=== PATIENT | female | born 1990 | race African-American/Black ===

== ENCOUNTER → 2021-06-17 10:03 | Outpatient (CLI) | payer OTHER, SELFPAY ==
[2021-06-17 12:08] LABS: Absolute Lymphocyte Count 1.54 X10^3/uL (0.83-4.51); Absolute Neutrophil Count 3.9 X10^3/uL (2.0-7.7); Basophil# 0.04 X10^3/uL; Basophil% 0.7 % (0-1); Eosinophil# 0.05 X10^3/uL; Eosinophils% 0.8 % (0-5); Hematocrit 32.3 % (37-47); Hemoglobin 11.2 g/dL (12.0-15.0); Lymphocyte # 1.54 X10^3/ul (0.83-4.51); Mean Corp Hgb Conc 34.7 g/dL (32-36); Mean Corpuscular Hgb 31.1 pg (27.0-32.0); Mean Corpuscular Volume 89.7 fL (81-99); Mean Platelet Vol. 10.3 fl (6.2-12.0); Monocyte# 0.58 X10^3/uL; Monocyte% 9.4 % (0-10); NRBC Flagged by Analyzer 0 % (0-5); Neutrophil # 3.92 X10^3/uL (2.7-7.7); Neutrophil % 63.8 % (47-70); Platelet Count 319 K/mm3 (150-450); RBC Distribution Width CV 13.3 % (11.6-14.6); RBC Distribution Width SD 43.9 fl (35.1-43.9); White Blood Count 6.2 K/mm3 (4.4-11.0)
[2021-06-17 12:52] LABS: HIV - WCH Non-Reactive (Nonreactive); Hepatitis B Surface Antigen Non-Reactive (Nonreactive); Hepatitis C Antibody Non-Reactive (Nonreactive); Rubella IgG Reactive (Nonreactive); Syphilis Antibodies Non-reactive
[2021-06-19 07:08] LABS: Chlamydia By Nucleic Acid AMP Negative (Negative)
[2021-06-19 20:56] LABS: HPV APTIMA, High Risk Negative (Negative)
[2021-06-19 21:05] LABS: Gonococcus By Nucleic Acid AMP Negative (Negative)
== END ==
PROVIDERS: Visit Provider Obstetrics & Gynecology
DX: Z34.82 Encounter for supervision of other normal pregnancy, second trimester (principal)
CPT/HCPCS: 85025; 86703; 86762; 86780; 86803; 87086; 87088; 87340; 87491; 87591; 87624; 88175; G0145

== ENCOUNTER → 2021-08-12 08:39 | Outpatient (CLI) | payer OTHER, SELFPAY ==
[2021-08-12 08:53] LABS: Hematocrit 28.7 % (37-47); Hemoglobin 9.9 g/dL (12.0-15.0); Mean Corp Hgb Conc 34.5 g/dL (32-36); Mean Corpuscular Hgb 30.9 pg (27.0-32.0); Mean Corpuscular Volume 89.7 fL (81-99); Mean Platelet Vol. 9.6 fl (6.2-12.0); Platelet Count 297 K/mm3 (150-450); RBC Distribution Width CV 11.8 % (11.6-14.6); White Blood Count 7.3 K/mm3 (4.4-11.0)
[2021-08-12 09:26] LABS: Glucose Challenge Gest 1H 50g 119 mg/dL (70-140)
== END ==
PROVIDERS: Visit Provider Obstetrics & Gynecology
DX: Z34.82 Encounter for supervision of other normal pregnancy, second trimester (principal)
CPT/HCPCS: 36415; 82950; 85027

== ENCOUNTER 2021-08-14 22:54 | Emergency (ER) | payer OTHER, SELFPAY ==
[2021-08-14 22:54] VITALS: BP 115/61; PULSE 87; RESP 16; TEMP 36.6; O2SAT 99; BMI 29.5
--- NOTE | 2021-08-14 23:15 | EDS_ITS ---
HPI History of Present Illness Chief Complaint: Abd Pain Informant: patient Narrative Narrative: Patient presents with vomiting with slight hematemesis and left upper quadrant pain. She is diagnosed with a duodenal ulcer about 5 or 6 years ago. It sounds like she has been on and off treatment. She started having more symptoms back in April of this year. She was having left upper quadrant pain, nausea vomiting with some blood. She had an endoscopy in April that verified an ulcer but they also found out she was at the time. It sounds like she was not started on any medications then. She has been having this problem ever since. She saw what sounds like her OB physician just recently and was prescribed ondansetron. It is not helping a lot. She has vomiting mostly at night. During the day she seems to be better. She is eating and drinking at times. She will vomit up some bright red blood on occasion. No clots. She will also vomit other times with no blood. It sounds like she is not on any meds for the ulcer specifically. Patient denies any pelvic pain. She has no pain below the umbilicus. She has no vaginal discharge or bleeding. No dysuria. Past medical history includes peptic ulcer disease Medications: Zofran No known drug allergies No recent surgeries [facility] Medical History (Updated 08/15/21 @ 00:[address] Shawn Jackson MD) Sickle cell anemia Home Medications esomeprazole magnesium [Nexium] 20 mg PO DAILY #30 cap 08/15/21 [Rx Last Taken Unknown] promethazine [Promethegan] 25 mg RECTAL Q6H PRN PRN #6 suppos. 08/15/21 [Rx Last Taken Unknown] Allergy/AdvReac Type Severity Reaction Status Date / Time No Known Allergies Allergy Verified 08/14/21 22:57 Social History Smoking Status: Never smoker ROS ROS ED Constitutional Constitutional ED: Denies chills or fever(s) ENT ENT ED: Denies rhinorrhea or sore throat Cardiovascular Cardiovascular: Denies chest pain Respiratory/Chest Respiratory/Chest: Denies cough, dyspnea or sputum Gastrointestinal Gastrointestinal: Reports abdominal pain, nausea and vomiting; Denies constipation, diarrhea or melena Genitourinary Genitourinary ED: Reports other Details: Patient currently 24 weeks . ; Denies dysuria, hematuria or urinary frequency Musculoskeletal Musculoskeletal: Denies back pain or neck pain Integumentary Denies rash Neurologic Neurologic: Denies headache(s) Endocrine Endocrinology: Denies polydipsia or polyuria Allergic/Immunologic Allergic/Immunologic ED: Denies mouth swelling or urticaria EXAM Physical Exam Const Vital Signs: 08/14/21 22:54 Temperature 97.8 F Temperature Source Temporal Pulse Rate 87 Respiratory Rate 16 Blood Pressure 115/61 Blood Pressure Mean 79 Pulse Ox 99 Oxygen Delivery Method Room Air Positive well nourished and well developed General Appearance ED: well developed and NAD; Negative for cyanotic, diaphoretic or pallor HEENT Reports dry mucous membranes Mouth ED: Yes dry mucous membranes Mouth: dry mucous membranes Eyes General Eye ED: Negative for pale conjunctiva or scleral icterus Neck no lymphadenopathy and no JVD Chest Wall inspection of chest normal Resp normal respiratory effort and clear to auscultation bilaterally Effort and Inspection: Negative for pain with movement Auscultation: Negative for rales, rhonchi or wheezes Cardio regular rate and regular rhythm GI normal to inspection, nondistended, normoactive bowel sounds, non-tender and non-distended GI Narrative: Uterus is palpable near her umbilicus. Patient has minimal if any epigastric area tenderness but no rebound or guarding. No right upper quadrant tenderness. Patient does vomit/wretch and spit out a small amount clear liquid while I am in the room. But there is no blood in it at this time. Palpation: soft Back/Spine no CVA tenderness Extremity normal to inspection General Extremety ED: Negative for edema or tenderness General Extremity: Negative for edema Neuro Sensorium / Orientation: alert Psych mental status grossly normal Skin no rashes or lesions noted and no wounds General Skin Exam: Negative for jaundice or pallor MDM MDM MDM Narrative Medical decision making narrative: Patient had hemoglobin of 9.9 couple days ago. She also is blood type positive. Patient's blood work shows a hemoglobin of 9.2. This is a slight reduction but not a significant change considering the variation on this test. Electrolytes show no marked abnormalities. Liver function tests look good. Patient's recheck. She has not had any vomiting or retching. She feels better. She is not having the nausea now. Her epigastric ache is also much better. I think this patient likely is having exacerbation of her duodenal/peptic ulcer disease. We will get her on proton pump inhibitor. Nexium is a category B drug. I will also add some Phenergan so she has 2 options for nausea. She will follow up with her OB physician, Dr. Winn. Lab Data Attestation: I reviewed the patient's lab results. Labs: Laboratory Results - last 24 hr 08/14/21 08/14/21 23:25 23:25 WBC 6.9 RBC 2.95 L Hgb 9.2 L Hct 26.6 L MCV 90.2 MCH 31.2 MCHC 34.6 RDW Std Deviation 38.4 RDW Coeff of French 11.8 Plt Count 283 MPV 9.6 Immature Gran % (Auto) 1.200 H Neut % (Auto) 60.7 Lymph % (Auto) 25.4 Meade % (Auto) 11.4 H Eos % (Auto) 0.9 Baso % (Auto) 0.4 Absolute Neuts (auto) 4.2 Absolute Lymphs (auto) 1.74 Nucleated RBC % 0 Sodium 139 Potassium 3.5 Chloride 107 Carbon Dioxide 24.0 Anion Gap 8 BUN 8 Creatinine 0.65 Estim Creat Clear Calc 126.50 Est GFR (MDRD) Af Amer 136 Est GFR (MDRD) Non-Af 112 BUN/Creatinine Ratio 12.3 Glucose 87 Calcium 8.6 Total Bilirubin 0.30 AST 23 ALT 46 Alkaline Phosphatase 66 Total Protein 6.4 Albumin 2.7 L Globulin 3.7 Albumin/Globulin Ratio 0.7 L Discharge Plan Triage Chief Complaint: Abd Pain ED Provider: Shawn Jackson Dx/Rx/DC Orders Clinical Impression: Peptic ulcer disease, Epigastric pain Instructions: ED PUD Prescriptions: New promethazine [Promethegan] 25 MG suppository 25 mg RECTAL Q6H PRN PRN (Reason: Nausea) Qty: 6 RF: 0 esomeprazole magnesium [Nexium] 20 mg capsule,delayed release(DR/EC) 20 mg PO DAILY Qty: 30 RF: 0 Primary Care Provider: Care Physician,No Primary Referrals: Liza Winn DO [STAFF PHYSICIAN] - 3-5 Days Care Physician,No Primary [Primary Care Provider] - Disposition Disposition: Home, Self Care
[2021-08-14] MEDS: Ondansetron 4 MG/2 ML Vial IV (23:23)
[2021-08-14] MEDS: 0.9% Normal Saline 1,000 ML 1000 ML IV (23:23)
[2021-08-14 23:43] LABS: Absolute Lymphocyte Count 1.74 X10^3/uL (0.83-4.51); Absolute Neutrophil Count 4.2 X10^3/uL (2.0-7.7); Basophil# 0.03 X10^3/uL; Basophil% 0.4 % (0-1); Eosinophil# 0.06 X10^3/uL; Eosinophils% 0.9 % (0-5); Hematocrit 26.6 % (37-47); Hemoglobin 9.2 g/dL (12.0-15.0); Lymphocyte # 1.74 X10^3/ul (0.83-4.51); Lymphocyte % 25.4 % (19-41); Mean Corp Hgb Conc 34.6 g/dL (32-36); Mean Corpuscular Hgb 31.2 pg (27.0-32.0); Mean Corpuscular Volume 90.2 fL (81-99); Mean Platelet Vol. 9.6 fl (6.2-12.0); Monocyte# 0.78 X10^3/uL; Monocyte% 11.4 % (0-10); NRBC Flagged by Analyzer 0 % (0-5); Neutrophil # 4.16 X10^3/uL (2.7-7.7); Neutrophil % 60.7 % (47-70); Platelet Count 283 K/mm3 (150-450); RBC Distribution Width CV 11.8 % (11.6-14.6); RBC Distribution Width SD 38.4 fl (35.1-43.9); Red Blood Count 2.95 M/mm3 (4.2-5.4); White Blood Count 6.9 K/mm3 (4.4-11.0)
[2021-08-14 23:48] LABS: ALB/GLOB Ratio 0.7 RATIO (0.9-2.4); AST(SGOT) 23 U/L (15-37); Alanine Aminotransfer ALT/SGPT 46 U/L (13-56); Albumin, Serum 2.7 g/dL (3.2-5.0); Alkaline Phosphatase 66 U/L (45-117); Anion Gap 8 (5-15); BUN 8 mg/dL (7-18); BUN/Creat Ratio 12.3 RATIO (10-20); Calcium,Total 8.6 mg/dL (8.5-10.1); Chloride 107 mmol/L (98-107); Creatinine, Serum 0.65 mg/dL (0.55-1.02); EST Glomerular Filtration Rate 112 mL/min (>60); Est Glom Filt Rate - Afr Amer 136 mL/min (>60); Globulin 3.7 g/dL (2.2-4.2); Glucose 87 mg/dL (74-106); Potassium 3.5 mmol/L (3.5-5.1); Protein, Total 6.4 g/dL (6.4-8.2); Sodium Level 139 mmol/L (136-145)
[2021-08-15 00:41] VITALS: BP 127/78; PULSE 70; RESP 16; O2SAT 100
== END 2021-08-15 00:43 | disposition home or self-care (01) ==
PROVIDERS: Emergency Provider Emergency Medicine
DX: O99.619 Diseases of the digestive system complicating pregnancy, unspecified trimester (principal); K26.9 Duodenal ulcer, unspecified as acute or chronic, without hemorrhage or perforation; Z3A.00 Weeks of gestation of pregnancy not specified
CPT/HCPCS: 80053; 85025; 96361; 96374; 99283; J7030; J2405; J3490

== ENCOUNTER → 2021-08-23 12:58 | Outpatient (CLI) | payer OTHER, SELFPAY ==
[2021-08-23 13:15] LABS: Absolute Lymphocyte Count 1.58 X10^3/uL (0.83-4.51); Absolute Neutrophil Count 6.4 X10^3/uL (2.0-7.7); Basophil# 0.04 X10^3/uL; Basophil% 0.5 % (0-1); Eosinophil# 0.06 X10^3/uL; Eosinophils% 0.7 % (0-5); Hematocrit 29.1 % (37-47); Hemoglobin 10.1 g/dL (12.0-15.0); Lymphocyte # 1.58 X10^3/ul (0.83-4.51); Lymphocyte % 17.8 % (19-41); Mean Corp Hgb Conc 34.7 g/dL (32-36); Mean Corpuscular Hgb 31.7 pg (27.0-32.0); Mean Corpuscular Volume 91.2 fL (81-99); Mean Platelet Vol. 9.5 fl (6.2-12.0); Monocyte# 0.79 X10^3/uL; Monocyte% 8.9 % (0-10); NRBC Flagged by Analyzer 0 % (0-5); Neutrophil # 6.36 X10^3/uL (2.7-7.7); Neutrophil % 71.5 % (47-70); Platelet Count 302 K/mm3 (150-450); RBC Distribution Width CV 11.9 % (11.6-14.6); RBC Distribution Width SD 39.9 fl (35.1-43.9); Red Blood Count 3.19 M/mm3 (4.2-5.4); White Blood Count 8.9 K/mm3 (4.4-11.0)
== END ==
PROVIDERS: Visit Provider Internal Medicine Gastroenterology
DX: K27.9 Peptic ulcer, site unspecified, unspecified as acute or chronic, without hemorrhage or perforation (principal)
CPT/HCPCS: 36415; 85025

== ENCOUNTER 2021-10-17 09:39 | Outpatient (CLI) | payer OTHER, SELFPAY ==
[2021-10-17 10:35] LABS: Absolute Lymphocyte Count 1.66 X10^3/uL (0.83-4.51); Basophil# 0.04 X10^3/uL; Basophil% 0.5 % (0-1); Eosinophil# 0.05 X10^3/uL; Eosinophils% 0.7 % (0-5); Hematocrit 27.7 % (37-47); Hemoglobin 9.1 g/dL (12.0-15.0); Lymphocyte # 1.66 X10^3/ul (0.83-4.51); Lymphocyte % 22.2 % (19-41); Mean Corp Hgb Conc 32.9 g/dL (32-36); Mean Corpuscular Hgb 28.6 pg (27.0-32.0); Mean Corpuscular Volume 87.1 fL (81-99); Mean Platelet Vol. 9.8 fl (6.2-12.0); Monocyte# 0.71 X10^3/uL; Monocyte% 9.5 % (0-10); NRBC Flagged by Analyzer 0 % (0-5); Neutrophil # 4.96 X10^3/uL (2.7-7.7); Neutrophil % 66.2 % (47-70); Platelet Count 292 K/mm3 (150-450); RBC Distribution Width CV 12.8 % (11.6-14.6); RBC Distribution Width SD 40.9 fl (35.1-43.9); Red Blood Count 3.18 M/mm3 (4.2-5.4); White Blood Count 7.5 K/mm3 (4.4-11.0)
[2021-10-17 11:25] LABS: ALB/GLOB Ratio 0.7 RATIO (0.9-2.4); AST(SGOT) 16 U/L (15-37); Alanine Aminotransfer ALT/SGPT 26 U/L (13-56); Albumin, Serum 2.7 g/dL (3.2-5.0); Alkaline Phosphatase 104 U/L (45-117); Anion Gap 7 (5-15); BUN 5 mg/dL (7-18); BUN/Creat Ratio 7.8 RATIO (10-20); Calcium,Total 8.6 mg/dL (8.5-10.1); Chloride 109 mmol/L (98-107); Creatinine, Serum 0.64 mg/dL (0.55-1.02); EST Glomerular Filtration Rate 115 mL/min (>60); Est Glom Filt Rate - Afr Amer 139 mL/min (>60); Globulin 3.8 g/dL (2.2-4.2); Glucose 86 mg/dL (74-106); Potassium 3.8 mmol/L (3.5-5.1); Protein, Total 6.5 g/dL (6.4-8.2); Sodium Level 138 mmol/L (136-145)
== END 2021-10-17 23:59 | disposition short-term general hospital (02) ==
LOC: LAB 09:42
PROVIDERS: Visit Provider Nurse Practitioner Adult Health
DX: R11.2 Nausea with vomiting, unspecified (principal)
CPT/HCPCS: 36415; 80053; 85025

== ENCOUNTER 2021-10-31 12:24 | Outpatient (CLI) | payer OTHER, SELFPAY | END 2021-10-31 23:59 | disposition short-term general hospital (02) | LOC: LABSPEC 12:24 | PROVIDERS: Visit Provider Obstetrics & Gynecology | DX: Z36.85 Encounter for antenatal screening for Streptococcus B (principal) | CPT/HCPCS: 87081 ==

== ENCOUNTER 2021-11-30 06:20 | Inpatient (IN) | payer OTHER, SELFPAY ==
[2021-11-30 06:16] VITALS: TEMP 36.8
[2021-11-30 06:27] VITALS: BMI 33.0
[2021-11-30] MEDS: Lactated Ringers 1,000 ML 50 ML IV (06:35)
[2021-11-30] MEDS: Lactated Ringers 500 ML 999 ML IV ×2 (06:36→09:17)
[2021-11-30 06:50] LABS: Absolute Lymphocyte Count 1.49 X10^3/uL (0.83-4.51); Absolute Neutrophil Count 8.2 X10^3/uL (2.0-7.7); Basophil# 0.03 X10^3/uL; Basophil% 0.3 % (0-1); Eosinophil# 0.03 X10^3/uL; Eosinophils% 0.3 % (0-5); Hematocrit 27.5 % (37-47); Lymphocyte # 1.49 X10^3/ul (0.83-4.51); Lymphocyte % 13.8 % (19-41); Mean Corp Hgb Conc 32.7 g/dL (32-36); Mean Corpuscular Hgb 25.5 pg (27.0-32.0); Mean Corpuscular Volume 77.9 fL (81-99); Mean Platelet Vol. 10.3 fl (6.2-12.0); Monocyte# 0.97 X10^3/uL; NRBC Flagged by Analyzer 0 % (0-5); Platelet Count 335 K/mm3 (150-450); RBC Distribution Width CV 14.7 % (11.6-14.6); RBC Distribution Width SD 41.5 fl (35.1-43.9); Red Blood Count 3.53 M/mm3 (4.2-5.4); White Blood Count 10.8 K/mm3 (4.4-11.0)
[2021-11-30] MEDS: Ondansetron 4 MG/2 ML Vial IV (07:02)
[2021-11-30] MEDS: 0.9% Saline Lock 10 ML Syringe IV (07:02)
--- NOTE | 2021-11-30 08:06 | PCM.HP.BLA ---
History and Physical Date of Admission: 11/30/21 ACOG ANTEPARTUM RECORD - HISTORY AND PHYSICAL (11/30/2021) Name: KARISSA BOOGIE History of this : This is a 31 year old [id number] presents at 40 wks + 4 days gestation in active labor. OB Physician: TYRA ESQUEDA MD Burket's Physician: UNDECIDED ...................................................................... : 1990 Age: 31 Address: [address] [place] [address] Phone: (H) [phone] (O) [phone] Insurance Carrier: [employer] [id number] Emergency Contact: MARY EDWARDS [phone] ...................................................................... Final JACQUE: 11/26/21 By Ultrasound: 16 weeks PARITY: (G-Total Pregnancies P-Fullterm,Premature,Induced AB,Spont AB, Ectopics, Multiple,Living) JACQUE CONFIRMATION: By LMP: 02/15/21 Final JACQUE: 11/26/21 OB PROBLEM LIST: EPDS score at NOB visit= 16 Enc office classes. Absent atrial septum , s/p MFM consult. echo wnl, atrial septum visualized. Follow up Peds Cardio 1-2 weeks GI consult for hematemesis , saw Friend all wnl Sickle Cell Trait ALLERGIES: No Known Allergies MEDICATIONS: Pepcid 20 mg tablet One pill by mouth twice a day 28 mg iron-800 mcg tablet One pill by mouth once a day Tums 200 mg calcium (500 mg) chewable tablet Zofran 4 mg tablet 1 PO every four to six hours PRN Nausea SOCIAL HISTORY: Smoking - Never Alcohol Use - denies drinking Diet - balanced Diet, one cup coffee and Water intake- < 60 cc. 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 Enc to take 15-20 min walks most days. 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 Illicit Drug Use - denies use of street drugs Sexual Activity - Residence - Lives w/ a roommate Place of - [facility] Hours Worked - FT Spouse-Sig Other Name - Seda Arredondo Spouse-Sig Other Occupation - MD in [facility] PRIOR DELIVERY HISTORY DEL DATE GEST LAB WT LB WT OZ TYPE ANES LABOR TX ANTEPARTUM FLOW CHART VISIT GE RTC FU F F MD U U DATE WK MD WKS HT PN HR M SS BP ED WT MD GL D EF ST __ ____ ___ __ __ ___ __ __ __ ___ __ __ __ ___ __ 25 Feb 40 JM 1 40 V + + 120/68 0 216 - - 1 18 Feb 39 JMW 1 38 + + 118/64 216 - - 1 50 -2 10 Feb 38 JM 1 38 V + + 109/67 0 213 tr - 04 Nov JM 1 37 V + + 124/74 0 214 - - Oct JM 1 36 V + + 116/70 0 211 - - Oct JM 1 35 V + + 116/62 0 211 - - Oct JM 2 33 V + + O 110/62 0 205 - - Oct 03 JM 2 31 V on + 100/62 0 204 08 Oct 01 JM 2 29 - + + 118/64 0 202 tr - Aug 28 JM 4 25 - + + 108/58 0 194 - - Jul 26 JM 4 - - on + 110/60 0 190 tr - 12 Jul 24 JM 4 21 - + ? 100/58 0 190 ne ne ANTEPARTUM NOTE(S): Nov 28 2021: Nov 21 2021: Doing Well and Good FM Nov 13 2021: reviewed FM, SROM, and labor Nov 07 2021: Oct 31 2021: doing well Oct 24 2021: doing well Oct 10 2021: doing well Sep 24 2021: see note Sep 10 2021: doing well Aug 12 2021: Jul 29 2021: feelng well. Glucola given. AM Jul 15 2021: see note COMPREHENSIVE ANTEPARTUM NOTE(S): Nov 28 2021: Louceline is 40w2d here for PNV. Good FM. No edema. States she has been feeling some period like cramps since about 5am this morning. BR Nov 28 2021: 40 weeks, cervical exam 1 cm. Cramping. Scheduled for induction of labor weeks Cytotec 7 PM. JM Nov 21 2021: Louceline is 39w2d here for PNV good FM no edema. Doing well no concerns. Would like cervix checked. BR Nov 13 2021: 38wks, no complaints. JM Nov 07 2021: Louceline is 37w2d here for PNV doing well no concerns or complaints. Good FM. No edema. Slight contractions. Still need urine sample. BR Nov 07 2021: 37wks, GBS negative. JM Nov 03 2021: H taken to OB. tkg Oct 31 2021: Louceline is 36w2d here for PNV with FOB. Good FM no edema. doing well has no concerns or complaints. Still need urine sample. BR Oct 31 2021: 36 weeks, GBS collected today. JM Oct 24 2021: Louceline is 35w6d here for PNV. Good FM. No edema. No concerns or questions at this time. Still need a urine sample. BR Oct 24 2021: 35 weeks, for clarification her FINAL JACQUE: 11/26/21 as previously documented. [place]. JM Oct 10 2021: 33w6d here for PNV positive movement, no edema. Doing well has no questions or concerns at this time. Still needs a urine sample. BR Oct 10 2021: 33wk, no complaints. GERD improved. JM Sep 24 2021: Relates GI specialist took her off Nexium d/t her anemia. She is on Pepcid now. Still with some complaint of the heartburn. She also feel very tired. Good mvmt. Encouraged Influenza and Tdap vaccines. Unable to leave UA today. LMT Sep 24 2021: 31 weeks, no complaints. Saw Dr. Burnette, started on Nexium but stopped because of anemia. Okay to restart Nexium, will consider repeat CBC at 36 weeks for hemoglobin level. JM Sep 10 2021: Louceline is [id number] she is here today for a PNV. Positive movement. No edema. She states she is doing well with no complaints or concerns. BR Sep 10 2021: 29wk, 1hr GTT wnl. Hgb 9.9, iron daily. saw [facility] for echo with office u/s with no atrial septum, echo wnl atrial septum visualized. Suggested 1-[address] Burnette, started her on protein drinks and following iron levels. JM Aug 12 2021: Louceline here 25 week PNV. FM good. Edema check good. She is having vomiting with blood once a day. She is wanting a referral to supervisor gelatin plant. She does have acid reflux. CB Aug 12 2021: 25 weeks repeat ultrasound today for limited cardiac views not visualized atrial septum. Again today with not visualized atrial septum otherwise AGA and no abnormalities noted. Educated patient on findings, will consult M for Doppler. 1 hour GTT today. Patient with vomiting mostly after dinner x1 started to have blood in vomit consult to Dr. Burnette GI specialist. Rx Zofran sent. JM Jul 29 2021: 23 weeks, anatomy ultrasound today with limited heart otherwise within normal limits . Depression improving. 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 having difficulty with visa for [place]. Educated on counseling versus medication for depression, patient at this time is scheduled for counseling with [facility]. Will hold on medication. For 1 hour GTT next visit. Jul 15 2021: Karissa is here for visit. She relates having issues with nausea, heartburn, refulx. She has tried Pepcid and Tums without a lot of reliief. She relates that she has a history of hiatel hernia and reflux. She notes that certain foods make it worse. Encouraged her to avoid those and fried, fatty foods. She can try increasing Pepcid to bid. She also notes L low back pain. Tylenol, heatin Jul 15 2021: 21wk, panel within normal limits. Be positive. Pap within normal limits. Patient with GERD, discussed Pepcid and Tums and diet choices. Patient with early signs of depression, will rediscuss with patient and consider medications next visit. Patient's in [facility], needs paperwork to come to [facility] for delivery. for anatomy ultrasound next visit. Jul 15 2021: NOB VISIT- Karissa is here at 21.3 w gest with JACQUE 11-22-21 planning a vag del at [facility] unsure of epidural or post disch ped care. Plans to breastfeed. 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 Karissa has NKAD, is a lifetime non smoker, non drinker and denies any stree REVIEW OF SYSTEMS: GENERAL - Denies fever, or chills SKIN - Denies rash, new skin lesions, or change in moles EYES - Denies blurred vision, or change in visual acuity EARS - Denies ear pain, or difficulty hearing NOSE - Denies nasal congestion, discharge, or bleeding MOUTH - Denies sore throat, or difficulty swallowing NECK - Denies pain or swelling RESPIRATORY - Denies shortness of breath, cough, wheezing CARDIOVASCULAR - Denies palpitations, chest pain, orthopnea, PND, peripheral edema, syncope or claudication GASTROINTESTINAL - Denies nausea, vomiting, diarrhea, constipation, Denies abdominal pain, melena and or bright red blood GENITOURINARY - Denies dysuria, frequency of urination, urgency, or hesitancy MUSCULOSKELETAL - Denies joint or muscle pain, or back pain NEUROLOGICAL - Denies localized numbness, weakness, or tingling PSYCHIATRIC - Denies depression, anxiety, substance abuse or suicide attempts ENDOCRINE - Denies heat or cold intolerance, weight loss or gain, increasing thirst HEMATO-IMMUNOLOGIC - Denies easy bruising, bleeding, oral ulcerations or recurrent infections GENETICS SCREENING: Age 35+ years: No Thalassemia: No Neural Tube Defect: No Down Syndrome: No MERON-SACHS: No Sickle Cell Disease: Yes Hemophilia: No Musc. Dystrophy: No Cystic Fibrosis: No-declines screening Magi Chorea: No Mental Retardation: No Fragile X: No Other genetic: No Other defects: No SABs/still births: No Drugs since LMP: No INFECTION HISTORY: High risk AIDS: No High risk Hepatitis: No Exposed to TB: No Exposed to Herpes: No Rash/viral illness since LMP: No History of STD: No MENSTRUAL HISTORY: *Menses Amount/Duration: 5 to 7 daysMenses Regularity: IrregularMenarche (Age Onset): 14* PAST SUMMARY: PARITY: 1. Total Pregnancies............ 1 2. Full Term Pregnancies........ 0 3. Premature.................... 0 4. Abortions - Induced.......... 0 5. Abortions - Spontaneous...... 0 6. Ectopics..................... 0 7. Multiple Births.............. 0 8. Living Children.............. 0 PHYSICAL EXAMINATION General Appearence: 31 yo female in no acute distress Vital Signs: AF, VSS Heart: RRR without rubs or gallops Lungs: CTA x 2 Breasts: deferred Abdomen: gravid Pelvis: Cervix: Presentation: cephalic Station: -2 Fetus: Size: AGA Movement: present Heart: present LAB TEST(S) ORDERED SINCE:03/01/21 08/12/2021 GLUCOSE CHALLENGE GEST 1H 50G 08/12/2021 CBC-COMPLETE BLOOD CNT NO DIFF 06/19/2021 URINE CULTURE 06/19/2021 PAP IG HPV APTIMA 18,45 06/19/2021 CHLAMYDIA/GC KIRBY APTIMA 06/17/2021 RUBELLA IGG 06/17/2021 T AND S-NO CHARGE W/PNP 06/17/2021 L509.8000 06/17/2021 HIV - WC 06/17/2021 HEPATITIS C ANTIBODY 06/17/2021 HEPATITIS B SURFACE ANTIGEN 06/17/2021 CBC W/DIFF, AUTOMATED 11/30/2021 COVID 19 AG RAPID (RN COLLECT) 11/30/2021 CBC W/DIFF, AUTOMATED 11/03/2021 RULE OUT BETA STREP (GRP. B) == ==== Order Observation Description Value Ref_Range A* Site == ==== CBC W/DIFF, AUT NOTE [facility] CBC W/DIFF, AUT WBC 10.8 K/mm3 4.4-11.0 ML CBC W/DIFF, AUT RBC 3.53 M/mm3 4.2-5.4 L ML CBC W/DIFF, AUT HGB 9.0 g/dL 12.0-15.0 L ML CBC W/DIFF, AUT HCT 27.5 37-47 L ML CBC W/DIFF, AUT MCV 77.9 fL 81-99 L ML CBC W/DIFF, AUT MCH 25.5 pg 27.0-32.0 L ML CBC W/DIFF, AUT MCHC 32.7 g/dL 32-36 ML CBC W/DIFF, AUT RDW CV 14.7 11.6-14.6 H ML CBC W/DIFF, AUT RDW SD 41.5 fl 35.1-43.9 ML CBC W/DIFF, AUT PLT 335 K/mm3 150-450 ML CBC W/DIFF, AUT MPV 10.3 fl 6.2-12.0 ML CBC W/DIFF, AUT NEUT% 76.0 47-70 H ML CBC W/DIFF, AUT LY% 13.8 19-41 L ML CBC W/DIFF, AUT MONO% 9.0 0-10 ML CBC W/DIFF, AUT EO% 0.3 0-5 ML CBC W/DIFF, AUT BASO% 0.3 0-1 ML CBC W/DIFF, AUT IG% 0.600 0.0-0.9 ML IG% - Immature Granulocytes (promyelocytes, myelocytes and metamyelocytes) > 1% indicates that a LEFT SHIFT is Present. CBC W/DIFF, AUT ABSOLUTE NEUT 8.2 X10 3/uL 2.0-7.7 H ML CBC W/DIFF, AUT ABSOLUTE LYMPH 1.49 X10 3/uL 0.83-4.51 ML CBC W/DIFF, AUT NUCLEATED RBC 0 0-5 ML COVID 19 AG RAP NOTE [facility] RULE OUT BETA S NOTE [facility] GLUCOSE CHALLEN NOTE [facility] GLUCOSE CHALLEN GLU GEST 50G 1H 119 mg/dL 70-140 ML CBC-COMPLETE BL NOTE [facility]ZMAN CBC-COMPLETE BL WBC 7.3 K/mm3 4.4-11.0 ML CBC-COMPLETE BL RBC 3.20 M/mm3 4.2-5.4 L ML CBC-COMPLETE BL HGB 9.9 g/dL 12.0-15.0 L ML CBC-COMPLETE BL HCT 28.7 37-47 L ML CBC-COMPLETE BL MCV 89.7 fL 81-99 ML CBC-COMPLETE BL MCH 30.9 pg 27.0-32.0 ML CBC-COMPLETE BL MCHC 34.5 g/dL 32-36 ML CBC-COMPLETE BL RDW CV 11.8 11.6-14.6 ML CBC-COMPLETE BL RDW SD 38.0 fl 35.1-43.9 ML CBC-COMPLETE BL PLT 297 K/mm3 150-450 ML CBC-COMPLETE BL MPV 9.6 fl 6.2-12.0 ML URINE CULTURE NOTE GUZMAN PN N [facility]~[address] [place], [address]~ T AND AB SCREEN GEL NEGATIVE ML HEPATITIS C ANT NOTE [facility]ZMAN HEPATITIS C ANT HEPATITIS C AB Non-Reactive Nonreactive ML Non Reactive: < 0.8 Equivocal: >/= 0.8 to < 1.0 Reactive: >/= 1.0 The CDC recommends that a reactive/equivocal HCV antibody result be followed up by the HCV Nucleic Acid Amplification test (646048) HEPATITIS B PADMA NOTE [facility] HEPATITIS B PADMA HEP B SURF AG Non-Reactive Nonreactive ML HIV - [facility] NOTE [facility] HIV - H HIV Non-Reactive Nonreactive ML L509.8000 NOTE [facility]ZMAN L509.8000 SYPHILIS ABS Non-reactive ML RUBELLA IGG NOTE [facility]ZMAN RUBELLA IGG RUBELLA IGG Reactive Nonreactive ML Antibody Results Interpretation of Immune Status Non Reactive Presumed Non-Immune Equivocal Equivocal Reactive Presumed Immune CBC W/DIFF, AUT NOTE [facility] CBC W/DIFF, AUT WBC 6.2 K/mm3 4.4-11.0 ML CBC W/DIFF, AUT RBC 3.60 M/mm3 4.2-5.4 L ML CBC W/DIFF, AUT HGB 11.2 g/dL 12.0-15.0 L ML CBC W/DIFF, AUT HCT 32.3 37-47 L ML CBC W/DIFF, AUT MCV 89.7 fL 81-99 ML CBC W/DIFF, AUT MCH 31.1 pg 27.0-32.0 ML CBC W/DIFF, AUT MCHC 34.7 g/dL 32-36 ML CBC W/DIFF, AUT RDW CV 13.3 11.6-14.6 ML CBC W/DIFF, AUT RDW SD 43.9 fl 35.1-43.9 ML CBC W/DIFF, AUT PLT 319 K/mm3 150-450 ML CBC W/DIFF, AUT MPV 10.3 fl 6.2-12.0 ML CBC W/DIFF, AUT NEUT% 63.8 47-70 ML CBC W/DIFF, AUT LY% 25.0 19-41 ML CBC W/DIFF, AUT MONO% 9.4 0-10 ML CBC W/DIFF, AUT EO% 0.8 0-5 ML CBC W/DIFF, AUT BASO% 0.7 0-1 ML CBC W/DIFF, AUT IG% 0.300 0.0-0.9 ML IG% - Immature Granulocytes (promyelocytes, myelocytes and metamyelocytes) > 1% indicates that a LEFT SHIFT is Present. CBC W/DIFF, AUT ABSOLUTE NEUT 3.9 X10 3/uL 2.0-7.7 ML CBC W/DIFF, AUT ABSOLUTE LYMPH 1.54 X10 3/uL 0.83-4.51 ML CBC W/DIFF, AUT NUCLEATED RBC 0 0-5 ML CHLAMYDIA/GC NA NOTE [facility] CHLAMYDIA/GC NA CHLAMY,NUC ACID Negative Negative [facility]CI CHLAMYDIA/GC NA GC BY NUC ACID Negative Negative [facility]CI Performed at: - [facility], [place] [id number] Special Delivery Mail Carrier: Miriam Lerner MD, Phone: [phone] PAP IG HPV APTI NOTE [facility] PAP IG HPV APTI DIAG Comment . [facility] NEGATIVE FOR INTRAEPITHELIAL LESION OR MALIGNANCY. PAP IG HPV APTI ADEQ Comment . [facility] Satisfactory for evaluation. Endocervical and/or squamous metaplastic cells (endocervical component) are present. PAP IG HPV APTI PERFORM Comment . [facility] Mariangel Santos, [employer] (ASCP) This liquid based ThinPrep(R) pap test was screened with the use of an image guided system. PAP IG HPV APTI COMM . . [facility] PAP IG HPV APTI PAPSMR Comment . [facility] The Pap smear is a screening test designed to aid in the detection of premalignant and malignant conditions of the uterine cervix. It is not a diagnostic procedure and should not be used as the sole means of detecting cervical cancer. Both false-positive and false-negative reports do occur. PAP IG HPV APTI HPV APTIMA, HR Negative Negative [facility] This nucleic acid amplification test detects fourteen high- risk HPV types (16,18,31,33,35,39,45,51,52,56,58,59,66,68) without differentiation. Performed at: - [facility], [place] [id number] Special Delivery Mail Carrier: Miriam Lerner MD, Phone: [phone] Performed at: =[address] [place] [id number] Special Delivery Mail Carrier: Miriam Lerner MD, Phone: [phone] *Negative results from patients with symptom onset beyond five days should be treated as presumptive and confirmed by a molecular assay if clinically necessary. Negative results should not be used as the sole basis for treatment or for patient management. COVID 19 AG RAPID (RN COLLECT) *Positive results do not differentiate between SARS-CoV and SARS-CoV-2. If differentation of the specific SARS virus is desired an additional sample and an additional order is required. COVID 19 AG RAPID (RN COLLECT) * This test has not been FDA cleared or approved; the test has been authorized by FDA under an Emergency Use Authorization (EAU) for use by laboratories certified under CLIA that meet the requirements to perform moderate, high, or waived complexity tests. COVID 19 AG RAPID (RN COLLECT) Normal Reference Range: Negative SARS-CoV-2 (COVID 19) Negative RAPID METHOD [employer] COVID19 Ag Card Group B Beta Streptococcus is not isolated. Below infection level. Mixed Gram Pos Gram Neg Org [place] Count 1000-10,000 B POSITIVE == ==== Impression /Plan: 40 wks + 4 days intrauterine in active labor. SROM with mod meconium. Preparations in progress for delivery.
[2021-11-30 08:14] VITALS: BP 124/74; PULSE 99
[2021-11-30] MEDS: Oxytocin 30 units/NS 500 ml 30 UNITS/500 ML IV.SOLN 334 UNITS IV (10:05)
--- NOTE | 2021-11-30 10:32 | OP.PCM_ITS ---
Maternal Data Information Final JACQUE: 11/26/21 Gestational age: 40 weeks 4 days gestation [place] Doctor Who Attended Delivery: YunielmelindashashiAkinikki Vaginal Delivery Maternal Presentation Maternal Presentation: Active Labor Operative Information Date of Procedure: 11/30/21 Pre-Operative Diagnosis: IUP Post-Operative Diagnosis: IUP Surgery / Procedure Performed: Spontaneous Vaginal Delivery Type of Anesthesia: Local with 1% Lidocaine Estimated Blood Loss: 350 cc Findings Description of Procedure: Spontaneous vaginal delivery of a viable female infant with Apgars of 8/9 from an occiput anterior presentation with thick meconium stained fluid and normal three-vessel placenta. Cord around the neck x1 tight. First-degree midline episiotomy extended to a second-degree midline laceration with vaginal sulcal tears of approximately 2 cm on the right and left. Repaired with 3-0 Rapide suture under local. Baby cried and move all extremities vigorously on delivery and attended by special care nursery personnel who were present for the delivery. Cord gases obtained. Sponges okay. Delivery physician: Zaheer Quinn MD. Presentation: Vertex Amniotic Membrane Rupture Type: Artificial Amniotic Fluid Description: Thick meconium Placental Delivery Description: Spontaneous Placenta Disposition: [facility] Cord Vessel Description: 3 Vessels Cord Entanglement: Around neck x 1, tight Cord Gases: ABG and VBG A Gender: Female (1 minute): 8 (5 minute): 9 Post Vaginal Delivery Medications Given After Delivery: IV Pitocin Episiotomy Description: Midline and 1st degree Laceration: Midline, Vaginal Extension/lac and 2nd degree Complication Complications: None
[2021-11-30] MEDS: Ibuprofen 600 MG Tablet PO (12:12)
[2021-11-30 16:00] VITALS: BP 115/69; PULSE 75; RESP 24; TEMP 36.8
[2021-11-30 20:40] VITALS: BP 116/71; PULSE 85; RESP 18; TEMP 36.8
[2021-12-01 00:05] VITALS: BP 105/70; PULSE 75; RESP 16; TEMP 36.8
[2021-12-01] MEDS: Benzocaine/Lanolin/Aloe Vera 1 SPRAY EACH TOPICAL (00:19)
[2021-12-01 03:25] VITALS: BP 112/57; PULSE 85; RESP 16; TEMP 36.7
--- NOTE | 2021-12-01 07:36 | PN.OBGYN_ITS ---
Subjective Subjective No overnight complaints Objective Data Objective Data Vital Signs: Vital Signs Temp Pulse Resp BP 98.0 F 85 16 112/57 L 12/01/21 03:25 12/01/21 03:25 12/01/21 03:25 12/01/21 03:25 Oxygen Delivery Method Room Air Weight: 217 lb 9.6 oz Body Mass Index (BMI) 33.0 Intake & Output: Intake and Output for Last 24 Hours 11/29/21 11/30/21 12/01/21 23:59 23:59 23:59 Intake Total 2884.17 / 2884.17 Output Total 750 / 750 Balance 2134.17 / 2134.17 Lab / Micro Data Result Diagrams: 11/30/21 06:35 Labs: Laboratory Results - last 24 hr 11/30/21 06:35: Blood Type B POSITIVE, Antibody Screen NEGATIVE Micro: Microbiology 11/30/21 06:34 Nasal Secretion SARS-CoV-2 Antigen (Rapid) - Final Physical Exam Const alert, oriented x3, no apparent distress, average body habitus, healthy appearing and well nourished HEENT normocephalic and moist oral mucous membranes Head and Scalp: atraumatic Face and Sinus: normal facial exam Eyes PERRL Neck full ROM Resp normal respiratory effort, no retractions and no use of accessory muscles GI GI Narrative: Soft, nontender, uterus firm below umbilicus Extremity normal to inspection, full ROM and no clubbing, cyanosis or edema Psych mental status grossly normal, affect normal, speech normal and activity/motor b ehavior normal Assessment & Plan (1) Vaginal delivery:
[2021-12-01] MEDS: Pantoprazole Sodium 20 MG Tablet PO (08:14)
[2021-12-01 08:15] VITALS: BP 108/61; PULSE 94; RESP 16; TEMP 36.8
[2021-12-01] MEDS: Ibuprofen 600 MG Tablet PO (08:18)
[2021-12-01] MEDS: Senna/Docusate Sodium 1 Tablet PO (08:26)
[2021-12-01 12:35] VITALS: BP 107/56; PULSE 57; RESP 16; TEMP 36
[2021-12-01] MEDS: Acetaminophen 500 MG Tablet 1000 MG PO ×2 (13:01→20:21)
[2021-12-01 17:00] VITALS: BP 105/54; PULSE 103; RESP 16; TEMP 36.7
[2021-12-01 19:39] VITALS: BP 103/45; PULSE 101; RESP 18; TEMP 36.9
[2021-12-02 03:00] VITALS: BP 113/56; PULSE 99; RESP 16; TEMP 36.7
[2021-12-02 08:30] VITALS: BP 107/58; PULSE 108; RESP 16; TEMP 36.7
[2021-12-02] MEDS: Acetaminophen 500 MG Tablet 1000 MG PO (08:49)
[2021-12-02] MEDS: Pantoprazole Sodium 20 MG Tablet PO (08:49)
[2021-12-02] MEDS: Senna/Docusate Sodium 1 Tablet PO (08:50)
--- NOTE | 2021-12-02 09:01 | PCM.DC ---
Discharge Instructions Diet Discharge Diet: No restrictions Activity Discharge Activity: Return to Normal Activity May resume sexual activity in: 6 weeks Lifting Restrictions: 10lb Dressing / Incision Call your doctor if you observe: Fever of 101 or Higher, Using more than 1 pad per hour, Shortness of breath, Chest pain, Calf discomfort, Uncontrolled pain and - (Persistent or severe headache) Follow Up Care Please Follow Up With: Henrik Winn MD When: 3 weeks for telehealth follow up 6 weeks for visit Test Results: Test results from this visit will be discussed in further detail at your follow-up appointment, if applicable. Discharge Plan Admission Admit Date/Time: 11/30/21 06:20 Primary Reason for Your Visit: Vaginal delivery Attending Provider: Zaheer Quinn Primary Care Provider: Care Physician,Julita Primary Discharge Orders/Prescriptions Prescriptions: Continued promethazine [Promethegan] 25 MG suppository 25 mg RECTAL Q6H PRN PRN (Reason: Nausea) Qty: 6 RF: 0 esomeprazole magnesium 20 mg capsule,delayed release(DR/EC) 20 mg PO DAILY RF: 0 Referrals / Follow Up: Care Physician,No Primary [Primary Care Provider] - Disposition Disposition (needs filled in before D/C Order can be placed): Home, Self Care
--- NOTE | 2021-12-02 09:03 | PCM.PN.OB ---
Subjective Subjective No issues overnight. Feels well though is sore. Denies heavy lochia. is going well. Objective Data Objective Data Vital Signs: Vital Signs Temp Pulse Resp BP 98.0 F 99 16 113/56 L 12/02/21 03:00 12/02/21 03:00 12/02/21 03:00 12/02/21 03:00 Oxygen Delivery Method Room Air Weight: 98.702 kg Body Mass Index (BMI) 33.0 Intake & Output: Intake and Output for Last 24 Hours 11/30/21 12/01/21 12/02/21 23:59 23:59 23:59 Intake Total 2884.17 / 2884.17 Output Total 750 / 750 Balance 2134.17 / 2134.17 Lab / Micro Data Result Diagrams: 11/30/21 06:35 Micro: Microbiology 11/30/21 06:34 Nasal Secretion SARS-CoV-2 Antigen (Rapid) - Final Physical Exam Const alert, oriented x3 and no apparent distress Resp normal respiratory effort and normal air movement Cardio regular rate and regular rhythm Uterus Palpation: uterus fundus firm and other OB fundus nontender Extremity no calf tenderness Extremity Narrative: trace LE edema Neuro oriented x3 Assessment & Plan (1) Vaginal delivery: PLAN: PPD#2 B positive d/c home
== END 2021-12-02 12:00 | disposition home or self-care (01) | DRG 807 ==
LOC: WPOUT 06:23 → WP 06:23
PROVIDERS: Admitting Provider Obstetrics & Gynecology; Visit Provider Obstetrics & Gynecology
DX: O42.92 Full-term premature rupture of membranes, unspecified as to length of time between rupture and onset of labor (principal); Z37.0 Single live birth; O69.1XX0 Labor and delivery complicated by cord around neck, with compression, not applicable or unspecified; O70.1 Second degree perineal laceration during delivery; O77.0 Labor and delivery complicated by meconium in amniotic fluid; Z3A.40 40 weeks gestation of pregnancy; Z23 Encounter for immunization
CPT/HCPCS: 59025; 59050; 85025; 86850; 86900; 86901; 87426; 99218; J7120; 90686; A4216; G0378; J2405

== ENCOUNTER → 2022-02-03 | Outpatient (CLI) | payer OTHER, SELFPAY ==
[2022-02-06 00:07] LABS: Chlamydia By Nucleic Acid AMP Negative (Negative)
[2022-02-06 08:36] LABS: Gonococcus By Nucleic Acid AMP Negative (Negative)
== END | disposition home or self-care (01) ==
LOC: LABSPEC 16:39
PROVIDERS: Visit Provider Obstetrics & Gynecology
DX: Z11.3 Encounter for screening for infections with a predominantly sexual mode of transmission (principal)
CPT/HCPCS: 87491; 87591

== ENCOUNTER 2025-04-12 08:16 | Inpatient (IN) | payer OTHER, SELFPAY ==
[2025-04-12] VITALS (33 sets, daily range): BP systolic 98–125; BP diastolic 52–100; PULSE 64–108; RESP 16–18; TEMP 36.4–37; O2SAT 97–100; BMI 38.9
--- OUTSIDE RECORDS SUMMARY | 2025-04-12 08:19 | XMS RPT_ITS | CCD ---
Author Organization [facility] Care Team Providers Care Head Automatic Sawyer Name Role Phone SHANE ROSARIO Unavailable Unavailable SHANE ROSARIO Unavailable Unavailable Care Physician, No Primary Primary Care Provider Unavailable Care Physician, No Primary Referring Provider Un available Shira CONTRACTING ENGINEER, CONTRACTING ENGINEER-C Yasmeen Antonio Attending Provider [phone] Juan CONTRACTING ENGINEER, CONTRACTING ENGINEER-C Sandy Attending Provider [phone] Unavailable Primary Care Provider Unavailabl e Unavailable Primary Care Provider Unavailabl e YANCY RODRIGUEZ Attending Unavailable HIREN JORDAN Attending Unavailable JANEEN ABBOTT Attending Unavailable FERN MARY Referring Unavailable YASMEEN EDMOND Attending Unavailable HATARIQ, YANCY Referring Unavailable CHEYENNE SINCLAIR Attending Unavailable YASMEEN EDMOND Referring Unavailable HAURY, YANCY Referring Unavailable CHRISTY ROSAS Attending Unavailable CHRISTY ROSAS Referring Unavailable HARSH ROMANRE Referring Unavail able FERN MARY Referring Unavailable TYRA, KARMON Referring Unavailable HAURY, YANCY Referring Unavailable NEHRASH JACKSONRE Attending Unavail able HAURY, YANCY Referring Unavailable FERN MARY Attending Unavailable FERN MARY Referring Unavailable FERN MARY Attending Unavailable FITO ANAYA MARISOL Referring Unavail able DULCE MILNER Attending Unavailable NEYCINDYT JACLYN, MARISOL Referring Unavail able ALISON CHRISTY Referring Unavailable HAURY, YANCY Attending Unavailable HAURY, YANCY Referring Unavailable HAURY, YANCY Referring Unavailable NOEMI BRUSH Attending Unavailable FERN MARY Attending Unavailable HIREN JORDAN Attending Unavailable FERN MARY Referring Unavailable Medications Current Medications Medication Drug Class(es) Dates Sig (Normalized) Sig (Original) 8 hr acetaminophen 650 mg extended release oral tablet (8 sources) take 1 tablet by mouth every eight hours as needed acetaminophen (TYLENOL 8 HOUR) 650 mg CR tablet Take 650 mg by mouth every 8 hours as needed for pain. Active aspirin 81 mg delayed release oral tablet (20 sources) Platelet Aggregation Inhibitor, Nonsteroidal Anti-inflammatory Drug Start: 09-13-2024 take 1 tablet by mouth once daily aspirin, enteric coated (ECOTRIN LOW STRENGTH) 81 mg EC tablet Indications: with uncertain dates in first trimester (HCC) Take 1 tablet by mouth once daily. 90 tablet 3 09/13/2024 Active doxycycline hyclate 100 mg oral tablet (2 sources) Tetracycline-class Drug Start: 01-14-2024 End: 01-21-2024 take 1 capsule by mouth twice daily doxycycline monohydrate (MONODOX) 100 mg capsule Indications: Chlamydial infection Take 1 capsule by mouth two times a day for 7 days. 14 capsule 0 01/14/2024 01/21/2024 Active Start: 01-14-2024 End: 01-21-2024 take 1 tablet by mouth twice daily doxycycline (VIBRA-TABS) 100 mg tablet Take 1 tablet by mouth two times a day for 7 days. 14 tablet 0 01/14/2024 01/21/2024 Active Comment on above: Take 1 tablet by mitul th two times a day for 7 days. Take 1 capsule by mo [facility] two times a day for 7 days. esomeprazole 20 mg delayed release oral capsule (3 sources) Proton Pump Inhibitor Start: End: 2 take 20 mg by mouth once daily Esomeprazole Magnesium Active 20 MG PO DAILY November 30, 2021 7:32am Start: 08-15-2021 End: 09-09-2021 Esomeprazole Magnesium (Nexi um) 20 mg capsule,delayed release(DR/EC) Discontinued 20 MG PO DAILY August 15, 2021 1:28am September 09, 2021 9:35am 1 pill twice a day for 1 week and then once daily ferrous sulfate 325 mg oral tablet (2 sources) ferrous sulfate (FEOSOL) 325 mg (65 mg iron) tablet Take 325 mg by mouth. Active pantoprazole 20 mg delayed release oral tablet (5 sources) Proton Pump Inhibitor Start: 03-13-20 take 1 tablet by mouth once daily pantoprazole DR (PROTONIX) 20 mg tablet Take 1 tablet by mouth once daily. 30 tablet 1 03/13/2025 Active PNV no.95/ferrous fum/folic ac ( ORAL) (20 sources) PNV no.95/ferrou s fum/folic ac ( ORAL) Take by mouth. Active promethazine hydrochloride 25 mg rectal suppository (1 source) Phenothiazine Start: 08-15-20 take 25 mg rectal route every six hours as needed Promethazine (Promethegan) 25 MG suppository Active 25 MG RECTAL EVERY 6 HOURS NEEDED August 15, 2021 1:28am Completed/Discontinued Medications Medication Drug Class(es) Dates Sig (Normalized) Sig (Original) 12 hr buPROPion hydrochloride 150 mg extended release oral tablet (8 sources) Aminoketone Start: 04-11-2024 End: 09-13-2024 take 36-36.9 tablets by mouth twice daily buPROPion SR (WELLBUTRIN SR) 150 mg 12 hr tablet Indications: Depression with anxiety , Craving for particular food , Class 2 severe obesity with serious comorbidity and body mass index (BMI) of 36.0 to 36.9 in adult, unspecified obesity type (HCC) Take 1 tablet by mouth two times a day. 180 tablet 04/11/2024 09/13/2024 Discontinued ergocalciferol 1.25 mg oral capsule (7 sources) Provitamin D2 Compound Start: 04-19-2024 End: 09-13-2024 take 1 capsule by mouth every week ergocalciferol 50,000 unit capsule (VITAMIN D2, DRISDOL) Indications: Vitamin D deficiency Take 1 capsule by mouth one time a week. 12 capsule 1 04/19/2024 09/13/2024 Discontinued famotidine 20 mg oral tablet (20 sources) Histamine-2 Receptor Antagonist Start: 09-13-2024 End: 03-13-2025 take 1 tablet by mouth twice daily famotidine (PEPCID) 20 mg tablet Indications: Heartburn during in first trimester (HCC) Take 1 tablet by mouth two times a day. 60 tablet 4 09/13/2024 03/13/2025 Discontinued Start: 08-19-2021 End: 09-09-2021 take 20 mg by mouth once daily Famotidine Discontinued 20 MG PO DAILY August 19, 2021 11:19am September 09, 2021 9:54am levonorgestrel 0.277335 mg/hr intrauterine system (7 sources) Progestin, Progestin-containing Intrauterine Device End: 04-11-2024 levonorgestrel (LILETTA) 20.4 mcg/24 hrs (8 yrs) 52 mg IUD 1 Each by INTRAUTERINE route one time only. 0 04/11/2024 Discontinued Comment on above: 1 Each by INTRAUTERI NE route one time only. metFORMIN hydrochloride 500 mg oral tablet (7 sources) Biguanide Start: 05-01-2024 End: 09-13-2024 take 36-36.9 tablets by mouth twice daily at mealtime metFORMIN (GLUCOPHAGE) 500 mg tablet Indications: PCOS (polycystic ovarian syndrome) , IFG (impaired fasting glucose) , Class 2 severe obesity with serious comorbidity and body mass index (BMI) of 36.0 to 36.9 in adult, unspecified obesity type (HCC) Take 1 tablet by mouth two times a day with meals. 180 tablet 05/01/2024 09/13/2024 Discontinued ondansetron 4 mg oral tablet (9 sources) Serotonin-3 Receptor Antagonist Start: 09-13-2024 End: 12-05-2024 take 1 tablet by mouth every eight hours as needed for nausea ondansetron (ZOFRAN) 4 mg tablet Indications: Nausea and vomiting during Take 1 tablet by mouth every 8 hours as needed for nausea/vomiting. 90 tablet 2 09/13/2024 12/05/2024 Discontinued sertraline 25 mg oral tablet (7 sources) Serotonin Reuptake Inhibitor Start: 01-13-2024 End: 04-11-2024 take 1 tablet by mouth once daily sertraline (ZOLOFT) 25 mg tablet Take 1 tablet by mouth once daily. 60 tablet 1 01/13/2024 04/11/2024 Discontinued Comment on above: Take 1 tablet by mitul th once daily. tirzepatide, weight loss (ZEPBOUND) 2.5 mg/0.5 mL pen injector (8 sources) Start: 04-11-2024 End: 09-13-2024 inject 2.5 mg by subcutaneous injection every week, then inject 5 mg by subcutaneous injection every week, then inject 7.5 mg by subcutaneous injection every week tirzepatide, weight loss (ZEPBOUND) 2.5 mg/0.5 mL pen injector Indications: Gastroesophageal reflux disease without esophagitis , IFG (impaired fasting glucose) , PCOS (polycystic ovarian syndrome) , Class 2 severe obesity with serious comorbidity and body mass index (BMI) of 36.0 to 36.9 in adult, unspecified obesity type (HCC) Inject 2.5 mg subcutaneously one time a week for 28 days, THEN 5 mg one time a week for 28 days, THEN 7.5 mg one time a week for 28 days. 12 04/11/2024 09/13/2024 Discontinued Start: 04-11-2024 inject 2.5 mg by sub cutaneous injection every week, then inject 5 mg by subcutaneous injection every week, then inject 7.5 mg by subcutaneous injection every week tirzepatide, weight loss (ZEPBOUND) 2.5 mg/0.5 mL pen injector Indications: Gastroesophageal reflux disease without esophagitis , IFG (impaired fasting glucose) , PCOS (polycystic ovarian syndrome) , Class 2 severe obesity with serious comorbidity and body mass index (BMI) of 36.0 to 36.9 in adult, unspecified obesity type (HCC) Inject 2.5 mg subcutaneously one time a week for 28 days, THEN 5 mg one time a week for 28 days, THEN 7.5 mg one time a week for 28 days. 12 04/11/2024 Active Start: 04-11-2024 End: 07-04-2024 inject 2.5 mg by subcutaneous injection every week, then inject 5 mg by subcutaneous injection every week, then inject 7.5 mg by subcutaneous injection every week tirzepatide, weight loss (ZEPBOUND) 2.5 mg/0.5 mL pen injector Indications: Gastroesophageal reflux disease without esophagitis , IFG (impaired fasting glucose) , PCOS (polycystic ovarian syndrome) , Class 2 severe obesity with serious comorbidity and body mass index (BMI) of 36.0 to 36.9 in adult, unspecified obesity type (HCC) Inject 2.5 mg subcutaneously one time a week for 28 days, THEN 5 mg one time a week for 28 days, THEN 7.5 mg one time a week for 28 days. 12 04/11/2024 07/04/2024 Active Start: 04-11-2024 End: 07-04-2024 inject 2.5 mg by subcutaneous injection every week, then inject 5 mg by subcutaneous injection every week, then inject 7.5 mg by subcutaneous injection every week tirzepatide, weight loss (ZEPBOUND) 2.5 mg/0.5 mL pen injector Indications: Gastroesophageal reflux disease without esophagitis , IFG (impaired fasting glucose) , PCOS (polycystic ovarian syndrome) , Class 2 severe obesity with serious comorbidity and body mass index (BMI) of 36.0 to 36.9 in adult, unspecified obesity type (HCC) Inject 2.5 mg subcutaneously one time a week for 28 days, THEN 5 mg one time a week for 28 days, THEN 7.5 mg one time a week for 28 days. 12 mL 0 04/11/2024 07/04/2024 Active Problems Active Problems Problem Classification Problem Date Documented Date Episodic/Chronic Abdominal pain (3 sources) Epigastric pain; Translations: [Epigastric pain] 01-13-2024 Episodic Anxiety disorders (20 sources) Mixed anxiety and depressive disorder; Translations: [Other specified anxiety disorders] Onset: 04-11-2024 04-11-2024 Chronic Contraceptive and procreative management (11 sources) Patient encounter status; Translations: [Encounter for removal of intrauterine contraceptive device] 01-13-2024 Episodic Diabetes or abnormal glucose tolerance complicating ; childbirth; or the puerperium (19 sources) Abnormal glucose level; Translations: [Abnormal glucose complicating ] Onset: 01-30-2025 01-30-2025 Episodic Esophageal disorders (20 sources) Gastroesophageal reflux disease; Translations: [Gastro-esophageal reflux disease without esophagitis] Onset: 04-11-2024 Chronic Immunizations and screening for infectious disease (6 sources) Encounter for screening for respiratory tuberculosis; Translations: [Patient encounter status] Onset: 02-11-2018 01-13-2024 Episodic Mood disorders (1 source) Depressive disorder; Translations: [Depression, unspecified depression type] 01-13-2024 Chronic Nausea and vomiting (2 sources) Nausea and vomiting; Translations: [Nausea with vomiting, unspecified] Episodic Nutritional deficiencies (20 sources) Vitamin D deficiency; Translations: [Vitamin D deficiency, unspecified] Onset: 10-04-2023 04-19-2024 Chronic Other complications of (20 sources) Maternal obesity complicating , childbirth and the puerperium, antepartum; Translations: [Obesity complicating , first trimester] Onset: 04-11-2024 09-13-2024 Chronic Other complications of (20 sources) Anemia in mother complicating , childbirth AND/OR puerperium; Translations: [Anemia complicating , third trimester] Onset: 01-30-2025 01-30-2025 Chronic Other complications of (1 source) Obesity complicating , third trimester; Translations: [Obesity affecting in third trimester, unspecified obesity type (HCC)] Onset: 03-13-2025 Chronic Other complications of (1 source) Anemia complicating , third trimester; Translations: [Anemia complicating , third trimester (HCC)] Onset: 01-30-2025 Chronic Other complications of (2 sources) Obesity complicating , second trimester; Translations: [Obesity affecting in second trimester, unspecified obesity type (HCC)] Onset: 11-13-2024 Chronic Other complications of (1 source) Obesity complicating , first trimester; Translations: [Obesity affecting in first trimester, unspecified obesity type] Onset: 09-13-2024 Chronic Other complications of (1 source) Other specified related conditions, unspecified trimester; Translations: [Other specified complications of , unspecified as to episode of care or not applicable] Episodic Other complications of (20 sources) High risk ; Translations: [Supervision of high risk , unspecified, first trimester] Onset: 09-13-2024 09-13-2024 Episodic Other complications of (2 sources) Multigravida of advanced maternal age; Translations: [Supervision of elderly multigravida, third trimester] 03-02-2025 Episodic Other complications of (1 source) Supervision of elderly multigravida, third trimester; Translations: [Multigravida of advanced maternal age in third trimester (HCC)] Onset: 03-02-2025 Episodic Other complications of (2 sources) Supervision of high risk , unspecified, second trimester; Translations: [Supervision of high risk in second trimester (HCC)] Onset: 11-13-2024 Episodic Other endocrine disorders (1 source) Polycystic ovarian syndrome; Translations: [PCOS (polycystic ovarian syndrome)] Onset: 04-11-2024 Chronic Other hematologic conditions (9 sources) History of sickle cell anemia; Translations: [Personal history of diseases of the blood and blood-forming organs and certain disorders involving the immune mechanism] Onset: 09-13-2024 09-13-2024 Episodic Other nutritional; endocrine; and metabolic disorders (1 source) Obesity; Translations: [Obesity, unspecified] 01-13-2024 Chronic Other nutritional; endocrine; and metabolic disorders (11 sources) Severe obesity; Translations: [Morbid (severe) obesity due to excess calories] Onset: 04-11-2024 04-10-2024 Chronic Other nutritional; endocrine; and metabolic disorders (1 source) Morbid (severe) obesity due to excess calories; Translations: [Class 2 severe obesity with serious comorbidity and body mass index (BMI) of 36.0 to 36.9 in adult, unspecified obesity type (HCC)] Onset: 04-11-2024 Chronic Other nutritional; endocrine; and metabolic disorders (1 source) Body mass index (BMI) 36.0-36.9, adult; Translations: [Class 2 severe obesity with serious comorbidity and body mass index (BMI) of 36.0 to 36.9 in adult, unspecified obesity type (HCC)] Onset: 04-11-2024 Chronic Other nutritional; endocrine; and metabolic disorders (1 source) Obesity, unspecified; Translations: [Class 2 obesity with body mass index (BMI) of 35.0 to 35.9 in adult, unspecified obesity type, unspecified whether serious comorbidity present] Onset: 04-11-2024 Chronic Other nutritional; endocrine; and metabolic disorders (1 source) Body mass index (BMI) 35.0-35.9, adult; Translations: [Class 2 obesity with body mass index (BMI) of 35.0 to 35.9 in adult, unspecified obesity type, unspecified whether serious comorbidity present] Onset: 04-11-2024 Chronic Other nutritional; endocrine; and metabolic disorders (1 source) Craving for particular food; Translations: [Other symptoms and signs concerning food and fluid intake] 04-11-2024 Episodic Other and delivery including normal (20 sources) Vaginal delivery; Translations: [Encounter for full-term uncomplicated delivery] Onset: 09-13-2024 Episodic Other screening for suspected conditions (not mental disorders or infectious disease) (7 sources) Cancer cervix screening status; Translations: [Encounter for screening for malignant neoplasm of cervix] Onset: 04-11-2024 01-13-2024 Episodic Other skin disorders (1 source) Eruption; Translations: [Rash and other nonspecific skin eruption] 03-02-2025 Episodic Other skin disorders (1 source) Rash and other nonspecific skin eruption; Translations: [Skin rash] Onset: 03-02-2025 Episodic Residual codes; unclassified (1 source) Gestation period, 8 weeks; Translations: [8 weeks gestation of ] 09-13-2024 Episodic Residual codes; unclassified (1 source) Gestation period, 12 weeks; Translations: [12 weeks gestation of ] 10-13-2024 Episodic Residual codes; unclassified (1 source) Gestation period, 16 weeks; Translations: [16 weeks gestation of ] 11-13-2024 Episodic Residual codes; unclassified (2 sources) Gestation period, 19 weeks; Translations: [19 weeks gestation of ] 12-05-2024 Episodic Residual codes; unclassified (1 source) Gestation period, 23 weeks; Translations: [23 weeks gestation of ] 01-02-2025 Episodic Residual codes; unclassified (2 sources) Gestation period, 27 weeks; Translations: [27 weeks gestation of ] 01-30-2025 Episodic Residual codes; unclassified (1 source) Gestation period, 29 weeks; Translations: [29 weeks gestation of ] 02-13-2025 Episodic Residual codes; unclassified (1 source) Gestation period, 32 weeks; Translations: [32 weeks gestation of ] 03-02-2025 Episodic Residual codes; unclassified (1 source) Gestation period, 33 weeks; Translations: [33 weeks gestation of ] 03-13-2025 Episodic Residual codes; unclassified (1 source) Gestation period, 37 weeks; Translations: [37 weeks gestation of ] 04-05-2025 Episodic Residual codes; unclassified (1 source) 37 weeks gestation of ; Translations: [37 weeks gestation of (HCC)] Onset: 04-05-2025 Episodic Residual codes; unclassified (1 source) 35 weeks gestation of ; Translations: [35 weeks gestation of (HCC)] Onset: 03-27-2025 Episodic Residual codes; unclassified (1 source) 33 weeks gestation of ; Translations: [33 weeks gestation of (HCC)] Onset: 03-13-2025 Episodic Residual codes; unclassified (1 source) 32 weeks gestation of ; Translations: [32 weeks gestation of (HCC)] Onset: 03-02-2025 Episodic Residual codes; unclassified (1 source) 31 weeks gestation of ; Translations: [31 weeks gestation of (HCC)] Onset: 02-23-2025 Episodic Residual codes; unclassified (1 source) 29 weeks gestation of ; Translations: [29 weeks gestation of (HCC)] Onset: 02-13-2025 Episodic Residual codes; unclassified (1 source) 27 weeks gestation of ; Translations: [27 weeks gestation of (HCC)] Onset: 01-30-2025 Episodic Sickle cell anemia (20 sources) 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; Translations: [Sickle-cell disease without crisis] Onset: 04-11-2024 Resolved: 12-05-2024 04-11-2024 Chronic Tuberculosis (3 sources) Tuberculosis; Translations: [Nonspecific reaction to cell mediated immunity measurement of gamma interferon antigen response without active tuberculosis] Onset: 02-11-2018 Unclassified (1 source) Encounter for immunization / Z23(ICD-10) Onset: 02-11-2018 Unclassified (20 sources) [facility] Education - COMMON Onset: 09-13-2024 09-13-2024 Unclassified (20 sources) Education - [place] Onset: 09-13-2024 09-13-2024 Past or Other Problems Problem Classification Problem Date Documented Da te Episodic/Chronic Abdominal hernia (20 sources) Hiatal hernia; Translations: [Diaphragmatic hernia without obstruction or gangrene] Onset: 4 09-13-2024 Episodic Administrative/social admission (20 sources) Language barrier impedes ability to use community resources; Translations: [Acculturation difficulty] Onset: 4 09-13-2024 Episodic Bacterial infection; unspecified site (20 sources) Chlamydial infection; Translations: [Chlamydial infection, unspecified] Onset: 4 Resolved: 4 01-14-2024 Episodic Diabetes mellitus without complication (20 sources) Impaired fasting glycemia; Translations: [Impaired fasting glucose] Onset: 4 Resolved: 5 04-11-2024 Episodic Disorders of lipid metabolism (20 sources) Dyslipidemia; Translations: [Hyperlipidemia, unspecified] Onset: 4 Resolved: 5 04-19-2024 Chronic Gastroduodenal ulcer (except hemorrhage) (20 sources) Peptic ulcer; Translations: [Peptic ulcer, site unspecified, unspecified as acute or chronic, without hemorrhage or perforation] Onset: 4 Resolved: 4 04-11-2024 Chronic Other complications of (20 sources) Heartburn; Translations: [Other specified related conditions, unspecified trimester] Onset: 4 09-13-2024 Episodic Other complications of (20 sources) Vomiting of , unspecified; Translations: [Unspecified vomiting of , unspecified as to episode of care or not applicable] Onset: 4 Resolved: 5 09-13-2024 Episodic Other complications of (20 sources) Diseases of the digestive system complicating , first trimester; Translations: [Other current conditions classifiable elsewhere of mother, antepartum condition or complication] Onset: 4 Resolved: 5 09-13-2024 Episodic Other complications of (2 sources) Other specified related conditions, first trimester; Translations: [Heartburn during in first trimester (HCC)] Onset: 4 Episodic Other complications of (1 source) Supervision of high risk , unspecified, third trimester; Translations: [Supervision of high risk in third trimester (HCC)] Onset: 5 Episodic Other complications of (1 source) Supervision of high risk , unspecified, first trimester; Translations: [Encounter for supervision of high risk in first trimester, antepartum] Onset: 4 Episodic Other endocrine disorders (20 sources) Polycystic ovary syndrome; Translations: [Polycystic ovarian syndrome] Onset: 4 Resolved: 5 01-13-2024 Chronic Other gastrointestinal disorders (20 sources) H/O: gastrointestinal disease; Translations: [Personal history of other diseases of the digestive system] Onset: 4 09-13-2024 Episodic Other gastrointestinal disorders (2 sources) Heartburn; Translations: [Heartburn during in first trimester (HCC)] Onset: 4 Episodic Other gastrointestinal disorders (1 source) Personal history of other diseases of the digestive system; Translations: [History of gastrointestinal ulcer] Onset: 4 Episodic Other gastrointestinal disorders (1 source) Constipation, unspecified; Translations: [Constipation during in first trimester] Onset: 4 Episodic Other hematologic conditions (1 source) Personal history of diseases of the blood and blood-forming organs and certain disorders involving the immune mechanism; Translations: [History of sickle cell anemia] Onset: 5 Episodic Other infections; including parasitic (20 sources) History of chlamydial infection; Translations: [Personal history of other infectious and parasitic diseases] Onset: 4 09-13-2024 Episodic Other infections; including parasitic (1 source) Personal history of other infectious and parasitic diseases; Translations: [History of chlamydia] Onset: 4 Episodic Residual codes; unclassified (20 sources) History of episiotomy; Translations: [Other specified postprocedural states] Onset: 4 09-13-2024 Episodic Residual codes; unclassified (20 sources) H/O: depression; Translations: [Personal history of other complications of , childbirth and the puerperium] Onset: 4 09-13-2024 Episodic Residual codes; unclassified (1 source) 19 weeks gestation of ; Translations: [19 weeks gestation of ] Onset: 5 Episodic Residual codes; unclassified (1 source) 8 weeks gestation of ; Translations: [8 weeks gestation of ] Onset: 4 Episodic Residual codes; unclassified (1 source) Other specified postprocedural states; Translations: [History of episiotomy] Onset: 4 Episodic Residual codes; unclassified (1 source) Personal history of other complications of , childbirth and the puerperium; Translations: [History of depression] Onset: 4 Episodic Screening and history of mental health and substance abuse codes (1 source) Personal history of other mental and behavioral disorders; Translations: [History of depression] Onset: 4 Episodic Sexually transmitted infections (not HIV or hepatitis) (20 sources) Human papillomavirus deoxyribonucleic acid test positive, high risk on cervical specimen; Translations: [Cervical high risk human papillomavirus (HPV) DNA test positive] Onset: 4 01-24-2024 Episodic Unclassified (1 source) Encounter for immunization; Translations: [Encounter for immunization] Onset: 8 Results Test Name Value Interpretation Reference Range Facil ity URINE OB DIP B/Oon 5 Glucose Ql (U) Negative Neg mg/dL [facility] Protein.monoclonal (U) [Mass/Vol] Negative Neg mg/dL [facility] Examination level ultrasound on 03-27-2025 [facility] Radiology Study observation (narrative) [facility] ROUTINE, GROUP B ST REPTOCOCCUS BY PCRon 03-27-2025 ROUTINE, GROUP B STREPTOCOCCUS BY PCR Not detected [facility] Comment on above: Performed By: #### G BPCR ####[facility] LABCLIA [id number] [place] [address] [place] CBC panel Auto (Bld)on 03-13 Erythrocyte distribution width (RBC) [Ratio] 13.4 % Normal 11.5-15.0 [facility] Comment on above: Order Comment: Speci men Type: BLOOD SPECIMENOrdering Facility: [facility] Address: [address] [place] [address] Performed By: #### 5 8410-2 ####[facility] [id number] [place] [address] [place] Hematocrit (Bld) [Volume fraction] 30.6 % Low 36.0-46.0 [facility] Comment on above: Order Comment: Speci men Type: BLOOD SPECIMENOrdering Facility: [facility] Address: [address] [place] [address] Performed By: #### 5 8410-2 ####[facility] [id number] [place] [address] [place] Hemoglobin (Bld) [Mass/Vol] 10.6 g/dL Low 11.5-15.5 [facility] Comment on above: Order Comment: Speci men Type: BLOOD SPECIMENOrdering Facility: [facility] Address: [address] [place] [address] Performed By: #### 5 8410-2 ####[facility]IAN [id number] [address] STATES [facility] MCH (RBC) [Entitic mass] 29.9 pg Normal 26.0-34.0 [facility] Comment on above: Order Comment: Speci men Type: BLOOD SPECIMENOrdering Facility: [facility] Address: [address] [place] [address] Performed By: #### 5 8410-2 ####[facility]ITALNCGUN[facility] [id number] [address] [place] MCHC (RBC) [Mass/Vol] 34.6 g/dL Normal 30.5-36.0 [facility] Comment on above: Order Comment: Speci men Type: BLOOD SPECIMENOrdering Facility: [facility] Address: [address] [place] [address] Performed By: #### 5 8410-2 ####[facility]ITALNCLIA [id number] [address] [place] MCV (RBC) [Entitic vol] 86.4 fL Normal 80.0-100.0 [facility] Comment on above: Order Comment: Speci men Type: BLOOD SPECIMENOrdering Facility: [facility] Address: [address] [place] [address] Performed By: #### 5 8410-2 ####[facility]ITALNCA [id number] [address] [place] Nucleated RBC (Bld) [#/Vol] 10*3/uL Normal <0.01 [facility] Comment on above: Order Comment: Speci men Type: BLOOD SPECIMENOrdering Facility: [facility] Address: [address] [place] [address] Performed By: #### 5 8410-2 ####[facility] AUDRANCDEBIA [id number] [place] [address] [place] Platelet mean volume (Bld) [Entitic vol] 9.5 fL Normal 9.0-12.7 [facility] Comment on above: Order Comment: Speci men Type: BLOOD SPECIMENOrdering Facility: [facility] Address: [address] [place] [address] Performed By: #### 5 8410-2 ####[facility]ITALNCLILIAN [id number] [place] [address] [place] Platelets (Bld) [#/Vol] 232 10*3/uL Normal 150-400 [facility] Comment on above: Order Comment: Speci men Type: BLOOD SPECIMENOrdering Facility: [facility] Address: [address] [place] [address] Performed By: #### 5 8410-2 ####[facility]ITALNCLIA [id number] [place] [address] [place] RBC (Bld) [#/Vol] 3.54 10*6/uL Low 3.90-5.20 [facility] Comment on above: Order Comment: Speci men Type: BLOOD SPECIMENOrdering Facility: [facility] Address: [address] [place] [address] Performed By: #### 5 8410-2 ####[facility]ITALNCLIA [id number] [place] [address] [place] WBC (Bld) [#/Vol] 8.20 10*3/uL Normal 3.70-11.00 [facility] Comment on above: Order Comment: Speci men Type: BLOOD SPECIMENOrdering Facility: [facility] Address: [address] [place] [address] Performed By: #### 5 8410-2 ####[facility] JAYLON CRUZ [id number] [address] [place] Kassi 03-13-2025 CNPN Telephone (OBGYWM) KARISSA ARIZA ([id number]) 1990 F Date Time Provider Department 03/13/25 JANEEN ABBOTT During your visit today, we recorded the following information about you: Chayito Cedeno RN 03/13/2025 1:58 PM Signed Breast pump order received from Prasanth Mulligan. To to sign. ARNOLD Horne Trisha, RN 03/13/2025 2:39 PM Signed Order signed and faxed. Chayito Cedeno RN Allergies As of Date: 03/13/2025 (No Known Allergies) Date Reviewed: 03/13/2025 Reviewed by: Steve Ramirez MA - Fully Assessed Reason for Visit: Breast Pump [Other] Prescriptions as of 03/13/2025 - pantoprazole DR (PROTONIX) 20 mg tablet Take 1 tablet by mouth once daily. - acetaminophen (TYLENOL 8 HOUR) 650 mg CR tablet Take 650 mg by mouth every 8 hours as needed for pain. - PNV no.95/ferrous fum/folic ac ( ORAL) Take by mouth. - aspirin, enteric coated (ECOTRIN LOW STRENGTH) 81 mg EC tablet Take 1 tablet by mouth once daily. 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/11/2024 12/05/2024 IFG (impaired fasting glucose) [R73.01] 04/11/2024 12/05/2024 Obesity affecting in second trimester*04/11/2024 Dyslipidemia [E78.5] 202312/05/2024 Vitamin D deficiency [E55.9] 2023 Supervision of high risk in second tr*09/13/2024 History of episiotomy [Z98.890] 09/13/2024 Sickle cell trait (HCC) [D57.3] 09/13/2024 Language barrier [Z60.3, Z75.8] 09/13/2024 History of gastrointestinal ulcer [Z87.19] 09/13/2024 Hiatal hernia [K44.9] 09/13/2024 History of depression [Z87.59, Z86.5*09/13/2024 Nausea and vomiting during [O21.9] 09/13/2024 11/13/2024 History of chlamydia [Z86.19] 09/13/2024 Dichorionic diamniotic twin in first *09/13/2024 Constipation during in first trimeste*09/13/2024 11/13/2024 Heartburn during in first trimester [*09/13/2024 Anemia complicating , third trimester *01/30/2025 Abnormal glucose complicating (HCC) [*01/30/2025 Encounter Status:Closed by CHAYITO CEDENO on 03/13/25 [facility] Examination level ultrasound on 03-02-2025 [facility] Radiology Study observation (narrative) [facility] Kassi 02-23-2025 CRISTINA Telephone (OBGYWM) KARISSA ARIZA ([id number]) 1990 F Date Time Provider Department 02/23/25 JANEEN ABBOTT During your visit today, we recorded the following information about you: Valerio Chavez RN 02/23/2025 8:24 AM Signed 31w2d Pt calls stating her legs slid under her yesterday as her floor was wet. States did not land on floor/did not hit abdomen-caught herself with counter top. However, since has been having time moving lower body with c/o pelvic pain down through vaginal area AND low back pain. Rating pain 7/10 with movement/standing. With sitting/no movement -not painful. Has not tried taking anything for pain. Pt states she put Vicks on her back-states did not help. Active movement. Denies vaginal bleeding/LOF. Advised Pt to try taking Tylenol 1000mg every 6 hours as needed and use heating pad to low back, but did schedule Pt to be evaluated in office today at 1050 with SW as Pt is with sampson twins and having difficulty moving. Valerio Chavez RN Allergies As of Date: 02/23/2025 (No Known Allergies) Date Reviewed: 02/13/2025 Reviewed by: Tash Romero MA - Fully Assessed Prescriptions as of 02/23/2025 - PNV no.95/ferrous fum/folic ac ( ORAL) Take by mouth. - aspirin, enteric coated (ECOTRIN LOW STRENGTH) 81 mg EC tablet Take 1 tablet by mouth once daily. - famotidine (PEPCID) 20 mg tablet Take 1 tablet by mouth two times a day. 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/11/2024 12/05/2024 IFG (impaired fasting glucose) [R73.01] 04/11/2024 12/05/2024 Obesity affecting in second trimester*04/11/2024 Dyslipidemia [E78.5] 202312/05/2024 Vitamin D deficiency [E55.9] 2023 Supervision of high risk in second tr*09/13/2024 History of episiotomy [Z98.890] 09/13/2024 Sickle cell trait (HCC) [D57.3] 09/13/2024 Language barrier [Z60.3, Z75.8] 09/13/2024 History of gastrointestinal ulcer [Z87.19] 09/13/2024 Hiatal hernia [K44.9] 09/13/2024 History of depression [Z87.59, Z86.5*09/13/2024 Nausea and vomiting during [O21.9] 09/13/2024 11/13/2024 History of chlamydia [Z86.19] 09/13/2024 Dichorionic diamniotic twin in first *09/13/2024 Constipation during in first trimeste*09/13/2024 11/13/2024 Heartburn during in first trimester [*09/13/2024 Anemia complicating , third trimester *01/30/2025 Abnormal glucose complicating (HCC) [*01/30/2025 Encounter Status:Closed by VALERIO CHAVEZ on 02/23/25 [facility] GLUCOSE GESTATIONAL, 1 HOURo n 01-31-2025 Glucose 1 Hr post Unsp challenge [Mass/Vol] 185 mg/dL High 74-179 [facility] Comment on above: Order Comment: Speci men Type: BLOOD SPECIMEN Ordering Facility: [facility] Address: [facility] [place] [address] Result Comment: [facility] Congress of Obstetricians and Gynecologists (Patrick/Linda) guidelines state gestational diabetes mellitus is present when 2 or more of the plasma glucose concentrations meet or exceed the following levels: fastin mg/dl, 1 hr: 180 mg/dl, 2 hr: 155 mg/dl, and 3 hr: 140 mg/dl. Performed By: #### 2 276-4, 70427-7 #### [facility] CLIA [id number] [address] [place] [address] [place] GLUCOSE GESTATIONAL, 2 HOURo n 01-31-2025 Glucose 2 Hr post Unsp challenge [Mass/Vol] 141 mg/dL Normal 74-154 [facility] Comment on above: Order Comment: Giovanni rosa Type: BLOOD SPECIMENOrdering Facility: [facility] Address: [address] [place] [address] Result Comment: [facility] Congress of Obstetricians and Gynecologists (Nguyen/Coustan) guidelines state gestational diabetes mellitus is present when 2 or more of the plasma glucose concentrations meet or exceed the following levels: fastin mg/dl, 1 hr: 180 mg/dl, 2 hr: 155 mg/dl, and 3 hr: 140 mg/dl. Performed By: #### G TGST2 ####[facility] [id number] [place] [address] [place] GLUCOSE GESTATIONAL, 3 HOURo n 01-31-2025 Glucose 3 Hr post Unsp challenge [Mass/Vol] 93 mg/dL Normal 74-139 [facility] Comment on above: Order Comment: Giovanni rosa Type: BLOOD SPECIMENOrdering Facility: [facility] Address: [address] [place] [address] Result Comment: [facility] Congress of Obstetricians and Gynecologists ([place]) guidelines state gestational diabetes mellitus is present when 2 or more of the plasma glucose concentrations meet or exceed the following levels: fastin mg/dl, 1 hr: 180 mg/dl, 2 hr: 155 mg/dl, and 3 hr: 140 mg/dl. Performed By: #### G TGST3 ####[facility] [id number] [place] [address] [place] GLUCOSE GESTATIONAL, FASTING on 01-31-2025 Glucose post fast [Mass/Vol] 90 mg/dL Normal 74-94 [facility] Comment on above: Order Comment: Speci men Type: BLOOD SPECIMENOrdering Facility: [facility] Address: [address] [place] [address] Result Comment: [facility] Congress of Obstetricians and Gynecologists (Patrick/Linda) guidelines state gestational diabetes mellitus is present when 2 or more of the plasma glucose concentrations meet or exceed the following levels: fastin mg/dl, 1 hr: 180 mg/dl, 2 hr: 155 mg/dl, and 3 hr: 140 mg/dl. Performed By: #### G TGSTF ####[facility] [id number] [place] [address] [place] CBC W Auto Differential pane l (Bld)on 01-30-2025 Basophils (Bld) [#/Vol] 0.03 10*3/uL Normal <0.11 [facility] Comment on above: Order Comment: Speci men Type: BLOOD SPECIMEN Ordering Facility: [facility] Address: [address] [place] [address] Performed By: #### 2 276-4, 00336-8 #### [facility] CLIA [id number] [address] [place] [address] [place] Basophils/100 WBC (Bld) 0.4 % Normal [facility] Comment on above: Order Comment: Speci men Type: BLOOD SPECIMEN Ordering Facility: [facility] Address: [address] [place] [address] Performed By: #### 2 276-4, 76184-2 #### [facility] CLIA [id number] [address] [place] [address] [place] Differential cell count method Nom (Bld) Auto Normal [facility] Comment on above: Order Comment: Speci men Type: BLOOD SPECIMEN Ordering Facility: [facility] Address: [address] [place] [address] Performed By: #### 2 276-4, 31684-0 #### [facility] CLIA [id number] [address] [place] [address] [place] Eosinophils (Bld) [#/Vol] 0.07 10*3/uL Normal <0.46 [facility] Comment on above: Order Comment: Speci men Type: BLOOD SPECIMEN Ordering Facility: [facility] Address: [address] [place] [address] Performed By: #### 2 276-4, 60630-9 #### [facility] CLIA [id number] [address] [place] [address] [place] Eosinophils/100 WBC (Bld) 1.0 % Normal [facility] Comment on above: Order Comment: Speci men Type: BLOOD SPECIMEN Ordering Facility: [facility] Address: [address] [place] [address] Performed By: #### 2 276-4, 69601-7 #### [facility] CLIA [id number] [address] [place] [address] [place] Erythrocyte distribution width (RBC) [Ratio] 12.9 % Normal 11.5-15.0 [facility] Comment on above: Order Comment: Speci men Type: BLOOD SPECIMEN Ordering Facility: [facility] Address: [address] [place] [address] Performed By: #### 2 276-4, 68944-7 #### [facility] CLIA [id number] [address] [place] [address] [place] Hematocrit (Bld) [Volume fraction] 30.1 % Low 36.0-46.0 [facility] Comment on above: Order Comment: Speci men Type: BLOOD SPECIMEN Ordering Facility: [facility] Address: [address] [place] [address] Performed By: #### 2 276-4, 49554-6 #### [facility] CLIA [id number] [address] [place] [address] [place] Hemoglobin (Bld) [Mass/Vol] 10.3 g/dL Low 11.5-15.5 [facility] Comment on above: Order Comment: Speci men Type: BLOOD SPECIMEN Ordering Facility: [facility] Address: [address] [place] [address] Performed By: #### 2 276-4, 27160-7 #### [facility] CLIA [id number] [address] [place] [address] [place] Immature granulocytes (Bld) [#/Vol] 0.06 10*3/uL Normal <0.10 [facility] Comment on above: Order Comment: Speci men Type: BLOOD SPECIMEN Ordering Facility: [facility] Address: [address] [place] [address] Performed By: #### 2 276-4, 18391-2 #### [facility] CLIA [id number] [address] [place] [address] [place] Immature granulocytes/100 WBC (Bld) 0.8 % Normal [facility] Comment on above: Order Comment: Speci men Type: BLOOD SPECIMEN Ordering Facility: [facility] Address: [address] [place] [address] Performed By: #### 2 276-4, 81313-0 #### [facility] CLIA [id number] [address] [place] [address] [place] Lymphocytes (Bld) [#/Vol] 1.24 10*3/uL Normal 1.00-4.00 [facility] Comment on above: Order Comment: Speci men Type: BLOOD SPECIMEN Ordering Facility: [facility] Address: [address] [place] [address] Performed By: #### 2 276-4, 73491-7 #### [facility] CLIA [id number] [address] [place] [address] [place] Lymphocytes/100 WBC (Bld) 17.0 % Normal [facility] Comment on above: Order Comment: Speci men Type: BLOOD SPECIMEN Ordering Facility: [facility] Address: [address] [place] [address] Performed By: #### 2 276-4, 00897-0 #### [facility] CLIA [id number] [address] [place] [address] [place] MCH (RBC) [Entitic mass] 30.4 pg Normal 26.0-34.0 [facility] Comment on above: Order Comment: Speci men Type: BLOOD SPECIMEN Ordering Facility: [facility] Address: [address] [place] [address] Performed By: #### 2 276-4, 87463-9 #### [facility] CLIA [id number] [address] [place] [address] [place] MCHC (RBC) [Mass/Vol] 34.2 g/dL Normal 30.5-36.0 [facility] Comment on above: Order Comment: Speci men Type: BLOOD SPECIMEN Ordering Facility: [facility] Address: [address] [place] [address] Performed By: #### 2 276-4, 52868-1 #### [facility] CLIA [id number] [address] [place] [address] [place] MCV (RBC) [Entitic vol] 88.8 fL Normal 80.0-100.0 [facility] Comment on above: Order Comment: Speci men Type: BLOOD SPECIMEN Ordering Facility: [facility] Address: [address] [place] [address] Performed By: #### 2 276-4, 54249-2 #### [facility] CLIA [id number] [address] [place] [address] [place] Monocytes (Bld) [#/Vol] 0.38 10*3/uL Normal <0.87 [facility] Comment on above: Order Comment: Speci men Type: BLOOD SPECIMEN Ordering Facility: [facility] Address: [address] [place] [address] Performed By: #### 2 276-4, 33094-2 #### [facility] CLIA [id number] [address] [place] [address] [place] Monocytes/100 WBC (Bld) 5.2 % Normal [facility] Comment on above: Order Comment: Speci men Type: BLOOD SPECIMEN Ordering Facility: [facility] Address: [address] [place] [address] Performed By: #### 2 276-4, 33759-2 #### [facility] CLIA [id number] [address] [place] [address] [place] Neutrophils (Bld) [#/Vol] 5.51 10*3/uL Normal 1.45-7.50 [facility] Comment on above: Order Comment: Speci men Type: BLOOD SPECIMEN Ordering Facility: [facility] Address: [address] [place] [address] Performed By: #### 2 276-4, 07629-4 #### [facility] CLIA [id number] [address] [place] [address] [place] Neutrophils/100 WBC (Bld) 75.6 % Normal [facility] Comment on above: Order Comment: Speci men Type: BLOOD SPECIMEN Ordering Facility: [facility] Address: [address] [place] [address] Performed By: #### 2 276-4, 95161-3 #### [facility] CLIA [id number] [address] [place] [address] [place] Nucleated RBC (Bld) [#/Vol] 10*3/uL Normal <0.01 [facility] Comment on above: Order Comment: Speci men Type: BLOOD SPECIMEN Ordering Facility: [facility] Address: [address] [place] [address] Performed By: #### 2 276-4, 92892-5 #### [facility] CLIA [id number] [address] [place] [address] [place] Nucleated RBC/100 WBC (Bld) [Ratio] 0.0 /100 WBC Normal [facility] Comment on above: Order Comment: Speci men Type: BLOOD SPECIMEN Ordering Facility: [facility] Address: [address] [place] [address] Performed By: #### 2 276-4, 04662-1 #### [facility] CLIA [id number] [address] [place] [address] [place] Platelet mean volume (Bld) [Entitic vol] 9.4 fL Normal 9.0-12.7 [facility] Comment on above: Order Comment: Speci men Type: BLOOD SPECIMEN Ordering Facility: [facility] Address: [address] [place] [address] Performed By: #### 2 276-4, 78974-4 #### [facility] CLIA [id number] [address] [place] [address] [place] Platelets (Bld) [#/Vol] 257 10*3/uL Normal 150-400 [facility] Comment on above: Order Comment: Speci men Type: BLOOD SPECIMEN Ordering Facility: [facility] Address: [address] [place] [address] Performed By: #### 2 276-4, 37503-1 #### [facility] CLIA [id number] [address] [place] [address] [place] RBC (Bld) [#/Vol] 3.39 10*6/uL Low 3.90-5.20 [facility] Comment on above: Order Comment: Speci men Type: BLOOD SPECIMEN Ordering Facility: [facility] Address: [address] [place] [address] Performed By: #### 2 276-4, 72155-9 #### [facility] CLIA [id number] [address] [place] [address] [place] WBC (Bld) [#/Vol] 7.29 10*3/uL Normal 3.70-11.00 [facility] Comment on above: Order Comment: Speci men Type: BLOOD SPECIMEN Ordering Facility: [facility] Address: [address] [place] [address] Performed By: #### 2 276-4, 54502-5 #### [facility] CLIA [id number] [address] [place], [place] [id number] [place] Examination level ultrasound on 01-30-2025 [facility] Radiology Study observation (narrative) [facility] Ferritin SerPl-mCncon 2024 Ferritin [Mass/Vol] 16.4 ng/mL Normal 14.7-205.1 [facility] Comment on above: Order Comment: Giovanni rosa Type: BLOOD SPECIMEN Ordering Facility: [facility] Address: [address] [place] [address] Performed By: #### 2 276-4, 21556-0 #### [facility] CLIA [id number] [address] [place] [address] [place] GESTATIONAL GLUCOSE SCREEN, 1-HOUR, 50 GRAM, NON-FASTINGon 01-30-2025 Glucose [Mass/Vol] 171 mg/dL High 74-134 [facility] Comment on above: Order Comment: Giovanni rosa Type: BLOOD SPECIMENOrdering Facility: [facility] Address: [address] [place] [address] Result Comment: [facility] Congress of Obstetricians and Gynecologists (Nguyen/Linda) guidelines state a gestational diabetes mellitus positive screen is made, in women not previously diagnosed with overt diabetes, when the 1 hr plasma glucose level is equal to or above 140 mg/dL. The [facility] [place] recommends a 135 mg/dL cutoff. Performed By: #### G LTGST ####[facility] JAYLON MILLST. VINCENT [facility]ANK[facility] HOSPITALLIA [id number] [place] [id number] [place] Iron and Iron binding capaci ty panelon 01-30-2025 Iron [Mass/Vol] 130 ug/dL Normal 41-186 [facility] Comment on above: Order Comment: Giovanni rosa Type: BLOOD SPECIMEN Ordering Facility: [facility] Address: [address] [place] [address] Performed By: #### 2 276-4, 95307-0 #### [facility] CLIA [id number] [address] [place] [address] [place] Iron binding capacity [Mass/Vol] 418 ug/dL High 232-386 [facility] Comment on above: Order Comment: Speci men Type: BLOOD SPECIMEN Ordering Facility: [facility] Address: [address] [place] [address] Performed By: #### 2 276-4, 71862-4 #### [facility] CLIA [id number] [address] [place] [address] [place] Iron/TIBC [Molar ratio] 31.1 % Normal 15.0-57.0 [facility] Comment on above: Order Comment: Speci men Type: BLOOD SPECIMEN Ordering Facility: [facility] Address: [address] [place] [address] Performed By: #### 2 276-4, 16085-4 #### [facility] CLIA [id number] [address] [place] [address] [place] Reagin and Treponema pallidu m IgG and IgM [Interp]on 01-30-2025 T. pallidum IgG+IgM IA Ql (S) Non-Reactive Normal Nonreactive [facility] Comment on above: Order Comment: Speci men Type: BLOOD SPECIMEN Ordering Facility: [facility] Address: [address] [place] [address] Performed By: #### 2 276-4, 69263-6 #### [facility] CLIA [id number] [address] [place] [address] [place] Reagin+T pallidum IgG+IgM Se rPl-Impon 01-30-2025 Reagin and Treponema pallidum IgG and IgM [Interp] Cannot exclude recent Treponemal infection if specimen collected within 7-10 days after appearance of suspect lesions or 2-3 weeks after an exposure. Clinical correlation is required. [facility] Comment on above: Order Comment: Speci men Type: BLOOD SPECIMEN Ordering Facility: [facility] Address: [address] [place] [address] Performed By: #### 2 276-4, 39348-9 #### [facility] CLIA [id number] [address] [place] [address] [place] [address] [place] CNCOon 01-25-2025 CNCO Letter Text [facility] CNPNon 01-25-2025 CNPN Telephone (4CQ) KARISSA ARIZA ([id number]) 1990 F Date Time Provider Department 01/25/25 [facility] 4CQ During your visit today, we recorded the following information about you: Mackenzie Farley 01/25/2025 9:07 AM Signed [facility] asking if Patient has any corresponding restrictions regarding x rays,medication, or any dental care can they be faxed over o [phone]. Please advise, Thank you Dulce Chang RN 01/25/2025 9:18 AM Signed Letter faxed. [employer] message sent to patient. Dulce Chang RN Allergies As of Date: 01/25/2025 (No Known Allergies) Date Reviewed: 01/02/2025 Reviewed by: Yasmeen Edmond MD - Fully Assessed Reason for Visit: Patient Question [1477] Prescriptions as of 01/25/2025 - PNV no.95/ferrous fum/folic ac ( ORAL) Take by mouth. - aspirin, enteric coated (ECOTRIN LOW STRENGTH) 81 mg EC tablet Take 1 tablet by mouth once daily. - famotidine (PEPCID) 20 mg tablet Take 1 tablet by mouth two times a day. 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/11/2024 12/05/2024 IFG (impaired fasting glucose) [R73.01] 04/11/2024 12/05/2024 Obesity affecting in second trimester*04/11/2024 Dyslipidemia [E78.5] 202312/05/2024 Vitamin D deficiency [E55.9] 2023 Supervision of high risk in second tr*09/13/2024 History of episiotomy [Z98.890] 09/13/2024 Sickle cell trait (HCC) [D57.3] 09/13/2024 Language barrier [Z60.3, Z75.8] 09/13/2024 History of gastrointestinal ulcer [Z87.19] 09/13/2024 Hiatal hernia [K44.9] 09/13/2024 History of depression [Z87.59, Z86.5*09/13/2024 Nausea and vomiting during [O21.9] 09/13/2024 11/13/2024 History of chlamydia [Z86.19] 09/13/2024 Dichorionic diamniotic twin in first *09/13/2024 Constipation during in first trimeste*09/13/2024 11/13/2024 Heartburn during in first trimester [*09/13/2024 Encounter Status:Closed by DULCE CHANG on 01/25/25 [facility] Examination level ultrasound on 01-02-2025 [facility] Radiology Study observation (narrative) [facility] CNCOon 12-05-2024 CNCO Letter Text [facility] Examination level ultrasound on 12-05-2024 Indication Detailed anatomic survey Di-Di twins Sickle cell disease, Maternal obesity, BMI >35 Impression The patient is referred for a detailed anatomic survey. - Live, dichorionic/diamniotic twin intrauterine . - biometry is consistent with the established gestational age for both fetuses. - No malformations were visualized in either fetus on detailed anatomic survey. - Normal amniotic fluid volume for both fetuses. - The placenta is anterior, fundal for Fetus A and posterior, fundal for Fetus B. - The Transabdominal cervical length measures 34.9 mm with no evidence of funneling or other dynamic changes. - Not all structural malformations can be detected by ultrasound examination. Recommendations Growth ultrasound every four weeks Maternal Assessment Height 173 cm Height (ft) 5 ft Height (in) 8 in Physical Exam Initial weight (lb) 232 lb Initial BMI 35.28 kg/m Maternal assessment other: 2 Para 1 Method Transabdominal ultrasound examination. View: Adequate visualization Twin . Number of fetuses: 2. Dichorionic-diamniotic Dating LMP on: 07/19/2024 GA by LMP 19 w + 6 d JACQUE by LMP: 04/25/2025 GA by prior assessment 19 w + 6 d JACQUE by prior assessment: 04/25/2025 Ultrasound examination on: 12/05/2024 GA by U/S based upon: AC, BPD, Femur, HC GA by U/S 19 w + 6 d JACQUE by U/S: 04/25/2025 GA by U/S based upon (Fetus 2): AC, BPD, Femur, HC GA by U/S (Fetus 2) 19 w + 6 d JACQUE by U/S (Fetus 2): 04/25/2025 Assigned: based on the LMP, selected on 09/13/2024 Assigned GA 19 w + 6 d Assigned JACQUE: 04/25/2025 Fetus A: General Evaluation Cardiac activity present. FHR 158 bpm. movements: present. Presentation: cephalic, maternal left Placenta: Placental site: anterior, fundal Umbilical cord: Cord vessels: 3 vessel cord Amniotic fluid: Amount of AF: normal amount. MVP 5.2 cm Fetus B: General Evaluation Cardiac activity present. FHR 157 bpm. movements: present. Presentation: breech, maternal right Placenta: Placental site: posterior, fundal Umbilical cord: Cord vessels: 3 vessel cord Amniotic fluid: Amount of AF: normal amount. MVP 5.8 cm Fetus A: Growth Overview Exam date GA BPD (mm) HC (mm) AC (mm) FL (mm) HL (mm) EFW (g) 12/05/2024 19w 6d 45.8 49% 168.1 37% 143.1 38% 32.9 78% 31.1 72% 315 43% Fetus B: Growth Overview Exam date GA BPD (mm) HC (mm) AC (mm) FL (mm) HL (mm) EFW (g) 12/05/2024 19w 6d 44.4 32% 166.9 34% 143.5 39% 34.1 88% 33.4 94% 325 52% Fetus A: Biometry Standard BPD 45.8 mm 19w 6d 49% Hadlock OFD 59.0 mm 19w 2d 41% Nicolaides HC 168.1 mm 19w 3d 37% Artemio Cerebellum tr 20.2 mm 19w 3d 56% Hill Nuchal fold 4.9 mm AC 143.1 mm 19w 5d 38% Hadlock Femur 32.9 mm 20w 3d 78% Artemio Humerus 31.1 mm 20w 2d 72% Artemio EFW 315 g 19w 5d 43% Hadlock EFW discordance 3.1 % EFW (lb) 0 lb EFW (oz) 11 oz EFW by: Hadlock (HC-AC-FL) Extended Gas Specialist 5.1 mm CM 3.3 mm 6% Nicolaides Extremities / Bony Struc FL / HC 0.20 93% Hadlock Other Structures FHR 158 bpm Fetus B: Biometry Standard BPD 44.4 mm 19w 3d 32% Hadlock OFD 59.2 mm 19w 2d 43% Nicolaides HC 166.9 mm 19w 2d 34% Artemio Cerebellum tr 19.3 mm 18w 5d 31% Hill Nuchal fold 2.9 mm AC 143.5 mm 19w 5d 39% Hadlock Femur 34.1 mm 20w 6d 88% Artemio Humerus 33.4 mm 21w 2d 94% Artemio EFW 325 g 19w 6d 52% Hadlock EFW discordance 3.1 % EFW (lb) 0 lb EFW (oz) 11 oz EFW by: Hadlock (HC-AC-FL) Extended Gas Specialist 6.7 mm CM 4.7 mm 40% Nicolaides Extremities / Bony Struc FL / HC 0.20 93% Hadlock Other Structures FHR 157 bpm Fetus A: Anatomy Cranium: normal Lateral ventricles: normal Choroid plexus: normal Midline falx: normal Cavum septi pellucidi: normal Cerebellum: normal Cisterna magna: normal Head / Neck Nuchal fold: normal Lips: normal Profile: normal Nose: normal Face Orbits: normal Lens: normal 4-chamber view: normal RVOT view: normal LVOT view: normal 3-vessel view: normal 3-koidqv-tibxczg view: normal Heart / Thorax Situs: situs solitus (normal) Aortic arch view: normal Bicaval view: normal SVC: normal IVC: normal Cardiac axis: normal Diaphragm: normal Cord insertion: normal Stomach: normal Kidneys: normal Bladder: normal Genitals: normal Abdomen Abdom. wall: normal Cervical spine: normal Thoracic spine: normal Lumbar spine: normal Sacral spine: normal Arms: normal Legs: normal Rt upper arm: normal Rt forearm: normal Rt hand: normal Rt fingers: normal Lt upper arm: normal Lt forearm: (more content not included)... MATERNAL MEDICINE [facility] Radiology Study observation (narrative) [facility] Kassi 10-15-2024 CNPAjnel Telephone (UCWSTR) KARISSA ARIZA ([id number]) 1990 F Date Time Provider Department 10/15/24 [facility] During your visit today, we recorded the following information about you: Caren Carreno APRN.SHARDA 10/15/2024 9:35 AM Signed Please let the patient know that her vitamin D level is low and I would like her to take 2000 units daily. Caren Carreno APRN.Chayito Yin RN 10/16/2024 8:33 AM Signed Left message for patient to call office or check [employer] message. Chayito Cedeno RN Allergies As of Date: 10/15/2024 (No Known Allergies) Date Reviewed: 10/13/2024 Reviewed by: Steve Ramirez MA - Fully Assessed Reason for Visit: Results [95] Prescriptions as of 10/16/2024 - PNV no.95/ferrous fum/folic ac ( ORAL) Take by mouth. - aspirin, enteric coated (ECOTRIN LOW STRENGTH) 81 mg EC tablet Take 1 tablet by mouth once daily. - famotidine (PEPCID) 20 mg tablet Take 1 tablet by mouth two times a day. - ondansetron (ZOFRAN) 4 mg tablet Take 1 tablet by mouth every 8 hours as needed for nausea/vomiting. 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 IFG (impaired fasting glucose) [R73.01] 04/11/2024 Obesity affecting in first trimester *04/11/2024 Dyslipidemia [E78.5] 2023 Vitamin D deficiency [E55.9] 2023 Encounter for supervision of high risk pregnanc*09/13/2024 History of episiotomy [Z98.890] 09/13/2024 History of sickle cell anemia [Z86.2] 09/13/2024 Language barrier [Z60.3, Z75.8] 09/13/2024 History of gastrointestinal ulcer [Z87.19] 09/13/2024 Hiatal hernia [K44.9] 09/13/2024 History of depression [Z87.59, Z86.5*09/13/2024 Nausea and vomiting during [O21.9] 09/13/2024 History of chlamydia [Z86.19] 09/13/2024 Dichorionic diamniotic twin in first *09/13/2024 Constipation during in first trimeste*09/13/2024 Heartburn during in first trimester [*09/13/2024 Encounter Status:Closed by CHAYITO CEDENO on 10/16/24 [facility] 25(OH)D3 SerPl-mCglynnon 2024 25-hydroxyvitamin D3 [Mass/Vol] 26.1 ng/mL Low 31.0-80.0 [facility] Comment on above: Order Comment: Speci men Type: BLOOD SPECIMENOrdering Facility: [facility] Address: [address] [place] [address] Result Comment: Clas sification of 25 [place] Vitamin D status: Deficiency/Insufficiency: < or = 30 ng/ml. Sufficiency/Optimal Levels: 31-80 ng/mL Toxicity: > 100 ng/mL. Test performed by chemiluminescent immunoassay. Performed By: #### R UBIGG, 1988-12 ####[facility] LABCLIA [id number] [place] [address] [place] CBC W Auto Differential pane l (Bld)on 10-13-2024 Basophils (Bld) [#/Vol] 0.04 10*3/uL Normal <0.11 [facility] Comment on above: Order Comment: Speci men Type: BLOOD SPECIMENOrdering Facility: [facility] Address: [address] [place] [address] Performed By: #### 5 7021-8 ####[facility] [id number] [place] [address] [place] Basophils/100 WBC (Bld) 0.6 % [facility] Comment on above: Order Comment: Speci men Type: BLOOD SPECIMENOrdering Facility: [facility] Address: [address] [place] [address] Performed By: #### 5 7021-8 ####[facility] [id number] [place] [address] [place] Differential cell count method Nom (Bld) Auto [facility] Comment on above: Order Comment: Speci men Type: BLOOD SPECIMENOrdering Facility: [facility] Address: [address] [place] [address] Performed By: #### 5 7021-8 ####[facility] SOPHIESUNITA [id number] [place] [address] [place] Eosinophils (Bld) [#/Vol] 0.04 10*3/uL Normal <0.46 [facility] Comment on above: Order Comment: Speci men Type: BLOOD SPECIMENOrdering Facility: [facility] Address: [address] [place] [address] Performed By: #### 5 7021-8 ####[facility] HOSPITALGLYNNMark Anthony [id number] [place] [address] [place] Eosinophils/100 WBC (Bld) 0.6 % [facility] Comment on above: Order Comment: Speci men Type: BLOOD SPECIMENOrdering Facility: [facility] Address: [address] [place] [address] Performed By: #### 5 7021-8 ####[facility] HOSPITALNCMark Anthony [id number] [place] [address] [place] Erythrocyte distribution width (RBC) [Ratio] 13.5 % Normal 11.5-15.0 [facility] Comment on above: Order Comment: Speci men Type: BLOOD SPECIMENOrdering Facility: [facility] Address: [address] [place] [address] Performed By: #### 5 7021-8 ####[facility] HOSPITALNCLIA [id number] [place] [address] [place] Hematocrit (Bld) [Volume fraction] 33.2 % Low 36.0-46.0 [facility] Comment on above: Order Comment: Speci men Type: BLOOD SPECIMENOrdering Facility: [facility] Address: [address] [place] [address] Performed By: #### 5 7021-8 ####[facility] HOSPITALWNCLIA [id number] [place] [address] [place] Hemoglobin (Bld) [Mass/Vol] 11.4 g/dL Low 11.5-15.5 [facility] Comment on above: Order Comment: Speci men Type: BLOOD SPECIMENOrdering Facility: [facility] Address: [address] [place] [address] Performed By: #### 5 7021-8 ####[facility] HOSPITALLIA [id number] [place] [address] [place] Immature granulocytes (Bld) [#/Vol] 10*3/uL Normal <0.10 [facility] Comment on above: Order Comment: Speci men Type: BLOOD SPECIMENOrdering Facility: [facility] Address: [address] [place] [address] Performed By: #### 5 7021-8 ####[facility] [id number] [place] [address] [place] Immature granulocytes/100 WBC (Bld) 0.3 % [facility] Comment on above: Order Comment: Speci men Type: BLOOD SPECIMENOrdering Facility: [facility] Address: [address] [place] [address] Performed By: #### 5 7021-8 ####[facility] HOSPITALLIA [id number] [place] [address] [place] Lymphocytes (Bld) [#/Vol] 1.55 10*3/uL Normal 1.00-4.00 [facility] Comment on above: Order Comment: Speci men Type: BLOOD SPECIMENOrdering Facility: [facility] Address: [address] [place] [address] Performed By: #### 5 7021-8 ####[facility]PITALNCLIA [id number] [place] [address] [place] Lymphocytes/100 WBC (Bld) 23.9 % [facility] Comment on above: Order Comment: Speci men Type: BLOOD SPECIMENOrdering Facility: [facility] Address: [address] [place] [address] Performed By: #### 5 7021-8 ####[facility]OSPITALNCGUNNISON VALLEY [facility] [id number] [place] [address] [place] MCH (RBC) [Entitic mass] 29.8 pg Normal 26.0-34.0 [facility] Comment on above: Order Comment: Speci men Type: BLOOD SPECIMENOrdering Facility: [facility] Address: [address] [place] [address] Performed By: #### 5 7021-8 ####[facility]PITALNCGUNNISON VALLEY HOSP[facility] [id number] [place] [address] [place] MCHC (RBC) [Mass/Vol] 34.3 g/dL Normal 30.5-36.0 [facility] Comment on above: Order Comment: Speci men Type: BLOOD SPECIMENOrdering Facility: [facility] Address: [address] [place] [address] Performed By: #### 5 7021-8 ####[facility] HOSPITALNCLI [id number] [place] [address] [place] MCV (RBC) [Entitic vol] 86.9 fL Normal 80.0-100.0 [facility] Comment on above: Order Comment: Speci men Type: BLOOD SPECIMENOrdering Facility: [facility] Address: [address] [place] [address] Performed By: #### 5 7021-8 ####[facility] HOSPITALNCLI [id number] [place] [address] [place] Monocytes (Bld) [#/Vol] 0.54 10*3/uL Normal <0.87 [facility] Comment on above: Order Comment: Speci men Type: BLOOD SPECIMENOrdering Facility: [facility] Address: [address] [place] [address] Performed By: #### 5 7021-8 ####[facility] HOSPITALJORGE [id number] [place] [address] [place] Monocytes/100 WBC (Bld) 8.3 % [facility] Comment on above: Order Comment: Speci men Type: BLOOD SPECIMENOrdering Facility: [facility] Address: [address] [place] [address] Performed By: #### 5 7021-8 ####[facility]OSPITALNCGUNNISON VALLEY HOSPITAL [id number] [place] [address] [place] Neutrophils (Bld) [#/Vol] 4.30 10*3/uL Normal 1.45-7.50 [facility] Comment on above: Order Comment: Speci men Type: BLOOD SPECIMENOrdering Facility: [facility] Address: [address] [place] [address] Performed By: #### 5 7021-8 ####[facility] [id number] [place] [address] [place] Neutrophils/100 WBC (Bld) 66.3 % [facility] Comment on above: Order Comment: Speci men Type: BLOOD SPECIMENOrdering Facility: [facility] Address: [address] [place] [address] Performed By: #### 5 7021-8 ####[facility] [id number] [place] [address] [place] Nucleated RBC (Bld) [#/Vol] 10*3/uL Normal <0.01 [facility] Comment on above: Order Comment: Speci men Type: BLOOD SPECIMENOrdering Facility: [facility] Address: [address] [place] [address] Performed By: #### 5 7021-8 ####[facility] SOPHIEGLADYSLIA [id number] [place] [address] [place] Nucleated RBC/100 WBC (Bld) [Ratio] 0.0 /100 WBC [facility] Comment on above: Order Comment: Speci men Type: BLOOD SPECIMENOrdering Facility: [facility] Address: [address] [place] [address] Performed By: #### 5 7021-8 ####[facility] HOSPITALJERILYNA [id number] [place] [address] [place] Platelet mean volume (Bld) [Entitic vol] 9.5 fL Normal 9.0-12.7 [facility] Comment on above: Order Comment: Speci men Type: BLOOD SPECIMENOrdering Facility: [facility] Address: [address] [place] [address] Performed By: #### 5 7021-8 ####[facility] [id number] [place] [address] [place] Platelets (Bld) [#/Vol] 320 10*3/uL Normal 150-400 [facility] Comment on above: Order Comment: Speci men Type: BLOOD SPECIMENOrdering Facility: [facility] Address: [address] [place] [address] Performed By: #### 5 7021-8 ####[facility] HOSPITALDEBIA [id number] [place] [address] [place] RBC (Bld) [#/Vol] 3.82 10*6/uL Low 3.90-5.20 [facility] Comment on above: Order Comment: Speci men Type: BLOOD SPECIMENOrdering Facility: [facility] Address: [address] [place] [address] Performed By: #### 5 7021-8 ####[facility]PITALNCLIA [id number] [place] [address] [place] WBC (Bld) [#/Vol] 6.49 10*3/uL Normal 3.70-11.00 [facility] Comment on above: Order Comment: Speci men Type: BLOOD SPECIMENOrdering Facility: [facility] Address: [address] [place] [address] Performed By: #### 5 7021-8 ####[facility] SOPHIEWGLYNNLIA [id number] [place] [address] [place] [facility] Comprehensive metabolic 2000 panelon 10-13-2024 Albumin [Mass/Vol] 3.9 g/dL Normal 3.9-4.9 [facility] Comment on above: Order Comment: Speci men Type: BLOOD SPECIMENOrdering Facility: [facility] Address: [address] [place] [address] Performed By: #### 2 4323-8 ####[facility] HOSPITALGLYNNLIA [id number] [place] [address] [place] ALP [Catalytic activity/Vol] 60 U/L Normal 34-123 [facility] Comment on above: Order Comment: Speci men Type: BLOOD SPECIMENOrdering Facility: [facility] Address: [address] [place] [address] Performed By: #### 2 4323-8 ####[facility]ITALGLYNNLIA [id number] [place] [address] [place] ALT [Catalytic activity/Vol] 9 U/L Normal 7-38 [facility] Comment on above: Order Comment: Speci men Type: BLOOD SPECIMENOrdering Facility: [facility] Address: [address] [place] [address] Performed By: #### 2 4323-8 ####[facility]ITALWNCLIA [id number] [place] [address] [place] Anion gap [Moles/Vol] 7 mmol/L Low 8-15 [facility] Comment on above: Order Comment: Speci men Type: BLOOD SPECIMENOrdering Facility: [facility] Address: [address] [place] [address] Performed By: #### 2 4323-8 ####[facility] AUDRANCLILIAN [id number] [place] [address] [place] AST [Catalytic activity/Vol] 10 U/L Low 13-35 [facility] Comment on above: Order Comment: Speci men Type: BLOOD SPECIMENOrdering Facility: [facility] Address: [address] [place] [address] Performed By: #### 2 4323-8 ####[facility] SOPHIETACOMANCLILIAN [id number] [place] [address] [place] Bilirubin [Mass/Vol] 0.5 mg/dL Normal 0.2-1.[address] [facility] Comment on above: Order Comment: Speci men Type: BLOOD SPECIMENOrdering Facility: [facility] Address: [address] [place] [address] Performed By: #### 2 4323-8 ####[facility]ITALNCLIA [id number] [place] [address] [place] Calcium [Mass/Vol] 9.1 mg/dL Normal 8.5-10.2 [facility] Comment on above: Order Comment: Speci men Type: BLOOD SPECIMENOrdering Facility: [facility] Address: [address] [place] [address] Performed By: #### 2 4323-8 ####[facility]ITALNCLIA [id number] [place] [address] [place] Chloride [Moles/Vol] 104 mmol/L Normal 98-[address] [facility] Comment on above: Order Comment: Speci men Type: BLOOD SPECIMENOrdering Facility: [facility] Address: [address] [place] [address] Performed By: #### 2 4323-8 ####[facility]ITALWNCLIA [id number] [place] [address] [place] CO2 [Moles/Vol] 22 mmol/L Normal 22-30 [facility] Comment on above: Order Comment: Speci men Type: BLOOD SPECIMENOrdering Facility: [facility] Address: [address] [place] [address] Performed By: #### 2 4323-8 ####[facility]ITALLI [id number] [place] [address] [place] Creatinine [Mass/Vol] 0.67 mg/dL Normal 0.58-0.96 [facility] Comment on above: Order Comment: Speci men Type: BLOOD SPECIMENOrdering Facility: [facility] Address: [address] [place] [address] Performed By: #### 2 4323-8 ####[facility] [id number] [place] [address] [place] Creatinine and Glomerular filtration rate.predicted panel (S/P/Bld) 118 mL/min/1.73m??? Normal >=60 [facility] Comment on above: Order Comment: Speci men Type: BLOOD SPECIMENOrdering Facility: [facility] Address: [address] [place] [address] Result Comment: Marisol mated Glomerular Filtration Rate (eGFR) is calculated using the 2020 CKD-EPI creatinine equation. This equation utilizes serum creatinine, sex, and age as parameters. The creatinine assay has traceable calibration to isotope dilution-mass spectrometry. Refer to KDIGO guidelines for clinical interpretation. In patients with unstable renal function, e.g. those with acute kidney injury, the eGFR may not accurately reflect actual GFR. Performed By: #### 2 4323-8 ####[facility]ITALNCLI [id number] [place] [address] [place] Glucose [Mass/Vol] 84 mg/dL Normal 74-99 [facility] Comment on above: Order Comment: Speci men Type: BLOOD SPECIMENOrdering Facility: [facility] Address: [address] [place] [address] Result Comment: The [place] Diabetes Association (ADA) provides guidance for cutoff values for fasting glucose and random glucose. The ADA defines fasting as no caloric intake for at least 8 hours. Fasting plasma glucose results between 100 to 125 mg/dL indicate increased risk for diabetes (prediabetes). Fasting plasma glucose results greater than or equal to 126 mg/dL meet the criteria for diagnosis of diabetes. In the absence of unequivocal hyperglycemia, results should be confirmed by repeat testing. In a patient with classic symptoms of hyperglycemia or hyperglycemic crisis, random plasma glucose results greater than or equal to 200 mg/dL meet the criteria for diagnosis of diabetes. Reference: Standards of Medical Care in Diabetes 2016, [place] Diabetes Association. Diabetes Care. 2016.39(Suppl 1). Performed By: #### 2 4323-8 ####[facility] [id number] [place] [address] [place] Potassium [Moles/Vol] 3.7 mmol/L Normal 3.7-5.1 [facility] Comment on above: Order Comment: Giovanni rosa Type: BLOOD SPECIMENOrdering Facility: [facility] Address: [address] [place] [address] Performed By: #### 2 4323-8 ####[facility]ITALLIA [id number] [place] [address] [place] Protein [Mass/Vol] 6.7 g/dL Normal 6.3-8.0 [facility] Comment on above: Order Comment: Giovanni rosa Type: BLOOD SPECIMENOrdering Facility: [facility] Address: [address] [place], [place] [id number] Performed By: #### 2 4323-8 ####[facility]ITALNCLIA [id number] [place] [address] [place] Sodium [Moles/Vol] 133 mmol/L Low 136-144 [facility] Comment on above: Order Comment: Speci men Type: BLOOD SPECIMENOrdering Facility: [facility] Address: [address] [place] [address] Performed By: #### 2 4323-8 ####[facility]PITALNCDEBIA [id number] [place] [address] [place] Urea nitrogen [Mass/Vol] 6 mg/dL Low 7-21 [facility] Comment on above: Order Comment: Speci men Type: BLOOD SPECIMENOrdering Facility: [facility] Address: [address] [place] [address] Performed By: #### 2 4323-8 ####[facility]ITALNCLIA [id number] [place] [address] [place] HBV surface Ag Ser Qlon 10-04 HBV surface Ag Ql (S) Negative Normal Negative [facility] Comment on above: Order Comment: Speci men Type: BLOOD SPECIMENOrdering Facility: [facility] Address: [address] [place] [address] Performed By: #### 5 195-3, 56370-3, 88260-5 ####[facility] LABCLIA [id number] [place] [address] [place] HCV Ab Ser Qlon 10-13-2024 HCV Ab Ql (S) Negative Normal Negative [facility] Comment on above: Order Comment: Speci men Type: BLOOD SPECIMEN Ordering Facility: [facility] Address: [address] [place] [address] Result Comment: The result suggests no evidence of active infection with Hepatitis C virus. Should recent infection be suspected, repeat testing may be considered 4-6 weeks after this draw. Performed By: #### 1 6128-1 #### [facility] CLIA [id number] [address] [place] [address] [place] HIV 1+2 Ab IA Qlon HIV 1 and 2 Ab IA.rapid Nom (S/P/Bld) Normal [facility] Comment on above: Order Comment: Speci men Type: BLOOD SPECIMENOrdering Facility: [facility] Address: [address] [place] [address] Result Comment: Test not indicated. Performed By: #### 5 195-3, 17908-5, 96518-5 ####[facility] LABCLIA [id number] [place] [address] [place] HIV 1+2 Ab+HIV1 p24 Ag IA Ql Non-Reactive Normal Nonreactive [facility] Comment on above: Order Comment: Speci men Type: BLOOD SPECIMENOrdering Facility: [facility] Address: [address] [place] [address] Performed By: #### 5 195-3, 91839-8, 85225-9 ####[facility] LABCLIA [id number] [place] [address] [place] HIV immunoassay testing algorithm interpretation (S/P/Bld) [Interp] Normal [facility] Comment on above: Order Comment: Speci men Type: BLOOD SPECIMENOrdering Facility: [facility] Address: [address] [place] [address] Result Comment: No e vidence of HIV-1 or HIV-2 infection. Should recent infection be suspected, repeat testing may be considered 2-3 weeks after this draw. [place] Rev. Code 3701.243(E): This information has been disclosed to you from confidential records protected from disclosure by state law. ???You shall make no further disclosure of this information without the specific, written, and informed release of the individual to whom it pertains or as otherwise permitted by state law. A general authorization for the release of medical or other information is not sufficient for the purpose of the release of HIV test results or diagnoses. Performed By: #### 5 195-3, 61066-1, 18836-8 ####[facility] LABCLIA [id number] [place] [id number] [place] HbA1c (Bld)on 10-13-2024 Average glucose Estimated from glycated hemoglobin (Bld) [Mass/Vol] 85 mg/dL Normal [facility] Comment on above: Order Comment: Giovanni rosa Type: BLOOD SPECIMENOrdering Facility: [facility] Address: [address] [place] [address] Result Comment: eAG: (Estimated average glucose) is a calculated value from HgbA1c and is parts counter representative of the average blood glucose level in the last 2-3 month period. Performed By: #### 5 5454-3 ####[facility] LABIA [id number] [address] OF [facility] HbA1c (Bld) [Mass fraction] 4.6 % Normal 4.3-5.6 [facility] Comment on above: Order Comment: Giovanni [facility] Type: BLOOD SPECIMENOrdering Facility: [facility] Address: [address] [place] [address] Result Comment: A he terozygous hemoglobin variant was possibly detected. Most heterozygous hemoglobin variants do not interfere with this assay. However, interpret this hemoglobin A1c result within the patient's clinical context, as the lifespan of red blood cells may be altered. If identification of a previously unidentified hemoglobin variant is clinically indicated, consider ordering the hemoglobin evaluation cascade test. [place] Diabetes Association guidelines indicate that patients with HgbA1c in the range 5.7-6.4% are at increased risk for development of diabetes, and intervention by lifestyle modification may be beneficial. HgbA1c greater or equal to 6.5% is considered diagnostic of diabetes. Performed By: #### 5 5454-3 ####[facility] LABIA [id number] [address] OF [place] RUBELLA IGG ANTIBODYon 10-13 RUBELLA IGG AB, QUAL Positive Normal Positive [facility] Comment on above: Order Comment: Giovanni shelley Type: BLOOD SPECIMENOrdering Facility: [facility] Address: [address] [place] [address] Result Comment: The result suggests recent or past exposure to Rubella virus or history of Rubella vaccination. Positive result may also be seen due to presence of passively-transferred antibodies. Please correlate with patient's history. Performed By: #### R KEYUR, 1988-12 ####[facility] LABCLIA [id number] [place] [address] [place] Reagin and Treponema pallidu m IgG and IgM [Interp]on 10-13-2024 T. pallidum IgG+IgM IA Ql (S) Non-Reactive Normal Nonreactive [facility] Comment on above: Order Comment: Speci men Type: BLOOD SPECIMENOrdering Facility: [facility] Address: [address] [place] [address] Performed By: #### 5 195-3, 74260-8, 73192-0 ####[facility] LABCLIA [id number] [place] [address] [place] Reagin+T pallidum IgG+IgM Se rPl-Impon 10-13-2024 Reagin and Treponema pallidum IgG and IgM [Interp] Cannot exclude recent Treponemal infection if specimen collected within 7-10 days after appearance of suspect lesions or 2-3 weeks after an exposure. Clinical correlation is required. Normal [facility] Comment on above: Order Comment: Speci men Type: BLOOD SPECIMENOrdering Facility: [facility] Address: [address] [place] [address] Performed By: #### 5 195-3, 67258-7, 40167-7 ####[facility] LABCLIA [id number] [place] [address] [place] TYPE + SCREEN PRENATALon ABO B Normal [facility] Comment on above: Order Comment: Speci men Type: BLOOD SPECIMEN Ordering [facility]: [facility] Address: [address] [place] [address] Performed By: #### 1 6128-1 #### [facility] CLIA [id number] [address] [place] [address] [place] Rh Nom (Bld) Positive Normal [facility] Comment on above: Order Comment: Speci men Type: BLOOD SPECIMEN Ordering Facility: [facility] Address: [address] [place] [id number] Performed By: #### 1 6128-1 #### [facility] CLIA [id number] [address] [place], [place] [address] [place] [id number] [facility] TYPE AND SCREEN EXPIRATION 10/16/2024 23:59 Normal [facility] Comment on above: Order Comment: Speci men Type: BLOOD SPECIMEN Ordering Facility: [facility] Address: [address] [place], [place] [address] Performed By: #### 1 6128-1 #### [facility] CLIA [id number] [address] [place], [place] [address] [address] CNPLauren 10-10-2024 CNPN Telephone (OBGYWM) KARISSA ARIZA ([id number]) 1990 F Date Time Provider Department 10/10/24 HIREN JORDAN OBJOSUÉ During your visit today, we recorded the following information about you: Tash Romero MA 10/10/2024 4:21 PM Addendum Pt scheduled to see SW on Wednesday, looks like she was supposed to schedule a nuchal ultrasound. LM for patient to call back to discuss if she still wants to have this done. She is a twin . 10:30 slot on 10/19/24 on hold for patient if she wishes to proceed with nuchal ultrasound. JEN Patel Jennifer, RN 10/11/2024 2:36 PM Signed Patient notified. She has not yet decided. Asked that she please let us know her decision at her appointment with SW on Wednesday. Dulce Chang RN Allergies As of Date: 10/10/2024 (No Known Allergies) Date Reviewed: 09/13/2024 Reviewed by: Yancy Rodriguez APRN.OPERATIONS ACCOUNTANT - Fully Assessed Reason for Visit: Appointment [186] Prescriptions as of 10/11/2024 - aspirin, enteric coated (ECOTRIN LOW STRENGTH) 81 mg EC tablet Take 1 tablet by mouth once daily. - famotidine (PEPCID) 20 mg tablet Take 1 tablet by mouth two times a day. - ondansetron (ZOFRAN) 4 mg tablet Take 1 tablet by mouth every 8 hours as needed for nausea/vomiting. 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 IFG (impaired fasting glucose) [R73.01] 04/11/2024 Obesity affecting in first trimester *04/11/2024 Dyslipidemia [E78.5] 2023 Vitamin D deficiency [E55.9] 2023 Encounter for supervision of high risk pregnanc*09/13/2024 History of episiotomy [Z98.890] 09/13/2024 History of sickle cell anemia [Z86.2] 09/13/2024 Language barrier [Z60.3, Z75.8] 09/13/2024 History of gastrointestinal ulcer [Z87.19] 09/13/2024 Hiatal hernia [K44.9] 09/13/2024 History of depression [Z87.59, Z86.5*09/13/2024 Nausea and vomiting during [O21.9] 09/13/2024 History of chlamydia [Z86.19] 09/13/2024 Dichorionic diamniotic twin in first *09/13/2024 Constipation during in first trimeste*09/13/2024 Heartburn during in first trimester [*09/13/2024 Encounter Status:Closed by DULCE CHANG on 10/11/24 Normal [facility] Bacteria Ur Culton Bacteria identified Cx Nom (U) ORGANISM ID: 1 10,000 -<50,000 CFU/ml Normal urogenital poncho Normal [facility] Comment on above: Performed By: #### 6 30-4 ####[facility] LABCLIA [id number] [place] [address] [place] C. trachomatis+N. gonorrhoea e DNA KIRBY+probe Ql (Unsp spec)on 09-13-2024 C. trachomatis rRNA KIRBY+probe Ql (Unsp spec) Not detected Normal Not detected [facility] Comment on above: Order Comment: Speci men Type: BLOOD SPECIMEN [facility]ing [facility]: [facility] Address: [address] [place] [address] Performed By: #### 2 276-4, 76578-9 #### [facility] CLIA [id number] [address] [place] [address] [place] N. gonorrhoeae rRNA KIRBY+probe Ql (Unsp spec) Not detected Normal Not detected [facility] Comment on above: Order Comment: Speci men Type: BLOOD SPECIMEN [facility]ing Facility: [facility] Address: [address] [place] [address] Performed By: #### 2 276-4, 52925-6 #### [facility] CLIA [id number] [address] [place] [address] [place] POC TESTBOARD OPERATOR ULTRASOUNDon 09-13-20 Indication Viability; confirm cardiac activity Impression Twin intrauterine gestation, CRL is appropriate for clinical dates, corresponding to JACQUE 04/25/25 cardiac activity is visualized in both fetuses Recommendations Follow up for NT scan if desired Method Transabdominal ultrasound examination, Transvaginal ultrasound examination. View: Adequate visualization Hill . Number of embryos: 1 Dating LMP on: 07/19/2024 GA by LMP 8 w + 0 d JACQUE by LMP: 04/25/2025 Ultrasound examination on: 09/13/2024 GA by U/S based upon: CRL GA by U/S 7 w + 4 d JACQUE by U/S: 04/28/2025 Assigned: based on the LMP, selected on 09/13/2024 Assigned GA 8 w + 0 d Assigned JACQUE: 04/25/2025 Biometry Standard FHR 162 bpm CRL 13.7 mm 7w 4d 30% Hadlock Assessment Gestational sac: visualized Location: intrauterine Yolk sac: visualized Embryo: visualized CRL 13.7 mm 7w 4d 30% Hadlock Cardiac activity: present FHR 162 bpm General Evaluation Cardiac activity present. FHR 162 bpm Performed By: Yancy Rodriguez NP Read By: Yancy Rodriguez NP MATERNAL MEDICINE [facility] Radiology Study observation (narrative) [facility] Kassi 09-11-2024 CNPN Telephone (DANIELGYWM) KARISSA ARIZA ([id number]) 1990 F Date Time Provider Department 09/11/24 YANCY RODRIGUEZ During your visit today, we recorded the following information about you: Cherry Moreno RN 09/11/2024 9:42 AM Signed Left message for patient to return phone call to complete nurse intake questions for her upcoming appointment. Patient has an appointment with Yancy Rodriguez for NOB appointment. I am here today and tomorrow am to complete if she is available Cherry Moreno RN 09/12/2024 11:39 AM Signed completed Allergies As of Date: 09/11/2024 (No Known Allergies) Date Reviewed: 04/11/2024 Reviewed by: Christy Rosas APRN.OPERATIONS ACCOUNTANT - Fully Assessed Reason for Visit: Appointment [186] Prescriptions as of 09/12/2024 - metFORMIN (GLUCOPHAGE) 500 mg tablet Take 1 tablet by mouth two times a day with meals. - ergocalciferol 50,000 unit capsule (VITAMIN D2, DRISDOL) Take 1 capsule by mouth one time a week. - tirzepatide, weight loss (ZEPBOUND) 2.5 mg/0.5 mL pen injector Inject 2.5 mg subcutaneously one time a week for 28 days, THEN 5 mg one time a week for 28 days, THEN 7.5 mg one time a week for 28 days. - buPROPion SR (WELLBUTRIN SR) 150 mg 12 hr tablet Take 1 tablet by mouth two times a day. 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/11/2024 IFG (impaired fasting glucose) [R73.01] 04/11/2024 Class 2 severe obesity with serious comorbidity*04/11/2024 Dyslipidemia [E78.5] 2023 Vitamin D deficiency [E55.9] 2023 Encounter Status:Closed by CHERRY MORENO on 09/12/24 Normal [facility] 25(OH)D3 SerPl-mCncon 2023 25-hydroxyvitamin D3 [Mass/Vol] 22.2 ng/mL Low 31.0-80.0 [facility] Comment on above: Order Comment: Speci men Type: BLOOD SPECIMEN Ordering Facility: [facility] Address: [address] [place] [address] Result Comment: Clas sification of 25 [place] Vitamin D status: Deficiency/Insufficiency: < or = 30 ng/ml. Sufficiency/Optimal Levels: 31-80 ng/mL Toxicity: > 100 ng/mL. Test performed by chemiluminescent immunoassay. Performed By: #### 2 276-4, 92000-2 #### [facility] CLIA [id number] [address] [place] [address] [place] [address] [place] 25-hydroxyvitamin D3 [Mass/V ol]on 04-11-2024 Interpretation and review of laboratory results Abnormal [facility] The reference range interval was based on an analysis of samples from healthy adults and may not pertain to children from 0-18 years old. [facility] CBC panel Auto (Bld)on 04-11 Erythrocyte distribution width (RBC) [Ratio] 12.2 % 11.5 - 15.0 % [facility] Hematocrit (Bld) [Volume fraction] 37.4 % 36.0 - 46.0 % [facility] Hemoglobin (Bld) [Mass/Vol] 12.7 g/dL 11.5 - 15.5 g/dL [facility] Interpretation and review of laboratory results Normal [facility] MCH (RBC) [Entitic mass] 29.3 pg 26.0 - 34.0 pg [facility] MCHC (RBC) [Mass/Vol] 34.0 g/dL 30.5 - 36.0 g/dL [facility] MCV (RBC) [Entitic vol] 86.2 fL 80.0 - 100.0 fL [facility] Nucleated RBC (Bld) [#/Vol] NINF [facility] Platelet mean volume (Bld) [Entitic vol] 9.8 fL 9.0 - 12.7 fL [facility] Platelets (Bld) [#/Vol] 306 10*3/uL [facility] RBC (Bld) [#/Vol] 4.34 10*6/uL 3.90 - 5.2 0 m/uL [facility] WBC (Bld) [#/Vol] 5.05 10*3/uL [facility] Erythrocyte distribution width (RBC) [Ratio] 12.2 % Normal 11.5-15.0 [facility] Comment on above: Order Comment: Giovanni rosa Type: BLOOD SPECIMENOrdering Facility: [facility] Address: [address] [place] [address] Performed By: #### 5 8410-2 ####[facility] JAYLON [facility] [id number] [place] [id number] [place] Hematocrit (Bld) [Volume fraction] 37.4 % Normal 36.0-46.0 [facility] Comment on above: Order Comment: Giovanni rosa Type: BLOOD SPECIMENOrdering Facility: [facility] Address: [address] [place] [address] Performed By: #### 5 8410-2 ####[facility] MILLANAWNCLIA [id number] [place] [address] [place] Hemoglobin (Bld) [Mass/Vol] 12.7 g/dL Normal 11.5-15.5 [facility] Comment on above: Order Comment: Speci men Type: BLOOD SPECIMENOrdering Facility: [facility] Address: [address] [place] [address] Performed By: #### 5 8410-2 ####[facility] [id number] [place] [address] [place] MCH (RBC) [Entitic mass] 29.3 pg Normal 26.0-34.0 [facility] Comment on above: Order Comment: Speci men Type: BLOOD SPECIMENOrdering Facility: [facility] Address: [address] [place] [address] Performed By: #### 5 8410-2 ####[facility]ITAL[facility]CLIA [id number] [address] [place] MCHC (RBC) [Mass/Vol] 34.0 g/dL Normal 30.5-36.0 [facility] Comment on above: Order Comment: Speci men Type: BLOOD SPECIMENOrdering Facility: [facility] Address: [address] [place] [address] Performed By: #### 5 8410-2 ####[facility]ITAL[facility]CLIA [id number] [place] [address] [place] MCV (RBC) [Entitic vol] 86.2 fL Normal 80.0-100.0 [facility] Comment on above: Order Comment: Speci men Type: BLOOD SPECIMENOrdering Facility: [facility] Address: [address] [place] [address] Performed By: #### 5 8410-2 ####[facility]ITALNCGUNN[facility] [id number] [place] [address] [place] Nucleated RBC (Bld) [#/Vol] 10*3/uL Normal <0.01 [facility] Comment on above: Order Comment: Speci men Type: BLOOD SPECIMENOrdering Facility: [facility] Address: [address] [place] [address] Performed By: #### 5 8410-2 ####[facility] [id number] [place] [address] [place] Platelet mean volume (Bld) [Entitic vol] 9.8 fL Normal 9.0-12.7 [facility] Comment on above: Order Comment: Speci men Type: BLOOD SPECIMENOrdering Facility: [facility] Address: [address] [place] [address] Performed By: #### 5 8410-2 ####[facility] [id number] [place] [address] [place] Platelets (Bld) [#/Vol] 306 10*3/uL Normal 150-400 [facility] Comment on above: Order Comment: Speci men Type: BLOOD SPECIMENOrdering Facility: [facility] Address: [address] [place] [address] Performed By: #### 5 8410-2 ####[facility]ITALLIA [id number] [place] [address] [place] RBC (Bld) [#/Vol] 4.34 10*6/uL Normal 3.90-5.20 [facility] Comment on above: Order Comment: Speci men Type: BLOOD SPECIMENOrdering Facility: [facility] Address: [address] [place] [address] Performed By: #### 5 8410-2 ####[facility]IT[facility] [id number] [place] [address] [place] WBC (Bld) [#/Vol] 5.05 10*3/uL Normal 3.70-11.00 [facility] Comment on above: Order Comment: Speci men Type: BLOOD SPECIMENOrdering Facility: [facility] Address: [address] [place] [address] Performed By: #### 5 8410-2 ####[facility] JAYLON TAMAYOGLYNNLIMark Anthony [id number] [place] [id number] [place] CNOVon 04-11-2024 CNOV Office Visit (OBGYWM ) KARISSA ARIZA ([id number]) 1990 F Date Time Provider Department 04/11/24 8:00 AM CHRISTY ROSAS During your visit today, we recorded the following information about you: Pulse Blood pressure Weight Height 76/minute 109/72 105.2 kg 1.715 m Christy Rosas APRN.OPERATIONS ACCOUNTANT 04/11/2024 7:15 PM Signed Patient Summary: Karissa Ariza is a 33 year old female with obesity who presents for an initial evaluation of overweight/obesity to treat and prevent co-morbidities and is interested in combination of behavioral and pharmacological. Motivation for seeking treatment for the disease of overweight/obesity : improve health, have another child, and increase confidence Goal weight: 180 lb Lowest recall weight: 170 lb Highest non- recall weight: 232 Patient identified barriers to weight loss: lack of exercise, food choices Weight History: She reports a family history of obesity and early adulthood weight gain. She states her weight gain is related to the following factors, including weight retention , reduced physical activity, and consumption of unhealthy foods. Difficulty losing weight? History of weight loss with regain? - Last Wt 04/11/24 : 105.2 kg (232 lb) 5% weight loss = 220 lbs, 10% weight loss = 209 lbs WEIGHT GRAPH: Diet/Nutrition overview: Awake - 0545-06 0900 - coffee with sugar B - 10 - bread or cookie S - coffee with sugar L - 1300 - leftovers or rice and beans and a little chicken S - coffee or frozen iced coffee to sip on. Sometimes meat and cheese empanada or bread with PB D - 1700 - larger portion of rice and beans and chicken/prot or fired plantain or pasta with hotdogs/ground beef/tomato sauce or chicken noodle soup or Brouillon soup - potato/carrot and greens and sometimes beef. Dessert - sometimes [place] [employer] cereal and milk S - 8-9 pm [place] [employer] cereal and milk or fried plantain with meat or pizza or chips Fluids: coffee or frozen iced coffee, regular soda, a little water Bedtime - 2330 Quality of diet: 24hr recall suggests somewhat unhealthy diet. Characterization of diet:Unstructured, unhealthy snacking, excessive cravings, evening snacking, and increased consumption of sugar sweetened beverages. Housekeeping Attendant of impaired eating habits:excessive hunger, lack of satiety, mindlessness , and stress Eating Disorder no Cravings: sugary drinks, salty crunchy foods Sleep Duration: 5 -6 hours during week/ WE 8-9 hours JESUS NO ; CPAP NO Stress Stress:yes , Cause: Work, personal Obesity Related Comorbidities: Prior Weight Loss Surgery:No PAST MEDICAL HISTORY Diagnosis Date Cervical high risk human papillomavirus (HPV) DNA test positive 01/2024 Gastroduodenal ulcer 2009 treated with Nexium, H pylori GERD (gastroesophageal reflux disease) H/O sickle cell anemia Hiatal hernia Obesity PCOS (polycystic ovarian syndrome) 2014 PAST SURGICAL HISTORY Procedure Laterality Date EGD W/O BRSH SPEC VARICIES INJ X2 INSERTION OF IUD removed 02/11/2024 FAMILY HISTORY Problem Relation Age of Onset Arthritis Mother Obesity Mother No Known Problems Father No Known Problems Sister No Known Problems Brother No Known Problems Maternal Grandmother No Known Problems Maternal Grandfather No Known Problems Paternal Grandmother No Known Problems Paternal Grandfather Social History Tobacco Use Smoking status: Never Smokeless tobacco: Never Vaping Use Vaping Use: Never used Substance Use Topics Alcohol use: Never Drug use: Never AOM Medications: none Weight Promoting Medications: none Diet/weight loss History: Past weight loss attempts? self-directed,- walking after meals, [employer] Exercise: Regular exercise: no Strength/resistance exercise:no Barriers to regular exercise? 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 Waist Circumference: 45.25 in Neck Circumference: 15.5 in GENERAL: Female in NAD. General adiposity. SKIN: acanthosis nigricans yes , Skin tags: no Hirsutism: no HEENT: PERRL, No supraclavicular adiposity. No dorsal adiposity (more content not included)... Normal [facility] 04-11-2024 [facility] Telephone (BETHEL) KARISSA ARIZA ([id number]) 1990 F Date Time Provider Department 04/11/24 CHRISTY ROSAS During your visit today, we recorded the following information about you: Inna Rodriguez LPN 04/11/2024 10:09 AM Signed Electronic PA submitted for [employer]. Will await further response from pt's insurance.NOAH May Tara, RN 04/17/2024 4:13 PM Signed [facility] called stating they will need separate scripts for each dose of the Zepbound. They are going to fill the 2.5mg dosage for 28 days, but will need new scripts for the following dosages. CHELSEA.ARNOLD Gomez Amy, APRN.CNP 04/17/2024 5:03 PM Signed Please find out what the patient's co-pay is because she was not sure if she would want to pay for it. If her co-pay is acceptable to her, I will place other prescriptions. Christy Rosas APRN.Dulce Sher RN 04/18/2024 8:55 AM Signed Left message for patient to call office. ARNOLD Duke Amanda, MA 04/25/2024 12:35 PM Signed Medication has been denied. The requested medication is covered when it is not being used concomitantly with other weight loss medications. Examples of other weight loss medications include phentermine (Lomaira, generic), benzphetamine, diethylpropion, phendimetrazine, Contrave (naltrexone/bupropion extended-release tablets), Qsymia (phentermine/topiramat e extended-release capsules), Xenical (orlistat 120 mg capsules), and Anderson (orlistat 60 mg capsules). Coverage cannot be authorized at this time. JEN Patel Amy, APRN.CNP 04/27/2024 6:41 AM Signed Bupropion is prescribed for depression and anxiety with benefit of reducing food cravings and not causing weight gain. Therefore, she is not taking any AOM. Please resubmit. LEFTY Foy Annalee, LPN 04/27/2024 4:06 PM Signed A new prior authorization for Zepbound was submitted with office notes to [facility]. Will await response. Sunita Morataya LPN 05/01/2024 4:25 PM Signed Per patient's insurance- patient must complete 3 months of behavior modification and diet restriction before zepbound can be approved. Patient stated that she is ok with trying metformin if zepbound is denied Christy Rosas APRN.CNP 05/01/2024 9:05 PM Signed [facility] message sent and metformin prescribed. Christy Rosas APRN.CNP Allergies As of Date: 04/11/2024 (No Known Allergies) Date Reviewed: 04/11/2024 Reviewed by: Christy Rosas APRN.CNP - Fully Assessed Reason for Visit: Insurance Authorization [[id number]] Primary Visit Diagnosis:PCOS (polycystic ovarian syndrome) [E28.2] Other Visit Diagnoses:IFG (impaired fasting glucose) [R73.01] Class 2 severe obesity with serious comorbidity and body mass index (BMI) of 36.0 to 36.9 in adult, unspecified obesity type (HCC) [E66.01, Z68.36] Order(s):metFORMIN (GLUCOPHAGE) 500 mg tabletTake 1 tablet by mouth two times a day with meals.Disp: 180 tabletRfl: 0 Prescriptions as of 05/01/2024 - metFORMIN (GLUCOPHAGE) 500 mg tablet Take 1 tablet by mouth two times a day with meals. - ergocalciferol 50,000 unit capsule (VITAMIN D2, DRISDOL) Take 1 capsule by mouth one time a week. - tirzepatide, weight loss (ZEPBOUND) 2.5 mg/0.5 mL pen injector Inject 2.5 mg subcutaneously one time a week for 28 days, THEN 5 mg one time a week for 28 days, THEN 7.5 mg one time a week for 28 days. - buPROPion SR (WELLBUTRIN SR) 150 mg 12 hr tablet Take 1 tablet by mouth two times a day. 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 Encounter Status:Closed by CHRISTY ROSAS on 05/01/24 Normal [facility] INSULIN ASSAY BLOODon 2023 Insulin Qn 17.0 u[IU]/mL 3.0 - 25.0 mU/L [facility] Insulin Qnon 04-11-2024 Interpretation and review of laboratory results Normal [facility] Insulin SerPl-aCncon 024 Insulin Qn 17.0 u[IU]/mL Normal 3.0-25.0 [facility] Comment on above: Order Comment: Speci men Type: BLOOD SPECIMEN [facility]ing Facility: [facility] Address: [address] [place] [address] Performed By: #### 2 276-4, 87114-7 #### [facility] CLIA [id number] [address] [place] [address] [place] Lipid 1996 panelon 4 Cholesterol [Mass/Vol] 158 mg/dL NINF - 200 mg/dL [facility] Comment on above: <200 mg/dL, Desirabl e 200-239 mg/dL, Borderline high >239 mg/dL, High Cholesterol in HDL [Mass/Vol] 39 mg/dL Low 39 - PINF mg/dL [facility] Comment on above: 40-59 mg/dL, Accepta ble >59 mg/dL, High: Negative risk factor for coronary heart disease <40 mg/dL, Low: Positive risk factor for coronary heart disease Cholesterol in LDL [Mass/Vol] 103 mg/dL High NINF - 100 mg/dL [facility] Comment on above: <100 mg/dL, Optimal 100-129 mg/dL, Near optimal/above optimal 130-159 mg/dL, Borderline high 160-189 mg/dL, High >189 mg/dL, Very high Secondary prevention optimal LDL Cholesterol levels are recommended to be < 70 mg/dL Cholesterol in LDL/Cholesterol in HDL [Mass ratio] 2.64 {ratio} High NINF - 2.54 [facility] Comment on above: Reference: 1. National Cholesterol Education Program ATP III Guideline At-A-Glance Quick Desk Reference: National Heart, Lung, and Blood [place]. National Institutes of Health. 2001: NIH Publication No. 01-3305. 2. An International Atherosclerosis Society position paper: global recommendations for the management of dyslipidemia: executive summary, Atherosclerosis. 2014: 232(2):410-413. Cholesterol in VLDL [Mass/Vol] 16 mg/dL NINF - 30 mg/dL [facility] Cholesterol non HDL [Mass/Vol] 119 mg/dL NINF - 130 mg/dL [facility] Comment on above: <130 mg/dL, Optimal 130-159 mg/dL, Near optimal/above optimal 160-189 mg/dL, Borderline high 190-219 mg/dL, High >219 mg/dL, Very high Secondary prevention optimal non HDL Cholesterol levels are recommended to be <100 mg/dL Cholesterol.total/Ch olesterol in HDL [Mass ratio] 4.05 {ratio} NINF - 5.10 [facility] Fasting Time 12 hrs [facility] Interpretation and review of laboratory results Abnormal [facility] Triglyceride [Mass/Vol] 79 mg/dL NINF - 150 mg/dL [facility] Comment on above: <150 mg/dL, Normal 150-199 mg/dL, Borderline high 200-499 mg/dL, High >499 mg/dL, Very high [facility] Cholesterol [Mass/Vol] 158 mg/dL Normal <200 [facility] Comment on above: Order Comment: Giovanni men Type: BLOOD SPECIMEN [facility]ing Facility: [facility] Address: [address] [place] [address] Result Comment: <200 mg/dL, Desirable 200-239 mg/dL, Borderline high >239 mg/dL, High Performed By: #### 2 276-4, 60461-6 #### [facility] CLIA [id number] [address] [place] [address] [place] Cholesterol in HDL [Mass/Vol] 39 mg/dL Low >39 [facility] Comment on above: Order Comment: Giovanni rosa Type: BLOOD SPECIMEN Ordering Facility: [facility] Address: [address] [place] [address] Result Comment: 40-5 9 mg/dL, Acceptable >59 mg/dL, High: Negative risk factor for coronary heart disease <40 mg/dL, Low: Positive risk factor for coronary heart disease Performed By: #### 2 276-4, 35379-2 #### [facility] CLIA [id number] [address] [place] [address] [place] Cholesterol in LDL [Mass/Vol] 103 mg/dL High <100 [facility] Comment on above: Order Comment: Giovanni rosa Type: BLOOD SPECIMEN Ordering Facility: [facility] Address: [address] [place] [address] Result Comment: <100 mg/dL, Optimal 100-129 mg/dL, Near optimal/above optimal 130-159 mg/dL, Borderline high 160-189 mg/dL, High >189 mg/dL, Very high Secondary prevention optimal LDL Cholesterol levels are recommended to be < 70 mg/dL Performed By: #### 2 276-4, 87605-3 #### [facility] CLIA [id number] [address] [place] [address] [place] Cholesterol in LDL/Cholesterol in HDL [Mass ratio] 2.64 {ratio} High <2.54 [facility] Comment on above: Order Comment: Giovanni rosa Type: BLOOD SPECIMEN Ordering Facility: [facility] Address: [address] [place] [address] Result Comment: Refe rence: 1. National Cholesterol Education Program ATP III Guideline At-A-Glance Quick Desk Reference: National Heart, Lung, and Blood [place]. National Institutes of Health. 2001: NIH Publication No. 01-3305. 2. An International Atherosclerosis Society position paper: global recommendations for the management of dyslipidemia: executive summary, Atherosclerosis. 2014: 232(2):410-413. Performed By: #### 2 276-4, 49574-8 #### [facility] CLIA [id number] [address] [place] [address] [place] Cholesterol in VLDL [Mass/Vol] 16 mg/dL Normal <30 [facility] Comment on above: Order Comment: Giovanni rosa Type: BLOOD SPECIMEN Ordering Facility: [facility] Address: [address] [place] [address] Performed By: #### 2 276-4, 51889-9 #### [facility] CLIA [id number] [address] [place] [address] [place] Cholesterol non HDL [Mass/Vol] 119 mg/dL Normal <130 [facility] Comment on above: Order Comment: Speci men Type: BLOOD SPECIMEN Ordering Facility: [facility] Address: [address] [place] [address] Result Comment: <130 mg/dL, Optimal 130-159 mg/dL, Near optimal/above optimal 160-189 mg/dL, Borderline high 190-219 mg/dL, High >219 mg/dL, Very high Secondary prevention optimal non HDL Cholesterol levels are recommended to be <100 mg/dL Performed By: #### 2 276-4, 77885-6 #### [facility] CLIA [id number] [address] [place] [address] [place] Cholesterol.total/Ch olesterol in HDL [Mass ratio] 4.05 {ratio} Normal <5.10 [facility] Comment on above: Order Comment: Speci men Type: BLOOD SPECIMEN Ordering Facility: [facility] Address: [address] [place] [address] Performed By: #### 2 276-4, 07281-3 #### [facility] CLIA [id number] [address] [place] [address] [place] FASTING TIME 12 hrs Normal [facility] Comment on above: Order Comment: Speci men Type: BLOOD SPECIMEN Ordering Facility: [facility] Address: [address] [place] [address] Performed By: #### 2 276-4, 99865-3 #### [facility] CLIA [id number] [address] [place] [address] [place] Triglyceride [Mass/Vol] 79 mg/dL Normal <150 [facility] Comment on above: Order Comment: Speci men Type: BLOOD SPECIMEN Ordering Facility: [facility] Address: [address] [place] [address] Result Comment: <150 mg/dL, Normal 150-199 mg/dL, Borderline high 200-499 mg/dL, High >499 mg/dL, Very high Performed By: #### 2 276-4, 55998-7 #### [facility] CLIA [id number] [address] [place] [address] [place] [address] [place] VITAMIN D 25 HYDROXYon 04-11 25-hydroxyvitamin D3 [Mass/Vol] 22.2 ng/mL Low 31.0 - 80.0 ng/mL [facility] Comment on above: Classification of 25 [place] Vitamin D status: Deficiency/Insufficiency: < or = 30 ng/ml. Sufficiency/Optimal Levels: 31-80 ng/mL Toxicity: > 100 ng/mL. Test performed by chemiluminescent immunoassay. Comprehensive metabolic 2000 panelon 01-13-2024 Albumin [Mass/Vol] 4.1 g/dL 3.9 - 4.9 g/dL [facility] ALP [Catalytic activity/Vol] 78 U/L 34 - 123 U/L [facility] ALT [Catalytic activity/Vol] 12 U/L 7 - 38 U/L [facility] Anion gap [Moles/Vol] 7 mmol/L Low 9 - 18 mmol/L [facility] AST [Catalytic activity/Vol] 10 U/L Low 13 - 35 U/L [facility] Bilirubin [Mass/Vol] 0.7 mg/dL 0.2 - 1.3 mg/dL [facility] Calcium [Mass/Vol] 9.5 mg/dL 8.5 - 10. 2 mg/dL [facility] Chloride [Moles/Vol] 108 mmol/L High 97 - 105 mmol/L [facility] CO2 [Moles/Vol] 25 mmol/L 22 - 30 mmol/L [facility] Creatinine [Mass/Vol] 0.82 mg/dL 0.58 - 0.96 mg/dL [facility] Estimated Glomerular Filtration Rate 97 mL/min/1.73m >=60 mL/min/1.73m [facility] Glucose [Mass/Vol] 100 mg/dL High 74 - 99 mg/dL [facility] Potassium [Moles/Vol] 4.0 mmol/L 3.7 - 5.1 mmol/L [facility] Protein [Mass/Vol] 7.2 g/dL 6.3 - 8.0 g/dL [facility] Sodium [Moles/Vol] 140 mmol/L 136 - 144 mmol/L [facility] Urea nitrogen [Mass/Vol] 10 mg/dL 7 - 21 mg/dL [facility] Chlamydia/GC KIRBY aptimaon GC BY NUC ACID Negative Normal Negative [facility] Comment on above: Result Comment: Perf ormed at: =G - [facility] [address] [place], [place] [id number] [employer] Ware[employer] Supervisor: Miriam Lerner MD, Phone: [phone] Performed By: #### L 7000.1800 ####[facility] [address] [place], [place], [id number] CHLAMY,NUC ACID Negative Normal Negative [facility] Comment on above: Performed By: #### L 7000.1800 ####[facility] [address] [place], [place], [id number] Chlamydia trachomatis rRNA d etection by probe and target amplification methodon 02-03-2022 C. trachomatis rRNA KIRBY+probe Ql (Unsp spec) Negative Negative [facility] Work Phone: Laboratory - Microbiology an d Antimicrobial susceptibilityon 02-03-2022 N. gonorrhoeae DNA KIRBY+probe Ql (Unsp spec) Negative Negative [facility] Work Phone: Comment on above: Performed at: =G - [facility] [place], [place] [id number] Director: Miriam Lerner MD, Phone: [phone] /Ham 12-04-2021 /CHELO [address] [place], [place] [address] OFFICE VISIT Date of Service: 12/04/21 MR#: [id number] Acct: [id number] Name: KARISSA PERDOMO Rep #: [id number] : 1990 Provider: CONG paulson Age/Sex: 31/F Location: [facility] Status: Signed Intake Intake Visit Reasons: Nipple pain Chief Complaint: nipple pain Accompanied by: Allergies No Known Allergies Allergy (Verified 12/09/21 15:48) : Yes Current gender identity: female [facility] Medical History (Updated 12/02/21 @ 09:[address] Mya Kim MD) Duodenal ulcer Nausea vomiting Sickle cell trait Social History current gender identity: female Smoking Status: Never smoker Pregancy History 1 Elective abortions Hx Para 1 Spontaneous abortions Hx # Term Pregnancies Ectopic pregnancies Hx # Pregnancies Multiple births # of living children 1 HPI HPI HPI: KARISSA PERDOMO, is a 31 F who presents to the office today for nipple pain with . ROS ROS Const Constitutional: Denies fever(s) or lethargy : Denies nipple discharge Skin Skin/Breast: Reports breast skin changes (milk coming in, feeling more full); Denies breast pain or nipple discharge Details: significant nipple pain with , mom has noticed some cracking to nipples, sharp pain at the start of the feed, will slightly improve as feed continues but still is uncomfortable, mom is tearful today Exam Maternal Assessment Breast Assessment Bilateral Breasts: Full Nipple Assessment Bilateral Nipples: Everted Areolar Tissue Areolar Tissue: Pliable Assessment Baby Feeding History Is your baby latching onto the breast: Yes Number of Breast Feedings in 24 hours: 8-12 Minutes per breast: First Breast: 10-20 Minutes per breast: Second Breast: 10-20 Supplements Supplement Type:: None Breast Pumping Type of Breast Pump: does not have pump Goals Breast Feeding Goals: To provide as much breastmilk as possible Exam Const General: comfortable and no acute distress Orientation: alert and oriented x3 Chest Breast inspection: normal inspection of the breasts (no redness) Breast palpation: normal palpation of the breasts (no warmth, full) Other: bilateral nipples reddened with vertical cracking to each side, no bleeding or discharge present Resp Effort Inspection: normal respiratory effort Skin General: no rashes or lesions noted Psych Appearance: grossly normal Mental Status: mental status grossly normal Affect: normal affect Assessment and Plan Assessment and Plan (1) nipple pain: Plan: Combination nipple cream ordered, patient educated on use. Can also let breastmilk airdry to nipples for healing. Provider assisted patient to get deeper latch for baby while feeding to prevent further nipple breakdown. Follow up if no improvement or for any new/worsening symptoms. Educated on all signs of infection and when to call office- patient and verbalize understanding. (2) Care and examination of lactating mother: Plan: Plan as above. Coding Level of Care Code Off vis,est,level 3 Diagnoses nipple pain O92.29 Care and examination of lactating mother Z39.1 12/09/21 1604 Date Sandy Martinez NP CONTRACTING ENGINEER-C Cosigner Signature: Date (if applicable) CC: Normal [facility] Discharge Instructionon Discharge Instruction [facility] Medical Records Department [address] [place] [address] Instructions for Home/Discharge Instructions 12/02/21 0901 MR#: [id number] Acct: [id number] Name: KARISSA PERDOMO Rep #: [id number] : 1990 31 From: Mya Kim MD PCP: Care Physician,No Primary Status:ADM IN Discharge Instructions Diet Discharge Diet: No restrictions Activity Discharge Activity: Return to Normal Activity May resume sexual activity in: 6 weeks Lifting Restrictions: 10lb Dressing / Incision Call your doctor if you observe: Fever of 101 or Higher, Using more than 1 pad per hour, Shortness of breath, Chest pain, Calf discomfort, Uncontrolled pain and - (Persistent or severe headache) Follow Up Care Please Follow Up With: Tyra Esqueda MD When: 3 weeks for telehealth follow up 6 weeks for visit Test Results: Test results from this visit will be discussed in further detail at your follow-up appointment, if applicable. Discharge Plan Admission Admit Date/Time: 11/30/21 06:20 Primary Reason for Your Visit: Vaginal delivery Attending Provider: Zaheer Quinn Primary Care Provider: Care Physician,No Primary Discharge Orders/Prescriptions Prescriptions: Continued promethazine [Promethegan] 25 MG suppository 25 mg RECTAL Q6H PRN PRN (Reason: Nausea) Qty: 6 RF: 0 esomeprazole magnesium 20 mg capsule,delayed release(DR/EC) 20 mg PO DAILY RF: 0 Referrals / Follow Up: Care Physician,No Primary [Primary Care Provider] - Disposition Disposition (needs filled in before D/C Order can be placed): Home, Self Care 12/02/21 0903 Summer Ankush Kim MD CC: No Primary Care Physician Signed Normal [facility] Absolute lymphocyte counton 11-30-2021 Lymphocytes Auto (Unsp spec) [#/Vol] 1.49 10*3/uL 0.83-4.51 [facility] Work Phone: [phone] Basophil percentageon 2021 Basophils/100 WBC (Bld) 0.3 % 0-1 [facility] Work Phone: Eosinophils/100 WBC (Bld) 0.3 % 0-5 [facility] Work Phone: Neutrophils (Bld) [#/Vol] 8.2 10*3/uL 2.0-7.7 [facility] Work Phone: Neutrophils/100 WBC (Bld) 76.0 % 47-70 [facility] Work Phone: WBC (Bld) [#/Vol] 10.8 10*3/uL 4.4-11.0 [facility] Work Phone: [phone] Blood erythrocytes count (nu mber/volume)on 11-30-2021 RBC (Bld) [#/Vol] 3.53 10*6/uL 4.2-5.4 [facility] Work Phone: [phone] Blood hemoglobin measurement (mass/volume)on 11-30-2021 Hemoglobin (Bld) [Mass/Vol] 9.0 g/dL 12.0-15.0 [facility] Work Phone: [phone] Blood lymphocytes/100 leukoc yteson 11-30-2021 Lymphocytes/100 WBC (Bld) 13.8 % 19-41 [facility] Work Phone: Blood monocytes/100 leukocyt eson 11-30-2021 Monocytes/100 WBC (Bld) 9.0 % 0-10 [facility] Work Phone: [phone] Blood platelet mean volumeon 11-30-2021 Platelet mean volume (Bld) [Entitic vol] 10.3 fL 6.2-12.0 [facility] Work Phone: [phone] CBC W/Diff, Automatedon 11-05 Absolute Lymph 1.49 X10 3/uL Normal 0.83-4.51 [facility] Comment on above: Performed By: #### L 100.0100, BTS ####[facility] [address] [place], [address] Absolute Neut 8.2 X10 3/uL High 2.0-7.7 [facility] Comment on above: Performed By: #### L 100.0100, BTS ####[facility] [address] [place], [address] Basophils/100 WBC (Bld) 0.3 % Normal 0-1 [facility] Comment on above: Performed By: #### L 100.0100, BTS ####[facility] [address] [place], [address] Eosinophils/100 WBC (Bld) 0.3 % Normal 0-5 [facility] Comment on above: Performed By: #### L 100.0100, BTS ####[facility] [address] [place], [address] Erythrocyte distribution width (RBC) [Ratio] 14.7 % High 11.6-14.6 [facility] Comment on above: Performed By: #### L 100.0100, BTS ####[facility] [address] [place], [address] Hematocrit (Bld) [Volume fraction] 27.5 % Low 37-47 [facility] Comment on above: Performed By: #### L 100.0100, BTS ####[facility] [address] [place], [address] Hemoglobin (Bld) [Mass/Vol] 9.0 g/dL Low 12.0-15.0 [facility] Comment on above: Performed By: #### L 100.0100, BTS ####[facility] [address] [place], [address] IG% 0.600 Normal 0.0-0.9 [facility] Comment on above: Result Comment: IG% - Immature Granulocytes (promyelocytes, myelocytes and metamyelocytes) > 1% indicates that a LEFT SHIFT is Present. Performed By: #### L 100.0100, BTS ####[facility] [address] [place], [address] Lymphocytes/100 WBC (Bld) 13.8 % Low 19-41 [facility] Comment on above: Performed By: #### L 100.0100, BTS ####[facility] [address] [place], [address] MCH (RBC) [Entitic mass] 25.5 pg Low 27.0-32.0 [facility] Comment on above: Performed By: #### L 100.0100, BTS ####[facility] [address] [place], [address] MCHC (RBC) [Mass/Vol] 32.7 g/dL Normal 32-36 [facility] Comment on above: Performed By: #### L 100.0100, BTS ####[facility] [address] [place], [address] MCV (RBC) [Entitic vol] 77.9 fL Low 81-99 [facility] Comment on above: Performed By: #### L 100.0100, BTS ####[facility] [address] [place], [address] Monocytes/100 WBC (Bld) 9.0 % Normal 0-10 [facility] Comment on above: Performed By: #### L 100.0100, BTS ####[facility] [address] [place], [address] Neutrophils/100 WBC (Bld) 76.0 % High 47-70 [facility] Comment on above: Performed By: #### L 100.0100, BTS ####[facility] [address] [place], [address] Nucleated RBC (Bld) [#/Vol] 0 10*3/uL Normal 0-5 [facility] Comment on above: Performed By: #### L 100.0100, BTS ####[facility] [address] [place], [address] Platelet mean volume (Bld) [Entitic vol] 10.3 fL Normal 6.2-12.0 [facility] Comment on above: Performed By: #### L 100.0100, BTS ####[facility] [address] [place], [address] Platelets (Bld) [#/Vol] 335 10*3/uL Normal 150-450 [facility] Comment on above: Performed By: #### L 100.0100, BTS ####[facility] [address] [place], [address] RBC (Bld) [#/Vol] 3.53 10*6/uL Low 4.2-5.4 [facility] Comment on above: Performed By: #### L 100.0100, BTS ####[facility] [address] [place], [place], [id number] RDW SD 41.5 fl Normal 35.1-43.9 [facility] Comment on above: Performed By: #### L 100.0100, BTS ####[facility] [address] [place], [place], [address] WBC (Bld) [#/Vol] 10.8 10*3/uL Normal 4.4-11.0 [facility] Comment on above: Performed By: #### L 100.0100, BTS ####[facility] [address] [place], [place], [id number] COVID 19 AG RAPID (RN COLLEC T)on 11-30-2021 SARS-CoV-2 (COVID-19) RNA KIRBY+probe Ql (Unsp spec) *Negative results from patients with symptom onset beyond five days should be treated as presumptive and confirmed by a molecular assay if clinically necessary. Negative results should not be used as the sole basis for treatment or for patient management. COVID 19 AG RAPID (RN COLLECT) *Positive results do not differentiate between SARS-CoV and SARS-CoV-2. If differentation of the specific SARS virus is desired an additional sample and an additional order is required. COVID 19 AG RAPID (RN COLLECT) * This test has not been FDA cleared or approved; the test has been authorized by FDA under an Emergency Use Authorization (EAU) for use by laboratories certified under CLIA that meet the requirements to perform moderate, high, or waived complexity tests. COVID 19 AG RAPID (RN COLLECT) Normal Reference Range: Negative SARS-CoV-2 (COVID 19) Negative RAPID METHOD Bin[employer]Now COVID19 Ag Card Normal [facility] Comment on above: Performed By: #### M 100.505 #### [facility] [address] [facility] [address] [place], [place], [id number] Determination of erythrocyte mean corpuscular volume (MCV)on 11-30-2021 MCV (RBC) [Entitic vol] 77.9 fL 81-99 [facility] Work Phone: Hematocrit Auto (Bld) [Volum e fraction]on 11-30-2021 Hematocrit (Bld) [Volume fraction] 27.5 % 37-47 [facility] Work Phone: Laboratory - Hematology and Cell countson 11-30-2021 Erythrocyte distribution width (RBC) [Entitic vol] 41.5 fL 35.1-43.9 [facility] Work Phone: Erythrocyte distribution width (RBC) [Ratio] 14.7 % 11.6-14.6 [facility] Work Phone: Immature granulocytes/100 WBC (Bld) 0.600 % 0.0-0.9 [facility] Work Phone: Comment on above: IG% - Immature Granu locytes (promyelocytes, myelocytes and metamyelocytes) > 1% indicates that a LEFT SHIFT is Present. MCH (RBC) [Entitic mass] 25.5 pg 27.0-32.0 [facility] Work Phone: Nucleated RBC/100 WBC (Bld) [Ratio] 0 % 0-5 [facility] Work Phone: MCHC Auto (RBC) [Mass/Vol]on 11-30-2021 MCHC (RBC) [Mass/Vol] 32.7 g/dL 32-36 [facility] Work Phone: No Panel Informationon 11-30 SARS-CoV-2 Antigen (Rapid) [facility] Work Phone: Operative Reporton 2 Operative Report [facility] Medical Records Department [address] [place] [address] Operative Report 11/30/21 1032 MR#: [id number] Acct: [id number] Name: KARISSA PERDOMO Rep #: [id number] : 1990 31 From: Zaheer Quinn MD PCP: Care Physician,No Primary Status:ADM IN Location: [place] [address]-1 Maternal Data Information Final JACQUE: 11/26/21 Gestational age: 40 weeks 4 days gestation Doctor Who Attended Delivery: Sharmin Vang Vaginal Delivery Maternal Presentation Maternal Presentation: Active Labor Operative Information Date of Procedure: 11/30/21 Pre-Operative Diagnosis: IUP Post-Operative Diagnosis: IUP Surgery / Procedure Performed: Spontaneous Vaginal Delivery Type of Anesthesia: Local with 1% Lidocaine Estimated Blood Loss: 350 cc Findings Description of Procedure: Spontaneous vaginal delivery of a viable female with Apgars of 8/9 from an occiput anterior presentation with thick meconium stained fluid and normal three-vessel placenta. Cord around the neck x1 tight. First-degree midline episiotomy extended to a second- degree midline laceration with vaginal sulcal tears of approximately 2 cm on the right and left. Repaired with 3-0 Rapide suture under local. Baby cried and move all extremities vigorously on delivery and attended by special care nursery personnel who were present for the delivery. Cord gases obtained. Sponges okay. Delivery physician: Zaheer Quinn MD. Presentation: Vertex Amniotic Membrane Rupture Type: Artificial Amniotic Fluid Description: Thick meconium Placental Delivery Description: Spontaneous Placenta Disposition: [facility] Cord Vessel Description: 3 Vessels Cord Entanglement: Around neck x 1, tight Cord Gases: ABG and VBG Infant A Gender: Female (1 minute): 8 (5 minute): 9 Post Vaginal Delivery Medications Given After Delivery: IV Pitocin Episiotomy Description: Midline and 1st degree Laceration: Midline, Vaginal Extension/lac and 2nd degree Complication Complications: None 11/30/21 1037 Cosigner Signature (if applicable): CC: Dr. Zaheer Quinn MD; No Primary Care Physician Signed Normal [facility] Platelets bldon 11-30-2021 Platelets (Bld) [#/Vol] 335 10*3/uL 150-450 [facility] Work Phone: Type AND Screenon 11-30-2021 Ab SCREEN GEL Negative Normal [facility] Comment on above: Order Comment: Labor Performed By: #### M 100.505 #### [facility] [address] [place], [place], [address] ABO and Rh group Nom (Bld) Blood group B Rh(D) positive Normal [facility] Comment on above: Order Comment: Labor Performed By: #### M 100.505 #### [facility] [address] [place], [place], [id number] Rule out Beta Strep (Grp. B) on 11-02-2021 MARY Group B Beta Streptococcus is not isolated. Normal [facility] Comment on above: Performed By: #### M 100.505 #### [facility] [address] [place], [place], [address] No Panel Informationon 10-31 Group B Streptococcus Culture Group B Beta Streptococcus is not isolated. [facility] Work Phone: Absolute lymphocyte counton 10-17-2021 Lymphocytes Auto (Unsp spec) [#/Vol] 1.66 10*3/uL 0.83-4.51 [facility] Work Phone: Basophil percentageon 2021 Basophils/100 WBC (Bld) 0.5 % 0-1 [facility] Work Phone: Bilirubin [Mass/Vol] 0.50 mg/dL 0.20-1.00 [facility] Work Phone: [phone] Comment on above: For patients on eltr ombopag therapy, use of Dimension [place] TBIL is not recommended. Chloride [Moles/Vol] 109 mmol/L 98-107 [facility] Work Phone: [phone] Eosinophils/100 WBC (Bld) 0.7 % 0-5 [facility] Work Phone: Glucose [Mass/Vol] 86 mg/dL 74-[address] [facility] Work Phone: Neutrophils (Bld) [#/Vol] 5.0 10*3/uL 2.0-7.7 [facility] Work Phone: [phone] Neutrophils/100 WBC (Bld) 66.2 % 47-70 [facility] Work Phone: [phone] Potassium [Moles/Vol] 3.8 mmol/L 3.5-5.1 [facility] Work Phone: [phone] Protein [Mass/Vol] 6.5 g/dL 6.4-8.[address] [facility] Work Phone: Sodium [Moles/Vol] 138 mmol/L 136-[address] [facility] Work Phone: WBC (Bld) [#/Vol] 7.5 10*3/uL 4.4-11.[address] [facility] Work Phone: [phone] Blood erythrocytes count (nu mber/volume)on 10-17-2021 RBC (Bld) [#/Vol] 3.18 10*6/uL 4.2-5.4 [facility] Work Phone: [phone] Blood hemoglobin measurement (mass/volume)on 10-17-2021 Hemoglobin (Bld) [Mass/Vol] 9.1 g/dL 12.0-15.0 [facility] Work Phone: Blood lymphocytes/100 leukoc yteson 10-17-2021 Lymphocytes/100 WBC (Bld) 22.2 % 19-41 [facility] Work Phone: Blood monocytes/100 leukocyt eson 10-17-2021 Monocytes/100 WBC (Bld) 9.5 % 0-10 [facility] Work Phone: Blood platelet mean volumeon 10-17-2021 Platelet mean volume (Bld) [Entitic vol] 9.8 fL 6.2-12.0 [facility] Work Phone: [phone] CBC W/Diff, Automatedon 10-04 Absolute Lymph 1.66 X10 3/uL Normal 0.83-4.51 [facility] Comment on above: Performed By: #### M 100.505 #### [facility] [address] [place], [address] Absolute Neut 5.0 X10 3/uL Normal 2.0-7.7 [facility] Comment on above: Performed By: #### M 100.505 #### [facility] [address] [place], [address] Basophils/100 WBC (Bld) 0.5 % Normal 0-1 [facility] Comment on above: Performed By: #### M 100.505 #### [facility] [address] [place], [address] Eosinophils/100 WBC (Bld) 0.7 % Normal 0-5 [facility] Comment on above: Performed By: #### M 100.505 #### [facility] [address] [place], [address] Erythrocyte distribution width (RBC) [Ratio] 12.8 % Normal 11.6-14.6 [facility] Comment on above: Performed By: #### M 100.505 #### [facility] [address] [place], [address] Hematocrit (Bld) [Volume fraction] 27.7 % Low 37-47 [facility] Comment on above: Performed By: #### M 100.505 #### [facility] [address] [place], [address] Hemoglobin (Bld) [Mass/Vol] 9.1 g/dL Low 12.0-15.0 [facility] Comment on above: Performed By: #### M 100.505 #### [facility] [address] [place], [address] IG% 0.900 Normal 0.0-0.9 [facility] Comment on above: Result Comment: IG% - Immature Granulocytes (promyelocytes, myelocytes and metamyelocytes) > 1% indicates that a LEFT SHIFT is Present. Performed By: #### M 100.505 #### [facility] [address] [place], [address] Lymphocytes/100 WBC (Bld) 22.2 % Normal 19-41 [facility] Comment on above: Performed By: #### M 100.505 #### [facility] [address] [place], [address] MCH (RBC) [Entitic mass] 28.6 pg Normal 27.0-32.0 [facility] Comment on above: Performed By: #### M 100.505 #### [facility] [address] [place], [address] MCHC (RBC) [Mass/Vol] 32.9 g/dL Normal 32-36 [facility] Comment on above: Performed By: #### M 100.505 #### [facility] [address] [place], [address] MCV (RBC) [Entitic vol] 87.1 fL Normal 81-99 [facility] Comment on above: Performed By: #### M 100.505 #### [facility] [address] [place], [address] Monocytes/100 WBC (Bld) 9.5 % Normal 0-10 [facility] Comment on above: Performed By: #### M 100.505 #### [facility] [address] [place], [address] Neutrophils/100 WBC (Bld) 66.2 % Normal 47-70 [facility] Comment on above: Performed By: #### M 100.505 #### [facility] [address] [place], [address] Nucleated RBC (Bld) [#/Vol] 0 10*3/uL Normal 0-5 [facility] Comment on above: Performed By: #### M 100.505 #### [facility] [address] [place], [address] Platelet mean volume (Bld) [Entitic vol] 9.8 fL Normal 6.2-12.0 [facility] Comment on above: Performed By: #### M 100.505 #### [facility] [address] [place], [address] Platelets (Bld) [#/Vol] 292 10*3/uL Normal 150-450 [facility] Comment on above: Performed By: #### M 100.505 #### [facility] [address] [place], [address] RBC (Bld) [#/Vol] 3.18 10*6/uL Low 4.2-5.4 [facility] Comment on above: Performed By: #### M 100.505 #### [facility] [address] [place], [address] RDW SD 40.9 fl Normal 35.1-43.9 [facility] Comment on above: Performed By: #### M 100.505 #### [facility] [address] [place], [address] WBC (Bld) [#/Vol] 7.5 10*3/uL Normal 4.4-11.[address] [facility] Comment on above: Performed By: #### M 100.505 #### [facility] [address] [place], [address] Comprehensive Metabolic Prof [facility] 10-17-2021 Albumin [Mass/Vol] 2.7 g/dL Low 3.2-5.[address] [facility] Comment on above: Performed By: #### M 100.505 #### [facility] [address] [place], [address] Albumin/Globulin [Mass ratio] 0.7 {ratio} Low 0.9-2.4 [facility] Comment on above: Performed By: #### M 100.505 #### [facility] [address] [place], [address] ALK P 104 U/L Normal 45-117 [facility] Comment on above: Performed By: #### M 100.505 #### [facility] [address] [place], [address] ALT [Catalytic activity/Vol] 26 U/L Normal 13-56 [facility] Comment on above: Performed By: #### M 100.505 #### [facility] [address] [place], [address] AST [Catalytic activity/Vol] 16 U/L Normal 15-37 [facility] Comment on above: Performed By: #### M 100.505 #### [facility] [address] [place], [address] Bilirubin [Mass/Vol] 0.50 mg/dL Normal 0.20-1.00 [facility] Comment on above: Result Comment: For patients on eltrombopag therapy, use of Dimension [place] TBIL is not recommended. Performed By: #### M 100.505 #### [facility] [address] [place], [address] BUN/CRE 7.8 RATIO Low 10-20 [facility] Comment on above: Performed By: #### M 100.505 #### [facility] [address] [place], [address] CA,Total 8.6 mg/dL Normal 8.5-10.1 [facility] Comment on above: Performed By: #### M 100.505 #### [facility] [address] [place], [address] Chloride [Moles/Vol] 109 mmol/L High 98-107 [facility] Comment on above: Performed By: #### M 100.505 #### [facility] [address] [place], [address] CO2 [Moles/Vol] 22.0 mmol/L Normal 21.0-32.0 [facility] Comment on above: Performed By: #### M 100.505 #### [facility] [address] [place], [address] Creatinine [Mass/Vol] 0.64 mg/dL Normal 0.55-1.02 [facility] Comment on above: Result Comment: The validity of the calculated GFR GFRAA in patients over 70 years has not been determined. Clinical correlation is essential. Performed By: #### M 100.505 #### [facility] [address] [place], [address] EST GFR - AA 139 mL/min Normal >60 [facility] Comment on above: Result Comment: Afri can Malaysian GFR Calc Performed By: #### M 100.505 #### [facility] [address] [place], [address] GAP 7 Normal 5-15 [facility] Comment on above: Performed By: #### M 100.505 #### [facility] [address] [place], [address] GFR/1.73 sq M.predicted among non-blacks MDRD (S/P/Bld) [Vol rate/Area] 115 mL/min/{1.73_m2} Normal >60 [facility] Comment on above: Result Comment: Non- GFR Calc Performed By: #### M 100.505 #### [facility] [address] [place], [address] Globulin (S) [Mass/Vol] 3.8 g/dL Normal 2.2-4.2 [facility] Comment on above: Performed By: #### M 100.505 #### [facility] [address] [place], [address] Glucose [Mass/Vol] 86 mg/dL Normal 74-[address] [facility] Comment on above: Performed By: #### M 100.505 #### [facility] [address] [place], [address] Potassium [Moles/Vol] 3.8 mmol/L Normal 3.5-5.1 [facility] Comment on above: Performed By: #### M 100.505 #### [facility] [address] [place], [place], [address] Sodium [Moles/Vol] 138 mmol/L Normal 136-[address] [facility] Comment on above: Performed By: #### M 100.505 #### [facility] [address] [place], [place], [address] T PROT 6.5 g/dL Normal 6.4-8.2 [facility] Comment on above: Performed By: #### M 100.505 #### [facility] [address] [place], [place], [address] Urea nitrogen [Mass/Vol] 5 mg/dL Low 7-18 [facility] Comment on above: Performed By: #### M 100.505 #### [facility] [address] [place], [place], [address] Determination of erythrocyte mean corpuscular volume (MCV)on 10-17-2021 MCV (RBC) [Entitic vol] 87.1 fL 81-99 [facility] Work Phone: Gastroenterology Visit Repor ton 10-17-2021 Gastroenterology Visit Report [facility] [address] [place] [address] OFFICE VISIT Date of Service: 10/17/21 MR#: [id number] Acct: [id number] Name: KARISSA PERDOMO Rep #: [id number] : 1990 Provider: BERNARD Silva Age/Sex: 31/F Location: [facility] [place] Status: Signed Intake Intake Visit Reasons: 1 M FU Allergies No Known Allergies Allergy (Verified 08/14/21 22:57) [facility] Medical History (Updated 10/17/21 @ 11:08 by Yasmeen Silva NP, BERNARD) Duodenal ulcer Nausea vomiting Sickle cell anemia Social History Smoking Status: Never smoker HPI HPI Details: KARISSA PERDOMO, is a 31 F who presents to the office today for one month f/u acid reflux, nausea and vomiting. She is now 34 weeks , due date is Nov 26. She feels well if she takes esomeprazole 20 mg once daily, if she doesn't take it then she gets heartburn and throws up after eating. She tried to replace it with famotidine but that med wasn't effective. No abd pain. She has again seen blood in her emesis the 2x she vomited this week. Her OB is Dr Asim Esqueda Having one BM daily, normal consistency Sickle Cell Anemia ??? Most recent hemoglobin 10.1. Accompanied by her ; he is a medical doctor (they are from [facility], so he can't practice here; he is a general practitioner) She had endoscopies in [facility], diagnosed with hiatal hernia and duodenal ulcer, she will bring records to her f/u appt post-. She and her are anxious to get her symptoms under control post---she had same GI complaints prior to , but worse now that . ROS Const Constitutional: Positive for fatigue Gastro GI: Positive for bloating, heartburn and vomiting Musc Musculoskeletal: Positive for back pain Endo Endocrine: Positive for fatigue Exam Const General: cooperative and healthy appearing Quality Reporting Tobacco Screening ([facility] 138) Smoking Status: Never smoker Assessment and Plan Assessment and Plan (1) Nausea vomiting: Status: Acute (2) Heartburn during : Status: Acute (3) Acid reflux: Status: Acute Orders: Orders: CBC W/Diff, Automated Today R11.2 Comprehensive Metabolic Profil Today R11.2 Plan: 34 wks female with ongoing heartburn and vomiting unless she takes esomeprazole 20 mg daily. Reassurance that esomeprazole is safe in and ; I double checked with CONTRACTING ENGINEER Juan, and esomeprazole is category L2 which is safe. Pt did have nausea and vomiting, and a hx of duodenal ulcer and hiatal hernia, prior to . We can reevaluate her ; we discussed likelihood of needing EGD. Check CBC and CMP today. She has sickle cell. f/u post- Coding Level of Care Code Off vis,est,level 3 Diagnoses Nausea vomiting R11.2 Heartburn during O26.899; R12 Acid reflux K21.9 10/17/21 1112 Date Yasmeen Silva NP, NP-C [place] Signature: Date (if applicable) CC: Dr. Tyra Esqueda MD Normal [facility] Hematocrit Auto (Bld) [Volum e fraction]on 10-17-2021 Hematocrit (Bld) [Volume fraction] 27.7 % 37-47 [facility] Work Phone: Laboratory - Chemistry and C hemistry - challengeon 10-17-2021 ALP [Catalytic activity/Vol] 104 U/L 45-117 [facility] Work Phone: ALT [Catalytic activity/Vol] 26 U/L 13-56 [facility] Work Phone: CO2 [Moles/Vol] 22.0 mmol/L 21.0-32.0 [facility] Work Phone: Globulin (S) [Mass/Vol] 3.8 g/dL 2.2-4.2 [facility] Work Phone: Urea nitrogen/Creatinine [Mass ratio] 7.8 mg/mg 10-20 [facility] Work Phone: Laboratory - Hematology and Cell countson 10-17-2021 Erythrocyte distribution width (RBC) [Entitic vol] 40.9 fL 35.1-43.9 [facility] Work Phone: Erythrocyte distribution width (RBC) [Ratio] 12.8 % 11.6-14.6 [facility] Work Phone: Immature granulocytes/100 WBC (Bld) 0.900 % 0.0-0.9 [facility] Work Phone: Comment on above: IG% - Immature Granu locytes (promyelocytes, myelocytes and metamyelocytes) > 1% indicates that a LEFT SHIFT is Present. MCH (RBC) [Entitic mass] 28.6 pg 27.0-32.0 [facility] Work Phone: Nucleated RBC/100 WBC (Bld) [Ratio] 0 % 0-5 [facility] Work Phone: MCHC Auto (RBC) [Mass/Vol]on 10-17-2021 MCHC (RBC) [Mass/Vol] 32.9 g/dL 32-36 [facility] Work Phone: No Panel Informationon 10-17 Estimated GFR (MDRD) Amer 139 mL/min >60 [facility] Work Phone: Comment on above: GFR Calc Estimated GFR (MDRD) Non-Af Amer 115 mL/min >60 [facility] Work Phone: Comment on above: Non- GFR Calc Platelets bldon 10-17-2021 Platelets (Bld) [#/Vol] 292 10*3/uL 150-450 [facility] Work Phone: Serum or plasma albumin carmen urement (mass/volume)on 10-17-2021 Albumin [Mass/Vol] 2.7 g/dL 3.2-5.[address] [facility] Work Phone: Serum or plasma albumin/glob ulin mass ratioon 10-17-2021 Albumin/Globulin [Mass ratio] 0.7 {ratio} 0.9-2.4 [facility] Work Phone: Serum or plasma calcium carmen urement (mass/volume)on 10-17-2021 Calcium [Mass/Vol] 8.6 mg/dL 8.5-10.[address] [facility] Work Phone: Serum or plasma creatinine m easurement (mass/volume)on 10-17-2021 Creatinine [Mass/Vol] 0.64 mg/dL 0.55-1.02 [facility] Work Phone: Comment on above: The validity of the calculated GFR & GFRAA in patients over 70 years has not been determined. Clinical correlation is essential. Serum or plasma urea nitroge n measurement (mass/volume)on 10-17-2021 Urea nitrogen [Mass/Vol] 5 mg/dL 7-18 [facility] Work Phone: Thin prep Papanicolaou smear with manual screeningon 10-17-2021 Thin prep Papanicolaou smear with manual screening 16 U/L 15-37 [facility] Work Phone: Thin prep Papanicolaou smear with manual screening 7 5-15 [facility] Work Phone: Gastroenterology Visit Repor ton 09-09-2021 Gastroenterology Visit Report [facility] [address] [place] [address] OFFICE VISIT Date of Service: 09/09/21 MR#: [id number] Acct: [id number] Name: KARISSA PERDOMO Rep #: [id number] : 1990 Provider: Vince Burnette DO Age/Sex: 31/F Location: [facility] [place] Status: Signed Intake Intake Visit Reasons: 3 WK FU Allergies No Known Allergies Allergy (Verified 08/14/21 22:57) [facility] Medical History (Updated 08/23/21 @ 00:01 by Background Malina) Nausea vomiting Sickle cell anemia Social History Smoking Status: Never smoker HPI HPI Details: KARISSA PERDOMO, is a 31 F who presents to the office today for Last visit 08/19/21 for initial evaluation of peptic ulcer disease, nausea and vomiting and sickle cell anemia. Symptoms last visit included nausea and vomiting with hematemesis, diarrhea alternating with constipation, abdominal pain, bloating, heartburn and fatigue. She is currently . Peptic ulcer disease ??? Currently taking medication to treat this. Nausea and vomiting ??? Nexium in morning and famotidine in evening. Previously visited ED where she was given a suppository and IV Nexium. Script written at that time for Nexium 40MG BID but she still got nauseous with this. Sickle Cell Anemia ??? hemoglobin has trended downward during . Most recent hemoglobin 9.2. Recommend discussing iron start with environmental science program director due to PPI inhibition of iron absorption. Feels she is doing overall well. Nausea and vomiting have resolved. She is having loose stool once a day and this is not bothering her. Some blood in her nose due to weather change and dry air. ROS Const Constitutional: Positive for weight change () ENT ENT: Positive for nosebleed/epistaxis Cardio Cardiology: Positive for shortness of breath Gastro GI: Positive for bloating and diarrhea Genitourinary-Female: Positive for urinary frequency Musc Musculoskeletal: Positive for back pain Skin Skin: Positive for dry skin Psych Psychiatric: Positive for paranoia Endo Endocrine: Positive for cold intolerance and increased thirst/drinking Exam Const General: cooperative and comfortable Nutritional Appearance: average body habitus and well nourished HENMT Head: normal to inspection Ears: hearing grossly normal bilaterally Nose: external nose normal Face and sinus: normal facial exam Mouth: oral mucosae normal Throat: posterior oropharynx normal Eyes General: appearance normal, both eyes and all related structures Neck Neck: normal visual inspection Chest Chest palpation inspection: normal inspection of the chest and normal palpation of entire chest wall Resp Effort Inspection: normal respiratory effort Auscultation: Bilateral: Clear to Auscultation Cardio Palpation: normal PMI Rate: regular rate Rhythm: regular rhythm GI Inspection: normal to inspection Auscultation: normal bowel sounds Percussion: normal to percussion Palpation: no hepatosplenomegaly Skin General: no rashes or lesions noted Neuro General: patient alert Extrem General: normal to inspection Psych Affect: normal affect Quality Reporting Tobacco Screening ([facility] 138) Smoking Status: Never smoker Assessment and Plan Assessment and Plan (1) Nausea vomiting: Status: Acute Plan - Dr. Clarke Friend, DO: She is on Nexium once a day. Patient is doing a lot better and took the famotidine for short period. She is eating better after the use of the Compazine suppositories. She is not having any side effects. She is active doing very well. she continues to gain weight. She is currently at 28 weeks. She is not having any side effects from the medicine. She will follow up in office in 6 weeks. Plan Details Other Medications: New: esomeprazole magnesium 20 mg PO DAILY 30 caps 2RF Discontinued: famotidine Discontinued Reason: Order Changed 20 mg PO DAILY 30 tabs 3RF esomeprazole magnesium (Nexium) 1 pill twice a day for 1 week and then once daily Discontinued Reason: Order Changed 20 mg PO DAILY 30 caps 0RF Coding Level of Care Code Off vis,est,level 2 Diagnoses Nausea vomiting R11.2 09/09/21 0856 Date Vince Friend DO Beulahigner Signature: Date (if applicable) CC: Normal [facility] Progress Noteon 08-25-2021 [employer] Work[employer] Authentication Interface Message Text We had the pleasure of seeing Karissa Perdomo in the Heart Clinic at the [facility] at [facility] on 08/25/2021. Mrs. Perdomo is a 31 y.o. woman who is currently at 27 2/7 weeks of gestation seen in consultation for suspected absent atrial septum at the request of Dr. Tyra Esqueda. On review of obstetric history, Mrs. Perdomo is 1 para 0 with estimated due date 11/22/2021. Past medical history was reviewed and is negative for chronic illness. Current medications are vitamins and esomeprazole. There are no known allergies. Family history was reviewed and is negative for congenital heart disease. 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 Her is a physician in [place]. Today's echocardiogram demonstrated: SUMMARY: 1. Normal echocardiogram. 2. This study is limited in evaluating minor valve abnormalities, septal defects, partial anomalous pulmonary venous connection, and aortic arch abnormalities. 3. The above findings, including the limitations, were discussed with the patient. - REASON FOR EXAM: Absent atrial septum. - STUDY AND PROCEDURE DATA: Procedure Description: Keegan Bartlett ([id number]) . Study status: Routine. Location: lab. Procedure: Transabdominal echocardiography for congenital heart disease evaluation. Patient status: Outpatient. Maternal age: 31yr. : 1. Parity: 0. Expected delivery date: 11/22/2021. Gestational age: 27wk. Trimester: 3rd trimester. - FINDINGS: DESCRIPTION One fetus is present. Normal three vessel view. The rhythm is sinus rhythm, with a heart rate of 156bpm. The position is vertex. Normal Doppler pattern of the ductus venosus, umbilical artery, and vein. Three vessel cord. ANATOMIC RELATIONSHIPS - Normal visceral situs, with left sided stomach. Left sided cardiac apex (levocardia).Normally related great vessels. VEINS AND ATRIA Atrial septum - There is a patent foramen ovale. The septum primum is thin and bows into the left atrium. There is a fasec-fv-trom shunt. Left atrium - The atrium is normal in size. Right atrium - The atrium is normal in size. Systemic veins - Inferior vena cava and superior vena cava seen entering normally into the right atrium. Pulmonary veins: There are at least 2 out of 4 pulmonary veins seen entering normally into the left atrium, with normal Doppler pattern. A-V CANAL Tricuspid valve - There is normal biphasic inflow spectral Doppler. There is no regurgitation. Mitral valve - There is normal biphasic inflow spectral Doppler. There is no regurgitation. VENTRICLES Right ventricle - The cavity size is normal. Wall thickness is normal. Systolic function is qualitatively normal. Left ventricle - The cavity size is normal. Wall thickness is normal. Systolic function is quantitatively normal. The endocardial fractional shortening (MM) is 56%. CONOTRUNCUS Aortic valve - There is no stenosis. There is no insufficiency. Pulmonic valve - There is no stenosis. There is no insufficiency. GREAT ARTERIES Aorta - Left aortic arch and normal branching pattern is demonstrated. Normal ductal arch seen. Normally related great arteries. Pulmonary arteries - The proximal branch pulmonary arteries are normal. - Main pulmonary artery: The artery is of normal size. Systemic-pulmonary shunts - Patent ductus arteriosus. Normal pulsed wave Doppler pattern. PERICARDIUM - There is no significant pericardial effusion. Impression: Following the echocardiogram, I met with Mrs. Perdomo to discuss today's findings and recommendations. I reviewed the normal cardiac anatomy, and explained that there is no evidence of significant cardiac disease in the fetus. I explained the limitations of echocardiography in general, including our inability to rule out mild valve abnormalities, smaller VSDs, and persistent patency of the ductus arteriosus or the interatrial communication after . Recommendations: Given the normal findings today, we have not made a follow up appointment for Mrs. Perdomo in the Heart Clinic. However, due to the referral concern regarding the atrial septum and the inability of echocardiography to exclude persistence of the interatrial communication, we will plan to see the baby for follow-up 1-2 weeks after delivery. Last US/ Echo: Last Echo: Initial Documentation: Follow Up Recommended: Yes Follow Up Recommendations: Pediatric Cardiology fol (more content not included)... Normal [facility] CBC W/Diff, Automatedon 11-2 0-2020 Absolute Lymph 1.58 X10 3/uL Normal 0.83-4.51 [facility] Comment on above: Performed By: #### L 100.0100 ####[facility] [address] [facility] [place], [address] Absolute Neut 6.4 X10 3/uL Normal 2.0-7.7 [facility] Comment on above: Performed By: #### L 100.0100 ####[facility] [address] [facility] [place], [address] Basophils/100 WBC (Bld) 0.5 % Normal 0-1 [facility] Comment on above: Performed By: #### L 100.0100 ####[facility] [address] [place], [address] Eosinophils/100 WBC (Bld) 0.7 % Normal 0-5 [facility] Comment on above: Performed By: #### L 100.0100 ####[facility] [address] [place], [address] Erythrocyte distribution width (RBC) [Ratio] 11.9 % Normal 11.6-14.6 [facility] Comment on above: Performed By: #### L 100.0100 ####[facility] [address] [place], [address] Hematocrit (Bld) [Volume fraction] 29.1 % Low 37-47 [facility] Comment on above: Performed By: #### L 100.0100 ####[facility] [address] [place], [address] Hemoglobin (Bld) [Mass/Vol] 10.1 g/dL Low 12.0-15.0 [facility] Comment on above: Performed By: #### L 100.0100 ####[facility] [address] [place], [address] IG% 0.600 Normal 0.0-0.9 [facility] Comment on above: Result Comment: IG% - Immature Granulocytes (promyelocytes, myelocytes and metamyelocytes) > 1% indicates that a LEFT SHIFT is Present. Performed By: #### L 100.0100 ####[facility] [address] [place], [address] Lymphocytes/100 WBC (Bld) 17.8 % Low 19-41 [facility] Comment on above: Performed By: #### L 100.0100 ####[facility] [address] [place], [address] MCH (RBC) [Entitic mass] 31.7 pg Normal 27.0-32.0 [facility] Comment on above: Performed By: #### L 100.0100 ####[facility] [address] [place], [address] MCHC (RBC) [Mass/Vol] 34.7 g/dL Normal 32-36 [facility] Comment on above: Performed By: #### L 100.0100 ####[facility] [address] [place], [address] MCV (RBC) [Entitic vol] 91.2 fL Normal 81-99 [facility] Comment on above: Performed By: #### L 100.0100 ####[facility] [address] [place], [address] Monocytes/100 WBC (Bld) 8.9 % Normal 0-10 [facility] Comment on above: Performed By: #### L 100.0100 ####[facility] [address] [place], [address] Neutrophils/100 WBC (Bld) 71.5 % High 47-70 [facility] Comment on above: Performed By: #### L 100.0100 ####[facility] [address] [place], [address] Nucleated RBC (Bld) [#/Vol] 0 10*3/uL Normal 0-5 [facility] Comment on above: Performed By: #### L 100.0100 ####[facility] [address] [place], [address] Platelet mean volume (Bld) [Entitic vol] 9.5 fL Normal 6.2-12.0 [facility] Comment on above: Performed By: #### L 100.0100 ####[facility] [address] [place], [address] Platelets (Bld) [#/Vol] 302 10*3/uL Normal 150-450 [facility] Comment on above: Performed By: #### L 100.0100 ####[facility] [address] [place], [address] RBC (Bld) [#/Vol] 3.19 10*6/uL Low 4.2-5.4 [facility] Comment on above: Performed By: #### L 100.0100 ####[facility] [address] [place], [address] RDW SD 39.9 fl Normal 35.1-43.9 [facility] Comment on above: Performed By: #### L 100.0100 ####[facility] [address] [place], [address] WBC (Bld) [#/Vol] 8.9 10*3/uL Normal 4.4-11.[address] [facility] Comment on above: Performed By: #### L 100.0100 ####[facility] [address] [place], [address] Gastroenterology Visit Repor ton 08-19-2021 Gastroenterology Visit Report [facility] [address] [place] [address] OFFICE VISIT Date of Service: 08/19/21 MR#: [id number] Acct: [id number] Name: KARISSA PERDOMO Rep #: [id number] : 1990 Provider: Vince Burnette DO Age/Sex: 31/F Location: [facility] [place] Status: Signed Intake Intake Visit Reasons: possible ulcer Allergies No Known Allergies Allergy (Verified 08/14/21 22:57) [facility] Medical History (Updated 08/19/21 @ 11:[address] Vince Burnette DO) Nausea vomiting Sickle cell anemia Social History Smoking Status: Never smoker HPI HPI Details: KARISSA PERDOMO, is a 31 F who presents to the office today for the evaluation of upper GI bleed. She has a history of nausea and vomiting prior to her becoming . She initially had problems with vomiting that started several years ago. However it returned earlier this year with nausea and vomiting and hematemesis. She is here for the evaluation of nausea, vomiting with blood, diarrhea alternating with constipation (this is the first occurrence. she was constipated last week had a suppository and this week she is having some diarrhea), abdominal pain, bloating, heartburn and fatigue. In she was diagnosed with duodenal ulcer following endoscopy and was being treated for about a year. She has noticed that she has GI distress that are dependent on food intake. Since November she has been throwing up almost every day. There has always been trace amounts of dark blood in her emesis, recently it has become much brighter. She went to the ED and another endoscopy was performed where she was told she has a hernia and found she was . Visited ED last week due to nausea and emesis where they gave her IV nexium and nexium 20mg QD. Since this visit she has not thrown up. She is currently 25 weeks . ROS Const Constitutional: Positive for fatigue Gastro GI: Positive for abdominal pain, bloating, constipation, diarrhea, heartburn, Vomiting blood/hematemesis, nausea/dyspepsia and vomiting Genitourinary-Female: Positive for urinary frequency Musc Musculoskeletal: Positive for restless legs Neuro Neurology: Positive for restless legs Psych Psychiatric: Positive for anxiety Endo Endocrine: Positive for cold intolerance, fatigue, increased thirst/drinking, increased hunger and increased urine leakage Exam Const General: cooperative and comfortable Nutritional Appearance: average body habitus and well nourished [facility] Head: normal to inspection Ears: hearing grossly normal bilaterally Nose: external nose normal Face and sinus: normal facial exam Mouth: oral mucosae normal Throat: posterior oropharynx normal Eyes General: appearance normal, both eyes and all related structures Neck Neck: normal visual inspection Chest Chest palpation inspection: normal inspection of the chest and normal palpation of entire chest wall Resp Effort Inspection: normal respiratory effort Auscultation: Bilateral: Clear to Auscultation Cardio Palpation: normal PMI Rate: regular rate Rhythm: regular rhythm GI Inspection: normal to inspection Auscultation: normal bowel sounds Percussion: normal to percussion Palpation: no hepatosplenomegaly Skin General: no rashes or lesions noted Neuro General: patient alert Extrem General: normal to inspection Psych Affect: normal affect Quality Reporting Tobacco Screening ([facility] 138) Smoking Status: Never smoker Assessment and Plan Assessment and Plan (1) Peptic ulcer disease: Status: Acute Orders: Orders: CBC W/Diff, Automated Today Plan - Dr. Clarke Friend, DO: The medicine that she is on right now should take care of any possible peptic ulcer disease that she may be experiencing. (2) Nausea vomiting: Status: Acute Plan - Dr. Clarke Friend, DO: I noticed that her albumin is lower than normal for this stage of and she has been losing weight. I think is very important that she does take something for nausea vomiting to stop her from having episodes of hematemesis and so she can tolerate food. I am okay with her taking Nexium during the day and we will add famotidine at night to hopefully break the cycle. She has been feeling a lot better since going to the emergency room and getting a rectal suppository and IV Nexium. She was written for Nexium 40 mg twice a day and she has been on 20 mg a day. However she still says that she gets nauseous without vomiting. (3) Sickle cell anemia: Status: Acute Plan - Dr. Clarke Friend, DO: Her hemoglobin has trended down as you can see in . However her hemoglobin is 9.2 and it was 11.9 prior to her having upper GI bleed. She will get a repeat CBC and I recommended that she talk to her environmental science program director r (more content not included)... Normal [facility] CBC W/Diff, Automatedon 08-04 Absolute Lymph 1.74 X10 3/uL Normal 0.83-4.51 [facility] Comment on above: Performed By: #### L 500.4050, L100.0100 #### [facility] [address] [place], [address] Absolute Neut 4.2 X10 3/uL Normal 2.0-7.7 [facility] Comment on above: Performed By: #### L 500.4050, L100.0100 #### [facility] [address] [place], [address] Basophils/100 WBC (Bld) 0.4 % Normal 0-1 [facility] Comment on above: Performed By: #### L 500.4050, L100.0100 #### [facility] [address] [place], [address] Eosinophils/100 WBC (Bld) 0.9 % Normal 0-5 [facility] Comment on above: Performed By: #### L 500.4050, L100.0100 #### [facility] [address] [place], [address] Erythrocyte distribution width (RBC) [Ratio] 11.8 % Normal 11.6-14.6 [facility] Comment on above: Performed By: #### L 500.4050, L100.0100 #### [facility] [address] [place], [address] Hematocrit (Bld) [Volume fraction] 26.6 % Low 37-47 [facility] Comment on above: Performed By: #### L 500.4050, L100.0100 #### [facility] [address] [place], [address] Hemoglobin (Bld) [Mass/Vol] 9.2 g/dL Low 12.0-15.0 [facility] Comment on above: Performed By: #### L 500.4050, L100.0100 #### [facility] [address] [place], [address] IG% 1.200 High 0.0-0.9 [facility] Comment on above: Result Comment: IG% - Immature Granulocytes (promyelocytes, myelocytes and metamyelocytes) > 1% indicates that a LEFT SHIFT is Present. Performed By: #### L 500.4050, L100.0100 #### [facility] [address] [place], [address] Lymphocytes/100 WBC (Bld) 25.4 % Normal 19-41 [facility] Comment on above: Performed By: #### L 500.4050, L100.0100 #### [facility] [address] [place], [address] MCH (RBC) [Entitic mass] 31.2 pg Normal 27.0-32.0 [facility] Comment on above: Performed By: #### L 500.4050, L100.0100 #### [facility] [address] [place], [address] MCHC (RBC) [Mass/Vol] 34.6 g/dL Normal 32-36 [facility] Comment on above: Performed By: #### L 500.4050, L100.0100 #### [facility] [address] [place], [address] MCV (RBC) [Entitic vol] 90.2 fL Normal 81-99 [facility] Comment on above: Performed By: #### L 500.4050, L100.0100 #### [facility] [address] [place], [address] Monocytes/100 WBC (Bld) 11.4 % High 0-10 [facility] Comment on above: Performed By: #### L 500.4050, L100.0100 #### [facility] [address] [place], [address] Neutrophils/100 WBC (Bld) 60.7 % Normal 47-70 [facility] Comment on above: Performed By: #### L 500.4050, L100.0100 #### [facility] [address] [place], [address] Nucleated RBC (Bld) [#/Vol] 0 10*3/uL Normal 0-5 [facility] Comment on above: Performed By: #### L 500.4050, L100.0100 #### [facility] [address] [place], [address] Platelet mean volume (Bld) [Entitic vol] 9.6 fL Normal 6.2-12.0 [facility] Comment on above: Performed By: #### L 500.4050, L100.0100 #### [facility] [address] [place], [address] Platelets (Bld) [#/Vol] 283 10*3/uL Normal 150-450 [facility] Comment on above: Performed By: #### L 500.4050, L100.0100 #### [facility] [address] [place], [address] RBC (Bld) [#/Vol] 2.95 10*6/uL Low 4.2-5.4 [facility] Comment on above: Performed By: #### L 500.4050, L100.0100 #### [facility] [address] [place], [address] RDW SD 38.4 fl Normal 35.1-43.9 [facility] Comment on above: Performed By: #### L 500.4050, L100.0100 #### [facility] [address] [place], [address] WBC (Bld) [#/Vol] 6.9 10*3/uL Normal 4.4-11.[address] [facility] Comment on above: Performed By: #### L 500.4050, L100.0100 #### [facility] [address] [place], [address] Comprehensive Metabolic Prof ilon 08-15-2021 Albumin [Mass/Vol] 2.7 g/dL Low 3.2-5.[address] [facility] Comment on above: Performed By: #### L 500.4050, L100.0100 #### [facility] [address] [place], [address] Albumin/Globulin [Mass ratio] 0.7 {ratio} Low 0.9-2.4 [facility] Comment on above: Performed By: #### L 500.4050, L100.0100 #### [facility] [address] [place], [address] ALK P 66 U/L Normal 45-117 [facility] Comment on above: Performed By: #### L 500.4050, L100.0100 #### [facility] [address] [place], [address] ALT [Catalytic activity/Vol] 46 U/L Normal 13-56 [facility] Comment on above: Performed By: #### L 500.4050, L100.0100 #### [facility] [address] [place], [address] AST [Catalytic activity/Vol] 23 U/L Normal 15-37 [facility] Comment on above: Performed By: #### L 500.4050, L100.0100 #### [facility] [address] [place], [address] Bilirubin [Mass/Vol] 0.30 mg/dL Normal 0.20-1.00 [facility] Comment on above: Result Comment: For patients on eltrombopag therapy, use of Dimension [place] TBIL is not recommended. Performed By: #### L 500.4050, L100.0100 #### [facility] [address] [place], [address] BUN/CRE 12.3 RATIO Normal 10-20 [facility] Comment on above: Performed By: #### L 500.4050, L100.0100 #### [facility] [address] [place], [address] CA,Total 8.6 mg/dL Normal 8.5-10.1 [facility] Comment on above: Performed By: #### L 500.4050, L100.0100 #### [facility] [address] [place], [address] Chloride [Moles/Vol] 107 mmol/L Normal 98-107 [facility] Comment on above: Performed By: #### L 500.4050, L100.0100 #### [facility] [address] [place], [address] CO2 [Moles/Vol] 24.0 mmol/L Normal 21.0-32.0 [facility] Comment on above: Performed By: #### L 500.4050, L100.0100 #### [facility] [address] [place], [address] Creatinine [Mass/Vol] 0.65 mg/dL Normal 0.55-1.02 [facility] Comment on above: Result Comment: The validity of the calculated GFR GFRAA in patients over 70 years has not been determined. Clinical correlation is essential. Performed By: #### L 500.4050, L100.0100 #### [facility] [address] [place], [address] ECRCL 126.50 ml/min Normal [facility] Comment on above: Performed By: #### L 500.4050, L100.0100 #### [facility] [address] [place], [address] EST GFR - AA 136 mL/min Normal >60 [facility] Comment on above: Result Comment: Afri can Malaysian GFR Calc Performed By: #### L 500.4050, L100.0100 #### [facility] [address] [place], [address] GAP 8 Normal 5-15 [facility] Comment on above: Performed By: #### L 500.4050, L100.0100 #### [facility] [address] [place], [address] GFR/1.73 sq M.predicted among non-blacks MDRD (S/P/Bld) [Vol rate/Area] 112 mL/min/{1.73_m2} Normal >60 [facility] Comment on above: Result Comment: Non- GFR Calc Performed By: #### L 500.4050, L100.0100 #### [facility] [address] [place], [address] Globulin (S) [Mass/Vol] 3.7 g/dL Normal 2.2-4.2 [facility] Comment on above: Performed By: #### L 500.4050, L100.0100 #### [facility] [address] [place], [address] Glucose [Mass/Vol] 87 mg/dL Normal 74-[address] [facility] Comment on above: Result Comment: Maday mcdaniel note revised GLUCOSE reference range effective 2017. Performed By: #### L 500.4050, L100.0100 #### [facility] [address] [place], [address] Potassium [Moles/Vol] 3.5 mmol/L Normal 3.5-5.1 [facility] Comment on above: Performed By: #### L 500.4050, L100.0100 #### [facility] [address] [place], [address] Sodium [Moles/Vol] 139 mmol/L Normal 136-[address] [facility] Comment on above: Performed By: #### L 500.4050, L100.0100 #### [facility] [address] [place], [address] T PROT 6.4 g/dL Normal 6.4-8.2 [facility] Comment on above: Performed By: #### L 500.4050, L100.0100 #### [facility] [address] [place], [address] Urea nitrogen [Mass/Vol] 8 mg/dL Normal 7-18 [facility] Comment on above: Performed By: #### L 500.4050, L100.0100 #### [facility] [address] [place], [address] Emergency Department Summary on 08-15-2021 Emergency Department Summary [facility] Medical Records Department [address] [place] [address] Emergency Department Summary 08/14/21 MR#: [id number] Acct: [id number] Name: KARISSA PERDOMO Rep #: [id number] : 1990 31 From: Shawn Jackson MD PCP: Care Physician,No Primary Status:REG ER Location: ED HPI History of Present Illness Chief Complaint: Abd Pain Informant: patient Narrative Narrative: Patient presents with vomiting with slight hematemesis and left upper quadrant pain. She is diagnosed with a duodenal ulcer about 5 or 6 years ago. It sounds like she has been on and off treatment. She started having more symptoms back in April of this year. She was having left upper quadrant pain, nausea vomiting with some blood. She had an endoscopy in April that verified an ulcer but they also found out she was at the time. It sounds like she was not started on any medications then. She has been having this problem ever since. She saw what sounds like her OB physician just recently and was prescribed ondansetron. It is not helping a lot. She has vomiting mostly at night. During the day she seems to be better. She is eating and drinking at times. She will vomit up some bright red blood on occasion. No clots. She will also vomit other times with no blood. It sounds like she is not on any meds for the ulcer specifically. Patient denies any pelvic pain. She has no pain below the umbilicus. She has no vaginal discharge or bleeding. No dysuria. Past medical history includes peptic ulcer disease Medications: Zofran No known drug allergies No recent surgeries [facility] Medical History (Updated 08/15/21 @ 00:[address] Shawn Jackson MD) Sickle cell anemia Home Medications esomeprazole magnesium [Nexium] 20 mg PO DAILY #30 cap 08/15/21 [Rx Last Taken Unknown] promethazine [Promethegan] 25 mg RECTAL Q6H PRN PRN #6 suppos. 08/15/21 [Rx Last Taken Unknown] Allergy/AdvReac Type Severity Reaction Status Date / Time No Known Allergies Allergy Verified 08/14/21 22:57 Social History Smoking Status: Never smoker ROS ROS ED Constitutional Constitutional ED: Denies chills or fever(s) ENT ENT ED: Denies rhinorrhea or sore throat Cardiovascular Cardiovascular: Denies chest pain Respiratory/Chest Respiratory/Chest: Denies cough, dyspnea or sputum Gastrointestinal Gastrointestinal: Reports abdominal pain, nausea and vomiting; Denies constipation, diarrhea or melena Genitourinary Genitourinary ED: Reports other Details: Patient currently 24 weeks . ; Denies dysuria, hematuria or urinary frequency Musculoskeletal Musculoskeletal: Denies back pain or neck pain Integumentary Denies rash Neurologic Neurologic: Denies headache(s) Endocrine Endocrinology: Denies polydipsia or polyuria Allergic/Immunologic Allergic/Immunologic ED: Denies mouth swelling or urticaria EXAM Physical Exam Const Vital Signs: 08/14/21 22:54 Temperature 97.8 F Temperature Source Temporal Pulse Rate 87 Respiratory Rate 16 Blood Pressure 115/61 Blood Pressure Mean 79 Pulse Ox 99 Oxygen Delivery Method Room Air Positive well nourished and well developed General Appearance ED: well developed and NAD; Negative for cyanotic, diaphoretic or pallor HEENT Reports dry mucous membranes Mouth ED: Yes dry mucous membranes Mouth: dry mucous membranes Eyes General Eye ED: Negative for pale conjunctiva or scleral icterus Neck no lymphadenopathy and no JVD Chest Wall inspection of chest normal Resp normal respiratory effort and clear to auscultation bilaterally Effort and Inspection: Negative for pain with movement Auscultation: Negative for rales, rhonchi or wheezes Cardio regular rate and regular rhythm GI normal to inspection, nondistended, normoactive bowel sounds, non-tender and non-distended GI Narrative: Uterus is palpable near her umbilicus. Patient has minimal if any epigastric area tenderness but no rebound or guarding. No right upper quadrant tenderness. Patient does vomit/wretch and spit out a small amount clear liquid while I am in the room. But there is no blood in it at this time. Palpation: soft Back/Spine no CVA tenderness Extremity normal to inspection General Extremety ED: Negative for edema or tenderness General Extremity: Negative for edema Neuro Sensorium / Orientation: alert Psych mental status grossly normal Skin no rashes or lesions noted and no wounds General Skin Exam: Negative for jaundice or pallor MDM MDM MDM Narrative Medical decision making narrative: Patient had hemoglobin of 9.9 couple days ago. She also is blood type positive. Patient's blood work shows a hemoglobin of 9.2. This is a slight reduction but not a significant change con (more content not included)... Normal [facility] CBC-Complete Blood Cnt No Di ffon 08-12-2021 Erythrocyte distribution width (RBC) [Ratio] 11.8 % Normal 11.6-14.6 [facility] Comment on above: Performed By: #### L 501.0250, L100.0500 ####[facility] [address] [place], [address] Hematocrit (Bld) [Volume fraction] 28.7 % Low 37-47 [facility] Comment on above: Performed By: #### L 501.0250, L100.0500 ####[facility] [address] [place], [address] Hemoglobin (Bld) [Mass/Vol] 9.9 g/dL Low 12.0-15.0 [facility] Comment on above: Performed By: #### L 501.0250, L100.0500 ####[facility] [address] [place], [address] MCH (RBC) [Entitic mass] 30.9 pg Normal 27.0-32.0 [facility] Comment on above: Performed By: #### L 501.0250, L100.0500 ####[facility] [address] [place], [address] MCHC (RBC) [Mass/Vol] 34.5 g/dL Normal 32-36 [facility] Comment on above: Performed By: #### L 501.0250, L100.0500 ####[facility] [address] [place], [address] MCV (RBC) [Entitic vol] 89.7 fL Normal 81-99 [facility] Comment on above: Performed By: #### L 501.0250, L100.0500 ####[facility] [address] [place], [address] Platelet mean volume (Bld) [Entitic vol] 9.6 fL Normal 6.2-12.0 [facility] Comment on above: Performed By: #### L 501.0250, L100.0500 ####[facility] [address] [place], [address] Platelets (Bld) [#/Vol] 297 10*3/uL Normal 150-450 [facility] Comment on above: Performed By: #### L 501.0250, L100.0500 ####[facility] [address] [place], [address] RBC (Bld) [#/Vol] 3.20 10*6/uL Low 4.2-5.4 [facility] Comment on above: Performed By: #### L 501.0250, L100.0500 ####[facility] [address] [place], [address] RDW SD 38.0 fl Normal 35.1-43.9 [facility] Comment on above: Performed By: #### L 501.0250, L100.0500 ####[facility] [address] [place], [address] WBC (Bld) [#/Vol] 7.3 10*3/uL Normal 4.4-11.[address] [facility] Comment on above: Performed By: #### L 501.0250, L100.0500 ####[facility] [address] [place], [address] Glucose Challenge Gest 1H 50 amando - GLU GEST 50g 1H 119 mg/dL Normal 70-140 [facility] Comment on above: Performed By: #### L 501.0250, L100.0500 ####[facility] [address] [place], [place], [address] Chlamydia/GC KIRBY aptimaon GC BY NUC ACID Negative Normal Negative [facility] Comment on above: Result Comment: Perf ormed at: =G - [facility] [address] [id number] Traffic Warehouse Supervisor: Miriam Lerner MD, Phone: [phone] Performed By: #### L 7000.1800 ####[facility] [address] [place], [place], [address] CHLAMY,NUC ACID Negative Normal Negative [facility] Comment on above: Performed By: #### L 7000.1800 ####[facility] [address] [place], [place], [id number] PAP IG HPV APTIMA 16/18,45on 06-19-2021 ADEQ Comment Normal . [facility] Comment on above: Order Comment: CYTOL OGY INFORMATION:- CLINICAL INFORMATION: - DATE LMP/MENOPAUSE: 02/15/21 LMP- COLLECTION VIAL: Thin Prep Vial- HIGH PRESSURE OPERATOR SOURCE: CERVICAL/ENDOCERVICAL- COLLECTION TECHNIQUE: BRUSH/SPATULASpecimen Comment: [id number] Comment: Source.............Cervix;EndocervixSpecimen Comment: LMP / Prev Treat...[id number] Comment: Other..............Specimen Comment: No. of containers..01 ThinPrep Vial Result Comment: Sati sfactory for evaluation. Endocervical and/or squamous metaplastic cells (endocervical component) are present. Performed By: #### L 7400.0280 ####[facility] [address] [place], [place], [id number] COMMENT Comment Normal . [facility] Comment on above: Order Comment: CYTOL OGY INFORMATION:- CLINICAL INFORMATION: - DATE LMP/MENOPAUSE: 02/15/21 LMP- COLLECTION VIAL: Thin Prep Vial- HIGH PRESSURE OPERATOR SOURCE: CERVICAL/ENDOCERVICAL- COLLECTION TECHNIQUE: BRUSH/SPATULASpecimen Comment: [id number] Comment: Source.............Cervix;EndocervixSpecimen Comment: LMP / Prev Treat...[id number] Comment: Other..............Specimen Comment: No. of containers..01 ThinPrep Vial Result Comment: This liquid based ThinPrep(R) pap test was screened with the use of an image guided system. Performed By: #### L 7400.0280 ####[facility] [address] [facility] [place], [address] DIAG Comment Normal . [facility] Comment on above: Order Comment: CYTOL OGY INFORMATION:- CLINICAL INFORMATION: - DATE LMP/MENOPAUSE: 02/15/21 LMP- COLLECTION VIAL: Thin Prep Vial- HIGH PRESSURE OPERATOR SOURCE: CERVICAL/ENDOCERVICAL- COLLECTION TECHNIQUE: BRUSH/SPATULASpecimen Comment: [id number] Comment: Source.............Cervix;EndocervixSpecimen Comment: LMP / Prev Treat...[id number] Comment: Other..............Specimen Comment: No. of containers..01 ThinPrep Vial Result Comment: NEGA TIVE FOR INTRAEPITHELIAL LESION OR MALIGNANCY. Performed By: #### L 7400.0280 ####[facility] [address] [facility] [place], [address] HPV APTIMA, HR Negative Normal Negative [facility] Comment on above: Order Comment: CYTOL OGY INFORMATION:- CLINICAL INFORMATION: - DATE LMP/MENOPAUSE: 02/15/21 LMP- COLLECTION VIAL: Thin Prep Vial- HIGH PRESSURE OPERATOR SOURCE: CERVICAL/ENDOCERVICAL- COLLECTION TECHNIQUE: BRUSH/SPATULASpecimen Comment: [id number] Comment: Source.............Cervix;EndocervixSpecimen Comment: LMP / Prev Treat...[id number] Comment: Other..............Specimen Comment: No. of containers..01 ThinPrep Vial Result Comment: This nucleic acid amplification test detects fourteen high- risk HPV types (16,18,31,33,35,39,45,51,52,56,58,59,66,68) without differentiation. Performed at: - [facility] [id number] Traffic Warehouse Supervisor: Miriam Lerner MD, Phone: [phone] Performed at: = - [facility] [id number] Traffic Warehouse Supervisor: Miriam Lerner MD, Phone: [phone] Performed By: #### L 7400.0280 ####[facility] [address] [place], [place], [id number] PAPSMR Comment Normal . [facility] Comment on above: Order Comment: CYTOL OGY INFORMATION:- CLINICAL INFORMATION: - DATE LMP/MENOPAUSE: 02/15/21 LMP- COLLECTION VIAL: Thin Prep Vial- HIGH PRESSURE OPERATOR SOURCE: CERVICAL/ENDOCERVICAL- COLLECTION TECHNIQUE: BRUSH/SPATULASpecimen Comment: [id number] Comment: Source.............Cervix;EndocervixSpecimen Comment: LMP / Prev Treat...[id number] Comment: Other..............Specimen Comment: No. of containers..01 ThinPrep Vial Result Comment: The Pap smear is a screening test designed to aid in the detection of premalignant and malignant conditions of the uterine cervix. It is not a diagnostic procedure and should not be used as the sole means of detecting cervical cancer. Both false-positive and false-negative reports do occur. Performed By: #### L 7400.0280 ####[facility] [address] [place], [place], [address] PERFORM Comment Normal . [facility] Comment on above: Order Comment: CYTOL OGY INFORMATION:- CLINICAL INFORMATION: - DATE LMP/MENOPAUSE: 02/15/21 LMP- COLLECTION VIAL: Thin Prep Vial- HIGH PRESSURE OPERATOR SOURCE: CERVICAL/ENDOCERVICAL- COLLECTION TECHNIQUE: BRUSH/SPATULASpecimen Comment: [id number] Comment: Source.............Cervix;EndocervixSpecimen Comment: LMP / Prev Treat...[id number] Comment: Other..............Specimen Comment: No. of containers..01 ThinPrep Vial Result Comment: Aurelia Santos, Pleasure Craft Sailor (ASCP) Performed By: #### L 7400.0280 ####[facility] [address] [place], [place], [address] COMM . Normal . [facility] Comment on above: Order Comment: CYTOL OGY INFORMATION:- CLINICAL INFORMATION: - DATE LMP/MENOPAUSE: 02/15/21 LMP- COLLECTION VIAL: Thin Prep Vial- HIGH PRESSURE OPERATOR SOURCE: CERVICAL/ENDOCERVICAL- COLLECTION TECHNIQUE: BRUSH/SPATULASpecimen Comment: [id number] Comment: Source.............Cervix;EndocervixSpecimen Comment: LMP / Prev Treat...[id number]=[id number] Comment: Other..............Specimen Comment: No. of containers..01 ThinPrep Vial Performed By: #### L 7400.0280 ####[facility] [address] [place], [place], [id number] Urine Cultureon 06-19-2021 URC Below infection leve l. Mixed Gram Pos Gram Neg Org [place] Count 1000-10,000 Normal [facility] Comment on above: Performed By: #### L 509.4005, L3890.6300, BPNTSNC, M100.2200, L3890.6005, L509.8000, L3890.6100, L100.0100 ####[facility] [address] [place], [address] CBC W/Diff, Automatedon 06-04 Absolute Lymph 1.54 X10 3/uL Normal 0.83-4.51 [facility] Comment on above: Performed By: #### L 509.4005, L3890.6300, BPNTSNC, M100.2200, L3890.6005, L509.8000, L3890.6100, L100.0100 #### [facility] [address] [place], [address] Absolute Neut 3.9 X10 3/uL Normal 2.0-7.7 [facility] Comment on above: Performed By: #### L 509.4005, L3890.6300, BPNTSNC, M100.2200, L3890.6005, L509.8000, L3890.6100, L100.0100 #### [facility] [address] [place], [address] Basophils/100 WBC (Bld) 0.7 % Normal 0-1 [facility] Comment on above: Performed By: #### L 509.4005, L3890.6300, BPNTSNC, M100.2200, L3890.6005, L509.8000, L3890.6100, L100.0100 #### [facility] [address] [place], [address] Eosinophils/100 WBC (Bld) 0.8 % Normal 0-5 [facility] Comment on above: Performed By: #### L 509.4005, L3890.6300, BPNTSNC, M100.2200, L3890.6005, L509.8000, L3890.6100, L100.0100 #### [facility] [address] [place], [address] Erythrocyte distribution width (RBC) [Ratio] 13.3 % Normal 11.6-14.6 [facility] Comment on above: Performed By: #### L 509.4005, L3890.6300, BPNTSNC, M100.2200, L3890.6005, L509.8000, L3890.6100, L100.0100 #### [facility] [address] [place], [address] Hematocrit (Bld) [Volume fraction] 32.3 % Low 37-47 [facility] Comment on above: Performed By: #### L 509.4005, L3890.6300, BPNTSNC, M100.2200, L3890.6005, L509.8000, L3890.6100, L100.0100 #### [facility] [address] [place], [address] Hemoglobin (Bld) [Mass/Vol] 11.2 g/dL Low 12.0-15.0 [facility] Comment on above: Performed By: #### L 509.4005, L3890.6300, BPNTSNC, M100.2200, L3890.6005, L509.8000, L3890.6100, L100.0100 #### [facility] [address] [place], [address] IG% 0.300 Normal 0.0-0.9 [facility] Comment on above: Result Comment: IG% - Immature Granulocytes (promyelocytes, myelocytes and metamyelocytes) > 1% indicates that a LEFT SHIFT is Present. Performed By: #### L 509.4005, L3890.6300, BPNTSNC, M100.2200, L3890.6005, L509.8000, L3890.6100, L100.0100 #### [facility] [address] [place], [address] Lymphocytes/100 WBC (Bld) 25.0 % Normal 19-41 [facility] Comment on above: Performed By: #### L 509.4005, L3890.6300, BPNTSNC, M100.2200, L3890.6005, L509.8000, L3890.6100, L100.0100 #### [facility] [address] [place], [address] MCH (RBC) [Entitic mass] 31.1 pg Normal 27.0-32.0 [facility] Comment on above: Performed By: #### L 509.4005, L3890.6300, BPNTSNC, M100.2200, L3890.6005, L509.8000, L3890.6100, L100.0100 #### [facility] [address] [place], [address] MCHC (RBC) [Mass/Vol] 34.7 g/dL Normal 32-36 [facility] Comment on above: Performed By: #### L 509.4005, L3890.6300, BPNTSNC, M100.2200, L3890.6005, L509.8000, L3890.6100, L100.0100 #### [facility] [address] [place], [address] MCV (RBC) [Entitic vol] 89.7 fL Normal 81-99 [facility] Comment on above: Performed By: #### L 509.4005, L3890.6300, BPNTSNC, M100.2200, L3890.6005, L509.8000, L3890.6100, L100.0100 #### [facility] [address] [place], [address] Monocytes/100 WBC (Bld) 9.4 % Normal 0-10 [facility] Comment on above: Performed By: #### L 509.4005, L3890.6300, BPNTSNC, M100.2200, L3890.6005, L509.8000, L3890.6100, L100.0100 #### [facility] [address] [place], [address] Neutrophils/100 WBC (Bld) 63.8 % Normal 47-70 [facility] Comment on above: Performed By: #### L 509.4005, L3890.6300, BPNTSNC, M100.2200, L3890.6005, L509.8000, L3890.6100, L100.0100 #### [facility] [address] [place], [address] Nucleated RBC (Bld) [#/Vol] 0 10*3/uL Normal 0-5 [facility] Comment on above: Performed By: #### L 509.4005, L3890.6300, BPNTSNC, M100.2200, L3890.6005, L509.8000, L3890.6100, L100.0100 #### [facility] [address] [place], [address] Platelet mean volume (Bld) [Entitic vol] 10.3 fL Normal 6.2-12.0 [facility] Comment on above: Performed By: #### L 509.4005, L3890.6300, BPNTSNC, M100.2200, L3890.6005, L509.8000, L3890.6100, L100.0100 #### [facility] [address] [place], [address] Platelets (Bld) [#/Vol] 319 10*3/uL Normal 150-450 [facility] Comment on above: Performed By: #### L 509.4005, L3890.6300, BPNTSNC, M100.2200, L3890.6005, L509.8000, L3890.6100, L100.0100 #### [facility] [address] [place], [address] RBC (Bld) [#/Vol] 3.60 10*6/uL Low 4.2-5.4 [facility] Comment on above: Performed By: #### L 509.4005, L3890.6300, BPNTSNC, M100.2200, L3890.6005, L509.8000, L3890.6100, L100.0100 #### [facility] [address] [place], [address] RDW SD 43.9 fl Normal 35.1-43.9 [facility] Comment on above: Performed By: #### L 509.4005, L3890.6300, BPNTSNC, M100.2200, L3890.6005, L509.8000, L3890.6100, L100.0100 #### [facility] [address] [place], [address] WBC (Bld) [#/Vol] 6.2 10*3/uL Normal 4.4-11.[address] [facility] Comment on above: Performed By: #### L 509.4005, L3890.6300, BPNTSNC, M100.2200, L3890.6005, L509.8000, L3890.6100, L100.0100 #### [facility] [address] [place], [address] HIV - WCHon 06-17-2021 HIV Non-Reactive Normal Nonreactive [facility] Comment on above: Performed By: #### L 509.4005, L3890.6300, BPNTSNC, M100.2200, L3890.6005, L509.8000, L3890.6100, L100.0100 #### [facility] [address] [place], [address] Hepatitis B Surface Antigeno n 06-17-2021 HEP B Surf Ag Non-Reactive Normal Nonreactive [facility] Comment on above: Performed By: #### L 509.4005, L3890.6300, BPNTSNC, M100.2200, L3890.6005, L509.8000, L3890.6100, L100.0100 #### [facility] [address] [place], [place], [id number] Hepatitis C Antibodyon 06-17 Hepatitis C Ab Non-Reactive Normal Nonreactive [facility] Comment on above: Result Comment: Non Reactive: < 0.8 Equivocal: >/= 0.8 to < 1.0 Reactive: >/= 1.0 The [facility] recommends that a reactive/equivocal HCV antibody result be followed up by the HCV Nucleic Acid Amplification test (853400) Performed By: #### L 509.4005, L3890.6300, BPNTSNC, M100.2200, L3890.6005, L509.8000, L3890.6100, L100.0100 ####[facility] [address] [place], [address] L509.8000on 06-17-2021 Syphilis Abs Non-Reactive Normal [facility] Comment on above: Performed By: #### L 509.4005, L3890.6300, BPNTSNC, M100.2200, L3890.6005, L509.8000, L3890.6100, L100.0100 #### [facility] [address], [address] T AND S-No Charge w /PNPon 06-17-2021 Ab SCREEN GEL Negative Normal [facility] Comment on above: Order Comment: PNN Performed By: #### L 509.4005, L3890.6300, BPNTSNC, M100.2200, L3890.6005, L509.8000, L3890.6100, L100.0100 ####[facility] [address] [place], [address] ABO and Rh group Nom (Bld) Blood group B Rh(D) positive Normal [facility] Comment on above: Order Comment: PNN Performed By: #### L 509.4005, L3890.6300, BPNTSNC, M100.2200, L3890.6005, L509.8000, L3890.6100, L100.0100 ####[facility] [address] [place], [place], [address] Rubella IgGon 06-17-2021 Rubella IgG Reactive Normal Nonreactive [facility] Comment on above: Result Comment: Anti body Results Interpretation of Immune Status Non Reactive Presumed Non-Immune Equivocal Equivocal Reactive Presumed Immune Performed By: #### L 509.4005, L3890.6300, BPNTSNC, M100.2200, L3890.6005, L509.8000, L3890.6100, L100.0100 #### [facility] [address] [place], [place], [id number] Vital Signs Date Time Vital Sign Value Performing Clinician Faci lity 04-05-2025 09:30-0400 Body mass index (BMI) [Ratio] 37.94 kg/m2 Dulce Milner MD Work Phone: [facility] 04-05-2025 09:30-0400 Body weight 111.58 kg Dulce Milner MD Work Phone: [facility] 04-05-2025 09:30-0400 Diastolic blood pressure 71 mm[Hg] Dulce Milner MD Work Phone: [facility] 04-05-2025 09:30-0400 Systolic blood pressure 121 mm[Hg] Dulce Milner MD Work Phone: [facility] 03-27-2025 10:47-0400 Body mass index (BMI) [Ratio] 37.94 kg/m2 Fern Mary MD Work Phone: [facility] 03-27-2025 10:47-0400 Body weight 111.58 kg Fern Mary MD Work Phone: [facility] 03-27-2025 10:47-0400 Diastolic blood pressure 64 mm[Hg] Fern Mary MD Work Phone: [facility] 03-27-2025 10:47-0400 Systolic blood pressure 110 mm[Hg] Fern Mary MD Work Phone: [facility] 03-13-2025 08:13-0400 Body mass index (BMI) [Ratio] 37.48 kg/m2 Janeen Plotts DIGESTER HAND.CNM Work Phone: [facility] 03-13-2025 08:13-0400 Body weight 110.22 kg Janeen Plotts DIGESTER HAND.CNM Work Phone: [facility] 03-13-2025 08:13-0400 Diastolic blood pressure 68 mm[Hg] Janeen Plotts DIGESTER HAND.CNM Work Phone: [facility] 03-13-2025 08:13-0400 Systolic blood pressure 112 mm[Hg] Janeen Plotts DIGESTER HAND.CNM Work Phone: [facility] 03-02-2025 09:00-0400 Body mass index (BMI) [Ratio] 37.63 kg/m2 Marisol Anaya MD Work Phone: [facility] 03-02-2025 09:00-0400 Body weight 110.68 kg Marisol Anaya MD Work Phone: [facility] 03-02-2025 09:00-0400 Diastolic blood pressure 60 mm[Hg] Marisol Anaya MD Work Phone: [facility] 03-02-2025 09:00-0400 Systolic blood pressure 112 mm[Hg] Marisol Anaya MD Work Phone: [facility] 02-13-2025 09:01-0400 Body mass index (BMI) [Ratio] 37.35 kg/m2 Fern Mary MD Work Phone: [facility] 02-13-2025 09:01-0400 Body weight 109.86 kg Fern Mary MD Work Phone: [facility] 02-13-2025 09:01-0400 Diastolic blood pressure 60 mm[Hg] Fern Mary MD Work Phone: [facility] 02-13-2025 09:01-0400 Systolic blood pressure 110 mm[Hg] Fern Mayr MD Work Phone: [facility] 01-30-2025 08:40-0400 Body mass index (BMI) [Ratio] 37.63 kg/m2 Cheyenne Sinclair DIGESTER HAND.CNM Work Phone: [facility] 01-30-2025 08:40-0400 Body weight 110.68 kg Cheyenne Sinclair DIGESTER HAND.CNM Work Phone: [facility] 01-30-2025 08:40-0400 Diastolic blood pressure 60 mm[Hg] Cheyenne Sinclair DIGESTER HAND.CNM Work Phone: [facility] 01-30-2025 08:40-0400 Systolic blood pressure 120 mm[Hg] Cheyenne Sinclair DIGESTER HAND.CNM Work Phone: [facility] 01-02-2025 15:29-0400 Body mass index (BMI) [Ratio] 37.63 kg/m2 Yasmeen Edmond MD Work Phone: [facility] 01-02-2025 15:29-0400 Body weight 110.68 kg Yasmeen Edmond MD Work Phone: [facility] 01-02-2025 15:29-0400 Diastolic blood pressure 72 mm[Hg] Yasmeen Edmond MD Work Phone: [facility] 01-02-2025 15:29-0400 Systolic blood pressure 114 mm[Hg] Yasmeen Edmond MD Work Phone: [facility] 12-05-2024 14:58-0500 Body mass index (BMI) [Ratio] 36.4 kg/m2 Fern Mary MD Work Phone: [facility] 12-05-2024 14:58-0500 Body weight 107.05 kg Fern Mary MD Work Phone: [facility] 12-05-2024 14:58-0500 Diastolic blood pressure 68 mm[Hg] Fern Mary MD Work Phone: [facility] 12-05-2024 14:58-0500 Systolic blood pressure 120 mm[Hg] Fern Mary MD Work Phone: [facility] 11-13-2024 08:01-0500 Body mass index (BMI) [Ratio] 35.78 kg/m2 Yancy Haury DIGESTER HAND.OPERATIONS ACCOUNTANT Work Phone: [facility] 11-13-2024 08:01-0500 Body weight 105.23 kg Yancy Haury DIGESTER HAND.OPERATIONS ACCOUNTANT Work Phone: [facility] 11-13-2024 08:01-0500 Diastolic blood pressure 64 mm[Hg] Yancy Haury DIGESTER HAND.OPERATIONS ACCOUNTANT Work Phone: [facility] 11-13-2024 08:01-0500 Systolic blood pressure 112 mm[Hg] Yancy Haury DIGESTER HAND.OPERATIONS ACCOUNTANT Work Phone: [facility] 10-13-2024 10:20-0500 Body mass index (BMI) [Ratio] 35.78 kg/m2 Hiren Jordan MD Work Phone: [facility] 10-13-2024 10:20-0500 Body weight 105.23 kg Hiren Jordan MD Work Phone: [facility] 10-13-2024 10:20-0500 Diastolic blood pressure 70 mm[Hg] Hiren Jordan MD Work Phone: [facility] 10-13-2024 10:20-0500 Systolic blood pressure 112 mm[Hg] Hiren Jordan MD Work Phone: [facility] 09-13-2024 09:34-0500 Body height 171.5 cm Yancy Haury DIGESTER HAND.OPERATIONS ACCOUNTANT Work Phone: [facility] 09-13-2024 09:34-0500 Body mass index (BMI) [Ratio] 36.55 kg/m2 Yancy Haury DIGESTER HAND.OPERATIONS ACCOUNTANT Work Phone: [facility] 09-13-2024 09:34-0500 Body weight 107.5 kg Yancy Rodriguez APRN.OPERATIONS ACCOUNTANT Work Phone: [facility] 09-13-2024 09:34-0500 Diastolic blood pressure 64 mm[Hg] Yancy Rodriguez APRN.OPERATIONS ACCOUNTANT Work Phone: [facility] 09-13-2024 09:34-0500 Systolic blood pressure 100 mm[Hg] Yancy Rodriguez APRN.OPERATIONS ACCOUNTANT Work Phone: [facility] 04-11-2024 08:07-0400 Body height 171.5 cm Christy Rosas APRN.OPERATIONS ACCOUNTANT Work Phone: [facility] 04-11-2024 08:07-0400 Body mass index (BMI) [Ratio] 35.8 kg/m2 Christy Rosas APRN.OPERATIONS ACCOUNTANT Work Phone: [facility] 04-11-2024 08:07-0400 Body weight 105.23 kg Christy Rosas APRN.OPERATIONS ACCOUNTANT Work Phone: [facility] 04-11-2024 08:07-0400 Diastolic blood pressure 72 mm[Hg] Christy Rosas APRN.OPERATIONS ACCOUNTANT Work Phone: [facility] 04-11-2024 08:07-0400 Heart rate 76 /min Christy Rosas APRN.OPERATIONS ACCOUNTANT Work Phone: [facility] 04-11-2024 08:07-0400 SaO2% (BldA) [Mass fraction] 99 % Christy Rosas APRN.OPERATIONS ACCOUNTANT Work Phone: [facility] 04-11-2024 08:07-0400 Systolic blood pressure 109 mm[Hg] Christy Rosas APRN.OPERATIONS ACCOUNTANT Work Phone: [facility] 02-11-2024 07:42-0400 Diastolic blood pressure 64 mm[Hg] Yancy Rodriguez APRN.OPERATIONS ACCOUNTANT Work Phone: [facility] 02-11-2024 07:42-0400 Systolic blood pressure 116 mm[Hg] Yancy Haury DIGESTER HAND.OPERATIONS ACCOUNTANT Work Phone: [facility] 02-11-2024 07:17-0400 Body mass index (BMI) [Ratio] 36.02 kg/m2 Yancy Escamillatariq DIGESTER HAND.OPERATIONS ACCOUNTANT Work Phone: [facility] 02-11-2024 07:17-0400 Body weight 104.33 kg Yancy Ecsamillatariq DIGESTER HAND.OPERATIONS ACCOUNTANT Work Phone: [facility] 01-13-2024 08:06-0400 Body height 170.2 cm Yancy Escamillatariq DIGESTER HAND.OPERATIONS ACCOUNTANT Work Phone: [facility] 01-13-2024 08:06-0400 Body weight 104.24 kg Yancy Rodriguez DIGESTER HAND.OPERATIONS ACCOUNTANT Work Phone: [facility] 01-13-2024 08:06-0400 Diastolic blood pressure 72 mm[Hg] Yancy Haury DIGESTER HAND.OPERATIONS ACCOUNTANT Work Phone: [facility] 01-13-2024 08:06-0400 Systolic blood pressure 120 mm[Hg] Yancyvictor hugo Escamillaury DIGESTER HAND.OPERATIONS ACCOUNTANT Work Phone: [facility] 12-02-2021 07:30-0500 Body temperature 98.1 [degF] No Primary Care Physician [facility] Work Phone: 12-02-2021 07:30-0500 Diastolic blood pressure 58 mm[Hg] No Primary Care Physician [facility] Work Phone: 12-02-2021 07:30-0500 Heart rate 108 /min No Primary Care Physician [facility] Work Phone: 12-02-2021 07:30-0500 Respiratory rate 16 /min No Primary Care Physician [facility] Work Phone: 12-02-2021 07:30-0500 Systolic blood pressure 107 mm[Hg] No Primary Care Physician [facility] Work Phone: 11-30-2021 05:27-0500 Body height 172.72 cm No Primary Care Physician [facility] Work Phone: 11-30-2021 05:27-0500 Body mass index (BMI) [Ratio] 33 kg/m2 No Primary Care Physician [facility] Work Phone: 11-30-2021 05:27-0500 Body weight 98.7 kg No Primary Care Physician [facility] Work Phone: Encounters Encounter Date Encounter Type Care Provider Facility Start: 04-05-2025 End: 04-05-2025 Patient encounter procedure Dulce Milner MD Work Phone: OB/Gynecology Comment on above: Supervision of high risk in third trimester (HCC) (Primary Dx); Dichorionic diamniotic twin in third trimester (HCC); Obesity affecting in third trimester, unspecified obesity type (HCC); Anemia complicating , third trimester (HCC); 37 weeks gestation of (HCC) Start: 04-05-2025 End: 04-05-2025 ambulatory MARISOL ANAYA Facility:[facility] Start: 03-27-2025 End: 03-27-2025 Patient encounter procedure [employer] [facility] Comment on above: Dichorionic diamniot ic twin in second trimester (HCC) Dichorionic diamniot ic twin in third trimester (HCC) (Primary Dx); Obesity affecting in third trimester, unspecified obesity type (HCC); Anemia complicating , third trimester (HCC) Start: 03-27-2025 End: 03-27-2025 ambulatory FERN MARY Facility:[facility] Start: 03-13-2025 End: 03-13-2025 Telephone encounter Janeen Abbott APRN.CNM Work Phone: OB/Gynecology Comment on above: Breast Pump Start: 03-13-2025 End: 03-13-2025 Patient encounter procedure Janeen Abbott APRN.CNM Work Phone: OB/Gynecology Comment on above: Dichorionic diamniot ic twin in third trimester (HCC) (Primary Dx); Obesity affecting in third trimester, unspecified obesity type (HCC); Anemia complicating , third trimester (HCC); Supervision of high risk in third trimester (HCC); 33 weeks gestation of (HCC); Heartburn during in first trimester (HCC) Start: 03-13-2025 End: 03-13-2025 ambulatory MARISOL ANAYA Facility:[facility] Start: 03-12-2025 End: 03-12-2025 Refill Yancy Rodriguez APRN.CNP Work Phone: OB/Gynecology Comment on above: Refill Request Start: 03-02-2025 End: 03-02-2025 ambulatory YANCY RODRIGUEZ Facility:[facility] Start: 03-02-2025 End: 03-02-2025 Patient encounter procedure Marisol Anaya MD Work Phone: OB/Gynecology Comment on above: Dichorionic diamniot ic twin in third trimester (HCC) (Primary Dx); Obesity affecting in third trimester, unspecified obesity type (HCC); Anemia complicating , third trimester (HCC); Supervision of high risk in third trimester (HCC); Skin rash; 32 weeks gestation of (HCC); Multigravida of advanced maternal age in third trimester ([facility]) Dichorionic diamniot ic twin in second trimester (HCC) Start: 02-23-2025 End: 02-23-2025 ambulatory HIREN JORDAN Facility:[facility] Start: 02-13-2025 End: 02-13-2025 Patient encounter procedure Fern Mary MD Work Phone: OB/Gynecology Comment on above: 29 weeks gestation o f (HCC) (Primary Dx); Obesity affecting in third trimester, unspecified obesity type ([facility]); Dichorionic diamniotic twin in third trimester (HCC); Need for vaccination Start: 02-13-2025 End: 02-13-2025 ambulatory FERN MARY Facility:[facility] Start: 01-31-2025 End: 04-02-2025 Follow-up encounter Yasmeen Edmond MD Work Phone: OB/Gynecology Start: 01-31-2025 End: 01-31-2025 ambulatory YASMEEN EDMOND Facility:[facility] Start: 01-30-2025 End: 04-01-2025 Follow-up encounter Yasmeen Edmond MD Work Phone: OB/Gynecology Start: 01-30-2025 End: 01-30-2025 Patient encounter procedure [employer] [facility] Comment on above: Encounter for ultras ound to check growth (HCC) (Primary Dx); Dichorionic diamniotic twin in second trimester (HCC); 27 weeks gestation of (HCC) Supervision of high risk in second trimester (HCC) (Primary Dx); 27 weeks gestation of (HCC); Dichorionic diamniotic twin in second trimester (HCC); Obesity affecting in second trimester, unspecified obesity type (HCC); Heartburn during in first trimester (HCC); Sickle cell trait; Encounter for supervision of high risk in second trimester, antepartum (HCC) Start: 01-30-2025 End: 01-30-2025 ambulatory [facility] Facility:[facility] Start: 01-02-2025 End: 01-02-2025 ambulatory [facility] Facility:[facility] Start: 01-02-2025 End: 01-02-2025 Patient encounter procedure Yasmeen Edmond MD Work Phone: OB/Gynecology Comment on above: Dichorionic diamniot ic twin in second trimester (HCC) (Primary Dx); Supervision of high risk in second trimester (HCC); Screening for diabetes mellitus Start: 01-02-2025 End: 01-02-2025 [facility] Facility:[facility] Start: 01-02-2025 End: 01-02-2025 Patient encounter procedure [employer] Maternal Medicine Comment on above: Dichorionic diamniot ic twin in second trimester (HCC) (Primary Dx); 23 weeks gestation of (HCC) Start: 01-02-2025 End: 03-04-2025 Follow-up encounter Fern Mary MD Work Phone: OB/Gynecology Start: 12-06-2024 End: 02-05-2025 Follow-up encounter Yancy Rodriguez APRN.CNP Work Phone: OB/Gynecology Start: 12-05-2024 End: 12-05-2024 ambulatory YANCY RODRIGUEZ Facility:[facility] Start: 12-05-2024 End: 12-05-2024 ambulatory YANCYVICTOR HUGO ESCAMILLATARIQ Facility:[facility] Start: 12-05-2024 End: 12-05-2024 Patient encounter procedure Noemi Brush MD Work Phone: Maternal Medicine Comment on above: Dichorionic diamniot ic twin in first trimester (Primary Dx); History of sickle cell anemia; Depression with anxiety; Obesity affecting in second trimester, unspecified obesity type; Encounter for anatomic survey; Sickle cell trait (HCC); History of depression Encounter for anatomic survey (Primary Dx); 19 weeks gestation of ; Dichorionic diamniotic twin in first trimester 19 weeks gestation o f (Primary Dx); Obesity affecting in second trimester, unspecified obesity type; Dichorionic diamniotic twin in second trimester; Supervision of high risk in second trimester Start: 11-13-2024 End: 11-13-2024 ambulatory YANCY RANDALLTARIQ Facility:[facility] Start: 11-13-2024 End: 11-13-2024 Patient encounter procedure Yancy Rodriguez APRN.CNP Work Phone: OB/Gynecology Comment on above: Encounter for superv ision of high risk in second trimester, antepartum (Primary Dx); 16 weeks gestation of ; Dichorionic diamniotic twin in second trimester; Obesity affecting in second trimester, unspecified obesity type; History of episiotomy; History of sickle cell anemia; Supervision of high risk in second trimester; Need for influenza vaccination Start: 10-27-2024 End: 10-27-2024 Refill Yancy Rodriguez APRN.CNP Work Phone: OB/Gynecology Comment on above: Refill Request Start: 10-15-2024 End: 10-16-2024 Telephone encounter Caren Carreno APRN.CNP Work Phone: [facility] Comment on above: Results Start: 10-13-2024 End: 10-13-2024 ambulatory CHRISTY ROSAS Facility:[facility] Start: 10-13-2024 End: 10-13-2024 Patient encounter procedure Hiren Jordan MD Work Phone: OB/Gynecology Comment on above: Encounter for superv ision of high risk in first trimester, antepartum (Primary Dx); 12 weeks gestation of Start: 10-10-2024 End: 10-11-2024 Telephone encounter Hiren Jordan MD Work Phone: OB/Gynecology Comment on above: Appointment Start: 09-13-2024 End: 09-13-2024 Patient encounter procedure Yancy Rodriguez APRN.OPERATIONS ACCOUNTANT Work Phone: OB/Gynecology Comment on above: Encounter for superv ision of high risk in first trimester, antepartum (Primary Dx); 8 weeks gestation of ; Dichorionic diamniotic twin in first trimester; with uncertain dates in first trimester; History of episiotomy; History of sickle cell anemia; Language barrier; History of gastrointestinal ulcer; Hiatal hernia; History of depression; Nausea and vomiting during ; History of chlamydia; Constipation during in first trimester; Heartburn during in first trimester; Obesity affecting in first trimester, unspecified obesity type; Depression with anxiety Start: 09-13-2024 End: 09-13-2024 ambulatory YANCY RODRIGUEZ Facility:[facility] Start: 09-11-2024 End: 09-12-2024 Telephone encounter Yancy Rodriguez APRN.CNP Work Phone: OB/Gynecology Comment on above: Appointment Start: 07-28-2024 End: 07-28-2024 Refill Christy Rosas APRN.CNP Work Phone: OB/Gynecology Comment on above: Refill Request Start: 07-12-2024 End: 07-12-2024 ambulatory Carlos John MA [facility] Start: 07-12-2024 End: 07-12-2024 Patient encounter procedure Carlos John MA [facility] Comment on above: Population Health Na vigation Outreach (Sickle Cell Navigation Outreach) Start: 06-12-2024 End: 06-12-2024 ambulatory Carlos John MA [facility] Start: 06-12-2024 End: 06-12-2024 Patient encounter procedure Carlos [facility] Comment on above: Population Health Na vigation Outreach (Sickle Cell Navigation Outreach) Start: 05-11-2024 ambulatory Carlos HouserNeelima MA [facility] [place] Start: 05-11-2024 Patient encounter procedure Carlos John MA [facility] Comment on above: Population Health Na vigation Outreach (Sickle Cell Navigation Outreach/) Start: 05-01-2024 ambulatory Christy Rosas APRN.CNP Work Phone: OB/Gynecology Comment on above: metformin Start: 05-01-2024 E-mail encounter philly m caregiver Christy Rosas APRN.CNP Work Phone: OB/Gynecology Start: 04-11-2024 Telephone encounter Christy sousa APRN.CNP Work Phone: OB/Gynecology Comment on above: Insurance Authorizat ion Start: 04-11-2024 End: 04-11-2024 ambulatory CHRISTY ROSAS Facility:[facility] Start: 04-11-2024 End: 04-11-2024 Patient encounter procedure Christy Rosas APRN.CNP Work Phone: OB/Gynecology Comment on above: Gastroesophageal ref lux disease without esophagitis (Primary Dx); IFG (impaired fasting glucose); PCOS (polycystic ovarian syndrome); Depression with anxiety; Craving for particular food; Screening cholesterol level; Screening for deficiency anemia; Screening for diabetes mellitus; Encounter for vitamin deficiency screening; Class 2 severe obesity with serious comorbidity and body mass index (BMI) of 36.0 to 36.9 in adult, unspecified obesity type (HCC) Start: 02-11-2024 Telephone encounter Yancy marquez APRN.CNP Work Phone: OB/Gynecology Comment on above: Results Start: 02-11-2024 End: 02-11-2024 Patient encounter procedure Yancy Rodriguez APRN.CNP Work Phone: OB/Gynecology Comment on above: Encounter for IUD re moval (Primary Dx) Start: 01-28-2024 End: 01-28-2024 Subsequent hospital visit by physician [facility] 2 Work Phone: Radiology Comment on above: Pelvic pain in femal e [R10.2] Start: 01-24-2024 Telephone encounter Yancy marquez APRN.CNP Work Phone: OB/Gynecology Comment on above: Results Start: 01-14-2024 Telephone encounter Yancy Escamillastepan marquez APRN.CNP Work Phone: OB/Gynecology Comment on above: Results Start: 01-13-2024 End: 01-13-2024 Patient encounter procedure Yancy Escamillatariq MEJIAOPERATIONS ACCOUNTANT Work Phone: OB/Gynecology Comment on above: Encounter for gyneco logical examination (general) (routine) without abnormal findings (Primary Dx); Screening for cervical cancer; Encounter for screening for human papillomavirus (HPV); Encounter for IUD removal; PCOS (polycystic ovarian syndrome); Class 2 obesity with body mass index (BMI) of 35.0 to 35.9 in adult, unspecified obesity type, unspecified whether serious comorbidity present; Pelvic pain in female; Screening examination for STD (sexually transmitted disease); Screening for thyroid disorder; Depression, unspecified depression type Start: 01-13-2024 End: 01-13-2024 Patient encounter status Yancy Escamillatariq OLEA Work Phone: [facility] Start: 01-06-2024 Telephone encounter Yancy marquez APRN.CNP Work Phone: OB/Gynecology Start: 02-03-2022 End: 02-03-2022 Patient encounter procedure No Primary Care Physician [facility], Specimen Start: 12-04-2021 End: 12-04-2021 Patient encounter procedure No Primary Care Physician [facility] Start: 11-30-2021 End: 12-02-2021 Evaluation and management of inpatient No [facility] Start: 10-31-2021 End: 10-31-2021 Patient encounter procedure No Primary Care Physician [facility], Specimen Start: 10-17-2021 End: 10-17-2021 Patient encounter procedure No Primary Care Physician [facility] Start: 02-11-2018 Ambulatory SHANE ROSARIO [facility] Procedures Date Procedure Procedure Detail Performing Clinician Start: 04-05-2025 Urnls dip stick/tabl et rgnt non-auto w/o micrscp Dulce Milner MD Work Phone: Start: 03-27-2025 Us preg uterus after 1st trimest 1/ gestation Fern Mary MD Work Phone: Start: 03-02-2025 Us preg uterus after 1st trimest / gestation Fern Mary MD Work Phone: Start: 01-30-2025 Us preg uterus after 1st trimest / gestation Fern Mary MD Work Phone: Start: 01-02-2025 Us preg uterus after 1st trimest / gestation Fern Mary MD Work Phone: Start: 12-05-2024 Us preg uterus after 1st trimest / gestation Yancy Rodriguez APRN.OPERATIONS ACCOUNTANT Work Phone: Start: 10-13-2024 Antibody screen YANCY CALHOUN Comment on above: Order Comment: Speci men Type: BLOOD SPECIMEN Ordering Facility: [facility] Address: [address] [place] [address] Performed By: #### 1 [id number] #### [facility] CLIA [id number] [address] [place] [address] [place] Start: 09-13-2024 Us uterus l imited 1/> fetuses Yancy Rodriguez APRN.OPERATIONS ACCOUNTANT Work Phone: Start: 11-30-2021 SARS-CoV-2 Antigen (Rapid) No Primary Care Physician Start: 10-31-2021 Group B Streptococcu s Culture No Primary Care Physician Plan of Treatment Date Care Activity Detail Author Start: 02-13-2035 Urine microalbumin profile DTaP,Tdap,Td Vaccine (2 - Td or Tdap) [facility] Start: 01-12-2029 Screening for malign ant neoplasm of cervix [facility] Start: 06-04-2025 Influenza vaccination Influenza Vacc ine (#1) [facility] Start: 04-05-2025 End: 04-05-2025 Patient encounter procedure OB/Gynecology Comment on above: NST NST/OB Start: 03-27-2025 End: 03-27-2025 Patient encounter procedure Maternal Medicine Comment on above: Growth Twin Twin Growth /OB Start: 03-13-2025 End: 03-13-2025 Patient encounter procedure 03/13/2025 8:00 AM EDT Routine Office Visit OB/Gynecology [address] [place] [address] Janeen Abbott APRN.CN [address] [place] [address] OB OB/Gynecology Comment on above: OB Start: 03-02-2025 End: 06-01-2025 CBC panel - Blood by Automated count COMPLETE BLOOD COUNT Lab Routine Anemia complicating , third trimester (HCC) Expected: 03/02/2025, Expires: 06/01/2025 [facility] Work Phone: Comment on above: Expected: 03/02/2025 , Expires: 06/01/2025 Start: 03-02-2025 End: 03-02-2025 Patient encounter procedure Maternal Medicine Comment on above: Growth Growth/OB Start: 02-13-2025 End: 02-13-2025 Patient encounter procedure 02/13/2025 9:10 AM EDT Routine Office Visit OB/Gynecology [address] [place] [address] Fern Mary MD [address] [place] [address] OB OB/Gynecology Comment on above: OB Start: 01-31-2025 End: 01-31-2025 ambulatory 01/31/2025 7:00 AM EDT Results Only [place] [facility] [address] [place] [address] Abnormal glucose complicating (HCC) [O99.810] [facility] Comment on above: Abnormal glucose com plicating (HCC) [O99.810] Start: 01-30-2025 End: 01-30-2025 Patient encounter procedure Maternal Medicine Comment on above: Twin Growth Twin growth /OB Start: 01-30-2025 End: 01-30-2025 ambulatory 01/30/2025 7:45 AM EDT Results Only [place] [facility] [address] [place] [address] Glucose Test [place] [facility] Comment on above: Glucose Test Start: 01-12-2025 Screening for malign ant neoplasm of cervix Cervical Cancer Screening [facility] Start: 01-12-2025 End: 01-12-2025 Patient encounter procedure 01/12/2025 7:15 AM EDT Office Visit OB/Gynecology [address] [place] [address] Yancy Rodriguez APRN.OPERATIONS ACCOUNTANT [address] [place] [address] Annual OB/Gynecology Comment on above: Annual Start: 01-02-2025 End: 01-02-2025 Patient encounter procedure 01/02/2025 3:40 PM EDT Routine Office Visit OB/Gynecology [address] [place] [address] Yasmeen Edmond MD [address] [place] [address] OB Routine OB/Gynecology Comment on above: OB Routine Start: 01-02-2025 End: 01-02-2025 Patient encounter procedure 01/02/2025 2:30 PM EDT Routine Office Visit Maternal Medicine [address] [place] [address] Growth US Maternal Medicine Comment on above: Growth US Start: 01-02-2025 End: 04-03-2025 ANEMIA REFLEX PANEL ANEMIA REFLEX PANEL Lab Routine Dichorionic diamniotic twin in second trimester Supervision of high risk in second trimester Screening for diabetes mellitus Expected: 01/02/2025, Expires: 04/03/2025 [facility] Comment on above: Expected: 01/02/2025 , Expires: 04/03/2025 Start: 01-02-2025 End: 01-02-2026 GESTATIONAL GLUCOSE SCREEN, 1-HOUR, 50 GRAM, NON-FASTING GESTATIONAL GLUCOSE SCREEN, 1-HOUR, 50 GRAM, NON-FASTING Lab Routine Dichorionic diamniotic twin in second trimester Supervision of high risk in second trimester Screening for diabetes mellitus Expected: 01/02/2025, Expires: 01/02/2026 [facility] Work Phone: Comment on above: Expected: 01/02/2025 , Expires: 01/02/2026 Start: 01-02-2025 End: 01-02-2026 SYPHILIS TREPONEMAL W/REFLEX SYPHILIS TREPONEMAL W/REFLEX Lab Routine Dichorionic diamniotic twin in second trimester Supervision of high risk in second trimester Screening for diabetes mellitus Expected: 01/02/2025, Expires: 01/02/2026 [facility] Comment on above: Expected: 01/02/2025 , Expires: 01/02/2026 Start: 12-05-2024 End: 12-05-2024 Patient encounter procedure Maternal Medicine Comment on above: anatomy Consult to MFM Anatomy /Consult to MFM /OB Start: 11-13-2024 End: 11-13-2024 Patient encounter procedure 11/13/2024 8:00 AM EST Routine Office Visit OB/Gynecology [address] [place] [address] Yanyc Rodriguez APRN.OPERATIONS ACCOUNTANT [address] [place] [address] 4 wks OB/Gynecology Comment on above: 4 wks Start: 10-19-2024 End: 10-19-2024 Patient encounter procedure 10/19/2024 10:30 AM EST Routine Office Visit Maternal Medicine [address] [place] [address] Nuch[facility] Maternal Medicine Comment on above: Nuchal Start: 10-13-2024 End: 10-13-2024 Patient encounter procedure OB/Gynecology Comment on above: -- discuss n uchal u/s Start: 09-13-2024 End: 12-13-2024 ANEMIA REFLEX PANEL ANEMIA REFLEX PANEL Lab Routine with uncertain dates in first trimester Expected: 09/13/2024, Expires: 12/13/2024 [facility] Work Phone: Comment on above: Expected: 09/13/2024 , Expires: 12/13/2024 Start: 09-13-2024 End: 12-13-2024 Comprehensive metabolic 2000 panel - Serum or Plasma COMPREHENSIVE METABOLIC PANEL Lab Routine Nausea and vomiting during Expected: 09/13/2024, Expires: 12/13/2024 [facility] Comment on above: Expected: 09/13/2024 , Expires: 12/13/2024 Start: 09-13-2024 End: 12-13-2024 Hemoglobin A1c in Blood HEMOGLOBIN A1C Lab Routine with uncertain dates in first trimester Expected: 09/13/2024, Expires: 12/13/2024 [facility] Comment on above: Expected: 09/13/2024 , Expires: 12/13/2024 Start: 09-13-2024 End: 12-13-2024 Hepatitis B virus surface Ag [Presence] in Serum HEPATITIS B SURFACE ANTIGEN Lab Routine with uncertain dates in first trimester Expected: 09/13/2024, Expires: 12/13/2024 [facility] Comment on above: Expected: 09/13/2024 , Expires: 12/13/2024 Start: 09-13-2024 End: 12-13-2024 Hepatitis C virus Ab [Presence] in Serum HEPATITIS C ANTIBODY IA WITH CONFIRMATION Lab Routine with uncertain dates in first trimester Expected: 09/13/2024, Expires: 12/13/2024 [facility] Comment on above: Expected: 09/13/2024 , Expires: 12/13/2024 Start: 09-13-2024 End: 12-13-2024 HIV 1+2 Ab [Presence] in Serum or Plasma by Immunoassay HIV 1/2 COMBO WITH REFLEX TO DIFFERENTIATION Lab Routine with uncertain dates in first trimester Expected: 09/13/2024, Expires: 12/13/2024 [facility] Comment on above: Expected: 09/13/2024 , Expires: 12/13/2024 Start: 09-13-2024 End: 09-13-2025 NUCHAL TRANSLUCENCY WHI NUCHAL TRANSLUCENCY WHI Anc Imaging Routine Encounter for supervision of high risk in first trimester, antepartum 8 weeks gestation of Dichorionic diamniotic twin in first trimester Expected: 09/13/2024, Expires: 09/13/2025 [facility] Comment on above: Expected: 09/13/2024 , Expires: 09/13/2025 Start: 09-13-2024 End: 09-13-2025 OBSTETRIC ULTRASOUND WHI OBSTETRIC ULTRASOUND WHI Anc Imaging Routine with uncertain dates in first trimester Expected: 09/13/2024, Expires: 09/13/2025 [facility] Comment on above: Expected: 09/13/2024 , Expires: 09/13/2025 Start: 09-13-2024 End: 12-13-2024 RUBELLA IGG ANTIBODY RUBELLA IGG ANTIBODY Lab Routine with uncertain dates in first trimester Expected: 09/13/2024, Expires: 12/13/2024 [facility] Comment on above: Expected: 09/13/2024 , Expires: 12/13/2024 Start: 09-13-2024 End: 12-13-2024 SYPHILIS TREPONEMAL W/REFLEX SYPHILIS TREPONEMAL W/REFLEX Lab Routine with uncertain dates in first trimester Expected: 09/13/2024, Expires: 12/13/2024 [facility] Comment on above: Expected: 09/13/2024 , Expires: 12/13/2024 Start: 09-13-2024 End: 12-13-2024 TYPE + SCREEN TYPE + SCREEN Blood Bank Routine with uncertain dates in first trimester Expected: 09/13/2024, Expires: 12/13/2024 [facility] Comment on above: Expected: 09/13/2024 , Expires: 12/13/2024 Start: 09-13-2024 End: 09-13-2024 Patient encounter procedure 09/13/2024 9:30 AM EST Initial Office Visit OB/Gynecology [address] [place] [address] Yancy Rodriguez, JENNIFER.OPERATIONS ACCOUNTANT [address] [place] [address] OB/Gynecology Start: 06-04-2024 Covid-19 Vaccine ( season) Covid-19 Vaccine () [facility] Start: 06-04-2024 Covid-19 Vaccine ( season) Covid-19 Vaccine () [facility] Start: 06-04-2024 Influenza vaccination [facility] Start: 05-24-2024 End: 05-24-2024 Patient encounter procedure 05/24/2024 7:30 AM EDT Office Visit OB/Gynecology [address] [place] [address] Christy Rosas, DIGESTER HAND.OPERATIONS ACCOUNTANT [address] [place] [address] Wt Mgmt F/U OB/Gynecology Comment on above: Wt Mgmt F/U Start: 04-11-2024 End: 04-11-2024 Patient encounter procedure 04/11/2024 8:00 AM EDT Office Visit OB/Gynecology [address] [place] [address] Christy Rosas, DIGESTER HAND.OPERATIONS ACCOUNTANT [address] [place] [address] new OB/Gynecology Comment on above: new Start: 02-11-2024 End: 02-11-2024 Patient encounter procedure 02/11/2024 7:15 AM EDT Office Visit OB/Gynecology [address] [place] [address] Yancy Rodriguez, DIGESTER HAND.OPERATIONS ACCOUNTANT [address] [place] [address] 4 wk follow up OB/Gynecology Comment on above: 4 wk follow up Start: 01-28-2024 End: 01-28-2024 Patient encounter procedure 01/28/2024 7:00 AM EDT Appointment Radiology [address] [place] [address] Pelvic pain in female [R10.2] Radiology Comment on above: Pelvic pain in femal e [R10.2] Start: 01-13-2024 End: 04-13-2024 Hemoglobin A1c in Blood [facility] Work Phone: Comment on above: Expected: 01/13/2024 , Expires: 04/13/2024 Start: 01-13-2024 End: 04-13-2024 Prolactin [Mass/volume] in Serum or Plasma [facility] Work Phone: Comment on above: Expected: 01/13/2024 , Expires: 04/13/2024 Start: 01-13-2024 End: 04-13-2024 Thyrotropin [Units/volume] in Serum or Plasma [facility] Work Phone: Comment on above: Expected: 01/13/2024 , Expires: 04/13/2024 Start: 10-04-2023 Behavioral Health Screening Behavioral Health Screening [facility] Start: 06-04-2023 Covid-19 Vaccine ( season) Covid-19 Vaccine ( season) [facility] Start: 06-04-2023 Covid-19 Vaccine ( season) Covid-19 Vaccine ( season) [facility] Start: 2020 Screening for malign ant neoplasm of cervix HPV Testing [facility] Start: 2011 Screening for malign ant neoplasm of cervix Pap Testing [facility] Start: 2009 Hepatitis B Vaccine (1 of 3 - 19+ 3-dose series) Hepatitis B Vaccine (1 of 3 - 19+ 3-dose series) [facility] Start: 2009 Pneumococcal vaccination Pneumococcal Vaccine (1 of 2 - PCV) [facility] Start: 2009 Shingrix Vaccine (1 of 2) Shingrix Vaccine (1 of 2) [facility] Start: 2009 Urine microalbumin profile DTaP,Tdap,Td Vaccine (1 - Tdap) [facility] Start: 2008 Hepatitis C screening Hepatitis C Sc reening [facility] Start: 2008 HIV screening HIV Screening [facility] Start: 1996 Pneumococcal vaccination Pneumococcal Vaccine (1 of 2 - PCV) [facility] Bacteria identified in Urine by Culture URINE CULTURE Microbiology Routine with uncertain dates in first trimester 09/13/2024 10:36 AM [facility] Chlamydia trachomatis+Neisseria gonorrhoeae DNA [Presence] in Unspecified specimen by KIRBY with probe detection GONORRHEA/CHLAMYDIA NAAT Lab Routine Screening examination for STD (sexually transmitted disease) 01/13/2024 9:27 AM T [facility] Work Phone: Chlamydia trachomatis+Neisseria gonorrhoeae DNA [Presence] in Unspecified specimen by KIRBY with probe detection GONORRHEA/CHLAMYDIA NAAT Lab Routine with uncertain dates in first trimester 09/13/2024 10:36 AM [facility] End: 06-04-2025 nonstress test NON-STRESS TEST Procedures Routine Dichorionic diamniotic twin in second trimester (HCC) Encounter for supervision of high risk in second trimester, antepartum ([facility]) Once per week for 4 Occurrences starting 01/30/2025 until 06/04/2025 [facility] Work Phone: Comment on above: Once per week for 4 Occurrences starting 01/30/2025 until 06/04/2025 End: 04-25-2025 nonstress test NON-STRESS TEST Procedures Routine Dichorionic diamniotic twin in third trimester ([facility]) Obesity affecting in third trimester, unspecified obesity type ([facility]) Multigravida of advanced maternal age in third trimester ([facility]) Once per week for 3 Occurrences starting 03/02/2025 until 04/25/2025 [facility] Comment on above: Once per week for 3 Occurrences starting 03/02/2025 until 04/25/2025 HIGH RISK HUMAN PAPILLOMA VIRUS (HPV), PCR FOR DETECTION AND GENOTYPING HIGH RISK HUMAN PAPILLOMA VIRUS (HPV), PCR FOR DETECTION AND GENOTYPING Lab Routine Screening for cervical cancer Encounter for screening for human papillomavirus (HPV) 01/13/2024 9:27 AM T [facility] Work Phone: End: 03-30-2025 OBSTETRIC ULTRASOUND WHI OBSTETRIC ULTRASOUND WHI Anc Imaging Routine Dichorionic diamniotic twin in second trimester Once per month for 4 Occurrences starting 12/05/2024 until 03/30/2025 [facility] Work Phone: Comment on above: Once per month for 4 Occurrences starting 12/05/2024 until 03/30/2025 PAP TEST PAP TEST Lab Ade dickson Screening for cervical cancer Encounter for screening for human papillomavirus (HPV) 01/13/2024 9:27 AM EDT [facility] Work Phone: Patient referral [facility] Work Phone: Removal intrauterine device iud REMOVE INTRAUTERINE DEVICE Procedures Routine Encounter for IUD removal Ordered: 01/13/2024 [facility] Work Phone: Comment on above: Ordered: 01/13/2024 Removal intrauterine device iud REMOVE INTRAUTERINE DEVICE Procedures Routine Encounter for IUD removal Ordered: 02/11/2024 [facility] Work Phone: Comment on above: Ordered: 02/11/2024 ROUTINE, GR OUP B STREPTOCOCCUS BY PCR ROUTINE, GROUP B STREPTOCOCCUS BY PCR Microbiology Routine Dichorionic diamniotic twin in third trimester (HCC) Obesity affecting in third trimester, unspecified obesity type (HCC) Anemia complicating , third trimester (HCC) 03/27/2025 12:25 PM EDT [facility] TRICHOMONAS VAGINALI S NAAT TRICHOMONAS VAGINALIS NAAT Lab Routine Screening examination for STD (sexually transmitted disease) 01/13/2024 9:27 AM EDT [facility] Work Phone: URINE OB DIP B/O URINE OB DIP B/ O Lab Routine Dichorionic diamniotic twin in third trimester (HCC) Obesity affecting in third trimester, unspecified obesity type (HCC) Anemia complicating , third trimester (HCC) Ordered: 03/27/2025 [facility] Work Phone: Comment on above: Ordered: 03/27/2025 End: 02-11-2025 US Pelvis transvaginal US FEMALE PELVIS TRANSVAG Radiology Routine Pelvic pain in female 1 Occurrences starting 01/13/2024 until 02/11/2025 [facility] Work Phone: Comment on above: 1 Occurrences starti ng 01/13/2024 until 02/11/2025 US Pelvis transvaginal US FEMALE PELVIS TRANSVAG Radiology Routine Pelvic pain in female 01/28/2024 7:49 AM EDT [facility] Work Phone: [facility] Immunizations Immunization Date Immunization Notes Care Provider Kody marinelli 02-13-2025 tetanus toxoid, redu joshua diphtheria toxoid, and acellular pertussis vaccine, adsorbed Fern Mary MD Work Phone: [facility] 11-13-2024 influenza, seasonal, injectable Yancy Hatariq DIGESTER [employer].OPERATIONS ACCOUNTANT Work Phone: [facility] 11-13-2024 influenza virus vaccine, unspecified formulation Dulce Milner MD Work Phone: [facility] 11-30-2021 influenza, seasonal, injectable No Primary Care Physician [facility] Work Phone: 11-30-2021 influenza virus vaccine, unspecified formulation Yancy Hatariq DIGESTER HAND.OPERATIONS ACCOUNTANT Work Phone: [facility] Payers Date Payer Category Payer Private Health Insurance [id number] 2023 Unknown [id number] 2023 Unknown [id number] Self-pay [facility] [employer] [id number] Unknown [facility] [employer] [id number] Social History Date Type Detail Facility Start: [facility] Start: 1990 Sex Assigned At Female [facility] Work Phone: Start: 01-13-2024 [facility] tobacco [facility] Start: 01-13-2024 Tobacco use and exposure Smokeless tobacco non-user [facility] Start: 01-13-2024 End: 04-05-2025 Alcohol intake Lifetime non-drinker (finding) [facility] Start: 01-13-2024 End: 02-11-2024 History of Social function [facility] Start: 01-13-2024 End: 02-11-2024 Tobacco use panel [facility] Start: 1990 Sex Assigned At Not on file [facility] National Score (1-10 0), lower number is lower risk 67 [facility] The thought of chiquis leslie myself has occurred to me Never [facility] Start: 08-02-2024 [facility] Start: 09-12-2024 Education 20 [facility] Goals Date Patient Goal Desired Activity /State Personal health goal Functional Status Date Assessment Result Facility 11-30-2021 Functional status Activity [facility] Work Phone: Clinical Notes 11-30-2021 to 04-05-2025 Dulce Milner MD - 04/05/2025 3:23 PM EDTPrenatal Quick Notes - Dulce Milner MD - 04/05/2025 11:01 AM EDTPrenatal Quick Notes - Dulce Milner MD - 04/05/2025 11:01 AM EDT Note Date & Type Note Facility 04-05-2025 Note HNO ID: [id number] Author: DULCE MILNER MD Service: ? Author Type: Physician Type: Progress Notes Filed: 04/05/2025 15:23 Note Text: NST SUMMARY PROVIDER ASSESSMENT AND INTERPRETATION Indications for NST: Multiple Gestation Baseline: 145 Variability: Moderate Accelerations: Present 15 X 15 Decelerations: None Interpretation: Reactive SIGNATURE: Dulce Milner MD [facility] 04-05-2025 History of Present illness Narrative NST SUMMARY PROVIDER ASSESSMENT AND INTERPRETATION Indications for NST: Multiple Gestation Baseline: 145 Variability: Moderate Accelerations: Present 15 X 15 Decelerations: None Interpretation: Reactive SIGNATURE: Dulce Milner MD documented in this encounter [facility] 07-03-2025 Progress note Formatting of t his note might be different from the original. S: Karissa Perdomo is a 34 year old female who presents at 04/25/2025, by Last Menstrual Period for a routine visit. Denies headache, visual changes, chest pain, shortness of breath, vaginal bleeding, leakage of fluid, or dysuria. Feeling well, no complaints. Good movement, No contractions O: See flow sheet Gen: No apparent distress Abd: Gravid, nontender Reactive NST Plan for IOL at 38 weeks Scheduled next week on per pt request ASSESSMENT/PLAN: 1. Supervision of high risk in third trimester ([facility]) - ICD9: V23.9, ICD10: O09.93 (primary diagnosis) - URINE OB DIP B/O 2. Dichorionic diamniotic twin in third trimester ([facility]) - ICD9: 651.03, V91.03, ICD10: O30.043 URINE OB DIP B/O 3. Obesity affecting in third trimester, unspecified obesity type ([facility]) - ICD9: 649.13, ICD10: O99.213 Weekly NSTs - URINE OB DIP B/O 4. Anemia complicating , third trimester ([facility]) - ICD9: 648.23, 285.9, ICD10: O99.013 - URINE OB DIP B/O 5. 37 weeks gestation of ([facility]) - ICD9: V22.2, ICD10: Z3A.37 - URINE OB DIP B/O Dulce Milner MD T [facility] 04-05-2025 Miscellaneous Notes S: Karissa Perdomo is a 34 year old female who presents at 04/25/2025, by Last Menstrual Period for a routine visit. Denies headache, visual changes, chest pain, shortness of breath, vaginal bleeding, leakage of fluid, or dysuria. Feeling well, no complaints. Good movement, No contractions O: See flow sheet Gen: No apparent distress Abd: Gravid, nontender Reactive NST Plan for IOL at 38 weeks Scheduled next week on per pt request ASSESSMENT/PLAN: 1. Supervision of high risk in third trimester ([facility]) - ICD9: V23.9, ICD10: O09.93 (primary diagnosis) - URINE OB DIP B/O 2. Dichorionic diamniotic twin in third trimester ([facility]) - ICD9: 651.03, V91.03, ICD10: O30.043 URINE OB DIP B/O 3. Obesity affecting in third trimester, unspecified obesity type ([facility]) - ICD9: 649.13, ICD10: O99.213 Weekly NSTs - URINE OB DIP B/O 4. Anemia complicating , third trimester ([facility]) - ICD9: 648.23, 285.9, ICD10: O99.013 - URINE OB DIP B/O 5. 37 weeks gestation of ([facility]) - ICD9: V22.2, ICD10: Z3A.37 - URINE OB DIP B/O Dulce Milner MD documented in this encounter [facility] 04-05-2025 Instructions Prabha Saunders MA - 04/05/2025 9:22 AM EDT SEQUENTIAL SCREENINGS The [facility] offers sequential screenings for women who are interested in screenings for chromosomal abnormalities and certain defects during a . The sequential screen combines ultrasound and blood tests to determine the risk of chromosomal abnormalities, including Down's Syndrome (Trisomy 21) and Trisomy 18, as well as open neural tube defects including spina bifida. Ultrasound examination is performed between 11 weeks and 13 weeks gestational age. Blood tests are drawn after the ultrasound and again later in the between 15 and 21 weeks gestational age. Please let your physician know if you are interested in this testing. It will require an appointment with our windshield technician. This is not an ultrasound performed by a physician in our office during a routine visit. SIGNS AND SYMPTOMS OF LABOR 1. Contractions every 10 minutes or more often 2. Clear, pink, or brownish fluid (water) leaking from vagina 3. Feeling that baby is pushing down, pressure 4. Low, dull backache 5. Cramps that feel like a period 6. Cramps with or without diarrhea If you notice any of the above symptoms, contact our office at [phone] and ask to speak with a nurse. After hours, you can call doctors registry at [phone] OR call [facility] at [phone] and ask to have the doctor evaluation advisor paged. If you consider this an emergency, dial 9-1-5 or go to your nearest emergency department. NEED HELP? Are you dealing with a violent or abusive relationship? Are you a victim of rape or sexual assult? Call [facility] ([place]) 24 hour Crisis Hotline: 430.792.4911 or 997-740-4887. MANUAL Your Guide to a Healthy manual is now on-line. Visit [email or web address] [email or web address] to download your free copy documented in this encounter [facility] 03-27-2025 Progress note Formatting of t his note might be different from the original. KJ - S: Louceline denies LOF, contractions or vaginal bleeding. O: 35w6d, see flow sheet SENSITIVE EXAM: The sensitive examination was discussed with the Patient or Patient's Authorized Cordwood Cutter Helper. As applicable, any other physician, advance practice provider, medical student, or other health professional student that will be observing or involved in the sensitive examination for educational or training purposes was discussed with the Patient or Authorized [employer]wood Cutter Helper. The Patient or Authorized Cordwood Cutter Helper has agreed to proceed with the sensitive examination. (Sensitive examination includes inspection and/or palpation of the breasts, pelvis, prostate and anorectal regions). A/P: Assessment & Plan Dichorionic diamniotic twin in third trimester (HCC) Growth US with BPP today. NST next week. Plan for delivery at 38 weeks. Orders: ROUTINE, GROUP B STREPTOCOCCUS BY PCR URINE OB DIP B/O Obesity affecting in third trimester, unspecified obesity type (HCC) Orders: ROUTINE, GROUP B STREPTOCOCCUS BY PCR URINE OB DIP B/O Anemia complicating , third trimester (HCC) Orders: ROUTINE, GROUP B STREPTOCOCCUS BY PCR URINE OB DIP B/O Reviewed PTL & FM precautions Fern Mary MD [facility] 03-27-2025 Miscellaneous Notes KJ - S: Louceline denies LOF, contractions or vaginal bleeding. O: 35w6d, see flow sheet SENSITIVE EXAM: The sensitive examination was discussed with the Patient or Patient's Authorized Cordwood Cutter Helper. As applicable, any other physician, advance practice provider, medical student, or other health professional student that will be observing or involved in the sensitive examination for educational or training purposes was discussed with the Patient or Authorized Cordwood Cutter Helper. The Patient or Authorized Cordwood Cutter Helper has agreed to proceed with the sensitive examination. (Sensitive examination includes inspection and/or palpation of the breasts, pelvis, prostate and anorectal regions). A/P: Assessment & Plan Dichorionic diamniotic twin in third trimester (HCC) Growth US with BPP today. NST next week. Plan for delivery at 38 weeks. Orders: ROUTINE, GROUP B STREPTOCOCCUS BY PCR URINE OB DIP B/O Obesity affecting in third trimester, unspecified obesity type ([facility]) Orders: ROUTINE, GROUP B STREPTOCOCCUS BY PCR URINE OB DIP B/O Anemia complicating , third trimester ([facility]) Orders: ROUTINE, GROUP B STREPTOCOCCUS BY PCR URINE OB DIP B/O Reviewed PTL & FM precautions Fern Mary MD documented in this encounter [facility] 03-27-2025 Note Indication Evaluation of growth, Evaluation of well-being Di-Di twins, sickle cell trait, Maternal obesity, BMI >35 Impression Follow-up assessment of growth and well-being in a dichorionic diamniotic twin complicated by class 1 obesity (BMI 35). - Live, dichorionic/diamniotic intrauterine . - presentation is cephalic, maternal left for Fetus A and cephalic, maternal right for Fetus B. - The biometry is concordant and consistent with the assigned gestational dating for both fetuses. - The EFW is 2735 g, at the 45%. AC is at the 38% for Fetus A. - The EFW is 3030 g, at the 75%. AC is at the 52% for Fetus B. - Normal amniotic fluid volume with an MVP of 3.7 cm for Fetus A and 3.9 cm for Fetus B. - The placenta is anterior, fundal for Fetus A and posterior, fundal for Fetus B. - BPP is 8/8 for Fetus A and 8/8 for Fetus B. - No malformations visualized on a limited survey of both fetuses as detailed below. The patient was counseled regarding the sonographic findings and the potential for non-visualized malformations. Serial assessment of growth (every 4 weeks) and weekly surveillance are recommended. All questions were addressed. Thank you for the referral. Recommendations As above Maternal Assessment Height 173 cm Height (ft) 5 ft Height (in) 8 in Physical Exam Initial weight (lb) 232 lb Initial BMI 35.28 kg/m Maternal assessment other: 2 Para 1 Method Transabdominal ultrasound examination. View: Suboptimal view: limited by position Twin . Number of fetuses: 2. Dichorionic-diamniotic Dating LMP on: 07/19/2024 GA by LMP 35 w + 6 d JACQUE by LMP: 04/25/2025 GA by prior assessment 35 w + 6 d JACQUE by prior assessment: 04/25/2025 Ultrasound examination on: 03/27/2025 GA by U/S based upon: AC, BPD, Femur, HC GA by U/S 35 w + 3 d JACQUE by U/S: 04/28/2025 GA by U/S based upon (Fetus 2): AC, BPD, Femur, HC GA by U/S (Fetus 2) 36 w + 3 d JACQUE by U/S (Fetus 2): 04/21/2025 Assigned: based on stated JACQUE, selected on 03/27/2025 Assigned GA 35 w + 6 d Assigned JACQUE: 04/25/2025 Fetus A: General Evaluation Cardiac activity present. FHR 131 bpm. movements: present. Presentation: cephalic, maternal left Placenta: Placental site: anterior, fundal Umbilical cord: 3 vessel cord Amniotic fluid: Amount of AF: normal amount. MVP 3.7 cm Fetus B: General Evaluation Cardiac activity present. FHR 158 bpm. movements: present. Presentation: cephalic, maternal right Placenta: Placental site: posterior, fundal Umbilical cord: 3 vessel cord Amniotic fluid: Amount of AF: normal amount. MVP 3.9 cm Fetus A: Biophysical Profile 2: breathing movements 2: Gross body movements 2: tone 2: Amniotic fluid volume 8/8 Biophysical profile score Fetus B: Biophysical Profile 2: breathing movements 2: Gross body movements 2: tone 2: Amniotic fluid volume 05/11 Biophysical profile score Fetus A: Growth Overview Exam date GA BPD (mm) HC (mm) AC (mm) FL (mm) HL (mm) EFW (g) 12/05/2024 19w 6d 45.8 49% 168.1 37% 143.1 38% 32.9 78% 31.1 72% 315 43% 01/02/2025 23w 6d 58.6 48% 212.6 33% 189 35% 43.6 79% 633 40% 01/30/2025 27w 6d 66.1 8% 255.8 37% 236.5 45% 57.9 >99% 1271 70% 03/02/2025 32w 2d 78.8 23% 297.4 45% 277.3 34% 65.6 95% 2006 49% 03/27/2025 35w 6d 87.4 41% 315.5 28% 311.9 38% 72.3 93% 2735 45% Fetus B: Growth Overview Exam date GA BPD (mm) HC (mm) AC (mm) FL (mm) HL (mm) EFW (g) 12/05/2024 19w 6d 44.4 32% 166.9 34% 143.5 39% 34.1 88% 33.4 94% 325 52% 01/02/2025 23w 6d 54.7 9% 208.3 23% 194.6 51% 45.4 94% 677 60% 01/30/2025 27w 6d 68.3 26% 257.9 43% 243.9 67% 53.8 81% 1237 62% 03/02/2025 32w 2d 77.2 10% 298 46% 286.6 61% 66.5 98% 2136 68% 03/27/2025 35w 6d 85.9 23% 331.5 69% 316.5 52% 75.6 >99% 3030 75% F (more content not included)... [facility]ERNAL [facility]ICINE 03-27-2025 Instructions Mar Weiner MA - 03/27/2025 10:49 AM EDT SEQUENTIAL SCREENINGS The [facility] offers sequential screenings for women who are interested in screenings for chromosomal abnormalities and certain defects during a . The sequential screen combines ultrasound and blood tests to determine the risk of chromosomal abnormalities, including Down's Syndrome (Trisomy 21) and Trisomy 18, as well as open neural tube defects including spina bifida. Ultrasound examination is performed between 11 weeks and 13 weeks gestational age. Blood tests are drawn after the ultrasound and again later in the between 15 and 21 weeks gestational age. Please let your physician know if you are interested in this testing. It will require an appointment with our windshield technician. This is not an ultrasound performed by a physician in our office during a routine visit. SIGNS AND SYMPTOMS OF LABOR 1. Contractions every 10 minutes or more often 2. Clear, pink, or brownish fluid (water) leaking from vagina 3. Feeling that baby is pushing down, pressure 4. Low, dull backache 5. Cramps that feel like a period 6. Cramps with or without diarrhea If you notice any of the above symptoms, contact our office at [phone] and ask to speak with a nurse. After hours, you can call doctors registry at [phone] OR call [facility] at [phone] and ask to have the doctor evaluation advisor paged. If you consider this an emergency, dial 9-1-3 or go to your nearest emergency department. NEED HELP? Are you dealing with a violent or abusive relationship? Are you a victim of rape or sexual assult? Call [facility] ([place]) 24 hour Crisis Hotline: 642.657.3209 or 626-343-1890. MANUAL Your Guide to a Healthy manual is now on-line. Visit [email or web address] ncyGuide to download your free copy documented in this encounter [facility] 03-13-2025 Telephone encounter Note Order signed and faxed. Chayito Cedeno RN [facility] 03-13-2025 Miscellaneous Notes Order signed and faxed. Chayito Cedeno RN Breast pump order received from [employer]. To CP to sign. Chayito Cedeno RN documented in this encounter [facility] 03-13-2025 Telephone encounter Note Breast pump order received from [employer]. To CP to sign. Chayito Cedeno RN [facility] 03-13-2025 Progress note Formatting of t his note might be different from the original. S: Karissa Ariza is a 34 year old female who presents at 33 weeks gestation for a routine visit. Positive movements. Continues to have acid reflux with emesis if forgets to take medications. Taking oral iron. Increased pelvic soreness at times. Denies headache, visual changes, chest pain, shortness of breath, vaginal bleeding, leakage of fluid, or dysuria. O: See flow sheet Gen: No apparent distress Abd: Gravid, nontender Baby A- vertex, Baby B- vertex ASSESSMENT/PLAN: 1. Dichorionic diamniotic twin in third trimester 2. Obesity affecting in third trimester, unspecified obesity type 3. Anemia complicating , third trimester 4. Supervision of high risk in third trimester 5. 33 weeks gestation of 6. Heartburn during in first trimester - Repeat CBC today - D/C Pepcid PO - Rx Protonix 20 mg XR PO Daily - Decreased appetite- recommended trying to drink protein shake if unable to eat - PTL precautions and kick counts reviewed - RTO 2 weeks for follow up growth US and MARY - NST's to start at 36 weeks gestation Janeen Abbott APRN.CNM [facility] 03-13-2025 Miscellaneous Notes S: Karissa Ariza is a 34 year old female who presents at 33 weeks gestation for a routine visit. Positive movements. Continues to have acid reflux with emesis if forgets to take medications. Taking oral iron. Increased pelvic soreness at times. Denies headache, visual changes, chest pain, shortness of breath, vaginal bleeding, leakage of fluid, or dysuria. O: See flow sheet Gen: No apparent distress Abd: Gravid, nontender Baby A- vertex, Baby B- vertex ASSESSMENT/PLAN: 1. Dichorionic diamniotic twin in third trimester 2. Obesity affecting in third trimester, unspecified obesity type 3. Anemia complicating , third trimester 4. Supervision of high risk in third trimester 5. 33 weeks gestation of 6. Heartburn during in first trimester - Repeat CBC today - D/C Pepcid PO - Rx Protonix 20 mg XR PO Daily - Decreased appetite- recommended trying to drink protein shake if unable to eat - PTL precautions and kick counts reviewed - RTO 2 weeks for follow up growth US and MARY - NST's to start at 36 weeks gestation Janeen Abbott APRN.CNM documented in this encounter [facility] 03-13-2025 Instructions Steve Ramirez MA - 03/13/2025 8:11 AM EDT SEQUENTIAL SCREENINGS The [facility] offers sequential screenings for women who are interested in screenings for chromosomal abnormalities and certain defects during a . The sequential screen combines ultrasound and blood tests to determine the risk of chromosomal abnormalities, including Down's Syndrome (Trisomy 21) and Trisomy 18, as well as open neural tube defects including spina bifida. Ultrasound examination is performed between 11 weeks and 13 weeks gestational age. Blood tests are drawn after the ultrasound and again later in the between 15 and 21 weeks gestational age. Please let your physician know if you are interested in this testing. It will require an appointment with our windshield technician. This is not an ultrasound performed by a physician in our office during a routine visit. SIGNS AND SYMPTOMS OF LABOR 1. Contractions every 10 minutes or more often 2. Clear, pink, or brownish fluid (water) leaking from vagina 3. Feeling that baby is pushing down, pressure 4. Low, dull backache 5. Cramps that feel like a period 6. Cramps with or without diarrhea If you notice any of the above symptoms, contact our office at [phone] and ask to speak with a nurse. After hours, you can call doctors registry at [phone] OR call [facility] at [phone] and ask to have the doctor evaluation advisor paged. If you consider this an emergency, dial 9--7 or go to your nearest emergency department. NEED HELP? Are you dealing with a violent or abusive relationship? Are you a victim of rape or sexual assult? Call [facility] ([place]) 24 hour Crisis Hotline: 713.483.7954 or 621-208-4716. MANUAL Your Guide to a Healthy manual is now on-line. Visit [email or web address] to download your free copy documented in this encounter [facility] 03-02-2025 Note Indication Evaluation of growth Di-Di twins Maternal obesity, BMI >35, Sickle cell trait Impression REMOTE READ Live, dichorionic/diamniotic intrauterine . - presentation is cephalic, maternal left for Fetus A and cephalic, maternal right for Fetus B. - The biometry is consistent with the assigned gestational dating for both fetuses. - The EFW is 2006 g grams, at the 49%. AC is at the 34% for Fetus A. - The EFW is 2136 g grams, at the 68% percentile. AC is at the 61% percentile for Fetus B. - Normal amniotic fluid volume with an MVP of 3.6 cm for Fetus A and 6.7 cm for Fetus B. - The placenta is anterior, fundal for Fetus A and posterior, fundal for Fetus B. - No malformations visualized on a limited survey as detailed below. Recommendations - growth scan in 4 weeks - Additional follow up as clinically indicated. Maternal Assessment Height 173 cm Height (ft) 5 ft Height (in) 8 in Physical Exam Initial weight (lb) 232 lb Initial BMI 35.28 kg/m Maternal assessment other: 2 Para 1 Method Transabdominal ultrasound examination Twin . Number of fetuses: 2. Dichorionic-diamniotic Dating LMP on: 07/19/2024 GA by LMP 32 w + 2 d JACQUE by LMP: 04/25/2025 GA by prior assessment 32 w + 2 d JACQUE by prior assessment: 04/25/2025 Ultrasound examination on: 03/02/2025 GA by U/S based upon: AC, BPD, Femur, HC GA by U/S 32 w + 2 d JACQUE by U/S: 04/25/2025 GA by U/S based upon (Fetus 2): AC, BPD, Femur, HC GA by U/S (Fetus 2) 32 w + 3 d JACQUE by U/S (Fetus 2): 04/24/2025 Assigned: based on stated JACQUE, selected on 01/30/2025 Assigned GA 32 w + 2 d Assigned JACQUE: 04/25/2025 Fetus A: General Evaluation Cardiac activity present. FHR 144 bpm. movements: present. Presentation: cephalic, maternal left Placenta: Placental site: anterior, fundal Umbilical cord: 3 vessel cord Amniotic fluid: Amount of AF: normal amount. MVP 3.6 cm Fetus B: General Evaluation Cardiac activity present. FHR 139 bpm. movements: present. Presentation: cephalic, maternal right Placenta: Placental site: posterior, fundal Umbilical cord: 3 vessel cord Amniotic fluid: Amount of AF: normal amount. MVP 6.7 cm Fetus A: Growth Overview Exam date GA BPD (mm) HC (mm) AC (mm) FL (mm) HL (mm) EFW (g) 12/05/2024 19w 6d 45.8 49% 168.1 37% 143.1 38% 32.9 78% 31.1 72% 315 43% 01/02/2025 23w 6d 58.6 48% 212.6 33% 189 35% 43.6 79% 633 40% 01/30/2025 27w 6d 66.1 8% 255.8 37% 236.5 45% 57.9 >99% 1271 70% 03/02/2025 32w 2d 78.8 23% 297.4 45% 277.3 34% 65.6 95% 2006 49% Fetus B: Growth Overview Exam date GA BPD (mm) HC (mm) AC (mm) FL (mm) HL (mm) EFW (g) 12/05/2024 19w 6d 44.4 32% 166.9 34% 143.5 39% 34.1 88% 33.4 94% 325 52% 01/02/2025 23w 6d 54.7 9% 208.3 23% 194.6 51% 45.4 94% 677 60% 01/30/2025 27w 6d 68.3 26% 257.9 43% 243.9 67% 53.8 81% 1237 62% 03/02/2025 32w 2d 77.2 10% 298 46% 286.6 61% 66.5 98% 2136 68% Fetus A: Biometry Standard BPD 78.8 mm 31w 4d 23% Hadlock OFD 105.8 mm 31w 3d 43% Nicolaides HC 297.4 mm 32w 0d 45% Artemio AC 277.3 mm 31w 6d 34% Hadlock Femur 65.6 mm 33w 4d 95% Artemio EFW 2,006 g 32w 2d 49% Hadlock EFW discordance 6.1 % EFW (lb) 4 lb EFW (oz) 7 oz EFW by: Hadlock (HC-AC-FL) Extended Gas Specialist 4.7 mm Extremities / Bony Struc FL / HC 0.22 Other Structures FHR 144 bpm Fetus B: Biometry Standard BPD 77.2 mm 31w 0d 10% Hadlock OFD 109.1 mm 32w 5d 67% Nicolaides HC 298.0 mm 32w 1d 46% Artemio AC 286.6 mm 32w 5d 61% Hadlock Femur 66.5 mm 34w 0d 98% Artemio EFW 2,136 g 32w 6d 68% Hadlock EFW discordance 6.1 % EFW (lb) 4 lb EFW (oz) 11 oz EFW by: Hadlock (HC-AC-FL) Extended Gas Specialist 5.4 mm Extremities / Bony Struc FL / HC 0.22 Other Structures FHR 139 bpm Fetus A: Anatomy Lateral ventricles: normal Cavum septi pellucidi: normal Cerebellum: normal Cisterna magna: normal 4-chamber view: normal RVOT view: normal LVOT view: normal 3-vessel view: normal Heart / Thorax Situs: situs solitus (normal) D (more content not included)... MATERNAL MEDICINE 03-02-2025 Progress note Formatting of t his note might be different from the original. DM-Pt doing well. Denies vaginal Bleeding, Leaking fluid, or regular Contractions. Pt reports good movement x 2 . Has skin lesion on right forearm- started as small [place] - now larger about 4.5cm Physical Exam: Gen: female in no apparent distress Abd: soft, Gravid. Non tender to palpation. See flow sheet Right forearm- 4.5cm lesion with dark perimeter clearer center?? Ring worm @ 32.2 weeks Assessment & Plan Dichorionic diamniotic twin in third trimester ([facility]) NSTs 36 weeks Continue growth Q4 weeks Orders: NON-STRESS TEST; Standing Obesity affecting in third trimester, unspecified obesity type ([facility]) Growth us today pending NSTs 36 weeks Orders: NON-STRESS TEST; Standing Anemia complicating , third trimester ([facility]) Will repeat cbc in 2 weeks Has been taking iron for only 2 weeks or so. Orders: COMPLETE BLOOD COUNT; Future Supervision of high risk in third trimester ([facility]) Skin rash Discussed PCP, urgent care or derm to have it evaluated Ok to continue hydrocortisone topically 32 weeks gestation of ([facility]) Marisol Escalera MD [facility] 03-02-2025 Miscellaneous Notes DM-Pt doing well. Denies vaginal Bleeding, Leaking fluid, or regular Contractions. Pt reports good movement x 2 . Has skin lesion on right forearm- started as small [place] - now larger about 4.5cm Physical Exam: Gen: female in no apparent distress Abd: soft, Gravid. Non tender to palpation. See flow sheet Right forearm- 4.5cm lesion with dark perimeter clearer center?? Ring worm @ 32.2 weeks Assessment & Plan Dichorionic diamniotic twin in third trimester ([facility]) NSTs 36 weeks Continue growth Q4 weeks Orders: NON-STRESS TEST; Standing Obesity affecting in third trimester, unspecified obesity type ([facility]) Growth us today pending NSTs 36 weeks Orders: NON-STRESS TEST; Standing Anemia complicating , third trimester (HCC) Will repeat cbc in 2 weeks Has been taking iron for only 2 weeks or so. Orders: COMPLETE BLOOD COUNT; Future Supervision of high risk in third trimester ([facility]) Skin rash Discussed PCP, urgent care or derm to have it evaluated Ok to continue hydrocortisone topically 32 weeks gestation of ([facility]) Marisol Escalera MD documented in this encounter [facility] 03-02-2025 Instructions Mar Weiner MA - 03/02/2025 8:59 AM EDT SEQUENTIAL SCREENINGS The [facility] offers sequential screenings for women who are interested in screenings for chromosomal abnormalities and certain defects during a . The sequential screen combines ultrasound and blood tests to determine the risk of chromosomal abnormalities, including Down's Syndrome (Trisomy 21) and Trisomy 18, as well as open neural tube defects including spina bifida. Ultrasound examination is performed between 11 weeks and 13 weeks gestational age. Blood tests are drawn after the ultrasound and again later in the between 15 and 21 weeks gestational age. Please let your physician know if you are interested in this testing. It will require an appointment with our windshield technician. This is not an ultrasound performed by a physician in our office during a routine visit. SIGNS AND SYMPTOMS OF LABOR 1. Contractions every 10 minutes or more often 2. Clear, pink, or brownish fluid (water) leaking from vagina 3. Feeling that baby is pushing down, pressure 4. Low, dull backache 5. Cramps that feel like a period 6. Cramps with or without diarrhea If you notice any of the above symptoms, contact our office at [phone] and ask to speak with a nurse. After hours, you can call doctors registry at [phone] OR call [facility] at [phone] and ask to have the doctor evaluation advisor paged. If you consider this an emergency, dial 9-0 or go to your nearest emergency department. NEED HELP? Are you dealing with a violent or abusive relationship? Are you a victim of rape or sexual assult? Call [facility] ([place]) 24 hour Crisis Hotline: 810.545.8370 or 216-388-0554. MANUAL Your Guide to a Healthy manual is now on-line. Visit [email or web address] to download your free copy documented in this encounter [facility] 02-23-2025 Note HNO ID: [id number] Author: HIREN JORDAN MD Service: ? Author Type: Physician Type: Progress Notes Filed: 02/23/2025 12:48 Note Text: SW- No ctx, vb, lof. Having lower pelvic pain. Good FM x 2. Patient reports pubic bone pain. 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 Serial growth US - RTO 2 wk Hiren Jordan DO [facility] 02-13-2025 Progress note Formatting of t his note might be different from the original. KJ - S: Louceline denies LOF, contractions or vaginal bleeding. O: 29w6d, see flow sheet SENSITIVE EXAM: Sensitive exam not performed. A/P: Assessment & Plan 29 weeks gestation of (HCC) Obesity affecting in third trimester, unspecified obesity type (HCC) Dichorionic diamniotic twin in third trimester (HCC) TAUS shows active fetus x2 with FCA Repeat growth US in 2 & 6 weeks Need for vaccination Tdap today Reviewed PTL & FM precautions Fern Mary MD [facility] 02-13-2025 Miscellaneous Notes KJ - S: Louceline denies LOF, contractions or vaginal bleeding. O: 29w6d, see flow sheet SENSITIVE EXAM: Sensitive exam not performed. A/P: Assessment & Plan 29 weeks gestation of (HCC) Obesity affecting in third trimester, unspecified obesity type (HCC) Dichorionic diamniotic twin in third trimester (HCC) TAUS shows active fetus x2 with FCA Repeat growth US in 2 & 6 weeks Need for vaccination Tdap today Reviewed PTL & FM precautions Fern Mary MD documented in this encounter [facility] 02-13-2025 Note HNO ID: [id number] Author: TASH ROMERO MA Service: ? Author Type: Immunology Teacher Type: Progress Notes Filed: 02/13/2025 09:45 Note Text: Patient identified by name and date of . Karissa Ariza presents today for a vaccination of Tdap. Patient denies an allergy to latex: yes Patient denies a severe (life-threatening) allergy to a previous dose of Tdap, DTP, DTaP, DT or Td vaccine. Yes Patient denies history of epilepsy or neurological problems: Yes Patient is afebrile and denies being moderately or severely ill: Yes Patient denies history of Guillain-[place] Syndrome (a severe paralytic illness): Yes Tdap Adacel injection was given without incident. See immunizations for details of immunizations administered today. VIS sheet provided: Yes Provider Fern Mary MD was present in office at time of injection. Tash Romero MA [facility] 02-13-2025 History of Present illness Narrative Patient identified by name and date of . Karissa Ariza presents today for a vaccination of Tdap. Patient denies an allergy to latex: yes Patient denies a severe (life-threatening) allergy to a previous dose of Tdap, DTP, DTaP, DT or Td vaccine. Yes Patient denies history of epilepsy or neurological problems: Yes Patient is afebrile and denies being moderately or severely ill: Yes Patient denies history of Guillain-[place] Syndrome (a severe paralytic illness): Yes Tdap Adacel injection was given without incident. See immunizations for details of immunizations administered today. VIS sheet provided: Yes Provider Fern Mary MD was present in office at time of injection. Tash Romero MA documented in this encounter [facility] 02-13-2025 Instructions Tash Romero MA - 02/13/2025 8:57 AM EDT SEQUENTIAL SCREENINGS The [facility] offers sequential screenings for women who are interested in screenings for chromosomal abnormalities and certain defects during a . The sequential screen combines ultrasound and blood tests to determine the risk of chromosomal abnormalities, including Down's Syndrome (Trisomy 21) and Trisomy 18, as well as open neural tube defects including spina bifida. Ultrasound examination is performed between 11 weeks and 13 weeks gestational age. Blood tests are drawn after the ultrasound and again later in the between 15 and 21 weeks gestational age. Please let your physician know if you are interested in this testing. It will require an appointment with our windshield technician. This is not an ultrasound performed by a physician in our office during a routine visit. SIGNS AND SYMPTOMS OF LABOR 1. Contractions every 10 minutes or more often 2. Clear, pink, or brownish fluid (water) leaking from vagina 3. Feeling that baby is pushing down, pressure 4. Low, dull backache 5. Cramps that feel like a period 6. Cramps with or without diarrhea If you notice any of the above symptoms, contact our office at [phone] and ask to speak with a nurse. After hours, you can call doctors registry at [phone] OR call [facility] at [phone] and ask to have the doctor evaluation advisor paged. If you consider this an emergency, dial 9-1-8 or go to your nearest emergency department. NEED HELP? Are you dealing with a violent or abusive relationship? Are you a victim of rape or sexual assult? Call [facility] ([place]) 24 hour Crisis Hotline: 202.486.8473 or 430-911-7214. MANUAL Your Guide to a Healthy manual is now on-line. Visit [email or web address] to download your free copy documented in this encounter [facility] 01-30-2025 Progress note Formatting of t his note might be different from the original. ADRIANS: Karissa Ariza is a 34 year old female who presents at 27w6d with JACQUE:04/25/2025, by Last Menstrual Period for a routine visit. Denies headache, visual changes, chest pain, shortness of breath, vaginal bleeding, leakage of fluid, or dysuria. Feeling well, no complaints. O: See flow sheet Gen: No apparent distress Abd: Gravid, nontender Cepahlic/Cephalic A cephalic 70th percentile B cephalic 62 percentile ASSESSMENT/PLAN: 1. Supervision of high risk in second trimester - Continue PNV and ASA - 1 hour GCT, CBC, and RPR today - B positive - TDAP vaccine declines today, handout given, may get at future visit. - LARC form reviewed and signed. Patient declines - Depression screen negative - Opioid screen negative - plan form discussed and given to patient. Reviewed IOL at 38 wk and agreeable 2. 27 weeks gestation of 3. Dichorionic diamniotic twin in second trimester -Growth US every 4 weeks -NST weekly at 36 weeks -IOL at 38 wk if remains uncomplicated 4. Obesity affecting in second trimester, unspecified obesity type -Pre BMI 35 -Plan for 32 week growth q 4 weeks. -Weekly NSTs at 36 weeks. 5. Heartburn during in first trimester -Continues Pepcid 6. Sickle cell trait PTL precautions reviewed and when to call RTO in 2 weeks Cheyenne Sinclair APRN.CNM [facility] 01-30-2025 Miscellaneous Notes SO-S: Karissa Ariza is a 34 year old female who presents at 27w6d with JACQUE:04/25/2025, by Last Menstrual Period for a routine visit. Denies headache, visual changes, chest pain, shortness of breath, vaginal bleeding, leakage of fluid, or dysuria. Feeling well, no complaints. O: See flow sheet Gen: No apparent distress Abd: Gravid, nontender Cepahlic/Cephalic A cephalic 70th percentile B cephalic 62 percentile ASSESSMENT/PLAN: 1. Supervision of high risk in second trimester - Continue PNV and ASA - 1 hour GCT, CBC, and RPR today - B positive - TDAP vaccine declines today, handout given, may get at future visit. - LARC form reviewed and signed. Patient declines - Depression screen negative - Opioid screen negative - plan form discussed and given to patient. Reviewed IOL at 38 wk and agreeable 2. 27 weeks gestation of 3. Dichorionic diamniotic twin in second trimester -Growth US every 4 weeks -NST weekly at 36 weeks -IOL at 38 wk if remains uncomplicated 4. Obesity affecting in second trimester, unspecified obesity type -Pre BMI 35 -Plan for 32 week growth q 4 weeks. -Weekly NSTs at 36 weeks. 5. Heartburn during in first trimester -Continues Pepcid 6. Sickle cell trait PTL precautions reviewed and when to call RTO in 2 weeks Cheyenne Sinclair APRN.CNM documented in this encounter [facility] 01-30-2025 Note Indication Evaluation of growth Di-Di twins, Maternal obesity, BMI >35, Sickle cell trait Impression Live, dichorionic/diamniotic intrauterine . - The biometry is consistent with the assigned gestational dating for both fetuses. - The EFW is 1271 g grams, at the 70%. AC is at the 45% for Fetus A. - The EFW is 1237 g grams, at the 62% percentile. AC is at the 67% percentile for Fetus B. - Normal amniotic fluid volume with an MVP of 2.5 cm for Fetus A and 6.2 cm for Fetus B. - The placenta is anterior, fundal for Fetus A and posterior, fundal for Fetus B. - No malformations visualized on a limited survey as detailed below. Recommendations Growth in four weeks Maternal Assessment Height 173 cm Height (ft) 5 ft Height (in) 8 in Physical Exam Initial weight (lb) 232 lb Initial BMI 35.28 kg/m Maternal assessment other: 2 Para 1 REMOTE READ Method Transabdominal ultrasound examination Twin . Number of fetuses: 2. Dichorionic-diamniotic Dating LMP on: 07/19/2024 GA by LMP 27 w + 6 d JACQUE by LMP: 04/25/2025 GA by prior assessment 27 w + 6 d JACQUE by prior assessment: 04/25/2025 Ultrasound examination on: 01/30/2025 GA by U/S based upon: AC, BPD, Femur, HC GA by U/S 28 w + 1 d JACQUE by U/S: 04/23/2025 GA by U/S based upon (Fetus 2): AC, BPD, Femur, HC GA by U/S (Fetus 2) 28 w + 1 d JACQUE by U/S (Fetus 2): 04/23/2025 Assigned: based on stated JACQUE, selected on 01/30/2025 Assigned GA 27 w + 6 d Assigned JACQUE: 04/25/2025 Fetus A: General Evaluation Cardiac activity present. FHR 151 bpm. movements: present. Presentation: cephalic, maternal left Placenta: Placental site: anterior, fundal Umbilical cord: 3 vessel cord Amniotic fluid: Amount of AF: normal amount. MVP 2.5 cm Fetus B: General Evaluation Cardiac activity present. FHR 143 bpm. movements: present. Presentation: cephalic, maternal right Placenta: Placental site: posterior, fundal Umbilical cord: 3 vessel cord Amniotic fluid: Amount of AF: normal amount. MVP 6.2 cm Fetus A: Growth Overview Exam date GA BPD (mm) HC (mm) AC (mm) FL (mm) HL (mm) EFW (g) 12/05/2024w 6d 45.8 49% 168.1 37% 143.1 38% 32.9 78% 31.1 72% 315 43% 01/02/2025w 6d 58.6 48% 212.6 33% 189 35% 43.6 79% 633 40% 01/30/2025w 6d 66.1 8% 255.8 37% 236.5 45% 57.9 >99% 1271 70% Fetus B: Growth Overview Exam date GA BPD (mm) HC (mm) AC (mm) FL (mm) HL (mm) EFW (g) 12/05/2024w 6d 44.4 32% 166.9 34% 143.5 39% 34.1 88% 33.4 94% 325 52% 01/02/2025w 6d 54.7 9% 208.3 23% 194.6 51% 45.4 94% 677 60% 01/30/2025 27w 6d 68.3 26% 257.9 43% 243.9 67% 53.8 81% 1237 62% Fetus A: Biometry Standard BPD 66.1 mm 26w 5d 8% Hadlock OFD 92.7 mm 27w 3d 51% Nicolaides HC 255.8 mm 27w 3d 37% Artemio AC 236.5 mm 28w 0d 45% Hadlock Femur 57.9 mm 30w 2d >99% Artemio EFW 1,271 g 28w 3d 70% Hadlock EFW discordance 2.6 % EFW (lb) 2 lb EFW (oz) 13 oz EFW by: Hadlock (HC-AC-FL) Extremities / Bony Struc FL / HC 0.23 Other Structures FHR 151 bpm Fetus B: Biometry Standard BPD 68.3 mm 27w 3d 26% Hadlock OFD 91.6 mm 27w 1d 41% Nicolaides HC 257.9 mm 27w 4d 43% Artemio AC 243.9 mm 28w 5d 67% Hadlock Femur 53.8 mm 28w 4d 81% Artemio EFW 1,237 g 28w 1d 62% Hadlock EFW discordance 2.6 % EFW (lb) 2 lb EFW (oz) 12 oz EFW by: Hadlock (HC-AC-FL) Extended Gas Specialist 4.1 mm Extremities / Bony Struc FL / HC 0.21 Other Structures FHR 143 bpm Fetus A: Anatomy Lateral ventricles: suboptimally visualized Cavum septi pellucidi: normal Cerebellum: normal Cisterna magna: normal 4-chamber view: suboptimally visualized RVOT view: normal LVOT view: suboptimally visualized 3-vessel view: suboptimally visualized Heart / Thorax Situs: situs solitus (normal) Diaphragm: normal Stomach: normal Kidneys: normal Bladder: normal sex: female Wants to know sex: yes Fetus B: Anatomy Lateral ventricles: normal Cavum septi pellucidi: normal Cerebellum: normal Cisterna magna: normal 4-chamber view: normal RVOT view: normal LVOT view: normal 3-vessel view: normal Heart / Thorax Situs: situs solitus (normal) Diaphragm: normal Stomach: norm (more content not included)... MATERNAL MEDICINE 01-30-2025 Instructions Nidhi Fontana MA - 01/30/2025 8:36 AM EDT SEQUENTIAL SCREENINGS The [facility] offers sequential screenings for women who are interested in screenings for chromosomal abnormalities and certain defects during a . The sequential screen combines ultrasound and blood tests to determine the risk of chromosomal abnormalities, including Down's Syndrome (Trisomy 21) and Trisomy 18, as well as open neural tube defects including spina bifida. Ultrasound examination is performed between 11 weeks and 13 weeks gestational age. Blood tests are drawn after the ultrasound and again later in the between 15 and 21 weeks gestational age. Please let your physician know if you are interested in this testing. It will require an appointment with our windshield technician. This is not an ultrasound performed by a physician in our office during a routine visit. SIGNS AND SYMPTOMS OF LABOR 1. Contractions every 10 minutes or more often 2. Clear, pink, or brownish fluid (water) leaking from vagina 3. Feeling that baby is pushing down, pressure 4. Low, dull backache 5. Cramps that feel like a period 6. Cramps with or without diarrhea If you notice any of the above symptoms, contact our office at [phone] and ask to speak with a nurse. After hours, you can call doctors registry at [phone] OR call [facility] at [phone] and ask to have the doctor evaluation advisor paged. If you consider this an emergency, dial 0-1-4 or go to your nearest emergency department. NEED HELP? Are you dealing with a violent or abusive relationship? Are you a victim of rape or sexual assult? Call [facility] ([facility] 24 hour Crisis Hotline: 354.740.8577 or 422-314-8178. MANUAL Your Guide to a Healthy manual is now on-line. Visit [email or web address] to download your free copy documented in this encounter [facility] 01-02-2025 Progress note Formatting of t his note might be different from the original. RR- VB No. LOF No. CTXS No. Movement: present. Other c/o: jheartburn relieved w/ pepcid Medication list reviewed. SENSITIVE EXAM: Sensitive exam not performed. Physical Exam See Flow Sheet Gen: no accute distress, well appearing A/P 23w6d Estimated Date of Delivery: 04/25/25 Assessment & Plan Dichorionic diamniotic twin in second trimester (HCC) Orders: GESTATIONAL GLUCOSE SCREEN, 1-HOUR, 50 GRAM, NON-FASTING; Future SYPHILIS TREPONEMAL W/REFLEX; Future ANEMIA REFLEX PANEL; Future Supervision of high risk in second trimester ([facility]) Orders: GESTATIONAL GLUCOSE SCREEN, 1-HOUR, 50 GRAM, NON-FASTING; Future SYPHILIS TREPONEMAL W/REFLEX; Future ANEMIA REFLEX PANEL; Future Screening for diabetes mellitus Orders: GESTATIONAL GLUCOSE SCREEN, 1-HOUR, 50 GRAM, NON-FASTING; Future SYPHILIS TREPONEMAL W/REFLEX; Future ANEMIA REFLEX PANEL; Future growth q 4 weeks cont asa and PNV Yasmeen Edmond M.D. [facility] 01-02-2025 Miscellaneous Notes RR- VB No. LOF No. CTXS No. Movement: present. Other c/o: jheartburn relieved w/ pepcid Medication list reviewed. SENSITIVE EXAM: Sensitive exam not performed. Physical Exam See Flow Sheet Gen: no accute distress, well appearing A/P 23w6d Estimated Date of Delivery: 04/25/25 Assessment & Plan Dichorionic diamniotic twin in second trimester ([facility]) Orders: GESTATIONAL GLUCOSE SCREEN, 1-HOUR, 50 GRAM, NON-FASTING; Future SYPHILIS TREPONEMAL W/REFLEX; Future ANEMIA REFLEX PANEL; Future Supervision of high risk in second trimester ([facility]) Orders: GESTATIONAL GLUCOSE SCREEN, 1-HOUR, 50 GRAM, NON-FASTING; Future SYPHILIS TREPONEMAL W/REFLEX; Future ANEMIA REFLEX PANEL; Future Screening for diabetes mellitus Orders: GESTATIONAL GLUCOSE SCREEN, 1-HOUR, 50 GRAM, NON-FASTING; Future SYPHILIS TREPONEMAL W/REFLEX; Future ANEMIA REFLEX PANEL; Future growth q 4 weeks cont asa and PNV Yasmeen Edmond M.D. documented in this encounter [facility] 01-02-2025 Instructions Regine, Mar, MA - 01/02/2025 3:31 PM EDT SEQUENTIAL SCREENINGS The [facility] offers sequential screenings for women who are interested in screenings for chromosomal abnormalities and certain defects during a . The sequential screen combines ultrasound and blood tests to determine the risk of chromosomal abnormalities, including Down's Syndrome (Trisomy 21) and Trisomy 18, as well as open neural tube defects including spina bifida. Ultrasound examination is performed between 11 weeks and 13 weeks gestational age. Blood tests are drawn after the ultrasound and again later in the between 15 and 21 weeks gestational age. Please let your physician know if you are interested in this testing. It will require an appointment with our windshield technician. This is not an ultrasound performed by a physician in our office during a routine visit. SIGNS AND SYMPTOMS OF LABOR 1. Contractions every 10 minutes or more often 2. Clear, pink, or brownish fluid (water) leaking from vagina 3. Feeling that baby is pushing down, pressure 4. Low, dull backache 5. Cramps that feel like a period 6. Cramps with or without diarrhea If you notice any of the above symptoms, contact our office at [phone] and ask to speak with a nurse. After hours, you can call doctors registry at [phone] OR call [facility] at [phone] and ask to have the doctor evaluation advisor paged. If you consider this an emergency, dial 9-1-5 or go to your nearest emergency department. NEED HELP? Are you dealing with a violent or abusive relationship? Are you a victim of rape or sexual assult? Call [facility] [place] ([facility] 24 hour Crisis Hotline: 502.100.3659 or 518-050-6435. MANUAL Your Guide to a Healthy manual is now on-line. Visit [email or web address] to download your free copy documented in this encounter [facility] 01-02-2025 Note Indication Evaluation of growth Di-Di twins, Sickle cell disease, Maternal obesity, BMI >35 Impression Live, dichorionic/diamniotic intrauterine . - The biometry is consistent with the assigned gestational dating for both fetuses. - The EFW is 633 g grams, at the 40%. AC is at the 35% for Fetus A. - The EFW is 677 g grams, at the 60% percentile. AC is at the 51% percentile for Fetus B. - Normal amniotic fluid volume with an MVP of 4.7 cm for Fetus A and 6.2 cm for Fetus B. - The placenta is anterior, fundal for Fetus A and posterior, fundal for Fetus B. - No malformations visualized on a limited survey as detailed below. Recommendations Monthly growth ultrasound Maternal Assessment Height 173 cm Height (ft) 5 ft Height (in) 8 in Physical Exam Initial weight (lb) 232 lb Initial BMI 35.28 kg/m Maternal assessment other: 2 Para 1 Method Transabdominal ultrasound examination Twin . Number of fetuses: 2. Dichorionic-diamniotic Dating LMP on: 07/19/2024 GA by LMP 23 w + 6 d JACQUE by LMP: 04/25/2025 GA by prior assessment 23 w + 6 d JACQUE by prior assessment: 04/25/2025 Ultrasound examination on: 01/02/2025 GA by U/S based upon: AC, BPD, Femur, HC GA by U/S 23 w + 6 d JACQUE by U/S: 04/25/2025 GA by U/S based upon (Fetus 2): AC, BPD, Femur, HC GA by U/S (Fetus 2) 23 w + 5 d JACQUE by U/S (Fetus 2): 04/26/2025 Assigned: based on stated JACQUE, selected on 01/02/2025 Assigned GA 23 w + 6 d Assigned JACQUE: 04/25/2025 Fetus A: General Evaluation Cardiac activity present. FHR 144 bpm. movements: present. Presentation: cephalic, maternal left Placenta: Placental site: anterior, fundal Umbilical cord: 3 vessel cord Amniotic fluid: Amount of AF: normal amount. MVP 4.7 cm Fetus B: General Evaluation Cardiac activity present. FHR 145 bpm. movements: present. Presentation: cephalic, maternal right Placenta: Placental site: posterior, fundal Umbilical cord: 3 vessel cord Amniotic fluid: Amount of AF: normal amount. MVP 6.2 cm Fetus A: Growth Overview Exam date GA BPD (mm) HC (mm) AC (mm) FL (mm) HL (mm) EFW (g) 12/05/2024 19w 6d 45.8 49% 168.1 37% 143.1 38% 32.9 78% 31.1 72% 315 43% 01/02/2025 23w 6d 58.6 48% 212.6 33% 189 35% 43.6 79% 633 40% Fetus B: Growth Overview Exam date GA BPD (mm) HC (mm) AC (mm) FL (mm) HL (mm) EFW (g) 12/05/2024 19w 6d 44.4 32% 166.9 34% 143.5 39% 34.1 88% 33.4 94% 325 52% 01/02/2025 23w 6d 54.7 9% 208.3 23% 194.6 51% 45.4 94% 677 60% Fetus A: Biometry Standard BPD 58.6 mm 24w 0d 48% Hadlock OFD 74.0 mm 22w 5d 24% Nicolaides HC 212.6 mm 23w 2d 33% Artemio AC 189.0 mm 23w 5d 35% Hadlock Femur 43.6 mm 24w 3d 79% Artemio EFW 633 g 23w 4d 40% Hadlock EFW discordance 6.5 % EFW (lb) 1 lb EFW (oz) 6 oz EFW by: Hadlock (HC-AC-FL) Extended Gas Specialist 3.8 mm Extremities / Bony Struc FL / HC 0.21 Other Structures FHR 144 bpm Fetus B: Biometry Standard BPD 54.7 mm 22w 5d 9% Hadlock OFD 74.3 mm 22w 6d 27% Nicolaides HC 208.3 mm 22w 6d 23% Artemio AC 194.6 mm 24w 1d 51% Hadlock Femur 45.4 mm 25w 1d 94% Artemio EFW 677 g 24w 0d 60% Hadlock EFW discordance 6.5 % EFW (lb) 1 lb EFW (oz) 8 oz EFW by: Hadlock (HC-AC-FL) Extended Gas Specialist 4.0 mm Extremities / Bony Struc FL / HC 0.22 Other Structures FHR 145 bpm Fetus A: Anatomy Lateral ventricles: normal Cavum septi pellucidi: normal Cerebellum: normal Cisterna magna: normal 4-chamber view: normal RVOT view: normal LVOT view: normal 3-vessel view: normal Heart / Thorax Situs: situs solitus (normal) Diaphragm: normal Stomach: normal Kidneys: normal Bladder: normal sex: female Wants to know sex: yes Fetus B: Anatomy Lateral ventricles: normal Cavum septi pellucidi: normal Cerebellum: normal Cisterna magna: normal 4-chamber view: normal RVOT view: normal LVOT view: normal 3-vessel view: normal Heart / Thorax Situs: situs solitus (normal) Diaphragm: normal Stomach: normal Kidneys: normal Bladder: normal sex: female Wants to know sex: yes Maternal Structures Uterus / Cervix Approach: Transabdominal Cervical length 37.3 mm Performed By: Hetal Berry RDMS, RVT Read By: Noemi Brush M.D. [facility] 12-05-2024 Progress note Formatting of t his note might be different from the original. KJ - S: Louceline denies LOF, contractions or vaginal bleeding. O: 19w6d, see flow sheet SENSITIVE EXAM: Sensitive exam not performed. A/P: Assessment & Plan 19 weeks gestation of Obesity affecting in second trimester, unspecified obesity type Dichorionic diamniotic twin in second trimester Orders: OBSTETRIC ULTRASOUND WHI; Standing Serial growth US ordered Supervision of high risk in second trimester Fern Mary MD [facility] 12-05-2024 Miscellaneous Notes KJ - S: Louceline denies LOF, contractions or vaginal bleeding. O: 19w6d, see flow sheet SENSITIVE EXAM: Sensitive exam not performed. A/P: Assessment & Plan 19 weeks gestation of Obesity affecting in second trimester, unspecified obesity type Dichorionic diamniotic twin in second trimester Orders: OBSTETRIC ULTRASOUND WHI; Standing Serial growth US ordered Supervision of high risk in second trimester Fern Mary MD documented in this encounter [facility] 12-05-2024 Instructions Nidhi Fontana MA - 12/05/2024 2:55 PM EST SEQUENTIAL SCREENINGS The [facility] offers sequential screenings for women who are interested in screenings for chromosomal abnormalities and certain defects during a . The sequential screen combines ultrasound and blood tests to determine the risk of chromosomal abnormalities, including Down's Syndrome (Trisomy 21) and Trisomy 18, as well as open neural tube defects including spina bifida. Ultrasound examination is performed between 11 weeks and 13 weeks gestational age. Blood tests are drawn after the ultrasound and again later in the between 15 and 21 weeks gestational age. Please let your physician know if you are interested in this testing. It will require an appointment with our windshield technician. This is not an ultrasound performed by a physician in our office during a routine visit. SIGNS AND SYMPTOMS OF LABOR 1. Contractions every 10 minutes or more often 2. Clear, pink, or brownish fluid (water) leaking from vagina 3. Feeling that baby is pushing down, pressure 4. Low, dull backache 5. Cramps that feel like a period 6. Cramps with or without diarrhea If you notice any of the above symptoms, contact our office at [phone] and ask to speak with a nurse. After hours, you can call doctors registry at [phone] OR call [facility] at [phone] and ask to have the doctor evaluation advisor paged. If you consider this an emergency, dial 8-6-9 or go to your nearest emergency department. NEED HELP? Are you dealing with a violent or abusive relationship? Are you a victim of rape or sexual assult? Call [facility] ([place]) 24 hour Crisis Hotline: 510.860.3888 or 542-393-1776. MANUAL Your Guide to a Healthy manual is now on-line. Visit [email or web address] to download your free copy documented in this encounter [facility] 12-05-2024 Note HNO ID: [id number] Author: NOEMI BRUSH MD Service: ? Author Type: Physician Type: Progress Notes Filed: 12/05/2024 15:14 Note Text: Obstetrics AND Gynecology [place] Maternal Medicine Outpatient Visit Type: Maternal Medicine Consult Outpatient Visit Date: December 05, 2024 Service Time: 2:14 PM Requesting Provider: Yancy Rodriguez History of Present Illness: Karissa Ariza is 34 year old at 19w6d presenting for consultation with Maternal- Medicine at [facility] in the setting of dichorionic-diamniotic twin . History Review Obstetric History T1 L1 SAB0 IAB0 Ectopic0 Multiple0 Live Births1 Name of Baby 1: Lizzy Date: 11/30/21 GA: 40w4d Type: Vaginal, Spontaneous Apgar1: Not recorded Apgar5: Not recorded Living: Living Name of Baby 2: Not recorded Date: Not recorded GA: Not recorded Type: Not recorded Apgar1: Not recorded Apgar5: Not recorded Living: Not recorded PAST MEDICAL HISTORY Diagnosis Date Cervical high risk human papillomavirus (HPV) DNA test positive 01/2024 Chlamydial infection 01/14/2024 01/14/24 Treated with Doxycyline. Constipation during in first trimester 09/13/2024 September 13, 2024 Discussed Colace and increased hydration. Yancy Rodriguez, DIGESTER HAND.OPERATIONS ACCOUNTANT Depression with anxiety Dyslipidemia 2023 Gastroduodenal ulcer 2009 treated with Nexium, H pylori GERD (gastroesophageal reflux disease) H/O sickle cell anemia Hiatal hernia Nausea and vomiting during 09/13/2024 September 13, 2024 Vitamin B6 and Unisom doses reviewed. She occasionally vomits up blood. Throwing up 3-4x per day, each time she eats. Rx sent for Zofran. Reviewed first trimester risks and written info provided. To call if not improved by end of this week. 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 aspirin, enteric coated (ECOTRIN LOW STRENGTH) 81 mg EC tablet Take 1 tablet by mouth once daily. famotidine (PEPCID) 20 mg tablet Take 1 tablet by mouth two times a day. ondansetron (ZOFRAN) 4 mg tablet Take 1 tablet by mouth every 8 hours as needed for nausea/vomiting. ALLERGIES No Known Allergies FAMILY HISTORY Problem Relation Age of Onset Arthritis Mother Obesity Mother No Known Problems Father No Known Problems Sister No Known Problems Brother Sickle Cell Anemia Brother other (chidbirth) Maternal Grandmother after childbirth other (lung disease) Maternal Grandfather No Known Problems Paternal Grandmother No Known Problems Paternal Grandfather Social History Tobacco Use Smoking status: Never Smokeless tobacco: Never Vaping Use Vaping status: Never Used Substance Use Topics Alcohol use: Never Drug use: Never Review of Systems: The patient denies bleeding, leakage of fluid, contractions, back pain, nausea, heartburn, headache, SOB, chest pain, and palpitations. There is no height or weight on file to calculate BMI. Physical Exam: Gen: Well appearing, in no acute distress. Lungs: Non-labored breathing on room air Abd: Abdomen soft, non-tender during US exam SVE: Deferred SSE:Deferred Legs: Moving spontaneously, non tender, no significant bilateral edema. Labs: Most recent labs reviewed. Labs within 120 days: WBC Date Value Ref Range Status 10/13/2024 6.49 3.70 - 11.00 k/uL Final Hemoglobin Date Value Ref Range Status 10/13/2024 11.4 (L) 11.5 - 15.5 g/dL Final Hematocrit Date Value Ref Range Status 10/13/2024 33.2 (L) 36.0 - 46.0 % Final Platelet Count Date Value Ref Range Status 10/13/2024 320 150 - 400 k/uL Final Protein, Total Date Value Ref Range Status 10/13/2024 6.7 6.3 - 8.0 g/dL Final Albumin Date Value Ref Range Status 10/13/2024 3.9 3.9 - 4.9 g/dL Final Calcium, Total Date Value Ref Range Status 10/13/2024 9.1 8.5 - 10.2 mg/dL Final Bilirubin, Total Date Value Ref Range Status 10/13/2024 0.5 0.2 - 1.3 mg/dL Final Alkaline Phosphatase Date Value Ref Range Status 10/13/2024 60 34 - 123 U/L Final AST Date Value Ref Range Status 10/13/2024 10 (L) 13 - 35 U/L Final ALT Date Value Ref Range Status 10/13/2024 9 7 - 38 U/L Final Glucose Date Value Ref Range Status 10/13/2024 84 74 - 99 mg/dL Final Comment: The [place] Diabetes Association (ADA) provides guidance for cutoff values for fasting glucose and random glucose. The ADA defines fasting as no caloric intake for at least 8 hours. Fasting plasma glucose results between 100 to 125 mg/dL indicate increased risk for diabetes (prediabetes). Fasting (more content not included)... [facility] History of Present illness Narrative Obstetrics & Gynecology [place] Maternal Medicine Outpatient Visit Type: Maternal Medicine Consult Outpatient Visit Date: December 05, 2024 Service Time: 2:14 PM Requesting Provider: Yancy Rodriguez History of Present Illness: Karissa Ariza is 34 year old at 19w6d presenting for consultation with Maternal- Medicine at [facility] in the setting of dichorionic-diamniotic twin . History Review Obstetric History T1 L1 SAB0 IAB0 Ectopic0 Multiple0 Live Births1 Name of Baby 1: Date: 11/30/21 GA: 40w4d Type: Vaginal, Spontaneous Apgar1: Not recorded Apgar5: Not recorded Living: Living Name of Baby 2: Not recorded Date: Not recorded GA: Not recorded Type: Not recorded Apgar1: Not recorded Apgar5: Not recorded Living: Not recorded PAST MEDICAL HISTORY Diagnosis Date Cervical high risk human papillomavirus (HPV) DNA test positive 01/2024 Chlamydial infection 01/14/2024 01/14/24 Treated with Doxycyline. Constipation during in first trimester 09/13/2024 September 13, 2024 Discussed Colace and increased hydration. Yancy Rodriguez, DIGESTER HAND.OPERATIONS ACCOUNTANT Depression with anxiety Dyslipidemia 2023 Gastroduodenal ulcer 2009 treated with Nexium, H pylori GERD (gastroesophageal reflux disease) H/O sickle cell anemia Hiatal hernia Nausea and vomiting during 09/13/2024 September 13, 2024 Vitamin B6 and Unisom doses reviewed. She occasionally vomits up blood. Throwing up 3-4x per day, each time she eats. Rx sent for Zofran. Reviewed first trimester risks and written info provided. To call if not improved by end of this week. 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 aspirin, enteric coated (ECOTRIN LOW STRENGTH) 81 mg EC tablet Take 1 tablet by mouth once daily. famotidine (PEPCID) 20 mg tablet Take 1 tablet by mouth two times a day. ondansetron (ZOFRAN) 4 mg tablet Take 1 tablet by mouth every 8 hours as needed for nausea/vomiting. ALLERGIES No Known Allergies FAMILY HISTORY Problem Relation Age of Onset Arthritis Mother Obesity Mother No Known Problems Father No Known Problems Sister No Known Problems Brother Sickle Cell Anemia Brother other (chidbirth) Maternal Grandmother after childbirth other (lung disease) Maternal Grandfather No Known Problems Paternal Grandmother No Known Problems Paternal Grandfather Social History Tobacco Use Smoking status: Never Smokeless tobacco: Never Vaping Use Vaping status: Never Used Substance Use Topics Alcohol use: Never Drug use: Never Review of Systems: The patient denies bleeding, leakage of fluid, contractions, back pain, nausea, heartburn, headache, SOB, chest pain, and palpitations. There is no height or weight on file to calculate BMI. Physical Exam: Gen: Well appearing, in no acute distress. Lungs: Non-labored breathing on room air Abd: Abdomen soft, non-tender during US exam SVE: Deferred SSE:Deferred Legs: Moving spontaneously, non tender, no significant bilateral edema. Labs: Most recent labs reviewed. Labs within 120 days: WBC Date Value Ref Range Status 10/13/2024 6.49 3.70 - 11.00 k/uL Final Hemoglobin Date Value Ref Range Status 10/13/2024 11.4 (L) 11.5 - 15.5 g/dL Final Hematocrit Date Value Ref Range Status 10/13/2024 33.2 (L) 36.0 - 46.0 % Final Platelet Count Date Value Ref Range Status 10/13/2024 320 150 - 400 k/uL Final Protein, Total Date Value Ref Range Status 10/13/2024 6.7 6.3 - 8.0 g/dL Final Albumin Date Value Ref Range Status 10/13/2024 3.9 3.9 - 4.9 g/dL Final Calcium, Total Date Value Ref Range Status 10/13/2024 9.1 8.5 - 10.2 mg/dL Final Bilirubin, Total Date Value Ref Range Status 10/13/2024 0.5 0.2 - 1.3 mg/dL Final Alkaline Phosphatase Date Value Ref Range Status 10/13/2024 60 34 - 123 U/L Final AST Date Value Ref Range Status 10/13/2024 10 (L) 13 - 35 U/L Final ALT Date Value Ref Range Status 10/13/2024 9 7 - 38 U/L Final Glucose Date Value Ref Range Status 10/13/2024 84 74 - 99 mg/dL Final Comment: The [place] Diabetes Association (ADA) provides guidance for cutoff values for fasting glucose and random glucose. The ADA defines fasting as no caloric intake for at least 8 hours. Fasting plasma glucose results between 100 to 125 mg/dL indicate increased risk for diabetes (prediabetes). Fasting plasma glucose results greater than or equal to 126 mg/dL meet the criteria for diagnosis of diabetes. In the absence of unequivocal hyperglycemia, results should be confirmed by repeat testing. In a patient with classic symptoms of hyperglycemia or hyperglycemic crisis, random plasma glucose results greater than or equal to 200 mg/dL meet the criteria for diagnosis of diabetes. Reference: Standards of Medical Care in Diabetes 2016, [place] Diabetes Association. Diabetes Care. 2016.39(Suppl 1). BUN Date Value Ref Range Status 10/13/2024 6 (L) 7 - 21 mg/dL Final Creatinine Date Value Ref Range Status 10/13/2024 0.67 0.58 - 0.96 mg/dL Final Sodium Date Value Ref Range Status 10/13/2024 133 (L) 136 - 144 mmol/L Final Potassium Date Value Ref Range Status 10/13/2024 3.7 3.7 - 5.1 mmol/L Final Chloride Date Value Ref Range Status 10/13/2024 104 98 - 107 mmol/L Final CO2 Date Value Ref Range Status 10/13/2024 22 22 - 30 mmol/L Final Anion Gap Date Value Ref Range Status 10/13/2024 7 (L) 8 - 15 mmol/L Final Estimated Glomerular Filtration Rate Date Value Ref Range Status 10/13/2024 118 >=60 mL/min/1.73m Final Comment: Estimated Glomerular Filtration Rate (eGFR) is calculated using the 2020 CKD-EPI creatinine equation. This equation utilizes serum creatinine, sex, and age as parameters. The creatinine assay has traceable calibration to isotope dilution-mass spectrometry. Refer to KDIGO guidelines for clinical interpretation. In patients with unstable renal function, e.g. those with acute kidney injury, the eGFR may not accurately reflect actual GFR. Hemoglobin A1C Date Value Ref Range Status 10/13/2024 4.6 4.3 - 5.6 % Final Comment: A heterozygous hemoglobin variant was possibly detected. Most heterozygous hemoglobin variants do not interfere with this assay. However, interpret this hemoglobin A1c result within the patient's clinical context, as the lifespan of red blood cells may be altered. If identification of a previously unidentified hemoglobin variant is clinically indicated, consider ordering the hemoglobin evaluation cascade test. [place] Diabetes Association guidelines indicate that patients with HgbA1c in the range 5.7-6.4% are at increased risk for development of diabetes, and intervention by lifestyle modification may be beneficial. HgbA1c greater or equal to 6.5% is considered diagnostic of diabetes. Estimated Average Glucose Date Value Ref Range Status 10/13/2024 85 mg/dL Final Comment: eAG: (Estimated average glucose) is a calculated value from HgbA1c and is parts counter representative of the average blood glucose level in the last 2-3 month period. Assessment and Plan: 34 year old at 19w6d with the following issues. Please see my counseling and recommendations documented in problem-based charting below. We reviewed the maternal and risks of dichorionic multiple gestation in detail today. Maternal risks include an increased risk of anemia, preeclampsia, GDM, delivery, PPH. Twin pregnancies are associated with increased risks including SAB, aneuploidy, congenital anomalies, PTL/PTD (~40%), selective FGR, and malpresentation requiring delivery. Due to risk of delivery, outcomes are often largely driven by gestational age at delivery. We discussed serial ultrasounds for growth. We reviewed that in the absence of labor, induction is recommended at/by 38 weeks gestation in uncomplicated dichorionic diamniotic twin pregnancies (ACOG). We also had a detailed discussion regarding mode of delivery in multiple gestations. Reviewed recommendation for trial of labor as long as twin A has vertex presentation and gestational age/EFW and status appropriate. A randomized, controlled trial did not show any benefit to planned delivery of twins. In setting of planned trial of labor for twins, the risk of requiring a delivery for twin B is ~2-3%. Plan to review EFWs and presentation of twins at/near the time of delivery and she will continue to discuss with her OB team. Problem List Items Addressed This Visit Hematology Sickle cell trait (HCC) Overview Twin brother from sickle cell. Patient reports she is known sickle cell trait carrier, FOB had negative carrier screening. 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 States she has issues with side effects with medications and her stomach issues and has never taken medication for long periods. Believes she is doing well off medication. EPDS 6. [place] 1. Mental health resources provided. Denies thoughts of self harm. Declines meds or counseling at this time. Update throughout . Yancy Rodriguez APRN.OPERATIONS ACCOUNTANT Other Obesity affecting in second trimester Overview September 13, 2024 -Pre BMI 35 - Plan for 32 week growth q 4 weeks. - Weekly NSTs at 36 weeks. History of depression Overview She states she did have depression after the of her child. Yancy Rodriguez APRN.OPERATIONS ACCOUNTANT Other Visit Diagnoses Encounter for anatomic survey Patient should continue care with her general OBGYN, please re consult should new issues or questions arise. Consultation requested by Yancy Rodriguez for an opinion regarding dichorionic/diamniotic twin . My final recommendations will be communicated back to the requesting physician by way of shared Medical record or letter to requesting physician via [place] mail. I spent a total of 55 minutes on the date of the service which included preparing to see the patient, qyji-qr-nksw patient care, completing clinical documentation, counseling and educating the patient/family/caregiver, and communicating results to the patient/family/caregiver. I shared my findings and recommendations via the shared medical record or via the mail to the referring provider. Noemi Brush MD documented in this encounter [facility] 11-13-2024 Progress note Formatting of t his note might be different from the original. EH - S: Karissa is a 34 year old female who presents at 16w5d for a routine visit. Feeling movement. Denies headache, visual changes, chest pain, shortness of breath, vaginal bleeding, leakage of fluid, or dysuria. Feeling well, no complaints. O: See flow sheet Gen: No apparent distress Abd: Gravid, nontender ASSESSMENT/PLAN: 1. Encounter for supervision of high risk in second trimester, antepartum - ICD9: V23.9, ICD10: O09.92 (primary diagnosis) - Continue PNV and LDA - Reports mood stable - Opts for flu vaccine today - Bedside ultrasound confirms cardiac activity/movement on both babies 2. 16 weeks gestation of - ICD9: V22.2, ICD10: Z3A.16 - Anatomy ultrasound next visit with MFM consult 3. Dichorionic diamniotic twin in second trimester - ICD9: 651.03, V91.03, ICD10: O30.042 4. Obesity affecting in second trimester, unspecified obesity type - ICD9: 649.13, ICD10: O99.212 -Pre BMI 35 - Plan for 32 week growth q 4 weeks. - Weekly NSTs at 36 weeks. 5. History of episiotomy - ICD9: V45.89, ICD10: Z98.890 6. History of sickle cell anemia - ICD9: V12.3, ICD10: Z86.2 - Has MFM consult PTL precautions reviewed. RTO in 4 weeks or sooner as needed. Yancy Rodriguez APRN.SHARDA [facility] 11-13-2024 Miscellaneous Notes EH - S: Karissa is a 34 year old female who presents at 16w5d for a routine visit. Feeling movement. Denies headache, visual changes, chest pain, shortness of breath, vaginal bleeding, leakage of fluid, or dysuria. Feeling well, no complaints. O: See flow sheet Gen: No apparent distress Abd: Gravid, nontender ASSESSMENT/PLAN: 1. Encounter for supervision of high risk in second trimester, antepartum - ICD9: V23.9, ICD10: O09.92 (primary diagnosis) - Continue PNV and LDA - Reports mood stable - Opts for flu vaccine today - Bedside ultrasound confirms cardiac activity/movement on both babies 2. 16 weeks gestation of - ICD9: V22.2, ICD10: Z3A.16 - Anatomy ultrasound next visit with MFM consult 3. Dichorionic diamniotic twin in second trimester - ICD9: 651.03, V91.03, ICD10: O30.042 4. Obesity affecting in second trimester, unspecified obesity type - ICD9: 649.13, ICD10: O99.212 -Pre BMI 35 - Plan for 32 week growth q 4 weeks. - Weekly NSTs at 36 weeks. 5. History of episiotomy - ICD9: V45.89, ICD10: Z98.890 6. History of sickle cell anemia - ICD9: V12.3, ICD10: Z86.2 - Has MFM consult PTL precautions reviewed. RTO in 4 weeks or sooner as needed. Yancy Rodriguez APRN.OPERATIONS ACCOUNTANT documented in this encounter [facility] 11-13-2024 Instructions Nidhi Fontana MA - 11/13/2024 7:54 AM EST SEQUENTIAL SCREENINGS The [facility] offers sequential screenings for women who are interested in screenings for chromosomal abnormalities and certain defects during a . The sequential screen combines ultrasound and blood tests to determine the risk of chromosomal abnormalities, including Down's Syndrome (Trisomy 21) and Trisomy 18, as well as open neural tube defects including spina bifida. Ultrasound examination is performed between 11 weeks and 13 weeks gestational age. Blood tests are drawn after the ultrasound and again later in the between 15 and 21 weeks gestational age. Please let your physician know if you are interested in this testing. It will require an appointment with our windshield technician. This is not an ultrasound performed by a physician in our office during a routine visit. SIGNS AND SYMPTOMS OF LABOR 1. Contractions every 10 minutes or more often 2. Clear, pink, or brownish fluid (water) leaking from vagina 3. Feeling that baby is pushing down, pressure 4. Low, dull backache 5. Cramps that feel like a period 6. Cramps with or without diarrhea If you notice any of the above symptoms, contact our office at [phone] and ask to speak with a nurse. After hours, you can call doctors registry at [phone] OR call [facility] at [phone] and ask to have the doctor evaluation advisor paged. If you consider this an emergency, dial 1-2-7 or go to your nearest emergency department. NEED HELP? Are you dealing with a violent or abusive relationship? Are you a victim of rape or sexual assult? Call [facility] ([place]) 24 hour Crisis Hotline: 551.825.9934 or 547-384-0940. MANUAL Your Guide to a Healthy manual is now on-line. Visit [email or web address] ncyGuide to download your free copy SEQUENTIAL SCREENINGS The [facility] offers sequential screenings for women who are interested in screenings for chromosomal abnormalities and certain defects during a . The sequential screen combines ultrasound and blood tests to determine the risk of chromosomal abnormalities, including Down's Syndrome (Trisomy 21) and Trisomy 18, as well as open neural tube defects including spina bifida. Ultrasound examination is performed between 11 weeks and 13 weeks gestational age. Blood tests are drawn after the ultrasound and again later in the between 15 and 21 weeks gestational age. Please let your physician know if you are interested in this testing. It will require an appointment with our windshield technician. This is not an ultrasound performed by a physician in our office during a routine visit. SIGNS AND SYMPTOMS OF LABOR 1. Contractions every 10 minutes or more often 2. Clear, pink, or brownish fluid (water) leaking from vagina 3. Feeling that baby is pushing down, pressure 4. Low, dull backache 5. Cramps that feel like a period 6. Cramps with or without diarrhea If you notice any of the above symptoms, contact our office at [phone] and ask to speak with a nurse. After hours, you can call doctors registry at [phone] OR call [facility] at [phone] and ask to have the doctor evaluation advisor paged. If you consider this an emergency, dial 9--2 or go to your nearest emergency department. NEED HELP? Are you dealing with a violent or abusive relationship? Are you a victim of rape or sexual assult? Call [facility] ([place]) 24 hour Crisis Hotline: 995.963.4151 or 562-554-2407. MANUAL Your Guide to a Healthy manual is now on-line. Visit [email or web address] ncyGuide to download your free copy documented in this encounter [facility] 10-16-2024 Telephone encounter Note Left message for patient to call office or check mychart message. Chayito Cedeno RN [facility] 10-16-2024 Miscellaneous Notes Left message for patient to call office or check mychart message. Chayito Cedeno RN Please let the patient know that her vitamin D level is low and I would like her to take 2000 units daily. Caren Carreno APRN.CNP documented in this encounter [facility] 10-15-2024 Telephone encounter Note Please let the patient know that her vitamin D level is low and I would like her to take 2000 units daily. Caren Carreno APRN.CNP [facility] Work Phone: 10-13-2024 Progress note Formatting of t his note might be different from the original. SW- Pt doing well. Nausea and fatigue. No pain, vb. PE: Gen- NAD, well appearing Abd- Soft, NT See flowsheet - Bedside TAUS +FHT x 2 and movement x 2 - NOB labs today - Discussed NIPT and patient unsure. NIPT handout given - Has NT scheduled - Discussed baby ASA - RTO 4 wks Hiren Jordan DO [facility] Work Phone: 10-13-2024 Miscellaneous Notes SW- Pt doing well. Nausea and fatigue. No pain, vb. PE: Gen- NAD, well appearing Abd- Soft, NT See flowsheet - Bedside TAUS +FHT x 2 and movement x 2 - NOB labs today - Discussed NIPT and patient unsure. NIPT handout given - Has NT scheduled - Discussed baby ASA - RTO 4 wks Hiren Jordan DO documented in this encounter [facility] 10-13-2024 Instructions Steve Ramirez MA - 10/13/2024 10:15 AM EST SEQUENTIAL SCREENINGS The [facility] offers sequential screenings for women who are interested in screenings for chromosomal abnormalities and certain defects during a . The sequential screen combines ultrasound and blood tests to determine the risk of chromosomal abnormalities, including Down's Syndrome (Trisomy 21) and Trisomy 18, as well as open neural tube defects including spina bifida. Ultrasound examination is performed between 11 weeks and 13 weeks gestational age. Blood tests are drawn after the ultrasound and again later in the between 15 and 21 weeks gestational age. Please let your physician know if you are interested in this testing. It will require an appointment with our windshield technician. This is not an ultrasound performed by a physician in our office during a routine visit. SIGNS AND SYMPTOMS OF LABOR 1. Contractions every 10 minutes or more often 2. Clear, pink, or brownish fluid (water) leaking from vagina 3. Feeling that baby is pushing down, pressure 4. Low, dull backache 5. Cramps that feel like a period 6. Cramps with or without diarrhea If you notice any of the above symptoms, contact our office at [phone] and ask to speak with a nurse. After hours, you can call doctors registry at [phone] OR call [facility] at [phone] and ask to have the doctor evaluation advisor paged. If you consider this an emergency, dial 91-7 or go to your nearest emergency department. NEED HELP? Are you dealing with a violent or abusive relationship? Are you a victim of rape or sexual assult? Call [facility] ([place]) 24 hour Crisis Hotline: 669.634.5563 or 353-039-3772. MANUAL Your Guide to a Healthy manual is now on-line. Visit [email or web address] ncyGuide to download your free copy documented in this encounter [facility] 10-11-2024 Telephone encounter Note Patient notified. She has not yet decided. Asked that she please let us know her decision at her appointment with SW on Wednesday. Dulce Chang RN [facility] 10-11-2024 Miscellaneous Notes Patient notified. She has not yet decided. Asked that she please let us know her decision at her appointment with SW on Wednesday. Dulce Chang RN Pt scheduled to see SW on Wednesday, looks like she was supposed to schedule a nuchal ultrasound. LM for patient to call back to discuss if she still wants to have this done. She is a twin . 10:30 slot on 1/16/25 on hold for patient if she wishes to proceed with nuchal ultrasound. Tash Romero MA documented in this encounter [facility] 10-10-2024 Telephone encounter Note Pt scheduled to see SW on Wednesday, looks like she was supposed to schedule a nuchal ultrasound. LM for patient to call back to discuss if she still wants to have this done. She is a twin . 10:30 slot on 10/19/24 on hold for patient if she wishes to proceed with nuchal ultrasound. Tash Romero MA [facility] 09-13-2024 Instructions Yancy Rodriguez APRN.OPERATIONS ACCOUNTANT - 09/13/2024 9:19 AM EST Images from the original note were not included. Please select the following link to access the [facility] Your Guide to a Healthy . [email or web address] MORNING SICKNESS IN by Rajwinder Rodriguez M.D. for [employer] As you may already know, morning sickness can often be more appropriately called evening sickness or flcxz-vnqido-yi-the-day sickness. While there are the justin few, most women (50-90%) experience some degree of nausea, some have vomiting, and a few develop a severe form of vomiting during called hyperemesis gravidarum. What causes the nausea and vomiting of ? We can't explain why some people feel fine and others are green for months. Even the same woman may feel vastly different in each . There is some relationship between nausea and the level of the hormone hCG. In twin pregnancies, and in other situations where the hCG is greater than expected, nausea and vomiting tend to be worse. In a destined for miscarriage, hCG levels tend to be low, and nausea is often less severe. This being said, a lack of nausea doesn't guarantee that the is destined for miscarriage. The fact that nausea and vomiting are often signs of a healthy can offer a silver lining in the dark cloud of miserable nausea. How long will the nausea last? Fortunately, for most women, nausea and vomiting are a first trimester event, peaking at week 9-10 and waning by week 14-16. When you are feeling bad the weeks can go by slowly but most moms do feel tremendously better by the middle of the . Whether morning sickness is a brief experience or lasts through most of the , there are treatments that can make the weeks or months more tolerable. What can you do about it? Diet: See what works for you. Try eating bland dry foods, and avoid fatty or spicy foods. It is okay to eat a less than perfectly balanced diet in the first trimester. Have your liquids separately from dry foods. Try sports drinks, water, clear juices, Kleber-aid, or non-caffeinated tea. Avoid carbonated beverages that fill up your stomach. Try eating lots of little meals. If you tend to feel sick when you first wake up, leave crackers next to the bed for a quick snack before rising. Keeping healthy snacks with you all day to nibble when you feel queasy can sometimes even prevent nausea from starting. vitamins and nausea: Pre-melchor vitamins can sometimes worsen nausea in . While folate is necessary, especially early in the , it comes as a smaller pill that many people find more tolerable than the complete vitamin pill. Ask your practitioner if it is okay to temporarily replace vitamins and iron with just a folate pill if you find a significant worsening in the level of your nausea from the vitamins. Alternative therapies: Acupressure may be used to treat nausea in , and is not known to have any risks for the fetus. Wristbands (marketed for seasickness) that put pressure on an acupressure point at the wrist are often available at drugstores or travel stores. Blanca root is used for nausea in many traditional cultures. Some women take fresh grated blanca or blanca tablets. It is possible that the pill form contains other ingredients or contaminants, so you may want to try fresh blanca first. Medications: Emetrol is the only nausea medication approved for use in . It is available over the counter and is soothing to the stomach. A prescription medication called Bendectin was available in the 1970s-1979's and was shown to be safe in , but the company stopped marketing it in the [place] due to the costs of liability coverage. Bendectin contained 10 milligrams of vitamin B6 and 10 milligrams of Doxylamine. Two tablets were given at bedtime and a total of up to 4 tablets could be used in a 24-hour period. Interestingly, Unisom , which contains a higher dose (25 mg.) of the same medication, Doxylamine, is currently marketed as an bvta-ahc-jkwreux sleeping pill. Ask your practitioner if creating a vitamin B6/Doxylamine combination with gndq-utw-zkmcbjl medications would be safe for you. Prescription medications like Compazine and Phenergan can be used if the benefits outweigh possible risks, but these have not been clearly shown to be safe in . Zofran , an expensive anti-nausea medication often used to treat nausea from chemotherapy, can also be used. Can I throw up so much it harms the baby? The act of vomiting cannot hurt your fetus, which is protected inside the uterus. If you get dehydrated or develop a metabolic imbalance, this can be unhealthy. As long as you can keep down liquids, you and your baby will generally do all right. Eat when you feel able. If you are unable to keep anything down, or if you notice potential signs of dehydration such as lightheadedness, or concentrated and/or infrequent urination, call your practitioner. Some women need brief hospital admission for intravenous fluids and anti-nausea medications if their condition becomes severe. This severe form of nausea and vomiting is called Hyperemesis Gravidarum. As with many symptoms of , remind yourself that this, too, shall pass, and you'll have a wonderful baby to show for it! TREATMENT OPTIONS, SHORT VERSION: Frequent small meals Hydrate throughout day [employer] wrist pressure point applicators Blanca root (powdered, in capsules) 250mg four times a day Vitamin B6 25 mg tablet three times a day Also may be taken with half a tablet of Unisom three times a day (Doxylamine 12.5 mg) If severe (weight loss, dehydration), call us and come in for IV hydration and possible medication in the form of injections. Prescription medications such as Phenergan, Compazine, Reglan Ondansetron (Zofran ) May 04, 2020 This sheet talks about exposure to ondansetron in a and while . This information should not take the place of medical care and advice from your healthcare provider. What is ondansetron? Ondansetron is a medication used to treat nausea and vomiting that may be caused by surgery, chemotherapy, or radiation therapy. Ondansetron has also been prescribed during to help with symptoms of nausea and vomiting in (NVP). NVP is also referred to as morning sickness . Ondansetron is taken by mouth, infused into a vein (by IV) or given by injection into a muscle (IM). Ondansetron is sold under the brand name Zofran . What can I do to help control my nausea and vomiting? [employer] has a helpful fact sheet on nausea in with recommendations. You can review it here: https://[employer].org/fact-she ets/uofpoo-oipqjacb-efviotyam-nvp /pdf/. Also, eating small meals often, drinking plenty of clear fluids, and avoiding triggers (such as odors, heat, and spicy or high fat foods) can help. Talk to your healthcare provider about which NVP treatments are right for you. I take ondansetron. Can it make it harder for me to become ? There are no studies that have looked to see if ondansetron could make it harder for a person to get . Studies in animals did not find that ondansetron would affect the ability to get . Does taking ondansetron increase the chance for miscarriage? Miscarriage can occur in any . One study did not find that miscarriage happened more often for those who reported that they used ondansetron in the first trimester of . Does taking ondansetron increase the chance of defects? Every starts out with a 3-5% chance of having a defect. This is called the background risk. Most studies have found no increased chance for defects among thousands of people who used ondansetron in the first trimester of . A few studies reported a very small (less than 1%) increase in the chance for a cleft palate (an opening in the roof of the mouth that may be repaired with surgery) or a heart defect. Because of other factors that could affect the pregnancies exposed to ondansetron, it is not known if ondansetron actually increases the chance of defects. Could taking ondansetron cause other complications? Studies did not find a higher chance of loss, delivery (delivery before 37 weeks of ), or low weight when ondansetron was used during . At higher doses, there have been reports that ondansetron use might cause a heart rhythm problem (called QT interval prolongation) in the person taking ondansetron. In severe cases, this could become an abnormal heart rhythm known as Torsades de Pointes. If you are taking ondansetron, you can talk to your healthcare provider about how to watch for changes in your heart rhythm. Does taking ondansetron in cause long-term problems in behavior or learning for the baby? One study looked at 78 infants who were exposed to ondansetron at any time during . The infants were looked at between 7 days to 2 months of age and did not show any signs of unusual behaviors. A single follow-up survey for about 25 of these children was sent in by the parents. The children were between 1 to 5 years old. The survey asked about behavior. The surveys did not report behavior differences in these children compared to children who were not exposed ondansetron during . There are no other studies looking at the use of ondansetron in and long-term effects for the baby. Can I breastfeed while taking ondansetron? There have been no studies in humans looking at the use of ondansetron during . Studies in animals suggest that ondansetron enters breast milk, but the effects of ondansetron on a infant are not known. If ondansetron use is necessary, it is not usually a reason to stop . A different drug may be considered, especially while a or infant. Be sure to talk to your healthcare provider about all your questions. I take ondansetron. Can it make it harder for me to get my partner or increase the chance of defects? There are no human studies looking at male use of ondansetron. Animal studies have not shown any effect on male fertility. In general, exposures that fathers and sperm donor have are unlikely to increase risks to a . For more information, please see the [employer] fact sheet Paternal Exposures at https://mothertobaby.org/fact-she ets/cuzcilce-ayqntsmjf-pkppjxikp/ pdf/. Psychotherapy Services at [facility] Call Behavioral Health Access Line at [phone] to schedule Individual psychotherapy In-person or virtual Wait time for first evaluation may be 12 or more weeks. Wait list spots may be available. Due to the high volume of patients this option is recommended if you are looking for short term acute symptom coping strategies. 2-080-3-YFLR2OISH - [place] Maternal Mental Health Hotline If you are in suicidal crisis, please call or text 5-573-926-TALK ( ) or visit the National Suicide Prevention Lifeline website. [facility].gov If you are in crisis, call 801 or go to your nearest Emergency Department Here are some links for wonderful Providers here in the community and surrounding areas. Do not hesitate to contact their offices, many are offering virtual visits during this time. Psychotherapy Services outside of [facility] Support International Online Provider Directory https://WebAction/ - can assist in finding providers in your area that might be more extensive then the list below. [facility] [place], [place] [address] [place] [address] [facility] [address] [place] [address] [facility] [address] [place] [address] [facility] [address] [place], [place] [id number] Hector Butler MD [address] [place] [address] [facility] [address], [address] [place] [address] [facility] [address] [place] [address] [facility] [place] [facility] [place] [phone]/ [phone] Mayelin Anthony [address] [facility] [address] [facility] [phone] [facility] [place] / [place] [phone] [facility] [address] [place] [address]/ [place] [facility] [phone] Ryanne Calvo, WALLY, ROWAN [facility] Works[facility], telehealth and at home visits. [phone] [facility] counseling [place] 20 locations [place], [place], [place], [place], [place], [place], [place], [facility], [place], [place], [place], [place], [place], [place], [facility], [place], [place] ,[facility], [place], [place],[facility], [place], [place], [facility], [facility], [place] www.[facility] [phone] Psychotherapy resources outside of [facility] are listed below [facility] Web: https://www.Yogurt3D Engine/ Support International Online Provider Directory https://WebAction/ Insight Counseling https://Intrinsic LifeSciences/ [employer]istent[employer] Pharmaceuticals for Behavioral Health and Wellness Web: https://Flodesign Sonics/ Evryx Technologies for Effective Living Web: https://HiGear/ LifeStance Web: https://MedTel.com.Teikon/location/s [place]/ [facility] Web: https://www.Stylus Medi[facility]inon health center.or / [facility] Web: https://uSpeak.org/ Recovery Resources Mental health and substance abuse help Web: https://www.Imagine K12s.org & RESOURCES Support International Direct peer support and connection to professional resources Non-Emergency Helpline Phone: / Text: [phone] Web: https://www..net/ Online Provider Directory: https://WebAction/ Online Support Meetings: https://www..net/get-he lp/tcy-gylfiv-ptadkfk-meetings/ SUSAN Baby and Resident Buyer Services Web: https://www.Gigantt/ MotherToPlextronicsby Expert information on medication use during and Text: [phone] Web: https://GeoQuip.Cympel/ NATIONAL REGISTRY FOR PSYCHIATRIC MEDICATIONS Currently studying the safety of antidepressants, ADHD medications and atypical antipsychotics taken during TO PARTICIPATE CALL TOLL-FREE: Web: https://womenentalhealth.org/re search/pregnancyregistry/ Support Groups: [facility]- Follow on facebook Baby Bistro support group led by [facility] department Resilient Mamas - Support Group [facility].org The POEM support group [phone] Www.poemonline.org Follow on facebook - SIMONA cerda Online support meetings PSI https://www..net/get-he lp/ecu-sobchp-gnhvnkc-meetings/ [facility] mommy and me virtual support group 11:30-1pm Support for mothers and new babies and toddlers [place] childbirth education: Childbirth @cc.org or call [phone] CRISIS: CRISIS HOTLINE [phone], 911 or go to the nearest . [facility] [phone] / [facility] [phone] https://www.[facility].org Crisis text line text the word HOME to [id number] [facility] [address] billie [address] [facility] [address] www.Medical Breakthroughs Fund.Teikon Maryann Elena clinical counseling [address] [address] www.Betable [phone] Holding space psychotherapy Claudine Burk COATER ASSOCIATE SOLID WASTE TRUCK DRIVER-S [address] [facility] www.3DMGAME [phone]/ Charmaine [phone] They all offer virtual. All work with trauma Support groups Online support meetings PSI https://www..net/get-he lp/fjs-jifyvx-bmhkvtk-meetings/ Here are the support groups they offer: Support of parents of 1 to 4 years old children POEM ( Outreach and Encouragement for Moms) offers free support for mothers experiencing depression, anxiety, and other mood and anxiety disorders. Masks are recommended but not required. No pre-registration required. Babies in arms welcome. meetings now take place on the and Wednesday of each month Location: [facility] [address] [place] [address] Room 122 (library room) 7-8:00 p.m. When you enter the [facility] parking lot off of [address], the entrance door closest to our meeting room is on the front of the building toward the right. For those who are more comfortable with a virtual platform, POEM offers online support group options several days of the week. To register for an online group or to find out more about POEM, website at: https://aohio.org/get-help/claxton-[facility] medical centergwos-mvktte-nsjcim/poem-services/ offer a confidential helpline: private Facebook group is called SIMONA Cerda Here are the groups they offer: Traumatic childbirth resources: Http://pattch.org/ https://www.ExecOnlineramoneNano Terra.Teikon/ Name Location (s) Phone # (s) Services Website [facility] [address] [place], [place] - [phone]; [address] [phone] In-Person GROUPS INDIVIDUAL THERAPY MATERNAL- MENTAL HEALTH MEDICATION MANAGEMENT PLAY AND ART THERAPY TELETHERAPY https://www.Roka Bioscience.Teikon/s ervices/ Cornerstone of Rhonda JUÁREZ? [address] [place], [place] [address] ? [address] [place], [place] [id number] ? JACKSON [address] [place], [place] [address]? Grief Support Groups Individual Grief Counseling Spiritual Care Memorial Events https://arie.[facility].org/grief-services [facility] [address] [place], [place] [address]; ; Email: eileen@Intrinsic LifeSciences Women's Mental Health; Couples Counseling; Trauma (EMDR); Stress Management; Mood and Anxiety Related Disorders- and much more https://www.Time Warden/ LifeStance Numerous as they have contract providers: access website to find specific providers near you Counseling including CBT and EMDR as well as many more modalities; Medication Management; Telehealth and In-Person https://ZoweeTV/ Resistentia Pharmaceuticals for Behavioral Health and Wellness [address] [place], [place] [address]; [phone] Personal, Family and Group Therapy; Psychological Testing and Diagnosis; Medication Management; Life and Career Coaching; Psychoanalysis; Literacy Testing; Yoga and Meditation https://Flodesign Sonics/ [employer] Network [facility] [address] [facility] [address], [place] [address] [address] ; [facility], [address] [place] [address]; Office # for both sites: Individual and Couples Counseling https://www.ADARTIS.Teikon/ paymentinsurance.html OCD & Anxiety [facility] [address] [facility], [address], [place] [address]; Specialize in Cognitive-Behavioral Therapy (CBT) for the treatment of anxiety disorders across the lifespan. TELEHEALTH ONLY. https://ocdandanxietycenteroPop Up Archive Nippon Renewable Energy/faqs [facility] [address] [facility], 6th [place], [address] [place] [address] [facility] [place], [address] [place] [address] [place], [address] [place] [address] [place], [address], [id number] [address] [place], [address] [place] [address] [place], [place], [id number] Transportation Services To minimize patient barriers, [facility] provides transportation services to patients who qualify. If you are unable to get to your appointment at any of our facilities, please let us know. Need help now? Stop by one of our walk-in clinics to establish behavioral health care. Counseling Indvidual, Group, Couples and Family Counseling and EMDR. Medication Management Case Management benefits applications housing assistance Substance abuse treatment Medication assisted treatment https://www.[facility].or g/mental-health/ [facility] OFFICE AT [facility] [address] [place] [address] [facility] OFFICE [address] [place] [address] [facility] OFFICE [address] [place] [address] TO OFFICE (at [facility]) [address] [place] [address] [facility] SYRINGE EXCHANGE PROGRAM & HIV SCREENING [address] [place] [address] ETNA SYRINGE EXCHANGE PROGRAM [address] [place] [address] Behavioral Health Urgent Care: [facility] Counseling Indvidual and Group Medication Management Case Management benefits applications housing assistance Substance abuse treatment Medication assisted treatment Employment Services/ Job Training https://theNetworking[place]enix.comgaio.org/ Recovery Resources [address] [place], [place] [address]: P: [phone] [address] [facility], [address], [place] [address] P: [phone] Our services include: Addiction Mental Health Treatment Assessment Psychiatry Medical Care Employment Housing Drug and Alcohol Prevention HIV/AIDS Prevention https://www.recres.org/ [facility] [place] [address] [place] [address] [place] [address] [place] [address] [address] [place], [place] [address] [place] [address] [place] [address] [place] [address] [facility] [address] [place] [address] [place] [address] [place] [address] TMS Therapy/ Counseling Psychocological Testing for ADHD Medication Management In-Person/ Telemedicine https://www.Arkami.com/marlena ents-depression Memory & Psychological services [address], [place] [address] Neuropsychological Testing For ADHD https://www.memoryandpsych.com/ [facility] - Main Office [address] [place], [place] [id number] [address] [address] [place] [address] [place], [place] [id number] Providing phdf-or-xyuj and telehealth services. Adult Case Management Community Education and Prevention Employment Outpatient Treatment - Counseling & Psychotherapy Psychiatric Services http://www.ccc.org/ [facility] [place] [address] [place] [address] Annabella [facility] [address] [place] [address] Virtual Appointments! Now offering safe and convenient virtual client appointments to anyone in [place]! Individual Therapy Couples/Relationship Therapy Trauma/EMDR Therapy Art Therapy Play Therapy Engagement Manager Support: Parenting Skills, Parent Child Interaction Therapy, Parent Interaction Therapy Meditation Dietitian/Rn Navigator Services Group Therapy Yoga https://www.SocialSci. Teikon/ Carlos Saunders [phone] Private Practice: Telehealth Only Specializes in EMDR for Trauma None documented in this encounter [facility] 09-12-2024 Telephone encounter Note completed [facility] 09-12-2024 Miscellaneous Notes completed Left message for patient to return phone call to complete nurse intake questions for her upcoming appointment. Patient has an appointment with Yancy Rodriguez for NOB appointment. I am here today and tomorrow am to complete if she is available documented in this encounter [facility] 09-12-2024 Note HNO ID: [id number] Author: YANCY RODRIGUEZ APRN.OPERATIONS ACCOUNTANT Service: ? Author Type: Nurse Practitioner Type: Progress Notes Filed: 09/13/2024 10:19 Note Text: Graves Registration Specialist offered: Patient declines. HPI: Karissa is a 34 year old Declined here to establish Obstetrical Care. Patient's last menstrual period was 07/19/2024 (approximate). from OB Dating Form. was planned Complaints: (!) Coughing or vomiting blood; Severe nausea/vomiting *still coughing and vomit OB History T1 L1 SAB0 IAB0 Ectopic0 Multiple0 Live Births1 # 1 - Date: 11/30/21, Sex: Female, Weight: None, GA: 40w4d, Type: Vaginal, Spontaneous, Apgar1: None, Apgar5: None, Living: Living, Comments: AROM, thick meconium, CAN x1 tight,first degree MLE extended to 2nd degree ML lac with sulcal tears # 2 - Date: None, Sex: None, Weight: None, GA: None, Type: None, Apgar1: None, Apgar5: None, Living: None, Comments: None Previous history: Prior : never History of 4th degree laceration: No History of shoulder dystocia: No History of Hypertensive disorders including pre-eclampsia or gestational hypertension: No History of gestational diabetes: No Patient's Risk Screening for delivery: Have you had a prior hill between 20w and 36w6d? No How many pregnancies have you had before? 1 Did you have a previous baby with a GBS Infection? No Please select all that apply for any prior : N/A MEDICAL/PSYCHOSOCIAL HISTORY: History of hemorrhage or bleeding concerns: No Thyroid Disease: No History of chronic hypertension: No History of pre-existing diabetes: No No results found for: ABORHD BMI 36.55 kg/(m2) Last Pap: 01/24/2024 History of abnormal pap: +HPV Prior treatment for cervical dysplasia: none. Last HPV: 01/24/2024 History of STDs: chlamydia and HPV Partner History of STDs: None Did you have a partner with Herpes? No Tobacco use: No E-Cigarette/Vaping Use: No Caffeine use: No Drug use: No Alcohol use: No Multivitamin with Folic acid: has discontinued PNV due to NANDV Would refuse blood transfusion if medically necessary: No Social Needs: How often does this describe you? I don't have enough money to pay my bills: Never Within the past 12 months, have you worried that your food would run out before you had money to buy more? Never In the past 12 months, has lack of reliable transportation kept you from going to medical appointments or work, or from getting things needed for daily living? Never In the past 12 months, have you had any concerns about having a place to live, or about the condition or quality of your housing? Sometimes -wants bigger home Would you like more information on any of the following (please check all that apply)? Not interested Social History: Do you have any history of depression, anxiety, PTSD, or other mood problems? Yes Do you have a history of abuse or trauma that may impact your experience? No Are you currently employed? Yes Depression/Anxiety Screening: admits to symptoms of depression. Believes related to NANDV OB Depression and Anxiety Screening- This Encounter (since 09/12/2024) Over the past 2 weeks have you felt down, depressed, or hopeless? Positive - Further Testing Indicated Over the past two weeks, have you felt little interest or pleasure in doing things?? Positive - Further Testing Indicated I have been able to laugh and see the funny side of things. Not quite so much now I have looked forward with enjoyment to things. Rather less than I used to I have blamed myself unnecessarily when things went wrong. No, never I have been anxious or worried for no good reason. No, not at all I have felt scared or panicky for no good reason. No, not at all Things have been getting on top of me. Yes, sometimes I haven't been coping as well as usual I have been so unhappy that I have had difficulty sleeping. Not at all I have felt sad or miserable. Not very often I have been so unhappy that I have been crying. Only occasionally The thought of harming myself has occurred to me. Never [place] Depression Scale Total 6 Feeling nervous, anxious or on edge 1-Several days Not being able to stop or control worrying 0-Not al all Anxiety Pre-Screening Total (If >/= 3 additional questions will be reviewed) 1 Genetic Screening: Partner present: No Patient verbalized knowledge of partner family health history: Yes Do you or your partner have any personal or family history of defects not previously discussed: No Do you have history of a complicated by anomaly, genetic condition, or demise: No Preeclampsia Risk Screening: Screening for prevention of preeclampsia: High risk factors: None Moderate risk ractors: Obesity (body mass index greater than 30) OB Risk Screening: Completed, no positive findings d (more content not included)... [facility] History of Present illness Narrative Graves Registration Specialist offered: Patient declines. HPI: Karissa is a 34 year old Declined here to establish Obstetrical Care. Patient's last menstrual period was 07/19/2024 (approximate). from OB Dating Form. was planned Complaints: (!) Coughing or vomiting blood; Severe nausea/vomiting *still coughing and vomit OB History T1 L1 SAB0 IAB0 Ectopic0 Multiple0 Live Births1 # 1 - Date: 11/30/21, Sex: Female, Weight: None, GA: 40w4d, Type: Vaginal, Spontaneous, Apgar1: None, Apgar5: None, Living: Living, Comments: AROM, thick meconium, CAN x1 tight,first degree MLE extended to 2nd degree ML lac with sulcal tears # 2 - Date: None, Sex: None, Weight: None, GA: None, Type: None, Apgar1: None, Apgar5: None, Living: None, Comments: None Previous history: Prior : never History of 4th degree laceration: No History of shoulder dystocia: No History of Hypertensive disorders including pre-eclampsia or gestational hypertension: No History of gestational diabetes: No Patient's Risk Screening for delivery: Have you had a prior hill between 20w and 36w6d? No How many pregnancies have you had before? 1 Did you have a previous baby with a GBS Infection? No Please select all that apply for any prior : N/A MEDICAL/PSYCHOSOCIAL HISTORY: History of hemorrhage or bleeding concerns: No Thyroid Disease: No History of chronic hypertension: No History of pre-existing diabetes: No No results found for: ABORHD BMI 36.55 kg/(m^2) Last Pap: 01/24/2024 History of abnormal pap: +HPV Prior treatment for cervical dysplasia: none. Last HPV: 01/24/2024 History of STDs: chlamydia and HPV Partner History of STDs: None Did you have a partner with Herpes? No Tobacco use: No E-Cigarette/Vaping Use: No Caffeine use: No Drug use: No Alcohol use: No Multivitamin with Folic acid: has discontinued PNV due to N&V Would refuse blood transfusion if medically necessary: No Social Needs: How often does this describe you? I don't have enough money to pay my bills: Never Within the past 12 months, have you worried that your food would run out before you had money to buy more? Never In the past 12 months, has lack of reliable transportation kept you from going to medical appointments or work, or from getting things needed for daily living? Never In the past 12 months, have you had any concerns about having a place to live, or about the condition or quality of your housing? Sometimes -wants bigger home Would you like more information on any of the following (please check all that apply)? Not interested Social History: Do you have any history of depression, anxiety, PTSD, or other mood problems? Yes Do you have a history of abuse or trauma that may impact your experience? No Are you currently employed? Yes Depression/Anxiety Screening: admits to symptoms of depression. Believes related to N&V OB Depression and Anxiety Screening- This Encounter (since 09/12/2024) Over the past 2 weeks have you felt down, depressed, or hopeless? Positive - Further Testing Indicated Over the past two weeks, have you felt little interest or pleasure in doing things? Positive - Further Testing Indicated I have been able to laugh and see the funny side of things. Not quite so much now I have looked forward with enjoyment to things. Rather less than I used to I have blamed myself unnecessarily when things went wrong. No, never I have been anxious or worried for no good reason. No, not at all I have felt scared or panicky for no good reason. No, not at all Things have been getting on top of me. Yes, sometimes I haven't been coping as well as usual I have been so unhappy that I have had difficulty sleeping. Not at all I have felt sad or miserable. Not very often I have been so unhappy that I have been crying. Only occasionally The thought of harming myself has occurred to me. Never [place] Depression Scale Total 6 Feeling nervous, anxious or on edge 1-Several days Not being able to stop or control worrying 0-Not al all Anxiety Pre-Screening Total (If >/= 3 additional questions will be reviewed) 1 Genetic Screening: Partner present: No Patient verbalized knowledge of partner family health history: Yes Do you or your partner have any personal or family history of defects not previously discussed: No Do you have history of a complicated by anomaly, genetic condition, or demise: No Preeclampsia Risk Screening: Screening for prevention of preeclampsia: High risk factors: None Moderate risk ractors: Obesity (body mass index greater than 30) OB Risk Screening: Completed, no positive findings documented. 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 No current facility-administered medications for this visit. Allergies As of Date: 09/13/2024 (No Known Allergies) Fully Assessed 09/13/2024 Does patient have penicillin allergy: No REVIEW OF SYSTEMS: GENERAL: Negative for: Fever or Chills HEENT: Negative for: Headache, Impaired Vision, Ringing in Ears + nosebleed NECK: Negative for: Swelling, Pain, Stiffness RESPIRATORY: Negative for: Shortness of breath, Wheezing + cough before vomiting GASTROINTESTINAL: Negative for:+ heartburn, constipation, nausea/vomiting MUSCULOSKELETAL: Negative for: Muscle or joint pain, stiffness, Joint swelling NEUROLOGIC/PSYCHIATRIC: Negative for: Weakness, Paralysis, Numbness, Tingling, Tremor, Memory loss + anxiety/depression SKIN: Negative for: Rash, Itching GENITOURINARY: Negative for: vaginal itching, vaginal discharge, hematuria or dysuria SENSITIVE EXAM: The sensitive examination was discussed with the Patient or Patient's Authorized Cordwood Cutter Helper. As applicable, any other physician, advance practice provider, medical student, or other health professional student that will be observing or involved in the sensitive examination for educational or training purposes was discussed with the Patient or Authorized Cordwood Cutter Helper. The Patient or Authorized Cordwood Cutter Helper has agreed to proceed with the sensitive examination. (Sensitive examination includes inspection and/or palpation of the breasts, pelvis, prostate and anorectal regions). PHYSICAL EXAM: BP 100/64 Ht 5' 7.52 (1.72m) Wt 237 lb (107.5kg) LMP 07/19/2024 BMI 36.55 kg/(m^2). GENERAL: pleasant in no apparent distress DERMATOLOGY: Normal, without lesions, non-icteric, and non-hirsute NECK: Supple, full range of motion, no adenopathy, and thyroid normal CHEST: Normal inspiratory effort BREAST: soft, non-tender, symmetric, no dominant mass, normal nipple-areolar complex, no lymphadenopathy, and no nipple discharge ABDOMEN: soft, non-tender, and no masses NEURO: alert and oriented x3,exam grossly non-focal PELVIS: External genitalia normal without lesions. Perineal body intact. No vaginal or cervical lesions. Cervix closed. Uterus 8 week size. No adnexal masses or tenderness. Clinical Pelvimetry: Pelvimetry clinically assessed as adequate Limited OB ultrasound exam: twin , cardiac activity visualized with both fetuses ASSESSMENT: 34 year old at 8w0d wks gestational age PLAN: 1) Patient oriented to practice. Patient given new OB orientation folder. Discussed nutrition, folic acid supplementation, dietary guidelines, exercise, smoking, alcohol, caffeine, and drug use. Discussed gestational weight gain guidelines. Discussed routine OB labs including STD/HIV. Discussed how to access Your guide to a health and the Telephone Order Supervisor. Discussed hemoglobin electrophoresis. Patient: known sickle cell Reviewed midwifery and corporate giving manager services that are available. 2) Screening: Hemoglobin A1C: ordered Baby Aspirin: The patient has been counseled about the potential benefits of low dose aspirin in and our recommendation that this be offered to all patients, regardless of whether they meet the high risk criteria specified above. She Accepts Aneuploidy Screening: Discussed aneuploidy screening, nuchal translucency/first trimester early anatomy ultrasound and NIPT. The risks/benefits and limitations of NIPT/aneuploidy screening were reviewed including the potential for false negative and false positive results. The availability of genetic counseling was reviewed. Information on aneuploidy screening was provided. The patient chooses to proceed with First trimester early anatomy ultrasound (12-13w6d) Myriad Carrier Screening: Discussed myriad carrier screening. We discussed the availability of professional-society guided carrier screening and reviewed the conditions screened and limitations of screening. The availability of genetic counseling was reviewed. Information on carrier screening was provided. The patient is considering 3) Patient offered option of Virtual Visits. Patient unsure. May consider in future. ACTIVE PROBLEM LIST Encounter for Supervision of High Risk in First Trimester, Antepartum - 09/13/2024 Comment: Care Checklist Vaccines: [] Flu vaccine [] declined [] RSV vaccine 32 0/7 - 36 6/7 (Jun - Nov) [] declined [] COVID vaccine [] declined [] TDaP 27-36 [] declined First trimester: [x] Dating US [] 1st tri labs [x] Pap smear [] Carrier screening [] declined [] NIPT screening [x] declined [x] First trimester anatomy scan [] declined [x] universal ASA ordered (start 12w-16w) [] declined [] M Power Consult [] not indicated [] declined Second trimester: [] Anatomy scan [] Mode of Delivery - [] Feeding - [] Pump ordered [] Diabetes screen [] CBC, RPR [] Behavioral Health Screening Third trimester (28-30 weeks): [] Consent [] Contraception [] Marketing Content Coordinator [] TeamBirth handout Third trimester (36-40 weeks): [] GBS [] Presentation - [] Scheduled [] yes - Hibiclens, pre-op instructions, CBC, T&S ordered [] no [] H&P [] Preferences worksheet [] Scanned in EMR Dichorionic Diamniotic Twin in First Trimester - 09/13/2024 Comment: September 13, 2024 Confirm di di with nuchal. Yancy Rodriguez APRN.OPERATIONS ACCOUNTANT History of Sickle Cell Anemia - 09/13/2024 Comment: September 13, 2024 Twin brother from sickle cell. FOB had negative carrier screening. MFM consult placed. Yancy Rodriguez APRN.OPERATIONS ACCOUNTANT Obesity Affecting in First Trimester - 04/11/2024 Comment: September 13, 2024 -Pre BMI 35 - Plan for 32 week growth q 4 weeks. - Weekly NSTs at 36 weeks. History of Episiotomy - 09/13/2024 Comment: September 13, 2024 See op record - scanned. Yancy Rodriguez APRN.OPERATIONS ACCOUNTANT Language Barrier - 09/13/2024 Comment: September 13, 2024 Patient and are from [facility]. Patient speaks Kyrgyz. Speaks Haitain Creole or Nauruan as primary language. Patient declined assistance of nutrition associate. I have explained to her that she can request an nutrition associate at any time during her . Yancy Rodriguez APRN.OPERATIONS ACCOUNTANT History of Gastrointestinal Ulcer - 09/13/2024 Hiatal Hernia - 09/13/2024 Gastroesophageal Reflux Disease Without Esophagitis - 04/11/2024 Comment: September 13, 2024 In 2014 she was diagnosed with a duodenal ulcer and states she was treated for about a year. Has been diagnosed with GERD and a hiatal hernia. Has seen Dr. Burnette at [facility] on August 19, 2021 states her last EGD was done in 2020 Yancy Rodriguez APRN.OPERATIONS ACCOUNTANT Nausea and Vomiting During - 09/13/2024 Comment: September 13, 2024 Vitamin B6 and Unisom doses reviewed. She occasionally vomits up blood. Throwing up 3-4x per day, each time she eats. Rx sent for Zofran. Reviewed first trimester risks and written info provided. To call if not improved by end of this week. Yancy Rodriguez APRN.OPERATIONS ACCOUNTANT History of Chlamydia - 09/13/2024 Comment: September 13, 2024 Treated in January 2024. Yancy Rodriguez APRN.OPERATIONS ACCOUNTANT Constipation During in First Trimester - 09/13/2024 Comment: September 13, 2024 Discussed Colace and increased hydration. Yancy Rodriguez APRN.OPERATIONS ACCOUNTANT Heartburn During in First Trimester - 09/13/2024 Comment: September 13, 2024 Taking Tums. Rx for Pepcid sent. Yancy Rodriguez APRN.CNP Pcos (Polycystic Ovarian Syndrome) - 04/11/2024 Depression With Anxiety - 04/11/2024 Comment: September 13, 2024 History of anxiety/depression diagnosed in 2022. States she has issues with side effects with medications and her stomach issues and has never taken medication for long periods. Believes she is doing well off medication. EPDS 6. LEIGHTON 1. Mental health resources provided. Denies thoughts of self harm. Declines meds or counseling at this time. Update throughout . Yancy Rodriguez APRN.CNP History of Depression - 09/13/2024 Comment: She states she did have depression after the of her child. Yancy Rodriguez APRN.CNP Cervical High Risk Hpv (Human Papillomavirus) Test Positive - 01/24/2024 Comment: 2023 Pap NILM, HPR HR+ Needs repeat pap in 1 year. Follow up in 4 weeks or sooner prn. Plan for NT scan between 12w0d and 13w6d gestation. To notify if N+V not improving. Yancy Rodriguez APRN.CNP documented in this encounter [facility] 09-11-2024 Telephone encounter Note Left message for patient to return phone call to complete nurse intake questions for her upcoming appointment. Patient has an appointment with Yancy Rodriguez for NOB appointment. I am here today and tomorrow am to complete if she is available [facility] 07-12-2024 Note HNO ID: [id number] Author: CARLOS JOHN MA Service: ? Author Type: Immunology Teacher Type: Progress Notes Filed: 07/12/2024 14:54 Note Text: POPULATION HEALTH NAVIGATION OUTREACH Action/FYI - Sickle Cell Navigation Outreach Pt is on sickle cell report and needs: Last [facility] OV: N/A Last [facility] Hematology OV: N/A Last [facility] ED Visit Date: N/A - pt on new SC list Spoke with pt who states she is asymptomatic regarding Sickle Cell and has not seen a Director Student [employer] in years. Pt declines scheduling at this time. Reason for Outreach Medical Neighborhood: Sickle Cell Care Gaps due: Establish Care Appointment Patient Contacted: Spoke to patient/parent/or legal guardian Patient identified by name and date of : Yes Sickle Cell actions taken: Patient declined: Patient Declines Navigation Scheduling / Outreach Navigation Signature: Carlos John MA July 12, 2024 10:41 AM [facility] 07-12-2024 History of Present illness Narrative POPULATION HEALTH NAVIGATION OUTREACH Action/FYI - Sickle Cell Navigation Outreach Pt is on sickle cell report and needs: Last [facility] OV: N/A Last [facility] Hematology OV: N/A Last [facility] ED Visit Date: N/A - pt on new MS list Spoke with pt who states she is asymptomatic regarding Sickle Cell and has not seen a Director Student Union in years. Pt declines scheduling at this time. Reason for Outreach Medical Neighborhood: Sickle Cell Care Gaps due: Establish Care Appointment Patient Contacted: Spoke to patient/parent/or legal guardian Patient identified by name and date of : Yes Sickle Cell actions taken: Patient declined: Patient Declines Navigation Scheduling / Outreach Navigation Signature: Carlos John MA July 12, 2024 10:41 AM documented in this encounter [facility] 07-12-2024 Note Patient Outreach (NE TNAV) KARISSA ARIZA ([id number]) 1990 F Date Time Provider Department 07/12/24 CARLOS JOHN During your visit today, we recorded the following information about you: Carlos John MA 07/12/2024 2:54 PM Signed POPULATION HEALTH NAVIGATION OUTREACH Action/FYI - Sickle Cell Navigation Outreach Pt is on sickle cell report and needs: Last [facility] OV: N/A Last [facility] Hematology OV: N/A Last [facility] ED Visit Date: N/A - pt on new SC list Spoke with pt who states she is asymptomatic regarding Sickle Cell and has not seen a Director Student [employer] in years. Pt declines scheduling at this time. Reason for Outreach Medical Neighborhood: Sickle Cell Care Gaps due: Establish Care Appointment Patient Contacted: Spoke to patient/parent/or legal guardian Patient identified by name and date of : Yes Sickle Cell actions taken: Patient declined: Patient Declines Navigation Scheduling / Outreach Navigation Signature: Carlos John MA July 12, 2024 10:41 AM Allergies As of Date: 07/12/2024 (No Known Allergies) Date Reviewed: 04/11/2024 Reviewed by: Christy Rosas APRN.OPERATIONS ACCOUNTANT - Fully Assessed Reason for Visit: Population Health Navigation Outreach [3910] Cmt: Sickle Cell Navigation Outreach Prescriptions as of 07/12/2024 - metFORMIN (GLUCOPHAGE) 500 mg tablet Take 1 tablet by mouth two times a day with meals. - ergocalciferol 50,000 unit capsule (VITAMIN D2, DRISDOL) Take 1 capsule by mouth one time a week. - tirzepatide, weight loss (ZEPBOUND) 2.5 mg/0.5 mL pen injector Inject 2.5 mg subcutaneously one time a week for 28 days, THEN 5 mg one time a week for 28 days, THEN 7.5 mg one time a week for 28 days. - buPROPion SR (WELLBUTRIN SR) 150 mg 12 hr tablet Take 1 tablet by mouth two times a day. 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 Author Type: Immunology Teacher Type: Progress Notes Filed: 06/12/2024 10:09 Note Text: POPULATION HEALTH NAVIGATION OUTREACH Action/FYI - Sickle Cell Navigation Outreach Pt is on sickle cell report and needs: Last [facility] OV: N/A Last [facility] Hematology OV: N/A Last [facility] ED Visit Date: N/A - pt on new SC list Voicemail message left and Mychart message sent offering to assist in establishing care with Hematology / PCP as needed. Reason for Outreach Medical Neighborhood: Sickle Cell Care Gaps due: Establish Care Appointment Patient Contacted: Unable or unnecessary to reach patient: Left message MyChart message sent Navigation Signature: Carlos John MA June 12, 2024 7:20 AM [facility] 06-12-2024 History of Present illness Narrative POPULATION HEALTH NAVIGATION OUTREACH Action/FYI - Sickle Cell Navigation Outreach Pt is on sickle cell report and needs: Last [facility] OV: N/A Last [facility] Hematology OV: N/A Last [facility] ED Visit Date: N/A - pt on new SC list Voicemail message left and Mychart message sent offering to assist in establishing care with Hematology / PCP as needed. Reason for Outreach Medical Neighborhood: Sickle Cell Care Gaps due: Establish Care Appointment Patient Contacted: Unable or unnecessary to reach patient: Left message ChowNowhart message sent Navigation Signature: Carlos John MA June 12, 2024 7:20 AM documented in this encounter [facility] 06-12-2024 Note Patient Outreach (NE TNAV) KARISSA ARIZA ([id number]) 1990 F Date Time Provider Department 06/12/24 CARLOS JOHN During your visit today, we recorded the following information about you: Carlos John MA 06/12/2024 10:09 AM Signed POPULATION HEALTH NAVIGATION OUTREACH Action/FYI - Sickle Cell Navigation Outreach Pt is on sickle cell report and needs: Last [facility] OV: N/A Last [facility] Hematology OV: N/A Last [facility] ED Visit Date: N/A - pt on new SC list Voicemail message left and Mychart message sent offering to assist in establishing care with Hematology / PCP as needed. Reason for Outreach Medical Neighborhood: Sickle Cell Care Gaps due: Establish Care Appointment Patient Contacted: Unable or unnecessary to reach patient: Left message MyChart message sent Navigation Signature: Carlos John MA June 12, 2024 7:20 AM Allergies As of Date: 06/12/2024 (No Known Allergies) Date Reviewed: 04/11/2024 Reviewed by: Christy Rosas APRN.OPERATIONS ACCOUNTANT - Fully Assessed Reason for Visit: Population Health Navigation Outreach [3910] Cmt: Sickle Cell Navigation Outreach Prescriptions as of 06/12/2024 - metFORMIN (GLUCOPHAGE) 500 mg tablet Take 1 tablet by mouth two times a day with meals. - ergocalciferol 50,000 unit capsule (VITAMIN D2, DRISDOL) Take 1 capsule by mouth one time a week. - tirzepatide, weight loss (ZEPBOUND) 2.5 mg/0.5 mL pen injector Inject 2.5 mg subcutaneously one time a week for 28 days, THEN 5 mg one time a week for 28 days, THEN 7.5 mg one time a week for 28 days. - buPROPion SR (WELLBUTRIN SR) 150 mg 12 hr tablet Take 1 tablet by mouth two times a day. 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 Author Type: Immunology Teacher Type: Progress Notes Filed: 05/11/2024 11:03 Note Text: POPULATION HEALTH NAVIGATION OUTREACH Action/FYI - Sickle Cell Navigation Outreach Pt is on sickle cell report and needs: Last [facility] OV: N/A Last [facility] Hematology OV: N/A Last Ophthalmology Exam: N/A Last [facility] ED Visit Date: N/A - pt on new MS list Voicemail message left and Mychart message sent offering to assist in establishing care with Hematology and PCP as needed. Reason for Outreach Medical Neighborhood: Sickle Cell Care Gaps due: Establish Care Appointment Specialty Scheduling Patient Contacted: Unable or unnecessary to reach patient: Left message ChowNowhart message sent Navigation Signature: Carlos John MA May 11, 2024 8:40 AM [facility] 05-11-2024 History of Present illness Narrative POPULATION HEALTH NAVIGATION OUTREACH Action/FYI - Sickle Cell Navigation Outreach Pt is on sickle cell report and needs: Last [facility] OV: N/A Last [facility] Hematology OV: N/A Last Ophthalmology Exam: N/A Last [facility] ED Visit Date: N/A - pt on new MS list Voicemail message left and Mychart message sent offering to assist in establishing care with Hematology and PCP as needed. Reason for Outreach Medical Neighborhood: Sickle Cell Care Gaps due: Establish Care Appointment Specialty Scheduling Patient Contacted: Unable or unnecessary to reach patient: Left message MyChart message sent Navigation Signature: Carlos John MA May 11, 2024 8:40 AM documented in this encounter [facility] 05-11-2024 Note Patient Outreach (NE TNAV) JAKELESVIAKANNAN RANDALLOPAL ([id number]) 1990 F Date Time Provider Department 05/11/24 CARLOS JOHN During your visit today, we recorded the following information about you: Carlos John MA 05/11/2024 11:03 AM Signed POPULATION HEALTH NAVIGATION OUTREACH Action/FYI - Sickle Cell Navigation Outreach Pt is on sickle cell report and needs: Last [facility] OV: N/A Last [facility] Hematology OV: N/A Last Ophthalmology Exam: N/A Last [facility] ED Visit Date: N/A - pt on new SC list Voicemail message left and Meritfulhart message sent offering to assist in establishing care with Hematology and PCP as needed. Reason for Outreach Medical Neighborhood: Sickle Cell Care Gaps due: Establish Care Appointment Specialty Scheduling Patient Contacted: Unable or unnecessary to reach patient: Left message MyChart message sent Navigation Signature: Carlos John MA May 11, 2024 8:40 AM Allergies As of Date: 05/11/2024 (No Known Allergies) Date Reviewed: 04/11/2024 Reviewed by: Christy Rosas APRN.OPERATIONS ACCOUNTANT - Fully Assessed Reason for Visit: Population Health Navigation Outreach [3910] Cmt: Sickle Cell Navigation Outreach Prescriptions as of 05/11/2024 - metFORMIN (GLUCOPHAGE) 500 mg tablet Take 1 tablet by mouth two times a day with meals. - ergocalciferol 50,000 unit capsule (VITAMIN D2, DRISDOL) Take 1 capsule by mouth one time a week. - tirzepatide, weight loss (ZEPBOUND) 2.5 mg/0.5 mL pen injector Inject 2.5 mg subcutaneously one time a week for 28 days, THEN 5 mg one time a week for 28 days, THEN 7.5 mg one time a week for 28 days. - buPROPion SR (WELLBUTRIN SR) 150 mg 12 hr tablet Take 1 tablet by mouth two times a day. 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 Christy Rosas APRN.CNP [facility] 05-01-2024 Miscellaneous Notes MC message sent and metformin prescribed. Christy Rosas APRN.CNP Per patient's insurance- patient must complete 3 months of behavior modification and diet restriction before zepbound can be approved. Patient stated that she is ok with trying metformin if zepbound is denied A new prior authorization for Zepbound was submitted with office notes to [facility]. Will await response. Bupropion is prescribed for depression and anxiety with benefit of reducing food cravings and not causing weight gain. Therefore, she is not taking any AOM. Please resubmit. Christy Rosas APRN.CNP Medication has been denied. The requested medication is covered when it is not being used concomitantly with other weight loss medications. Examples of other weight loss medications include phentermine (Lomaira, generic), benzphetamine, diethylpropion, phendimetrazine, Contrave (naltrexone/bupropion extended-release tablets), Qsymia (phentermine/topiramate extended-release capsules), Xenical (orlistat 120 mg capsules), and Anderson (orlistat 60 mg capsules). Coverage cannot be authorized at this time. Tash Romero MA Left message for patient to call office. Dulce Chang RN Please find out what the patient's co-pay is because she was not sure if she would want to pay for it. If her co-pay is acceptable to her, I will place other prescriptions. Christy Rosas APRN.SHARDA [facility] called stating they will need separate scripts for each dose of the Zepbound. They are going to fill the 2.5mg dosage for 28 days, but will need new scripts for the following dosages. FYI.Valerio Chavez RN Electronic PA submitted for Zepbound. Will await further response from pt's insurance.Inna Rodriguez LPN documented in this encounter [facility] 05-01-2024 Telephone encounter Note Per patient's insurance- patient must complete 3 months of behavior modification and diet restriction before zepbound can be approved. Patient stated that she is ok with trying metformin if zepbound is denied [facility] 04-27-2024 Telephone encounter Note A new prior authorization for Zepbound was submitted with office notes to [facility]. Will await response. [facility] 04-27-2024 Telephone encounter Note Bupropion is prescribed for depression and anxiety with benefit of reducing food cravings and not causing weight gain. Therefore, she is not taking any AOM. Please resubmit. Christy Rosas APRN.SHARDA [facility] 04-25-2024 Telephone encounter Note Medication has been denied. The requested medication is covered when it is not being used concomitantly with other weight loss medications. Examples of other weight loss medications include phentermine (Lomaira, generic), benzphetamine, diethylpropion, phendimetrazine, Contrave (naltrexone/bupropion extended-release tablets), Qsymia (phentermine/topiramate extended-release capsules), Xenical (orlistat 120 mg capsules), and Anderson (orlistat 60 mg capsules). Coverage cannot be authorized at this time. Tash Romero MA [facility] 04-18-2024 Telephone encounter Note Left message for patient to call office. Dulce Chang RN [facility] 04-17-2024 Telephone encounter Note Please find out what the patient's co-pay is because she was not sure if she would want to pay for it. If her co-pay is acceptable to her, I will place other prescriptions. Christy Rosas APRN.SHARDA [facility] 04-17-2024 Telephone encounter Note [facility] called stating they will need separate scripts for each dose of the Zepbound. They are going to fill the 2.5mg dosage for 28 days, but will need new scripts for the following dosages. CHELSEA.Valerio Chavez RN [facility] 04-11-2024 Telephone encounter Note Electronic PA submitted for Zepbound. Will await further response from pt's insurance.Inna Rodriguez LPN [facility] 04-11-2024 Instructions Christy Rosas APRN.SHARDA - 04/11/2024 8:03 AM EDT Images from the original note were not included. Esomeprazole OTC - 40 mg in the morning on an empty stomach for 2 weeks and then 20 mg. Weight Management: You have taken the initiative to become a healthier version of yourself and to decrease the risks that come with the diagnosis of obesity or being overweight. We are happy to help you along this journey but know this is a lifetime commitment to yourself. Losing just 3-10 % of your body weight can decrease your risks of many other serious diseases like diabetes, heart disease, osteoarthritis, hypertension, cancer and so many others. During this time you will have triumphs, setbacks and plateaus- your body will fight against you but we are here to give you the tools and the resources to continue to reach your goals. We recommend during this time that you track your weight daily or at least five times per week as well as tracking your nutrition. You may track your activity but do not use hitting your fitness goals as a reward system as this can derail your success. We recommend weekly physical activity of 150-200 min/week-although physical exercise, this will be especially important for weight maintenance. Exercise can have many other benefits including improving insulin resistance, improving balance, bone health, improving mental health and cardiovascular health. Do not feel overwhelmed - we will discuss this more at your visits. Our time will be limited with each visit but we will try to touch on factors that are important to you and to your overall goals. We will try to set a goal at the end of each visit and then decide on what we want to accomplish with your upcoming visits. On your After Visit Summary (AVS), we will provide you with information that may be useful during this journey so please remember to read the information given. Check your AVS a few days after your appointment because we may have added more information specifically for you. Remember that if you are placed on medications, they are tools that can help you succeed but you must put in the work. Your nutrition will be the main factor. There are medications that work well for some and not for others- so it may take time to find the right combination for your body's needs. Please remember that factors such as other health co-morbidities one might have, as well as insurance coverage, will play a factor in determining which medications you can take. Most of the newer medications that are all the craze ,injectables, may not be covered or will only be covered if you fail months of oral medications or have Type 2 diabetes so please be patient with the process. It would be beneficial for you to determine what your insurance covers as far as Anti-Obesity Medications (AOMs), Nutritional Counseling, behavioral intervention and weight loss surgery. Please call your health insurance prior to your first appointment and write down coverage for each of those therapies. Most importantly, remember that ultimately our goal is to help you get to a healthier weight which will decrease your overall health risks. We will work together as a team and try to reach your personalized goals as well. Follow-up appointments Please arrive to follow-up visits a minimum of 15 minutes prior to your appointment. Follow-up weight management visits can be virtual. You will need to report a current blood pressure, heart rate (pulse) and weight at the beginning of each virtual appointment so you will need to have a reliable BP cuff, either wrist or upper arm. If you need to reschedule your appointment time or switch from an in-office visit to a virtual visit or vice versa, you need to call our office as we have designated appointment slots. This should not be done on [employer] as you will not be scheduled appropriately and will need to be rescheduled. We appreciate that you have entrusted us with your health and know that we are committed to this process with you. Sincerely, Marisol Anaya MD, RIC ALEX & Christy Rosas CNP Advanced Education from the [employer] Obesity Obesity is a disease that affects nearly one-third of the adult [place] population (approximately 60 million). The number of overweight and obese Americans has continued to increase since 1959, a trend that is not slowing down. Today, 64.5 percent of adult Americans (about 127 million) are categorized as being overweight or obese. Each year, obesity causes at least 300,000 excess deaths in the [place] and healthcare costs of [place] adults with obesity amount to approximately $100 billion. (AOA) Obesity is a complex, multi-factorial chronic disease involving: Environmental (social and cultural) The tendency toward obesity is a result of our environment: lack of physical activity along with high-calorie, low-cost foods. Home, work, school, and even the community can inhibit a healthy lifestyle. Genetic (Hereditary plays a large role in determining how susceptible people are to overweight and obesity). Genes also influence how the body cross calories for energy and stores fat. Physiologic, metabolic, behavioral (eating too many calories while not getting enough exercise) and psychological components. It is the second leading cause of preventable in the [place] Behavioral changes brought on by economic development, modernization and urbanization have been linked to the rise in global obesity. Calculating BMI Body Mass Index (BMI) is a measurement tool used to determine excess body weight. Overweight is defined as a BMI of 25 or more, obesity is 30 or more, and severe obesity is 40 or more. You can visit www.nhlbi.nih.gov to estimate your BMI. Obesity Related Health Conditions The morbidity and mortality risk from being overweight is proportional to its degree. Individuals with morbid obesity, therefore, have the highest risk for developing numerous illnesses that often reduce mobility and quality of life due to their excess weight. In particular, type 2 diabetes, gallbladder disease and osteoarthritis have been found to increase concurrently with higher BMI. Premature , a 20-year shorter life span, has also been found in individuals with morbid obesity. All of the systems that make the body function are affected by morbid obesity. Type 2 diabetes Gallbladder disease and gallstones Liver disease Osteoarthritis, a disease in which the joints deteriorate. This is possibly the result of excess weight on the joints. Gout, another disease affecting the joints Pulmonary (breathing) problems, including sleep apnea in which a person can stop breathing for a short time during sleep Reproductive problems in women, including menstrual irregularities and infertility Gastroesophageal reflux/heartburn Hypertension Heart Disease Depression Psychological disorders/social impairments Urinary Stress Incontinence Obesity is also linked to higher rates of certain types of cancer. Obese men are more likely than non-obese men to from cancer of the colon, rectum, or prostate. Obese women are more likely than non-obese women to from cancer of the gallbladder, breast, uterus, cervix, or ovaries https://my.[facility].org/he alth/diseases/77951-zwhkey-qcidbw wvwj-wwgfakp-deqmgnezy - Eat primarily whole foods. Limit carbs, especially processed carbs. Eat - Meat, vegetables and fruits with skin on if possible, eggs, cheese. - Do not drink your calories - 30 grams of protein for your first meal of the day decreases your hunger during the day by up to 40 %. Options include: Premier Protein or generic 30 gm protein 1 gm sugar or 5 eggs or 2-3 eggs and some unbreaded meat and/or cheese. No fruit, vegetables, bread, grain, yogurt, Smoothies, etc. - Walk for 15 minutes immediately after meal. Try sweeteners such as Stevia and monkfruit/erythritol blend AM PM (early afternoon) Week 1 Bupropion SR 150 mg (1 tablet) None Week 2 Bupropion SR 150 mg (1 tablet) Bupropion SR 150 mg (1 tablet) Bupropion is a medicine that is used to treat depression and to prevent weight gain in people who are trying to quit smoking. -- avoid caffeinated beverages (i.e. coffee, tea, sports-drinks, etc) and be aware of the stimulant effects of inhalers, decongestants, etc. -- Take 1 tablet in the morning for 1-2 weeks, then increase to 1 tablet 2 times per day (in the morning and early afternoon). If you experience any adverse side effects you may decrease or stop at anytime. If you take it too late in the afternoon it may cause insomnia. Does Wellbutrin cause weight loss? It can. Bupropion (the generic form of Wellbutrin) was initially prescribed as an antidepressant. It is the only antidepressant associated with weight loss (iSobhan, 2019). Healthcare providers noticed that mostly pleasant side effect, and today bupropion is sometimes prescribed as part of a medication for weight loss (naltrexone/bupropion, brand name Contrave), as well as a stop-smoking aid (brand name Zyban). As far as the evidence that bupropion by itself causes weight loss: A 2016 study that analyzed the long-term weight loss effect of various antidepressant medications found that non-smokers who took bupropion lost 7.1 pounds over two years. (This effect was not seen in smokers). Users of the other antidepressants in the study gained weight (Arterburn, 2016). Bupropion seems to be effective for weight-loss maintenance as well. A 2012 study found that obese adults who took bupropion SR (standard release) in 300mg or 400mg doses lost 7.2% and 10% of their body weight, respectively, over 24 weeks and maintained that weight loss at 48 weeks (Blaze, 2012). And a 2019 review of 27 studies on antidepressants and weight gain found that antidepressant use increases body weight by an average of 5%--except bupropion, which is associated with weight loss (Siobhan, 2019). https://ro.co/health-guide/wellbu heon-jzq-sxhyyt-loss/ Bupropion: Patient drug information Access [employer] for additional drug information, tools, and databases. Copyright [employer]. All rights reserved. Contributor Disclosures (For additional information see Bupropion: Drug information and see Bupropion: Pediatric drug information) You must carefully read the Consumer Information Use and Disclaimer below in order to understand and correctly use this information. Brand Names: US Aplenzin; Forfivo XL; Wellbutrin SR; Wellbutrin XL; Zyban [DSC] Brand Names: Keon MYLAN-BuPROPion XL; ODAN Bupropion SR; PMS-BuPROPion SR [DSC]; TARO-Bupropion XL; TEVA-Bupropion XL; Wellbutrin SR; Wellbutrin XL; Zyban Warning Drugs like this one have raised the chance of suicidal thoughts or actions in children and young adults. The risk may be greater in people who have had these thoughts or actions in the past. All people who take this drug need to be watched closely. Call the doctor right away if signs like low mood (depression), nervousness, restlessness, grouchiness, panic attacks, or changes in mood or actions are new or worse. Call the doctor right away if any thoughts or actions of suicide occur. What is this drug used for? It is used to treat low mood (depression). It is used to prevent seasonal affective disorder (SAD). It is used to help you stop smoking. It may be given to you for other reasons. Talk with the doctor. What do I need to tell my doctor BEFORE I take this drug? If you are allergic to this drug; any part of this drug; or any other drugs, foods, or substances. Tell your doctor about the allergy and what signs you had. If you have ever had seizures. If you drink a lot of alcohol and you stop drinking all of a sudden. If you use certain other drugs like drugs for seizures or anxiety and you stop using them all of a sudden. If you have ever had an eating problem like anorexia or bulimia. If you have any of these health problems: Kidney disease or liver disease. If you have taken certain drugs for depression or Parkinson's disease in the last 14 days. This includes isocarboxazid, phenelzine, tranylcypromine, selegiline, or rasagiline. Very high blood pressure may happen. If you are taking any of these drugs: Linezolid or methylene blue. If you are taking another drug that has the same drug in it. This is not a list of all drugs or health problems that interact with this drug. Tell your doctor and pharmacist about all of your drugs (prescription or OTC, natural products, vitamins) and health problems. You must check to make sure that it is safe for you to take this drug with all of your drugs and health problems. Do not start, stop, or change the dose of any drug without checking with your doctor. What are some things I need to know or do while I take this drug? For all patients taking this drug: Tell all of your health care providers that you take this drug. This includes your doctors, nurses, pharmacists, and dentists. Avoid driving and doing other tasks or actions that call for you to be alert or have clear eyesight until you see how this drug affects you. This drug may affect certain lab tests. Tell all of your health care providers and lab workers that you take this drug. Do not stop taking this drug all of a sudden without calling your doctor. You may have a greater risk of side effects. If you need to stop this drug, you will want to slowly stop it as ordered by your doctor. High blood pressure has happened with this drug. Have your blood pressure checked as you have been told by your doctor. This drug may raise the chance of seizures. The risk may be higher in people who take higher doses, have certain health problems, or take certain other drugs. People who suddenly stop drinking a lot of alcohol or suddenly stop taking certain drugs (like drugs used for anxiety, sleep, or seizures) may also have a higher risk. Talk to your doctor to see if you have a greater chance of seizures. Avoid drinking alcohol while taking this drug. Talk with your doctor before you use marijuana, other forms of cannabis, or prescription or OTC drugs that may slow your actions. It may take several weeks to see the full effects. This drug is not approved for use in children. Talk with the doctor. If you are 65 or older, use this drug with care. You could have more side effects. Tell your doctor if you are , plan on getting , or are breast-feeding. You will need to talk about the benefits and risks to you and the baby. If you smoke: Not all products are approved for use to help stop smoking. Talk with the doctor to make sure that you have the right product. New or worse mental, mood, or behavior problems have happened when bupropion has been used to stop smoking. These problems include thoughts of suicide or murder, depression, forceful actions, fury, anxiety, and anger. These problems have happened in people with and without a history of mental or mood problems. Talk with the doctor. What are some side effects that I need to call my doctor about right away? WARNING/CAUTION: Even though it may be rare, some people may have very bad and sometimes deadly side effects when taking a drug. Tell your doctor or get medical help right away if you have any of the following signs or symptoms that may be related to a very bad side effect: Signs of an allergic reaction, like rash; hives; itching; red, swollen, blistered, or peeling skin with or without fever; wheezing; tightness in the chest or throat; trouble breathing, swallowing, or talking; unusual hoarseness; or swelling of the mouth, face, lips, tongue, or throat. Signs of high blood pressure like very bad headache or dizziness, passing out, or change in eyesight. Feeling confused, not able to focus, or change in behavior. Hallucinations (seeing or hearing things that are not there). If seizures are new or worse after starting this drug. Chest pain or pressure, a fast heartbeat, or an abnormal heartbeat. Swelling. Shortness of breath. Change in hearing. Ringing in ears. Passing urine more often. Swollen gland. Trouble moving around. Some people may have a higher chance of eye problems with this drug. Your doctor may want you to have an eye exam to see if you have a higher chance of these eye problems. Call your doctor right away if you have eye pain, change in eyesight, or swelling or redness in or around the eye. A severe skin reaction (Powell-Watson syndrome/toxic epidermal necrolysis) may happen. It can cause severe health problems that may not go away, and sometimes . Get medical help right away if you have signs like red, swollen, blistered, or peeling skin (with or without fever); red or irritated eyes; or sores in your mouth, throat, nose, or eyes. What are some other side effects of this drug? All drugs may cause side effects. However, many people have no side effects or only have minor side effects. Call your doctor or get medical help if any of these side effects or any other side effects bother you or do not go away: All products: Dizziness or headache. Constipation, diarrhea, stomach pain, upset stomach, throwing up, or feeling less hungry. Shakiness. Feeling nervous and excitable. Strange or odd dreams. Gas. Dry mouth. Trouble sleeping. Muscle or joint pain. Nose or throat irritation. Sweating a lot. A change in weight without trying. Extended-release tablets: For some brands, you may see the tablet shell in your stool. For these brands, this is normal and not a cause for concern. If you have questions, talk with your doctor. These are not all of the side effects that may occur. If you have questions about side effects, call your doctor. Call your doctor for medical advice about side effects. You may report side effects to your national health agency. How is this drug best taken? Use this drug as ordered by your doctor. Read all information given to you. Follow all instructions closely. For all uses of this drug: Do not take this drug more often than you are told. This may raise the risk of seizures. Be sure you know how far apart to take your doses. Take in the morning if taking once a day. Take with or without food. If you are not able to sleep, do not take this drug too close to bedtime. Talk with your doctor. Swallow whole. Do not chew, break, or crush. Keep taking this drug as you have been told by your doctor or other health care provider, even if you feel well. If you have trouble swallowing, talk with your doctor. For stopping smoking: You may take this drug for 1 week before you stop smoking. Nicotine products and counseling may be used at the same time for best results. If you have not been able to quit smoking after taking this drug for 12 weeks, talk with your doctor. You may have signs of nicotine withdrawal when you try to quit smoking even when using drugs like this one to help you quit smoking. There are many signs of nicotine withdrawal. Rarely depression and suicidal thoughts have happened in people trying to quit smoking. Talk with your doctor. What do I do if I miss a dose? Skip the missed dose and go back to your normal time. Do not take 2 doses at the same time or extra doses. How do I store and/or throw out this drug? Store at room temperature protected from light. Store in a dry place. Do not store in a bathroom. Keep all drugs in a safe place. Keep all drugs out of the reach of children and pets. Throw away unused or drugs. Do not flush down a toilet or pour down a drain unless you are told to do so. Check with your pharmacist if you have questions about the best way to throw out drugs. There may be drug take-back programs in your area. General drug facts If your symptoms or health problems do not get better or if they become worse, call your doctor. Do not share your drugs with others and do not take anyone else's drugs. Some drugs may have another patient information leaflet. If you have any questions about this drug, please talk with your doctor, nurse, pharmacist, or other health care provider. If you think there has been an overdose, call your poison control center or get medical care right away. Be ready to tell or show what was taken, how much, and when it happened. Last Reviewed [id number] Consumer Information Use and Disclaimer This generalized information is a limited summary of diagnosis, treatment, and/or medication information. It is not meant to be comprehensive and should be used as a tool to help the user understand and/or assess potential diagnostic and treatment options. It does NOT include all information about conditions, treatments, medications, side effects, or risks that may apply to a specific patient. It is not intended to be medical advice or a substitute for the medical advice, diagnosis, or treatment of a health care provider based on the health care provider's examination and assessment of a patient's specific and unique circumstances. Patients must speak with a health care provider for complete information about their health, medical questions, and treatment options, including any risks or benefits regarding use of medications. This information does not endorse any treatments or medications as safe, effective, or approved for treating a specific patient. [employer]. and its affiliates disclaim any warranty or liability relating to this information or the use thereof. The use of this information is governed by the Terms of Use, available at https://www.Clicks2Customerser.com/en/ know/aedlcnfq-aeliiownwxlnv-cxldz . 2021 [employer]. and its affiliates and/or licensors. All rights reserved. TIRZEPATIDE (ZEPBOUND) Tirzepatide is a new combination drug (mimics 2 gut hormones, GLP1 and GIP) which has demonstrated superior weight loss >20% body wt loss after 72 week randomized controlled study. It's only approved for diabetes currently, but likely will have approval for weight/obesity next year. Below is more information on it as we discussed. Tirzepatide delays gastric emptying and has the potential to alter absorption of oral medications. This is important in patients taking narrow therapeutic index drugs or drugs that need a minimum blood level for efficacy. If you are taking oral contraceptives switch to a non-oral contraceptive method or add a barrier contraceptive method for 4 weeks after initiation of tirzepatide and for 4 weeks after each dose escalation. Video Instructions for Injecting Mounjaro: https://www.youfarmhoppingube.com/watch?v=n xnhBdyTSZ0 Savings Card: https://www.[employer]/savings- resources Link to The[employer] Services Worker Website Etix Medication Guide: https://pi.WILEX.Teikon/us/mounjaro- us-mg.pdf?s=mg Written pen instructions: https://uspl.WILEX.com/mounjaro/m ounjaaubrie.html#ug0 Tirzepatide: Patient drug information What is Mounjaro? Mounjaro is an injectable prescription medicine that is used along with diet and exercise to improve blood sugar (glucose) in adults with type 2 diabetes mellitus. It is not known if Mounjaro can be used in people who have had inflammation of the pancreas (pancreatitis). Mounjaro is not for use in people with type 1 diabetes. It is not known if Mounjaro is safe and effective for use in children under 18 years of age. It works in multiple ways. It helps: - THE BODY RELEASE INSULIN WHEN BLOOD SUGAR IS HIGH - THE BODY REMOVE EXCESS SUGAR FROM THE BLOOD - STOP THE LIVER FROM MAKING AND RELEASING TOO MUCH SUGAR - REDUCE HOW MUCH FOOD IS EATEN - SLOW DOWN HOW QUICKLY FOOD LEAVES THE STOMACH. THIS LESSENS OVER TIME. You can learn about possible side effects of Mounjaro here. Select Safety Information Changes in vision. Tell your healthcare provider if you have changes in vision during treatment with Mounjaro PURPOSE AND SAFETY SUMMARY WITH WARNINGS Important Facts About Mounjaro ([id number]). It is also known as tirzepatide. Mounjaro is an injectable prescription medicine for adults with type 2 diabetes used along with diet and exercise to improve blood sugar (glucose). It is not known if Mounjaro can be used in people who have had inflammation of the pancreas (pancreatitis). Mounjaro is not for use in people with type 1 diabetes. It is not known if Mounjaro is safe and effective for use in children under 18 years of age. Warnings Mounjaro may cause tumors in the thyroid, including thyroid cancer. Watch for possible symptoms, such as a lump or swelling in the neck, hoarseness, trouble swallowing, or shortness of breath. If you have a symptom, tell your healthcare provider. Do not use Mounjaro if you or any of your family have ever had a type of thyroid cancer called medullary thyroid carcinoma (MTC). Do not use Mounjaro if you have Multiple Endocrine Neoplasia syndrome type 2 (MEN 2). Do not use Mounjaro if you are allergic to tirzepatide or any of the ingredients in Mounjaro. Mounjaro may cause serious side effects, including: Inflammation of the pancreas (pancreatitis). Stop using Mounjaro and call your healthcare provider right away if you have severe pain in your stomach area (abdomen) that will not go away, with or without vomiting. You may feel the pain from your abdomen to your back. Low blood sugar (hypoglycemia). Your risk for getting low blood sugar may be higher if you use Mounjaro with another medicine that can cause low blood sugar, such as a sulfonylurea or insulin. Signs and symptoms of low blood sugar may include dizziness or light-headedness, sweating, confusion or drowsiness, headache, blurred vision, slurred speech, shakiness, fast heartbeat, anxiety, irritability, or mood changes, hunger, weakness and feeling jittery. Serious allergic reactions. Stop using Mounjaro and get medical help right away if you have any symptoms of a serious allergic reaction, including swelling of your face, lips, tongue or throat, problems breathing or swallowing, severe rash or itching, fainting or feeling dizzy, and very rapid heartbeat. Kidney problems (kidney failure). In people who have kidney problems, diarrhea, nausea, and vomiting may cause a loss of fluids (dehydration), which may cause kidney problems to get worse. It is important for you to drink fluids to help reduce your chance of dehydration. Severe stomach problems. Stomach problems, sometimes severe, have been reported in people who use Mounjaro. Tell your healthcare provider if you have stomach problems that are severe or will not go away. Changes in vision. Tell your healthcare provider if you have changes in vision during treatment with Mounjaro. Gallbladder problems. Gallbladder problems have happened in some people who use Mounjaro. Tell your healthcare provider right away if you get symptoms of gallbladder problems, which may include pain in your upper stomach (abdomen), fever, yellowing of skin or eyes (jaundice), and alan-colored stools. Common side effects The most common side effects of Mounjaro include nausea, diarrhea, decreased appetite, vomiting, constipation, indigestion, and stomach (abdominal) pain. These are not all the possible side effects of Mounjaro. Talk to your healthcare provider about any side effect that bothers you or doesn't go away. Tell your healthcare provider if you have any side effects. You can report side effects at 0-171-LIP-2540 or www.fda.gov/medwatch. Before using Your healthcare provider should show you how to use Mounjaro before you use it for the first time. Before you use Mounjaro, talk to your healthcare provider about low blood sugar and how to manage it. Review these questions with your healthcare provider: Do you have other medical conditions, including problems with your pancreas or kidneys, or severe problems with your stomach, such as slowed emptying of your stomach (gastroparesis) or problems digesting food? Do you take other diabetes medicines, such as insulin or sulfonylureas? Do you have a history of diabetic retinopathy? Are you or plan to become or or plan to breastfeed? It is not known if Mounjaro will harm your unborn baby. Do you take control pills by mouth? These may not work as well while using Mounjaro. Your healthcare provider may recommend another type of control when you start Mounjaro or when you increase your dose. Do you take any other prescription medicines or batb-mbz-zkvthik drugs, vitamins, or herbal supplements? How to take Read the Instructions for Use that come with Mounjaro. Use Mounjaro exactly as your healthcare provider says. Mounjaro is injected under the skin (subcutaneously) of your stomach (abdomen), thigh, or upper arm. Use Mounjaro 1 time each week, at any time of the day. Do not mix insulin and Mounjaro together in the same injection. If you take too much Mounjaro, call your healthcare provider or seek medical advice promptly. Learn more For more information, call 8-146-UqpsjUx ( ) or go to www.[employer]. This information does not take the place of talking with your healthcare provider. Be sure to talk to your healthcare provider about Mounjaro and how to take it. Your healthcare provider is the best person to help you decide if Mounjaro is right for you. Mounjaro and its delivery device base are trademarks owned or licensed by [employer], its subsidiaries, or affiliates. BRITTANY GONZALEZ [employer] [id number] Access [employer] for additional drug information, tools, and databases. Copyright 4174-9451 [employer]. All rights reserved. Contributor Disclosures (For additional information see Tirzepatide: Drug information) You must carefully read the Consumer Information Use and Disclaimer below in order to understand and correctly use this information. Brand Names: [place] Mounjaro Warning This drug has been shown to cause thyroid cancer in some animals. It is not known if this happens in humans. If thyroid cancer happens, it may be deadly if not found and treated early. Call your doctor right away if you have a neck mass, trouble breathing, trouble swallowing, or have hoarseness that will not go away. Do not use this drug if you have a health problem called Multiple Endocrine Neoplasia syndrome type 2 (MEN 2), or if you or a family member have had thyroid cancer. Have your blood work checked and thyroid ultrasounds as you have been told by your doctor. What is this drug used for? It is used to lower blood sugar in patients with high blood sugar (diabetes). What do I need to tell my doctor BEFORE I take this drug? If you are allergic to this drug; any part of this drug; or any other drugs, foods, or substances. Tell your doctor about the allergy and what signs you had. If you have type 1 diabetes. Do not use this drug to treat type 1 diabetes. If you have ever had pancreatitis. If you have stomach or bowel problems. This is not a list of all drugs or health problems that interact with this drug. Tell your doctor and pharmacist about all of your drugs (prescription or OTC, natural products, vitamins) and health problems. You must check to make sure that it is safe for you to take this drug with all of your drugs and health problems. Do not start, stop, or change the dose of any drug without checking with your doctor. What are some things I need to know or do while I take this drug? Tell all of your health care providers that you take this drug. This includes your doctors, nurses, pharmacists, and dentists. Wear disease medical alert ID (identification). Follow the diet and workout plan that your doctor told you about. Check your blood sugar as you have been told by your doctor. Do not drive if your blood sugar has been low. There is a greater chance of you having a crash. control pills may not work as well to prevent . If you take control pills, you may need to switch to another type of hormone-based control like a vaginal ring if your doctor tells you to. If another type of hormone-based control is not an option, use some other kind of control also, like a condom. Do this for 4 weeks after starting this drug and for 4 weeks each time the dose is raised. This drug may prevent other drugs taken by mouth from getting into the body. If you take other drugs by mouth, you may need to take them at some other time than this drug. Talk with your doctor. It may be harder to control blood sugar during times of stress such as fever, infection, injury, or surgery. A change in physical activity, exercise, or diet may also affect blood sugar. Talk with your doctor before you drink alcohol. Do not share with another person even if the needle has been changed. Sharing your tray or pen may pass infections from one person to another. This includes infections you may not know you have. If you cannot drink liquids by mouth or if you have upset stomach, throwing up, or diarrhea that does not go away; you need to avoid getting dehydrated. Contact your doctor to find out what to do. Dehydration may lead to new or worse kidney problems. A severe and sometimes deadly pancreas problem (pancreatitis) has happened with other drugs like this one. Tell your doctor if you are , plan on getting , or are breast-feeding. You will need to talk about the benefits and risks to you and the baby. What are some side effects that I need to call my doctor about right away? WARNING/CAUTION: Even though it may be rare, some people may have very bad and sometimes deadly side effects when taking a drug. Tell your doctor or get medical help right away if you have any of the following signs or symptoms that may be related to a very bad side effect: Signs of an allergic reaction, like rash; hives; itching; red, swollen, blistered, or peeling skin with or without fever; wheezing; tightness in the chest or throat; trouble breathing, swallowing, or talking; unusual hoarseness; or swelling of the mouth, face, lips, tongue, or throat. Signs of kidney problems like unable to pass urine, change in how much urine is passed, blood in the urine, or a big weight gain. Signs of gallbladder problems like pain in the upper right belly area, right shoulder area, or between the shoulder blades; yellow skin or eyes; fever with chills; bloating; or very upset stomach or throwing up. Signs of a pancreas problem (pancreatitis) like very bad stomach pain, very bad back pain, or very bad upset stomach or throwing up. Dizziness or passing out. A fast heartbeat. Change in eyesight. Low blood sugar can happen. The chance may be raised when this drug is used with other drugs for diabetes. Signs may be dizziness, headache, feeling sleepy or weak, shaking, fast heartbeat, confusion, hunger, or sweating. Call your doctor right away if you have any of these signs. Follow what you have been told to do for low blood sugar. This may include taking glucose tablets, liquid glucose, or some fruit juices. What are some other side effects of this drug? All drugs may cause side effects. However, many people have no side effects or only have minor side effects. Call your doctor or get medical help if any of these side effects or any other side effects bother you or do not go away: Constipation, diarrhea, stomach pain, upset stomach, throwing up, or feeling less hungry. Heartburn. These are not all of the side effects that may occur. If you have questions about side effects, call your doctor. Call your doctor for medical advice about side effects. You may report side effects to your national health agency. How is this drug best taken? Use this drug as ordered by your doctor. Read all information given to you. Follow all instructions closely. It is given as a shot into the fatty part of the skin on the top of the thigh, belly area, or upper arm. If you will be giving yourself the shot, your doctor or nurse will teach you how to give the shot. Keep taking this drug as you have been told by your doctor or other health care provider, even if you feel well. Take the same day each week. Move site where you give the shot each time. Take with or without food. Wash your hands before and after use. Do not use if the solution is leaking or has particles. This drug is colorless to a faint yellow. Do not use if the solution changes color. If you are also using insulin, you may inject this drug and the insulin in the same area of the body but not right next to each other. Do not mix this drug in the same syringe with insulin. Do not move this drug from the pen to a syringe. Each pen is for one use only. Throw away any part of the used pen after the dose is given. Throw away needles in a needle/sharp disposal box. Do not reuse needles or other items. When the box is full, follow all local rules for getting rid of it. Talk with a doctor or pharmacist if you have any questions. What do I do if I miss a dose? If it is within 4 days after the missed dose, take the missed dose and go back to your normal day. If it has been more than 4 days since the missed dose, skip the missed dose and go back to your normal day. Do not take 2 doses at the same time or extra doses. How do I store and/or throw out this drug? Store in a refrigerator. Do not freeze. Do not use if it has been frozen. If needed, each pen may be stored at room temperature for up to 21 days. If you store at room temperature, throw away any part not used after 21 days. Protect from heat. Store in the original container to protect from light. Keep all drugs in a safe place. Keep all drugs out of the reach of children and pets. Throw away unused or drugs. Do not flush down a toilet or pour down a drain unless you are told to do so. Check with your pharmacist if you have questions about the best way to throw out drugs. There may be drug take-back programs in your area. General drug facts If your symptoms or health problems do not get better or if they become worse, call your doctor. Do not share your drugs with others and do not take anyone else's drugs. Some drugs may have another patient information leaflet. If you have any questions about this drug, please talk with your doctor, nurse, pharmacist, or other health care provider. If you think there has been an overdose, call your poison control center or get medical care right away. Be ready to tell or show what was taken, how much, and when it happened. Last Reviewed [id number] Consumer Information Use and Disclaimer This generalized information is a limited summary of diagnosis, treatment, and/or medication information. It is not meant to be comprehensive and should be used as a tool to help the user understand and/or assess potential diagnostic and treatment options. It does NOT include all information about conditions, treatments, medications, side effects, or risks that may apply to a specific patient. It is not intended to be medical advice or a substitute for the medical advice, diagnosis, or treatment of a health care provider based on the health care provider's examination and assessment of a patient's specific and unique circumstances. Patients must speak with a health care provider for complete information about their health, medical questions, and treatment options, including any risks or benefits regarding use of medications. This information does not endorse any treatments or medications as safe, effective, or approved for treating a specific patient. [employer]. and its affiliates disclaim any warranty or liability relating to this information or the use thereof. The use of this information is governed by the Terms of Use, available at https://www.Infolinks.com/en/ know/cieiiafe-gfbpamowviegu-gleuf . METFORMIN Dosing -- Begin Metformin 500 mg with dinner daily x 1 week. If you are experiencing any GI side effects, do not increase dose for 1-4 weeks. If tolerating, you can increase to 2 tablets with dinner daily. Taking the medication with food will help. -- if you experience any GI upset (Nausea, diarrhea, bloating, gas) you can go back to 1 tablet or hold the medication until it resolves. Once you are tolerating the medication you can try increasing it again. -- we can discuss increasing the dose further at your follow up visit. -- Metformin can interfere with the absorption of B12 in your food, please add a B12 1,000-2,400 mcg supplement and I suggest having it checked every 1-2 years Using Metformin for weight loss: Metformin helps to lower blood glucose levels by reducing the amount of glucose produced and released by the liver, and by increasing insulin sensitivity. It has now been proven to prevent or delay diabetes. Metformin and Type 2 Diabetes Prevention Diabetes Spectrum (diabetesjournals.org) Large cohort studies have shown weight loss benefits associated with metformin therapy. Emerging evidence suggests that metformin-associated weight loss is due to modulation of hypothalamic appetite-regulatory centers, alteration in the gut microbiome, and reversal of consequences of aging. Metformin is also being explored in the management of obesity s sequelae such as hepatic steatosis, obstructive sleep apnea and osteoarthritis. Effectiveness of metformin on weight loss in non-diabetic individuals with obesity - PubMed (nih.gov) Is metformin a wonder drug? - [facility] Common side effects of this medication include nausea, changes in bowel habits, abdominal discomfort, and flatulence. Taking the medication with food will help. Side effects also typically get better with time. Rarely, a severe side effect called lactic acidosis can occur. If you experience malaise, muscle aches, difficulty breathing, or severe abdominal pain, please seek immediate medical attention. Metformin: Patient drug information Warning Rarely, metformin may cause too much lactic acid in the blood (lactic acidosis). The risk is higher in people who have kidney problems, liver problems, heart failure, use alcohol, or take other drugs like topiramate. The risk is also higher in people who are 65 or older and in people who are having surgery, an exam or test with contrast, or other procedures. If lactic acidosis happens, it can lead to other health problems and can be deadly. Kidney tests may be done while taking this drug. Do not take this drug if you have a very bad infection, low oxygen, or a lot of fluid loss (dehydration). Call your doctor right away if you have signs of too much lactic acid in the blood (lactic acidosis) like fast breathing, fast or slow heartbeat, a heartbeat that does not feel normal, very bad upset stomach or throwing up, feeling very sleepy, shortness of breath, feeling very tired or weak, very bad dizziness, feeling cold, or muscle pain or cramps. What is this drug used for? It is used to lower blood sugar in patients with high blood sugar (diabetes), treatment for PCOS, What do I need to tell my doctor BEFORE I take this drug? If you are allergic to this drug; any part of this drug; or any other drugs, foods, or substances. Tell your doctor about the allergy and what signs you had. If you have any of these health problems: Acidic blood problem, kidney disease, or liver disease. If you have had a recent heart attack or stroke. If you are not able to eat or drink like normal, including before certain procedures or surgery. If you are having an exam or test with contrast or have had one within the past 48 hours, talk with your doctor. This is not a list of all drugs or health problems that interact with this drug. Tell your doctor and pharmacist about all of your drugs (prescription or OTC, natural products, vitamins) and health problems. You must check to make sure that it is safe for you to take this drug with all of your drugs and health problems. Do not start, stop, or change the dose of any drug without checking with your doctor. What are some things I need to know or do while I take this drug? All products: Tell all of your health care providers that you take this drug. This includes your doctors, nurses, pharmacists, and dentists. Talk with your doctor before you drink alcohol. Do not drive if your blood sugar has been low. There is a greater chance of you having a crash. Check your blood sugar as you have been told by your doctor. Have blood work checked as you have been told by the doctor. Talk with the doctor. It may be harder to control blood sugar during times of stress such as fever, infection, injury, or surgery. A change in physical activity, exercise, or diet may also affect blood sugar. Follow the diet and workout plan that your doctor told you about. If diarrhea happens or you are throwing up, call your doctor. You will need to drink more fluids to keep from losing too much fluid. Be careful in hot weather or while being active. Drink lots of fluids to stop fluid loss. Long-term treatment with metformin may lead to low vitamin B-12 levels. If you have ever had low vitamin B-12 levels, talk with your doctor. If you are 65 or older, use this drug with care. You could have more side effects. There is a chance of in people of childbearing age who have not been ovulating. If you want to avoid , use control while taking this drug. Tell your doctor if you are , plan on getting , or are breast-feeding. You will need to talk about the benefits and risks to you and the baby. What are some side effects that I need to call my doctor about right away? WARNING/CAUTION: Even though it may be rare, some people may have very bad and sometimes deadly side effects when taking a drug. Tell your doctor or get medical help right away if you have any of the following signs or symptoms that may be related to a very bad side effect: Signs of an allergic reaction, like rash; hives; itching; red, swollen, blistered, or peeling skin with or without fever; wheezing; tightness in the chest or throat; trouble breathing, swallowing, or talking; unusual hoarseness; or swelling of the mouth, face, lips, tongue, or throat. It is common to have stomach problems like upset stomach, throwing up, or diarrhea when you start taking this drug. If you have stomach problems later during treatment, call your doctor right away. This may be a sign of an acid health problem in the blood (lactic acidosis). Low blood sugar can happen. The chance may be raised when this drug is used with other drugs for diabetes. Signs may be dizziness, headache, feeling sleepy or weak, shaking, fast heartbeat, confusion, hunger, or sweating. Call your doctor right away if you have any of these signs. Follow what you have been told to do for low blood sugar. This may include taking glucose tablets, liquid glucose, or some fruit juices. What are some other side effects of this drug? All drugs may cause side effects. However, many people have no side effects or only have minor side effects. Call your doctor or get medical help if any of these side effects or any other side effects bother you or do not go away: Stomach pain or heartburn. Gas. Diarrhea, upset stomach, or throwing up. Feeling tired or weak. Headache. These are not all of the side effects that may occur. If you have questions about side effects, call your doctor. Call your doctor for medical advice about side effects. You may report side effects to your national health agency. How is this drug best taken? Use this drug as ordered by your doctor. Read all information given to you. Follow all instructions closely. All products: Take with meals. Keep taking this drug as you have been told by your doctor or other health care provider, even if you feel well. documented in this encounter [facility] 04-11-2024 Note HNO ID: [id number] Author: CHRISTY ROSAS APRN.SHARDA Service: ? Author Type: Nurse Practitioner Type: Progress Notes Filed: 04/11/2024 19:15 Note Text: Patient Summary: Karissa Ariza is a 33 year old female with obesity who presents for an initial evaluation of overweight/obesity to treat and prevent co-morbidities and is interested in combination of behavioral and pharmacological. Motivation for seeking treatment for the disease of overweight/obesity : improve health, have another child, and increase confidence Goal weight: 180 lb Lowest recall weight: 170 lb Highest non- recall weight: 232 Patient identified barriers to weight loss: lack of exercise, food choices Weight History: She reports a family history of obesity and early adulthood weight gain. She states her weight gain is related to the following factors, including weight retention , reduced physical activity, and consumption of unhealthy foods. Difficulty losing weight? History of weight loss with regain? - Last Wt 04/11/24 : 105.2 kg (232 lb) 5% weight loss = 220 lbs, 10% weight loss = 209 lbs WEIGHT GRAPH: Diet/Nutrition overview: Awake - 0545-06 0900 - coffee with sugar B - 10 - bread or cookie S - coffee with sugar L - 1300 - leftovers or rice and beans and a little chicken S - coffee or frozen iced coffee to sip on. Sometimes meat and cheese empanada or bread with PB D - 1700 - larger portion of rice and beans and chicken/prot or fired plantain or pasta with hotdogs/ground beef/tomato sauce or chicken noodle soup or Brouillon soup - potato/carrot and greens and sometimes beef. Dessert - sometimes [employer] cereal and milk S - 8-9 pm [employer] cereal and milk or fried plantain with meat or pizza or chips Fluids: coffee or frozen iced coffee, regular soda, a little water Bedtime - 2330 Quality of diet: 24hr recall suggests somewhat unhealthy diet. Characterization of diet:Unstructured, unhealthy snacking, excessive cravings, evening snacking, and increased consumption of sugar sweetened beverages. Housekeeping Attendant of impaired eating habits:excessive hunger, lack of satiety, mindlessness , and stress Eating Disorder no Cravings: sugary drinks, salty crunchy foods Sleep Duration: 5 -6 hours during week/ WE 8-9 hours JESUS NO ; CPAP NO Stress Stress:yes , Cause: Work, personal Obesity Related Comorbidities: Prior Weight Loss Surgery:No PAST MEDICAL HISTORY Diagnosis Date Cervical high risk human papillomavirus (HPV) DNA test positive 01/2024 Gastroduodenal ulcer 2009 treated with Nexium, H pylori GERD (gastroesophageal reflux disease) H/O sickle cell anemia Hiatal hernia Obesity PCOS (polycystic ovarian syndrome) 2014 PAST SURGICAL HISTORY Procedure Laterality Date EGD W/O BRSH SPEC VARICIES INJ X2 INSERTION OF IUD removed 02/11/2024 FAMILY HISTORY Problem Relation Age of Onset Arthritis Mother Obesity Mother No Known Problems Father No Known Problems Sister No Known Problems Brother No Known Problems Maternal Grandmother No Known Problems Maternal Grandfather No Known Problems Paternal Grandmother No Known Problems Paternal Grandfather Social History Tobacco Use Smoking status: Never Smokeless tobacco: Never Vaping Use Vaping Use: Never used Substance Use Topics Alcohol use: Never Drug use: Never AOM Medications: none Weight Promoting Medications: none Diet/weight loss History: Past weight loss attempts? self-directed,- walking after meals, MyFitnessPal Exercise: Regular exercise: no Strength/resistance exercise:no Barriers to regular exercise? 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 Waist Circumference: 45.25 in Neck Circumference: 15.5 in GENERAL: Female in NAD. General adiposity. SKIN: acanthosis nigricans yes , Skin tags: no Hirsutism: no HEENT: PERRL, No supraclavicular adiposity. No dorsal adiposity. RESPIRATORY: CBTA CARDIAC: RRR ABDOMEN: Protuberant ; EXTREMITIES: peripheral edema: no Results: reviewed with the patient Results Only on 01/13/2024 Component Date Value Ref Range Status Hemoglobin A1C 01/13/2024 5.0 4.3 - 5.6 % Final (more content not included)... [facility] 04[facility] History of Present illness Narrative Images from the original note were not included. Patient Summary: Karissa Ariza is a 33 year old female with obesity who presents for an initial evaluation of overweight/obesity to treat and prevent co-morbidities and is interested in combination of behavioral and pharmacological. Motivation for seeking treatment for the disease of overweight/obesity : improve health, have another child, and increase confidence Goal weight: 180 lb Lowest recall weight: 170 lb Highest non- recall weight: 232 Patient identified barriers to weight loss: lack of exercise, food choices Weight History: She reports a family history of obesity and early adulthood weight gain. She states her weight gain is related to the following factors, including weight retention , reduced physical activity, and consumption of unhealthy foods. Difficulty losing weight? History of weight loss with regain? - Last Wt 04/11/24 : 105.2 kg (232 lb) 5% weight loss = 220 lbs, 10% weight loss = 209 lbs WEIGHT GRAPH: Diet/Nutrition overview: Awake - 0545-06 0900 - coffee with sugar B - 10 - bread or cookie S - coffee with sugar L - 1300 - leftovers or rice and beans and a little chicken S - coffee or frozen iced coffee to sip on. Sometimes meat and cheese empanada or bread with PB D - 1700 - larger portion of rice and beans and chicken/prot or fired plantain or pasta with hotdogs/ground beef/tomato sauce or chicken noodle soup or Brouillon soup - potato/carrot and greens and sometimes beef. Dessert - sometimes [place] Flakes cereal and milk S - 8-9 pm [employer]akes cereal and milk or fried plantain with meat or pizza or chips Fluids: coffee or frozen iced coffee, regular soda, a little water Bedtime - 2330 Quality of diet: 24hr recall suggests somewhat unhealthy diet. Characterization of diet:Unstructured, unhealthy snacking, excessive cravings, evening snacking, and increased consumption of sugar sweetened beverages. Housekeeping Attendant of impaired eating habits:excessive hunger, lack of satiety, mindlessness , and stress Eating Disorder no Cravings: sugary drinks, salty crunchy foods Sleep Duration: 5 -6 hours during week/ WE 8-9 hours JESUS NO ; CPAP NO Stress Stress:yes , Cause: Work, personal Obesity Related Comorbidities: Prior Weight Loss Surgery:No PAST MEDICAL HISTORY Diagnosis Date Cervical high risk human papillomavirus (HPV) DNA test positive 01/2024 Gastroduodenal ulcer 2009 treated with Nexium, H pylori GERD (gastroesophageal reflux disease) H/O sickle cell anemia Hiatal hernia Obesity PCOS (polycystic ovarian syndrome) 2014 PAST SURGICAL HISTORY Procedure Laterality Date EGD W/O BRSH SPEC VARICIES INJ X2 INSERTION OF IUD removed 02/11/2024 FAMILY HISTORY Problem Relation Age of Onset Arthritis Mother Obesity Mother No Known Problems Father No Known Problems Sister No Known Problems Brother No Known Problems Maternal Grandmother No Known Problems Maternal Grandfather No Known Problems Paternal Grandmother No Known Problems Paternal Grandfather Social History Tobacco Use Smoking status: Never Smokeless tobacco: Never Vaping Use Vaping Use: Never used Substance Use Topics Alcohol use: Never Drug use: Never AOM Medications: none Weight Promoting Medications: none Diet/weight loss History: Past weight loss attempts? self-directed,- walking after meals, [employer]itness[employer] Exercise: Regular exercise: no Strength/resistance exercise:no Barriers to regular exercise? 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 Obesity ROS/ FHx GEN: Fatigue:no CV: h/o palpitations/cardiac arrhythmia, Chest pain: no (upper GI issues - if heartburn, may vomit and then have chest pain) HTN: no PULM: Asthma:no GI: GERD:yes ; Gallstones:no ; Fatty liver disease:no Pancreatitis: no MSK: Joint Pain:no : Nephrolithiasis: no PCOS: yes NEURO: Migraines/ESCAMILLA: yes ; H/o seizures: no Glaucoma:no; Cataracts no Symptoms of or History of pseudotumor cerebri:no Family or personal History of MEN2 or Medullary thyroid cancer: no PE BP 109/72 Pulse 76 Ht 171.5 cm (5' 7.5) Wt 105.2 kg (232 lb) SpO2 99% BMI 35.80 kg/m Waist Circumference: 45.25 in Neck Circumference: 15.5 in GENERAL: Female in NAD. General adiposity. SKIN: acanthosis nigricans yes , Skin tags: no Hirsutism: no HEENT: PERRL, No supraclavicular adiposity. No dorsal adiposity. RESPIRATORY: CBTA CARDIAC: RRR ABDOMEN: Protuberant ; EXTREMITIES: peripheral edema: no Results: reviewed with the patient Results Only on 01/13/2024 Component Date Value Ref Range Status Hemoglobin A1C 01/13/2024 5.0 4.3 - 5.6 % Final Estimated Average Glucose 01/13/2024 97 mg/dL Final Protein, Total 01/13/2024 7.2 6.3 - 8.0 g/dL Final Albumin 01/13/2024 4.1 3.9 - 4.9 g/dL Final Calcium, Total 01/13/2024 9.5 8.5 - 10.2 mg/dL Final Bilirubin, Total 01/13/2024 0.7 0.2 - 1.3 mg/dL Final Alkaline Phosphatase 01/13/2024 78 34 - 123 U/L Final AST 01/13/2024 10 (L) 13 - 35 U/L Final ALT 01/13/2024 12 7 - 38 U/L Final Glucose 01/13/2024 100 (H) 74 - 99 mg/dL Final BUN 01/13/2024 10 7 - 21 mg/dL Final Creatinine 01/13/2024 0.82 0.58 - 0.96 mg/dL Final Sodium 01/13/2024 140 136 - 144 mmol/L Final Potassium 01/13/2024 4.0 3.7 - 5.1 mmol/L Final Chloride 01/13/2024 108 (H) 97 - 105 mmol/L Final CO2 01/13/2024 25 22 - 30 mmol/L Final Anion Gap 01/13/2024 7 (L) 9 - 18 mmol/L Final Estimated Glomerular Filtration Ra* 01/13/2024 97 >=60 mL/min/1.73m Final Prolactin 01/13/2024 7.9 4.5 - 26.8 ng/mL Final TSH 01/13/2024 1.490 0.270 - 4.200 mIU/L Final Impression: Karissa Ariza is a 33 year old Female with Class II obesity (Body mass index is 35.8 kg/m .) who has early adulthood obesity with gradual weight gain despite several weight loss attempts. The causes of her obesity are multifactorial, biological, psychological and social and environmental. Specific factors include increased consumption of high calorie/process foods, irregular eating patterns , suboptimal physical activity, and post weight retention. She has no significant weight-related medical comorbidities which increase her cardiovascular mortality risk. There are additional metabolic obesity complications including PCOS. Other medical conditions as above. Regarding her lifestyle, as above, she has several behavioral contributors; her physical activity is non-existent. Overall, it is clear that her quality of life is moderately compromised by her weight. It is likely a combination of weight loss therapies will be needed. She appears motivated today. ASSESSMENT/PLAN: 1. Gastroesophageal reflux disease without esophagitis - ICD9: 530.81, ICD10: K21.9 (primary diagnosis) - increase esomeprazole to 40 mg day for 2 weeks - TIRZEPATIDE (WEIGHT LOSS) 2.5 MG/0.5 ML SUBCUTANEOUS PEN INJECTOR 2. IFG (impaired fasting glucose) - ICD9: 790.21, ICD10: R73.01 - INSULIN ASSAY BLOOD - TIRZEPATIDE (WEIGHT LOSS) 2.5 MG/0.5 ML SUBCUTANEOUS PEN INJECTOR 3. PCOS (polycystic ovarian syndrome) - ICD9: 256.4, ICD10: E28.2 - INSULIN ASSAY BLOOD - TIRZEPATIDE (WEIGHT LOSS) 2.5 MG/0.5 ML SUBCUTANEOUS PEN INJECTOR 4. Depression with anxiety - ICD9: 300.4, ICD10: F41.8 - BUPROPION HCL SR 150 MG TABLET,12 HR SUSTAINED-RELEASE 5. Craving for particular food - ICD9: 783.9, ICD10: R63.8 - BUPROPION HCL SR 150 MG TABLET,12 HR SUSTAINED-RELEASE 6. Screening cholesterol level - ICD9: V77.91, ICD10: Z13.220 - LIPID PANEL BASIC 7. Screening for deficiency anemia - ICD9: V78.1, ICD10: Z13.0 - COMPLETE BLOOD COUNT 8. Screening for diabetes mellitus - ICD9: V77.1, ICD10: Z13.1 - INSULIN ASSAY BLOOD 9. Encounter for vitamin deficiency screening - ICD9: V77.99, ICD10: Z13.21 - VITAMIN D 25 HYDROXY 10. Class 2 severe obesity with serious comorbidity and body mass index (BMI) of 36.0 to 36.9 in adult, unspecified obesity type (HCC) - ICD9: 278.01, V85.36, ICD10: E66.01, Z68.36 Weight increasing Plan: -- Based on the severity and resistance of the obesity/overweight with co-morbidities, I believe a combination of behavioral and pharmacological intervention is the best and most appropriate intermission coordinator therapeutic option. - VITAMIN D 25 HYDROXY - INSULIN ASSAY BLOOD - COMPLETE BLOOD COUNT - LIPID PANEL BASIC - TIRZEPATIDE (WEIGHT LOSS) 2.5 MG/0.5 ML SUBCUTANEOUS PEN INJECTOR - 2.5 mg subcutaneously one time a week for 28 days, THEN 5 mg one time a week for 28 days, THEN 7.5 mg one time a week for 28 days. Interested in adding Zepbound (tirzepetide) for treatment of obesity today. Denies family history of thyroid cancer, MEN2 or pancreatitis. Educated on increased risk for inflammation of the pancreas (pancreatitis), gallbladder problems (including gallstones), low blood sugar, acute kidney injury, diabetic retinopathy (damage to the eye's retina), increased heart rate and suicidal behavior or thinking. Prescription sent today and detailed instructions on how to use the pen provided in the patient instructions. Patient also referred to www.zepbound.Red Zebra for injection training video and encouraged to reach out if in-person pen training is needed. - If Zepbound nor covered or she decides against starting it, will begin metformin now. If Zepbound is started, will prescribe Apri DWIGHT. - BUPROPION HCL SR 150 MG TABLET,12 HR SUSTAINED-RELEASE Bupropion: Discussed risks/benefits with the patient. Patient aware that this is an off-label use of the medication. No uncontrolled high BP, seizure disorders or drug/alcohol withdrawal, current or history of anorexia nervosa/bulimia or acute angle-closure glaucoma. Educated that bupropion can increase the risk of suicide in children, adolescents and young adults 24 years of age and younger, can increase blood pressure, cause decrease in cognition brain fog and has been associated with an increased risk of acute angle-closure glaucoma. Bupropion can also assist in smoking cessation. -- We discussed several strategies to track food intake and increase mindfulness around eating while will decrease calorie intake. She was counseled on the following: Eating primarily whole foods. Limit carbs, especially processed carbs. Do not drink your calories 30 grams of protein for breakfast decreases your hunger during the day by up to 40 % Premier Protein or generic 30 gm protein 1 gm sugar Walk for 15 minutes immediately a meal. -- Encouraged the patient to improve her physical activity. Although cardiovascular exercise is most beneficial for weight loss initially, we discussed healthy muscle from a combination of resistance training and cardiovascular exercise is the best intermission coordinator plan. An overall goal of 150-200 minutes per week of exercise has been effective in weight loss and maintenance. -- Reviewed that monitoring weight daily and food intake can have a positive impact on overall weight loss and maintenance of weight loss. Activity tracking can be used to stay on target for exercise however should not be used to reward oneself She understands that there can be limitations of pharmacotherapy due to contraindications, side effects and cost. Patient was told to contact her insurance company to see what AOMs and supervised behavioral medical appointments are currently covered. Patient understands she will have more success when following a healthy lifestyle. We reviewed continued use of online tracking of daily weights, food journal and if desired physical activity. We reviewed that during management she is to report any concerning side effects of any pharmacotherapy she is placed on. She understands that she will need routine follow up in the office. Prior to any virtual visits in the future she will need to check her Blood pressure, weight, and pulse. Prescription instructions reviewed with patient as applicable. Potential red flag symptoms discussed with the patient. Reviewed appropriate action plan to take if red flag symptoms occur. Patient agreeable to treatment plan. -- follow-up visit in 5-6 weeks for management of above interventions If Zepbound nor covered or is not started, will begin metformin. If Zepbound is started, will prescribe Apri. Christy Rosas CNP Advanced Education from the [employer]esity [employer] I spent a total of 95 minutes on the date of the service which included preparing to see the patient, [id number] patient care, completing clinical documentation, obtaining and/or reviewing separately obtained history, performing a medically appropriate examination, counseling and educating the patient/family/caregiver, and ordering medications, tests, or procedures. documented in this encounter [facility] 02-11-2024 Instructions Yancy Rodriguez APRN.CNP - 02/11/2024 8:46 AM EDT What is HPV? Human papilloma virus or HPV is a very common virus. There are about 40 types of HPV that can infect the genitals or sex organs of men and women. HPV is so common that most people get it at some time in their lives. HPV usually causes no symptoms and most people do not know that they have it. Certain types of HPV can cause genital warts. Some types of HPV can cause changes on a woman's cervix that can lead to cervical cancer over time. Most of the time, the body's immune systems fights off HPV naturally within two years-before HPV causes any health problems. How is HPV Prevented? The only way to avoid HPV totally would be to never be sexually active.Limiting sexual partners and using condoms each time you have sex is helpful.In addition, there is a vaccine that protects against some of the HPV strains that cause genital warts or cervical cancer. This vaccine is approved for women ages 9-26.It does not prevent against all types of HPV and does not prevent you from getting other sexually transmitted diseases. How could I get HPV? HPV is passed on through genital (skin to skin) contact, most often during vaginal or anal sex. HPV may also be passed on during oral sex. All women who have ever been sexually active are at risk of ko HPV. HPV is NOT the same as HIV (the aids virus) or herpes. All viruses can be passed on during sex. But they do not cause the same symptoms or health problems. Most people never know that they have HPV or that they are passing it to their partner. It may not be possible to know who gave you HPV or when you got it. HPV is so common that most people get it soon after they start having sex. It may only be found years later. Can HPV Be Treated? There is no cure for HPV. Most of the time your body fights the virus on its own. If the infection causes genital warts or cervical cancer there are treatments for these problems, but not for HPV itself. Even after these conditions are treated, HPV can stay in your body and be passed on to sexual partners. How do I talk to my partner about HPV? HPV testing is not recommended for men, nor is it recommended for finding HPV on the genitals or in the mouth or throat. The body usually fights off the HPV naturally before it causes health problems. Partners who have been together for a while tend to share HPV. This means that your partner likely has HPV already, even though they have no signs or symptoms. Having HPV does NOT mean that you or your partner is having sex outside the relationship. There is no sure way to know when you got HPV or who gave it to you. A person can have HPV for many years before it is found. documented in this encounter [facility] 02-11-2024 Telephone encounter Note There are no Prolactin results in [employer]. [facility] 02-11-2024 Miscellaneous Notes There are no Prolactin results in [employer]. Is there anything in [facility] about a high prolactin level? Was being followed by [facility] for this. Yancy Rodriguez APRN.SHARDA documented in this encounter [facility] 02-11-2024 Telephone encounter Note Is there anything in [employer] about a high prolactin level? Was being followed by [facility] for this. Yancy Rodriguez APRN.CNP [facility] 02-11-2024 History of Present illness Narrative [facility] Registration Specialist offered: Patient declines. Karissa presents for removal of IUD due to incorrect position. UNIVERSAL PROTOCOL / SAFETY CHECKLIST Procedure to be Performed: IUD Removal Sign In: A Moment of CARE was completed. Personnel directly involved with the procedure wore the appropriate PPE (Personal Protective Equipment). Patient/Surrogate Stated/Verified: PATIENT VERIFIED(optional for EMERGENT procedures): Patient name, Date of , Relevant allergies, and The intended procedure Time Out Communication: Intended patient and procedure match the source documents. Consent documented and matches the intended procedure. Sign Out: SIGN OUT (optional for EMERGENT procedures): No specimen collected. All instruments, equipment, possible retained foreign bodies accounted for. Post-procedure follow-up management communicated and Plan of Care Visit completed when applicable. PROCEDURE: Speculum placed in vagina, IUD string visualized and grasped with ring forceps. ASSESSMENT/PLAN: IUD removed without difficulty, intact, and patient tolerated procedure well. Contraception plans: condoms/abstinence Reviewed return of fertility and return of menses. May be irregular at first. RTO to discuss Zoloft, prolactin follow up HPV, Metformin/PCOS either virtually or in person. Yancy Rodriguez APRN.CNP documented in this encounter [facility] 01-28-2024 History of Present illness Narrative Radiology Service Progress Note PATIENT NAME: Karissa Ariza DATE OF SERVICE: January 28, 2024 TIME: 7:50 AM PATIENT IDENTITY VERIFICATION COMPLETED USING TWO (2) IDENTIFIERS: Name and Date of confirmed by patient verbally. FALL SCREENING: Has the patient had 2 falls in the last year or 1 fall with injury or currently using an Ambulatory Assistive Device (Walker, Cane, Wheelchair, Crutches, etc.)? No PATIENT GENDER DATA: Female. status: : No status: NO. PATIENT RELEVANT IMPLANT DATA REVIEWED: Not Applicable PATIENT PRESENTS WITH AN IMPLANTABLE OR ATTACHED ETL BI DEVELOPER: No RADIOLOGY DEPARTMENT: Ultrasound PERIPHERAL IV DATA: Not applicable SIGNED BY: Swetha Ortiz RDMS January 28, 2024 7:50 AM documented in this encounter [facility] 01-24-2024 Telephone encounter Note Snap Trends message sent to patient with information and instructions. Hetal Santos RN [facility] 01-24-2024 Miscellaneous Notes Zayot message sent to patient with information and instructions. Hetal Santos RN Please notify patient by phone: HPV HR+, pap normal. Repeat pap in 1 year. Recommend living as healthy lifestyle as possible so body can fight off HPV. Recommend HPV vaccine if she hasn't had it already. Sometimes insurance doesn't cover after age 26. Recommend she calls her insurance to verify before proceeding. Yancy Rodriguez APRN.SHARDA documented in this encounter [facility] 01-24-2024 Telephone encounter Note Please notify patient by phone: HPV HR+, pap normal. Repeat pap in 1 year. Recommend living as healthy lifestyle as possible so body can fight off HPV. Recommend HPV vaccine if she hasn't had it already. Sometimes insurance doesn't cover after age 26. Recommend she calls her insurance to verify before proceeding. Yancy Rodriguez APRN.CNP [facility] 01-14-2024 Miscellaneous Notes Addended by: YANCY RODRIGUEZ on: 01/14/2024 09:51 AM Modules accepted: Orders Filed. Please confirm partner's allergies if not already done. Yancy Rodriguez APRN.CNP Addended by: CHAYITO CEDENO on: 01/14/2024 08:53 AM Modules accepted: Orders Patient called back requesting treatment for partner. Please file expedited partner treatment orders too. . Chayito Cedeno RN Patient notified of results, verbalizes understanding of instructions. Health department form faxed. Hetal Santos RN Please notify patient: Culture positive for chlamydia. To treat with Doxycyline twice a day for 7 days. Partner should be treated. No intercourse during treatment or for 7 days after. Please notify health department. Yancy Rodriguez APRN.CNP documented in this encounter [facility] 01-13-2024 Instructions Yancy Rodriguez APRN.CNP - 01/13/2024 8:32 AM EDT A 3-dose schedule is recommended for people who get the first dose on or after their 15th birthday, and for people with certain immunocompromising conditions. In a 3-dose series, the second dose should be given 1-2 months after the first dose, and the third dose should be given 6 months after the first dose (0, 1-2, 6-month schedule). The minimum intervals are 4 weeks between the first and second dose, 12 weeks between the second and third doses, and 5 months between the first and third doses. If a vaccine dose is administered after a shorter interval, it should be re-administered after another minimum interval has elapsed since the most recent dose. If the vaccination schedule is interrupted, vaccine doses do not need to be repeated (no maximum interval). Here are some links for wonderful Providers here in the community and surrounding areas. Do not hesitate to contact their offices, many are offering virtual visits during this time. 4-725-5-MRLX3HJGC - [facility] Mental Health Hotline If you are in suicidal crisis, please call or text 0-329-807-TALK ( ) or visit the National Suicide Prevention Lifeline website. [facility]gov [facility] Psychology, Psychiatry, Counseling Connect with therapist/ can do virtual visits [phone] Referral to the [facility] To schedule an appointment, please call the Center for [facility] Health Appointment Line: [phone] option 1 [facility] - [place], [place] [address] [place] [address] [facility] [address] [place] [address] [facility] [address] [place] [address] [facility] [address] [place], [place] [id number] Hector Butler MD [address] [place], [place] [id number] [facility] [address], [address] [place] [address] [facility] [address] [place] [address] [facility] [place] [facility] [place] [phone]/ [phone] Mayelin Anthony [address] [facility] [phone] [facility] [place] [facility] [place] [phone] [facility] [address] [place] [address]/ [place] [phone] Ryanne Calvo, HEAD CAGER, CLC [facility] Workshops, telehealth and at home visits. [phone] [facility] counseling [place] 20 locations [place], [place], [place], [place], [place], [place], [place], [facility], [place], [place], [place], [place], [place], [place], [facility], [place], [place] ,[facility], [place], [place],[facility], [facility], [place], [facility], [facility], [place]ickie www.[facility] [phone] Psychotherapy resources outside of [facility] are listed below [facility] WebStart [place] [facility] Web: https://www.Yogurt3D Engine/ Support International Online Provider Directory https://WebAction/ [facility] https://Intrinsic LifeSciences/ Partners for Behavioral Health and Wellness Web: https://Flodesign Sonics/ Evryx Technologies for Effective Living Web: https://www.GCI Comliving.Teikon/ LifeStance Web: https://MedTel.com.Teikon/location/s angel/[place]/ [facility] Web: https://www.signaturehealthinc.or / [facility] Web: https://uSpeak.org/ Recovery Resources Mental health and substance abuse help Web: https://www.GreenItaly1.org & RESOURCES Support International Direct peer support and connection to professional resources Non-Emergency Helpline Phone: / Text: [phone] Web: https://www..net/ Online Provider Directory: https://Perfect Audience.Teikon/ Online Support Meetings: https://www..net/get-he lp/aye-qjwkwl-jehsccz-meetings/ SSUAN Baby and Resident Buyer Services Web: https://VeriCorder Technology/ Tagasauris Expert information on medication use during and Text: [phone] Web: https://GitHub/ NATIONAL REGISTRY FOR PSYCHIATRIC MEDICATIONS Currently studying the safety of antidepressants, ADHD medications and atypical antipsychotics taken during TO PARTICIPATE CALL TOLL-FREE: Web: https://[facility].org/re search/pregnancyregistry/ Support Groups: [facility]- Follow on facebook Baby Bistro support group led by [facility] department [facility] M[facility] - Support Group [facility].org The POEM support group [phone] Www.poPlacements.ioonline.org Follow on facebook - POEM juárez chapter Online support meetings PSI https://www..net/get-he lp/kdw-wdsjgw-duujktx-meetings/ [facility] mommy and me virtual support group 11:30-1pm Support for mothers and new babies and toddlers [facility] education: Childbirth @cc.org or call [phone] CRISIS: CRISIS HOTLINE [phone], 911 or go to the nearest [facility] [phone] / [facility] [phone] https://www.[facility] hospital[facility].org Crisis text line text the word HOME to [address] [facility] [address] [facility] [address] www.Medical Breakthroughs Fund.Teikon Maryann Elena clinical counseling [address] [facility] [address] [place] [address] www.Cofio Software.Teikon [phone] Holding space psychotherapy Claudine Burk COATER ASSOCIATE SOLID WASTE TRUCK DRIVER-S [address] [facility] www.3DMGAME [phone]/ Charmaine [phone] They all offer virtual. All work with trauma Support groups Online support meetings PSI https://www..net/get-he lp/znq-woduup-durnhrz-meetings/ Here are the support groups they offer: Support of parents of 1 to 4 years old children POEM ( Outreach and Encouragement for Moms) offers free support for mothers experiencing depression, anxiety, and other mood and anxiety disorders. Masks are recommended but not required. No pre-registration required. Babies in arms welcome. meetings now take place on the and Wednesday of each month Location: [facility] [address] [place] [address] Room 122 (library room) 7-8:00 p.m. When you enter the [facility] parking lot off of [address] the entrance door closest to our meeting room is on the front of the building toward the right. For those who are more comfortable with a virtual platform, POEM offers online support group options several days of the week. To register for an online group or to find out more about POEM, website at: https://mhaohio.org/get-help/[facility] centervmfv-kbzpkz-qxhfdi/poem-services/ offer a confidential helpline: private [employer] group is called POSAMANTHA Cerda Here are the groups they offer: Traumatic childbirth resources: Http://pattch.org/ https://www.wadeMontrue Technologiesfariba Debteye.Teikon/ documented in this encounter [facility] 01-13-2024 History of Present illness Narrative Graves Registration Specialist offered: Patient declines. Karissa is a 33 year old who presents for an annual gynecologic exam with complaints, of weight gain ~ 30 lbs over a year . Liletta IUD was placed about 2 years. She is thinking about removing the IUD due to possible weight gain and considering , but she is also interested in weight management before becoming . She also has a sharp pain to the right lower abdomen, intermittent, lasting a couple of seconds, that occurs randomly. She also states she has a history of high prolactin and thinks she had some sort of tumor on her brain that was being followed by Dr. Esqueda of [facility]. She had visual changes at one time which have now resolved. She had insurance issues and did not have follow up on this. She has also been struggling with her mental health. She was on Zoloft for depression and came off on her own in May. She has felt her symptoms return. Denies thoughts of self harm or harming others. Menses: no menses - Liletta IUD Contraception: IUD HPV vaccine: unknown Last Pap: unknown HPV: unknown History of abnormal pap: No Last mammogram: never Sexually active: Yes History of STDS: None History of PCOS: Yes Pain with intercourse: No Postcoital bleeding: No Exercise: none OB History No obstetric history on file. Ticket Writer History LMP: IUD Age at Menarche: Age at First : Age at Menopause: Ticket Writer History Comments: Sexual Activity: Yes; Male Contraception: I.U.D. History reviewed. No pertinent past medical history. PAST SURGICAL HISTORY Procedure Laterality Date NONE FAMILY HISTORY Problem Relation Age of Onset No Known Problems Mother No Known Problems Father No Known Problems Sister No Known Problems Brother No Known Problems Maternal Grandmother No Known Problems Maternal Grandfather No Known Problems Paternal Grandmother No Known Problems Paternal Grandfather SOCIAL HISTORY Social History Tobacco Use Smoking status: Never Smokeless tobacco: Never Vaping Use Vaping Use: Never used Substance Use Topics Alcohol use: Never Drug use: Never REVIEW OF SYSTEMS Abdomen: No abdominal pain, nausea, vomiting, diarrhea, or constipation. No bloating, early satiety, indigestion, or increased flatulence. Bladder: No dysuria, gross hematuria, urinary frequency, urinary urgency, or incontinence. Breast: No breast lumps, nipple d/c, overlying skin changes, redness or skin retraction. Allergies and current medication updated:Yes EXAM: BP 120/72 Ht 5' 7 (1.70m) Wt 229 lb 12.8 oz (104.2kg) BMI 35.98 kg/(m^2). GENERAL: pleasant, female in no apparent distress HEENT: Normocephalic, atraumatic, mucus membranes moist, and no lesions NECK: Supple, full range of motion, and no adenopathy DERMATOLOGY: Normal, without lesions, non-icteric, and non-hirsute BREAST: soft, non-tender, symmetric, no dominant mass, normal nipple-areolar complex, no lymphadenopathy, and no nipple discharge CHEST: Normal inspiratory effort ABDOMEN: soft, non-tender, and no masses PELVIC: external genitalia normal, normal Bartholin's glands, urethra, Parachute's glands, no vulvar lesions, no cervical lesions, good vaginal support, physiologic discharge present, normal appearing perineal body and perianal region + IUD strings visible BIMANUAL: uterus normal size, shape and consistency, no adnexal masses, and non-tender RECTOVAGINAL: deferred. NEURO: alert and oriented x3,exam grossly non-focal EXTREMITIES: normal ASSESSMENT/PLAN: 1) Health maintenance: Pap done with HPV. Nutrition, exercise and routine health maintenance exams reviewed. HPV vaccine: interested, literature given 2) Contraception: IUD. Contraceptive options reviewed and information provided. 3) STD screening: Accepts STD screening 4) Follow up one year or sooner as needed PCOS (polycystic ovarian syndrome) - ICD9: 256.4, ICD10: E28.2 - Prior diagnosis - Reviewed possibility of irregular cycles again without IUD, risk of hyperplasia - Reviewed PCOS as a metabolic disorder and its increased risks for insulin resistance, diabetes, obesity, hyperlipidemia, and hypertension - To discuss with her partner her reproductive plans - Consider leaving IUD in and managing weight vs removal and attempting - Reviewed increased risks of obesity in - Interested in starting Metformin, will obtain CMP to assess kidney function before starting - HEMOGLOBIN A1C - COMPREHENSIVE METABOLIC PANEL - CONSULT TO [facility] WEIGHT MANAGEMENT PROGRAM - PROLACTIN Class 2 obesity with body mass index (BMI) of 35.0 to 35.9 in adult, unspecified obesity type, unspecified whether serious comorbidity present - ICD9: 278.00, V85.35, ICD10: E66.9, Z68.35 - Recommend walking for 15 minutes after meals - Recommend increased protein intake - CONSULT TO [facility] WEIGHT MANAGEMENT PROGRAM Pelvic pain in female - ICD9: 625.9, ICD10: R10.2 - US FEMALE PELVIS TRANSVAG Depression, unspecified depression type - ICD9: 311, ICD10: F32.A - Wants to trial low dose Zoloft again - Counselor list provided - Denies thoughts of self harm or harming others - Reviewed risks and benefits. Patient to go to ER with suicidal thoughts or thoughts of harming others. Discussed will likely take 4-6 weeks to notice full effect. Reviewed that symptoms can become worse before better. RTO in 4 weeks to assess Zoloft efficacy. Plan for pelvic ultrasound. Follow up with [facility] weight management. Yancy Rodriguez APRN.CNP Medical Decision Making: Problems: Moderate: 2+ stable chronic illnesses, 1+ chronic illnesses with change and New problem with uncertain prognosis Data: Unique test(s) ordered: 3+ Risk: Low: Low risk from testing/treatment Moderate: Drug management Medical Decision Making Level: 4 - Moderate documented in this encounter [facility] 01-06-2024 Miscellaneous Notes Called patient. She was unable to answer the questions at this time. She will call back when she is free. Maryann Bryant MA documented in this encounter [facility] 11-30-2021 Note [facility] Medical Records Department [address] [place] [address] History Physical Exam 11/30/21 0806 MR#: [id number] Acct: [id number] Name: KEAGANFRANDYJONH Rep #: [id number] : 1990 31 From: Zaheer Quinn MD PCP: Care Physician,No Primary Status:ADM IN Location: [id number] History and Physical Date of Admission: 11/30/21 ACOG ANTEPARTUM RECORD - HISTORY AND PHYSICAL (11/30/2021) Name: KARISSA PERDOMO History of this : This is a 31 year old [id number] presents at 40 wks + 4 days gestation in active labor. OB Physician: TYRA ESQUEDA MD [place]'s Physician: UNDECIDED ................................. ................................. .... : 1990 Age: 31 [address]: [address] [place] [address] Phone: (H) [phone] (O) [phone] Insurance Carrier: [employer] [id number] Emergency Contact: MARY EDWARDS [phone] ................................. ................................. .... Final JACQUE: 11/26/21 By Ultrasound: 16 weeks PARITY: (G-Total Pregnancies P-Fullterm,Premature,Induced AB,Spont AB, Ectopics, Multiple,Living) JACQUE CONFIRMATION: By LMP: 02/15/21 Final JACQUE: 11/26/21 OB PROBLEM LIST: EPDS score at NOB visit= 16 Enc office classes. Absent atrial septum , s/p MFM consult. echo wnl, atrial septum visualized. Follow up Peds Cardio 1-2 weeks GI consult for hematemesis , saw Friend all wnl Sickle Cell Trait ALLERGIES: No Known Allergies MEDICATIONS: Pepcid 20 mg tablet One pill by mouth twice a day 28 mg iron-800 mcg tablet One pill by mouth once a day Tums 200 mg calcium (500 mg) chewable tablet Zofran 4 mg tablet 1 PO every four to six hours PRN Nausea SOCIAL HISTORY: Smoking - Never Alcohol Use - denies drinking Diet - balanced Diet, one cup coffee and Water intake- < 60 cc. 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 Enc to take 15-20 min walks most days. 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 Illicit Drug Use - denies use of street drugs Sexual Activity - Residence - Lives w/ a roommate Place of - [facility] Hours Worked - FT Spouse-Sig Other Name - Seda Arredondo Spouse-Sig Other Occupation - MD in [employer] [facility] [employer] PRIOR DELIVERY HISTORY DEL DATE GEST LAB WT LB WT OZ TYPE ANES LABOR TX ANTEPARTUM FLOW CHART VISIT GE RTC FU F F DC U U DATE WK MD WKS HT PN HR M SS BP ED WT DC GL D EF ST __ ____ ___ __ __ ___ __ __ __ ___ __ __ __ ___ __ 25 Feb 40 JM 1 40 V + + 120/68 0 216 - - 1 18 Feb 39 JMW 1 38 + + 118/64 216 - - 1 50 -2 10 Feb 38 JM 1 38 V + + 109/67 0 213 tr - 04 Feb 37 JM 1 37 V + + 124/74 0 214 - - Oct JM 1 36 V + + 116/70 0 - - Oct JM 1 35 V + + 116/62 0 211 - - 07 Oct JM 2 33 V + + O 110/62 0 205 - - Oct 03 JM 2 31 V on + 100/62 0 204 08 Oct 01 JM 2 29 - + + 118/64 0 202 tr - Aug 28 JM 4 25 - + + 108/58 0 194 - - 26 Jul 26 4 - - on + 110/60 0 190 tr - Jul 24 4 21 - + ? 100/58 0 190 ne ne ANTEPARTUM NOTE(S): Nov 28 2021: Nov 21 2021: Doing Well and Good FM Nov 13 2021: reviewed FM, SROM, and labor Nov 07 2021: Oct 31 2021: doing well Oct 24 2021: doing well Oct 10 2021: doing well Sep 24 2021: see note Sep 10 2021: doing well Aug 12 2021: Jul 29 2021: feelng well. Glucola given. AM Jul 15 2021: see note COMPREHENSIVE ANTEPARTUM NOTE(S): Nov 28 2021: Louceline is 40w2d here for PNV. Good FM. No edema. States she has been feeling some period like cramps since about 5am this morning. BR Nov 28 2021: 40 weeks, cervical exam 1 cm. Cramping. Scheduled for induction of labor weeks Cytotec 7 PM. Nov 21 2021: Louceline is 39w2d here for PNV good FM no edema. Doing well no concerns. Would like cervix checked. BR Nov 13 2021: 38wks, no complaints. Nov 07 2021: Louceline is 37w2d here for PNV doing well no concerns or complaints. Good FM. No edema. Slight contractions. Still need urine sample. BR Nov 07 2021: 37wks, GBS negative. Nov 03 2021: H taken to OB. tkg Oct 31 2021: Louceline is 36w2d here for PNV with FOB. Good FM no edema. doing well has no concerns or complaints. Still need urine sample. BR Oct 31 2021: 36 weeks, GBS collected today. Oct 24 2021: Louceline is 35w6d here for PNV. Good FM. No edema. No concerns or questions at this time. Still need a urine sample. BR Oct 24 2021: 35 weeks, for clarification her FINAL JACQUE: 11/26/21 as previously documented. now in [place] TAE Oct (more content not included)... [facility] Evaluation note Diagnosis Onset Date Acid reflux acute Heartburn during a cute Nausea & vomiting acute Vaginal delivery acute [facility] Work Phone: Evaluation note* Diagnosis Encounter for gynecological examination (general) (routine) without abnormal findings- Primary Screening for cervical cancer Screening for malignant neoplasm of the cervix Encounter for screening for human papillomavirus (HPV) Special screening examination for human papillomavirus (HPV) Encounter for IUD removal Encounter for removal of intrauterine contraceptive device PCOS (polycystic ovarian syndrome) Polycystic ovaries Class 2 obesity with body mass index (BMI) of 35.0 to 35.9 in adult, unspecified obesity type, unspecified whether serious comorbidity present Pelvic pain in female Unspecified symptom associated with female genital organs Screening examination for STD (sexually transmitted disease) Screening examination for venereal disease Screening for thyroid disorder Depression, unspecified depression type [facility] Diagnosis Chlamydial infection Unspecified chlamydial infection, in conditions classified elsewhere and of unspecified site documented [facility]* Diagnosis Cervical high risk HPV (human papillomavirus) test positive Cervical high risk human papillomavirus (HPV) DNA test positive documented [facility]* Diagnosis Pelvic pain in female Unspecified symptom associated with female genital organs [facility] Diagnosis Encounter for IUD removal- Primary Encounter for removal of intrauterine contraceptive device [facility]* Diagnosis Gastroesophageal reflux disease without esophagitis- Primary Esophageal reflux IFG (impaired fasting glucose) Impaired fasting glucose PCOS (polycystic ovarian syndrome) Polycystic ovaries Depression with anxiety Dysthymic disorder Craving for particular food Screening cholesterol level Screening for lipoid disorders Screening for deficiency anemia Screening for other and unspecified deficiency anemia Screening for diabetes mellitus Encounter for vitamin deficiency screening Screening for other and unspecified endocrine, nutritional, metabolic, and immunity disorders Class 2 severe obesity with serious comorbidity and body mass index (BMI) of 36.0 to 36.9 in adult, unspecified obesity type (HCC) documented [facility]* Diagnosis PCOS (polycystic ovarian syndrome)- Primary Polycystic ovaries IFG (impaired fasting glucose) Impaired fasting glucose Class 2 severe obesity with serious comorbidity and body mass index (BMI) of 36.0 to 36.9 in adult, unspecified obesity type (HCC) documented [facility]* Diagnosis PCOS (polycystic ovarian syndrome) Polycystic ovaries IFG (impaired fasting glucose) Impaired fasting glucose Class 2 severe obesity with serious comorbidity and body mass index (BMI) of 36.0 to 36.9 in adult, unspecified obesity type (HCC) documented in this encounter [facility] note* Diagnosis Encounter for supervision of high risk in first trimester, antepartum- Primary 8 weeks gestation of state, incidental Dichorionic diamniotic twin in first trimester Twin , antepartum with uncertain dates in first trimester History of episiotomy History of sickle cell anemia Personal history of diseases of blood and blood-forming organs Language barrier Social maladjustment History of gastrointestinal ulcer Hiatal hernia Diaphragmatic hernia without mention of obstruction or gangrene History of depression Nausea and vomiting during History of chlamydia Personal history of other infectious and parasitic disease Constipation during in first trimester Heartburn during in first trimester Obesity affecting in first trimester, unspecified obesity type Depression with anxiety Dysthymic disorder documented in this encounter [facility] note* Diagnosis Encounter for supervision of high risk in first trimester, antepartum- Primary 12 weeks gestation of state, incidental documented in this encounter [facility] note* Diagnosis Heartburn during in first trimester documented in this encounter [facility] note* Diagnosis Encounter for supervision of high risk in second trimester, antepartum- Primary 16 weeks gestation of state, incidental Dichorionic diamniotic twin in second trimester Twin , antepartum Obesity affecting in second trimester, unspecified obesity type History of episiotomy History of sickle cell anemia Personal history of diseases of blood and blood-forming organs Supervision of high risk in second trimester Unspecified high-risk Need for influenza vaccination Need for prophylactic vaccination and inoculation against influenza documented in this encounter [facility] note* Diagnosis Dichorionic diamniotic twin in first trimester- Primary Twin , antepartum History of sickle cell anemia Personal history of diseases of blood and blood-forming organs Depression with anxiety Dysthymic disorder Obesity affecting in second trimester, unspecified obesity type Encounter for anatomic survey Sickle cell trait (HCC) Sickle-cell trait History of depression 19 weeks gestation of - Primary state, incidental Obesity affecting in second trimester, unspecified obesity type Dichorionic diamniotic twin in second trimester Twin , antepartum Supervision of high risk in second trimester Unspecified high-risk * Assessment & Plan Note - Noemi Brush MD - 12/05/2024 2:07 PM ESTAssociated Problem(s): Sickle cell trait (HCC) Urine culture qtrimester documented in this encounter [facility] note* Diagnosis Encounter for anatomic survey- Primary 19 weeks gestation of state, incidental Dichorionic diamniotic twin in first trimester Twin , antepartum Dichorionic diamniotic twin in first trimester- Primary Twin , antepartum History of sickle cell anemia Personal history of diseases of blood and blood-forming organs Depression with anxiety Dysthymic disorder Obesity affecting in second trimester, unspecified obesity type Encounter for anatomic survey Sickle cell trait (HCC) Sickle-cell trait History of depression 19 weeks gestation of - Primary state, incidental Obesity affecting in second trimester, unspecified obesity type Dichorionic diamniotic twin in second trimester Twin , antepartum Supervision of high risk in second trimester Unspecified high-risk documented in this encounter [facility] note* Diagnosis Dichorionic diamniotic twin in first trimester- Primary Twin , antepartum History of sickle cell anemia Personal history of diseases of blood and blood-forming organs Depression with anxiety Dysthymic disorder Obesity affecting in second trimester, unspecified obesity type Encounter for anatomic survey Sickle cell trait (HCC) Sickle-cell trait History of depression 19 weeks gestation of - Primary state, incidental Obesity affecting in second trimester, unspecified obesity type Dichorionic diamniotic twin in second trimester Twin , antepartum Supervision of high risk in second trimester Unspecified high-risk * Assessment & Plan Note - Fern Mary MD - 12/05/2024 3:25 PM ESTAssociated Problem(s): Obesity affecting in second trimester * Assessment & Plan Note - Fern Mary MD - 12/05/2024 3:25 PM ESTAssociated Problem(s): Supervision of high risk in second trimester documented in this encounter [facility] note* Diagnosis Dichorionic diamniotic twin in first trimester (HCC)- Primary Twin , antepartum History of sickle cell anemia Personal history of diseases of blood and blood-forming organs Depression with anxiety Dysthymic disorder Obesity affecting in second trimester, unspecified obesity type ([facility]) Encounter for anatomic survey ([facility]) Encounter for anatomic survey Sickle cell trait Sickle-cell trait History of depression 19 weeks gestation of ([facility])- Primary state, incidental Obesity affecting in second trimester, unspecified obesity type ([facility]) Dichorionic diamniotic twin in second trimester ([facility]) Twin , antepartum Supervision of high risk in second trimester ([facility]) Unspecified high-risk Dichorionic diamniotic twin in second trimester ([facility])- Primary Twin , antepartum Supervision of high risk in second trimester ([facility]) Unspecified high-risk Screening for diabetes mellitus * Assessment & Plan Note - Yasmeen Edmond MD - 01/02/2025 3:47 PM EDT Associated Problem(s): Supervision of high risk in second trimester ([facility]) Orders: GESTATIONAL GLUCOSE SCREEN, 1-HOUR, 50 GRAM, NON-FASTING; Future SYPHILIS TREPONEMAL W/REFLEX; Future ANEMIA REFLEX PANEL; Future documented in this encounter [facility] note* Diagnosis Dichorionic diamniotic twin in first trimester (HCC)- Primary Twin , antepartum History of sickle cell anemia Personal history of diseases of blood and blood-forming organs Depression with anxiety Dysthymic disorder Obesity affecting in second trimester, unspecified obesity type ([facility]) Encounter for anatomic survey ([facility]) Encounter for anatomic survey Sickle cell trait Sickle-cell trait History of depression 19 weeks gestation of ([facility])- Primary state, incidental Obesity affecting in second trimester, unspecified obesity type ([facility]) Dichorionic diamniotic twin in second trimester ([facility]) Twin , antepartum Supervision of high risk in second trimester ([facility]) Unspecified high-risk Dichorionic diamniotic twin in second trimester ([facility])- Primary Twin , antepartum Supervision of high risk in second trimester ([facility]) Unspecified high-risk Screening for diabetes mellitus Dichorionic diamniotic twin in second trimester ([facility])- Primary Twin , antepartum 23 weeks gestation of ([facility]) state, incidental documented in this encounter [facility] note* Diagnosis Dichorionic diamniotic twin in first trimester ([facility])- Primary Twin , antepartum History of sickle cell anemia Personal history of diseases of blood and blood-forming organs Depression with anxiety Dysthymic disorder Obesity affecting in second trimester, unspecified obesity type ([facility]) Encounter for anatomic survey ([facility]) Encounter for anatomic survey Sickle cell trait Sickle-cell trait History of depression 19 weeks gestation of ([facility])- Primary state, incidental Obesity affecting in second trimester, unspecified obesity type ([facility]) Dichorionic diamniotic twin in second trimester ([facility]) Twin , antepartum Supervision of high risk in second trimester ([facility]) Unspecified high-risk Dichorionic diamniotic twin in second trimester ([facility])- Primary Twin , antepartum Supervision of high risk in second trimester ([facility]) Unspecified high-risk Screening for diabetes mellitus Encounter for ultrasound to check growth ([facility])- Primary Encounter for routine screening for malformation using ultrasonics Dichorionic diamniotic twin in second trimester ([facility]) Twin , antepartum 27 weeks gestation of ([facility]) state, incidental documented in this encounter [facility] note* Diagnosis Dichorionic diamniotic twin in first trimester ([facility])- Primary Twin , antepartum History of sickle cell anemia Personal history of diseases of blood and blood-forming organs Depression with anxiety Dysthymic disorder Obesity affecting in second trimester, unspecified obesity type ([facility]) Encounter for anatomic survey ([facility]) Encounter for anatomic survey Sickle cell trait Sickle-cell trait History of depression 19 weeks gestation of ([facility])- Primary state, incidental Obesity affecting in second trimester, unspecified obesity type ([facility]) Dichorionic diamniotic twin in second trimester (HCC) Twin , antepartum Supervision of high risk in second trimester ([facility]) Unspecified high-risk Dichorionic diamniotic twin in second trimester ([facility])- Primary Twin , antepartum Supervision of high risk in second trimester ([facility]) Unspecified high-risk Screening for diabetes mellitus Supervision of high risk in second trimester ([facility])- Primary Unspecified high-risk 27 weeks gestation of ([facility]) state, incidental Dichorionic diamniotic twin in second trimester ([facility]) Twin , antepartum Obesity affecting in second trimester, unspecified obesity type ([facility]) Heartburn during in first trimester ([facility]) Sickle cell trait Sickle-cell trait Encounter for supervision of high risk in second trimester, antepartum ([facility]) documented in this encounter [facility] note* Diagnosis Dichorionic diamniotic twin in first trimester ([facility])- Primary Twin , antepartum History of sickle cell anemia Personal history of diseases of blood and blood-forming organs Depression with anxiety Dysthymic disorder Obesity affecting in second trimester, unspecified obesity type ([facility]) Encounter for anatomic survey ([facility]) Encounter for anatomic survey Sickle cell trait Sickle-cell trait History of depression 19 weeks gestation of ([facility])- Primary state, incidental Obesity affecting in second trimester, unspecified obesity type ([facility]) Dichorionic diamniotic twin in second trimester ([facility]) Twin , antepartum Supervision of high risk in second trimester ([facility]) Unspecified high-risk Dichorionic diamniotic twin in second trimester ([facility])- Primary Twin , antepartum Supervision of high risk in second trimester ([facility]) Unspecified high-risk Screening for diabetes mellitus 29 weeks gestation of ([facility])- Primary state, incidental Obesity affecting in third trimester, unspecified obesity type ([facility]) Dichorionic diamniotic twin in third trimester ([facility]) Twin , antepartum Need for vaccination Need for prophylactic vaccination and inoculation against unspecified single disease * Assessment & Plan Note - Fern Mary MD - 02/13/2025 9:44 AM EDTAssociated Problem(s): Supervision of high risk in second trimester ([facility]) documented in this encounter [facility] note* Diagnosis Dichorionic diamniotic twin in first trimester ([facility])- Primary Twin , antepartum History of sickle cell anemia Personal history of diseases of blood and blood-forming organs Depression with anxiety Dysthymic disorder Obesity affecting in second trimester, unspecified obesity type ([facility]) Encounter for anatomic survey ([facility]) Encounter for anatomic survey Sickle cell trait Sickle-cell trait History of depression 19 weeks gestation of ([facility])- Primary state, incidental Obesity affecting in second trimester, unspecified obesity type ([facility]) Dichorionic diamniotic twin in second trimester ([facility]) Twin , antepartum Supervision of high risk in second trimester ([facility]) Unspecified high-risk Dichorionic diamniotic twin in second trimester ([facility])- Primary Twin , antepartum Supervision of high risk in second trimester ([facility]) Unspecified high-risk Screening for diabetes mellitus 29 weeks gestation of ([facility])- Primary state, incidental Obesity affecting in third trimester, unspecified obesity type ([facility]) Dichorionic diamniotic twin in third trimester ([facility]) Twin , antepartum Need for vaccination Need for prophylactic vaccination and inoculation against unspecified single disease Dichorionic diamniotic twin in third trimester ([facility])- Primary Twin , antepartum Obesity affecting in third trimester, unspecified obesity type ([facility]) Anemia complicating , third trimester ([facility]) Supervision of high risk in third trimester ([facility]) Unspecified high-risk Skin rash Rash and other nonspecific skin eruption 32 weeks gestation of ([facility]) state, incidental Multigravida of advanced maternal age in third trimester ([facility]) * Assessment & Plan Note - Marisol Roman MD - 03/02/2025 9:47 AM EDT Associated Problem(s): Anemia complicating , third trimester ([facility]) Will repeat cbc in 2 weeks Has been taking iron for only 2 weeks or so. Orders: COMPLETE BLOOD COUNT; [facility] Dichorionic diamniotic twin in first trimester ([facility])- Primary Twin , antepartum History of sickle cell anemia Personal history of diseases of blood and blood-forming organs Depression with anxiety Dysthymic disorder Obesity affecting in second trimester, unspecified obesity type ([facility]) Encounter for anatomic survey ([facility]) Encounter for anatomic survey Sickle cell trait Sickle-cell trait History of depression 19 weeks gestation of ([facility])- Primary state, incidental Obesity affecting in second trimester, unspecified obesity type ([facility]) Dichorionic diamniotic twin in second trimester ([facility]) Twin , antepartum Supervision of high risk in second trimester ([facility]) Unspecified high-risk Dichorionic diamniotic twin in second trimester ([facility])- Primary Twin , antepartum Supervision of high risk in second trimester ([facility]) Unspecified high-risk Screening for diabetes mellitus 29 weeks gestation of ([facility])- Primary state, incidental Obesity affecting in third trimester, unspecified obesity type ([facility]) Dichorionic diamniotic twin in third trimester ([facility]) Twin , antepartum Need for vaccination Need for prophylactic vaccination and inoculation against unspecified single disease Dichorionic diamniotic twin in second trimester ([facility]) Twin , antepartum Dichorionic diamniotic twin in third trimester ([facility])- Primary Twin , antepartum Obesity affecting in third trimester, unspecified obesity type ([facility]) Anemia complicating , third trimester ([facility]) Supervision of high risk in third trimester ([facility]) Unspecified high-risk Skin rash Rash and other nonspecific skin eruption 32 weeks gestation of ([facility]) state, incidental Multigravida of advanced maternal age in third trimester ([facility]) [facility] Diagnosis Dichorionic diamniotic twin in first trimester ([facility])- Primary Twin , antepartum History of sickle cell anemia Personal history of diseases of blood and blood-forming organs Depression with anxiety Dysthymic disorder Obesity affecting in second trimester, unspecified obesity type ([facility]) Encounter for anatomic survey ([facility]) Encounter for anatomic survey Sickle cell trait Sickle-cell trait History of depression 19 weeks gestation of ([facility])- Primary state, incidental Obesity affecting in second trimester, unspecified obesity type ([facility]) Dichorionic diamniotic twin in second trimester ([facility]) Twin , antepartum Supervision of high risk in second trimester ([facility]) Unspecified high-risk Dichorionic diamniotic twin in second trimester ([facility])- Primary Twin , antepartum Supervision of high risk in second trimester ([facility]) Unspecified high-risk Screening for diabetes mellitus 29 weeks gestation of ([facility])- Primary state, incidental Obesity affecting in third trimester, unspecified obesity type ([facility]) Dichorionic diamniotic twin in third trimester ([facility]) Twin , antepartum Need for vaccination Need for prophylactic vaccination and inoculation against unspecified single disease Dichorionic diamniotic twin in third trimester ([facility])- Primary Twin , antepartum Obesity affecting in third trimester, unspecified obesity type ([facility]) Anemia complicating , third trimester ([facility]) Supervision of high risk in third trimester ([facility]) Unspecified high-risk Skin rash Rash and other nonspecific skin eruption 32 weeks gestation of ([facility]) state, incidental Multigravida of advanced maternal age in third trimester ([facility]) Heartburn during in first trimester ([facility]) [facility] Diagnosis Dichorionic diamniotic twin in first trimester ([facility])- Primary Twin , antepartum History of sickle cell anemia Personal history of diseases of blood and blood-forming organs Depression with anxiety Dysthymic disorder Obesity affecting in second trimester, unspecified obesity type ([facility]) Encounter for anatomic survey ([facility]) Encounter for anatomic survey Sickle cell trait Sickle-cell trait History of depression 19 weeks gestation of ([facility])- Primary state, incidental Obesity affecting in second trimester, unspecified obesity type ([facility]) Dichorionic diamniotic twin in second trimester ([facility]) Twin , antepartum Supervision of high risk in second trimester ([facility]) Unspecified high-risk Dichorionic diamniotic twin in second trimester ([facility])- Primary Twin , antepartum Supervision of high risk in second trimester ([facility]) Unspecified high-risk Screening for diabetes mellitus 29 weeks gestation of ([facility])- Primary state, incidental Obesity affecting in third trimester, unspecified obesity type ([facility]) Dichorionic diamniotic twin in third trimester ([facility]) Twin , antepartum Need for vaccination Need for prophylactic vaccination and inoculation against unspecified single disease Dichorionic diamniotic twin in third trimester ([facility])- Primary Twin , antepartum Obesity affecting in third trimester, unspecified obesity type ([facility]) Anemia complicating , third trimester ([facility]) Supervision of high risk in third trimester ([facility]) Unspecified high-risk Skin rash Rash and other nonspecific skin eruption 32 weeks gestation of ([facility]) state, incidental Multigravida of advanced maternal age in third trimester ([facility]) Dichorionic diamniotic twin in third trimester ([facility])- Primary Twin , antepartum Obesity affecting in third trimester, unspecified obesity type ([facility]) Anemia complicating , third trimester ([facility]) Supervision of high risk in third trimester ([facility]) Unspecified high-risk 33 weeks gestation of ([facility]) state, incidental Heartburn during in first trimester ([facility]) [facility] Diagnosis Dichorionic diamniotic twin in first trimester ([facility])- Primary Twin , antepartum History of sickle cell anemia Personal history of diseases of blood and blood-forming organs Depression with anxiety Dysthymic disorder Obesity affecting in second trimester, unspecified obesity type ([facility]) Encounter for anatomic survey ([facility]) Encounter for anatomic survey Sickle cell trait Sickle-cell trait History of depression 19 weeks gestation of ([facility])- Primary state, incidental Obesity affecting in second trimester, unspecified obesity type ([facility]) Dichorionic diamniotic twin in second trimester ([facility]) Twin , antepartum Supervision of high risk in second trimester ([facility]) Unspecified high-risk Dichorionic diamniotic twin in second trimester ([facility])- Primary Twin , antepartum Supervision of high risk in second trimester ([facility]) Unspecified high-risk Screening for diabetes mellitus 29 weeks gestation of ([facility])- Primary state, incidental Obesity affecting in third trimester, unspecified obesity type ([facility]) Dichorionic diamniotic twin in third trimester ([facility]) Twin , antepartum Need for vaccination Need for prophylactic vaccination and inoculation against unspecified single disease Dichorionic diamniotic twin in third trimester ([facility])- Primary Twin , antepartum Obesity affecting in third trimester, unspecified obesity type ([facility]) Anemia complicating , third trimester ([facility]) Supervision of high risk in third trimester ([facility]) Unspecified high-risk Skin rash Rash and other nonspecific skin eruption 32 weeks gestation of ([facility]) state, incidental Multigravida of advanced maternal age in third trimester ([facility]) Dichorionic diamniotic twin in second trimester ([facility]) Twin , antepartum Dichorionic diamniotic twin in third trimester ([facility])- Primary Twin , antepartum Obesity affecting in third trimester, unspecified obesity type ([facility]) Anemia complicating , third trimester ([facility]) [facility] Diagnosis Dichorionic diamniotic twin in first trimester ([facility])- Primary Twin , antepartum History of sickle cell anemia Personal history of diseases of blood and blood-forming organs Depression with anxiety Dysthymic disorder Obesity affecting in second trimester, unspecified obesity type ([facility]) Encounter for anatomic survey ([facility]) Encounter for anatomic survey Sickle cell trait Sickle-cell trait History of depression 19 weeks gestation of ([facility])- Primary state, incidental Obesity affecting in second trimester, unspecified obesity type ([facility]) Dichorionic diamniotic twin in second trimester ([facility]) Twin , antepartum Supervision of high risk in second trimester ([facility]) Unspecified high-risk Dichorionic diamniotic twin in second trimester ([facility])- Primary Twin , antepartum Supervision of high risk in second trimester ([facility]) Unspecified high-risk Screening for diabetes mellitus 29 weeks gestation of ([facility])- Primary state, incidental Obesity affecting in third trimester, unspecified obesity type ([facility]) Dichorionic diamniotic twin in third trimester ([facility]) Twin , antepartum Need for vaccination Need for prophylactic vaccination and inoculation against unspecified single disease Dichorionic diamniotic twin in third trimester ([facility])- Primary Twin , antepartum Obesity affecting in third trimester, unspecified obesity type ([facility]) Anemia complicating , third trimester ([facility]) Supervision of high risk in third trimester ([facility]) Unspecified high-risk Skin rash Rash and other nonspecific skin eruption 32 weeks gestation of ([facility]) state, incidental Multigravida of advanced maternal age in third trimester ([facility]) Dichorionic diamniotic twin in third trimester ([facility])- Primary Twin , antepartum Obesity affecting in third trimester, unspecified obesity type ([facility]) Anemia complicating , third trimester ([facility]) * Assessment & Plan Note - Fern Mary MD - 03/27/2025 12:22 PM EDTAssociated Problem(s): Anemia complicating , third trimester ([facility]) Orders: ROUTINE, GROUP B STREPTOCOCCUS BY PCR URINE OB DIP B/O [facility] Diagnosis Dichorionic diamniotic twin in first trimester ([facility])- Primary Twin , antepartum History of sickle cell anemia Personal history of diseases of blood and blood-forming organs Depression with anxiety Dysthymic disorder Obesity affecting in second trimester, unspecified obesity type ([facility]) Encounter for anatomic survey ([facility]) Encounter for anatomic survey Sickle cell trait Sickle-cell trait History of depression 19 weeks gestation of ([facility])- Primary state, incidental Obesity affecting in second trimester, unspecified obesity type ([facility]) Dichorionic diamniotic twin in second trimester ([facility]) Twin , antepartum Supervision of high risk in second trimester ([facility]) Unspecified high-risk Dichorionic diamniotic twin in second trimester ([facility])- Primary Twin , antepartum Supervision of high risk in second trimester ([facility]) Unspecified high-risk Screening for diabetes mellitus Anemia complicating , third trimester ([facility])- Primary Abnormal glucose complicating ([facility]) Abnormal maternal glucose tolerance, complicating , childbirth, or the puerperium, unspecified as to episode of care 29 weeks gestation of ([facility])- Primary state, incidental Obesity affecting in third trimester, unspecified obesity type ([facility]) Dichorionic diamniotic twin in third trimester ([facility]) Twin , antepartum Need for vaccination Need for prophylactic vaccination and inoculation against unspecified single disease Dichorionic diamniotic twin in third trimester ([facility])- Primary Twin , antepartum Obesity affecting in third trimester, unspecified obesity type ([facility]) Anemia complicating , third trimester ([facility]) Supervision of high risk in third trimester ([facility]) Unspecified high-risk Skin rash Rash and other nonspecific skin eruption 32 weeks gestation of ([facility]) state, incidental Multigravida of advanced maternal age in third trimester ([facility]) Dichorionic diamniotic twin in third trimester ([facility])- Primary Twin , antepartum Obesity affecting in third trimester, unspecified obesity type ([facility]) Anemia complicating , third trimester ([facility]) [facility] Diagnosis Dichorionic diamniotic twin in first trimester ([facility])- Primary Twin , antepartum History of sickle cell anemia Personal history of diseases of blood and blood-forming organs Depression with anxiety Dysthymic disorder Obesity affecting in second trimester, unspecified obesity type ([facility]) Encounter for anatomic survey ([facility]) Encounter for anatomic survey Sickle cell trait Sickle-cell trait History of depression 19 weeks gestation of ([facility])- Primary state, incidental Obesity affecting in second trimester, unspecified obesity type ([facility]) Dichorionic diamniotic twin in second trimester ([facility]) Twin , antepartum Supervision of high risk in second trimester ([facility]) Unspecified high-risk Dichorionic diamniotic twin in second trimester ([facility])- Primary Twin , antepartum Supervision of high risk in second trimester ([facility]) Unspecified high-risk Screening for diabetes mellitus Abnormal glucose complicating ([facility])- Primary Abnormal maternal glucose tolerance, complicating , childbirth, or the puerperium, unspecified as to episode of care 29 weeks gestation of ([facility])- Primary state, incidental Obesity affecting in third trimester, unspecified obesity type ([facility]) Dichorionic diamniotic twin in third trimester ([facility]) Twin , antepartum Need for vaccination Need for prophylactic vaccination and inoculation against unspecified single disease Dichorionic diamniotic twin in third trimester ([facility])- Primary Twin , antepartum Obesity affecting in third trimester, unspecified obesity type ([facility]) Anemia complicating , third trimester ([facility]) Supervision of high risk in third trimester ([facility]) Unspecified high-risk Skin rash Rash and other nonspecific skin eruption 32 weeks gestation of ([facility]) state, incidental Multigravida of advanced maternal age in third trimester ([facility]) Dichorionic diamniotic twin in third trimester ([facility])- Primary Twin , antepartum Obesity affecting in third trimester, unspecified obesity type ([facility]) Anemia complicating , third trimester ([facility]) documented in this encounter [facility] Diagnosis Dichorionic diamniotic twin in first trimester ([facility])- Primary Twin , antepartum History of sickle cell anemia Personal history of diseases of blood and blood-forming organs Depression with anxiety Dysthymic disorder Obesity affecting in second trimester, unspecified obesity type ([facility]) Encounter for anatomic survey ([facility]) Encounter for anatomic survey Sickle cell trait Sickle-cell trait History of depression 19 weeks gestation of ([facility])- Primary state, incidental Obesity affecting in second trimester, unspecified obesity type ([facility]) Dichorionic diamniotic twin in second trimester ([facility]) Twin , antepartum Supervision of high risk in second trimester ([facility]) Unspecified high-risk Dichorionic diamniotic twin in second trimester ([facility])- Primary Twin , antepartum Supervision of high risk in second trimester ([facility]) Unspecified high-risk Screening for diabetes mellitus 29 weeks gestation of ([facility])- Primary state, incidental Obesity affecting in third trimester, unspecified obesity type ([facility]) Dichorionic diamniotic twin in third trimester ([facility]) Twin , antepartum Need for vaccination Need for prophylactic vaccination and inoculation against unspecified single disease Dichorionic diamniotic twin in third trimester ([facility])- Primary Twin , antepartum Obesity affecting in third trimester, unspecified obesity type ([facility]) Anemia complicating , third trimester ([facility]) Supervision of high risk in third trimester ([facility]) Unspecified high-risk Skin rash Rash and other nonspecific skin eruption 32 weeks gestation of ([facility]) state, incidental Multigravida of advanced maternal age in third trimester ([facility]) Dichorionic diamniotic twin in third trimester ([facility])- Primary Twin , antepartum Obesity affecting in third trimester, unspecified obesity type ([facility]) Anemia complicating , third trimester ([facility]) Supervision of high risk in third trimester ([facility])- Primary Unspecified high-risk Dichorionic diamniotic twin in third trimester ([facility]) Twin , antepartum Obesity affecting in third trimester, unspecified obesity type ([facility]) Anemia complicating , third trimester ([facility]) 37 weeks gestation of ([facility]) state, incidental documented in this encounter [facility] for referral (narrative)* Diagnostic Procedure Only (Routine) - Authorized Specialty Diagnoses / Procedures Referred By Héctor dorsey Referred To Contact [facility] Diagnoses Pelvic pain in female Procedures US FEMALE PELVIS TRANSVAG US TRANSVAGINAL Yancy Rodriguez APRN.CNP [address] [place] [address] [place] [address] Referral ID Status Reason Start Date Expiration Date Visits Requested Visits Authorized [id number] Authorized Auto-Generat ed Referral 01/28/2024 10/03/2024 1 1 * Consult, Test, Treat (Routine) - Pending Review Specialty Diagnoses / Procedures Referred By Héctor dorsey Referred To Contact Diagnoses PCOS (polycystic ovarian syndrome) Class 2 obesity with body mass index (BMI) of 35.0 to 35.9 in adult, unspecified obesity type, unspecified whether serious comorbidity present Procedures CONSULT TO [facility] WEIGHT MANAGEMENT PROGRAM OFFICE/OUTPATIENT NEW HIGH MDM 60 MINUTES Yancy Rodriguez APRN.CNP [address] [place] [address] Referral ID Status Reason Start Date Expiration Date Visits Requested Visits Authorized [id number] Pending Review PCP Requested Referral Auto-Generate d Referral 01/13/2024 01/12/2025 1 1 * Outpatient Procedure (Routine) - Pending Review Specialty Diagnoses / Procedures Referred By Héctor dorsey Referred To Contact [facility] Diagnoses Encounter for IUD removal Procedures REMOVE INTRAUTERINE DEVICE REMOVE INTRAUTERINE DEVICE Yancy Rodriguez APRN.CNP [address] [place] [address] [facility] [address] [place] [address] Referral ID Status Reason Start Date Expiration Date Visits Requested Visits Authorized [id number] Pending Review Auto-Generat ed Referral 01/13/2024 01/12/2025 1 1 [facility] ([facility]ative)* Outpatient Procedure (Routine) - Pending Review Specialty Diagnoses / Procedures Referred By Héctor dorsey Referred To Contact [facility] Diagnoses Encounter for IUD removal Procedures REMOVE INTRAUTERINE DEVICE REMOVE INTRAUTERINE DEVICE Yancy Rodriguez APRN.CNP [address] 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 November 30, 2021 7:43am Chief Complaint and Reason for Visit Chief Complaint 1 M FU E ORDER VAGINAL DELIVERY Nipple pain Reason for Visit Acid reflux Heartburn during Nausea & vomiting Vaginal delivery Reason for Referral Specialty Diagnoses / Procedures Referred By Héctor dorsey Referred To Contact Diagnoses Gastroesophageal reflux disease without esophagitis IFG (impaired fasting glucose) PCOS (polycystic ovarian syndrome) Class 2 severe obesity with serious comorbidity and body mass index (BMI) of 36.0 to 36.9 in adult, unspecified obesity type ([facility]) Christy Rosas APRN.CNP [address] [place] [address] Referral ID Status Reason Start Date Expiration Date V isits Requested Visits Authorized [id number] Pending Review 1 1 Specialty Diagnoses / Procedures Referred By Héctor dorsey Referred To Contact Diagnoses Encounter for supervision of high risk in first trimester, antepartum 8 weeks gestation of Dichorionic diamniotic twin in first trimester History of sickle cell anemia Procedures CONSULT TO [facility]ERNAL MEDI OFFICE/OUTPATIENT NEW HIGH MDM 60 MINUTES Yancy Rodriguez APRN.CNP [address] [place] [address] Referral ID Status Reason Start Date Expiration Date Visits Requested Visits Authorized [id number] Pending Review PCP Requested Referral Auto-Generate d Referral 4 09/13/2025 1 1 Specialty Diagnoses / Procedures Referred By Contac t Referred To Contact [facility] Diagnoses Encounter for supervision of high risk in first trimester, antepartum 8 weeks gestation of Dichorionic diamniotic twin in first trimester Procedures NUCHAL TRANSLUCENCY WHI US NUCHAL TRANSLUCENCY 1ST GESTATION Yancy Rodriguez APRN.CNP [address] [place] [address] [address] Referral ID Status Reason Start Date Expiration Date Visits Requested Visits Authorized [id number] New Request Auto-Generat ed Referral 4 09/13/2025 1 1 Specialty Diagnoses / Procedures Referred By Contac t Referred To Contact [facility] Diagnoses with uncertain dates in first trimester Procedures OBSTETRIC ULTRASOUND WHI US PREG UTERUS AFTER 1ST TRIMEST 1/ GESTATION Yancy Rodriguez APRN.OPERATIONS ACCOUNTANT [address] [place] [address] [address] Referral ID Status Reason Start Date Expiration Date Visits Requested Visits Authorized [id number] New Request Auto-Generat ed Referral 4 09/13/2025 1 1 Additional Source Comments INFORMATION SOURCE (unrecogn ized section and content) DATE CREATED AUTHOR 03/23/2018 [facility] DATE CREATED AUTHOR AUTHOR'S ORGANIZ ATION 08/25/[address] [facility] DATE CREATED AUTHOR AUTHOR'S ORGANIZ ATION 02/07/2022 [facility] DATE CREATED AUTHOR AUTHOR'S ORGANIZ ATION 04/07/2025 [facility] Goals (unrecognized section and content) Goals may be documented in a n alternate section Source Comments (unrecognize d section and content) In the event this informatio n is protected by the Federal Confidentiality of Alcohol and Drug Abuse Patient Records regulations: The Federal rules restrict any use of the information to criminally investigate or prosecute any alcohol or drug abuse patient.[facility] CenterIn the event this information is protected by the Federal Confidentiality of Alcohol and Drug Abuse Patient Records regulations: The Federal rules restrict any use of the information to criminally investigate or prosecute any alcohol or drug abuse patient.[facility] CenterIn the event this information is protected by the Federal Confidentiality of Alcohol and Drug Abuse Patient Records regulations: The Federal rules restrict any use of the information to criminally investigate or prosecute any alcohol or drug abuse patient.[facility] CenterIn the event this information is protected by the Federal Confidentiality of Alcohol and Drug Abuse Patient Records regulations: The Federal rules restrict any use of the information to criminally investigate or prosecute any alcohol or drug abuse patient.[facility] CenterIn the event this information is protected by the Federal Confidentiality of Alcohol and Drug Abuse Patient Records regulations: The Federal rules restrict any use of the information to criminally investigate or prosecute any alcohol or drug abuse patient.[facility] CenterIn the event this information is protected by the Federal Confidentiality of Alcohol and Drug Abuse Patient Records regulations: The Federal rules restrict any use of the information to criminally investigate or prosecute any alcohol or drug abuse patient.[facility] CenterIn the event this information is protected by the Federal Confidentiality of Alcohol and Drug Abuse Patient Records regulations: The Federal rules restrict any use of the information to criminally investigate or prosecute any alcohol or drug abuse patient.[facility] CenterIn the event this information is protected by the Federal Confidentiality of Alcohol and Drug Abuse Patient Records regulations: The Federal rules restrict any use of the information to criminally investigate or prosecute any alcohol or drug abuse patient.[facility] CenterIn the event this information is protected by the Federal Confidentiality of Alcohol and Drug Abuse Patient Records regulations: The Federal rules restrict any use of the information to criminally investigate or prosecute any alcohol or drug abuse patient.[facility] CenterIn the event this information is protected by the Federal Confidentiality of Alcohol and Drug Abuse Patient Records regulations: The Federal rules restrict any use of the information to criminally investigate or prosecute any alcohol or drug abuse patient.[facility] CenterIn the event this information is protected by the Federal Confidentiality of Alcohol and Drug Abuse Patient Records regulations: The Federal rules restrict any use of the information to criminally investigate or prosecute any alcohol or drug abuse patient.[facility] CenterIn the event this information is protected by the Federal Confidentiality of Alcohol and Drug Abuse Patient Records regulations: The Federal rules restrict any use of the information to criminally investigate or prosecute any alcohol or drug abuse patient.[facility] CenterIn the event this information is protected by the Federal Confidentiality of Alcohol and Drug Abuse Patient Records regulations: The Federal rules restrict any use of the information to criminally investigate or prosecute any alcohol or drug abuse patient.[facility] CenterIn the event this information is protected by the Federal Confidentiality of Alcohol and Drug Abuse Patient Records regulations: The Federal rules restrict any use of the information to criminally investigate or prosecute any alcohol or drug abuse patient.[facility] CenterIn the event this information is protected by the Federal Confidentiality of Alcohol and Drug Abuse Patient Records regulations: The Federal rules restrict any use of the information to criminally investigate or prosecute any alcohol or drug abuse patient.[facility] CenterIn the event this information is protected by the Federal Confidentiality of Alcohol and Drug Abuse Patient Records regulations: The Federal rules restrict any use of the information to criminally investigate or prosecute any alcohol or drug abuse patient.[facility] CenterIn the event this information is protected by the Federal Confidentiality of Alcohol and Drug Abuse Patient Records regulations: The Federal rules restrict any use of the information to criminally investigate or prosecute any alcohol or drug abuse patient.[facility] CenterIn the event this information is protected by the Federal Confidentiality of Alcohol and Drug Abuse Patient Records regulations: The Federal rules restrict any use of the information to criminally investigate or prosecute any alcohol or drug abuse patient.[facility] CenterIn the event this information is protected by the Federal Confidentiality of Alcohol and Drug Abuse Patient Records regulations: The Federal rules restrict any use of the information to criminally investigate or prosecute any alcohol or drug abuse patient.[facility] CenterIn the event this information is protected by the Federal Confidentiality of Alcohol and Drug Abuse Patient Records regulations: The Federal rules restrict any use of the information to criminally investigate or prosecute any alcohol or drug abuse patient.[facility] CenterIn the event this information is protected by the Federal Confidentiality of Alcohol and Drug Abuse Patient Records regulations: The Federal rules restrict any use of the information to criminally investigate or prosecute any alcohol or drug abuse patient.[facility] CenterIn the event this information is protected by the Federal Confidentiality of Alcohol and Drug Abuse Patient Records regulations: The Federal rules restrict any use of the information to criminally investigate or prosecute any alcohol or drug abuse patient.[facility] CenterIn the event this information is protected by the Federal Confidentiality of Alcohol and Drug Abuse Patient Records regulations: The Federal rules restrict any use of the information to criminally investigate or prosecute any alcohol or drug abuse patient.[facility] CenterIn the event this information is protected by the Federal Confidentiality of Alcohol and Drug Abuse Patient Records regulations: The Federal rules restrict any use of the information to criminally investigate or prosecute any alcohol or drug abuse patient.[facility] CenterIn the event this information is protected by the Federal Confidentiality of Alcohol and Drug Abuse Patient Records regulations: The Federal rules restrict any use of the information to criminally investigate or prosecute any alcohol or drug abuse patient.[facility] CenterIn the event this information is protected by the Federal Confidentiality of Alcohol and Drug Abuse Patient Records regulations: The Federal rules restrict any use of the information to criminally investigate or prosecute any alcohol or drug abuse patient.[facility] CenterIn the event this information is protected by the Federal Confidentiality of Alcohol and Drug Abuse Patient Records regulations: The Federal rules restrict any use of the information to criminally investigate or prosecute any alcohol or drug abuse patient.[facility] CenterIn the event this information is protected by the Federal Confidentiality of Alcohol and Drug Abuse Patient Records regulations: The Federal rules restrict any use of the information to criminally investigate or prosecute any alcohol or drug abuse patient.[facility] CenterIn the event this information is protected by the Federal Confidentiality of Alcohol and Drug Abuse Patient Records regulations: The Federal rules restrict any use of the information to criminally investigate or prosecute any alcohol or drug abuse patient.[facility] CenterIn the event this information is protected by the Federal Confidentiality of Alcohol and Drug Abuse Patient Records regulations: The Federal rules restrict any use of the information to criminally investigate or prosecute any alcohol or drug abuse patient.[facility] CenterIn the event this information is protected by the Federal Confidentiality of Alcohol and Drug Abuse Patient Records regulations: The Federal rules restrict any use of the information to criminally investigate or prosecute any alcohol or drug abuse patient.[facility] CenterIn the event this information is protected by the Federal Confidentiality of Alcohol and Drug Abuse Patient Records regulations: The Federal rules restrict any use of the information to criminally investigate or prosecute any alcohol or drug abuse patient.[facility] CenterIn the event this information is protected by the Federal Confidentiality of Alcohol and Drug Abuse Patient Records regulations: The Federal rules restrict any use of the information to criminally investigate or prosecute any alcohol or drug abuse patient.[facility] CenterIn the event this information is protected by the Federal Confidentiality of Alcohol and Drug Abuse Patient Records regulations: The Federal rules restrict any use of the information to criminally investigate or prosecute any alcohol or drug abuse patient.[facility] CenterIn the event this information is protected by the Federal Confidentiality of Alcohol and Drug Abuse Patient Records regulations: The Federal rules restrict any use of the information to criminally investigate or prosecute any alcohol or drug abuse patient.[facility] CenterIn the event this information is protected by the Federal Confidentiality of Alcohol and Drug Abuse Patient Records regulations: The Federal rules restrict any use of the information to criminally investigate or prosecute any alcohol or drug abuse patient.[facility] CenterIn the event this information is protected by the Federal Confidentiality of Alcohol and Drug Abuse Patient Records regulations: The Federal rules restrict any use of the information to criminally investigate or prosecute any alcohol or drug abuse patient.[facility] CenterIn the event this information is protected by the Federal Confidentiality of Alcohol and Drug Abuse Patient Records regulations: The Federal rules restrict any use of the information to criminally investigate or prosecute any alcohol or drug abuse patient.[facility] CenterIn the event this information is protected by the Federal Confidentiality of Alcohol and Drug Abuse Patient Records regulations: The Federal rules restrict any use of the information to criminally investigate or prosecute any alcohol or drug abuse patient.[facility] CenterIn the event this information is protected by the Federal Confidentiality of Alcohol and Drug Abuse Patient Records regulations: The Federal rules restrict any use of the information to criminally investigate or prosecute any alcohol or drug abuse patient.[facility] CenterIn the event this information is protected by the Federal Confidentiality of Alcohol and Drug Abuse Patient Records regulations: The Federal rules restrict any use of the information to criminally investigate or prosecute any alcohol or drug abuse patient.[facility] CenterIn the event this information is protected by the Federal Confidentiality of Alcohol and Drug Abuse Patient Records regulations: The Federal rules restrict any use of the information to criminally investigate or prosecute any alcohol or drug abuse patient.[facility] Reason for Visit (unrecogniz ed section and content) Reason Comments US Specialty Diagnoses / Procedures Referred By Héctor t Referred To Contact [facility] Diagnoses with uncertain dates in first trimester Procedures OBSTETRIC ULTRASOUND I US PREG UTERUS AFTER 1ST TRIMEST GESTATION Yancy Rodriguez APRN.CNP [address] [place] [address] Phone: tel: fax: [address] [phone] Referral ID Status Reason Start Date Expiration Date Visits Requested Visits Authorized [id number] Authorized Auto-Generat ed Referral 10/26/2024 10/03/2025 20 20 Reason Comments Well Woman Reason Comments Results Reason Comments Radiology US Specialty Diagnoses / Procedures Referred By Héctor dorsey Referred To Contact [facility] Diagnoses Pelvic pain in female Procedures US FEMALE PELVIS TRANSVAG US TRANSVAGINAL Yancy Rodriguez APRN.CNP [address] [place] [address] [place] [address] Referral ID Status Reason Start Date Expiration Date V isits Requested Visits Authorized [id number] Closed Auto-Generate d Referral 01/28/2024 10/03/2024 1 1 Reason Onset Date Comments IUD Removal 02/11/2024 Specialty Diagnoses / Procedures Referred By Héctor dorsey Referred To Contact [facility] Diagnoses Encounter for IUD removal Procedures REMOVE INTRAUTERINE DEVICE REMOVE INTRAUTERINE DEVICE Yancy Rodriguez APRN.CNP [address] [place] [address] [address] Referral ID Status Reason Start Date Expiration Date Visits Requested Visits Authorized [id number] Pending Review Auto-Generat ed Referral 02/11/2024 02/10/2025 1 1 Reason Onset Date Comments Weight Management Weight Management 04/11/2024 Specialty Diagnoses / Procedures Referred By Héctor dorsey Referred To Contact [facility] Diagnoses PCOS (polycystic ovarian syndrome) Class 2 obesity with body mass index (BMI) of 35.0 to 35.9 in adult, unspecified obesity type, unspecified whether serious comorbidity present Procedures CONSULT TO [facility] WEIGHT MANAGEMENT PROGRAM OFFICE/OUTPATIENT NEW HIGH MDM 60 MINUTES Yancy Rodriguez APRN.CNP [address] [place] [address] [employer] [address] [place] [address] Referral ID Status Reason Start Date Expiration Date V isits Requested Visits Authorized [id number] Closed PCP Requested Referral Auto-Generated Referral 04/11/2024 10/03/2024 1 1 Reason Comments Insurance Authorization Reason Onset Date Comments Population Health Navigation Outreach 05/11/2024 Sickle Cell Navigation Outreach Reason Onset Date Comments Population Health Navigation Outreach 06/12/2024 Sickle Cell Navigation Outreach Reason Onset Date Comments Population Health Navigation Outreach 07/12/2024 Sickle Cell Navigation Outreach Reason Comments Refill Request Reason Comments Appointment Reason Comments Initial OB Visit Reason Onset Date Comments Care 10/13/2024 Reason Onset Date Comments Refill Request 10/27/2024 Reason Onset Date Comments Care 11/13/2024 Immunizations 11/13/2024 Flu vaccination Specialty Diagnoses / Procedures Referred By Héctor dorsey Referred To Contact [facility] Diagnoses Encounter for supervision of high risk in first trimester, antepartum 8 weeks gestation of Dichorionic diamniotic twin in first trimester History of sickle cell anemia Procedures CONSULT TO [facility] OFFICE/OUTPATIENT NEW HIGH MDM 60 MINUTES OFFICE/OUTPATIENT NEW MODERATE MDM 45 MINUTES Yancy Rodriguez APRN.OPERATIONS ACCOUNTANT [address] [place] [address] Phone: tel: fax: [facility] [address] [place] [address] Phone: tel: fax: Referral ID Status Reason Start Date Expiration Date V isits Requested Visits Authorized [id number] Closed PCP Requested Referral Auto-Generated Referral 12/05/2024 10/03/2025 1 1 Reason Onset Date Comments Care 12/05/2024 Reason Onset Date Comments Care 01/02/2025 Specialty Diagnoses / Procedures Referred By Héctor dorsey Referred To Contact [facility] Diagnoses Dichorionic diamniotic twin in second trimester (HCC) Procedures OBSTETRIC ULTRASOUND WHI US PREG UTERUS AFTER 1ST TRIMEST 1/1ST GESTATION Fern Mary MD [address] [place] [address] Phone: tel: fax: [facility] [address] [place] [address] Referral ID Status Reason Start Date Expiration Date Visits Requested Visits Authorized [id number] Authorized Auto-Generat ed Referral 12/11/2024 10/03/2025 20 20 Reason Onset Date Comments Care 01/30/2025 Reason Onset Date Comments Care 02/13/2025 Reason Onset Date Comments Care 03/02/2025 Reason Onset Date Comments Care 03/13/2025 Reason Comments Breast Pump Reason Onset Date Comments Care 03/27/2025 Reason Onset Date Comments Care 04/05/2025 FOR RECORDS PERTAINING TO PATIENTS WHO ARE OR HAVE BEEN ENROLLED IN A CHEMICAL DEPENDENCY/SUBSTANCEABUSE PROGRAM, SOME INFORMATION MAY BE OMITTED. This clinical summary was aggregated from multiple sources. Caution should be exercised in using it in the provision of clinical care. This summary normalizes information from multiple sources, and as a consequence, information in this document may materially change the coding, format and clinical context of patient data. In addition, data may be omitted in some cases. CLINICAL DECISIONS SHOULD BE BASED ON THE PRIMARY CLINICAL RECORDS. [employer] provides no warranty or guarantee of the accuracy or completeness of information in this document.
--- OUTSIDE RECORDS SUMMARY | 2025-04-12 08:20 | XMS RPT_ITS | CCD ---
Author Organization [facility] Care Team Providers Care Captain [employer] Name Role Phone SHANE ROSARIO Unavailable Unavailable SHANE ROSARIO Unavailable Unavailable Care Physician, No Primary Primary Care Provider Unavailable Care Physician, No Primary Referring Provider Un available Shira PICKLE PUMPER, PICKLE PUMPER-C Yasmeen Antonio Attending Provider [phone] Juan PICKLE PUMPER, PICKLE PUMPER-C Sandy Attending Provider [phone] Unavailable Primary Care Provider Unavailabl e Unavailable Primary Care Provider Unavailabl e YANCY RODRIGUEZ Attending Unavailable HIREN JORDAN Attending Unavailable JANEEN ABBOTT Attending Unavailable FERN MARY Referring Unavailable YASMEEN EDMOND Attending Unavailable HATARIQ, YANCY Referring Unavailable CHEYENNE SINCLAIR Attending Unavailable YASMEEN EDMOND Referring Unavailable HAURY, YANCY Referring Unavailable CHRISTY ROSAS Attending Unavailable CHRISTY ROSAS Referring Unavailable AHRSH ROMANRE Referring Unavail able FERN MARY Referring Unavailable TYRA, KARMON Referring Unavailable HAURY, YANCY Referring Unavailable NEHARSH JACKSONRE Attending Unavail able HAURY, YANCY Referring [...] 7 days. Take 1 capsule by mo [facility] two times a day for 7 days. [...] 2021 11:19am September 09, 2021 9:54am levonorgestrel 0.411609 mg/hr intrauterine system (7 sources) Progestin, Progestin-containing [...] 5 Glucose Ql (U) Negative Neg mg/dL [facility] Protein.monoclonal (U) [Mass/Vol] Negative Neg mg/dL [facility] Examination level ultrasound on 03-27-2025 [facility] Radiology Study observation (narrative) [facility] ROUTINE, GROUP B ST REPTOCOCCUS BY PCRon 03-27-2025 ROUTINE, GROUP B STREPTOCOCCUS BY PCR Not detected Normal [facility] Comment on above: Performed By: #### G BPCR ####[facility] [id number] [place] [address] [place] CBC panel Auto (Bld)on 03-13 Erythrocyte distribution width (RBC) [Ratio] 13.4 % Normal 11.5-15.0 [facility] Comment on above: Order Comment: Speci men Type: BLOOD SPECIMENOrdering Facility: [facility] Address: [address] [place] [address] Performed By: #### 5 8410-2 ####[facility] [id number] [place] [address] [place] Hematocrit (Bld) [Volume fraction] 30.6 % Low 36.0-46.0 [facility] Comment on above: Order Comment: Speci men Type: BLOOD SPECIMENOrdering Facility: [facility] Address: [address] [place] [address] Performed By: #### 5 8410-2 ####[facility] [id number] [place] [address] [place] Hemoglobin (Bld) [Mass/Vol] 10.6 g/dL Low 11.5-15.5 [facility] Comment on above: Order Comment: Speci men Type: BLOOD SPECIMENOrdering Facility: [facility] Address: [address] [place] [address] Performed By: #### 5 8410-2 ####[facility] [id number] [address] [place] [facility] MCH (RBC) [Entitic mass] 29.9 pg Normal 26.0-34.0 [facility] Comment on above: Order Comment: Speci men Type: BLOOD SPECIMENOrdering Facility: [facility] Address: [address] [place] [address] Performed By: #### 5 8410-2 ####[facility] [id number] [address] [place] MCHC (RBC) [Mass/Vol] 34.6 g/dL Normal 30.5-36.0 [facility] Comment on above: Order Comment: Speci men Type: BLOOD SPECIMENOrdering Facility: [facility] Address: [address] [place] [address] Performed By: #### 5 8410-2 ####[facility] [id number] [address] [place] MCV (RBC) [Entitic vol] 86.4 fL Normal 80.0-100.0 [facility] Comment on above: Order Comment: Speci men Type: BLOOD SPECIMENOrdering Facility: [facility] Address: [address] [place] [address] Performed By: #### 5 8410-2 ####[facility] [id number] [address] [place] Nucleated RBC (Bld) [#/Vol] 10*3/uL Normal <0.01 [facility] Comment on above: Order Comment: Speci men Type: BLOOD SPECIMENOrdering Facility: [facility] Address: [address] [place] [address] Performed By: #### 5 8410-2 ####[facility] AUDRANCDEBIA [id number] [place] [address] [place] Platelet mean volume (Bld) [Entitic vol] 9.5 fL Normal 9.0-12.7 [facility] Comment on above: Order Comment: Speci men Type: BLOOD SPECIMENOrdering Facility: [facility] Address: [address] [place] [address] Performed By: #### 5 8410-2 ####[facility] [id number] [place] [address] [place] Platelets (Bld) [#/Vol] 232 10*3/uL Normal 150-400 [facility] Comment on above: Order Comment: Speci men Type: BLOOD SPECIMENOrdering Facility: [facility] Address: [address] [place] [address] Performed By: #### 5 8410-2 ####[facility] [id number] [place] [address] [place] RBC (Bld) [#/Vol] 3.54 10*6/uL Low 3.90-5.20 [facility] Comment on above: Order Comment: Speci men Type: BLOOD SPECIMENOrdering Facility: [facility] Address: [address] [place] [address] Performed By: #### 5 8410-2 ####[facility] [id number] [place] [address] [place] WBC (Bld) [#/Vol] 8.20 10*3/uL Normal 3.70-11.00 [facility] Comment on above: Order Comment: Speci men Type: BLOOD SPECIMENOrdering Facility: [facility] Address: [address] [place] [address] Performed By: #### 5 8410-2 ####[facility] JAYLON CRUZ [id number] [address] [place] Kassi 03-13-2025 CNPN Telephone (OBGYWM) KARISSA ARIZA ([id number]) 1990 F Date Time Provider Department 03/13/25 [...] Status:Closed by CHAYITO CEDENO on 03/13/25 Normal [facility] Examination level ultrasound on 03-02-2025 [facility] Radiology Study observation (narrative) [facility] Kassi 02-23-2025 CRISTINA Telephone (OBGYWM) KARISSA ARIZA ([id number]) 1990 F Date Time Provider Department 02/23/25 [...] Status:Closed by VALERIO CHAVEZ on 02/23/25 Normal [facility] GLUCOSE GESTATIONAL, 1 HOURo n 01-31-2025 Glucose 1 Hr post Unsp challenge [Mass/Vol] 185 mg/dL High 74-179 [facility] Comment on above: Order Comment: Speci men Type: BLOOD SPECIMEN [facility] Address: [facility] [place] [address] Result Comment: [facility] Congress of Obstetricians and Gynecologists (Patrick/Linda) guidelines state gestational diabetes mellitus is present when 2 or more of the plasma glucose concentrations meet or exceed the following levels: fastin mg/dl, 1 hr: 180 mg/dl, 2 hr: 155 mg/dl, and 3 hr: 140 mg/dl. Performed By: #### 2 276-4, 23137-9 #### [facility] CLIA [id number] [address] [place] [address] [place] GLUCOSE GESTATIONAL, 2 HOURo n 01-31-2025 Glucose 2 Hr post Unsp challenge [Mass/Vol] 141 mg/dL Normal 74-154 [facility] Comment on above: Order Comment: Giovanni rosa Type: BLOOD SPECIMENOrdering Facility: [facility] Address: [address] [place] [address] Result Comment: [facility] Congress of Obstetricians and Gynecologists (Nguyen/Coustan) guidelines state gestational diabetes mellitus is present when 2 or more of the plasma glucose concentrations meet or exceed the following levels: fastin mg/dl, 1 hr: 180 mg/dl, 2 hr: 155 mg/dl, and 3 hr: 140 mg/dl. Performed By: #### G TGST2 ####[facility] [id number] [place] [address] [place] GLUCOSE GESTATIONAL, 3 HOURo n 01-31-2025 Glucose 3 Hr post Unsp challenge [Mass/Vol] 93 mg/dL Normal 74-139 [facility] Comment on above: Order Comment: Giovanni rosa Type: BLOOD SPECIMENOrdering Facility: [facility] Address: [address] [place] [address] Result Comment: [facility] Congress of Obstetricians and Gynecologists ([facility]) guidelines state gestational diabetes mellitus is present when 2 or more of the plasma glucose concentrations meet or exceed the following levels: fastin mg/dl, 1 hr: 180 mg/dl, 2 hr: 155 mg/dl, and 3 hr: 140 mg/dl. Performed By: #### G TGST3 ####[facility] [id number] [place] [address] [place] GLUCOSE GESTATIONAL, FASTING on 01-31-2025 Glucose post fast [Mass/Vol] 90 mg/dL Normal 74-94 [facility] Comment on above: Order Comment: Speci men Type: BLOOD SPECIMENOrdering Facility: [facility] Address: [address] [place] [address] Result Comment: [facility] Congress of Obstetricians and Gynecologists (Patrick/Linda) guidelines state gestational diabetes mellitus is present when 2 or more of the plasma glucose concentrations meet or exceed the following levels: fastin mg/dl, 1 hr: 180 mg/dl, 2 hr: 155 mg/dl, and 3 hr: 140 mg/dl. Performed By: #### G TGSTF ####[facility] [id number] [place] [address] [place] CBC W Auto Differential pane l (Bld)on 01-30-2025 Basophils (Bld) [#/Vol] 0.03 10*3/uL Normal <0.11 [facility] Comment on above: Order Comment: Speci men Type: BLOOD SPECIMEN [facility] Address: [address] [place] [address] Performed By: #### 2 276-4, 30429-8 #### [facility] CLIA [id number] [address] [place] [address] [place] Basophils/100 WBC (Bld) 0.4 % Normal [facility] Comment on above: Order Comment: Speci men Type: BLOOD SPECIMEN [facility] Address: [address] [place] [address] Performed By: #### 2 276-4, 57267-9 #### [facility] CLIA [id number] [address] [place] [address] [place] Differential cell count method Nom (Bld) Auto Normal [facility] Comment on above: Order Comment: Speci men Type: BLOOD SPECIMEN [facility] Address: [address] [place] [address] Performed By: #### 2 276-4, 14659-1 #### [facility] CLIA [id number] [address] [place] [address] [place] Eosinophils (Bld) [#/Vol] 0.07 10*3/uL Normal <0.46 [facility] Comment on above: Order Comment: Speci men Type: BLOOD SPECIMEN [facility] Address: [address] [place] [address] Performed By: #### 2 276-4, 59061-3 #### [facility] CLIA [id number] [address] [place] [address] [place] Eosinophils/100 WBC (Bld) 1.0 % Normal [facility] Comment on above: Order Comment: Speci men Type: BLOOD SPECIMEN [facility] Address: [address] [place] [address] Performed By: #### 2 276-4, 04265-1 #### [facility] CLIA [id number] [address] [place] [address] [place] Erythrocyte distribution width (RBC) [Ratio] 12.9 % Normal 11.5-15.0 [facility] Comment on above: Order Comment: Speci men Type: BLOOD SPECIMEN [facility] Address: [address] [place] [address] Performed By: #### 2 276-4, 62437-2 #### [facility] CLIA [id number] [address] [place] [address] [place] Hematocrit (Bld) [Volume fraction] 30.1 % Low 36.0-46.0 [facility] Comment on above: Order Comment: Speci men Type: BLOOD SPECIMEN [facility] Address: [address] [place] [address] Performed By: #### 2 276-4, 09412-6 #### [facility] CLIA [id number] [address] [place] [address] [place] Hemoglobin (Bld) [Mass/Vol] 10.3 g/dL Low 11.5-15.5 [facility] Comment on above: Order Comment: Speci men Type: BLOOD SPECIMEN [facility] Address: [address] [place] [address] Performed By: #### 2 276-4, 31825-2 #### [facility] CLIA [id number] [address] [place] [address] [place] Immature granulocytes (Bld) [#/Vol] 0.06 10*3/uL Normal <0.10 [facility] Comment on above: Order Comment: Speci men Type: BLOOD SPECIMEN [facility] Address: [address] [place] [address] Performed By: #### 2 276-4, 42317-4 #### [facility] CLIA [id number] [address] [place] [address] [place] Immature granulocytes/100 WBC (Bld) 0.8 % Normal [facility] Comment on above: Order Comment: Speci men Type: BLOOD SPECIMEN [facility] Address: [address] [place] [address] Performed By: #### 2 276-4, 18077-9 #### [facility] CLIA [id number] [address] [place] [address] [place] Lymphocytes (Bld) [#/Vol] 1.24 10*3/uL Normal 1.00-4.00 [facility] Comment on above: Order Comment: Speci men Type: BLOOD SPECIMEN [facility] Address: [address] [place] [address] Performed By: #### 2 276-4, 64622-4 #### [facility] CLIA [id number] [address] [place] [address] [place] Lymphocytes/100 WBC (Bld) 17.0 % Normal [facility] Comment on above: Order Comment: Speci men Type: BLOOD SPECIMEN [facility] Address: [address] [place] [address] Performed By: #### 2 276-4, 03612-6 #### [facility] CLIA [id number] [address] [place] [address] [place] MCH (RBC) [Entitic mass] 30.4 pg Normal 26.0-34.0 [facility] Comment on above: Order Comment: Speci men Type: BLOOD SPECIMEN [facility] Address: [address] [place] [address] Performed By: #### 2 276-4, 84972-1 #### [facility] CLIA [id number] [address] [place] [address] [place] MCHC (RBC) [Mass/Vol] 34.2 g/dL Normal 30.5-36.0 [facility] Comment on above: Order Comment: Speci men Type: BLOOD SPECIMEN [facility] Address: [address] [place] [address] Performed By: #### 2 276-4, 20679-0 #### [facility] CLIA [id number] [address] [place] [address] [place] MCV (RBC) [Entitic vol] 88.8 fL Normal 80.0-100.0 [facility] Comment on above: Order Comment: Speci men Type: BLOOD SPECIMEN [facility] Address: [address] [place] [address] Performed By: #### 2 276-4, 90229-0 #### [facility] CLIA [id number] [address] [place] [address] [place] Monocytes (Bld) [#/Vol] 0.38 10*3/uL Normal <0.87 [facility] Comment on above: Order Comment: Speci men Type: BLOOD SPECIMEN [facility] Address: [address] [place] [address] Performed By: #### 2 276-4, 33822-3 #### [facility] CLIA [id number] [address] [place] [address] [place] Monocytes/100 WBC (Bld) 5.2 % Normal [facility] Comment on above: Order Comment: Speci men Type: BLOOD SPECIMEN [facility] Address: [address] [place] [address] Performed By: #### 2 276-4, 94801-9 #### [facility] CLIA [id number] [address] [place] [address] [place] Neutrophils (Bld) [#/Vol] 5.51 10*3/uL Normal 1.45-7.50 [facility] Comment on above: Order Comment: Speci men Type: BLOOD SPECIMEN [facility] Address: [address] [place] [address] Performed By: #### 2 276-4, 32818-4 #### [facility] CLIA [id number] [address] [place] [address] [place] Neutrophils/100 WBC (Bld) 75.6 % Normal [facility] Comment on above: Order Comment: Speci men Type: BLOOD SPECIMEN [facility] Address: [address] [place] [address] Performed By: #### 2 276-4, 63628-6 #### [facility] CLIA [id number] [address] [place] [address] [place] Nucleated RBC (Bld) [#/Vol] 10*3/uL Normal <0.01 [facility] Comment on above: Order Comment: Speci men Type: BLOOD SPECIMEN [facility] Address: [address] [place] [address] Performed By: #### 2 276-4, 52896-9 #### [facility] CLIA [id number] [address] [place] [address] [place] Nucleated RBC/100 WBC (Bld) [Ratio] 0.0 /100 WBC Normal [facility] Comment on above: Order Comment: Speci men Type: BLOOD SPECIMEN [facility] Address: [address] [place] [address] Performed By: #### 2 276-4, 07380-0 #### [facility] CLIA [id number] [address] [place] [address] [place] Platelet mean volume (Bld) [Entitic vol] 9.4 fL Normal 9.0-12.7 [facility] Comment on above: Order Comment: Speci men Type: BLOOD SPECIMEN [facility] Address: [address] [place] [address] Performed By: #### 2 276-4, 62831-2 #### [facility] CLIA [id number] [address] [place] [address] [place] Platelets (Bld) [#/Vol] 257 10*3/uL Normal 150-400 [facility] Comment on above: Order Comment: Speci men Type: BLOOD SPECIMEN [facility] Address: [address] [place] [address] Performed By: #### 2 276-4, 00071-5 #### [facility] CLIA [id number] [address] [place] [address] [place] RBC (Bld) [#/Vol] 3.39 10*6/uL Low 3.90-5.20 [facility] Comment on above: Order Comment: Speci men Type: BLOOD SPECIMEN [facility] Address: [address] [place] [address] Performed By: #### 2 276-4, 08175-7 #### [facility] CLIA [id number] [address] [place] [address] [place] WBC (Bld) [#/Vol] 7.29 10*3/uL Normal 3.70-11.00 [facility] Comment on above: Order Comment: Speci men Type: BLOOD SPECIMEN [facility] Address: [address] [place] [address] Performed By: #### 2 276-4, 07510-2 #### [facility] CLIA [id number] [address] [place], [place] [address] [place] Examination level ultrasound on 01-30-2025 [facility] Radiology Study observation (narrative) [facility] Ferritin SerPl-mCncon 2024 Ferritin [Mass/Vol] 16.4 ng/mL Normal 14.7-205.1 [facility] Comment on above: Order Comment: Giovanni rosa Type: BLOOD SPECIMEN [facility] Address: [address] [place] [address] Performed By: #### 2 276-4, 16929-1 #### [facility] CLIA [id number] [address] [place] [address] [place] GESTATIONAL GLUCOSE SCREEN, 1-HOUR, 50 GRAM, NON-FASTINGon 01-30-2025 Glucose [Mass/Vol] 171 mg/dL High 74-134 [facility] Comment on above: Order Comment: Giovanni rosa Type: BLOOD SPECIMENOrdering Facility: [facility] Address: [address] [place] [address] Result Comment: [facility] Congress of Obstetricians and Gynecologists (Nguyen/Linda) guidelines state a gestational diabetes mellitus positive screen is made, in women not previously diagnosed with overt diabetes, when the 1 hr plasma glucose level is equal to or above 140 mg/dL. The [facility] Electrologist and [facility] [place] recommends a 135 mg/dL cutoff. Performed By: #### G LTGST ####[facility] [id number] [place] [id number] [place] Iron and Iron binding capaci ty panelon 01-30-2025 Iron [Mass/Vol] 130 ug/dL Normal 41-186 [facility] Comment on above: Order Comment: Giovanni rosa Type: BLOOD SPECIMEN [facility] Address: [address] [place] [address] Performed By: #### 2 276-4, 71373-3 #### [facility] CLIA [id number] [address] [place] [address] [place] Iron binding capacity [Mass/Vol] 418 ug/dL High 232-386 [facility] Comment on above: Order Comment: Speci men Type: BLOOD SPECIMEN [facility] Address: [address] [place] [address] Performed By: #### 2 276-4, 01694-3 #### [facility] CLIA [id number] [address] [place] [address] [place] Iron/TIBC [Molar ratio] 31.1 % Normal 15.0-57.0 [facility] Comment on above: Order Comment: Speci men Type: BLOOD SPECIMEN [facility] Address: [address] [place] [address] Performed By: #### 2 276-4, 62427-0 #### [facility] CLIA [id number] [address] [place] [address] [place] Reagin and Treponema pallidu m IgG and IgM [Interp]on 01-30-2025 T. pallidum IgG+IgM IA Ql (S) Non-Reactive Normal Nonreactive [facility] Comment on above: Order Comment: Speci men Type: BLOOD SPECIMEN [facility] Address: [address] [place] [address] Performed By: #### 2 276-4, 90947-8 #### [facility] CLIA [id number] [address] [place] [address] [place] Reagin+T pallidum IgG+IgM Se rPl-Impon 01-30-2025 Reagin and Treponema pallidum IgG and IgM [Interp] Cannot exclude recent Treponemal infection if specimen collected within 7-10 days after appearance of suspect lesions or 2-3 weeks after an exposure. Clinical correlation is required. Normal [facility] Comment on above: Order Comment: Speci men Type: BLOOD SPECIMEN [facility] Address: [address] [place] [address] Performed By: #### 2 276-4, 38314-8 #### [facility] CLIA [id number] [address] [place] [address] [place] [address] [place] CNCOon 01-25-2025 CNCO Letter Text Normal [facility] CNPNon 01-25-2025 CNPN Telephone (4CQ) KARISSA ARIZA ([id number]) 1990 F Date Time Provider Department 01/25/25 [facility] 4CQ During your visit today, we recorded the following information about you: Mackenzie Farley 01/25/2025 9:07 AM Signed [facility] asking if Patient has any corresponding restrictions regarding x rays,medication, or any dental care can they be faxed over o [phone]. Please advise, Thank you Dulce Chang RN 01/25/2025 9:18 AM Signed Letter faxed. [facility] message sent to patient. Dulce Chang RN [...] Status:Closed by DULCE CHANG on 01/25/25 Normal [facility] [facility] Examination level ultrasound on 01-02-2025 [facility] Radiology Study observation (narrative) [facility] CNCOon 12-05-2024 CNCO Letter Text Normal [facility] Examination level ultrasound on 12-05-2024 Indication Detailed [...] Hadlock Femur 32.9 mm 20w 3d 78% Atremio Humerus 31.1 mm 20w 2d 72% Artemio EFW 315 g 19w 5d 43% Hadlock EFW discordance 3.1 % EFW (lb) 0 lb EFW (oz) 11 oz EFW by: Hadlock (HC-AC-FL) Extended Voice Studies Director 5.1 mm CM 3.3 mm 6% Nicolaides [...] 11 oz EFW by: Hadlock (HC-AC-FL) Extended Voice Studies Director 6.7 mm CM 4.7 mm 40% Nicolaides [...] normal LVOT view: normal 3-vessel view: normal 7-wqzqem-kcpaphr view: normal Heart / Thorax Situs: situs [...] forearm: (more content not included)... MATERNAL MEDICINE [facility] Radiology Study observation (narrative) [facility] Kassi 10-15-2024 CNPAnjel Telephone (UCWSTR) KARISSA ARIZA ([id number]) 1990 F Date Time Provider Department 10/15/24 [facility] During your [facility] today, we recorded the following information about you: Caren Carreno APRN.SHARDA 10/15/2024 9:35 AM Signed Please let the patient know that her vitamin D level is low and I would like her to take 2000 units daily. Caren Carreno APRN.Chayito Yin RN 10/16/2024 8:33 AM Signed Left message for patient to call office or check [employer] message. Chayito Cedeno RN Allergies As of [...] Status:Closed by CHAYITO CEDENO on 10/16/24 Normal [facility] 25(OH)D3 SerPl-mCglynnon 2024 25-hydroxyvitamin D3 [Mass/Vol] 26.1 ng/mL Low 31.0-80.0 [facility] Comment on above: Order Comment: Speci men Type: BLOOD SPECIMENOrdering Facility: [facility] Address: [address] [place] [address] Result Comment: Clas sification of 25 OH Vitamin D status: Deficiency/Insufficiency: < or = 30 ng/ml. Sufficiency/Optimal Levels: 31-80 ng/mL Toxicity: > 100 ng/mL. Test performed by chemiluminescent immunoassay. Performed By: #### R UBIGG, 1988-12 ####[facility] LABCL[facility] [id number] [place] [address] [place] CBC W Auto Differential pane l (Bld)on 10-13-2024 Basophils (Bld) [#/Vol] 0.04 10*3/uL Normal <0.11 [facility] Comment on above: Order Comment: Speci men Type: BLOOD SPECIMENOrdering Facility: [facility] Address: [address] [place] [address] Performed By: #### 5 7021-8 ####[facility] [id number] [place] [address] [place] Basophils/100 WBC (Bld) 0.6 % Normal [facility] Comment on above: Order Comment: Speci men Type: BLOOD SPECIMENOrdering Facility: [facility] Address: [address] [place] [address] Performed By: #### 5 7021-8 ####[facility] [id number] [place] [address] [place] Differential cell count method Nom (Bld) Auto Normal [facility] Comment on above: Order Comment: Speci men Type: BLOOD SPECIMENOrdering Facility: [facility] Address: [address] [place] [address] Performed By: #### 5 7021-8 ####[facility] SOPHIESUNITA [id number] [place] [address] [place] Eosinophils (Bld) [#/Vol] 0.04 10*3/uL Normal <0.46 [facility] Comment on above: Order Comment: Speci men Type: BLOOD SPECIMENOrdering Facility: [facility] Address: [address] [place] [address] Performed By: #### 5 7021-8 ####[facility]IMMEEGLYNNMark Anthony [id number] [place] [address] [place] Eosinophils/100 WBC (Bld) 0.6 % Normal [facility] Comment on above: Order Comment: Speci men Type: BLOOD SPECIMENOrdering Facility: [facility] Address: [address] [place] [address] Performed By: #### 5 7021-8 ####[facility] KISSIMMEENCMark Anthony [id number] [place] [address] [place] Erythrocyte distribution width (RBC) [Ratio] 13.5 % Normal 11.5-15.0 [facility] Comment on above: Order Comment: Speci men Type: BLOOD SPECIMENOrdering Facility: [facility] Address: [address] [place] [address] Performed By: #### 5 7021-8 ####[facility]MEENCL[facility] [id number] [place] [address] [place] Hematocrit (Bld) [Volume fraction] 33.2 % Low 36.0-46.0 [facility] Comment on above: Order Comment: Speci men Type: BLOOD SPECIMENOrdering Facility: [facility] Address: [address] [place] [address] Performed By: #### 5 7021-8 ####[facility] WESTWNCLIA [id number] [place] [address] [place] Hemoglobin (Bld) [Mass/Vol] 11.4 g/dL Low 11.5-15.5 [facility] Comment on above: Order Comment: Speci men Type: BLOOD SPECIMENOrdering Facility: [facility] Address: [address] [place] [address] Performed By: #### 5 7021-8 ####[facility]ITALLIA [id number] [place] [address] [place] Immature granulocytes (Bld) [#/Vol] 10*3/uL Normal <0.10 [facility] Comment on above: Order Comment: Speci men Type: BLOOD SPECIMENOrdering Facility: [facility] Address: [address] [place] [address] Performed By: #### 5 7021-8 ####[facility] [id number] [place] [address] [place] Immature granulocytes/100 WBC (Bld) 0.3 % Normal [facility] Comment on above: Order Comment: Speci men Type: BLOOD SPECIMENOrdering Facility: [facility] Address: [address] [place] [address] Performed By: #### 5 7021-8 ####[facility]OSPITALLIA [id number] [place] [address] [place] Lymphocytes (Bld) [#/Vol] 1.55 10*3/uL Normal 1.00-4.00 [facility] Comment on above: Order Comment: Speci men Type: BLOOD SPECIMENOrdering Facility: [facility] Address: [address] [place] [address] Performed By: #### 5 7021-8 ####[facility]MEENCL[facility] [id number] [place] [address] [place] Lymphocytes/100 WBC (Bld) 23.9 % Normal [facility] Comment on above: Order Comment: Speci men Type: BLOOD SPECIMENOrdering Facility: [facility] Address: [address] [place] [address] Performed By: #### 5 7021-8 ####[facility] [id number] [place] [address] [place] MCH (RBC) [Entitic mass] 29.8 pg Normal 26.0-34.0 [facility] Comment on above: Order Comment: Speci men Type: BLOOD SPECIMENOrdering Facility: [facility] Address: [address] [place] [address] Performed By: #### 5 7021-8 ####[facility] [id number] [place] [address] [place] MCHC (RBC) [Mass/Vol] 34.3 g/dL Normal 30.5-36.0 [facility] Comment on above: Order Comment: Speci men Type: BLOOD SPECIMENOrdering Facility: [facility] Address: [address] [place] [address] Performed By: #### 5 7021-8 ####[facility]IMMEENCLI [id number] [place] [address] [place] MCV (RBC) [Entitic vol] 86.9 fL Normal 80.0-100.0 [facility] Comment on above: Order Comment: Speci men Type: BLOOD SPECIMENOrdering Facility: [facility] Address: [address] [place] [address] Performed By: #### 5 7021-8 ####[facility]ENCL[facility] [id number] [place] [address] [place] Monocytes (Bld) [#/Vol] 0.54 10*3/uL Normal <0.87 [facility] Comment on above: Order Comment: Speci men Type: BLOOD SPECIMENOrdering Facility: [facility] Address: [address] [place] [address] Performed By: #### 5 7021-8 ####[facility]IMMEEJORGE [id number] [place] [address] [place] Monocytes/100 WBC (Bld) 8.3 % Normal [facility] Comment on above: Order Comment: Speci men Type: BLOOD SPECIMENOrdering Facility: [facility] Address: [address] [place] [address] Performed By: #### 5 7021-8 ####[facility] [id number] [place] [address] [place] Neutrophils (Bld) [#/Vol] 4.30 10*3/uL Normal 1.45-7.50 [facility] Comment on above: Order Comment: Speci men Type: BLOOD SPECIMENOrdering Facility: [facility] Address: [address] [place] [address] Performed By: #### 5 7021-8 ####[facility] [id number] [place] [address] [place] Neutrophils/100 WBC (Bld) 66.3 % Normal [facility] Comment on above: Order Comment: Speci men Type: BLOOD SPECIMENOrdering Facility: [facility] Address: [address] [place] [address] Performed By: #### 5 7021-8 ####[facility] [id number] [place] [address] [place] Nucleated RBC (Bld) [#/Vol] 10*3/uL Normal <0.01 [facility] Comment on above: Order Comment: Speci men Type: BLOOD SPECIMENOrdering Facility: [facility] Address: [address] [place] [address] Performed By: #### 5 7021-8 ####[facility] SOPHIEGLADYSLIA [id number] [place] [address] [place] Nucleated RBC/100 WBC (Bld) [Ratio] 0.0 /100 WBC Normal [facility] Comment on above: Order Comment: Speci men Type: BLOOD SPECIMENOrdering Facility: [facility] Address: [address] [place] [address] Performed By: #### 5 7021-8 ####[facility]IMMEEJERILYNA [id number] [place] [address] [place] Platelet mean volume (Bld) [Entitic vol] 9.5 fL Normal 9.0-12.7 [facility] Comment on above: Order Comment: Speci men Type: BLOOD SPECIMENOrdering Facility: [facility] Address: [address] [place] [address] Performed By: #### 5 7021-8 ####[facility] [id number] [place] [address] [place] Platelets (Bld) [#/Vol] 320 10*3/uL Normal 150-400 [facility] Comment on above: Order Comment: Speci men Type: BLOOD SPECIMENOrdering Facility: [facility] Address: [address] [place] [address] Performed By: #### 5 7021-8 ####[facility]OSPITALDEBIA [id number] [place] [address] [place] RBC (Bld) [#/Vol] 3.82 10*6/uL Low 3.90-5.20 [facility] Comment on above: Order Comment: Speci men Type: BLOOD SPECIMENOrdering Facility: [facility] Address: [address] [place] [address] Performed By: #### 5 7021-8 ####[facility]CL[facility] [id number] [place] [address] [place] WBC (Bld) [#/Vol] 6.49 10*3/uL Normal 3.70-11.00 [facility] Comment on above: Order Comment: Speci men Type: BLOOD SPECIMENOrdering Facility: [facility] Address: [address] [place] [address] Performed By: #### 5 7021-8 ####[facility] SOPHIEWGLYNNLIA [id number] [place] [address] [place] [facility] Comprehensive metabolic 2000 panelon 10-13-2024 Albumin [Mass/Vol] 3.9 g/dL Normal 3.9-4.9 [facility] Comment on above: Order Comment: Speci men Type: BLOOD SPECIMENOrdering Facility: [facility] Address: [address] [place] [address] Performed By: #### 2 4323-8 ####[facility]EGLYNNLIA [id number] [place] [address] [place] ALP [Catalytic activity/Vol] 60 U/L Normal 34-123 [facility] Comment on above: Order Comment: Speci men Type: BLOOD SPECIMENOrdering Facility: [facility] Address: [address] [place] [address] Performed By: #### 2 4323-8 ####[facility]EGLYNNLIA [id number] [place] [address] [place] ALT [Catalytic activity/Vol] 9 U/L Normal 7-38 [facility] Comment on above: Order Comment: Speci men Type: BLOOD SPECIMENOrdering Facility: [facility] Address: [address] [place] [address] Performed By: #### 2 4323-8 ####[facility] WESTWNCLIA [id number] [place] [address] [place] Anion gap [Moles/Vol] 7 mmol/L Low 8-15 [facility] Comment on above: Order Comment: Speci men Type: BLOOD SPECIMENOrdering Facility: [facility] Address: [address] [place] [address] Performed By: #### 2 4323-8 ####[facility] AUDRANCLILIAN [id number] [place] [address] [place] AST [Catalytic activity/Vol] 10 U/L Low 13-35 [facility] Comment on above: Order Comment: Speci men Type: BLOOD SPECIMENOrdering Facility: [facility] Address: [address] [place] [address] Performed By: #### 2 4323-8 ####[facility] SOPHIEDACONONCLILIAN [id number] [place] [address] [place] Bilirubin [Mass/Vol] 0.5 mg/dL Normal 0.2-1.3 [facility] Comment on above: Order Comment: Speci men Type: BLOOD SPECIMENOrdering Facility: [facility] Address: [address] [place] [address] Performed By: #### 2 4323-8 ####[facility]CL[facility] [id number] [place] [address] [place] Calcium [Mass/Vol] 9.1 mg/dL Normal 8.5-10.2 [facility] Comment on above: Order Comment: Speci men Type: BLOOD SPECIMENOrdering Facility: [facility] Address: [address] [place] [address] Performed By: #### 2 4323-8 ####[facility]CL[facility] [id number] [place] [address] [place] Chloride [Moles/Vol] 104 mmol/L Normal 98-107 [facility] Comment on above: Order Comment: Speci men Type: BLOOD SPECIMENOrdering Facility: [facility] Address: [address] [place] [address] Performed By: #### 2 4323-8 ####[facility] WESTWNCLIA [id number] [place] [address] [place] CO2 [Moles/Vol] 22 mmol/L Normal 22-30 [facility] Comment on above: Order Comment: Speci men Type: BLOOD SPECIMENOrdering Facility: [facility] Address: [address] [place] [address] Performed By: #### 2 4323-8 ####[facility] HOSPITALLI [id number] [place] [address] [place] Creatinine [Mass/Vol] 0.67 mg/dL Normal 0.58-0.96 [facility] Comment on above: Order Comment: Speci men Type: BLOOD SPECIMENOrdering Facility: [facility] Address: [address] [place] [address] Performed By: #### 2 4323-8 ####[facility] [id number] [place] [address] [place] Creatinine and Glomerular filtration rate.predicted panel (S/P/Bld) 118 mL/min/1.73m??? Normal >=60 [facility] Comment on above: Order Comment: Speci men Type: BLOOD SPECIMENOrdering Facility: [facility] Address: [address] [place] [address] Result Comment: Marisol mated Glomerular Filtration Rate [...] actual GFR. Performed By: #### 2 4323-8 ####[facility] [id number] [place] [address] [place] Glucose [Mass/Vol] 84 mg/dL Normal 74-99 [facility] Comment on above: Order Comment: Speci men Type: BLOOD SPECIMENOrdering Facility: [facility] Address: [address] [place] [address] Result Comment: The [place] [employer] Association (ADA) provides guidance for cutoff [...] Standards of Medical Care in Diabetes 2016, [place] [employer]. Diabetes Care. 2016.39(Suppl 1). Performed By: #### 2 4323-8 ####[facility] [id number] [place] [address] [place] Potassium [Moles/Vol] 3.7 mmol/L Normal 3.7-5.1 [facility] Comment on above: Order Comment: Giovanni rosa Type: BLOOD SPECIMENOrdering Facility: [facility] Address: [address] [place] [address] Performed By: #### 2 4323-8 ####[facility]ITALL[facility] [id number] [place] [address] [place] Protein [Mass/Vol] 6.7 g/dL Normal 6.3-8.0 [facility] Comment on above: Order Comment: Giovanni rosa Type: BLOOD SPECIMENOrdering Facility: [facility] Address: [address] [place], [place] [address] Performed By: #### 2 4323-8 ####[facility]CL[facility] [id number] [place] [address] [place] Sodium [Moles/Vol] 133 mmol/L Low 136-144 [facility] Comment on above: Order Comment: Speci men Type: BLOOD SPECIMENOrdering Facility: [facility] Address: [address] [place] [address] Performed By: #### 2 4323-8 ####[facility]IMMEENCDEBIA [id number] [place] [address] [place] Urea nitrogen [Mass/Vol] 6 mg/dL Low 7-21 [facility] Comment on above: Order Comment: Speci men Type: BLOOD SPECIMENOrdering Facility: [facility] Address: [address] [place] [address] Performed By: #### 2 4323-8 ####[facility]CL[facility] [id number] [place] [address] [place] HBV surface Ag Ser Qlon 10-04 HBV surface Ag Ql (S) Negative Normal Negative [facility] Comment on above: Order Comment: Speci men Type: BLOOD SPECIMENOrdering Facility: [facility] Address: [address] [place] [address] Performed By: #### 5 195-3, 05472-7, 04451-5 ####[facility] LABCLIA [id number] [place] [address] [place] HCV Ab Ser Qlon 10-13-2024 HCV Ab Ql (S) Negative Normal Negative [facility] Comment on above: Order Comment: Speci men Type: BLOOD SPECIMEN [facility] Address: [address] [place] [address] Result Comment: The result suggests no evidence of active infection with Hepatitis C virus. Should recent infection be suspected, repeat testing may be considered 4-6 weeks after this draw. Performed By: #### 1 6128-1 #### [facility] CLIA [id number] [address] [place] [address] [place] HIV 1+2 Ab IA Qlon HIV 1 and 2 Ab IA.rapid Nom (S/P/Bld) Normal [facility] Comment on above: Order Comment: Speci men Type: BLOOD SPECIMENOrdering Facility: [facility] Address: [address] [place] [address] Result Comment: Test not indicated. Performed By: #### 5 195-3, 63071-0, 88889-5 ####[facility] LABCLIA [id number] [place] [address] [place] HIV 1+2 Ab+HIV1 p24 Ag IA Ql Non-Reactive Normal Nonreactive [facility] Comment on above: Order Comment: Speci men Type: BLOOD SPECIMENOrdering Facility: [facility] Address: [address] [place] [address] Performed By: #### 5 195-3, 44613-0, 63374-7 ####[facility] LABCLIA [id number] [place] [address] [place] HIV immunoassay testing algorithm interpretation (S/P/Bld) [Interp] Normal [facility] Comment on above: Order Comment: Speci men Type: BLOOD SPECIMENOrdering Facility: [facility] Address: [address] [place] [address] Result Comment: No e vidence of HIV-1 or HIV-2 infection. Should recent infection be suspected, repeat testing may be considered 2-3 weeks after this draw. [place] Rev. Code 3701.243(E): This information has been [...] or diagnoses. Performed By: #### 5 195-3, 47358-5, 72956-2 ####[facility] LABCLIA [id number] [place] [id number] [place] HbA1c (Bld)on 10-13-2024 Average glucose Estimated from glycated hemoglobin (Bld) [Mass/Vol] 85 mg/dL Normal [facility] Comment on above: Order Comment: Giovanni rosa Type: BLOOD SPECIMENOrdering Facility: [facility] Address: [address] [place] [address] Result Comment: eAG: (Estimated average glucose) is a calculated value from HgbA1c and is patient intake representative of the average blood glucose level in the last 2-3 month period. Performed By: #### 5 5454-3 ####[facility] [id number] [address] [facility] HbA1c (Bld) [Mass fraction] 4.6 % Normal 4.3-5.6 [facility] Comment on above: Order Comment: Giovanni [facility] Type: BLOOD SPECIMENOrdering Facility: [facility] Address: [address] [place] [address] Result Comment: A he terozygous hemoglobin variant was possibly detected. Most heterozygous hemoglobin variants do not interfere with this assay. However, interpret this hemoglobin A1c result within the patient's clinical context, as the lifespan of red blood cells may be altered. If identification of a previously unidentified hemoglobin variant is clinically indicated, consider ordering the hemoglobin evaluation cascade test. [place] [employer] guidelines indicate that patients with HgbA1c in the range 5.7-6.4% are at increased risk for development of diabetes, and intervention by lifestyle modification may be beneficial. HgbA1c greater or equal to 6.5% is considered diagnostic of diabetes. Performed By: #### 5 5454-3 ####[facility] [id number] [address] [place] RUBELLA IGG ANTIBODYon 10-13 RUBELLA IGG AB, QUAL Positive Normal Positive [facility] Comment on above: Order Comment: Giovanni shelley Type: BLOOD SPECIMENOrdering Facility: [facility] Address: [address] [place] [address] Result Comment: The result suggests recent or past exposure to Rubella virus or history of Rubella vaccination. Positive result may also be seen due to presence of passively-transferred antibodies. Please correlate with patient's history. Performed By: #### R KEYUR, 1988-12 ####[facility] LABCLIA [id number] [place] [address] [place] Reagin and Treponema pallidu m IgG and IgM [Interp]on 10-13-2024 T. pallidum IgG+IgM IA Ql (S) Non-Reactive Normal Nonreactive [facility] Comment on above: Order Comment: Speci men Type: BLOOD SPECIMENOrdering Facility: [facility] Address: [address] [place] [address] Performed By: #### 5 195-3, 37172-4, 66529-8 ####[facility] LABCLIA [id number] [place] [address] [place] Reagin+T pallidum IgG+IgM Se rPl-Impon 10-13-2024 Reagin and Treponema pallidum IgG and IgM [Interp] Cannot exclude recent Treponemal infection if specimen collected within 7-10 days after appearance of suspect lesions or 2-3 weeks after an exposure. Clinical correlation is required. Normal [facility] Comment on above: Order Comment: Speci men Type: BLOOD SPECIMENOrdering Facility: [facility] Address: [address] [place] [address] Performed By: #### 5 195-3, 59688-4, 82670-1 ####[facility] LABCLIA [id number] [place] [address] [place] TYPE + SCREEN PRENATALon ABO B Normal [facility] Comment on above: Order Comment: Speci men Type: BLOOD SPECIMEN [facility] Address: [address] [place] [address] Performed By: #### 1 6128-1 #### [facility] CLIA [id number] [address] [place] [address] [place] Rh Nom (Bld) Positive Normal [facility] Comment on above: Order Comment: Speci men Type: BLOOD SPECIMEN Ordering Facility: [facility] Address: [address] [place] [id number] Performed By: #### 1 6128-1 #### [facility] CLIA [id number] [address] [place], [place] [address] [place] [id number] [facility] TYPE AND SCREEN EXPIRATION 10/16/2024 23:59 Normal [facility] Comment on above: Order Comment: Speci men Type: BLOOD SPECIMEN Ordering Facility: [facility] Address: [address] [place], [place] [address] Performed By: #### 1 6128-1 #### [facility] CLIA [id number] [address] [place], [place] [address] [address] CNPLauren 10-10-2024 CNPN Telephone (OBGYWM) KARISSA ARIZA ([id number]) 1990 F Date Time Provider Department 10/10/24 [...] Date Reviewed: 09/13/2024 Reviewed by: Yancy Rodriguez APRN.UNDERWRITING ANALYST - Fully Assessed Reason for Visit: Appointment [...] Status:Closed by DULCE CHANG on 10/11/24 Normal [facility] Bacteria Ur Culton Bacteria identified Cx Nom (U) ORGANISM ID: 1 10,000 -<50,000 CFU/ml Normal urogenital poncho Normal [facility] Comment on above: Performed By: #### 6 30-4 ####[facility] [id number] [place] [address] [place] C. trachomatis+N. gonorrhoea e DNA KIRBY+probe Ql (Unsp spec)on 09-13-2024 C. trachomatis rRNA KIRBY+probe Ql (Unsp spec) Not detected Normal Not detected [facility] Comment on above: Order Comment: Speci men Type: BLOOD SPECIMEN Ordering Facility: [facility] Address: [address] [place] [address] Performed By: #### 2 276-4, 82961-8 #### [facility] CLIA [id number] [address] [place] [address] [place] N. gonorrhoeae rRNA KIRBY+probe Ql (Unsp spec) Not detected Normal Not detected [facility] Comment on above: Order Comment: Speci men Type: BLOOD SPECIMEN Ordering Facility: [facility] Address: [address] [place] [address] Performed By: #### 2 276-4, 27399-2 #### [facility] CLIA [id number] [address] [place] [address] [place] POC UTILITIES GROUND WORKER ULTRASOUNDon 09-13-20 Indication Viability; confirm cardiac activity [...] Read By: Yancy Rodriguez NP MATERNAL MEDICINE [facility] Radiology Study observation (narrative) [facility] Kassi 09-11-2024 CNPN Telephone (DANIELGYWM) KARISSA ARIZA ([id number]) 1990 F Date Time Provider Department 09/11/24 [...] Date Reviewed: 04/11/2024 Reviewed by: Christy Rosas APRN.UNDERWRITING ANALYST - Fully Assessed Reason for Visit: Appointment [...] Status:Closed by CHERRY MORENO on 09/12/24 Normal [facility] 25(OH)D3 SerPl-mCncon 2023 25-hydroxyvitamin D3 [Mass/Vol] 22.2 ng/mL Low 31.0-80.0 [facility] Comment on above: Order Comment: Speci men Type: BLOOD SPECIMEN Ordering Facility: [facility] Address: [address] [place] [address] Result Comment: Clas sification of 25 [place] Vitamin D status: Deficiency/Insufficiency: < or = 30 ng/ml. Sufficiency/Optimal Levels: 31-80 ng/mL Toxicity: > 100 ng/mL. Test performed by chemiluminescent immunoassay. Performed By: #### 2 276-4, 76077-4 #### [facility] CLIA [id number] [address] [place] [address] [place] [address] [place] 25-hydroxyvitamin D3 [Mass/V ol]on 04-11-2024 Interpretation and review of laboratory results Abnormal [facility] The reference range interval was based on an analysis of samples from healthy adults and may not pertain to children from 0-18 years old. [facility] CBC panel Auto (Bld)on 04-11 Erythrocyte distribution width (RBC) [Ratio] 12.2 % 11.5 - 15.0 % [facility] Hematocrit (Bld) [Volume fraction] 37.4 % 36.0 - 46.0 % [facility] Hemoglobin (Bld) [Mass/Vol] 12.7 g/dL 11.5 - 15.5 g/dL [facility] Interpretation and review of laboratory results Normal [facility] MCH (RBC) [Entitic mass] 29.3 pg 26.0 - 34.0 pg [facility] MCHC (RBC) [Mass/Vol] 34.0 g/dL 30.5 - 36.0 g/dL [facility] MCV (RBC) [Entitic vol] 86.2 fL 80.0 - 100.0 fL [facility] Nucleated RBC (Bld) [#/Vol] NINF [facility] Platelet mean volume (Bld) [Entitic vol] 9.8 fL 9.0 - 12.7 fL [facility] Platelets (Bld) [#/Vol] 306 10*3/uL [facility] RBC (Bld) [#/Vol] 4.34 10*6/uL 3.90 - 5.2 0 m/uL [facility] WBC (Bld) [#/Vol] 5.05 10*3/uL [facility] Erythrocyte distribution width (RBC) [Ratio] 12.2 % Normal 11.5-15.0 [facility] Comment on above: Order Comment: Giovanni rosa Type: BLOOD SPECIMENOrdering Facility: [facility] Address: [address] [place] [address] Performed By: #### 5 8410-2 ####[facility] [address] [facility]IT[facility] [id number] [place] [id number] [place] Hematocrit (Bld) [Volume fraction] 37.4 % Normal 36.0-46.0 [facility] Comment on above: Order Comment: Giovanni rosa Type: BLOOD SPECIMENOrdering Facility: [facility] Address: [address] [place] [address] Performed By: #### 5 8410-2 ####[facility] MILLANAWNCLIA [id number] [place] [address] [place] Hemoglobin (Bld) [Mass/Vol] 12.7 g/dL Normal 11.5-15.5 [facility] Comment on above: Order Comment: Speci men Type: BLOOD SPECIMENOrdering Facility: [facility] Address: [address] [place] [address] Performed By: #### 5 8410-2 ####[facility] [id number] [place] [address] [place] MCH (RBC) [Entitic mass] 29.3 pg Normal 26.0-34.0 [facility] Comment on above: Order Comment: Speci men Type: BLOOD SPECIMENOrdering Facility: [facility] Address: [address] [place] [address] Performed By: #### 5 8410-2 ####[facility] [id number] [address] [place] MCHC (RBC) [Mass/Vol] 34.0 g/dL Normal 30.5-36.0 [facility] Comment on above: Order Comment: Speci men Type: BLOOD SPECIMENOrdering Facility: [facility] Address: [address] [place] [address] Performed By: #### 5 8410-2 ####[facility] [id number] [place] [address] [place] MCV (RBC) [Entitic vol] 86.2 fL Normal 80.0-100.0 [facility] Comment on above: Order Comment: Speci men Type: BLOOD SPECIMENOrdering Facility: [facility] Address: [address] [place] [address] Performed By: #### 5 8410-2 ####[facility] [id number] [place] [address] [place] Nucleated RBC (Bld) [#/Vol] 10*3/uL Normal <0.01 [facility] Comment on above: Order Comment: Speci men Type: BLOOD SPECIMENOrdering Facility: [facility] Address: [address] [place] [address] Performed By: #### 5 8410-2 ####[facility] [id number] [place] [address] [place] Platelet mean volume (Bld) [Entitic vol] 9.8 fL Normal 9.0-12.7 [facility] Comment on above: Order Comment: Speci men Type: BLOOD SPECIMENOrdering Facility: [facility] Address: [address] [place] [address] Performed By: #### 5 8410-2 ####[facility] [id number] [place] [address] [place] Platelets (Bld) [#/Vol] 306 10*3/uL Normal 150-400 [facility] Comment on above: Order Comment: Speci men Type: BLOOD SPECIMENOrdering Facility: [facility] Address: [address] [place] [address] Performed By: #### 5 8410-2 ####[facility] [id number] [place] [address] [place] RBC (Bld) [#/Vol] 4.34 10*6/uL Normal 3.90-5.20 [facility] Comment on above: Order Comment: Speci men Type: BLOOD SPECIMENOrdering Facility: [facility] Address: [address] [place] [address] Performed By: #### 5 8410-2 ####[facility] [id number] [place] [address] [place] WBC (Bld) [#/Vol] 5.05 10*3/uL Normal 3.70-11.00 [facility] Comment on above: Order Comment: Speci men Type: BLOOD SPECIMENOrdering Facility: [facility] Address: [address] [place] [address] Performed By: #### 5 8410-2 ####[facility] JAYLON TAMAYOGLYNNLIMark Anthony [id number] [place] [id number] [place] CNOVon 04-11-2024 CNOV Office Visit (OBGYWM ) KARISSA ARIZA ([id number]) 1990 F Date Time Provider Department 04/11/24 8:00 AM CHRISTY ROSAS During your visit today, we recorded the following information about you: Pulse Blood pressure Weight Height 76/minute 109/72 105.2 kg 1.715 m Christy Rosas APRN.UNDERWRITING ANALYST 04/11/2024 7:15 PM Signed Patient Summary: Karissa [...] greens and sometimes beef. Dessert - sometimes [place] Fl[employer] cereal and milk S - 8-9 pm [place] [employer] cereal and milk or fried plantain with meat or pizza or chips Fluids: coffee or frozen iced coffee, regular soda, a little water Bedtime - 2330 Quality of diet: 24hr recall suggests somewhat unhealthy diet. Characterization of diet:Unstructured, unhealthy snacking, excessive cravings, evening snacking, and increased consumption of sugar sweetened beverages. 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 Normal [facility] 04-11-2024 [facility] Telephone (BETHEL) KARISSA ARIZA ([id number]) 1990 F Date Time Provider Department 04/11/24 CHRISTY ROSAS During your visit today, we recorded the following information about you: Inna Rodriguez LPN 04/11/2024 10:09 AM Signed Electronic PA submitted for [employer]. Will await further response from pt's insurance.NOAH [...] Status:Closed by CHRISTY ROSAS on 05/01/24 Normal [facility] INSULIN ASSAY BLOODon 2023 Insulin Qn 17.0 u[IU]/mL 3.0 - 25.0 mU/L [facility] Insulin Qnon 04-11-2024 Interpretation and review of laboratory results Normal [facility] Insulin SerPl-aCncon 024 Insulin Qn 17.0 u[IU]/mL Normal 3.0-25.0 [facility] Comment on above: Order Comment: Speci men Type: BLOOD SPECIMEN [facility] Address: [address] [place] [address] Performed By: #### 2 276-4, 47939-0 #### [facility] CLIA [id number] [address] [place] [address] [place] Lipid 1996 panelon 4 Cholesterol [Mass/Vol] 158 mg/dL NINF - 200 mg/dL [facility] Comment on above: <200 mg/dL, Desirabl e 200-239 mg/dL, Borderline high >239 mg/dL, High Cholesterol in HDL [Mass/Vol] 39 mg/dL Low 39 - PINF mg/dL [facility] Comment on above: 40-59 mg/dL, Accepta ble >59 mg/dL, High: Negative risk factor for coronary heart disease <40 mg/dL, Low: Positive risk factor for coronary heart disease Cholesterol in LDL [Mass/Vol] 103 mg/dL High NINF - 100 mg/dL [facility] Comment on above: <100 mg/dL, Optimal 100-129 mg/dL, Near optimal/above optimal 130-159 mg/dL, Borderline high 160-189 mg/dL, High >189 mg/dL, Very high Secondary prevention optimal LDL Cholesterol levels are recommended to be < 70 mg/dL Cholesterol in LDL/Cholesterol in HDL [Mass ratio] 2.64 {ratio} High NINF - 2.54 [facility] Comment on above: Reference: 1. National Cholesterol Education Program ATP III Guideline At-A-Glance Quick Desk Reference: National Heart, Lung, and Blood [place]. National Institutes of Health. 2001: NIH Publication No. 01-3305. 2. An International Atherosclerosis Society position paper: global recommendations for the management of dyslipidemia: executive summary, Atherosclerosis. 2014: 232(2):410-413. Cholesterol in VLDL [Mass/Vol] 16 mg/dL NINF - 30 mg/dL [facility] Cholesterol non HDL [Mass/Vol] 119 mg/dL NINF - 130 mg/dL [facility] Comment on above: <130 mg/dL, Optimal 130-159 mg/dL, Near optimal/above optimal 160-189 mg/dL, Borderline high 190-219 mg/dL, High >219 mg/dL, Very high Secondary prevention optimal non HDL Cholesterol levels are recommended to be <100 mg/dL Cholesterol.total/Ch olesterol in HDL [Mass ratio] 4.05 {ratio} NINF - 5.10 [facility] Fasting Time 12 hrs [facility] Interpretation and review of laboratory results Abnormal [facility] Triglyceride [Mass/Vol] 79 mg/dL NINF - 150 mg/dL [facility] Comment on above: <150 mg/dL, Normal 150-199 mg/dL, Borderline high 200-499 mg/dL, High >499 mg/dL, Very high [facility] Cholesterol [Mass/Vol] 158 mg/dL Normal <200 [facility] Comment on above: Order Comment: Giovanni men Type: BLOOD SPECIMEN [facility] Address: [address] [place] [address] Result Comment: <200 mg/dL, Desirable 200-239 mg/dL, Borderline high >239 mg/dL, High Performed By: #### 2 276-4, 35935-5 #### [facility] CLIA [id number] [address] [place] [address] [place] Cholesterol in HDL [Mass/Vol] 39 mg/dL Low >39 [facility] Comment on above: Order Comment: Giovanni rosa Type: BLOOD SPECIMEN [facility] Address: [address] [place] [address] Result Comment: 40-5 9 mg/dL, Acceptable >59 mg/dL, High: Negative risk factor for coronary heart disease <40 mg/dL, Low: Positive risk factor for coronary heart disease Performed By: #### 2 276-4, 64130-7 #### [facility] CLIA [id number] [address] [place] [address] [place] Cholesterol in LDL [Mass/Vol] 103 mg/dL High <100 [facility] Comment on above: Order Comment: Giovanni rosa Type: BLOOD SPECIMEN [facility] Address: [address] [place] [address] Result Comment: <100 mg/dL, Optimal 100-129 mg/dL, Near optimal/above optimal 130-159 mg/dL, Borderline high 160-189 mg/dL, High >189 mg/dL, Very high Secondary prevention optimal LDL Cholesterol levels are recommended to be < 70 mg/dL Performed By: #### 2 276-4, 23010-1 #### [facility] CLIA [id number] [address] [place] [address] [place] Cholesterol in LDL/Cholesterol in HDL [Mass ratio] 2.64 {ratio} High <2.54 [facility] Comment on above: Order Comment: Giovanni rosa Type: BLOOD SPECIMEN [facility] Address: [address] [place] [address] Result Comment: Refe rence: 1. National Cholesterol Education Program ATP III Guideline At-A-Glance Quick Desk Reference: National Heart, Lung, and Blood [place]. National Institutes of Health. 2001: NIH Publication No. 01-3305. 2. An International Atherosclerosis Society position paper: global recommendations for the management of dyslipidemia: executive summary, Atherosclerosis. 2014: 232(2):410-413. Performed By: #### 2 276-4, 44111-3 #### [facility] CLIA [id number] [address] [place] [address] [place] Cholesterol in VLDL [Mass/Vol] 16 mg/dL Normal <30 [facility] Comment on above: Order Comment: Giovanni rosa Type: BLOOD SPECIMEN [facility] Address: [address] [place] [address] Performed By: #### 2 276-4, 01411-3 #### [facility] CLIA [id number] [address] [place] [address] [place] Cholesterol non HDL [Mass/Vol] 119 mg/dL Normal <130 [facility] Comment on above: Order Comment: Speci men Type: BLOOD SPECIMEN [facility] Address: [address] [place] [address] Result Comment: <130 mg/dL, Optimal 130-159 mg/dL, Near optimal/above optimal 160-189 mg/dL, Borderline high 190-219 mg/dL, High >219 mg/dL, Very high Secondary prevention optimal non HDL Cholesterol levels are recommended to be <100 mg/dL Performed By: #### 2 276-4, 06774-9 #### [facility] CLIA [id number] [address] [place] [address] [place] Cholesterol.total/Ch olesterol in HDL [Mass ratio] 4.05 {ratio} Normal <5.10 [facility] Comment on above: Order Comment: Speci men Type: BLOOD SPECIMEN [facility]: [facility] Address: [address] [place] [address] Performed By: #### 2 276-4, 40986-0 #### [facility] CLIA [id number] [address] [place] [address] [place] FASTING TIME 12 hrs Normal [facility] Comment on above: Order Comment: Speci men Type: BLOOD SPECIMEN [facility]: [facility] Address: [address] [place] [address] Performed By: #### 2 276-4, 43357-0 #### [facility] CLIA [id number] [address] [place] [address] [place] Triglyceride [Mass/Vol] 79 mg/dL Normal <150 [facility] Comment on above: Order Comment: Speci men Type: BLOOD SPECIMEN [facility]: [facility] Address: [address] [place] [address] Result Comment: <150 mg/dL, Normal 150-199 mg/dL, Borderline high 200-499 mg/dL, High >499 mg/dL, Very high Performed By: #### 2 276-4, 56196-5 #### [facility] CLIA [id number] [address] [place] [address] [place] [address] [place] VITAMIN D 25 HYDROXYon 04-11 25-hydroxyvitamin D3 [Mass/Vol] 22.2 ng/mL Low 31.0 - 80.0 ng/mL [facility] Comment on above: Classification of 25 [place] Vitamin D status: Deficiency/Insufficiency: < or = 30 ng/ml. Sufficiency/Optimal Levels: 31-80 ng/mL Toxicity: > 100 ng/mL. Test performed by chemiluminescent immunoassay. Comprehensive metabolic 2000 panelon 01-13-2024 Albumin [Mass/Vol] 4.1 g/dL 3.9 - 4.9 g/dL [facility] ALP [Catalytic activity/Vol] 78 U/L 34 - 123 U/L [facility] ALT [Catalytic activity/Vol] 12 U/L 7 - 38 U/L [facility] Anion gap [Moles/Vol] 7 mmol/L Low 9 - 18 mmol/L [facility] AST [Catalytic activity/Vol] 10 U/L Low 13 - 35 U/L [facility] Bilirubin [Mass/Vol] 0.7 mg/dL 0.2 - 1.3 mg/dL [facility] Calcium [Mass/Vol] 9.5 mg/dL 8.5 - 10. 2 mg/dL [facility] Chloride [Moles/Vol] 108 mmol/L High 97 - 105 mmol/L [facility] CO2 [Moles/Vol] 25 mmol/L 22 - 30 mmol/L [facility] Creatinine [Mass/Vol] 0.82 mg/dL 0.58 - 0.96 mg/dL [facility] Estimated Glomerular Filtration Rate 97 mL/min/1.73m >=60 mL/min/1.73m [facility] Glucose [Mass/Vol] 100 mg/dL High 74 - 99 mg/dL [facility] Potassium [Moles/Vol] 4.0 mmol/L 3.7 - 5.1 mmol/L [facility] Protein [Mass/Vol] 7.2 g/dL 6.3 - 8.0 g/dL [facility] Sodium [Moles/Vol] 140 mmol/L 136 - 144 mmol/L [facility] Urea nitrogen [Mass/Vol] 10 mg/dL 7 - 21 mg/dL [facility] Chlamydia/GC KIRBY aptimaon GC BY NUC ACID Negative Normal Negative [facility] Comment on above: Result Comment: Perf ormed at: =G - [facility] [address] [place], [place] [id number] Offline Cutter: Miriam Lerner MD, Phone: [phone] Performed By: #### L 7000.1800 ####[facility] [address] [place], [place], [id number] CHLAMY,NUC ACID Negative Normal Negative [facility] Comment on above: Performed By: #### L 7000.1800 ####[facility] [address] [place], [place], [id number] Chlamydia trachomatis rRNA d etection by probe and target amplification methodon 02-03-2022 C. trachomatis rRNA KIRBY+probe Ql (Unsp spec) Negative Negative [facility] Work Phone: Laboratory - Microbiology an d Antimicrobial susceptibilityon 02-03-2022 N. gonorrhoeae DNA KIRBY+probe Ql (Unsp spec) Negative Negative [facility] Work Phone: Comment on above: Performed at: =G - L [facility] [place], [place] [id number] Director: Miriam Lerner MD, Phone: [phone] /Ham 12-04-2021 /CHELO [address] [place], [place] [address] OFFICE VISIT Date of Service: 12/04/21 MR#: [id number] Acct: [id number] Name: KARISSA PERDOMO Rep #: [id number] : 1990 Provider: CONG paulson Age/Sex: 31/F Location: [facility] Status: Signed Intake Intake Visit Reasons: Nipple pain Chief Complaint: nipple pain Accompanied by: Allergies No Known Allergies Allergy (Verified 12/09/21 15:48) : Yes Current gender identity: female [facility] Medical History (Updated 12/02/21 @ 09:05 by [...] Z39.1 12/09/21 1604 Date Sandy Martinez NP 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 Signature: Date (if applicable) CC: Normal [facility] Discharge Instructionon Discharge Instruction [facility] Medical Records Department [address] [place] [address] Instructions for Home/Discharge Instructions 12/02/21 0901 MR#: [id number] Acct: [id number] Name: KARISSA PERDOMO Rep #: [id number] : 1990 31 From: Mya Kim MD [...] CC: No Primary Care Physician Signed Normal [facility] Absolute lymphocyte counton 11-30-2021 Lymphocytes Auto (Unsp spec) [#/Vol] 1.49 10*3/uL 0.83-4.51 [facility] Work Phone: [phone] Basophil percentageon 2021 Basophils/100 WBC (Bld) 0.3 % 0-1 [facility] Work Phone: Eosinophils/100 WBC (Bld) 0.3 % 0-5 [facility] Work Phone: Neutrophils (Bld) [#/Vol] 8.2 10*3/uL 2.0-7.7 [facility] Work Phone: Neutrophils/100 WBC (Bld) 76.0 % 47-70 [facility] Work Phone: WBC (Bld) [#/Vol] 10.8 10*3/uL 4.4-11.0 [facility] Work Phone: [phone] Blood erythrocytes count (nu mber/volume)on 11-30-2021 RBC (Bld) [#/Vol] 3.53 10*6/uL 4.2-5.4 [facility] Work Phone: [phone] Blood hemoglobin measurement (mass/volume)on 11-30-2021 Hemoglobin (Bld) [Mass/Vol] 9.0 g/dL 12.0-15.0 [facility] Work Phone: [phone] Blood lymphocytes/100 leukoc yteson 11-30-2021 Lymphocytes/100 WBC (Bld) 13.8 % 19-41 [facility] Work Phone: Blood monocytes/100 leukocyt eson 11-30-2021 Monocytes/100 WBC (Bld) 9.0 % 0-10 [facility] Work Phone: [phone] Blood platelet mean volumeon 11-30-2021 Platelet mean volume (Bld) [Entitic vol] 10.3 fL 6.2-12.0 [facility] Work Phone: [phone] CBC W/Diff, Automatedon 11-05 Absolute Lymph 1.49 X10 3/uL Normal 0.83-4.51 [facility] Comment on above: Performed By: #### L 100.0100, BTS ####[facility] [address] [place], [address] Absolute Neut 8.2 X10 3/uL High 2.0-7.7 [facility] Comment on above: Performed By: #### L 100.0100, BTS ####[facility] [address] [place], [address] Basophils/100 WBC (Bld) 0.3 % Normal 0-1 [facility] Comment on above: Performed By: #### L 100.0100, BTS ####[facility] [address] [place], [address] Eosinophils/100 WBC (Bld) 0.3 % Normal 0-5 [facility] Comment on above: Performed By: #### L 100.0100, BTS ####[facility] [address] [place], [address] Erythrocyte distribution width (RBC) [Ratio] 14.7 % High 11.6-14.6 [facility] Comment on above: Performed By: #### L 100.0100, BTS ####[facility] [address] [place], [address] Hematocrit (Bld) [Volume fraction] 27.5 % Low 37-47 [facility] Comment on above: Performed By: #### L 100.0100, BTS ####[facility] [address] [place], [address] Hemoglobin (Bld) [Mass/Vol] 9.0 g/dL Low 12.0-15.0 [facility] Comment on above: Performed By: #### L 100.0100, BTS ####[facility] [address] [place], [address] IG% 0.600 Normal 0.0-0.9 [facility] Comment on above: Result Comment: IG% - Immature Granulocytes (promyelocytes, myelocytes and metamyelocytes) > 1% indicates that a LEFT SHIFT is Present. Performed By: #### L 100.0100, BTS ####[facility] [address] [place], [address] Lymphocytes/100 WBC (Bld) 13.8 % Low 19-41 [facility] Comment on above: Performed By: #### L 100.0100, BTS ####[facility] [address] [place], [address] MCH (RBC) [Entitic mass] 25.5 pg Low 27.0-32.0 [facility] Comment on above: Performed By: #### L 100.0100, BTS ####[facility] [address] [place], [address] MCHC (RBC) [Mass/Vol] 32.7 g/dL Normal 32-36 [facility] Comment on above: Performed By: #### L 100.0100, BTS ####[facility] [address] [place], [address] MCV (RBC) [Entitic vol] 77.9 fL Low 81-99 [facility] Comment on above: Performed By: #### L 100.0100, BTS ####[facility] [address] [place], [address] Monocytes/100 WBC (Bld) 9.0 % Normal 0-10 [facility] Comment on above: Performed By: #### L 100.0100, BTS ####[facility] [address] [place], [address] Neutrophils/100 WBC (Bld) 76.0 % High 47-70 [facility] Comment on above: Performed By: #### L 100.0100, BTS ####[facility] [address] [place], [address] Nucleated RBC (Bld) [#/Vol] 0 10*3/uL Normal 0-5 [facility] Comment on above: Performed By: #### L 100.0100, BTS ####[facility] [address] [place], [address] Platelet mean volume (Bld) [Entitic vol] 10.3 fL Normal 6.2-12.0 [facility] Comment on above: Performed By: #### L 100.0100, BTS ####[facility] [address] [place], [address] Platelets (Bld) [#/Vol] 335 10*3/uL Normal 150-450 [facility] Comment on above: Performed By: #### L 100.0100, BTS ####[facility] [address] [place], [address] RBC (Bld) [#/Vol] 3.53 10*6/uL Low 4.2-5.4 [facility] Comment on above: Performed By: #### L 100.0100, BTS ####[facility] [address] [place], [place], [address] RDW SD 41.5 fl Normal 35.1-43.9 [facility] Comment on above: Performed By: #### L 100.0100, BTS ####[facility] [address] [place], [place], [address] WBC (Bld) [#/Vol] 10.8 10*3/uL Normal 4.4-11.0 [facility] Comment on above: Performed By: #### L 100.0100, BTS ####[facility] [address] [place], [place], [id number] COVID 19 AG RAPID (RN COLLEC T)on [...] RAPID METHOD BinaxNow COVID19 Ag Card Normal [facility] Comment on above: Performed By: #### M 100.505 #### [facility] Laboratory [address] [facility] [address] [place], [place], [id number] Determination of erythrocyte mean corpuscular volume (MCV)on 11-30-2021 MCV (RBC) [Entitic vol] 77.9 fL 81-99 [facility] Work Phone: Hematocrit Auto (Bld) [Volum e fraction]on 11-30-2021 Hematocrit (Bld) [Volume fraction] 27.5 % 37-47 [facility] Work Phone: Laboratory - Hematology and Cell countson 11-30-2021 Erythrocyte distribution width (RBC) [Entitic vol] 41.5 fL 35.1-43.9 [facility] Work Phone: Erythrocyte distribution width (RBC) [Ratio] 14.7 % 11.6-14.6 [facility] Work Phone: Immature granulocytes/100 WBC (Bld) 0.600 % 0.0-0.9 [facility] Work Phone: Comment on above: IG% - Immature Granu locytes (promyelocytes, myelocytes and metamyelocytes) > 1% indicates that a LEFT SHIFT is Present. MCH (RBC) [Entitic mass] 25.5 pg 27.0-32.0 [facility] Work Phone: Nucleated RBC/100 WBC (Bld) [Ratio] 0 % 0-5 [facility] Work Phone: MCHC Auto (RBC) [Mass/Vol]on 11-30-2021 MCHC (RBC) [Mass/Vol] 32.7 g/dL 32-36 [facility] Work Phone: No Panel Informationon 11-30 SARS-CoV-2 Antigen (Rapid) [facility] Work Phone: Operative Reporton 2 Operative Report [facility] Medical Records Department [address] [place] [address] Operative Report 11/30/21 1032 MR#: [id number] Acct: [id number] Name: KARISSA PERDOMO Rep #: [id number] : 1990 31 From: Zaheer Quinn MD PCP: Care Physician,No Primary Status:ADM IN Location: [place] [address]1 Maternal Data Information Final JACQUE: 11/26/21 Gestational [...] MD; No Primary Care Physician Signed Normal [facility] Platelets bldon 11-30-2021 Platelets (Bld) [#/Vol] 335 10*3/uL 150-450 [facility] Work Phone: Type AND Screenon 11-30-2021 Ab SCREEN GEL Negative Normal [facility] Comment on above: Order Comment: Labor Performed By: #### M 100.505 #### [facility] [address] [place], [place], [address] ABO and Rh group Nom (Bld) Blood group B Rh(D) positive Normal [facility] Comment on above: Order Comment: Labor Performed By: #### M 100.505 #### [facility] [address] [place], [place], [id number] Rule out Beta Strep (Grp. B) on 11-02-2021 MARY Group B Beta Streptococcus is not isolated. Normal [facility] Comment on above: Performed By: #### M 100.505 #### [facility] [address] [place], [place], [phone] No Panel Informationon 10-31 Group B Streptococcus Culture Group B Beta Streptococcus is not isolated. [facility] Work Phone: Absolute lymphocyte counton 10-17-2021 Lymphocytes Auto (Unsp spec) [#/Vol] 1.66 10*3/uL 0.83-4.51 [facility] Work Phone: Basophil percentageon 2021 Basophils/100 WBC (Bld) 0.5 % 0-1 [facility] Work Phone: Bilirubin [Mass/Vol] 0.50 mg/dL 0.20-1.00 [facility] Work Phone: [phone] Comment on above: For patients on eltr ombopag therapy, use of Dimension Rake TBIL is not recommended. Chloride [Moles/Vol] 109 mmol/L 98-107 [facility] Work Phone: [phone] Eosinophils/100 WBC (Bld) 0.7 % 0-5 [facility] Work Phone: Glucose [Mass/Vol] 86 mg/dL 74-106 [facility] Work Phone: Neutrophils (Bld) [#/Vol] 5.0 10*3/uL 2.0-7.7 [facility] Work Phone: [phone] Neutrophils/100 WBC (Bld) 66.2 % 47-70 [facility] Work Phone: [phone] Potassium [Moles/Vol] 3.8 mmol/L 3.5-5.1 [facility] Work Phone: [phone] Protein [Mass/Vol] 6.5 g/dL 6.4-8.2 [facility] Work Phone: Sodium [Moles/Vol] 138 mmol/L 136-145 [facility] Work Phone: WBC (Bld) [#/Vol] 7.5 10*3/uL 4.4-11.0 [facility] Work Phone: [phone] Blood erythrocytes count (nu mber/volume)on 10-17-2021 RBC (Bld) [#/Vol] 3.18 10*6/uL 4.2-5.4 [facility] Work Phone: [phone] Blood hemoglobin measurement (mass/volume)on 10-17-2021 Hemoglobin (Bld) [Mass/Vol] 9.1 g/dL 12.0-15.0 [facility] Work Phone: Blood lymphocytes/100 leukoc yteson 10-17-2021 Lymphocytes/100 WBC (Bld) 22.2 % 19-41 [facility] Work Phone: Blood monocytes/100 leukocyt eson 10-17-2021 Monocytes/100 WBC (Bld) 9.5 % 0-10 [facility] Work Phone: Blood platelet mean volumeon 10-17-2021 Platelet mean volume (Bld) [Entitic vol] 9.8 fL 6.2-12.0 [facility] Work Phone: [phone] CBC W/Diff, Automatedon 10-04 Absolute Lymph 1.66 X10 3/uL Normal 0.83-4.51 [facility] Comment on above: Performed By: #### M 100.505 #### [facility] [address] [place], [address] Absolute Neut 5.0 X10 3/uL Normal 2.0-7.7 [facility] Comment on above: Performed By: #### M 100.505 #### [facility] [address] [place], [address] Basophils/100 WBC (Bld) 0.5 % Normal 0-1 [facility] Comment on above: Performed By: #### M 100.505 #### [facility] [address] [place], [address] Eosinophils/100 WBC (Bld) 0.7 % Normal 0-5 [facility] Comment on above: Performed By: #### M 100.505 #### [facility] [address] [place], [address] Erythrocyte distribution width (RBC) [Ratio] 12.8 % Normal 11.6-14.6 [facility] Comment on above: Performed By: #### M 100.505 #### [facility] [address] [place], [address] Hematocrit (Bld) [Volume fraction] 27.7 % Low 37-47 [facility] Comment on above: Performed By: #### M 100.505 #### [facility] [address] [place], [address] Hemoglobin (Bld) [Mass/Vol] 9.1 g/dL Low 12.0-15.0 [facility] Comment on above: Performed By: #### M 100.505 #### [facility] [address] [place], [address] IG% 0.900 Normal 0.0-0.9 [facility] Comment on above: Result Comment: IG% - Immature Granulocytes (promyelocytes, myelocytes and metamyelocytes) > 1% indicates that a LEFT SHIFT is Present. Performed By: #### M 100.505 #### [facility] [address] [place], [address] Lymphocytes/100 WBC (Bld) 22.2 % Normal 19-41 [facility] Comment on above: Performed By: #### M 100.505 #### [facility] [address] [place], [address] MCH (RBC) [Entitic mass] 28.6 pg Normal 27.0-32.0 [facility] Comment on above: Performed By: #### M 100.505 #### [facility] [address] [place], [address] MCHC (RBC) [Mass/Vol] 32.9 g/dL Normal 32-36 [facility] Comment on above: Performed By: #### M 100.505 #### [facility] [address] [place], [address] MCV (RBC) [Entitic vol] 87.1 fL Normal 81-99 [facility] Comment on above: Performed By: #### M 100.505 #### [facility] [address] [place], [address] Monocytes/100 WBC (Bld) 9.5 % Normal 0-10 [facility] Comment on above: Performed By: #### M 100.505 #### [facility] [address] [place], [address] Neutrophils/100 WBC (Bld) 66.2 % Normal 47-70 [facility] Comment on above: Performed By: #### M 100.505 #### [facility] [address] [place], [address] Nucleated RBC (Bld) [#/Vol] 0 10*3/uL Normal 0-5 [facility] Comment on above: Performed By: #### M 100.505 #### [facility] [address] [place], [address] Platelet mean volume (Bld) [Entitic vol] 9.8 fL Normal 6.2-12.0 [facility] Comment on above: Performed By: #### M 100.505 #### [facility] [address] [place], [address] Platelets (Bld) [#/Vol] 292 10*3/uL Normal 150-450 [facility] Comment on above: Performed By: #### M 100.505 #### [facility] [address] [place], [address] RBC (Bld) [#/Vol] 3.18 10*6/uL Low 4.2-5.4 [facility] Comment on above: Performed By: #### M 100.505 #### [facility] [address] [place], [address] RDW SD 40.9 fl Normal 35.1-43.9 [facility] Comment on above: Performed By: #### M 100.505 #### [facility] [address] [place], [address] WBC (Bld) [#/Vol] 7.5 10*3/uL Normal 4.4-11.0 [facility] Comment on above: Performed By: #### M 100.505 #### [facility] [address] [place], [address] Comprehensive Metabolic Prof [facility] 10-17-2021 Albumin [Mass/Vol] 2.7 g/dL Low 3.2-5.0 [facility] Comment on above: Performed By: #### M 100.505 #### [facility] [address] [place], [address] Albumin/Globulin [Mass ratio] 0.7 {ratio} Low 0.9-2.4 [facility] Comment on above: Performed By: #### M 100.505 #### [facility] [address] [place], [address] ALK P 104 U/L Normal 45-117 [facility] Comment on above: Performed By: #### M 100.505 #### [facility] [address] [place], [address] ALT [Catalytic activity/Vol] 26 U/L Normal 13-56 [facility] Comment on above: Performed By: #### M 100.505 #### [facility] [address] [place], [address] AST [Catalytic activity/Vol] 16 U/L Normal 15-37 [facility] Comment on above: Performed By: #### M 100.505 #### [facility] [address] [place], [address] Bilirubin [Mass/Vol] 0.50 mg/dL Normal 0.20-1.00 [facility] Comment on above: Result Comment: For patients on eltrombopag therapy, use of Dimension Rake TBIL is not recommended. Performed By: #### M 100.505 #### [facility] [address] [place], [address] BUN/CRE 7.8 RATIO Low 10-20 [facility] Comment on above: Performed By: #### M 100.505 #### [facility] [address] [place], [address] CA,Total 8.6 mg/dL Normal 8.5-10.1 [facility] Comment on above: Performed By: #### M 100.505 #### [facility] [address] [place], [address] Chloride [Moles/Vol] 109 mmol/L High 98-107 [facility] Comment on above: Performed By: #### M 100.505 #### [facility] [address] [place], [address] CO2 [Moles/Vol] 22.0 mmol/L Normal 21.0-32.0 [facility] Comment on above: Performed By: #### M 100.505 #### [facility] [address] [place], [address] Creatinine [Mass/Vol] 0.64 mg/dL Normal 0.55-1.02 [facility] Comment on above: Result Comment: The validity of the calculated GFR GFRAA in patients over 70 years has not been determined. Clinical correlation is essential. Performed By: #### M 100.505 #### [facility] [address] [place], [address] EST GFR - AA 139 mL/min Normal >60 [facility] Comment on above: Result Comment: Afri can [place]ian GFR Calc Performed By: #### M 100.505 #### [facility] [address] [place], [address] GAP 7 Normal 5-15 [facility] Comment on above: Performed By: #### M 100.505 #### [facility] [address] [place], [address] GFR/1.73 sq M.predicted among non-blacks MDRD (S/P/Bld) [Vol rate/Area] 115 mL/min/{1.73_m2} Normal >60 [facility] Comment on above: Result Comment: Non- GFR Calc Performed By: #### M 100.505 #### [facility] [address] [place], [address] Globulin (S) [Mass/Vol] 3.8 g/dL Normal 2.2-4.2 [facility] Comment on above: Performed By: #### M 100.505 #### [facility] [address] [place], [address] Glucose [Mass/Vol] 86 mg/dL Normal 74-106 [facility] Comment on above: Performed By: #### M 100.505 #### [facility] [address] [place], [address] Potassium [Moles/Vol] 3.8 mmol/L Normal 3.5-5.1 [facility] Comment on above: Performed By: #### M 100.505 #### [facility] [address] [place], [place], [address] Sodium [Moles/Vol] 138 mmol/L Normal 136-145 [facility] Comment on above: Performed By: #### M 100.505 #### [facility] [address] [place], [place], [address] T PROT 6.5 g/dL Normal 6.4-8.2 [facility] Comment on above: Performed By: #### M 100.505 #### [facility] [address] [place], [place], [address] Urea nitrogen [Mass/Vol] 5 mg/dL Low 7-18 [facility] Comment on above: Performed By: #### M 100.505 #### [facility] [address] [place], [place], [address] Determination of erythrocyte mean corpuscular volume (MCV)on 10-17-2021 MCV (RBC) [Entitic vol] 87.1 fL 81-99 [facility] Work Phone: Gastroenterology Visit Repor ton 10-17-2021 Gastroenterology Visit Report 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 Tyra Esqueda MD Normal [facility] Hematocrit Auto (Bld) [Volum e fraction]on 10-17-2021 Hematocrit (Bld) [Volume fraction] 27.7 % 37-47 [facility] Work Phone: Laboratory - Chemistry and C hemistry - challengeon 10-17-2021 ALP [Catalytic activity/Vol] 104 U/L 45-117 [facility] Work Phone: ALT [Catalytic activity/Vol] 26 U/L 13-56 [facility] Work Phone: CO2 [Moles/Vol] 22.0 mmol/L 21.0-32.0 [facility] Work Phone: Globulin (S) [Mass/Vol] 3.8 g/dL 2.2-4.2 [facility] Work Phone: Urea nitrogen/Creatinine [Mass ratio] 7.8 mg/mg 10-20 [facility] Work Phone: Laboratory - Hematology and Cell countson 10-17-2021 Erythrocyte distribution width (RBC) [Entitic vol] 40.9 fL 35.1-43.9 [facility] Work Phone: Erythrocyte distribution width (RBC) [Ratio] 12.8 % 11.6-14.6 [facility] Work Phone: Immature granulocytes/100 WBC (Bld) 0.900 % 0.0-0.9 [facility] Work Phone: Comment on above: IG% - Immature Granu locytes (promyelocytes, myelocytes and metamyelocytes) > 1% indicates that a LEFT SHIFT is Present. MCH (RBC) [Entitic mass] 28.6 pg 27.0-32.0 [facility] Work Phone: Nucleated RBC/100 WBC (Bld) [Ratio] 0 % 0-5 [facility] Work Phone: MCHC Auto (RBC) [Mass/Vol]on 10-17-2021 MCHC (RBC) [Mass/Vol] 32.9 g/dL 32-36 [facility] Work Phone: No Panel Informationon 10-17 Estimated GFR (MDRD) Amer 139 mL/min >60 [facility] Work Phone: Comment on above: GFR Calc Estimated GFR (MDRD) Non-Af Amer 115 mL/min >60 [facility] Work Phone: Comment on above: Non- GFR Calc Platelets bldon 10-17-2021 Platelets (Bld) [#/Vol] 292 10*3/uL 150-450 [facility] Work Phone: Serum or plasma albumin carmen urement (mass/volume)on 10-17-2021 Albumin [Mass/Vol] 2.7 g/dL 3.2-5.0 [facility] Work Phone: Serum or plasma albumin/glob ulin mass ratioon 10-17-2021 Albumin/Globulin [Mass ratio] 0.7 {ratio} 0.9-2.4 [facility] Work Phone: Serum or plasma calcium carmen urement (mass/volume)on 10-17-2021 Calcium [Mass/Vol] 8.6 mg/dL 8.5-10.1 [facility] Work Phone: Serum or plasma creatinine m easurement (mass/volume)on 10-17-2021 Creatinine [Mass/Vol] 0.64 mg/dL 0.55-1.02 [facility] Work Phone: Comment on above: The validity of the calculated GFR & GFRAA in patients over 70 years has not been determined. Clinical correlation is essential. Serum or plasma urea nitroge n measurement (mass/volume)on 10-17-2021 Urea nitrogen [Mass/Vol] 5 mg/dL 7-18 [facility] Work Phone: Thin prep Papanicolaou smear with manual screeningon 10-17-2021 Thin prep Papanicolaou smear with manual screening 16 U/L 15-37 [facility] Work Phone: Thin prep Papanicolaou smear with manual screening 7 5-15 [facility] Work Phone: Gastroenterology Visit Repor ton 09-09-2021 Gastroenterology Visit Report [facility] Gastroenterology [address] [place] [address] OFFICE VISIT Date of Service: 09/09/21 MR#: [id number] Acct: [id number] Name: KARISSA PERDOMO Rep #: [id number] : 1990 Provider: Vince Burnette DO Age/Sex: 31/F Location: [facility] Status: Signed Intake Intake Visit Reasons: 3 WK FU Allergies No Known Allergies Allergy (Verified 08/14/21 22:57) [facility] Medical History (Updated 08/23/21 @ 00:01 by [...] hemoglobin 9.2. Recommend discussing iron start with journalism internship due to PPI inhibition of iron absorption. [...] Affect: normal affect Quality Reporting Tobacco Screening ([facility] 138) Smoking Status: Never smoker Assessment and [...] Beulahigner Signature: Date (if applicable) CC: Normal [facility] Progress Noteon 08-25-2021 [place] Authentication Interface Message Text We had the pleasure of seeing Karissa Perdomo in the Heart Clinic at the [facility] on 08/25/2021. Mrs. 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 Her is a physician in [employer]. Today's echocardiogram demonstrated: SUMMARY: 1. Normal echocardiogram. 2. This study is limited in evaluating minor valve abnormalities, septal defects, partial anomalous pulmonary venous connection, and aortic arch abnormalities. 3. The above findings, including the limitations, were discussed with the patient. - REASON FOR EXAM: Absent atrial septum. - STUDY AND PROCEDURE DATA: Procedure Description: Keegan Bartlett ([id number]) . Study status: Routine. Location: lab. Procedure: [...] into the left atrium. There is a [id number] shunt. Left atrium - The atrium is [...] Cardiology fol (more content not included)... Normal [facility] CBC W/Diff, Automatedon 11-2 0-2020 Absolute Lymph 1.58 X10 3/uL Normal 0.83-4.51 [facility] Comment on above: Performed By: #### L 100.0100 ####[facility] [address] [facility] [place], [address] Absolute Neut 6.4 X10 3/uL Normal 2.0-7.7 [facility] Comment on above: Performed By: #### L 100.0100 ####[facility] [address] [facility] [place], [address] Basophils/100 WBC (Bld) 0.5 % Normal 0-1 [facility] Comment on above: Performed By: #### L 100.0100 ####[facility] [facility] [address] [place], [address] Eosinophils/100 WBC (Bld) 0.7 % Normal 0-5 [facility] Comment on above: Performed By: #### L 100.0100 ####[facility] [address] [place], [address] Erythrocyte distribution width (RBC) [Ratio] 11.9 % Normal 11.6-14.6 [facility] Comment on above: Performed By: #### L 100.0100 ####[facility] [address] [place], [address] Hematocrit (Bld) [Volume fraction] 29.1 % Low 37-47 [facility] Comment on above: Performed By: #### L 100.0100 ####[facility] [address] [place], [address] Hemoglobin (Bld) [Mass/Vol] 10.1 g/dL Low 12.0-15.0 [facility] Comment on above: Performed By: #### L 100.0100 ####[facility] [address] [place], [address] IG% 0.600 Normal 0.0-0.9 [facility] Comment on above: Result Comment: IG% - Immature Granulocytes (promyelocytes, myelocytes and metamyelocytes) > 1% indicates that a LEFT SHIFT is Present. Performed By: #### L 100.0100 ####[facility] [address] [place], [address] Lymphocytes/100 WBC (Bld) 17.8 % Low 19-41 [facility] Comment on above: Performed By: #### L 100.0100 ####[facility] [address] [place], [address] MCH (RBC) [Entitic mass] 31.7 pg Normal 27.0-32.0 [facility] Comment on above: Performed By: #### L 100.0100 ####[facility] [address] [place], [address] MCHC (RBC) [Mass/Vol] 34.7 g/dL Normal 32-36 [facility] Comment on above: Performed By: #### L 100.0100 ####[facility] [address] [place], [address] MCV (RBC) [Entitic vol] 91.2 fL Normal 81-99 [facility] Comment on above: Performed By: #### L 100.0100 ####[facility] [address] [place], [address] Monocytes/100 WBC (Bld) 8.9 % Normal 0-10 [facility] Comment on above: Performed By: #### L 100.0100 ####[facility] [address] [place], [address] Neutrophils/100 WBC (Bld) 71.5 % High 47-70 [facility] Comment on above: Performed By: #### L 100.0100 ####[facility] [address] [place], [address] Nucleated RBC (Bld) [#/Vol] 0 10*3/uL Normal 0-5 [facility] Comment on above: Performed By: #### L 100.0100 ####[facility] [address] [place], [address] Platelet mean volume (Bld) [Entitic vol] 9.5 fL Normal 6.2-12.0 [facility] Comment on above: Performed By: #### L 100.0100 ####[facility] [address] [place], [address] Platelets (Bld) [#/Vol] 302 10*3/uL Normal 150-450 [facility] Comment on above: Performed By: #### L 100.0100 ####[facility] [address] [place], [address] RBC (Bld) [#/Vol] 3.19 10*6/uL Low 4.2-5.4 [facility] Comment on above: Performed By: #### L 100.0100 ####[facility] [address] [place], [address] RDW SD 39.9 fl Normal 35.1-43.9 [facility] Comment on above: Performed By: #### L 100.0100 ####[facility] [address] [place], [address] WBC (Bld) [#/Vol] 8.9 10*3/uL Normal 4.4-11.0 [facility] Comment on above: Performed By: #### L 100.0100 ####[facility] [address] [place], [address] Gastroenterology Visit Repor ton 08-19-2021 Gastroenterology Visit Report [facility]enterology [address] [place] [address] OFFICE VISIT Date of Service: 08/19/21 MR#: [id number] Acct: [id number] Name: KARISSA PERDOMO Rep #: [id number] : 1990 Provider: Vince uBrnette DO Age/Sex: 31/F Location: [facility] Status: Signed Intake Intake Visit Reasons: possible ulcer Allergies No Known Allergies Allergy (Verified 08/14/21 22:57) [facility] Medical History (Updated 08/19/21 @ 11:03 by [...] Appearance: average body habitus and well nourished [facility] Head: normal to inspection Ears: hearing grossly [...] Affect: normal affect Quality Reporting Tobacco Screening ([facility] 138) Smoking Status: Never smoker Assessment and [...] 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 Normal [facility] CBC W/Diff, Automatedon 08-04 Absolute Lymph 1.74 X10 3/uL Normal 0.83-4.51 [facility] Comment on above: Performed By: #### L 500.4050, L100.0100 #### [facility] [address] [place], [address] Absolute Neut 4.2 X10 3/uL Normal 2.0-7.7 [facility] Comment on above: Performed By: #### L 500.4050, L100.0100 #### [facility] [address] [place], [address] Basophils/100 WBC (Bld) 0.4 % Normal 0-1 [facility] Comment on above: Performed By: #### L 500.4050, L100.0100 #### [facility] [address] [place], [address] Eosinophils/100 WBC (Bld) 0.9 % Normal 0-5 [facility] Comment on above: Performed By: #### L 500.4050, L100.0100 #### [facility] [address] [place], [address] Erythrocyte distribution width (RBC) [Ratio] 11.8 % Normal 11.6-14.6 [facility] Comment on above: Performed By: #### L 500.4050, L100.0100 #### [facility] [address] [place], [address] Hematocrit (Bld) [Volume fraction] 26.6 % Low 37-47 [facility] Comment on above: Performed By: #### L 500.4050, L100.0100 #### [facility] [address] [place], [address] Hemoglobin (Bld) [Mass/Vol] 9.2 g/dL Low 12.0-15.0 [facility] Comment on above: Performed By: #### L 500.4050, L100.0100 #### [facility] [address] [place], [address] IG% 1.200 High 0.0-0.9 [facility] Comment on above: Result Comment: IG% - Immature Granulocytes (promyelocytes, myelocytes and metamyelocytes) > 1% indicates that a LEFT SHIFT is Present. Performed By: #### L 500.4050, L100.0100 #### [facility] [address] [place], [address] Lymphocytes/100 WBC (Bld) 25.4 % Normal 19-41 [facility] Comment on above: Performed By: #### L 500.4050, L100.0100 #### [facility] [address] [place], [address] MCH (RBC) [Entitic mass] 31.2 pg Normal 27.0-32.0 [facility] Comment on above: Performed By: #### L 500.4050, L100.0100 #### [facility] [address] [place], [address] MCHC (RBC) [Mass/Vol] 34.6 g/dL Normal 32-36 [facility] Comment on above: Performed By: #### L 500.4050, L100.0100 #### [facility] [address] [place], [address] MCV (RBC) [Entitic vol] 90.2 fL Normal 81-99 [facility] Comment on above: Performed By: #### L 500.4050, L100.0100 #### [facility] [address] [place], [address] Monocytes/100 WBC (Bld) 11.4 % High 0-10 [facility] Comment on above: Performed By: #### L 500.4050, L100.0100 #### [facility] [address] [place], [address] Neutrophils/100 WBC (Bld) 60.7 % Normal 47-70 [facility] Comment on above: Performed By: #### L 500.4050, L100.0100 #### [facility] [address] [place], [address] Nucleated RBC (Bld) [#/Vol] 0 10*3/uL Normal 0-5 [facility] Comment on above: Performed By: #### L 500.4050, L100.0100 #### [facility] [address] [place], [address] Platelet mean volume (Bld) [Entitic vol] 9.6 fL Normal 6.2-12.0 [facility] Comment on above: Performed By: #### L 500.4050, L100.0100 #### [facility] [address] [place], [address] Platelets (Bld) [#/Vol] 283 10*3/uL Normal 150-450 [facility] Comment on above: Performed By: #### L 500.4050, L100.0100 #### [facility] [address] [place], [address] RBC (Bld) [#/Vol] 2.95 10*6/uL Low 4.2-5.4 [facility] Comment on above: Performed By: #### L 500.4050, L100.0100 #### [facility] [address] [place], [address] RDW SD 38.4 fl Normal 35.1-43.9 [facility] Comment on above: Performed By: #### L 500.4050, L100.0100 #### [facility] [address] [place], [address] WBC (Bld) [#/Vol] 6.9 10*3/uL Normal 4.4-11.0 [facility] Comment on above: Performed By: #### L 500.4050, L100.0100 #### [facility] [address] [place], [address] Comprehensive Metabolic Prof ilon 08-15-2021 Albumin [Mass/Vol] 2.7 g/dL Low 3.2-5.0 [facility] Comment on above: Performed By: #### L 500.4050, L100.0100 #### [facility] [address] [place], [address] Albumin/Globulin [Mass ratio] 0.7 {ratio} Low 0.9-2.4 [facility] Comment on above: Performed By: #### L 500.4050, L100.0100 #### [facility] [address] [place], [address] ALK P 66 U/L Normal 45-117 [facility] Comment on above: Performed By: #### L 500.4050, L100.0100 #### [facility] [address] [place], [address] ALT [Catalytic activity/Vol] 46 U/L Normal 13-56 [facility] Comment on above: Performed By: #### L 500.4050, L100.0100 #### [facility] [address] [place], [address] AST [Catalytic activity/Vol] 23 U/L Normal 15-37 [facility] Comment on above: Performed By: #### L 500.4050, L100.0100 #### [facility] [address] [place], [address] Bilirubin [Mass/Vol] 0.30 mg/dL Normal 0.20-1.00 [facility] Comment on above: Result Comment: For patients on eltrombopag therapy, use of Dimension Rake TBIL is not recommended. Performed By: #### L 500.4050, L100.0100 #### [facility] [address] [place], [address] BUN/CRE 12.3 RATIO Normal 10-20 [facility] Comment on above: Performed By: #### L 500.4050, L100.0100 #### [facility] [address] [place], [address] CA,Total 8.6 mg/dL Normal 8.5-10.1 [facility] Comment on above: Performed By: #### L 500.4050, L100.0100 #### [facility] [address] [place], [address] Chloride [Moles/Vol] 107 mmol/L Normal 98-107 [facility] Comment on above: Performed By: #### L 500.4050, L100.0100 #### [facility] [address] [place], [address] CO2 [Moles/Vol] 24.0 mmol/L Normal 21.0-32.0 [facility] Comment on above: Performed By: #### L 500.4050, L100.0100 #### [facility] [address] [place], [address] Creatinine [Mass/Vol] 0.65 mg/dL Normal 0.55-1.02 [facility] Comment on above: Result Comment: The validity of the calculated GFR GFRAA in patients over 70 years has not been determined. Clinical correlation is essential. Performed By: #### L 500.4050, L100.0100 #### [facility] [address] [place], [address] ECRCL 126.50 ml/min Normal [facility] Comment on above: Performed By: #### L 500.4050, L100.0100 #### [facility] [address] [place], [address] EST GFR - AA 136 mL/min Normal >60 [facility] Comment on above: Result Comment: Afri can [place]ian GFR Calc Performed By: #### L 500.4050, L100.0100 #### [facility] [address] [place], [address] GAP 8 Normal 5-15 [facility] Comment on above: Performed By: #### L 500.4050, L100.0100 #### [facility] [address] [place], [address] GFR/1.73 sq M.predicted among non-blacks MDRD (S/P/Bld) [Vol rate/Area] 112 mL/min/{1.73_m2} Normal >60 [facility] Comment on above: Result Comment: Non- GFR Calc Performed By: #### L 500.4050, L100.0100 #### [facility] [address] [place], [address] Globulin (S) [Mass/Vol] 3.7 g/dL Normal 2.2-4.2 [facility] Comment on above: Performed By: #### L 500.4050, L100.0100 #### [facility] [address] [place], [address] Glucose [Mass/Vol] 87 mg/dL Normal 74-106 [facility] Comment on above: Result Comment: Maday mcdaniel note revised GLUCOSE reference range effective 2017. Performed By: #### L 500.4050, L100.0100 #### [facility] [address] [place], [address] Potassium [Moles/Vol] 3.5 mmol/L Normal 3.5-5.1 [facility] Comment on above: Performed By: #### L 500.4050, L100.0100 #### [facility] [address] [place], [address] Sodium [Moles/Vol] 139 mmol/L Normal 136-145 [facility] Comment on above: Performed By: #### L 500.4050, L100.0100 #### [facility] [address] [place], [address] T PROT 6.4 g/dL Normal 6.4-8.2 [facility] Comment on above: Performed By: #### L 500.4050, L100.0100 #### [facility] [address] [place], [address] Urea nitrogen [Mass/Vol] 8 mg/dL Normal 7-18 [facility] Comment on above: Performed By: #### L 500.4050, L100.0100 #### [facility] [address] [place], [address] Emergency Department Summary on 08-15-2021 Emergency Department Summary [facility] Medical Records Department [address] [place] [address] Emergency Department Summary 08/14/21 MR#: [id number] Acct: [id number] Name: KARISSA PERDOMO Rep #: [id number] : 1990 31 From: Shawn Jackson MD [...] No known drug allergies No recent surgeries [facility] Medical History (Updated 08/15/21 @ 00:28 by [...] change con (more content not included)... Normal [facility] CBC-Complete Blood Cnt No Di ffon 08-12-2021 Erythrocyte distribution width (RBC) [Ratio] 11.8 % Normal 11.6-14.6 [facility] Comment on above: Performed By: #### L 501.0250, L100.0500 ####[facility] [address] [place], [address] Hematocrit (Bld) [Volume fraction] 28.7 % Low 37-47 [facility] Comment on above: Performed By: #### L 501.0250, L100.0500 ####[facility] [address] [place], [address] Hemoglobin (Bld) [Mass/Vol] 9.9 g/dL Low 12.0-15.0 [facility] Comment on above: Performed By: #### L 501.0250, L100.0500 ####[facility] [address] [place], [address] MCH (RBC) [Entitic mass] 30.9 pg Normal 27.0-32.0 [facility] Comment on above: Performed By: #### L 501.0250, L100.0500 ####[facility] [address] [place], [address] MCHC (RBC) [Mass/Vol] 34.5 g/dL Normal 32-36 [facility] Comment on above: Performed By: #### L 501.0250, L100.0500 ####[facility] [address] [place], [address] MCV (RBC) [Entitic vol] 89.7 fL Normal 81-99 [facility] Comment on above: Performed By: #### L 501.0250, L100.0500 ####[facility] [address] [place], [address] Platelet mean volume (Bld) [Entitic vol] 9.6 fL Normal 6.2-12.0 [facility] Comment on above: Performed By: #### L 501.0250, L100.0500 ####[facility] [address] [place], [address] Platelets (Bld) [#/Vol] 297 10*3/uL Normal 150-450 [facility] Comment on above: Performed By: #### L 501.0250, L100.0500 ####[facility] [address] [place], [address] RBC (Bld) [#/Vol] 3.20 10*6/uL Low 4.2-5.4 [facility] Comment on above: Performed By: #### L 501.0250, L100.0500 ####[facility] [address] [place], [address] RDW SD 38.0 fl Normal 35.1-43.9 [facility] Comment on above: Performed By: #### L 501.0250, L100.0500 ####[facility] [address] [place], [address] WBC (Bld) [#/Vol] 7.3 10*3/uL Normal 4.4-11.0 [facility] Comment on above: Performed By: #### L 501.0250, L100.0500 ####[facility] [address] [place], [address] Glucose Challenge Gest 1H 50 amando - GLU GEST 50g 1H 119 mg/dL Normal 70-140 [facility] Comment on above: Performed By: #### L 501.0250, L100.0500 ####[facility] [address] [place], [place], [address] Chlamydia/GC KIRBY aptimaon GC BY NUC ACID Negative Normal Negative [facility] Comment on above: Result Comment: Perf ormed at: =G - [facility] [address] [id number] Offline Cutter: Miriam Lerner MD, Phone: [phone] Performed By: #### L 7000.1800 ####[facility] [address] [place], [place], [address] CHLAMY,NUC ACID Negative Normal Negative [facility] Comment on above: Performed By: #### L 7000.1800 ####[facility] [address] [place], [place], [address] PAP IG HPV APTIMA 16/18,45on 06-19-2021 ADEQ Comment Normal . [facility] Comment on above: Order Comment: CYTOL OGY INFORMATION:- CLINICAL INFORMATION: - DATE LMP/MENOPAUSE: 02/15/21 LMP- COLLECTION VIAL: Thin Prep Vial- CLINICAL DATA MANAGER SOURCE: CERVICAL/ENDOCERVICAL- COLLECTION TECHNIQUE: BRUSH/SPATULASpecimen Comment: [id number] Comment: Source.............Cervix;EndocervixSpecimen Comment: LMP / Prev Treat...[id number] Comment: Other..............Specimen Comment: No. of containers..01 ThinPrep Vial Result Comment: Sati sfactory for evaluation. Endocervical and/or squamous metaplastic cells (endocervical component) are present. Performed By: #### L 7400.0280 ####[facility] [address] [place], [place], [address] COMMENT Comment Normal . [facility] Comment on above: Order Comment: CYTOL OGY INFORMATION:- CLINICAL INFORMATION: - DATE LMP/MENOPAUSE: 02/15/21 LMP- COLLECTION VIAL: Thin Prep Vial- CLINICAL DATA MANAGER SOURCE: CERVICAL/ENDOCERVICAL- COLLECTION TECHNIQUE: BRUSH/SPATULASpecimen Comment: [id number] Comment: Source.............Cervix;EndocervixSpecimen Comment: LMP / Prev Treat...[id number] Comment: Other..............Specimen Comment: No. of containers..01 ThinPrep Vial Result Comment: This liquid based ThinPrep(R) pap test was screened with the use of an image guided system. Performed By: #### L 7400.0280 ####[facility] [address] [facility] [place], [address] DIAG Comment Normal . [facility] Comment on above: Order Comment: CYTOL OGY INFORMATION:- CLINICAL INFORMATION: - DATE LMP/MENOPAUSE: 02/15/21 LMP- COLLECTION VIAL: Thin Prep Vial- CLINICAL DATA MANAGER SOURCE: CERVICAL/ENDOCERVICAL- COLLECTION TECHNIQUE: BRUSH/SPATULASpecimen Comment: [id number] Comment: Source.............Cervix;EndocervixSpecimen Comment: LMP / Prev Treat...[id number] Comment: Other..............Specimen Comment: No. of containers..01 ThinPrep Vial Result Comment: NEGA TIVE FOR INTRAEPITHELIAL LESION OR MALIGNANCY. Performed By: #### L 7400.0280 ####[facility] [address] [facility] [place], [address] HPV APTIMA, HR Negative Normal Negative [facility] Comment on above: Order Comment: CYTOL OGY INFORMATION:- CLINICAL INFORMATION: - DATE LMP/MENOPAUSE: 02/15/21 LMP- COLLECTION VIAL: Thin Prep Vial- CLINICAL DATA MANAGER SOURCE: CERVICAL/ENDOCERVICAL- COLLECTION TECHNIQUE: BRUSH/SPATULASpecimen Comment: [id number] Comment: Source.............Cervix;EndocervixSpecimen Comment: LMP / Prev Treat...[id number] Comment: Other..............Specimen Comment: No. of containers..01 ThinPrep Vial Result Comment: This nucleic acid amplification test detects fourteen high- risk HPV types (16,18,31,33,35,39,45,51,52,56,58,59,66,68) without differentiation. Performed at: - [facility] [id number] Offline Cutter: Miriam Lerner MD, Phone: [phone] Performed at: = - [facility] [id number] Offline Cutter: Miriam Lerner MD, Phone: [phone] Performed By: #### L 7400.0280 ####[facility] [address] [place], [place], [address] PAPSMR Comment Normal . [facility] Comment on above: Order Comment: CYTOL OGY INFORMATION:- CLINICAL INFORMATION: - DATE LMP/MENOPAUSE: 02/15/21 LMP- COLLECTION VIAL: Thin Prep Vial- CLINICAL DATA MANAGER SOURCE: CERVICAL/ENDOCERVICAL- COLLECTION TECHNIQUE: BRUSH/SPATULASpecimen Comment: [id number] Comment: Source.............Cervix;EndocervixSpecimen Comment: LMP / Prev Treat...[id number] Comment: Other..............Specimen Comment: No. of containers..01 ThinPrep Vial Result Comment: The Pap smear is a screening test designed to aid in the detection of premalignant and malignant conditions of the uterine cervix. It is not a diagnostic procedure and should not be used as the sole means of detecting cervical cancer. Both false-positive and false-negative reports do occur. Performed By: #### L 7400.0280 ####[facility] [address] [place], [place], [address] PERFORM Comment Normal . [facility] Comment on above: Order Comment: CYTOL OGY INFORMATION:- CLINICAL INFORMATION: - DATE LMP/MENOPAUSE: 02/15/21 LMP- COLLECTION VIAL: Thin Prep Vial- CLINICAL DATA MANAGER SOURCE: CERVICAL/ENDOCERVICAL- COLLECTION TECHNIQUE: BRUSH/SPATULASpecimen Comment: [id number] Comment: Source.............Cervix;EndocervixSpecimen Comment: LMP / Prev Treat...[id number] Comment: Other..............Specimen Comment: No. of containers..01 ThinPrep Vial Result Comment: Aurelia Santos, Linux Systems Analyst (ASCP) Performed By: #### L 7400.0280 ####[facility] [address] [place], [place], [address] COMM . Normal . [facility] Comment on above: Order Comment: CYTOL OGY INFORMATION:- CLINICAL INFORMATION: - DATE LMP/MENOPAUSE: 02/15/21 LMP- COLLECTION VIAL: Thin Prep Vial- CLINICAL DATA MANAGER SOURCE: CERVICAL/ENDOCERVICAL- COLLECTION TECHNIQUE: BRUSH/SPATULASpecimen Comment: [id number] Comment: Source.............Cervix;EndocervixSpecimen Comment: LMP / Prev Treat...[id number] Comment: Other..............Specimen Comment: No. of containers..01 ThinPrep Vial Performed By: #### L 7400.0280 ####[facility] [address] [place], [place], [address] Urine Cultureon 06-19-2021 URC Below infection leve l. Mixed Gram Pos Gram Neg Org [place] Count 1000-10,000 Normal [facility] Comment on above: Performed By: #### L 509.4005, L3890.6300, BPNTSNC, M100.2200, L3890.6005, L509.8000, L3890.6100, L100.0100 ####[facility] [address] [place], [address] CBC W/Diff, Automatedon 06-04 Absolute Lymph 1.54 X10 3/uL Normal 0.83-4.51 [facility] Comment on above: Performed By: #### L 509.4005, L3890.6300, BPNTSNC, M100.2200, L3890.6005, L509.8000, L3890.6100, L100.0100 #### [facility] [address] [place], [address] Absolute Neut 3.9 X10 3/uL Normal 2.0-7.7 [facility] Comment on above: Performed By: #### L 509.4005, L3890.6300, BPNTSNC, M100.2200, L3890.6005, L509.8000, L3890.6100, L100.0100 #### [facility] [address] [place], [address] Basophils/100 WBC (Bld) 0.7 % Normal 0-1 [facility] Comment on above: Performed By: #### L 509.4005, L3890.6300, BPNTSNC, M100.2200, L3890.6005, L509.8000, L3890.6100, L100.0100 #### [facility] [address] [place], [address] Eosinophils/100 WBC (Bld) 0.8 % Normal 0-5 [facility] Comment on above: Performed By: #### L 509.4005, L3890.6300, BPNTSNC, M100.2200, L3890.6005, L509.8000, L3890.6100, L100.0100 #### [facility] [address] [place], [address] Erythrocyte distribution width (RBC) [Ratio] 13.3 % Normal 11.6-14.6 [facility] Comment on above: Performed By: #### L 509.4005, L3890.6300, BPNTSNC, M100.2200, L3890.6005, L509.8000, L3890.6100, L100.0100 #### [facility] [address] [place], [address] Hematocrit (Bld) [Volume fraction] 32.3 % Low 37-47 [facility] Comment on above: Performed By: #### L 509.4005, L3890.6300, BPNTSNC, M100.2200, L3890.6005, L509.8000, L3890.6100, L100.0100 #### [facility] [address] [place], [address] Hemoglobin (Bld) [Mass/Vol] 11.2 g/dL Low 12.0-15.0 [facility] Comment on above: Performed By: #### L 509.4005, L3890.6300, BPNTSNC, M100.2200, L3890.6005, L509.8000, L3890.6100, L100.0100 #### [facility] [address] [place], [address] IG% 0.300 Normal 0.0-0.9 [facility] Comment on above: Result Comment: IG% - Immature Granulocytes (promyelocytes, myelocytes and metamyelocytes) > 1% indicates that a LEFT SHIFT is Present. Performed By: #### L 509.4005, L3890.6300, BPNTSNC, M100.2200, L3890.6005, L509.8000, L3890.6100, L100.0100 #### [facility] [address] [place], [address] Lymphocytes/100 WBC (Bld) 25.0 % Normal 19-41 [facility] Comment on above: Performed By: #### L 509.4005, L3890.6300, BPNTSNC, M100.2200, L3890.6005, L509.8000, L3890.6100, L100.0100 #### [facility] [address] [place], [address] MCH (RBC) [Entitic mass] 31.1 pg Normal 27.0-32.0 [facility] Comment on above: Performed By: #### L 509.4005, L3890.6300, BPNTSNC, M100.2200, L3890.6005, L509.8000, L3890.6100, L100.0100 #### [facility] [address] [place], [address] MCHC (RBC) [Mass/Vol] 34.7 g/dL Normal 32-36 [facility] Comment on above: Performed By: #### L 509.4005, L3890.6300, BPNTSNC, M100.2200, L3890.6005, L509.8000, L3890.6100, L100.0100 #### [facility] [address] [place], [address] MCV (RBC) [Entitic vol] 89.7 fL Normal 81-99 [facility] Comment on above: Performed By: #### L 509.4005, L3890.6300, BPNTSNC, M100.2200, L3890.6005, L509.8000, L3890.6100, L100.0100 #### [facility] [address] [place], [address] Monocytes/100 WBC (Bld) 9.4 % Normal 0-10 [facility] Comment on above: Performed By: #### L 509.4005, L3890.6300, BPNTSNC, M100.2200, L3890.6005, L509.8000, L3890.6100, L100.0100 #### [facility] [address] [place], [address] Neutrophils/100 WBC (Bld) 63.8 % Normal 47-70 [facility] Comment on above: Performed By: #### L 509.4005, L3890.6300, BPNTSNC, M100.2200, L3890.6005, L509.8000, L3890.6100, L100.0100 #### [facility] [address] [place], [address] Nucleated RBC (Bld) [#/Vol] 0 10*3/uL Normal 0-5 [facility] Comment on above: Performed By: #### L 509.4005, L3890.6300, BPNTSNC, M100.2200, L3890.6005, L509.8000, L3890.6100, L100.0100 #### [facility] [address] [place], [address] Platelet mean volume (Bld) [Entitic vol] 10.3 fL Normal 6.2-12.0 [facility] Comment on above: Performed By: #### L 509.4005, L3890.6300, BPNTSNC, M100.2200, L3890.6005, L509.8000, L3890.6100, L100.0100 #### [facility] [address] [place], [address] Platelets (Bld) [#/Vol] 319 10*3/uL Normal 150-450 [facility] Comment on above: Performed By: #### L 509.4005, L3890.6300, BPNTSNC, M100.2200, L3890.6005, L509.8000, L3890.6100, L100.0100 #### [facility] [address] [place], [address] RBC (Bld) [#/Vol] 3.60 10*6/uL Low 4.2-5.4 [facility] Comment on above: Performed By: #### L 509.4005, L3890.6300, BPNTSNC, M100.2200, L3890.6005, L509.8000, L3890.6100, L100.0100 #### [facility] [address] [place], [address] RDW SD 43.9 fl Normal 35.1-43.9 [facility] Comment on above: Performed By: #### L 509.4005, L3890.6300, BPNTSNC, M100.2200, L3890.6005, L509.8000, L3890.6100, L100.0100 #### [facility] [address] [place], [address] WBC (Bld) [#/Vol] 6.2 10*3/uL Normal 4.4-11.0 [facility] Comment on above: Performed By: #### L 509.4005, L3890.6300, BPNTSNC, M100.2200, L3890.6005, L509.8000, L3890.6100, L100.0100 #### [facility] [address] [place], [address] HIV - WCHon 06-17-2021 HIV Non-Reactive Normal Nonreactive [facility] Comment on above: Performed By: #### L 509.4005, L3890.6300, BPNTSNC, M100.2200, L3890.6005, L509.8000, L3890.6100, L100.0100 #### [facility] [address] [place], [address] Hepatitis B Surface Antigeno n 06-17-2021 HEP B Surf Ag Non-Reactive Normal Nonreactive [facility] Comment on above: Performed By: #### L 509.4005, L3890.6300, BPNTSNC, M100.2200, L3890.6005, L509.8000, L3890.6100, L100.0100 #### [facility] [address] [place], [place], [id number] Hepatitis C Antibodyon 06-17 Hepatitis C Ab Non-Reactive Normal Nonreactive [facility] Comment on above: Result Comment: Non Reactive: < 0.8 Equivocal: >/= 0.8 to < 1.0 Reactive: >/= 1.0 The [facility] recommends that a reactive/equivocal HCV antibody result be followed up by the HCV Nucleic Acid Amplification test (631812) Performed By: #### L 509.4005, L3890.6300, BPNTSNC, M100.2200, L3890.6005, L509.8000, L3890.6100, L100.0100 ####[facility] [address] [place], [address] L509.8000on 06-17-2021 Syphilis Abs Non-Reactive Normal [facility] Comment on above: Performed By: #### L 509.4005, L3890.6300, BPNTSNC, M100.2200, L3890.6005, L509.8000, L3890.6100, L100.0100 #### [facility] [address] [place], [address] T AND S-No Charge w /PNPon 06-17-2021 Ab SCREEN GEL Negative Normal [facility] Comment on above: Order Comment: PNN Performed By: #### L 509.4005, L3890.6300, BPNTSNC, M100.2200, L3890.6005, L509.8000, L3890.6100, L100.0100 ####[facility] [address] [place], [address] ABO and Rh group Nom (Bld) Blood group B Rh(D) positive Normal [facility] Comment on above: Order Comment: PNN Performed By: #### L 509.4005, L3890.6300, BPNTSNC, M100.2200, L3890.6005, L509.8000, L3890.6100, L100.0100 ####[facility] [address] [place], [place], [address] Rubella IgGon 06-17-2021 Rubella IgG Reactive Normal Nonreactive [facility] Comment on above: Result Comment: Anti body Results Interpretation of Immune Status Non Reactive Presumed Non-Immune Equivocal Equivocal Reactive Presumed Immune Performed By: #### L 509.4005, L3890.6300, BPNTSNC, M100.2200, L3890.6005, L509.8000, L3890.6100, L100.0100 #### [facility] [address] [place], [place], [id number] Vital Signs Date Time Vital Sign Value Performing Clinician Faci lity 04-05-2025 09:30-0400 Body mass index (BMI) [Ratio] 37.94 kg/m2 Dulce Milner MD Work Phone: [facility] 04-05-2025 09:30-0400 Body weight 111.58 kg Dulce Milner MD Work Phone: [facility] 04-05-2025 09:30-0400 Diastolic blood pressure 71 mm[Hg] Dulce Milner MD Work Phone: [facility] 04-05-2025 09:30-0400 Systolic blood pressure 121 mm[Hg] Dulce Milner MD Work Phone: [facility] 03-27-2025 10:47-0400 Body mass index (BMI) [Ratio] 37.94 kg/m2 Fern Mary MD Work Phone: [facility] 03-27-2025 10:47-0400 Body weight 111.58 kg Fern Mary MD Work Phone: [facility] 03-27-2025 10:47-0400 Diastolic blood pressure 64 mm[Hg] Fern Mary MD Work Phone: [facility] 03-27-2025 10:47-0400 Systolic blood pressure 110 mm[Hg] Fern Mary MD Work Phone: [facility] 03-13-2025 08:13-0400 Body mass index (BMI) [Ratio] 37.48 kg/m2 Janeen Plotts CRIMINAL JUSTICE TEACHER.CNM Work Phone: [facility] 03-13-2025 08:13-0400 Body weight 110.22 kg Janeen Plotts CRIMINAL JUSTICE TEACHER.CNM Work Phone: [facility] 03-13-2025 08:13-0400 Diastolic blood pressure 68 mm[Hg] Janeen Plotts CRIMINAL JUSTICE TEACHER.CNM Work Phone: [facility] 03-13-2025 08:13-0400 Systolic blood pressure 112 mm[Hg] Janeen Plotts CRIMINAL JUSTICE TEACHER.CNM Work Phone: [facility] 03-02-2025 09:00-0400 Body mass index (BMI) [Ratio] 37.63 kg/m2 Marisol Anaya MD Work Phone: [facility] 03-02-2025 09:00-0400 Body weight 110.68 kg Marisol Anaya MD Work Phone: [facility] 03-02-2025 09:00-0400 Diastolic blood pressure 60 mm[Hg] Marisol Anaya MD Work Phone: [facility] 03-02-2025 09:00-0400 Systolic blood pressure 112 mm[Hg] Marisol Anaya MD Work Phone: [facility] 02-13-2025 09:01-0400 Body mass index (BMI) [Ratio] 37.35 kg/m2 Fern Mary MD Work Phone: [facility] 02-13-2025 09:01-0400 Body weight 109.86 kg Fern Mary MD Work Phone: [facility] 02-13-2025 09:01-0400 Diastolic blood pressure 60 mm[Hg] Fern Mary MD Work Phone: [facility] 02-13-2025 09:01-0400 Systolic blood pressure 110 mm[Hg] Fern Mary MD Work Phone: [facility] 01-30-2025 08:40-0400 Body mass index (BMI) [Ratio] 37.63 kg/m2 Cheyenne Sinclair CRIMINAL JUSTICE TEACHER.CNM Work Phone: [facility] 01-30-2025 08:40-0400 Body weight 110.68 kg Cheyenne Sinclair CRIMINAL JUSTICE TEACHER.CNM Work Phone: [facility] 01-30-2025 08:40-0400 Diastolic blood pressure 60 mm[Hg] Cheyenne Sinclair CRIMINAL JUSTICE TEACHER.CNM Work Phone: [facility] 01-30-2025 08:40-0400 Systolic blood pressure 120 mm[Hg] Cheyenne Sinclair CRIMINAL JUSTICE TEACHER.CNM Work Phone: [facility] 01-02-2025 15:29-0400 Body mass index (BMI) [Ratio] 37.63 kg/m2 Yasmeen Edmond MD Work Phone: [facility] 01-02-2025 15:29-0400 Body weight 110.68 kg Yasmeen Edmond MD Work Phone: [facility] 01-02-2025 15:29-0400 Diastolic blood pressure 72 mm[Hg] Yasmeen Edmond MD Work Phone: [facility] 01-02-2025 15:29-0400 Systolic blood pressure 114 mm[Hg] Yasmeen Edmond MD Work Phone: [facility] 12-05-2024 14:58-0500 Body mass index (BMI) [Ratio] 36.4 kg/m2 Fern Mary MD Work Phone: [facility] 12-05-2024 14:58-0500 Body weight 107.05 kg Fern Mary MD Work Phone: [facility] 12-05-2024 14:58-0500 Diastolic blood pressure 68 mm[Hg] Fern Mary MD Work Phone: [facility] 12-05-2024 14:58-0500 Systolic blood pressure 120 mm[Hg] Fern Mary MD Work Phone: [facility] 11-13-2024 08:01-0500 Body mass index (BMI) [Ratio] 35.78 kg/m2 Yancy Haury CRIMINAL JUSTICE TEACHER.UNDERWRITING ANALYST Work Phone: [facility] 11-13-2024 08:01-0500 Body weight 105.23 kg Yancy Haury CRIMINAL JUSTICE TEACHER.UNDERWRITING ANALYST Work Phone: [facility] 11-13-2024 08:01-0500 Diastolic blood pressure 64 mm[Hg] Yancy Haury CRIMINAL JUSTICE TEACHER.UNDERWRITING ANALYST Work Phone: [facility] 11-13-2024 08:01-0500 Systolic blood pressure 112 mm[Hg] Yancy Haury CRIMINAL JUSTICE TEACHER.UNDERWRITING ANALYST Work Phone: [facility] 10-13-2024 10:20-0500 Body mass index (BMI) [Ratio] 35.78 kg/m2 Hiren Jordan MD Work Phone: [facility] 10-13-2024 10:20-0500 Body weight 105.23 kg Hiren Jordan MD Work Phone: [facility] 10-13-2024 10:20-0500 Diastolic blood pressure 70 mm[Hg] Hiren Jordan MD Work Phone: [facility] 10-13-2024 10:20-0500 Systolic blood pressure 112 mm[Hg] Hiren Jordan MD Work Phone: [facility] 09-13-2024 09:34-0500 Body height 171.5 cm Yancy Haury CRIMINAL JUSTICE TEACHER.UNDERWRITING ANALYST Work Phone: [facility] 09-13-2024 09:34-0500 Body mass index (BMI) [Ratio] 36.55 kg/m2 Yancy Haury CRIMINAL JUSTICE TEACHER.UNDERWRITING ANALYST Work Phone: [facility] 09-13-2024 09:34-0500 Body weight 107.5 kg Yancy Rodriguez APRN.UNDERWRITING ANALYST Work Phone: [facility] 09-13-2024 09:34-0500 Diastolic blood pressure 64 mm[Hg] Yancy Rodriguez APRN.UNDERWRITING ANALYST Work Phone: [facility] 09-13-2024 09:34-0500 Systolic blood pressure 100 mm[Hg] Yancy Rodriguez APRN.UNDERWRITING ANALYST Work Phone: [facility] 04-11-2024 08:07-0400 Body height 171.5 cm Christy Rosas APRN.UNDERWRITING ANALYST Work Phone: [facility] 04-11-2024 08:07-0400 Body mass index (BMI) [Ratio] 35.8 kg/m2 Christy Rosas APRN.UNDERWRITING ANALYST Work Phone: [facility] 04-11-2024 08:07-0400 Body weight 105.23 kg Christy Rosas APRN.UNDERWRITING ANALYST Work Phone: [facility] 04-11-2024 08:07-0400 Diastolic blood pressure 72 mm[Hg] Christy Rosas APRN.UNDERWRITING ANALYST Work Phone: [facility] 04-11-2024 08:07-0400 Heart rate 76 /min Christy Rosas APRN.UNDERWRITING ANALYST Work Phone: [facility] 04-11-2024 08:07-0400 SaO2% (BldA) [Mass fraction] 99 % Christy Rosas APRN.UNDERWRITING ANALYST Work Phone: [facility] 04-11-2024 08:07-0400 Systolic blood pressure 109 mm[Hg] Christy Rosas APRN.UNDERWRITING ANALYST Work Phone: [facility] 02-11-2024 07:42-0400 Diastolic blood pressure 64 mm[Hg] Yancy Rodriguez APRN.UNDERWRITING ANALYST Work Phone: [facility] 02-11-2024 07:42-0400 Systolic blood pressure 116 mm[Hg] Yancy Haury CRIMINAL JUSTICE TEACHER.UNDERWRITING ANALYST Work Phone: [facility] 02-11-2024 07:17-0400 Body mass index (BMI) [Ratio] 36.02 kg/m2 Yancy Escamillatariq CRIMINAL JUSTICE TEACHER.UNDERWRITING ANALYST Work Phone: [facility] 02-11-2024 07:17-0400 Body weight 104.33 kg Yancy Escamillatariq CRIMINAL JUSTICE TEACHER.UNDERWRITING ANALYST Work Phone: [facility] 01-13-2024 08:06-0400 Body height 170.2 cm Yancy Escamillatariq CRIMINAL JUSTICE TEACHER.UNDERWRITING ANALYST Work Phone: [facility] 01-13-2024 08:06-0400 Body weight 104.24 kg Yancy Rodriguez CRIMINAL JUSTICE TEACHER.UNDERWRITING ANALYST Work Phone: [facility] 01-13-2024 08:06-0400 Diastolic blood pressure 72 mm[Hg] Yancy Haury CRIMINAL JUSTICE TEACHER.UNDERWRITING ANALYST Work Phone: [facility] 01-13-2024 08:06-0400 Systolic blood pressure 120 mm[Hg] Yancyvictor hugo Escamillaury CRIMINAL JUSTICE TEACHER.UNDERWRITING ANALYST Work Phone: [facility] 12-02-2021 07:30-0500 Body temperature 98.1 [degF] No Primary Care Physician [facility] Work Phone: 12-02-2021 07:30-0500 Diastolic blood pressure 58 mm[Hg] No Primary Care Physician [facility] Work Phone: 12-02-2021 07:30-0500 Heart rate 108 /min No Primary Care Physician [facility] Work Phone: 12-02-2021 07:30-0500 Respiratory rate 16 /min No Primary Care Physician [facility] Work Phone: 12-02-2021 07:30-0500 Systolic blood pressure 107 mm[Hg] No Primary Care Physician [facility] Work Phone: 11-30-2021 05:27-0500 Body height 172.72 cm No Primary Care Physician [facility] Work Phone: 11-30-2021 05:27-0500 Body mass index (BMI) [Ratio] 33 kg/m2 No Primary Care Physician [facility] Work Phone: 11-30-2021 05:27-0500 Body weight 98.7 kg No Primary Care Physician [facility] Work Phone: Encounters Encounter Date [...] Start: 04-05-2025 End: 04-05-2025 ambulatory MARISOL ANAYA Facility:[facility] Start: 03-27-2025 End: 03-27-2025 Patient encounter procedure [employer]i [employer] [facility] [employer] [facility] Comment on above: Dichorionic diamniot ic twin in second trimester (HCC) Dichorionic diamniot ic twin in third trimester (HCC) (Primary Dx); Obesity affecting in third trimester, unspecified obesity type (HCC); Anemia complicating , third trimester (HCC) Start: 03-27-2025 End: 03-27-2025 ambulatory FERN MARY Facility:[facility] Start: 03-13-2025 End: 03-13-2025 Telephone encounter [...] Start: 03-13-2025 End: 03-13-2025 ambulatory MARISOL ANAYA Facility:[facility] Start: 03-12-2025 End: 03-12-2025 Refill Yancy Rodriguez APRN.CNP Work Phone: OB/Gynecology Comment on above: Refill Request Start: 03-02-2025 End: 03-02-2025 ambulatory YANCY RODRIGUEZ Facility:[facility] Start: 03-02-2025 End: 03-02-2025 Patient encounter [...] of advanced maternal age in third trimester ([facility]) Dichorionic diamniot ic twin in second trimester (HCC) Start: 02-23-2025 End: 02-23-2025 ambulatory HIREN JORDAN Facility:[facility] Start: 02-13-2025 End: 02-13-2025 Patient encounter procedure Fern Mary MD Work Phone: OB/Gynecology Comment on above: 29 weeks gestation o f (HCC) (Primary Dx); Obesity affecting in third trimester, unspecified obesity type ([facility]); Dichorionic diamniotic twin in third trimester (HCC); Need for vaccination Start: 02-13-2025 End: 02-13-2025 ambulatory FERN MARY Facility:[facility] Start: 01-31-2025 End: 04-02-2025 Follow-up encounter Yasmeen Edmond MD Work Phone: OB/Gynecology Start: 01-31-2025 End: 01-31-2025 ambulatory YASMEEN EDMOND Facility:[facility] Start: 01-30-2025 End: 04-01-2025 Follow-up encounter Yasmeen Edmond MD Work Phone: OB/Gynecology Start: 01-30-2025 End: 01-30-2025 Patient encounter procedure Pioneticsi [employer] [facility] Comment on [...] antepartum (HCC) Start: 01-30-2025 End: 01-30-2025 ambulatory [facility] Facility:[facility] Start: 01-02-2025 End: 01-02-2025 ambulatory [facility] Facility:[facility] Start: 01-02-2025 End: 01-02-2025 Patient encounter procedure Yasmeen Edmond MD Work Phone: OB/Gynecology Comment on above: Dichorionic diamniot ic twin in second trimester (HCC) (Primary Dx); Supervision of high risk in second trimester (HCC); Screening for diabetes mellitus Start: 01-02-2025 End: 01-02-2025 [facility] Facility:[facility] Start: 01-02-2025 End: 01-02-2025 Patient encounter procedure [employer] [facility] Comment on above: Dichorionic diamniot ic twin in second trimester (HCC) (Primary Dx); 23 weeks gestation of (HCC) Start: 01-02-2025 End: 03-04-2025 Follow-up encounter Fern Mary MD Work Phone: OB/Gynecology Start: 12-06-2024 End: 02-05-2025 Follow-up encounter Yancy Rodriguez APRN.CNP Work Phone: OB/Gynecology Start: 12-05-2024 End: 12-05-2024 ambulatory YANCY RODRIGUEZ Facility:[facility] Start: 12-05-2024 End: 12-05-2024 ambulatory YANCYVICTOR HUGO ESCAMILLATARIQ Facility:[facility] Start: 12-05-2024 End: 12-05-2024 Patient encounter [...] Start: 11-13-2024 End: 11-13-2024 ambulatory YANCY RANDALLTARIQ Facility:[facility] Start: 11-13-2024 End: 11-13-2024 Patient encounter [...] Telephone encounter Caren Carreno APRN.CNP Work Phone: [facility] Comment on above: Results Start: 10-13-2024 End: 10-13-2024 ambulatory CHRISTY ROSAS Facility:[facility] Start: 10-13-2024 End: 10-13-2024 Patient encounter procedure Hiren Jordan MD Work Phone: OB/Gynecology Comment on above: Encounter for superv ision of high risk in first trimester, antepartum (Primary Dx); 12 weeks gestation of Start: 10-10-2024 End: 10-11-2024 Telephone encounter Hiren Jordan MD Work Phone: OB/Gynecology Comment on above: Appointment Start: 09-13-2024 End: 09-13-2024 Patient encounter procedure Yancy Rodriguez APRN.UNDERWRITING ANALYST Work Phone: OB/Gynecology Comment on above: Encounter [...] Start: 09-13-2024 End: 09-13-2024 ambulatory YANCY RODRIGUEZ Facility:[facility] Start: 09-11-2024 End: 09-12-2024 Telephone encounter Yancy Rodriguez APRN.CNP Work Phone: OB/Gynecology Comment on above: Appointment Start: 07-28-2024 End: 07-28-2024 Refill Christy Rosas APRN.CNP Work Phone: OB/Gynecology Comment on above: Refill Request Start: 07-12-2024 End: 07-12-2024 ambulatory Carlos John [facility] Start: 07-12-2024 End: 07-12-2024 Patient encounter procedure Carlos John MA [facility] Comment on above: Population Health Na vigation Outreach (Sick[employer] Cell Navigation Outreach) Start: 06-12-2024 End: 06-12-2024 ambulatory Carlos John [facility] Start: 06-12-2024 End: 06-12-2024 Patient encounter procedure [facility] Comment on above: Population Health Na vigation Outreach (Sickle Cell Navigation Outreach) Start: 05-11-2024 ambulatory Carlos HouserNeelima MA [facility] Start: 05-11-2024 Patient encounter procedure Carlos John MA [facility] Comment on above: Population Health Na vigation Outreach (Sickle Cell Navigation Outreach/) Start: 05-01-2024 ambulatory Christy Rosas APRN.CNP Work Phone: OB/Gynecology Comment on above: metformin Start: 05-01-2024 E-mail encounter philly m caregiver Christy Rosas APRN.CNP Work Phone: OB/Gynecology Start: 04-11-2024 Telephone encounter Christy sousa APRN.CNP Work Phone: OB/Gynecology Comment on above: Insurance Authorizat ion Start: 04-11-2024 End: 04-11-2024 ambulatory CHRISTY ROSAS Facility:[facility] Start: 04-11-2024 End: 04-11-2024 Patient encounter [...] End: 01-28-2024 Subsequent hospital visit by physician [facility] Work Phone: Radiology Comment on above: Pelvic pain in femal e [R10.2] Start: 01-24-2024 Telephone encounter Yancy marquez APRN.CNP Work Phone: OB/Gynecology Comment on above: Results Start: 01-14-2024 Telephone encounter Yancy Escamillastepan marquez APRN.CNP Work Phone: OB/Gynecology Comment on above: Results Start: 01-13-2024 End: 01-13-2024 Patient encounter procedure Yancy Escamillatariq MEJIAUNDERWRITING ANALYST Work Phone: OB/Gynecology Comment on above: Encounter [...] encounter status Yancy Escamillatariq OLEA Work Phone: [facility] Start: 01-06-2024 Telephone encounter Yancy marquez APRN.CNP Work Phone: OB/Gynecology Start: 02-03-2022 End: 02-03-2022 Patient encounter procedure No Primary Care Physician [facility], Specimen Start: 12-04-2021 End: 12-04-2021 Patient encounter procedure No Primary Care Physician [facility] Start: 11-30-2021 End: 12-02-2021 Evaluation and management of inpatient No Primary Care Physician [facility] Start: 10-31-2021 End: 10-31-2021 Patient encounter procedure No Primary Care Physician [facility], Specimen Start: 10-17-2021 End: 10-17-2021 Patient encounter procedure No Primary Care Physician [facility] Start: 02-11-2018 Ambulatory SHANE ROSARIO [facility] Procedures Date Procedure Procedure Detail Performing Clinician [...] after 1st trimest / gestation Yancy Rodriguez APRN.UNDERWRITING ANALYST Work Phone: Start: 10-13-2024 Antibody screen YANCY CALHOUN Comment on above: Order Comment: Speci men Type: BLOOD SPECIMEN Ordering Facility: [facility] Address: [address] [place] [address] Performed By: #### 1 [id number] #### [facility] CLIA [id number] [address] [place] [address] [place] Start: 09-13-2024 Us uterus l imited 1/> fetuses Yancy Rodriguez APRN.UNDERWRITING ANALYST Work Phone: Start: 11-30-2021 SARS-CoV-2 Antigen (Rapid) No Primary Care Physician Start: 10-31-2021 Group B Streptococcu s Culture No Primary Care Physician Plan of Treatment Date Care Activity Detail Author Start: 02-13-2035 Urine microalbumin profile DTaP,Tdap,Td Vaccine (2 - Td or Tdap) [facility] Start: 01-12-2029 Screening for malign ant neoplasm of cervix [facility] Start: 06-04-2025 Influenza vaccination Influenza Vacc ine (#1) [facility] Start: 04-05-2025 End: 04-05-2025 Patient encounter procedure OB/Gynecology Comment on above: NST NST/OB Start: 03-27-2025 End: 03-27-2025 Patient encounter procedure Maternal Medicine Comment on above: Growth Twin Twin Growth /OB Start: 03-13-2025 End: 03-13-2025 Patient encounter procedure 03/13/2025 8:00 AM EDT Routine Office Visit OB/Gynecology [address] [place] [address] Janeen Abbott APRN.CN [address] [place] [address] OB OB/Gynecology Comment on above: OB Start: 03-02-2025 End: 06-01-2025 CBC panel - Blood by Automated count COMPLETE BLOOD COUNT Lab Routine Anemia complicating , third trimester (HCC) Expected: 03/02/2025, Expires: 06/01/2025 [facility] Work Phone: Comment on above: Expected: 03/02/2025 , Expires: 06/01/2025 Start: 03-02-2025 End: 03-02-2025 Patient encounter procedure Maternal Medicine Comment on above: Growth Growth/OB Start: 02-13-2025 End: 02-13-2025 Patient encounter procedure 02/13/2025 9:10 AM EDT Routine Office Visit OB/Gynecology [address] [place] [address] Fern Mary MD [address] [place] [address] OB OB/Gynecology Comment on above: OB Start: 01-31-2025 End: 01-31-2025 ambulatory 01/31/2025 7:00 AM EDT Results Only [place] [facility] [address] [place] [address] Abnormal glucose complicating (HCC) [O99.810] [facility] Comment on above: Abnormal glucose com plicating (HCC) [O99.810] Start: 01-30-2025 End: 01-30-2025 Patient encounter procedure Maternal Medicine Comment on above: Twin Growth Twin growth /OB Start: 01-30-2025 End: 01-30-2025 ambulatory 01/30/2025 7:45 AM EDT Results Only [place] [facility] [address] [place] [address] Glucose Test [place] [facility] Comment on above: Glucose Test Start: 01-12-2025 Screening for malign ant neoplasm of cervix Cervical Cancer Screening [facility] Start: 01-12-2025 End: 01-12-2025 Patient encounter procedure 01/12/2025 7:15 AM EDT Office Visit OB/Gynecology [address] [place] [address] Yancy Rodriguez APRN.UNDERWRITING ANALYST [address] [place] [address] Annual OB/Gynecology Comment on above: Annual Start: 01-02-2025 End: 01-02-2025 Patient encounter procedure 01/02/2025 3:40 PM EDT Routine Office Visit OB/Gynecology [address] [place] [address] Yasmeen Edmond MD [address] [place] [address] OB Routine OB/Gynecology Comment on above: OB Routine Start: 01-02-2025 End: 01-02-2025 Patient encounter procedure 01/02/2025 2:30 PM EDT Routine Office Visit Maternal Medicine [address] [place] [address] Growth US Maternal Medicine Comment on above: Growth US Start: 01-02-2025 End: 04-03-2025 ANEMIA REFLEX PANEL ANEMIA REFLEX PANEL Lab Routine Dichorionic diamniotic twin in second trimester Supervision of high risk in second trimester Screening for diabetes mellitus Expected: 01/02/2025, Expires: 04/03/2025 [facility] Comment on above: Expected: 01/02/2025 , Expires: 04/03/2025 Start: 01-02-2025 End: 01-02-2026 GESTATIONAL GLUCOSE SCREEN, 1-HOUR, 50 GRAM, NON-FASTING GESTATIONAL GLUCOSE SCREEN, 1-HOUR, 50 GRAM, NON-FASTING Lab Routine Dichorionic diamniotic twin in second trimester Supervision of high risk in second trimester Screening for diabetes mellitus Expected: 01/02/2025, Expires: 01/02/2026 [facility] Work Phone: Comment on above: Expected: 01/02/2025 , Expires: 01/02/2026 Start: 01-02-2025 End: 01-02-2026 SYPHILIS TREPONEMAL W/REFLEX SYPHILIS TREPONEMAL W/REFLEX Lab Routine Dichorionic diamniotic twin in second trimester Supervision of high risk in second trimester Screening for diabetes mellitus Expected: 01/02/2025, Expires: 01/02/2026 [facility] Comment on above: Expected: 01/02/2025 , Expires: 01/02/2026 Start: 12-05-2024 End: 12-05-2024 Patient encounter procedure Maternal Medicine Comment on above: anatomy Consult to MFM Anatomy /Consult to MFM /OB Start: 11-13-2024 End: 11-13-2024 Patient encounter procedure 11/13/2024 8:00 AM EST Routine Office Visit OB/Gynecology [address] [place] [address] Yancy Rodriguez APRN.UNDERWRITING ANALYST [address] [place] [address] 4 wks OB/Gynecology Comment on above: 4 wks Start: 10-19-2024 End: 10-19-2024 Patient encounter procedure 10/19/2024 10:30 AM EST Routine Office Visit Maternal Medicine [address] [place] [address] [facility] Comment on above: Nuchal Start: 10-13-2024 End: 10-13-2024 Patient encounter procedure OB/Gynecology Comment on above: -- discuss n uchal u/s Start: 09-13-2024 End: 12-13-2024 ANEMIA REFLEX PANEL ANEMIA REFLEX PANEL Lab Routine with uncertain dates in first trimester Expected: 09/13/2024, Expires: 12/13/2024 [facility] Work Phone: Comment on above: Expected: 09/13/2024 , Expires: 12/13/2024 Start: 09-13-2024 End: 12-13-2024 Comprehensive metabolic 2000 panel - Serum or Plasma COMPREHENSIVE METABOLIC PANEL Lab Routine Nausea and vomiting during Expected: 09/13/2024, Expires: 12/13/2024 [facility] Comment on above: Expected: 09/13/2024 , Expires: 12/13/2024 Start: 09-13-2024 End: 12-13-2024 Hemoglobin A1c in Blood HEMOGLOBIN A1C Lab Routine with uncertain dates in first trimester Expected: 09/13/2024, Expires: 12/13/2024 [facility] Comment on above: Expected: 09/13/2024 , Expires: 12/13/2024 Start: 09-13-2024 End: 12-13-2024 Hepatitis B virus surface Ag [Presence] in Serum HEPATITIS B SURFACE ANTIGEN Lab Routine with uncertain dates in first trimester Expected: 09/13/2024, Expires: 12/13/2024 [facility] Comment on above: Expected: 09/13/2024 , Expires: 12/13/2024 Start: 09-13-2024 End: 12-13-2024 Hepatitis C virus Ab [Presence] in Serum HEPATITIS C ANTIBODY IA WITH CONFIRMATION Lab Routine with uncertain dates in first trimester Expected: 09/13/2024, Expires: 12/13/2024 [facility] Comment on above: Expected: 09/13/2024 , Expires: 12/13/2024 Start: 09-13-2024 End: 12-13-2024 HIV 1+2 Ab [Presence] in Serum or Plasma by Immunoassay HIV 1/2 COMBO WITH REFLEX TO DIFFERENTIATION Lab Routine with uncertain dates in first trimester Expected: 09/13/2024, Expires: 12/13/2024 [facility] Comment on above: Expected: 09/13/2024 , Expires: 12/13/2024 Start: 09-13-2024 End: 09-13-2025 NUCHAL TRANSLUCENCY WHI NUCHAL TRANSLUCENCY WHI Anc Imaging Routine Encounter for supervision of high risk in first trimester, antepartum 8 weeks gestation of Dichorionic diamniotic twin in first trimester Expected: 09/13/2024, Expires: 09/13/2025 [facility] Comment on above: Expected: 09/13/2024 , Expires: 09/13/2025 Start: 09-13-2024 End: 09-13-2025 OBSTETRIC ULTRASOUND WHI OBSTETRIC ULTRASOUND WHI Anc Imaging Routine with uncertain dates in first trimester Expected: 09/13/2024, Expires: 09/13/2025 [facility] Comment on above: Expected: 09/13/2024 , Expires: 09/13/2025 Start: 09-13-2024 End: 12-13-2024 RUBELLA IGG ANTIBODY RUBELLA IGG ANTIBODY Lab Routine with uncertain dates in first trimester Expected: 09/13/2024, Expires: 12/13/2024 [facility] Comment on above: Expected: 09/13/2024 , Expires: 12/13/2024 Start: 09-13-2024 End: 12-13-2024 SYPHILIS TREPONEMAL W/REFLEX SYPHILIS TREPONEMAL W/REFLEX Lab Routine with uncertain dates in first trimester Expected: 09/13/2024, Expires: 12/13/2024 [facility] Comment on above: Expected: 09/13/2024 , Expires: 12/13/2024 Start: 09-13-2024 End: 12-13-2024 TYPE + SCREEN TYPE + SCREEN Blood Bank Routine with uncertain dates in first trimester Expected: 09/13/2024, Expires: 12/13/2024 [facility] Comment on above: Expected: 09/13/2024 , Expires: 12/13/2024 Start: 09-13-2024 End: 09-13-2024 Patient encounter procedure 09/13/2024 9:30 AM EST Initial Office Visit OB/Gynecology [address] [place] [address] Yancy Rodriguez, JENNIFER.UNDERWRITING ANALYST [address] [place] [address] OB/Gynecology Start: 06-04-2024 Covid-19 Vaccine ( season) Covid-19 Vaccine () [facility] Start: 06-04-2024 Covid-19 Vaccine ( season) Covid-19 Vaccine () [facility] Start: 06-04-2024 Influenza vaccination [facility] Start: 05-24-2024 End: 05-24-2024 Patient encounter procedure 05/24/2024 7:30 AM EDT Office Visit OB/Gynecology [address] [place] [address] Christy Rosas, CRIMINAL JUSTICE TEACHER.UNDERWRITING ANALYST [address] [place] [address] Wt Mgmt F/U OB/Gynecology Comment on above: Wt Mgmt F/U Start: 04-11-2024 End: 04-11-2024 Patient encounter procedure 04/11/2024 8:00 AM EDT Office Visit OB/Gynecology [address] [place] [address] Christy Rosas, CRIMINAL JUSTICE TEACHER.UNDERWRITING ANALYST [address] [place] [address] new OB/Gynecology Comment on above: new Start: 02-11-2024 End: 02-11-2024 Patient encounter procedure 02/11/2024 7:15 AM EDT Office Visit OB/Gynecology [address] [place] [address] Yancy Rodriguez, CRIMINAL JUSTICE TEACHER.UNDERWRITING ANALYST [address] [place] [place] [address] 4 wk follow up OB/Gynecology Comment on above: 4 wk follow up Start: 01-28-2024 End: 01-28-2024 Patient encounter procedure 01/28/2024 7:00 AM EDT Appointment Radiology [address] [place] [address] Pelvic pain in female [R10.2] Radiology Comment on above: Pelvic pain in femal e [R10.2] Start: 01-13-2024 End: 04-13-2024 Hemoglobin A1c in Blood [facility] Work Phone: Comment on above: Expected: 01/13/2024 , Expires: 04/13/2024 Start: 01-13-2024 End: 04-13-2024 Prolactin [Mass/volume] in Serum or Plasma [facility] Work Phone: Comment on above: Expected: 01/13/2024 , Expires: 04/13/2024 Start: 01-13-2024 End: 04-13-2024 Thyrotropin [Units/volume] in Serum or Plasma [facility] Work Phone: Comment on above: Expected: 01/13/2024 , Expires: 04/13/2024 Start: 10-04-2023 Behavioral Health Screening Behavioral Health Screening [facility] Start: 06-04-2023 Covid-19 Vaccine ( season) Covid-19 Vaccine ( season) [facility] Start: 06-04-2023 Covid-19 Vaccine ( season) Covid-19 Vaccine ( season) [facility] Start: 2020 Screening for malign ant neoplasm of cervix HPV Testing [facility] Start: 2011 Screening for malign ant neoplasm of cervix Pap Testing [facility] Start: 2009 Hepatitis B Vaccine (1 of 3 - 19+ 3-dose series) Hepatitis B Vaccine (1 of 3 - 19+ 3-dose series) [facility] Start: 2009 Pneumococcal vaccination Pneumococcal Vaccine (1 of 2 - PCV) [facility] Start: 2009 Shingrix Vaccine (1 of 2) Shingrix Vaccine (1 of 2) [facility] Start: 2009 Urine microalbumin profile DTaP,Tdap,Td Vaccine (1 - Tdap) [facility] Start: 2008 Hepatitis C screening Hepatitis C Sc reening [facility] Start: 2008 HIV screening HIV Screening [facility] Start: 1996 Pneumococcal vaccination Pneumococcal Vaccine (1 of 2 - PCV) [facility] Bacteria identified in Urine by Culture URINE CULTURE Microbiology Routine with uncertain dates in first trimester 09/13/2024 10:36 AM [facility] Chlamydia trachomatis+Neisseria gonorrhoeae DNA [Presence] in Unspecified specimen by KIRBY with probe detection GONORRHEA/CHLAMYDIA NAAT Lab Routine Screening examination for STD (sexually transmitted disease) 01/13/2024 9:27 AM T [facility] Work Phone: Chlamydia trachomatis+Neisseria gonorrhoeae DNA [Presence] in Unspecified specimen by KIRBY with probe detection GONORRHEA/CHLAMYDIA NAAT Lab Routine with uncertain dates in first trimester 09/13/2024 10:36 AM [facility] End: 06-04-2025 nonstress test NON-STRESS TEST Procedures Routine Dichorionic diamniotic twin in second trimester (HCC) Encounter for supervision of high risk in second trimester, antepartum ([facility]) Once per week for 4 Occurrences starting 01/30/2025 until 06/04/2025 [facility] Work Phone: Comment on above: Once per week for 4 Occurrences starting 01/30/2025 until 06/04/2025 End: 04-25-2025 nonstress test NON-STRESS TEST Procedures Routine Dichorionic diamniotic twin in third trimester ([facility]) Obesity affecting in third trimester, unspecified obesity type ([facility]) Multigravida of advanced maternal age in third trimester ([facility]) Once per week for 3 Occurrences starting 03/02/2025 until 04/25/2025 [facility] Comment on above: Once per week for 3 Occurrences starting 03/02/2025 until 04/25/2025 HIGH RISK HUMAN PAPILLOMA VIRUS (HPV), PCR FOR DETECTION AND GENOTYPING HIGH RISK HUMAN PAPILLOMA VIRUS (HPV), PCR FOR DETECTION AND GENOTYPING Lab Routine Screening for cervical cancer Encounter for screening for human papillomavirus (HPV) 01/13/2024 9:27 AM T [facility] Work Phone: End: 03-30-2025 OBSTETRIC ULTRASOUND WHI OBSTETRIC ULTRASOUND WHI Anc Imaging Routine Dichorionic diamniotic twin in second trimester Once per month for 4 Occurrences starting 12/05/2024 until 03/30/2025 [facility] Work Phone: Comment on above: Once per month for 4 Occurrences starting 12/05/2024 until 03/30/2025 PAP TEST PAP TEST Lab Ade dickson Screening for cervical cancer Encounter for screening for human papillomavirus (HPV) 01/13/2024 9:27 AM EDT [facility] Work Phone: Patient referral [facility] Work Phone: Removal intrauterine device iud REMOVE INTRAUTERINE DEVICE Procedures Routine Encounter for IUD removal Ordered: 01/13/2024 [facility] Work Phone: Comment on above: Ordered: 01/13/2024 Removal intrauterine device iud REMOVE INTRAUTERINE DEVICE Procedures Routine Encounter for IUD removal Ordered: 02/11/2024 [facility] Work Phone: Comment on above: Ordered: 02/11/2024 ROUTINE, GR OUP B STREPTOCOCCUS BY PCR ROUTINE, GROUP B STREPTOCOCCUS BY PCR Microbiology Routine Dichorionic diamniotic twin in third trimester (HCC) Obesity affecting in third trimester, unspecified obesity type (HCC) Anemia complicating , third trimester (HCC) 03/27/2025 12:25 PM EDT [facility] TRICHOMONAS VAGINALI S NAAT TRICHOMONAS VAGINALIS NAAT Lab Routine Screening examination for STD (sexually transmitted disease) 01/13/2024 9:27 AM EDT [facility] Work Phone: URINE OB DIP B/O URINE OB DIP B/ O Lab Routine Dichorionic diamniotic twin in third trimester (HCC) Obesity affecting in third trimester, unspecified obesity type (HCC) Anemia complicating , third trimester (HCC) Ordered: 03/27/2025 [facility] Work Phone: Comment on above: Ordered: 03/27/2025 End: 02-11-2025 US Pelvis transvaginal US FEMALE PELVIS TRANSVAG Radiology Routine Pelvic pain in female 1 Occurrences starting 01/13/2024 until 02/11/2025 [facility] Work Phone: Comment on above: 1 Occurrences starti ng 01/13/2024 until 02/11/2025 US Pelvis transvaginal US FEMALE PELVIS TRANSVAG Radiology Routine Pelvic pain in female 01/28/2024 7:49 AM EDT [facility] Work Phone: [facility] Immunizations Immunization Date Immunization Notes Care Provider Kody marinelli 02-13-2025 tetanus toxoid, redu joshua diphtheria toxoid, and acellular pertussis vaccine, adsorbed Fern Mary MD Work Phone: [facility] 11-13-2024 influenza, seasonal, injectable Yancy Hatariq CRIMINAL JUSTICE TEACHER.UNDERWRITING ANALYST Work Phone: [facility] 11-13-2024 influenza virus vaccine, unspecified formulation Dulce Milner MD Work Phone: [facility] 11-30-2021 influenza, seasonal, injectable No Primary Care Physician [facility] Work Phone: 11-30-2021 influenza virus vaccine, unspecified formulation Yancy Hatariq CRIMINAL JUSTICE TEACHER.UNDERWRITING ANALYST Work Phone: [facility] Payers Date Payer Category Payer Private Health Insurance [id number] 2023 Unknown [id number] 2023 Unknown [id number] Self-pay [facility] [employer] [id number] Unknown [facility] [employer] [id number] Social History Date Type Detail Facility Start: [facility]30[facility] Start: 1990 Sex Assigned At Female W [facility] Work Phone: Start: 01-13-2024 [facility] Start: 01-13-2024 Tobacco use and exposure Smokeless tobacco non-user [facility] Start: 01-13-2024 End: 04-05-2025 Alcohol intake Lifetime non-drinker (finding) [facility] Start: 01-13-2024 End: 02-11-2024 History of Social function [facility] Start: 01-13-2024 End: 02-11-2024 Tobacco use panel [facility] Start: 1990 Sex Assigned At Not on file C [facility] National Score (1-10 0), lower number is lower risk 67 [facility] The thought of chiquis leslie myself has occurred to me Never [facility] Start: 08-02-2024 [facility] Start: 09-12-2024 Education 20 [facility] Goals Date Patient Goal Desired Activity /State Personal health goal Functional Status Date Assessment Result Facility 11-30-2021 Functional status Activity [facility] Work Phone: Clinical Notes 11-30-2021 to 04-05-2025 Dulce Milner MD - 04/05/2025 3:23 PM EDTPrenatal Quick Notes - Dulce Milner MD - 04/05/2025 11:01 AM EDTPrenatal Quick Notes - Dulce Milner MD - 04/05/2025 11:01 AM EDT Note Date & Type Note Facility 04-05-2025 Note HNO ID: [id number] Author: DULCE MILNER MD Service: ? Author Type: Physician Type: Progress Notes Filed: 04/05/2025 15:23 Note Text: NST SUMMARY PROVIDER ASSESSMENT AND INTERPRETATION Indications for NST: Multiple Gestation Baseline: 145 Variability: Moderate Accelerations: Present 15 X 15 Decelerations: None Interpretation: Reactive SIGNATURE: Dulce Milner MD [facility] 04-05-2025 History of Present illness Narrative NST SUMMARY PROVIDER ASSESSMENT AND INTERPRETATION Indications for NST: Multiple Gestation Baseline: 145 Variability: Moderate Accelerations: Present 15 X 15 Decelerations: None Interpretation: Reactive SIGNATURE: Dulce Milner MD documented in this encounter [facility] 07-03-2025 Progress note Formatting of t his [...] Supervision of high risk in third trimester ([facility]) - ICD9: V23.9, ICD10: O09.93 (primary diagnosis) - URINE OB DIP B/O 2. Dichorionic diamniotic twin in third trimester ([facility]) - ICD9: 651.03, V91.03, ICD10: O30.043 URINE OB DIP B/O 3. Obesity affecting in third trimester, unspecified obesity type ([facility]) - ICD9: 649.13, ICD10: O99.213 Weekly NSTs - URINE OB DIP B/O 4. Anemia complicating , third trimester ([facility]) - ICD9: 648.23, 285.9, ICD10: O99.013 - URINE OB DIP B/O 5. 37 weeks gestation of ([facility]) - ICD9: V22.2, ICD10: Z3A.37 - URINE OB DIP B/O Dulce Milner MD T [facility] 04-05-2025 Miscellaneous Notes S: Karissa Perdomo is [...] Supervision of high risk in third trimester ([facility]) - ICD9: V23.9, ICD10: O09.93 (primary diagnosis) - URINE OB DIP B/O 2. Dichorionic diamniotic twin in third trimester ([facility]) - ICD9: 651.03, V91.03, ICD10: O30.043 URINE OB DIP B/O 3. Obesity affecting in third trimester, unspecified obesity type ([facility]) - ICD9: 649.13, ICD10: O99.213 Weekly NSTs - URINE OB DIP B/O 4. Anemia complicating , third trimester ([facility]) - ICD9: 648.23, 285.9, ICD10: O99.013 - URINE OB DIP B/O 5. 37 weeks gestation of ([facility]) - ICD9: V22.2, ICD10: Z3A.37 - URINE OB DIP B/O Dulce Milner MD documented in this encounter [facility] 04-05-2025 Instructions Prabha Saunders MA - 04/05/2025 9:22 AM EDT SEQUENTIAL SCREENINGS The [facility] offers sequential screenings for women who are [...] It will require an appointment with our transfill technician. This is not an ultrasound performed [...] the above symptoms, contact our office at [phone] and ask to speak with a nurse. After hours, you can call doctors registry at [phone] OR call [facility] at [phone] and ask to have the doctor integration consultant paged. If you consider this an emergency, dial 9-1-5 or go to your nearest emergency department. NEED HELP? Are you dealing with a violent or abusive relationship? Are you a victim of rape or sexual assult? Call [facility] ([place]) 24 hour Crisis Hotline: 981.480.1218 or 833-598-9395. MANUAL Your Guide to a Healthy manual is now on-line. Visit [email or web address] to download your free copy documented in this encounter [facility] 03-27-2025 Progress note Formatting of t his note might be different from the original. KJ - S: Louceline denies LOF, contractions or vaginal bleeding. O: 35w6d, see flow sheet SENSITIVE EXAM: The sensitive examination was discussed with the Patient or Patient's Authorized [employer]. As applicable, any other physician, advance practice provider, medical student, or other health professional student that will be observing or involved in the sensitive examination for educational or training purposes was discussed with the Patient or Authorized [employer]. The Patient or Authorized [employer] has agreed to proceed with the sensitive [...] PTL & FM precautions Fern Mary MD [facility] 03-27-2025 Miscellaneous Notes KJ - S: Louceline denies LOF, contractions or vaginal bleeding. O: 35w6d, see flow sheet SENSITIVE EXAM: The sensitive examination was discussed with the Patient or Patient's Authorized [employer]. As applicable, any other physician, advance practice provider, medical student, or other health professional student that will be observing or involved in the sensitive examination for educational or training purposes was discussed with the Patient or Authorized [employer]. The Patient or Authorized [employer] has agreed to proceed with the sensitive [...] affecting in third trimester, unspecified obesity type ([facility]) Orders: ROUTINE, GROUP B STREPTOCOCCUS BY PCR URINE OB DIP B/O Anemia complicating , third trimester ([facility]) Orders: ROUTINE, GROUP B STREPTOCOCCUS BY PCR URINE OB DIP B/O Reviewed PTL & FM precautions Fern Mary MD documented in this encounter [facility] 03-27-2025 Note Indication Evaluation of growth, Evaluation [...] 03/27/2025 10:49 AM EDT SEQUENTIAL SCREENINGS The [facility] offers sequential screenings for women who are [...] It will require an appointment with our transfill technician. This is not an ultrasound performed [...] the above symptoms, contact our office at [phone] and ask to speak with a nurse. After hours, you can call doctors registry at [phone] OR call [facility] at [phone] and ask to have the doctor integration consultant paged. If you consider this an emergency, dial 9-1-3 or go to your nearest emergency department. NEED HELP? Are you dealing with a violent or abusive relationship? Are you a victim of rape or sexual assult? Call [facility] ([place]) 24 hour Crisis Hotline: 655.714.9815 or 141-276-6174. MANUAL Your Guide to a Healthy manual is now on-line. Visit [email or web address] ncyGuide to download your free copy documented in this encounter [facility] 03-13-2025 Telephone encounter Note Order signed and faxed. Chayito Cedeno RN [facility] 03-13-2025 Miscellaneous Notes Order signed and faxed. Chayito Cedeno RN Breast pump order received from [employer]. To CP to sign. Chayito Cedeno RN documented in this encounter [facility] 03-13-2025 Telephone encounter Note Breast pump order received from [employer]. To CP to sign. Chayito Cedeno RN [facility] 03-13-2025 Progress note Formatting of t his [...] at 36 weeks gestation Janeen Abbott APRN.CNM [facility] 03-13-2025 Miscellaneous Notes S: Karissa Ariza is [...] Janeen Abbott APRN.CNM documented in this encounter [facility] 03-13-2025 Instructions Steve Ramirez MA - 03/13/2025 8:11 AM EDT SEQUENTIAL SCREENINGS The [facility] offers sequential screenings for women who are [...] It will require an appointment with our transfill technician. This is not an ultrasound performed [...] the above symptoms, contact our office at [phone] and ask to speak with a nurse. After hours, you can call doctors registry at [phone] OR call [facility] at [phone] and ask to have the doctor integration consultant paged. If you consider this an emergency, dial 9--7 or go to your nearest emergency department. NEED HELP? Are you dealing with a violent or abusive relationship? Are you a victim of rape or sexual assult? Call [facility] ([place]) 24 hour Crisis Hotline: 683.552.1984 or 381-235-2042. MANUAL Your Guide to a Healthy manual is now on-line. Visit [email or web address] to download your free copy documented in this encounter [facility] 03-02-2025 Note Indication Evaluation of growth Di-Di [...] 7 oz EFW by: Hadlock (HC-AC-FL) Extended Voice Studies Director 4.7 mm Extremities / Bony Struc FL [...] 11 oz EFW by: Hadlock (HC-AC-FL) Extended Voice Studies Director 5.4 mm Extremities / Bony Struc FL [...] lesion on right forearm- started as small eek - now larger about 4.5cm Physical Exam: Gen: female in no apparent distress Abd: soft, Gravid. Non tender to palpation. See flow sheet Right forearm- 4.5cm lesion with dark perimeter clearer center?? Ring worm @ 32.2 weeks Assessment & Plan Dichorionic diamniotic twin in third trimester ([facility]) NSTs 36 weeks Continue growth Q4 weeks Orders: NON-STRESS TEST; Standing Obesity affecting in third trimester, unspecified obesity type ([facility]) Growth us today pending NSTs 36 weeks Orders: NON-STRESS TEST; Standing Anemia complicating , third trimester ([facility]) Will repeat cbc in 2 weeks Has been taking iron for only 2 weeks or so. Orders: COMPLETE BLOOD COUNT; Future Supervision of high risk in third trimester ([facility]) Skin rash Discussed PCP, urgent care or derm to have it evaluated Ok to continue hydrocortisone topically 32 weeks gestation of ([facility]) Marisol Escalera MD [facility] 03-02-2025 Miscellaneous Notes DM-Pt doing well. Denies vaginal Bleeding, Leaking fluid, or regular Contractions. Pt reports good movement x 2 . Has skin lesion on right forearm- started as small eek - now larger about 4.5cm Physical Exam: Gen: female in no apparent distress Abd: soft, Gravid. Non tender to palpation. See flow sheet Right forearm- 4.5cm lesion with dark perimeter clearer center?? Ring worm @ 32.2 weeks Assessment & Plan Dichorionic diamniotic twin in third trimester ([facility]) NSTs 36 weeks Continue growth Q4 weeks Orders: NON-STRESS TEST; Standing Obesity affecting in third trimester, unspecified obesity type ([facility]) Growth us today pending NSTs 36 weeks Orders: NON-STRESS TEST; Standing Anemia complicating , third trimester ([facility]) Will repeat cbc in 2 weeks Has been taking iron for only 2 weeks or so. Orders: COMPLETE BLOOD COUNT; Future Supervision of high risk in third trimester ([facility]) Skin rash Discussed PCP, urgent care or derm to have it evaluated Ok to continue hydrocortisone topically 32 weeks gestation of ([facility]) Marisol Escalera MD documented in this encounter [facility] 03-02-2025 Instructions Mar Weiner MA - 03/02/2025 8:59 AM EDT SEQUENTIAL SCREENINGS The [facility] offers sequential screenings for women who are [...] It will require an appointment with our transfill technician. This is not an ultrasound performed [...] the above symptoms, contact our office at [phone] and ask to speak with a nurse. After hours, you can call doctors registry at [phone] OR call [facility] at [phone] and ask to have the doctor integration consultant paged. If you consider this an emergency, dial 9- or go to your nearest emergency department. NEED HELP? Are you dealing with a violent or abusive relationship? Are you a victim of rape or sexual assult? Call [facility] ([place]) 24 hour Crisis Hotline: 637.283.8659 or [phone]. MANUAL Your Guide to a Healthy manual is now on-line. Visit [email or web address] ncyGuide to download your free copy documented in this encounter [facility] 02-23-2025 Note HNO ID: [id number] Author: HIREN JORDAN MD Service: ? Author [...] - RTO 2 wk Hiren Jordan DO [facility] 02-13-2025 Progress note Formatting of t his [...] PTL & FM precautions Fern Mary MD [facility] 02-13-2025 Miscellaneous Notes KJ - S: Louceline [...] Fern Mary MD documented in this encounter [facility] 02-13-2025 Note HNO ID: [id number] Author: TASH ROMERO MA Service: ? Author Type: Data Power Consultant Type: Progress Notes Filed: 02/13/2025 09:45 Note [...] severely ill: Yes Patient denies history of Guillain-[place] Syndrome (a severe paralytic illness): Yes Tdap Adacel injection was given without incident. See immunizations for details of immunizations administered today. VIS sheet provided: Yes Provider Fern Mary MD was present in office at time of injection. Tash Romero MA [facility] 02-13-2025 History of Present illness Narrative Patient [...] severely ill: Yes Patient denies history of Guillain-[place] Syndrome (a severe paralytic illness): Yes Tdap Adacel injection was given without incident. See immunizations for details of immunizations administered today. VIS sheet provided: Yes Provider Fern Mary MD was present in office at time of injection. Tash Romero MA documented in this encounter [facility] 02-13-2025 Instructions Tash Romero MA - 02/13/2025 8:57 AM EDT SEQUENTIAL SCREENINGS The [facility] offers sequential screenings for women who are [...] It will require an appointment with our transfill technician. This is not an ultrasound performed [...] the above symptoms, contact our office at [phone] and ask to speak with a nurse. After hours, you can call doctors registry at [phone] OR call [facility] at [phone] and ask to have the doctor integration consultant paged. If you consider this an emergency, dial 9-1-5 or go to your nearest emergency department. NEED HELP? Are you dealing with a violent or abusive relationship? Are you a victim of rape or sexual assult? Call [facility] ([place]) 24 hour Crisis Hotline: 473.860.3068 or [phone]. MANUAL Your Guide to a Healthy manual is now on-line. Visit [email or web address] ncyGuide to download your free copy documented in this encounter [facility] 01-30-2025 Progress note Formatting of t his [...] RTO in 2 weeks Cheyenne Sinclair APRN.CNM [facility] 01-30-2025 Miscellaneous Notes SO-S: Karissa Ariza is [...] Cheyenne Sinclair APRN.CNM documented in this encounter [facility] 01-30-2025 Note Indication Evaluation of growth Di-Di [...] 12 oz EFW by: Hadlock (HC-AC-FL) Extended Voice Studies Director 4.1 mm Extremities / Bony Struc [place] [...] 01/30/2025 8:36 AM EDT SEQUENTIAL SCREENINGS The [facility] offers sequential screenings for women who are [...] It will require an appointment with our transfill technician. This is not an ultrasound performed [...] the above symptoms, contact our office at [phone] and ask to speak with a nurse. After hours, you can call doctors registry at [phone] OR call [facility] at [phone] and ask to have the doctor integration consultant paged. If you consider this an emergency, dial 4-8-6 or go to your nearest emergency department. NEED HELP? Are you dealing with a violent or abusive relationship? Are you a victim of rape or sexual assult? Call [facility] ([facility] 24 hour Crisis Hotline: 994.460.5858 or 595-646-7591. MANUAL Your Guide to a Healthy manual is now on-line. Visit [email or web address] to download your free copy documented in this encounter [facility] 01-02-2025 Progress note Formatting of t his [...] Supervision of high risk in second trimester ([facility]) Orders: GESTATIONAL GLUCOSE SCREEN, 1-HOUR, 50 GRAM, NON-FASTING; Future SYPHILIS TREPONEMAL W/REFLEX; Future ANEMIA REFLEX PANEL; Future Screening for diabetes mellitus Orders: GESTATIONAL GLUCOSE SCREEN, 1-HOUR, 50 GRAM, NON-FASTING; Future SYPHILIS TREPONEMAL W/REFLEX; Future ANEMIA REFLEX PANEL; Future growth q 4 weeks cont asa and PNV Yasmeen Edmond M.D. [facility] 01-02-2025 Miscellaneous Notes RR- VB No. LOF No. CTXS No. Movement: present. Other c/o: jheartburn relieved w/ pepcid Medication list reviewed. SENSITIVE EXAM: Sensitive exam not performed. Physical Exam See Flow Sheet Gen: no accute distress, well appearing A/P 23w6d Estimated Date of Delivery: 04/25/25 Assessment & Plan Dichorionic diamniotic twin in second trimester ([facility]) Orders: GESTATIONAL GLUCOSE SCREEN, 1-HOUR, 50 GRAM, NON-FASTING; Future SYPHILIS TREPONEMAL W/REFLEX; Future ANEMIA REFLEX PANEL; Future Supervision of high risk in second trimester ([facility]) Orders: GESTATIONAL GLUCOSE SCREEN, 1-HOUR, 50 GRAM, NON-FASTING; Future SYPHILIS TREPONEMAL W/REFLEX; Future ANEMIA REFLEX PANEL; Future Screening for diabetes mellitus Orders: GESTATIONAL GLUCOSE SCREEN, 1-HOUR, 50 GRAM, NON-FASTING; Future SYPHILIS TREPONEMAL W/REFLEX; Future ANEMIA REFLEX PANEL; Future growth q 4 weeks cont asa and PNV Yasmeen Edmond M.D. documented in this encounter [facility] 01-02-2025 Instructions Regine, Mar, MA - 01/02/2025 3:31 PM EDT SEQUENTIAL SCREENINGS The [facility] offers sequential screenings for women who are [...] It will require an appointment with our transfill technician. This is not an ultrasound performed [...] the above symptoms, contact our office at [phone] and ask to speak with a nurse. After hours, you can call doctors registry at [phone] OR call [facility] at [phone] and ask to have the doctor integration consultant paged. If you consider this an emergency, dial 9-1-8 or go to your nearest emergency department. NEED HELP? Are you dealing with a violent or abusive relationship? Are you a victim of rape or sexual assult? Call [facility] ([facility] 24 hour Crisis Hotline: 796.358.5983 or 564-862-9044. MANUAL Your Guide to a Healthy manual is now on-line. Visit [email or web address] ncyGuide to download your free copy documented in this encounter [facility] 01-02-2025 Note Indication Evaluation of growth Di-Di [...] 6 oz EFW by: Hadlock (HC-AC-FL) Extended Voice Studies Director 3.8 mm Extremities / Bony Struc [place] [...] 8 oz EFW by: Hadlock (HC-AC-FL) Extended Voice Studies Director 4.0 mm Extremities / Bony Struc FL [...] risk in second trimester Fern Mary MD [facility] 12-05-2024 Miscellaneous Notes KJ - S: Louceline [...] Fern Mary MD documented in this encounter [facility] 12-05-2024 Instructions Nidhi Fontana MA - 12/05/2024 2:55 PM EST SEQUENTIAL SCREENINGS The [facility] offers sequential screenings for women who are [...] It will require an appointment with our transfill technician. This is not an ultrasound performed [...] the above symptoms, contact our office at [phone] and ask to speak with a nurse. After hours, you can call doctors registry at [phone] OR call [facility] at [phone] and ask to have the doctor integration consultant paged. If you consider this an emergency, dial 2-1-3 or go to your nearest emergency department. NEED HELP? Are you dealing with a violent or abusive relationship? Are you a victim of rape or sexual assult? Call [facility] ([place]) 24 hour Crisis Hotline: 784.773.9494 or 253-529-4487. MANUAL Your Guide to a Healthy manual is now on-line. Visit [email or web address] to download your free copy documented in this encounter [facility] 12-05-2024 Note HNO ID: [id number] Author: NOEMI BRUSH MD Service: ? Author Type: Physician Type: Progress Notes Filed: 12/05/2024 15:14 Note Text: Obstetrics AND Gynecology [place] [facility] Outpatient Visit Type: Maternal Medicine Consult Outpatient Visit Date: December 05, 2024 Service Time: 2:14 PM Requesting Provider: Yancy Rodriguez History of Present Illness: Karissa Ariza is 34 year old at 19w6d presenting for consultation with Maternal- Medicine at [facility] in the setting of dichorionic-diamniotic twin . [...] Discussed Colace and increased hydration. Yancy Rodriguez, CRIMINAL JUSTICE TEACHER.UNDERWRITING ANALYST Depression with anxiety Dyslipidemia 2023 Gastroduodenal ulcer [...] by end of this week. 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 The ADA defines fasting as no caloric intake for at least 8 hours. Fasting plasma glucose results between 100 to 125 mg/dL indicate increased risk for diabetes (prediabetes). Fasting (more content not included)... [facility] 12-05-2024 History of Present illness Narrative Obstetrics & Gynecology [place] [facility] Outpatient Visit Type: Maternal Medicine Consult Outpatient Visit Date: December 05, 2024 Service Time: 2:14 PM Requesting Provider: Yancy Rodriguez History of Present Illness: Karissa Ariza is 34 year old at 19w6d presenting for consultation with Maternal- Medicine at [facility] in the setting of dichorionic-diamniotic twin . [...] Discussed Colace and increased hydration. Yancy Rodriguez, CRIMINAL JUSTICE TEACHER.UNDERWRITING ANALYST Depression with anxiety Dyslipidemia 2023 Gastroduodenal ulcer [...] by end of this week. Yancy Rodriguez APRN.UNDERWRITING ANALYST Obesity PCOS (polycystic ovarian syndrome) 2015 Peptic [...] 74 - 99 mg/dL Final Comment: The [place] [employer] (ADA) provides guidance for cutoff [...] Standards of Medical Care in Diabetes 2016, [place] [employer]. Diabetes Care. 2016.39(Suppl 1). BUN [...] consider ordering the hemoglobin evaluation cascade test. [place] [employer] guidelines indicate that patients with [...] a calculated value from HgbA1c and is patient intake representative of the average blood glucose level [...] Current Assessment & Plan Urine culture qtrimester INFORMATION MANAGEMENT SPECIALIST Dichorionic diamniotic twin in first trimester - [...] this time. Update throughout . Yancy Rodriguez APRN.UNDERWRITING ANALYST Other Obesity affecting in second trimester Overview September 13, 2024 -Pre BMI 35 - Plan for 32 week growth q 4 weeks. - Weekly NSTs at 36 weeks. History of depression Overview She states she did have depression after the of her child. Yancy Rodriguez APRN.UNDERWRITING ANALYST Other Visit Diagnoses Encounter for anatomic survey [...] which included preparing to see the patient, anek-sc-gyon patient care, completing clinical documentation, counseling and educating the patient/family/caregiver, and communicating results to the patient/family/caregiver. I shared my findings and recommendations via the shared medical record or via the mail to the referring provider. Noemi Brush MD documented in this encounter [facility] 11-13-2024 Progress note Formatting of t his [...] or sooner as needed. Yancy Rodriguez APRN.SHARDA [facility] 11-13-2024 Miscellaneous Notes EH - S: Karissa [...] weeks or sooner as needed. Yancy Rodriguez APRN.UNDERWRITING ANALYST documented in this encounter [facility] 11-13-2024 Instructions Nidhi Fontana MA - 11/13/2024 7:54 AM EST SEQUENTIAL SCREENINGS The [facility] offers sequential screenings for women who are [...] It will require an appointment with our transfill technician. This is not an ultrasound performed [...] the above symptoms, contact our office at [phone] and ask to speak with a nurse. After hours, you can call doctors registry at [phone] OR call [facility] at [phone] and ask to have the doctor integration consultant paged. If you consider this an emergency, dial 5-6-5 or go to your nearest emergency department. NEED HELP? Are you dealing with a violent or abusive relationship? Are you a victim of rape or sexual assult? Call [facility] ([place]) 24 hour Crisis Hotline: 553.978.2586 or 804-807-1788. MANUAL Your Guide to a Healthy manual is now on-line. Visit [email or web address] ncyGuide to download your free copy SEQUENTIAL SCREENINGS The [facility] offers sequential screenings for women who are [...] It will require an appointment with our transfill technician. This is not an ultrasound performed [...] the above symptoms, contact our office at [phone] and ask to speak with a nurse. After hours, you can call doctors registry at [phone] OR call [facility] at [phone] and ask to have the doctor integration consultant paged. If you consider this an emergency, dial 9--7 or go to your nearest emergency department. NEED HELP? Are you dealing with a violent or abusive relationship? Are you a victim of rape or sexual assult? Call [facility] ([place]) 24 hour Crisis Hotline: 343.754.3651 or 168-134-3441. MANUAL Your Guide to a Healthy manual is now on-line. Visit [email or web address] ncyGuide to download your free copy documented in this encounter [facility] 10-16-2024 Telephone encounter Note Left message for patient to call office or check mychart message. Chayito Cedeno RN [facility] 10-16-2024 Miscellaneous Notes Left message for patient to call office or check mychart message. Chayito Cedeno RN Please let the patient know that her vitamin D level is low and I would like her to take 2000 units daily. Caren Carreno APRN.CNP documented in this encounter [facility] 10-15-2024 Telephone encounter Note Please let the patient know that her vitamin D level is low and I would like her to take 2000 units daily. Caren Carreno APRN.CNP [facility] Work Phone: 10-13-2024 Progress note Formatting of [...] - RTO 4 wks Hiren Jordan DO [facility] Work Phone: 10-13-2024 Miscellaneous Notes SW- Pt [...] Hiren Jordan DO documented in this encounter [facility] 10-13-2024 Instructions Steve Ramirez MA - 10/13/2024 10:15 AM EST SEQUENTIAL SCREENINGS The [facility] offers sequential screenings for women who are [...] It will require an appointment with our transfill technician. This is not an ultrasound performed [...] the above symptoms, contact our office at [phone] and ask to speak with a nurse. After hours, you can call doctors registry at [phone] OR call [facility] at [phone] and ask to have the doctor integration consultant paged. If you consider this an emergency, dial 91-9 or go to your nearest emergency department. NEED HELP? Are you dealing with a violent or abusive relationship? Are you a victim of rape or sexual assult? Call [facility] ([place]) 24 hour Crisis Hotline: 453.633.1124 or 366-764-0397. MANUAL Your Guide to a Healthy manual is now on-line. Visit [email or web address] ncyGuide to download your free copy documented in this encounter [facility] 10-11-2024 Telephone encounter Note Patient notified. She has not yet decided. Asked that she please let us know her decision at her appointment with SW on Wednesday. Dulce Chang RN [facility] 10-11-2024 Miscellaneous Notes Patient notified. She has [...] Tash Romero MA documented in this encounter [facility] 10-10-2024 Telephone encounter Note Pt scheduled to see SW on Wednesday, looks like she was supposed to schedule a nuchal ultrasound. LM for patient to call back to discuss if she still wants to have this done. She is a twin . 10:30 slot on 10/19/24 on hold for patient if she wishes to proceed with nuchal ultrasound. Tash Romero MA [facility] 09-13-2024 Instructions Yancy Rodriguez APRN.UNDERWRITING ANALYST - 09/13/2024 9:19 AM EST Images from the original note were not included. Please select the following link to access the [facility] Your Guide to a Healthy . www.Ccf.org/healthypregnancyguide MORNING SICKNESS IN by Rajwinder Rodriguez M.D. for The Learning ExperienceAcademy As you may already know, morning sickness can often be more appropriately called evening sickness or mhxuz-ftzbfy-gf-the-day sickness. While there are the justin few, [...] medication, Doxylamine, is currently marketed as an yulo-nib-npnwfgk sleeping pill. Ask your practitioner if creating a vitamin B6/Doxylamine combination with jxvo-min-umidncy medications would be safe for you. Prescription [...] to help control my nausea and vomiting? Blyk has a helpful fact sheet on nausea in with recommendations. You can review it here: https://Applied Visual Sciences.org/fact-she ets/mzqukv-kmkhkjcg-qcyojrvob-nvp /pdf/. Also, eating small meals often, drinking [...] . For more information, please see the MotherToBaSintact Medical Systems, LLC fact sheet Paternal Exposures at https://mothertobaby.org/fact-she ets/xkgigghm-ygqpvxadr-htuguumiq/ pdf/. Psychotherapy Services at [facility] Call Behavioral Health Access Line at [phone] to schedule Individual psychotherapy In-person or virtual Wait time for first evaluation may be 12 or more weeks. Wait list spots may be available. Due to the high volume of patients this option is recommended if you are looking for short term acute symptom coping strategies. 4-481-2-UOTH3WCTS - Netarts Maternal Mental Health Hotline If you are in suicidal crisis, please call or text 6-728-232-TALK ( ) or visit the National Suicide Prevention Lifeline website. mchb.[facility] cent[facility].gov If you are in crisis, call 001 or go to your nearest Emergency Department Here are some links for wonderful Providers here in the community and surrounding areas. Do not hesitate to contact their offices, many are offering virtual visits during this time. Psychotherapy Services outside of [facility] Support International Online Provider Directory https://Pristine.io/ - can assist in finding providers in your area that might be more extensive then the list below. [facility] [place], [place] [address] [place] [address] [facility] [address] [place] [address] [facility] [address] [place] [address] [facility] [address] [place], [place] [id number] Hector Butler MD [address] [place] [address] [facility] [address] [facility], [address] [place] [address] [facility] [address] [place] [address] [facility] Barajas / [place] [phone]/ [phone] Mayelin Anthony [address] [facility] [address] [facility] [phone] Aves of Counseling and Mediation Jenn / Alice [phone] Behavioral [facility] services [facility] [address] [place] [address]/ [place] [phone] Ryanne Calvo, WALLY, ROWAN Bump and Beyond Family Therapy Workshops, telehealth and at home visits. [phone] [facility] counseling [place] 20 locations [place], [place], [place], [place], [place], [place], [place], [facility], [place], [place], [place], [place], [place], [place], [facility], [place], [place] ,[facility], [place], [place],[facility], south [place], [place], [facility], [facility], [place] www.arbor health.[facility] [phone] Psychotherapy resources outside of [facility] are listed below [facility] Psychotherapy Web: https://www.Packet Island/ Support International Online Provider Directory https://Pristine.io/ [facility] https://Global BioDiagnostics/ Shippo for Behavioral Health and Wellness Web: https://Hybrid Energy Solutions/ FarmLogs for Effective Living Web: https://Ship It Bag Check/ LifeStance Web: https://RxRevu.GraphOn/location/s stanley/[place]/ [facility] Web: https://www.Kidlandialovelace [facility].or / [facility] Web: https://Corduro.org/ Recovery Resources Mental health and substance abuse help Web: https://www.SkilledWizards.org & RESOURCES Support International Direct peer support and connection to professional resources Non-Emergency Helpline Phone: / Text: [phone] Web: https://www..net/ Online Provider Directory: https://Pristine.io/ Online Support Meetings: https://www..net/get-he lp/ngg-uxanti-zucdklh-meetings/ SUSAN Baby and Supervisor Scenic Arts Services Web: https://www.Remedify/ MotherToTrapsterby Expert information on medication use during and Text: [phone] Web: https://Applied Visual Sciences.Restopolitan/ NATIONAL REGISTRY FOR PSYCHIATRIC MEDICATIONS Currently studying the safety of antidepressants, ADHD medications and atypical antipsychotics taken during TO PARTICIPATE CALL TOLL-FREE: Web: https://womenentalhealth.org/re search/pregnancyregistry/ Support Groups: [facility]- Follow on facebook Baby Bistro support group led by [facility] department Resilient Mamas - Support Group [facility].org The POEM support group [phone] Www.poemonline.org Follow on facebook - SIMONA cerda Online support meetings PSI https://www..net/get-he lp/stp-ivfaxy-yfmwhkd-meetings/ [facility] mommy and me virtual support group 11:30-1pm Support for mothers and new babies and toddlers [place] childbirth education: Childbirth @cc.org or call [phone] CRISIS: CRISIS HOTLINE [phone], 911 or go to the nearest . [facility] [phone] / [facility] [phone] https://www.[facility].org Crisis text line text the word HOME to [phone] [facility] [address] billie [address] [facility] [address] www.Bensussen Deutsch.GraphOn Maryann Elena clinical counseling [address] [address] www.Cedar Books [phone] Holding space psychotherapy Claudine Burk PROSTHETIC TECHNICIAN COUNSELING PROGRAM LEADER-S [address] [facility] www.Formspring [phone]/ Charmaine [phone] They all offer virtual. All work with trauma Support groups Online support meetings PSI https://www..net/get-he lp/uqf-tlhisc-uaukfid-meetings/ Here are the support groups they offer: Support of parents of 1 to 4 years old children POEM ( Outreach and Encouragement for Moms) offers free support for mothers experiencing depression, anxiety, and other mood and anxiety disorders. Masks are recommended but not required. No pre-registration required. Babies in arms welcome. meetings now take place on the and Wednesday of each month Location: [facility] [address] [place] [address] Room 122 (library room) 7-8:00 p.m. When you enter the [facility] parking lot off of [address], the entrance door closest to our meeting room is on the front of the building toward the right. For those who are more comfortable with a virtual platform, POEM offers online support group options several days of the week. To register for an online group or to find out more about POEM, website at: https://aohio.org/get-help/[facility] medical centerpnze-spjycg-xmgdyj/poem-services/ offer a confidential helpline: private Facebook group is called SIMONA Cerda Here are the groups they offer: Traumatic childbirth resources: Http://pattch.org/ https://www.DealCuriousramoneDimple Dough.GraphOn/ Name Location (s) Phone # (s) Services Website [facility] Psychotherapy [address] [place], [place] - [phone]; [address] [phone] In-Person GROUPS INDIVIDUAL THERAPY MATERNAL- MENTAL HEALTH MEDICATION MANAGEMENT PLAY AND ART THERAPY TELETHERAPY https://www.Fitwall.GraphOn/s ervices/ Cornerstone of Rhonda JUÁREZ? [address] [place], [place] [address] ? [address], [address] [place], [place] [address] ? JACKSON [address] [place], [place] [address]? Grief Support Groups Individual Grief Counseling Spiritual Care Memorial Events https://arie.[facility].org/grief-services [facility] [address] [place], [place] [address]; ; Email: eileen@Straight Up English Women's Mental Health; Couples Counseling; Trauma (EMDR); Stress Management; Mood and Anxiety Related Disorders- and much more https://www.Edsby/ LifeStance Numerous as they have contract providers: access website to find specific providers near you Counseling including CBT and EMDR as well as many more modalities; Medication Management; Telehealth and In-Person https://Siesta Medical/ Shippo for Behavioral Health and Wellness [address] [place], [place] [address]; [phone] Personal, Family and Group Therapy; Psychological Testing and Diagnosis; Medication Management; Life and Career Coaching; Psychoanalysis; Literacy Testing; Yoga and Meditation https://Hybrid Energy Solutions/ Right90 [facility] [address] [facility] [address], [place] [address] [address] ; Psychiatric hospital, demolished [address] [facility] [address] [place] [address]; Office # for both sites: Individual and Couples Counseling https://www.Image Engine Design.GraphOn/ paymentinsurance.html OCD & Anxiety [facility] [address] [facility], [address], [place] [address]; Specialize in Cognitive-Behavioral Therapy (CBT) for the treatment of anxiety disorders across the lifespan. TELEHEALTH ONLY. https://ocdandanxietycenteroNovint MegaZebra/faqs [facility] [address] [facility], 6th [place], [address] [place] [address] [facility] [place], [address] [place] [address] [place], [address] [place] [address] [place], [address], [id number] [address] [place], [address] [place] [address] [place], [place], [id number] Transportation Services To minimize patient barriers, [facility] provides transportation services to patients who qualify. If you are unable to get to your appointment at any of our facilities, please let us know. Need help now? Stop by one of our walk-in clinics to establish behavioral health care. Counseling Indvidual, Group, Couples and Family Counseling and EMDR. Medication Management Case Management benefits applications housing assistance Substance abuse treatment Medication assisted treatment https://www.[facility].or g/mental-health/ [facility] OFFICE AT [facility] [address] [place] [address] [facility] OFFICE [address] [place] [address] [facility] OFFICE [address] [place] [address] TO OFFICE (at [facility]) [address] [place] [address] [facility] SYRINGE EXCHANGE PROGRAM & HIV SCREENING [address] [place] [address] BAYSIDE SYRINGE EXCHANGE PROGRAM [address] [place] [address] Behavioral Health Urgent Care: [facility] Counseling Indvidual and Group Medication Management Case Management benefits applications housing assistance Substance abuse treatment Medication assisted treatment Employment Services/ Job Training https://theVocalyticsokio.org/ Recovery Resources [address] [place], [place] [address]: P: [phone] [address] [facility], [address], [place] [address] P: [phone] Our services include: Addiction Mental Health Treatment Assessment Psychiatry Medical Care Employment Housing Drug and Alcohol Prevention HIV/AIDS Prevention https://www.recres.org/ [facility] [place] [address] [place] [address] [place] [address] [place] [address] [address] [place], [place] [address] [place] [address] [place] [address] [place] [address] [facility] [address] [place] [address] [place] [address] [place] [address] TMS Therapy/ Counseling Psychocological Testing for ADHD Medication Management In-Person/ Telemedicine https://www.White Source.com/marlena ents-depression Memory & Psychological services [address], [place] [address] Neuropsychological Testing For ADHD https://www.memoryandpsych.com/ [facility] - Main Office [address] [place], [place] [address] [address] [address] [address] [place], [place] [address] Providing dnzo-tb-jlgs and telehealth services. Adult Case Management Community Education and Prevention Employment Outpatient Treatment - Counseling & Psychotherapy Psychiatric Services http://www.ccc.org/ [facility] [place] [address] [place] [address] Annabella [facility] [address] [place] [address] Virtual Appointments! Now offering safe and convenient virtual client appointments to anyone in [place]! Individual Therapy Couples/Relationship Therapy Trauma/EMDR Therapy Art Therapy Play Therapy Lift Mechanic Support: Parenting Skills, Parent Child Interaction Therapy, Parent Interaction Therapy Meditation Dietitian/Associate Vice President Services Group Therapy Yoga https://www.Solix BioSystems, Inc.. GraphOn/ Carlos Saunders [phone] Private Practice: Telehealth Only Specializes in EMDR for Trauma None documented in this encounter [facility] 09-12-2024 Telephone encounter Note completed [facility] 09-12-2024 Miscellaneous Notes completed Left message for patient to return phone call to complete nurse intake questions for her upcoming appointment. Patient has an appointment with Yancy Rodriguez for NOB appointment. I am here today and tomorrow am to complete if she is available documented in this encounter [facility] 09-12-2024 Note HNO ID: [id number] Author: YANCY RODRIGUEZ APRN.UNDERWRITING ANALYST Service: ? Author Type: Nurse Practitioner Type: Progress Notes Filed: 09/13/2024 10:19 Note Text: Labourers offered: Patient declines. HPI: Karissa is a [...] harming myself has occurred to me. Never Harrington Depression Scale Total 6 Feeling nervous, anxious [...] positive findings d (more content not included)... [facility] 09-12-2024 History of Present illness Narrative Labourers offered: Patient declines. HPI: Karissa is a [...] harming myself has occurred to me. 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 As applicable, any other physician, advance practice provider, medical student, or other health professional student that will be observing or involved in the sensitive examination for educational or training purposes was discussed with the Patient or Authorized Cook Fishing Vessel. The Patient or Authorized Cook Fishing Vessel has agreed to proceed with the sensitive [...] Your guide to a health and the Certified Shorthand Reporter. Discussed hemoglobin electrophoresis. Patient: known sickle cell Reviewed midwifery and optical mechanic apprentice services that are available. 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 Yancy Rodriguez APRN.UNDERWRITING ANALYST History of Sickle Cell Anemia - 09/13/2024 Comment: September 13, 2024 Twin brother from sickle cell. FOB had negative carrier screening. MFM consult placed. Yancy Rodriguez APRN.UNDERWRITING ANALYST Obesity Affecting in First Trimester - 04/11/2024 Comment: September 13, 2024 -Pre BMI 35 - Plan for 32 week growth q 4 weeks. - Weekly NSTs at 36 weeks. History of Episiotomy - 09/13/2024 Comment: September 13, 2024 See op record - scanned. Yancy Rodriguez APRN.UNDERWRITING ANALYST Language Barrier - 09/13/2024 Comment: September 13, 2024 Patient and are from [facility]. Patient speaks Danish. Speaks Haitain Creole or Beninese as primary language. Patient declined assistance of crossbar frame wirer. I have explained to her that she can request an crossbar frame wirer at any time during her . Yancy Rodriguez APRN.UNDERWRITING ANALYST History of Gastrointestinal Ulcer - 09/13/2024 Hiatal Hernia - 09/13/2024 Gastroesophageal Reflux Disease Without Esophagitis - 04/11/2024 Comment: September 13, 2024 In 2014 she was diagnosed with a duodenal ulcer and states she was treated for about a year. Has been diagnosed with GERD and a hiatal hernia. Has seen Dr. Burnette at [facility] on August 19, 2021 states her last EGD was done in 2020 Yancy Rodriguez APRN.UNDERWRITING ANALYST Nausea and Vomiting During - 09/13/2024 Comment: September 13, 2024 Vitamin B6 and Unisom doses reviewed. She occasionally vomits up blood. Throwing up 3-4x per day, each time she eats. Rx sent for Zofran. Reviewed first trimester risks and written info provided. To call if not improved by end of this week. Yancy Rodriguez APRN.UNDERWRITING ANALYST History of Chlamydia - 09/13/2024 Comment: September 13, 2024 Treated in January 2024. Yancy Rodriguez APRN.UNDERWRITING ANALYST Constipation During in First Trimester - 09/13/2024 Comment: September 13, 2024 Discussed Colace and increased hydration. Yancy Rodriguez APRN.UNDERWRITING ANALYST Heartburn During in First Trimester - 09/13/2024 [...] Yancy Rodriguez APRN.CNP documented in this encounter [facility] 09-11-2024 Telephone encounter Note Left message for patient to return phone call to complete nurse intake questions for her upcoming appointment. Patient has an appointment with Yancy Rodriguez for NOB appointment. I am here today and tomorrow am to complete if she is available [facility] 07-12-2024 Note HNO ID: [id number] Author: CARLOS JOHN MA Service: ? Author Type: Data Power Consultant Type: Progress Notes Filed: 07/12/2024 14:54 Note Text: POPULATION HEALTH NAVIGATION OUTREACH Action/FYI - Sickle Cell Navigation Outreach Pt is on sickle cell report and needs: Last [facility] OV: N/A Last [facility] Hematology OV: N/A Last [facility] ED Visit Date: N/A - pt on new [place] list Spoke with pt who states she is asymptomatic regarding Sickle Cell and has not seen a Manager Wholesale in years. Pt declines scheduling at this time. Reason for Outreach Medical Neighborhood: Sickle Cell Care Gaps due: Establish Care Appointment Patient Contacted: Spoke to patient/parent/or legal guardian Patient identified by name and date of : Yes Sickle Cell actions taken: Patient declined: Patient Declines Navigation Scheduling / Outreach Navigation Signature: Carlos John MA July 12, 2024 10:41 AM [facility] 07-12-2024 History of Present illness Narrative POPULATION HEALTH NAVIGATION OUTREACH Action/FYI - Sickle Cell Navigation Outreach Pt is on sickle cell report and needs: Last [facility] OV: N/A Last [facility] Hematology OV: N/A Last [place] ED Visit Date: N/A - pt on new [place] list Spoke with pt who states she is asymptomatic regarding Sickle Cell and has not seen a Manager Wholesale in years. Pt declines scheduling at this time. Reason for Outreach Medical Neighborhood: Sickle Cell Care Gaps due: Establish Care Appointment Patient Contacted: Spoke to patient/parent/or legal guardian Patient identified by name and date of : Yes Sickle Cell actions taken: Patient declined: Patient Declines Navigation Scheduling / Outreach Navigation Signature: Carlos John MA July 12, 2024 10:41 AM documented in this encounter [facility] 07-12-2024 Note Patient Outreach (NE TNAV) KARISSA ARIZA ([id number]) 1990 F Date Time Provider Department 07/12/24 [...] Sickle Cell and has not seen a Manager Wholesale in years. Pt declines scheduling at this [...] Date Reviewed: 04/11/2024 Reviewed by: Christy Rosas APRN.UNDERWRITING ANALYST - Fully Assessed Reason for Visit: Population [...] Encounter Status:Closed by CARLOS JOHN on 07/12/24 [facility] 06-12-2024 Note HNO ID: [id number] Author: CARLOS JOHN MA Service: ? Author Type: Data Power Consultant Type: Progress Notes Filed: 06/12/2024 10:09 Note Text: POPULATION HEALTH NAVIGATION OUTREACH Action/FYI - Sickle Cell Navigation Outreach Pt is on sickle cell report and needs: Last [facility] OV: N/A Last [facility] Hematology OV: N/A [...] John MA June 12, 2024 7:20 AM [facility] 06-12-2024 History of Present illness Narrative POPULATION HEALTH NAVIGATION OUTREACH Action/FYI - Sickle Cell Navigation Outreach Pt is on sickle cell report and needs: Last [facility] OV: N/A Last [facility] Hematology OV: N/A Last [facility] ED Visit Date: N/A - pt on new [place] list Voicemail message left and Mychart message sent offering to assist in establishing care with Hematology / PCP as needed. Reason for Outreach Medical Neighborhood: Sickle Cell Care Gaps due: Establish Care Appointment Patient Contacted: Unable or unnecessary to reach patient: Left message PlayRavenhart message sent Navigation Signature: Carlos John MA June 12, 2024 7:20 AM documented in this encounter [facility] 06-12-2024 Note Patient Outreach (NE TNAV) KARISSA ARIZA ([id number]) 1990 F Date Time Provider Department 06/12/24 [...] Date Reviewed: 04/11/2024 Reviewed by: Christy Rosas APRN.UNDERWRITING ANALYST - Fully Assessed Reason for Visit: Population [...] Encounter Status:Closed by CARLOS JOHN on 06/12/24 [facility] 05-11-2024 Note HNO ID: [id number] Author: CARLOS JOHN MA Service: ? Author Type: Data Power Consultant Type: Progress Notes Filed: 05/11/2024 11:03 Note Text: POPULATION HEALTH NAVIGATION OUTREACH Action/FYI - Sickle Cell Navigation Outreach Pt is on sickle cell report and needs: Last [facility] OV: N/A Last [facility] Hematology OV: N/A Last Ophthalmology Exam: N/A Last [facility] ED Visit Date: N/A - pt on new [place] list Voicemail message left and Mychart message sent offering to assist in establishing care with Hematology and PCP as needed. Reason for Outreach Medical Neighborhood: Sickle Cell Care Gaps due: Establish Care Appointment Specialty Scheduling Patient Contacted: Unable or unnecessary to reach patient: Left message PlayRavenhart message sent Navigation Signature: Carlos John MA May 11, 2024 8:40 AM [facility] 05-11-2024 History of Present illness Narrative POPULATION HEALTH NAVIGATION OUTREACH Action/FYI - Sickle Cell Navigation Outreach Pt is on sickle cell report and needs: Last [facility] OV: N/A Last [facility] Hematology OV: N/A Last Ophthalmology Exam: N/A Last [place] ED Visit Date: N/A - pt on new [place] list Voicemail message left and Mychart message sent offering to assist in establishing care with Hematology and PCP as needed. Reason for Outreach Medical Neighborhood: Sickle Cell Care Gaps due: Establish Care Appointment Specialty Scheduling Patient Contacted: Unable or unnecessary to reach patient: Left message MyChart message sent Navigation Signature: Carlos John MA May 11, 2024 8:40 AM documented in this encounter [facility] 05-11-2024 Note Patient Outreach (NE TNAV) JAKELESVIAKANNAN RANDALLOPAL ([id number]) 1990 F Date Time Provider Department 05/11/24 [...] new [place] list Voicemail message left and Dexmohart message sent offering to assist in establishing [...] Date Reviewed: 04/11/2024 Reviewed by: Christy Rosas APRN.UNDERWRITING ANALYST - Fully Assessed Reason for Visit: Population [...] Encounter Status:Closed by CARLOS JOHN on 05/11/24 [facility] 05-01-2024 Telephone encounter Note MC message sent and metformin prescribed. Christy Rosas APRN.CNP [facility] 05-01-2024 Miscellaneous Notes MC message sent and [...] insurance.Inna Rodriguez LPN documented in this encounter [facility] 05-01-2024 Telephone encounter Note Per patient's insurance- patient must complete 3 months of behavior modification and diet restriction before zepbound can be approved. Patient stated that she is ok with trying metformin if zepbound is denied [facility] 04-27-2024 Telephone encounter Note A new prior authorization for Zepbound was submitted with office notes to [facility]. Will await response. [facility] 04-27-2024 Telephone encounter Note Bupropion is prescribed for depression and anxiety with benefit of reducing food cravings and not causing weight gain. Therefore, she is not taking any AOM. Please resubmit. Christy Rosas APRN.SHARDA [facility] 04-25-2024 Telephone encounter Note Medication has been [...] authorized at this time. Tash Romero MA [facility] 04-18-2024 Telephone encounter Note Left message for patient to call office. Dulce Chang RN [facility] 04-17-2024 Telephone encounter Note Please find out what the patient's co-pay is because she was not sure if she would want to pay for it. If her co-pay is acceptable to her, I will place other prescriptions. Christy Rosas APRN.SHARDA [facility] 04-17-2024 Telephone encounter Note [facility] called stating they will need separate scripts for each dose of the Zepbound. They are going to fill the 2.5mg dosage for 28 days, but will need new scripts for the following dosages. CHELSEA.Valerio Chavez RN [facility] 04-11-2024 Telephone encounter Note Electronic PA submitted for Zepbound. Will await further response from pt's insurance.Inna Rodriguez LPN [facility] 04-11-2024 Instructions Christy Rosas APRN.SHARDA - 04/11/2024 [...] slots. This should not be done on PlayRavenhart as you will not be scheduled appropriately and will need to be rescheduled. We appreciate that you have entrusted us with your health and know that we are committed to this process with you. Sincerely, Marisol Anaya MD, RIC ALEX & Christy Rosas CNP Advanced Education from the Obesity Medicine Association Obesity Obesity is a disease that affects nearly one-third of the adult [place] population (approximately 60 million). The number of overweight and obese Americans has continued to increase since 1959, a trend that is not slowing down. Today, 64.5 percent of adult Americans (about 127 million) are categorized as being overweight or obese. Each year, obesity causes at least 300,000 excess deaths in the [place] and healthcare costs of [place] adults with obesity amount to approximately $100 [...] the gallbladder, breast, uterus, cervix, or ovaries https://my.[facility].org/he alth/diseases/56239-ntscnn-tifbpn mvyl-ousmrxv-gmfjnezfp - Eat primarily whole foods. Limit carbs, [...] the only antidepressant associated with weight loss (Siobhan, 2019). Healthcare providers noticed that mostly pleasant [...] associated with weight loss (Siobhan, 2019). https://ro.co/health-guide/wellbu tvpv-xjr-luptau-loss/ Bupropion: Patient drug information Access Syandus Online for additional drug information, tools, and databases. Copyright Mobile Service Pros. All rights reserved. Contributor Disclosures (For additional [...] much, and when it happened. Last Reviewed [id number] Consumer Information Use and Disclaimer This generalized [...] or approved for treating a specific patient. SalonBookr. and its affiliates disclaim any warranty or liability relating to this information or the use thereof. The use of this information is governed by the Terms of Use, available at https://www.Code for Americaer.com/en/ know/qztmytnx-vwpngtjiwcwke-aohsg . 2021 SalonBookr. and its affiliates and/or licensors. All rights [...] dose escalation. Video Instructions for Injecting Mounjaro: https://www.youBiocartisube.com/watch?v=n xnhBdyTSZ0 Savings Card: https://www.YoPro Global/savings- resources Link to Machine Packaging Technician Website Authentic8 Medication Guide: https://pi.Kronomav Sistemas.GraphOn/us/mounjaro- us-mg.pdf?s=mg Written pen instructions: https://uspl.Kronomav Sistemas.com/mounjaro/m ounjaaubrie.html#ug0 Tirzepatide: Patient drug information What is [...] SUMMARY WITH WARNINGS Important Facts About Mounjaro (uicy-RGBQ-PK). It is also known as tirzepatide. Mounjaro [...] effects. You can report side effects at 2-731-KZO-4210 or www.fda.gov/medwatch. Before using Your healthcare provider [...] you take any other prescription medicines or seac-rwc-rcqujug drugs, vitamins, or herbal supplements? How to [...] promptly. Learn more For more information, call 9-845-MkqhdQl ( ) or go to www.YoPro Global. This information does not take the place of talking with your healthcare provider. Be sure to talk to your healthcare provider about Mounjaro and how to take it. Your healthcare provider is the best person to help you decide if Mounjaro is right for you. Mounjaro and its delivery device base are trademarks owned or licensed by Topanga Technologies, its subsidiaries, or affiliates. BRITTANY GONZALEZ CBS FEBRUARY2022 Access Syandus Online for additional drug information, tools, and databases. Copyright 3096-9398 Mobile Service Pros. All rights reserved. Contributor Disclosures (For additional [...] much, and when it happened. Last Reviewed [id number] Consumer Information Use and Disclaimer This generalized [...] or approved for treating a specific patient. SalonBookr. and its affiliates disclaim any warranty or liability relating to this information or the use thereof. The use of this information is governed by the Terms of Use, available at https://www.Mr Po Media.com/en/ know/ysgudzxl-rgwaoieuebiyb-qjejg . METFORMIN Dosing -- Begin Metformin 500 [...] (nih.gov) Is metformin a wonder drug? - [facility] Common side effects of this medication include [...] you feel well. documented in this encounter [facility] 04-11-2024 Note HNO ID: [id number] Author: CHRISTY ROSAS APRN.SHARDA Service: ? Author [...] greens and sometimes beef. Dessert - sometimes [place] Flakes cereal and milk S - 8-9 pm [place] Flakes cereal and milk or fried plantain with meat or pizza or chips Fluids: coffee or frozen iced coffee, regular soda, a little water Bedtime - 2330 Quality of diet: 24hr recall suggests somewhat unhealthy diet. Characterization of diet:Unstructured, unhealthy snacking, excessive cravings, evening snacking, and increased consumption of sugar sweetened beverages. 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 [facility] 04-11-2024 History of Present illness Narrative Images [...] greens and sometimes beef. Dessert - sometimes [place] Flakes cereal and milk S - 8-9 pm [place] Flakes cereal and milk or fried plantain with meat or pizza or chips Fluids: coffee or frozen iced coffee, regular soda, a little water Bedtime - 2330 Quality of diet: 24hr recall suggests somewhat unhealthy diet. Characterization of diet:Unstructured, unhealthy snacking, excessive cravings, evening snacking, and increased consumption of sugar sweetened beverages. 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 - VITAMIN D 25 HYDROXY [...] the patient instructions. Patient also referred to www.zepbound.Techlicious for injection training video and encouraged to [...] training and cardiovascular exercise is the best keno terminal operator plan. An overall goal of 150-200 minutes [...] which included preparing to see the patient, ppgk-rd-lvaj patient care, completing clinical documentation, obtaining and/or reviewing separately obtained history, performing a medically appropriate examination, counseling and educating the patient/family/caregiver, and ordering medications, tests, or procedures. documented in this encounter [facility] 02-11-2024 Instructions Yancy Rodriguez APRN.CNP - 02/11/2024 [...] it is found. documented in this encounter [facility] 02-11-2024 Telephone encounter Note There are no Prolactin results in ConferenceEdge. [facility] 02-11-2024 Miscellaneous Notes There are no Prolactin results in ConferenceEdge. Is there anything in Mobee about a high prolactin level? Was being followed by Cornelia for this. aYncy Rodriguez APRN.SHARDA documented in this encounter [facility] 02-11-2024 Telephone encounter Note Is there anything in Mobee about a high prolactin level? Was being followed by Cornelia for this. Yancy Rodriguez APRN.CNP [facility] 02-11-2024 History of Present illness Narrative Labourers offered: Patient declines. Karissa presents for removal [...] Yancy Rodriguez APRN.CNP documented in this encounter [facility] 01-28-2024 History of Present illness Narrative Radiology [...] PATIENT PRESENTS WITH AN IMPLANTABLE OR ATTACHED CHAIR CAR DRIVER: No RADIOLOGY DEPARTMENT: Ultrasound PERIPHERAL IV DATA: Not applicable SIGNED BY: Swetha Ortiz RDMS January 28, 2024 7:50 AM documented in this encounter [facility] 01-24-2024 Telephone encounter Note PROFICIO message sent to patient with information and instructions. Hetal Santos RN [facility] 01-24-2024 Miscellaneous Notes Telebitt message sent to patient with information and [...] Yancy Rodriguez APRN.SHARDA documented in this encounter [facility] 01-24-2024 Telephone encounter Note Please notify patient by phone: HPV HR+, pap normal. Repeat pap in 1 year. Recommend living as healthy lifestyle as possible so body can fight off HPV. Recommend HPV vaccine if she hasn't had it already. Sometimes insurance doesn't cover after age 26. Recommend she calls her insurance to verify before proceeding. Yancy Rodriguez APRN.CNP [facility] 01-14-2024 Miscellaneous Notes Addended by: YANCY RODRIGUEZ [...] Yancy Rodriguez APRN.CNP documented in this encounter [facility] 01-13-2024 Instructions Yancy Rodriguez APRN.CNP - 01/13/2024 [...] are offering virtual visits during this time. 2-056-3-UDCB4OXII - [facility] Mental Health Hotline If you are in suicidal crisis, please call or text 8-516-164-TALK ( ) or visit the National Suicide Prevention Lifeline website. mchb.[facility].gov [facility] Behavioral Health Psychology, Psychiatry, Counseling Connect with therapist/ can do virtual visits [phone] Referral to the [facility] To schedule an appointment, please call the Center for Behavioral Health Appointment Line: [phone] option 1 [facility] - [place], [place] [address] [place] [address] [facility] [address] [place] [address] [facility] [address] [place] [address] [facility] [address] [place], [place] [id number] Hector Butler MD [address] [place], [place] [phone] [facility] [address] [facility], [address] [place] [address] [facility] [address] [place] [address] [facility] Counseling Services [place] / [place] [phone]/ [phone] Mayelin Anthony [address] [facility] [phone] [facility] and Mediation [place] / [place] [phone] Behavioral [facility] services [facility] [address] [place] [address]/ [place] and archana [phone] Ryanne Calvo, CHIEF ULTRASOUND TECHNOLOGIST, CLC [facility] Workshops, telehealth and at home visits. [phone] [facility] counseling [place] 20 locations [place], [place], [place], [place], [place], [place], [place], [facility], [place], [place], [place], [place], [place], [place], [facility], [place], [place] ,[facility], [place], [place],[facility], [facility], [place], [facility], [facility], [place]ickie www.arbor health.[facility] [phone] Psychotherapy resources outside of [facility] are listed below [facility] PharmaDiagnostics Psychotherapy Web: https://www.Packet Island/ Support International Online Provider Directory https://Pristine.io/ [facility] https://Global BioDiagnostics/ Partners for Behavioral Health and Wellness Web: https://Hybrid Energy Solutions/ FarmLogs for Effective Living Web: https://www.Itsalat Internationalliving.GraphOn/ LifeStance Web: https://RxRevu.GraphOn/location/s nagel/[place]/ [facility] Web: https://www.signaturehealthinc.or / [facility] Web: https://Corduro.org/ Recovery Resources Mental health and substance abuse help Web: https://www.Genprex.org & RESOURCES Support International Direct peer support and connection to professional resources Non-Emergency Helpline Phone: / Text: [phone] Web: https://www..net/ Online Provider Directory: https://Virtusize.GraphOn/ Online Support Meetings: https://www..net/get-he lp/nax-khiipp-alddxka-meetings/ SUSAN Baby and Supervisor Scenic [employer] Services Web: https://Appier/ Blyk Expert information on medication use during and Text: [phone] Web: https://Pombai/ NATIONAL REGISTRY FOR PSYCHIATRIC MEDICATIONS Currently studying the safety of antidepressants, ADHD medications and atypical antipsychotics taken during TO PARTICIPATE CALL TOLL-FREE: Web: https://[facility].org/re search/pregnancyregistry/ Support Groups: [facility]- Follow on facebook Baby Bistro support group led by [facility] department [facility] - Support Group [facility].org The POEM support group [phone] Www.poAVOS Systemsonline.org Follow on facebook - POEM juárez chapter Online support meetings PSI https://www..net/get-he lp/ffy-gcotnv-zpmteyz-meetings/ [facility] mommy and me virtual support group 11:30-1pm Support for mothers and new babies and toddlers [facility] education: Childbirth @cc.org or call [phone] CRISIS: CRISIS HOTLINE [phone], 911 or go to the nearest [facility] [phone] / [facility] [phone] https://www.[facility], manhattanrb.org Crisis text line text the word HOME to [phone] [facility] [address] wise [address] [facility] [address] www.Bensussen Deutsch.GraphOn Maryann Elena clinical counseling [address] [facility] [address] [place] [address] www.Glimpse.GraphOn [phone] Holding space psychotherapy Claudine Burk PROSTHETIC TECHNICIAN COUNSELING PROGRAM LEADER-S [address] [facility] www.Formspring [phone]/ Charmaine [phone] They all offer virtual. All work with trauma Support groups Online support meetings PSI https://www..net/get-he lp/frr-pvrwor-jaxhaig-meetings/ Here are the support groups they offer: Support of parents of 1 to 4 years old children POEM ( Outreach and Encouragement for Moms) offers free support for mothers experiencing depression, anxiety, and other mood and anxiety disorders. Masks are recommended but not required. No pre-registration required. Babies in arms welcome. meetings now take place on the and Wednesday of each month Location: [facility] [address] [place] [address] Room 122 (library room) 7-8:00 p.m. When you enter the [facility] parking lot off of [address] the entrance door closest to our meeting room is on the front of the building toward the right. For those who are more comfortable with a virtual platform, POEM offers online support group options several days of the week. To register for an online group or to find out more about POEM, website at: https://mhaohio.org/get-help/[facility] centermjyk-apdzbh-uzfjon/poem-services/ offer a confidential helpline: private Noovo group is called POSAMANTHA Cerda Here are the groups they offer: Traumatic childbirth resources: Http://pattch.org/ https://www.wadeTreasure In The Sand Pizzeriafariba InvenSense.GraphOn/ documented in this encounter [facility] 01-13-2024 History of Present illness Narrative Labourers offered: Patient declines. Karissa is a 33 [...] was being followed by Dr. Esqueda of [facility]. She had visual changes at one time [...] OB History No obstetric history on file. Lead Producer History LMP: IUD Age at Menarche: Age at First : Age at Menopause: Lead Producer History Comments: Sexual Activity: Yes; Male Contraception: [...] external genitalia normal, normal Bartholin's glands, urethra, Ensley's glands, no vulvar lesions, no cervical lesions, [...] - COMPREHENSIVE METABOLIC PANEL - CONSULT TO [facility] WEIGHT MANAGEMENT PROGRAM - PROLACTIN Class 2 obesity with body mass index (BMI) of 35.0 to 35.9 in adult, unspecified obesity type, unspecified whether serious comorbidity present - ICD9: 278.00, V85.35, ICD10: E66.9, Z68.35 - Recommend walking for 15 minutes after meals - Recommend increased protein intake - CONSULT TO [facility] WEIGHT MANAGEMENT PROGRAM Pelvic pain in female [...] Plan for pelvic ultrasound. Follow up with [facility] weight management. Yancy Rodriguez APRN.CNP Medical Decision Making: Problems: Moderate: 2+ stable chronic illnesses, 1+ chronic illnesses with change and New problem with uncertain prognosis Data: Unique test(s) ordered: 3+ Risk: Low: Low risk from testing/treatment Moderate: Drug management Medical Decision Making Level: 4 - Moderate documented in this encounter [facility] 01-06-2024 Miscellaneous Notes Called patient. She was unable to answer the questions at this time. She will call back when she is free. Maryann Bryant MA documented in this encounter [facility] 11-30-2021 Note [facility] Medical Records Department [address] [place] [address] History Physical Exam 11/30/21 0806 MR#: [id number] Acct: [id number] Name: KEAGANFRANDYJONH Rep #: [id number] : 1990 31 From: Zaheer Quinn MD PCP: Care Physician,No Primary Status:ADM IN Location: [id number] History and Physical Date of Admission: 11/30/21 ACOG ANTEPARTUM RECORD - HISTORY AND PHYSICAL (11/30/2021) Name: KARISSA PERDOMO History of this : This is a 31 year old [id number] presents at 40 wks + 4 days gestation in active labor. OB Physician: TYRA ESQUEDA MD [place]'s Physician: UNDECIDED ................................. ................................. .... : 1990 Age: 31 [address]: [address] [place] [address] Phone: (H) [phone] (O) [phone] Insurance Carrier: [employer] [id number] Emergency Contact: MARY EDWARDS [phone] ................................. ................................. .... Final JACQUE: 11/26/21 By [...] 15-20 min walks most days. 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 Illicit Drug Use - denies use of street drugs Sexual Activity - Residence - Lives w/ a roommate Place of - [facility] Hours Worked - FT Spouse-Sig Other Name - Seda Arredondo Spouse-Sig Other Occupation - MD in [employer] PRIOR DELIVERY HISTORY DEL DATE GEST LAB WT LB WT OZ TYPE ANES LABOR TX ANTEPARTUM FLOW CHART VISIT GE RTC FU F F [place] U U DATE WK MD WKS HT PN HR M SS BP ED WT [place] GL D EF ST __ ____ ___ [...] [place]. TAE Oct (more content not included)... [facility] Evaluation note Diagnosis Onset Date Acid reflux acute Heartburn during a cute Nausea & vomiting acute Vaginal delivery acute [facility] Work Phone: Evaluation note* Diagnosis [...] unspecified depression type [facility] Diagnosis Chlamydial infection Unspecified chlamydial infection, in conditions classified elsewhere and of unspecified site documented [facility] Diagnosis Cervical high risk HPV (human papillomavirus) test positive Cervical high risk human papillomavirus (HPV) DNA test positive documented [facility] Diagnosis Pelvic pain in female Unspecified symptom associated with female genital organs [facility] Diagnosis Encounter for IUD removal- Primary Encounter for removal of intrauterine contraceptive device [facility] Diagnosis Gastroesophageal reflux disease without esophagitis- [...] obesity type (HCC) documented [facility] Diagnosis PCOS (polycystic ovarian syndrome)- Primary Polycystic ovaries IFG (impaired fasting glucose) Impaired fasting glucose Class 2 severe obesity with serious comorbidity and body mass index (BMI) of 36.0 to 36.9 in adult, unspecified obesity type (HCC) documented [facility] Diagnosis PCOS (polycystic ovarian syndrome) Polycystic ovaries IFG (impaired fasting glucose) Impaired fasting glucose Class 2 severe obesity with serious comorbidity and body mass index (BMI) of 36.0 to 36.9 in adult, unspecified obesity type (HCC) documented in this encounter [facility] note* Diagnosis Encounter for supervision of [...] Dysthymic disorder documented in this encounter [facility] note* Diagnosis Encounter for supervision of high risk in first trimester, antepartum- Primary 12 weeks gestation of state, incidental documented in this encounter [facility] note* Diagnosis Heartburn during in first trimester documented in this encounter [facility] note* Diagnosis Encounter for supervision of [...] against influenza documented in this encounter [facility] note* Diagnosis Dichorionic diamniotic twin in [...] culture qtrimester documented in this encounter [facility] note* Diagnosis Encounter for anatomic survey- [...] Unspecified high-risk documented in this encounter [facility] note* Diagnosis Dichorionic diamniotic twin in [...] second trimester documented in this encounter [facility] note* Diagnosis Dichorionic diamniotic twin in first trimester (HCC)- Primary Twin , antepartum History of sickle cell anemia Personal history of diseases of blood and blood-forming organs Depression with anxiety Dysthymic disorder Obesity affecting in second trimester, unspecified obesity type ([facility]) Encounter for anatomic survey ([facility]) Encounter for anatomic survey Sickle cell trait Sickle-cell trait History of depression 19 weeks gestation of ([facility])- Primary state, incidental Obesity affecting in second trimester, unspecified obesity type ([facility]) Dichorionic diamniotic twin in second trimester ([facility]) Twin , antepartum Supervision of high risk in second trimester ([facility]) Unspecified high-risk Dichorionic diamniotic twin in second trimester ([facility])- Primary Twin , antepartum Supervision of high risk in second trimester ([facility]) Unspecified high-risk Screening for diabetes mellitus * Assessment & Plan Note - Yasmeen Edmond MD - 01/02/2025 3:47 PM EDT Associated Problem(s): Supervision of high risk in second trimester ([facility]) Orders: GESTATIONAL GLUCOSE SCREEN, 1-HOUR, 50 GRAM, NON-FASTING; Future SYPHILIS TREPONEMAL W/REFLEX; Future ANEMIA REFLEX PANEL; Future documented in this encounter [facility] note* Diagnosis Dichorionic diamniotic twin in first trimester (HCC)- Primary Twin , antepartum History of sickle cell anemia Personal history of diseases of blood and blood-forming organs Depression with anxiety Dysthymic disorder Obesity affecting in second trimester, unspecified obesity type ([facility]) Encounter for anatomic survey ([facility]) Encounter for anatomic survey Sickle cell trait Sickle-cell trait History of depression 19 weeks gestation of ([facility])- Primary state, incidental Obesity affecting in second trimester, unspecified obesity type ([facility]) Dichorionic diamniotic twin in second trimester ([facility]) Twin , antepartum Supervision of high risk in second trimester ([facility]) Unspecified high-risk Dichorionic diamniotic twin in second trimester ([facility])- Primary Twin , antepartum Supervision of high risk in second trimester ([facility]) Unspecified high-risk Screening for diabetes mellitus Dichorionic diamniotic twin in second trimester ([facility])- Primary Twin , antepartum 23 weeks gestation of ([facility]) state, incidental documented in this encounter [facility] note* Diagnosis Dichorionic diamniotic twin in first trimester ([facility])- Primary Twin , antepartum History of sickle cell anemia Personal history of diseases of blood and blood-forming organs Depression with anxiety Dysthymic disorder Obesity affecting in second trimester, unspecified obesity type ([facility]) Encounter for anatomic survey ([facility]) Encounter for anatomic survey Sickle cell trait Sickle-cell trait History of depression 19 weeks gestation of ([facility])- Primary state, incidental Obesity affecting in second trimester, unspecified obesity type ([facility]) Dichorionic diamniotic twin in second trimester ([facility]) Twin , antepartum Supervision of high risk in second trimester ([facility]) Unspecified high-risk Dichorionic diamniotic twin in second trimester ([facility])- Primary Twin , antepartum Supervision of high risk in second trimester ([facility]) Unspecified high-risk Screening for diabetes mellitus Encounter for ultrasound to check growth ([facility])- Primary Encounter for routine screening for malformation using ultrasonics Dichorionic diamniotic twin in second trimester ([facility]) Twin , antepartum 27 weeks gestation of ([facility]) state, incidental documented in this encounter [facility] note* Diagnosis Dichorionic diamniotic twin in first trimester ([facility])- Primary Twin , antepartum History of sickle cell anemia Personal history of diseases of blood and blood-forming organs Depression with anxiety Dysthymic disorder Obesity affecting in second trimester, unspecified obesity type ([facility]) Encounter for anatomic survey ([facility]) Encounter for anatomic survey Sickle cell trait Sickle-cell trait History of depression 19 weeks gestation of ([facility])- Primary state, incidental Obesity affecting in second trimester, unspecified obesity type ([facility]) Dichorionic diamniotic twin in second trimester (HCC) Twin , antepartum Supervision of high risk in second trimester ([facility]) Unspecified high-risk Dichorionic diamniotic twin in second trimester ([facility])- Primary Twin , antepartum Supervision of high risk in second trimester ([facility]) Unspecified high-risk Screening for diabetes mellitus Supervision of high risk in second trimester ([facility])- Primary Unspecified high-risk 27 weeks gestation of ([facility]) state, incidental Dichorionic diamniotic twin in second trimester ([facility]) Twin , antepartum Obesity affecting in second trimester, unspecified obesity type ([facility]) Heartburn during in first trimester ([facility]) Sickle cell trait Sickle-cell trait Encounter for supervision of high risk in second trimester, antepartum ([facility]) documented in this encounter [facility] note* Diagnosis Dichorionic diamniotic twin in first trimester ([facility])- Primary Twin , antepartum History of sickle cell anemia Personal history of diseases of blood and blood-forming organs Depression with anxiety Dysthymic disorder Obesity affecting in second trimester, unspecified obesity type ([facility]) Encounter for anatomic survey ([facility]) Encounter for anatomic survey Sickle cell trait Sickle-cell trait History of depression 19 weeks gestation of ([facility])- Primary state, incidental Obesity affecting in second trimester, unspecified obesity type ([facility]) Dichorionic diamniotic twin in second trimester ([facility]) Twin , antepartum Supervision of high risk in second trimester ([facility]) Unspecified high-risk Dichorionic diamniotic twin in second trimester ([facility])- Primary Twin , antepartum Supervision of high risk in second trimester ([facility]) Unspecified high-risk Screening for diabetes mellitus 29 weeks gestation of ([facility])- Primary state, incidental Obesity affecting in third trimester, unspecified obesity type ([facility]) Dichorionic diamniotic twin in third trimester ([facility]) Twin , antepartum Need for vaccination Need for prophylactic vaccination and inoculation against unspecified single disease * Assessment & Plan Note - Fern Mary MD - 02/13/2025 9:44 AM EDTAssociated Problem(s): Supervision of high risk in second trimester ([facility]) documented in this encounter [facility] note* Diagnosis Dichorionic diamniotic twin in first trimester ([facility])- Primary Twin , antepartum History of sickle cell anemia Personal history of diseases of blood and blood-forming organs Depression with anxiety Dysthymic disorder Obesity affecting in second trimester, unspecified obesity type ([facility]) Encounter for anatomic survey ([facility]) Encounter for anatomic survey Sickle cell trait Sickle-cell trait History of depression 19 weeks gestation of ([facility])- Primary state, incidental Obesity affecting in second trimester, unspecified obesity type ([facility]) Dichorionic diamniotic twin in second trimester ([facility]) Twin , antepartum Supervision of high risk in second trimester ([facility]) Unspecified high-risk Dichorionic diamniotic twin in second trimester ([facility])- Primary Twin , antepartum Supervision of high risk in second trimester ([facility]) Unspecified high-risk Screening for diabetes mellitus 29 weeks gestation of ([facility])- Primary state, incidental Obesity affecting in third trimester, unspecified obesity type ([facility]) Dichorionic diamniotic twin in third trimester ([facility]) Twin , antepartum Need for vaccination Need for prophylactic vaccination and inoculation against unspecified single disease Dichorionic diamniotic twin in third trimester ([facility])- Primary Twin , antepartum Obesity affecting in third trimester, unspecified obesity type ([facility]) Anemia complicating , third trimester ([facility]) Supervision of high risk in third trimester ([facility]) Unspecified high-risk Skin rash Rash and other nonspecific skin eruption 32 weeks gestation of ([facility]) state, incidental Multigravida of advanced maternal age in third trimester ([facility]) * Assessment & Plan Note - Marisol Roman MD - 03/02/2025 9:47 AM EDT Associated Problem(s): Anemia complicating , third trimester ([facility]) Will repeat cbc in 2 weeks Has been taking iron for only 2 weeks or so. Orders: COMPLETE BLOOD COUNT; [facility] Dichorionic diamniotic twin in first trimester ([facility])- Primary Twin , antepartum History of sickle cell anemia Personal history of diseases of blood and blood-forming organs Depression with anxiety Dysthymic disorder Obesity affecting in second trimester, unspecified obesity type ([facility]) Encounter for anatomic survey ([facility]) Encounter for anatomic survey Sickle cell trait Sickle-cell trait History of depression 19 weeks gestation of ([facility])- Primary state, incidental Obesity affecting in second trimester, unspecified obesity type ([facility]) Dichorionic diamniotic twin in second trimester ([facility]) Twin , antepartum Supervision of high risk in second trimester ([facility]) Unspecified high-risk Dichorionic diamniotic twin in second trimester ([facility])- Primary Twin , antepartum Supervision of high risk in second trimester ([facility]) Unspecified high-risk Screening for diabetes mellitus 29 weeks gestation of ([facility])- Primary state, incidental Obesity affecting in third trimester, unspecified obesity type ([facility]) Dichorionic diamniotic twin in third trimester ([facility]) Twin , antepartum Need for vaccination Need for prophylactic vaccination and inoculation against unspecified single disease Dichorionic diamniotic twin in second trimester ([facility]) Twin , antepartum Dichorionic diamniotic twin in third trimester ([facility])- Primary Twin , antepartum Obesity affecting in third trimester, unspecified obesity type ([facility]) Anemia complicating , third trimester ([facility]) Supervision of high risk in third trimester ([facility]) Unspecified high-risk Skin rash Rash and other nonspecific skin eruption 32 weeks gestation of ([facility]) state, incidental Multigravida of advanced maternal age in third trimester ([facility]) [facility] Diagnosis Dichorionic diamniotic twin in first trimester ([facility])- Primary Twin , antepartum History of sickle cell anemia Personal history of diseases of blood and blood-forming organs Depression with anxiety Dysthymic disorder Obesity affecting in second trimester, unspecified obesity type ([facility]) Encounter for anatomic survey ([facility]) Encounter for anatomic survey Sickle cell trait Sickle-cell trait History of depression 19 weeks gestation of ([facility])- Primary state, incidental Obesity affecting in second trimester, unspecified obesity type ([facility]) Dichorionic diamniotic twin in second trimester ([facility]) Twin , antepartum Supervision of high risk in second trimester ([facility]) Unspecified high-risk Dichorionic diamniotic twin in second trimester ([facility])- Primary Twin , antepartum Supervision of high risk in second trimester ([facility]) Unspecified high-risk Screening for diabetes mellitus 29 weeks gestation of ([facility])- Primary state, incidental Obesity affecting in third trimester, unspecified obesity type ([facility]) Dichorionic diamniotic twin in third trimester ([facility]) Twin , antepartum Need for vaccination Need for prophylactic vaccination and inoculation against unspecified single disease Dichorionic diamniotic twin in third trimester ([facility])- Primary Twin , antepartum Obesity affecting in third trimester, unspecified obesity type ([facility]) Anemia complicating , third trimester ([facility]) Supervision of high risk in third trimester ([facility]) Unspecified high-risk Skin rash Rash and other nonspecific skin eruption 32 weeks gestation of ([facility]) state, incidental Multigravida of advanced maternal age in third trimester ([facility]) Heartburn during in first trimester ([facility]) [facility] Diagnosis Dichorionic diamniotic twin in first trimester ([facility])- Primary Twin , antepartum History of sickle cell anemia Personal history of diseases of blood and blood-forming organs Depression with anxiety Dysthymic disorder Obesity affecting in second trimester, unspecified obesity type ([facility]) Encounter for anatomic survey ([facility]) Encounter for anatomic survey Sickle cell trait Sickle-cell trait History of depression 19 weeks gestation of ([facility])- Primary state, incidental Obesity affecting in second trimester, unspecified obesity type ([facility]) Dichorionic diamniotic twin in second trimester ([facility]) Twin , antepartum Supervision of high risk in second trimester ([facility]) Unspecified high-risk Dichorionic diamniotic twin in second trimester ([facility])- Primary Twin , antepartum Supervision of high risk in second trimester ([facility]) Unspecified high-risk Screening for diabetes mellitus 29 weeks gestation of ([facility])- Primary state, incidental Obesity affecting in third trimester, unspecified obesity type ([facility]) Dichorionic diamniotic twin in third trimester ([facility]) Twin , antepartum Need for vaccination Need for prophylactic vaccination and inoculation against unspecified single disease Dichorionic diamniotic twin in third trimester ([facility])- Primary Twin , antepartum Obesity affecting in third trimester, unspecified obesity type ([facility]) Anemia complicating , third trimester ([facility]) Supervision of high risk in third trimester ([facility]) Unspecified high-risk Skin rash Rash and other nonspecific skin eruption 32 weeks gestation of ([facility]) state, incidental Multigravida of advanced maternal age in third trimester ([facility]) Dichorionic diamniotic twin in third trimester ([facility])- Primary Twin , antepartum Obesity affecting in third trimester, unspecified obesity type ([facility]) Anemia complicating , third trimester ([facility]) Supervision of high risk in third trimester ([facility]) Unspecified high-risk 33 weeks gestation of ([facility]) state, incidental Heartburn during in first trimester ([facility]) [facility] Diagnosis Dichorionic diamniotic twin in first trimester ([facility])- Primary Twin , antepartum History of sickle cell anemia Personal history of diseases of blood and blood-forming organs Depression with anxiety Dysthymic disorder Obesity affecting in second trimester, unspecified obesity type ([facility]) Encounter for anatomic survey ([facility]) Encounter for anatomic survey Sickle cell trait Sickle-cell trait History of depression 19 weeks gestation of ([facility])- Primary state, incidental Obesity affecting in second trimester, unspecified obesity type ([facility]) Dichorionic diamniotic twin in second trimester ([facility]) Twin , antepartum Supervision of high risk in second trimester ([facility]) Unspecified high-risk Dichorionic diamniotic twin in second trimester ([facility])- Primary Twin , antepartum Supervision of high risk in second trimester ([facility]) Unspecified high-risk Screening for diabetes mellitus 29 weeks gestation of ([facility])- Primary state, incidental Obesity affecting in third trimester, unspecified obesity type ([facility]) Dichorionic diamniotic twin in third trimester ([facility]) Twin , antepartum Need for vaccination Need for prophylactic vaccination and inoculation against unspecified single disease Dichorionic diamniotic twin in third trimester ([facility])- Primary Twin , antepartum Obesity affecting in third trimester, unspecified obesity type ([facility]) Anemia complicating , third trimester ([facility]) Supervision of high risk in third trimester ([facility]) Unspecified high-risk Skin rash Rash and other nonspecific skin eruption 32 weeks gestation of ([facility]) state, incidental Multigravida of advanced maternal age in third trimester ([facility]) Dichorionic diamniotic twin in second trimester ([facility]) Twin , antepartum Dichorionic diamniotic twin in third trimester ([facility])- Primary Twin , antepartum Obesity affecting in third trimester, unspecified obesity type ([facility]) Anemia complicating , third trimester ([facility]) [facility] Diagnosis Dichorionic diamniotic twin in first trimester ([facility])- Primary Twin , antepartum History of sickle cell anemia Personal history of diseases of blood and blood-forming organs Depression with anxiety Dysthymic disorder Obesity affecting in second trimester, unspecified obesity type ([facility]) Encounter for anatomic survey ([facility]) Encounter for anatomic survey Sickle cell trait Sickle-cell trait History of depression 19 weeks gestation of ([facility])- Primary state, incidental Obesity affecting in second trimester, unspecified obesity type ([facility]) Dichorionic diamniotic twin in second trimester ([facility]) Twin , antepartum Supervision of high risk in second trimester ([facility]) Unspecified high-risk Dichorionic diamniotic twin in second trimester ([facility])- Primary Twin , antepartum Supervision of high risk in second trimester ([facility]) Unspecified high-risk Screening for diabetes mellitus 29 weeks gestation of ([facility])- Primary state, incidental Obesity affecting in third trimester, unspecified obesity type ([facility]) Dichorionic diamniotic twin in third trimester ([facility]) Twin , antepartum Need for vaccination Need for prophylactic vaccination and inoculation against unspecified single disease Dichorionic diamniotic twin in third trimester ([facility])- Primary Twin , antepartum Obesity affecting in third trimester, unspecified obesity type ([facility]) Anemia complicating , third trimester ([facility]) Supervision of high risk in third trimester ([facility]) Unspecified high-risk Skin rash Rash and other nonspecific skin eruption 32 weeks gestation of ([facility]) state, incidental Multigravida of advanced maternal age in third trimester ([facility]) Dichorionic diamniotic twin in third trimester ([facility])- Primary Twin , antepartum Obesity affecting in third trimester, unspecified obesity type ([facility]) Anemia complicating , third trimester ([facility]) * Assessment & Plan Note - Fern Mary MD - 03/27/2025 12:22 PM EDTAssociated Problem(s): Anemia complicating , third trimester ([facility]) Orders: ROUTINE, GROUP B STREPTOCOCCUS BY PCR URINE OB DIP B/O [facility] Diagnosis Dichorionic diamniotic twin in first trimester ([facility])- Primary Twin , antepartum History of sickle cell anemia Personal history of diseases of blood and blood-forming organs Depression with anxiety Dysthymic disorder Obesity affecting in second trimester, unspecified obesity type ([facility]) Encounter for anatomic survey ([facility]) Encounter for anatomic survey Sickle cell trait Sickle-cell trait History of depression 19 weeks gestation of ([facility])- Primary state, incidental Obesity affecting in second trimester, unspecified obesity type ([facility]) Dichorionic diamniotic twin in second trimester ([facility]) Twin , antepartum Supervision of high risk in second trimester ([facility]) Unspecified high-risk Dichorionic diamniotic twin in second trimester ([facility])- Primary Twin , antepartum Supervision of high risk in second trimester ([facility]) Unspecified high-risk Screening for diabetes mellitus Anemia complicating , third trimester ([facility])- Primary Abnormal glucose complicating ([facility]) Abnormal maternal glucose tolerance, complicating , childbirth, or the puerperium, unspecified as to episode of care 29 weeks gestation of ([facility])- Primary state, incidental Obesity affecting in third trimester, unspecified obesity type ([facility]) Dichorionic diamniotic twin in third trimester ([facility]) Twin , antepartum Need for vaccination Need for prophylactic vaccination and inoculation against unspecified single disease Dichorionic diamniotic twin in third trimester ([facility])- Primary Twin , antepartum Obesity affecting in third trimester, unspecified obesity type ([facility]) Anemia complicating , third trimester ([facility]) Supervision of high risk in third trimester ([facility]) Unspecified high-risk Skin rash Rash and other nonspecific skin eruption 32 weeks gestation of ([facility]) state, incidental Multigravida of advanced maternal age in third trimester ([facility]) Dichorionic diamniotic twin in third trimester ([facility])- Primary Twin , antepartum Obesity affecting in third trimester, unspecified obesity type ([facility]) Anemia complicating , third trimester ([facility]) [facility] Diagnosis Dichorionic diamniotic twin in first trimester ([facility])- Primary Twin , antepartum History of sickle cell anemia Personal history of diseases of blood and blood-forming organs Depression with anxiety Dysthymic disorder Obesity affecting in second trimester, unspecified obesity type ([facility]) Encounter for anatomic survey ([facility]) Encounter for anatomic survey Sickle cell trait Sickle-cell trait History of depression 19 weeks gestation of ([facility])- Primary state, incidental Obesity affecting in second trimester, unspecified obesity type ([facility]) Dichorionic diamniotic twin in second trimester ([facility]) Twin , antepartum Supervision of high risk in second trimester ([facility]) Unspecified high-risk Dichorionic diamniotic twin in second trimester ([facility])- Primary Twin , antepartum Supervision of high risk in second trimester ([facility]) Unspecified high-risk Screening for diabetes mellitus Abnormal glucose complicating ([facility])- Primary Abnormal maternal glucose tolerance, complicating , childbirth, or the puerperium, unspecified as to episode of care 29 weeks gestation of ([facility])- Primary state, incidental Obesity affecting in third trimester, unspecified obesity type ([facility]) Dichorionic diamniotic twin in third trimester ([facility]) Twin , antepartum Need for vaccination Need for prophylactic vaccination and inoculation against unspecified single disease Dichorionic diamniotic twin in third trimester ([facility])- Primary Twin , antepartum Obesity affecting in third trimester, unspecified obesity type ([facility]) Anemia complicating , third trimester ([facility]) Supervision of high risk in third trimester ([facility]) Unspecified high-risk Skin rash Rash and other nonspecific skin eruption 32 weeks gestation of ([facility]) state, incidental Multigravida of advanced maternal age in third trimester ([facility]) Dichorionic diamniotic twin in third trimester ([facility])- Primary Twin , antepartum Obesity affecting in third trimester, unspecified obesity type ([facility]) Anemia complicating , third trimester ([facility]) [facility] Diagnosis Dichorionic diamniotic twin in first trimester ([facility])- Primary Twin , antepartum History of sickle cell anemia Personal history of diseases of blood and blood-forming organs Depression with anxiety Dysthymic disorder Obesity affecting in second trimester, unspecified obesity type ([facility]) Encounter for anatomic survey ([facility]) Encounter for anatomic survey Sickle cell trait Sickle-cell trait History of depression 19 weeks gestation of ([facility])- Primary state, incidental Obesity affecting in second trimester, unspecified obesity type ([facility]) Dichorionic diamniotic twin in second trimester ([facility]) Twin , antepartum Supervision of high risk in second trimester ([facility]) Unspecified high-risk Dichorionic diamniotic twin in second trimester ([facility])- Primary Twin , antepartum Supervision of high risk in second trimester ([facility]) Unspecified high-risk Screening for diabetes mellitus 29 weeks gestation of ([facility])- Primary state, incidental Obesity affecting in third trimester, unspecified obesity type ([facility]) Dichorionic diamniotic twin in third trimester ([facility]) Twin , antepartum Need for vaccination Need for prophylactic vaccination and inoculation against unspecified single disease Dichorionic diamniotic twin in third trimester ([facility])- Primary Twin , antepartum Obesity affecting in third trimester, unspecified obesity type ([facility]) Anemia complicating , third trimester ([facility]) Supervision of high risk in third trimester ([facility]) Unspecified high-risk Skin rash Rash and other nonspecific skin eruption 32 weeks gestation of ([facility]) state, incidental Multigravida of advanced maternal age in third trimester ([facility]) Dichorionic diamniotic twin in third trimester ([facility])- Primary Twin , antepartum Obesity affecting in third trimester, unspecified obesity type ([facility]) Anemia complicating , third trimester ([facility]) Supervision of high risk in third trimester ([facility])- Primary Unspecified high-risk Dichorionic diamniotic twin in third trimester ([facility]) Twin , antepartum Obesity affecting in third trimester, unspecified obesity type ([facility]) Anemia complicating , third trimester ([facility]) 37 weeks gestation of ([facility]) state, incidental documented in this encounter [facility] for referral (narrative)* Diagnostic Procedure Only (Routine) - Authorized Specialty Diagnoses / Procedures Referred By Héctor dorsey Referred To Contact [facility] Diagnoses Pelvic pain in female Procedures US FEMALE PELVIS TRANSVAG US TRANSVAGINAL Yancy Rodriguez APRN.CNP [address] [place] [address] [id number] Referral ID Status Reason Start Date Expiration Date Visits Requested Visits Authorized [id number] Authorized Auto-Generat ed Referral 01/28/2024 10/03/2024 1 1 * Consult, Test, Treat (Routine) - Pending Review Specialty Diagnoses / Procedures Referred By Héctor dorsey Referred To Contact Diagnoses PCOS (polycystic ovarian syndrome) Class 2 obesity with body mass index (BMI) of 35.0 to 35.9 in adult, unspecified obesity type, unspecified whether serious comorbidity present Procedures CONSULT TO [facility] WEIGHT MANAGEMENT PROGRAM OFFICE/OUTPATIENT NEW HIGH MDM 60 MINUTES Yancy Rodriguez APRN.CNP [address] [place] [address] Referral ID Status Reason Start Date Expiration Date Visits Requested Visits Authorized [id number] Pending Review PCP Requested Referral Auto-Generate d Referral 01/13/2024 01/12/2025 1 1 * Outpatient Procedure (Routine) - Pending Review Specialty Diagnoses / Procedures Referred By Héctor dorsey Referred To Contact [facility] Diagnoses Encounter for IUD removal Procedures REMOVE INTRAUTERINE DEVICE REMOVE INTRAUTERINE DEVICE Yancy Rodriguez APRN.CNP [address] [place] [address] [facility] [address] [place] [address] Referral ID Status Reason Start Date Expiration Date Visits Requested Visits Authorized [id number] Pending Review Auto-Generat ed Referral 01/13/2024 01/12/2025 1 1 [facility] Outpatient Procedure (Routine) - Pending Review Specialty Diagnoses / Procedures Referred By Héctor dorsey Referred To Contact [facility] Diagnoses Encounter for IUD removal Procedures REMOVE INTRAUTERINE DEVICE REMOVE INTRAUTERINE DEVICE Yancy Rodriguez APRN.CNP [address] [place] [address] [facility] [address] [place] [address] Referral ID Status Reason Start Date Expiration Date Visits Requested Visits Authorized [id number] Pending Review Auto-Generat ed Referral 02/11/2024 02/10/2025 1 1 T [facility] Summary Purpose Family History No Family History Records FoundNo Family History Records FoundNo Family History Records FoundNo Family History Records Found Advance Directives No Advanced Directives Records Found Advance Directive Response Recorded Date/ Time Living Will No November 30, 022 7:43am Power of Rodbuster No November 30, 2021 7:43am Chief Complaint [...] Christy Rosas APRN.CNP [address] [place] [address] Referral ID Status Reason Start Date Expiration Date V isits Requested Visits Authorized [id number] Pending Review 1 1 Specialty Diagnoses / Procedures Referred By Héctor dorsey Referred To Contact Diagnoses Encounter for supervision of high risk in first trimester, antepartum 8 weeks gestation of Dichorionic diamniotic twin in first trimester History of sickle cell anemia Procedures CONSULT TO MATERNAL MEDI OFFICE/OUTPATIENT NEW HIGH MDM 60 MINUTES Yancy Rodriguez APRN.CNP [address] [place] [address] Referral ID Status Reason Start Date Expiration Date Visits Requested Visits Authorized [id number] Pending Review PCP Requested Referral Auto-Generate d Referral 4 09/13/2025 1 1 Specialty Diagnoses / Procedures Referred By Contac t Referred To Contact [facility] Diagnoses Encounter for supervision of high risk in first trimester, antepartum 8 weeks gestation of Dichorionic diamniotic twin in first trimester Procedures NUCHAL TRANSLUCENCY WHI US NUCHAL TRANSLUCENCY 1ST GESTATION Yancy Rodriguez APRN.CNP [address] [place] [address] [address] Referral ID Status Reason Start Date Expiration Date Visits Requested Visits Authorized [id number] New Request Auto-Generat ed Referral 4 09/13/2025 1 1 Specialty Diagnoses / Procedures Referred By Contac t Referred To Contact [facility] Diagnoses with uncertain dates in first trimester Procedures OBSTETRIC ULTRASOUND WHI US PREG UTERUS AFTER 1ST TRIMEST 1/ GESTATION Yancy Rodriguez APRN.UNDERWRITING ANALYST [address] [place] [address] [address] Referral ID Status Reason Start Date Expiration Date Visits Requested Visits Authorized [id number] New Request Auto-Generat ed Referral 4 09/13/2025 1 1 Additional Source Comments INFORMATION SOURCE (unrecogn ized section and content) DATE CREATED AUTHOR 03/23/[address] [facility] DATE CREATED AUTHOR AUTHOR'S ORGANIZ ATION 08/25/2021 [facility] DATE CREATED AUTHOR AUTHOR'S ORGANIZ ATION 02/07/2022 [facility] DATE CREATED AUTHOR AUTHOR'S ORGANIZ ATION 04/07/2025 [facility] Goals (unrecognized section and content) Goals may be documented in a n alternate section Source Comments (unrecognize d section and content) In the event this informatio n is protected by the Federal Confidentiality of Alcohol and Drug Abuse Patient Records regulations: The Federal rules restrict any use of the information to criminally investigate or prosecute any alcohol or drug abuse patient.[facility] the event this information is protected by the Federal Confidentiality of Alcohol and Drug Abuse Patient Records regulations: The Federal rules restrict any use of the information to criminally investigate or prosecute any alcohol or drug abuse patient.[facility] the event this information is protected by the Federal Confidentiality of Alcohol and Drug Abuse Patient Records regulations: The Federal rules restrict any use of the information to criminally investigate or prosecute any alcohol or drug abuse patient.[facility] the event this information is protected by the Federal Confidentiality of Alcohol and Drug Abuse Patient Records regulations: The Federal rules restrict any use of the information to criminally investigate or prosecute any alcohol or drug abuse patient.[facility] the event this information is protected by the Federal Confidentiality of Alcohol and Drug Abuse Patient Records regulations: The Federal rules restrict any use of the information to criminally investigate or prosecute any alcohol or drug abuse patient.[facility] the event this information is protected by the Federal Confidentiality of Alcohol and Drug Abuse Patient Records regulations: The Federal rules restrict any use of the information to criminally investigate or prosecute any alcohol or drug abuse patient.[facility] the event this information is protected by the Federal Confidentiality of Alcohol and Drug Abuse Patient Records regulations: The Federal rules restrict any use of the information to criminally investigate or prosecute any alcohol or drug abuse patient.[facility] the event this information is protected by the Federal Confidentiality of Alcohol and Drug Abuse Patient Records regulations: The Federal rules restrict any use of the information to criminally investigate or prosecute any alcohol or drug abuse patient.[facility] the event this information is protected by the Federal Confidentiality of Alcohol and Drug Abuse Patient Records regulations: The Federal rules restrict any use of the information to criminally investigate or prosecute any alcohol or drug abuse patient.[facility]In the event this information is protected by the Federal Confidentiality of Alcohol and Drug Abuse Patient Records regulations: The Federal rules restrict any use of the information to criminally investigate or prosecute any alcohol or drug abuse patient.[facility] the event this information is protected by the Federal Confidentiality of Alcohol and Drug Abuse Patient Records regulations: The Federal rules restrict any use of the information to criminally investigate or prosecute any alcohol or drug abuse patient.[facility] the event this information is protected by the Federal Confidentiality of Alcohol and Drug Abuse Patient Records regulations: The Federal rules restrict any use of the information to criminally investigate or prosecute any alcohol or drug abuse patient.[facility] the event this information is protected by the Federal Confidentiality of Alcohol and Drug Abuse Patient Records regulations: The Federal rules restrict any use of the information to criminally investigate or prosecute any alcohol or drug abuse patient.[facility] the event this information is protected by the Federal Confidentiality of Alcohol and Drug Abuse Patient Records regulations: The Federal rules restrict any use of the information to criminally investigate or prosecute any alcohol or drug abuse patient.[facility] the event this information is protected by the Federal Confidentiality of Alcohol and Drug Abuse Patient Records regulations: The Federal rules restrict any use of the information to criminally investigate or prosecute any alcohol or drug abuse patient.[facility] the event this information is protected by the Federal Confidentiality of Alcohol and Drug Abuse Patient Records regulations: The Federal rules restrict any use of the information to criminally investigate or prosecute any alcohol or drug abuse patient.[facility]In the event this information is protected by the Federal Confidentiality of Alcohol and Drug Abuse Patient Records regulations: The Federal rules restrict any use of the information to criminally investigate or prosecute any alcohol or drug abuse patient.[facility]In the event this information is protected by the Federal Confidentiality of Alcohol and Drug Abuse Patient Records regulations: The Federal rules restrict any use of the information to criminally investigate or prosecute any alcohol or drug abuse patient.[facility]In the event this information is protected by the Federal Confidentiality of Alcohol and Drug Abuse Patient Records regulations: The Federal rules restrict any use of the information to criminally investigate or prosecute any alcohol or drug abuse patient.[facility] HospitalIn the event this information is protected by the Federal Confidentiality of Alcohol and Drug Abuse Patient Records regulations: The Federal rules restrict any use of the information to criminally investigate or prosecute any alcohol or drug abuse patient.[facility]In the event this information is protected by the Federal Confidentiality of Alcohol and Drug Abuse Patient Records regulations: The Federal rules restrict any use of the information to criminally investigate or prosecute any alcohol or drug abuse patient.[facility]In the event this information is protected by the Federal Confidentiality of Alcohol and Drug Abuse Patient Records regulations: The Federal rules restrict any use of the information to criminally investigate or prosecute any alcohol or drug abuse patient.[facility]In the event this information is protected by the Federal Confidentiality of Alcohol and Drug Abuse Patient Records regulations: The Federal rules restrict any use of the information to criminally investigate or prosecute any alcohol or drug abuse patient.[facility]In the event this information is protected by the Federal Confidentiality of Alcohol and Drug Abuse Patient Records regulations: The Federal rules restrict any use of the information to criminally investigate or prosecute any alcohol or drug abuse patient.[facility]In the event this information is protected by the Federal Confidentiality of Alcohol and Drug Abuse Patient Records regulations: The Federal rules restrict any use of the information to criminally investigate or prosecute any alcohol or drug abuse patient.[facility] HospitalIn the event this information is protected by the Federal Confidentiality of Alcohol and Drug Abuse Patient Records regulations: The Federal rules restrict any use of the information to criminally investigate or prosecute any alcohol or drug abuse patient.[facility]In the event this information is protected by the Federal Confidentiality of Alcohol and Drug Abuse Patient Records regulations: The Federal rules restrict any use of the information to criminally investigate or prosecute any alcohol or drug abuse patient.[facility]In the event this information is protected by the Federal Confidentiality of Alcohol and Drug Abuse Patient Records regulations: The Federal rules restrict any use of the information to criminally investigate or prosecute any alcohol or drug abuse patient.[facility]In the event this information is protected by the Federal Confidentiality of Alcohol and Drug Abuse Patient Records regulations: The Federal rules restrict any use of the information to criminally investigate or prosecute any alcohol or drug abuse patient.[facility]In the event this information is protected by the Federal Confidentiality of Alcohol and Drug Abuse Patient Records regulations: The Federal rules restrict any use of the information to criminally investigate or prosecute any alcohol or drug abuse patient.[facility]In the event this information is protected by the Federal Confidentiality of Alcohol and Drug Abuse Patient Records regulations: The Federal rules restrict any use of the information to criminally investigate or prosecute any alcohol or drug abuse patient.[facility]In the event this information is protected by the Federal Confidentiality of Alcohol and Drug Abuse Patient Records regulations: The Federal rules restrict any use of the information to criminally investigate or prosecute any alcohol or drug abuse patient.[facility]In the event this information is protected by the Federal Confidentiality of Alcohol and Drug Abuse Patient Records regulations: The Federal rules restrict any use of the information to criminally investigate or prosecute any alcohol or drug abuse patient.[facility]In the event this information is protected by the Federal Confidentiality of Alcohol and Drug Abuse Patient Records regulations: The Federal rules restrict any use of the information to criminally investigate or prosecute any alcohol or drug abuse patient.[facility]In the event this information is protected by the Federal Confidentiality of Alcohol and Drug Abuse Patient Records regulations: The Federal rules restrict any use of the information to criminally investigate or prosecute any alcohol or drug abuse patient.[facility] HospitalIn the event this information is protected by the Federal Confidentiality of Alcohol and Drug Abuse Patient Records regulations: The Federal rules restrict any use of the information to criminally investigate or prosecute any alcohol or drug abuse patient.[facility]In the event this information is protected by the Federal Confidentiality of Alcohol and Drug Abuse Patient Records regulations: The Federal rules restrict any use of the information to criminally investigate or prosecute any alcohol or drug abuse patient.[facility]In the event this information is protected by the Federal Confidentiality of Alcohol and Drug Abuse Patient Records regulations: The Federal rules restrict any use of the information to criminally investigate or prosecute any alcohol or drug abuse patient.[facility]In the event this information is protected by the Federal Confidentiality of Alcohol and Drug Abuse Patient Records regulations: The Federal rules restrict any use of the information to criminally investigate or prosecute any alcohol or drug abuse patient.[facility]In the event this information is protected by the Federal Confidentiality of Alcohol and Drug Abuse Patient Records regulations: The Federal rules restrict any use of the information to criminally investigate or prosecute any alcohol or drug abuse patient.[facility]In the event this information is protected by the Federal Confidentiality of Alcohol and Drug Abuse Patient Records regulations: The Federal rules restrict any use of the information to criminally investigate or prosecute any alcohol or drug abuse patient.[facility] HospitalIn the event this information is protected by the Federal Confidentiality of Alcohol and Drug Abuse Patient Records regulations: The Federal rules restrict any use of the information to criminally investigate or prosecute any alcohol or drug abuse patient.[facility] Reason for Visit (unrecogniz ed section and content) Reason Comments US Specialty Diagnoses / Procedures Referred By Héctor t Referred To Contact [facility] Diagnoses with uncertain dates in first trimester Procedures OBSTETRIC ULTRASOUND I US PREG UTERUS AFTER 1ST TRIMEST GESTATION Yancy Rodriguez APRN.CNP [address] [place] [address] Phone: tel: fax: [address] [phone] Referral ID Status Reason Start Date Expiration Date Visits Requested Visits Authorized [id number] Authorized Auto-Generat ed Referral 10/26/2024 10/03/2025 20 20 Reason Comments Well Woman Reason Comments Results Reason Comments Radiology US Specialty Diagnoses / Procedures Referred By Héctor dorsey Referred To Contact [facility] Diagnoses Pelvic pain in female Procedures US FEMALE PELVIS TRANSVAG US TRANSVAGINAL Yancy Rodriguez APRN.CNP [address] [place] [address] [id number] Referral ID Status Reason Start Date Expiration Date V isits Requested Visits Authorized [id number] Closed Auto-Generate d Referral 01/28/2024 10/03/2024 1 1 Reason Onset Date Comments IUD Removal 02/11/2024 Specialty Diagnoses / Procedures Referred By Héctor dorsey Referred To Contact [facility] Diagnoses Encounter for IUD removal Procedures REMOVE INTRAUTERINE DEVICE REMOVE INTRAUTERINE DEVICE Yancy Rodriguez APRN.CNP [address] [place] [address] [address] Referral ID Status Reason Start Date Expiration Date Visits Requested Visits Authorized [id number] Pending Review Auto-Generat ed Referral 02/11/2024 02/10/2025 1 1 Reason Onset Date Comments Weight Management Weight Management 04/11/2024 Specialty Diagnoses / Procedures Referred By Héctor dorsey Referred To Contact INFORMATION MANAGEMENT SPECIALIST Diagnoses PCOS (polycystic ovarian syndrome) Class 2 obesity with body mass index (BMI) of 35.0 to 35.9 in adult, unspecified obesity type, unspecified whether serious comorbidity present Procedures CONSULT TO [facility] WEIGHT MANAGEMENT PROGRAM OFFICE/OUTPATIENT NEW HIGH MDM 60 MINUTES Yancy Rodriguez APRN.CNP [address] [place] [address] [employer] [address] [place] [address] Referral ID Status Reason Start Date Expiration Date V isits Requested Visits Authorized [id number] Closed PCP Requested Referral Auto-Generated Referral 04/11/2024 [...] NEW MODERATE MDM 45 MINUTES Yancy Rodriguez APRN.UNDERWRITING ANALYST [address] [place] [address] Phone: tel: fax: [facility] [address] [place] [address] Phone: tel: fax: Referral ID Status Reason Start Date Expiration Date V isits Requested Visits Authorized [id number] Closed PCP Requested Referral Auto-Generated Referral 12/05/2024 10/03/2025 1 1 Reason Onset Date Comments Care 12/05/2024 Reason Onset Date Comments Care 01/02/2025 Specialty Diagnoses / Procedures Referred By Héctor dorsey Referred To Contact [facility] Diagnoses Dichorionic diamniotic twin in second trimester (HCC) Procedures OBSTETRIC ULTRASOUND WHI US PREG UTERUS AFTER 1ST TRIMEST 1/1ST GESTATION Fern Mary MD [address] [place] [address] Phone: tel: fax: [facility] [address] [place] [address] Referral ID Status Reason Start Date Expiration Date Visits Requested Visits Authorized [id number] Authorized Auto-Generat ed Referral 12/11/2024 10/03/2025 20 [...] BE BASED ON THE PRIMARY CLINICAL RECORDS. [employer] provides no warranty or guarantee of the accuracy or completeness of information in this document.
--- NOTE | 2025-04-12 08:52 | HP.PCM.OB_ITS ---
HPI - General General Date of Admission: 04/12/25 HPI Narrative TEDDY BOOGIE, is a 34 F who presents for scheduled induction of labor. Maternal Data Information JACQUE Calculator Estimated Delivery Date Method Current WG Current Estimate 04/25/25 Manual 38w 1d PFSH PFSH Medical History (Updated 04/12/25 @ 08:55 by Janeen Abbott CNM) Obesity affecting Dichorionic diamniotic twin Vitamin D deficiency PCOS (polycystic ovarian syndrome) HPV (human papilloma virus) infection Chlamydia contact, treated Anemia Hiatal hernia Anxiety depression Depression Sickle cell trait Duodenal ulcer Nausea & vomiting Home Medications ?Medication ?Instructions ?Recorded ?Last Taken ?Type promethazine 25 mg rectal 25 mg RECTAL Q6H PRN PRN Nino sea ##6 08/15/21 Unknown Rx suppository (Promethegan) esomeprazole magnesium 20 mg 20 mg PO DAILY Check with primary 02/13/22 Unknown Rx capsule,delayed release doctor #90 caps Allergy/AdvReac Type Severity Reaction Status Date / Time No Known Allergies Allergy Verified 04/12/25 08:01 Social History Smoking Status: Never smoker History 1 Elective abortions Hx Para 1 Spontaneous abortions Hx # Term Pregnancies Ectopic pregnancies Hx # Pregnancies Multiple births # of living children 1 NST FHR Rate Baby A Baseline: 140 Variability:: Moderate Accelerations:: 15 x 15 Decelerations:: None NST Reactive:: Yes Uterine Activity:: irregular FHR Rate Baby B Baseline: 135 Variability:: Moderate Accelerations:: 15 x 15 Decelerations:: None NST Reactive:: Yes Uterine Activity:: irregular Vital Signs Vital Signs Vital Signs: 04/12/25 07:56 04/12/25 07:56 Pulse Rate 89 Blood Pressure 116/57 L BP Systolic 116 BP Diastolic 57 Weight Weight: 249 lb Body Mass Index (BMI) 38.9 Labs Labs Labs: Blood Type B POSITIVE Antibody Screen NEGATIVE Hct 27.5 % (37-47) L Hgb 9.0 g/dL (12.0-15.0) L Syphilis Total Ab Non-reactive Rubella IgG Antibody Reactive (Nonreactive) Hep Bs Antigen Non-Reactive (Nonreactive) Hepatitis C Antibody Non-Reactive (Nonreactive) Chlamydia DNA (KIRBY) Negative (Negative) N.gonorrhoeae DNA (KIRBY) Negative (Negative) HIV 1&2 Antibody Non-Reactive (Nonreactive) Glucose 1 Hr 50 gm 119 mg/dL (70-140) Rhogam given: No Assessment & Plan (1) 38 weeks gestation of : (2) Encounter for induction of labor: (3) Duodenal ulcer: (4) Sickle cell trait: (5) Depression: (6) depression: (7) Anxiety: (8) Dichorionic diamniotic twin : PLAN: Plan CE /-2 Start Pitocin at 2 mu/min and increase per policy GBS negative Desires epidural anesthesia prior to AROM Dr. Jordan notified of admission and is collaborating physician
[2025-04-12 08:56] LABS: Hematocrit 30.2 % (37-47); Hemoglobin 10.5 g/dL (12.0-15.0); Immature Granulocytes Count 0.050 X10^3/uL (0.0-0.0); Mean Corp Hgb Conc 34.8 g/dL (32-36); Mean Corpuscular Volume 84.8 fL (81-99); Mean Platelet Vol. 10.9 fl (6.2-12.0); NRBC Flagged by Analyzer 0 % (0-5); Platelet Count 264 K/mm3 (150-450); RBC Distribution Width CV 13.7 % (11.6-14.6); RBC Distribution Width SD 42.8 fl (35.1-43.9); Red Blood Count 3.56 M/mm3 (4.2-5.4); White Blood Count 7.0 K/mm3 (4.4-11.0)
[2025-04-12] MEDS: Oxytocin 15 Units/NS 250ml 15 UNITS/250 ML IV.SOLN 2 UNITS IV (09:04)
[2025-04-12] MEDS: Lactated Ringers 1,000 ML 50 ML IV (09:05)
[2025-04-12 09:23] LABS: Syphilis Antibodies Nonreactive (Nonreactive)
--- NOTE | 2025-04-12 12:40 | PN.OBGYN_ITS ---
Subjective Subjective Patient seen at bedside. Denies any pain with contractions. Sleeping on and off. Objective Data Objective Data Vital Signs: Vital Signs Temp Pulse Resp BP Pulse Ox 98.0 F 91 18 108/59 L 98 04/12/25 11:23 04/12/25 11:22 04/12/25 11:23 04/12/25 11:22 04/12/25 11:23 Weight: 249 lb Body Mass Index (BMI) 38.9 Intake & Output: Intake and Output for Last 24 Hours 04/10/25 04/11/25 04/12/25 23:59 23:59 23:59 Intake Total 12.17 / 12.17 Output Total 600 / 600 Balance -587.83 / -587.83 Lab / Micro Data 04/12/25 08:10 Labs: Laboratory Results - last 24 hr 04/12/25 08:10: WBC 7.0, RBC 3.56 L, Hgb 10.5 L, Hct 30.2 L, MCV 84.8, MCH 29.5, MCHC 34.8, RDW Std Deviation 42.8, RDW Coeff of French 13.7, Plt Count 264, MPV 10.9, Immature Gran % (Auto) 0.700, Neut % (Auto) 63.1, Lymph % (Auto) 24.2, M ace % (Auto) 10.3 H, Eos % (Auto) 1.1, Baso % (Auto) 0.6, Absolute Neuts (auto) 4.4, Absolute Lymphs (auto) 1.70, Nucleated RBC % 0, Syphilis Total Ab Nonreactive, Blood Type B POSITIVE, Antibody Screen NEGATIVE Assessment & Plan (1) Duodenal ulcer: (2) Sickle cell trait: (3) Depression: (4) depression: (5) Anxiety: (6) Dichorionic diamniotic twin : (7) Encounter for induction of labor: PLAN: Plan TAUS confirms vertex/vertex CE /-2- AROM for clear fluid and IUPC placed without difficulty Pitocin at 8 mu/min- continue to increase per policy Epidural when indicated
[2025-04-12] MEDS: Lactated Ringers 1,000 ML 999 ML IV (14:20)
[2025-04-12] MEDS: fentaNYL-bupivacaine (epidural) 100 ML BAG EPIDURAL (15:40)
--- NOTE | 2025-04-12 17:16 | PCM.PN.CNM ---
Subjective Subjective Patient is comfortable with epidural. Resting quietly. Objective Data Objective Data Vital Signs: Vital Signs Temp Pulse Resp BP Pulse Ox 98.0 F 84 16 125/61 H 99 04/12/25 16:17 04/12/25 16:12 04/12/25 16:17 04/12/25 16:12 04/12/25 16:17 Weight: 249 lb Body Mass Index (BMI) 38.9 Intake & Output: Intake and Output for Last 24 Hours 04/10/25 04/11/25 04/12/25 23:59 23:59 23:59 Intake Total 1324.57 / 1324.57 Output Total 900 / 900 Balance 424.57 / 424.57 Lab / Micro Data 04/12/25 08:10 Labs: Laboratory Results - last 24 hr 04/12/25 08:10: WBC 7.0, RBC 3.56 L, Hgb 10.5 L, Hct 30.2 L, MCV 84.8, MCH 29.5, MCHC 34.8, RDW Std Deviation 42.8, RDW Coeff of French 13.7, Plt Count 264, MPV 10.9, Immature Gran % (Auto) 0.700, Neut % (Auto) 63.1, Lymph % (Auto) 24.2, [place] % (Auto) 10.3 H, Eos % (Auto) 1.1, Baso % (Auto) 0.6, Absolute Neuts (auto) 4.4, Absolute Lymphs (auto) 1.70, Nucleated RBC % 0, Syphilis Total Ab Nonreactive, Blood Type B POSITIVE, Antibody Screen NEGATIVE Assessment & Plan (1) Duodenal ulcer: (2) Sickle cell trait: (3) Depression: (4) depression: (5) Anxiety: (6) Dichorionic diamniotic twin : (7) Encounter for induction of labor: (8) 38 weeks gestation of : (9) Obesity affecting : PLAN: Plan CE /-2 unchanged Pitocin at 16 mu/ min will continue to increase per policy NST reactive, Cat. 1 tracing Continue present plan of care
[2025-04-12] MEDS: Oxytocin 15 Units/NS 250ml 15 UNITS/250 ML IV.SOLN 83 UNITS IV (19:25)
--- NOTE | 2025-04-12 19:40 | EX.PCM.OBVAG ---
Assessment & Plan (1) (spontaneous vaginal delivery): (2) Obesity affecting : (3) Duodenal ulcer: (4) Sickle cell trait: (5) Depression: (6) Anxiety: (7) Dichorionic diamniotic twin : (8) Laceration, obstetrical, second degree: (9) Care and examination of lactating mother: Maternal Data Information JACQUE Calculator Estimated Delivery Date Method Current WG Current Estimate 04/25/25 Manual 38w 1d Gestational age: 38.1 Vaginal Delivery Maternal Presentation Maternal Presentation: Medically Indicated Induction Maternal Presentation: at 38.1 weeks gestation for scheduled induction of labor for di/di twins. Type of Induction: Pitocin and Amniotomy Medical Reason for Induction: Other (Twins) Vaginal Delivery Information Procedure Performed: Spontaneous Vaginal Delivery Surgeon/Practitioner: Janeen Abbott Date of Procedure: 04/12/25 Pre-Procedure Diagnosis: Term gestation, induction of labor Post-Procedure Diagnosis: , Live female Type of anesthesia: Epidural Estimated Blood Loss: 400 Time of Delivery: 18:44 Findings Description of procedure: Patient progressed to complete dilation. Patient transported back to OR for delivery with double set up. Dr. Jordan in room. With good maternal effort, head delivered followed by anterior shoulder and remainder of body without any force, delay, or traction. Vigorous female placed on maternal abdomen. Cord clamped and cut and Baby A handed to nursery RN. CE confirmed baby B vertex position. AROM for clear fluid and patient began pushing. head delivered followed by posterior shoulder and remainder of without force or traction. Vigorous female placed on maternal abdomen. Cord clamped and cut by FOB and baby B handed to nursery RN. Pitocin IV started for active management of the third stage of labor. Placenta delivered spontaneously and intact with both cords intact. A second degree laceration was repaired in usual fashion using 3-0 Vicryl Rapid. Hemostasis obtained. Vaginal sweep performed. Fundus is firm 2 below U and bleeding is hemostatic. Sponge and sharps counts correct. Patient and bonding well at this time. Dr. Jordan present. Routine post orders placed. Presentation: Vertex Amniotic Membrane Rupture Type: Artificial Amniotic Fluid Description: Clear Placental Delivery Description: Spontaneous Placenta Disposition: [facility] Specimen collected: No Cord Vessel Description: 3 Vessels Cord Entanglement: None Nuchal Cord Compression: Without compression A Gender: Female (1 minute): 8 (5 minute): 9 Delayed Cord Clamping: No Sales Support Specialist ski binding fitter and repairer: No Post Vaginal Deli Medications given after delivery: IV Pitocin Episiotomy Description: None Laceration: 2nd degree Complication Complications: No Baby B Information Amniotic Membrane Rupture Type: Artificial Presentation: Vertex Operative Information Mode of Delivery: Vaginal ( 1906) Cord Vessel Description: 3 Vessels Cord Entanglement: None Nuchal Cord Compression: Without compression Infant B gender: Female (1 minute): 8 (5 minute): 8 Delayed Cord Clamping: No
[2025-04-13] VITALS: BP 123/74; PULSE 105; RESP 16; TEMP 36.8; O2SAT 97
[2025-04-13 04:00] VITALS: BP 139/77; PULSE 106; RESP 17; TEMP 37.1; O2SAT 96
--- NOTE | 2025-04-13 07:29 | PN.OBGYN_ITS ---
Subjective Subjective Patient seen at bedside. infants. Ambulating and voiding without difficulty. Pain controlled. Desires discharge home tomorrow. Objective Data Objective Data Vital Signs: Vital Signs Temp Pulse Resp BP Pulse Ox O2 Del Method 98.7 F 106 H 17 139/77 H 96 Room Air 04/13/25 04:00 04/13/25 04:00 04/13/25 04:00 04/13/25 04:00 04/13/25 04:00 04/13/25 04:00 Oxygen Delivery Method Room Air Weight: 249 lb Body Mass Index (BMI) 38.9 Intake & Output: Intake and Output for Last 24 Hours 04/11/25 04/12/25 04/13/25 23:59 23:59 23:59 Intake Total 2500.00 / 2500.00 Output Total 2200 / 2200 1200 / 1200 Balance 300.00 / 300.00 -1200 / -1200 Lab / Micro Data Attestation: I reviewed the patient's lab results. 04/12/25 08:10 Labs: Laboratory Results - last 24 hr 04/12/25 08:10: WBC 7.0, RBC 3.56 L, Hgb 10.5 L, Hct 30.2 L, MCV 84.8, MCH 29.5, MCHC 34.8, RDW Std Deviation 42.8, RDW Coeff of French 13.7, Plt Count 264, MPV 10.9, Immature Gran % (Auto) 0.700, Neut % (Auto) 63.1, Lymph % (Auto) 24.2, M ace % (Auto) 10.3 H, Eos % (Auto) 1.1, Baso % (Auto) 0.6, Absolute Neuts (auto) 4.4, Absolute Lymphs (auto) 1.70, Nucleated RBC % 0, Syphilis Total Ab Nonreactive, Blood Type B POSITIVE, Antibody Screen NEGATIVE ROS Eyes Eyes: Denies blurry vision, change in vision or spots in vision ENT HEENT: Denies dizziness or headache(s) Cardiovascular Cardiovascular: Denies abdominal pain, chest pain or dyspnea Respiratory/Chest Respiratory/Chest: Denies cough, dyspnea, shortness of breath at rest or shortness of breath with exertion Gastrointestinal Gastrointestinal: Denies abdominal pain, diarrhea or vomiting Genitourinary Genitourinary: Denies change in urinary stream, difficulty urinating or dysuria Musculoskeletal Musculoskeletal: Reports none Integumentary Integumentary: Denies rash Neurologic Neurologic: Denies dizziness, headache(s), memory loss or weakness Physical Exam Const alert and no apparent distress General Appearance: cooperative and comfortable Exam Limitations: no limitations HEENT normocephalic Eyes General Eye: normal appearance of both eyes Neck full ROM General: normal visual inspection Chest Chest: symmetrical chest wall rise Resp normal respiratory effort and normal air movement Effort and Inspection: symmetric chest movement Auscultation: clear to auscultation bilaterally Cardio regular rate and regular rhythm GI normal to inspection, nondistended, normoactive bowel sounds Back/Spine normal ROM Extremity full ROM and no calf tenderness General Extremity: normal exam except as noted Skin no rashes or lesions noted Neuro oriented x3 Speech: speech normal Psych mental status grossly normal Thought Process: normal thought process Assessment & Plan (1) Care and examination of lactating mother: (2) Laceration, obstetrical, second degree: (3) (spontaneous vaginal delivery): (4) Obesity affecting : (5) Duodenal ulcer: (6) Sickle cell trait: (7) Depression: (8) Anxiety: (9) Dichorionic diamniotic twin : PLAN: Plan PPD 1 Di/Di twins support Anticipate discharge home tomorrow
[2025-04-13 08:05] VITALS: BP 109/60; PULSE 78; RESP 16; TEMP 36.6; O2SAT 98
[2025-04-13] MEDS: Senna/Docusate Sodium 1 Tablet PO (08:42)
[2025-04-13 13:13] VITALS: BP 120/77; PULSE 89; RESP 16; TEMP 36.3; O2SAT 98
[2025-04-13 17:12] VITALS: BP 117/70; PULSE 91; RESP 16; TEMP 36.9; O2SAT 100
--- NOTE | 2025-04-13 19:55 | CASEMGMT ---
Social Work Assessment Labor and Delivery Unit Patient Address[address] [place] Phone number:? [phone] Date of Referral: 04/12/2025 Time of Referral:? 10:00 Referred By: ?Mari Date of Intervention: ???04/13/2025 Time of Intervention:? 13:00 Reason for Referral:? h/o postpardum SW completed chart review and acknowledges consult.? SW presented to bedside and introduced self to mother of baby ( Louceline ? MOB) SW completed SW assessment and asked MOB to complete [place] Depression Scale.? Maternal grandmother and at bedside during most of assessment and participated respectfully.? History obtained from: medical records, MOB ?Household composition:? Patient lives with Patient's parent/guardian status:? ?PIERCE reports that she and DESEANBrandi Seda, have been for 4 years.? They have lived part of those years in the [place] and part of those years in [place]. Medical History: ?PIERCE is a a 34 year old [place] female who is 2 para 1 now 2 following labor and delivery of twin newborns.? MOB received routine care. ?PIERCE presented to the hospital for induction of labor. MOB delivered on 04/12/2025 at 38 weeks gestation.? Baby girl A was born weighing 6 pounds, 13 ounces and had apgars of 8 and 9 at one and five minutes of life.? Baby girl B was born weighing 6 pounds 14 ounces and had apgars of 8 and 8 at one and five minutes of life. Educational Status:? 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 SILVIO is a MD in [facility], is working in consulting in the [employer].?? Financial Status: PIERCE and SILVIO are both gainfully employed outside the home.?? PIERCE states she has 40 days paid leave and 40 days unpaid leave that she is planning on using prior to return to work.? Infant Supplies: ?PIERCE has obtained all necessary baby supplies including: car seat, safe sleep s[isai, clothes, diapers and wipes.? Childcare/Caregiver(s):? MOB will be the primary child care centre manager to baby along with help from maternal grandmother.? When MOB returns to work, maternal grandmother will be child care centre manager. MOB and FOB also hoped to return to [place] for a few years so paternal grandmother could help with children as well. Transportation:?? PIERCE has her drivers license and reliable means of transportation.? No barriers at this time. Programs/Agencies Involved: ???MOB report no involvement with programs or agencies at this time. Children Services/Legal Issues:??? No history of children services involvement, no issues or concerns warreanting referral be made. Behavioral Health Issues: ??Mental Health History:? PIERCE reports that she did not actually have postpardum depression, that when her daughter was 2, they were in [place] and her was kidnapped.? 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 PIERCE states at that time, she went to a doctor and was prescribed an anti-anxiety medication.? MOB reports her symptoms resolved with the return of her and she has not had any mental health concerns since. ?Substance Use History:? None ?Family History:?? None ???Drug Screens: ?No drug screens were noted in the babies charts. Family/Social Stressors.?? MOB reports that the Presidents immigration policies are stressful for the family at this time as they would like to be free to travel to and from [place] as needed.? MOB reports they have concerns traveling.? Support Systems: ?Maternal grandmother, cousin, paternal grandmother. Depression/Shaken Baby/Safe Sleeping: ?SW educated MOB on signs and symptoms of baby blues and mood and anxiety disorders to be mindful of during this period.? SW provided literature for MOB to review regarding these topics.? MON was receptive to information provided. SW educated on MOB on shaken baby prevention and ABCs of safe sleep.? MOB expressed understanding. ASSESSMENT:? MOB, FOB, maternal grandmother and 3 year old daughter were all welcoming of visit and receptive to engagement and conversation.?? Family willingly stepped out during part of assessment to give SW privacy to speak to MOB.? Babies were in their bassinettes during visit, daughter routinely looked in on them, smiled and touched their cheeks.? MOB and FOB allowed daughter to engage and frequently looked at infants.?? PLAN:?? No other services requested or indicated. MOB and baby to be discharged when medically ready. Parents were provided literature regarding: signs and symptoms of baby blues and mood and anxiety disorders, Help Me Grow, shaken baby prevention, ABCs of safe sleep, counseling list ?and a list of county resources that are available for them should any needs present themselves. Naya Cotter, TRIM AND BURR OPERATOR, RETAIL BUSINESS DEVELOPMENT MANAGER
[2025-04-13 20:58] VITALS: BP 117/70; PULSE 87; RESP 16; TEMP 36.7; O2SAT 97
== END 2025-04-13 22:30 | disposition home or self-care (01) | DRG 807 ==
PROVIDERS: Admitting Provider Advanced Practice Midwife; Visit Provider Advanced Practice Midwife
DX: O30.043 Twin pregnancy, dichorionic/diamniotic, third trimester (principal); Z37.0 Single live birth; K26.9 Duodenal ulcer, unspecified as acute or chronic, without hemorrhage or perforation; O99.214 Obesity complicating childbirth; O99.62 Diseases of the digestive system complicating childbirth; Z37.2 Twins, both liveborn; O70.1 Second degree perineal laceration during delivery; O99.02 Anemia complicating childbirth; D57.3 Sickle-cell trait; Z3A.38 38 weeks gestation of pregnancy
CPT/HCPCS: 59025; 59050; 76815; 85025; 86780; 86850; 86900; 86901; 99221; G0378